=== PATIENT | female | born 1960 | race Caucasian/White ===

== ENCOUNTER 2018-04-08 18:01 | Emergency (ER) | payer OTHER ==
--- OUTSIDE RECORDS SUMMARY | 2018-04-08 18:03 | XMS REPORT ---
:1960 Author Organization [employer]Works Care Team Providers Name Role Phone Salomon, Na Provider Role Unavailable Allergies, Adverse Reactions, Alerts Substance Reaction Event Type Morphine Sulfate nausea Drug Allergy Problems Problem Type Condition Code Onset Dates Condition Status Problem Depression with anxiety F41.8 Active Problem Constipation K59.00 Active Problem Seizures R56.9 Active Problem Allergic rhinitis J30.9 Active Assessment Hyperlipidemia E78.5 Active Problem Hypothyroidism E03.9 Active Assessment Hypothyroidism E03.9 Active Assessment Vitamin D deficiency E55.9 Active Problem Hyperlipidemia E78.5 Active Problem Urinary frequency R35.0 Active Problem Hypotension I95.9 Active Problem Benign essential HTN I10 Active Problem Vitamin D deficiency E55.9 Active Problem Localized osteoporosis, unspecified M81.6 Active pathological fracture presence Assessment Benign essential HTN I10 Active Assessment Depression with anxiety F41.8 Active Problem Gastroesophageal reflux disease K21.9 Active without esophagitis Problem Nicotine dependence F17.200 Active Assessment Edema, unspecified type R60.9 Active Problem Vomiting without nausea, R11.11 Active intractability of vomiting not specified, unspecified vomiting type Problem Localized swelling, mass and lump, R22.1 Active neck Assessment Primary insomnia F51.01 Active Problem Mild obesity E66.9 Active Problem Primary insomnia F51.01 Active Medications Medication Code Code Instructions Start End Status Dosage System Date Date Metoprolol [facility] 51488563540 25 MG Orally Active 1 tablet Tartrate Twice a day with food Levothyroxine [facility] 02745417809 88 MCG Orally Active 1 tablet Sodium Once a day on an empty stomach in the morning Potassium NDC 0 Active not defined Furosemide ND 08424275660 40 MG Orally Active 1 tablet Once a day Ambien [facility] 81577443922 10 MG Orally Active 1 tablet Once a day at bedtime as needed Amlodipine [facility] 46203217598 10 MG Orally Active 1 tablet Besylate Once a day Pravastatin [facility] 35939756350 20 MG Orally Active 1 tablet Sodium Once a day Omeprazole [facility] 42724380571 40 MG Orally Active 1 capsule Once a day ProAir HFA [facility] 27150676710 108 (90 Base) Active 1 puff as MCG/ACT needed Inhalation every 6 hours Amitiza [facility] 53888202552 24 MCG Orally Active 1 capsule Twice a day with food Cymbalta [facility] 81676029509 60 MG Orally Active 1 capsule Once a day Furosemide [facility] 96983205698 80 MG Orally Active 1 tablet Once a day Cozaar [facility] 36819423431 100 MG Orally Active 1 tablet Once a day Trazodone HCl [facility] 13835160606 50 MG Orally November 21, Active 1 tablet Once a day 2018 at bedtime as needed Dilaudid [facility] 15821308933 4 MG Orally Active 1 tablet every 4 hrs as needed Advair Diskus [facility] 40680444916 250-50 MCG/DOSE Active 1 puff Inhalation Twice a day Dilantin [facility] 39116918396 100 MG Orally Active 5 capsule Results Name Result Date Reference Range Unit Abnormality Flag Lipid Profile ----HDL Cholesterol 72 97178267 40-60 mg/dL H ----LDL Cholesterol, 102 22312856 <130 Calculated ----Cholesterol/HDL Ratio 2.63 51432085 ----Cholesterol Level 189 71528840 <200 mg/dL ----Triglycerides Level 75 21504317 <150 mg/dL T4 Free ----T4 Free 0.91 09792496 0.76-1.46 CBC with Automated Diff ----Basophils % 0.8 78809674 0-1.3 % ----Eosinophils % 3.1 05652372 0-4.4 % ----Absolute Lymphocytes 1.5 15247196 0.7-4.9 (CBC) ----Absolute Neutrophil 3.2 24409695 1.8-8.0 ----Red Cell Distribution 13.7 71891143 12.1-15.2 % Width ----Absolute Eosinophils 0.2 25289404 0-0.5 ----Platelets 201 89711211 152-406 ----Absolute Monocytes 0.5 78540614 0.1-1.3 ----MCHC 34.3 00622914 32.0-36.0 g/dL ----MCH 31.2 08148867 27.0-35.0 pg ----MCV 90.9 59206789 80-100 fL ----Neutrophils % 59.0 88608922 41.7-73.7 % ----MPV 8.6 30325461 7.6-11.3 fL ----Monocytes % 9.3 60627860 3.3-12.3 % ----Lymphocytes % 27.8 68729222 15.3-44.8 % ----Absolute Basophils 0.0 55748736 0-0.5 ----White Blood Count 5.5 13782255 4.3-10.9 ----RBC Red Blood Cell Count 4.87 23106946 3.86-4.86 M/ul H ----Hemoglobin 15.2 51526931 12.0-15.0 g/dL H ----Hematocrit 44.3 20171122 36.0-45.0 % Comprehensive Metabolic Panel ----Creatinine 0.80 20171122 0.55-1.3 mg/dL ----BUN Blood Urea Nitrogen 18 20171122 7-18 mg/dL ----AST/SGOT 20 20171122 15-37 U/L ----Glomerular Filtration 74 20171122 =/>90 mL L Rate ----Alkaline Phosphatase 89 20171122 45-117 U/L ----Bilirubin Total 0.3 20171122 0.2-1.0 mg/dL ----ALT/SGPT 27 20171122 12-78 U/L ----Albumin 3.7 20171122 3.4-5.0 g/dL ----Bicarbonate 35 20171122 21-32 mmol/L H ----Globulin 3.8 97241826 2.3-3.5 g/dL H ----Glucose Level 71 50640436 74-106 mg/dL L ----Potassium 3.8 81150662 3.5-5.1 mmol/L ----Calcium Level 8.8 66350848 8.5-10.1 mg/dL ----Protein, Total 7.5 20171122 6.4-8.2 g/dL ----Chloride Level 101 20171122 98-107 mmol/L ----Sodium Level 136 20171122 136-145 mmol/L ----Albumin/Globulin Ratio 1.0 20171122 1.1-1.8 L TSH Thyroid Stimulating Hormone ----Thyroid Stimulating 3.56 20171122 0.36-3.74 [iU]/L Hormone Vitamin D, 25 (OH), TOTAL ----Vitamin D, 25 (OH), TOTAL 23.4 20171122 30-100 ng/mL L Summary Purpose eClinicalWorks Submission
--- OUTSIDE RECORDS SUMMARY | 2018-04-08 18:03 | XMS REPORT ---
:1960 Author Organization eClinicalWorks Care Team Providers Name Role Phone Salomon, Na Provider Role Unavailable Allergies No Known Allergies Problems Problem Type Condition Code Onset Dates Condition Status Problem Depression with anxiety F41.8 Active Problem Constipation K59.00 Active Problem Seizures R56.9 Active Problem Allergic rhinitis J30.9 Active Problem Hypothyroidism E03.9 Active Problem Hyperlipidemia E78.5 Active Problem Urinary frequency R35.0 Active Problem Hypotension I95.9 Active Problem Benign essential HTN I10 Active Problem Vitamin D deficiency E55.9 Active Problem Localized osteoporosis, unspecified M81.6 Active pathological fracture presence Problem Gastroesophageal reflux disease K21.9 Active without esophagitis Problem Nicotine dependence F17.200 Active Problem Vomiting without nausea, R11.11 Active intractability of vomiting not specified, unspecified vomiting type Problem Localized swelling, mass and lump, R22.1 Active neck Problem Mild obesity E66.9 Active Problem Primary insomnia F51.01 Active Medications Medication Code System Code Instructions Start End Date Status Dosage Date Amitiza [facility] 46010682786 24 MCG Orally Active 1 capsule Twice a day with food Results No Known Results Summary Purpose eClinicalWorks Submission
--- OUTSIDE RECORDS SUMMARY | 2018-04-08 18:03 | XMS REPORT | Clinical Summary ---
:1960 Author Organization [employer] [facility] Address [address] [place] [address] Care Team Providers Name Role Phone Bong Primary Care Provider Allergies No Known Allergies Medications Medication Sig Dispensed Refills Start Date End Date Status traZODone (DESYREL) Take 50 mg by 0 Active 50 MG tablet mouth nightly Does not know dose . cholecalciferol, Take 5,000 Units 0 Active vitamin D3, 5,000 by mouth once a unit Tab week. UNKNOWN Blood pressure 0 Active med does not know name nor dose . potassium chloride Take 1 tablet (10 10 tablet 0 08/28/2016 08/28/2017 (KLOR-CON) 10 MEQ CR mEq total) by tablet mouth 2 (two) times daily. Active Problems Problem Noted Date Suicidal ideation 08/29/2016 Alcohol intoxication 08/29/2016 Fall, initial encounter 08/29/2016 Social History Tobacco Use Types Packs/Day Years Used Date Current Every Day Smoker Alcohol Use Drinks/Week oz/Week Comments Yes 4 Glasses of wine 2.4 Sex Assigned at Date Recorded Not on file Job Start Date Occupation Industry Not on file Not on file Not on file Travel History Travel Start Travel End No recent travel history available. Last Filed Vital Signs Not on file Plan of Treatment Not on file Results Not on fileafter 04/07/2017 Advance Directives For more information, please contact:[facility] [employer] [place] [address] [address] [place], [place] [phone] Code Status Date Activated Date Inactivated Comments Full Code 08/29/2016 12:42 AM 08/29/2016 4:35 PM This code status was determined by: Patient
--- OUTSIDE RECORDS SUMMARY | 2018-04-08 18:03 | XMS REPORT ---
:1960 [facility] [place] [address] [place] [id number] Care Team Providers Name Role Phone CALLUM CERRATO Unavailable Unavailable Problems This patient has no known problems. Allergies, Adverse Reactions, Alerts This patient has no known allergies or adverse reactions. Medications This patient has no known medications. Results Test Description Test Time Test Comments Text Results Atomic Results Result Comments RAPID DRUG SCREEN, URINE 2016-08-29 06:02:00 Test Item Value Reference Range Comments BARBITURATE URINE (BEAKER) (test xlqu=804) Negative Negative BENZODIAZEPINE SCREEN URINE (BEAKER) (test icgb=781) Negative Negative COCAINE (METAB.) SCREEN (BEAKER) (test njun=0062) Negative Negative METHADONE SCREEN (BEAKER) (test zjxf=1224) Negative Negative OPIATE SCREEN URINE (BEAKER) (test wxic=459) Negative Negative CANNABINOID SCREEN URINE (BEAKER) (test nccm=386) Negative Negative AMPH/METHAMPH SCREEN (BEAKER) (test mude=7842) Negative Negative PHENCYCLIDINE SCREEN URINE (BEAKER) (test ronc=883) Negative Negative OXYCODONE SCREEN URINE (BEAKER) (test lwjv=5619) Negative Negative DRUG CUTOFF CONC.Cocaine 300 ng/mL Cannabinoid 50 ng/mL Benzodiazepine 200 ng/mLBarbiturate 200 ng/ mLPhencyclidine 25 ng/mLOpiate 300 ng/mLMethadone 300 ng/mLAmphetamine/ 1000 ng/mL MethamphetamineOxycodone 300 ng/mLURINALYSIS W/ [id number] 05:47:00 Test Item Value Reference Range Comments COLOR (BEAKER) (test mpzc=489) Light Yellow CLARITY (BEAKER) (test iwgo=825) Clear SPECIFIC GRAVITY UA (BEAKER) (test gykn=319) 1.001 1.001-1.035 PH UA (BEAKER) (test gczm=926) 7.0 5.0-8.0 PROTEIN UA (BEAKER) (test acit=854) Negative Negative GLUCOSE UA (BEAKER) (test mtpn=636) Negative Negative KETONES UA (BEAKER) (test jknj=930) Negative Negative BILIRUBIN UA (BEAKER) (test zlow=814) Negative Negative BLOOD UA (BEAKER) (test qunf=578) Negative Negative NITRITE UA (BEAKER) (test zhqf=115) Negative Negative LEUKOCYTE ESTERASE UA (BEAKER) (test lutr=855) Large Negative UROBILINOGEN UA (BEAKER) (test soma=995) 0.2 mg/dL 0.2-1.0 RBC UA (BEAKER) (test dcmm=048) 0 /HPF WBC UA (BEAKER) (test giqd=550) 28 /HPF BACTERIA (BEAKER) (test pchs=882) Rare SQUAMOUS EPITHELIAL (BEAKER) (test ewbn=740) < /HPF SOURCE(BEAKER) (test irkt=0873) Urine, Voided BASIC METABOLIC [id number] 02:25:00 Test Item Value Reference Range Comments SODIUM (BEAKER) (test 139 meq/L 136-145 vhzr=884) POTASSIUM (BEAKER) (test 3.9 meq/L 3.5-5.1 ehwr=034) CHLORIDE (BEAKER) (test 104 meq/L 98-107 vdmu=170) CO2 (BEAKER) (test 26 meq/L 22-29 xgtg=148) BLOOD UREA NITROGEN 11 mg/dL 7-21 (BEAKER) (test oigb=643) CREATININE (BEAKER) (test 0.78 mg/dL 0.57-1.25 qekh=326) GLUCOSE RANDOM (BEAKER) 82 mg/dL 70-105 (test docs=689) CALCIUM (BEAKER) (test 8.2 mg/dL 8.4-10.2 vpwh=628) EGFR (BEAKER) (test 76 mL/min/1.73 sq m ESTIMATED GFR IS NOT tqal=2810) ACCURATE CREATININE CLEARANCE IN PREDICTING GLOMERULAR FILTRATION RATE. ESTIMATED GFR IS NOT APPLICABLE FOR DIALYSIS PATIENTS. CBC W/PLT COUNT & AUTO [id number] 02:17:00 Test Item Value Reference Range Comments WHITE BLOOD CELL COUNT (BEAKER) (test fuxc=579) 4.9 K/ L 4.0-10.0 RED BLOOD CELL COUNT (BEAKER) (test ogby=620) 4.00 M/ L 4.00-5.00 HEMOGLOBIN (BEAKER) (test zzmz=761) 13.2 GM/DL 12.0-15.0 HEMATOCRIT (BEAKER) (test fnxm=617) 38.7 % 36.0-45.0 MEAN CORPUSCULAR VOLUME (BEAKER) (test myxm=152) 96.7 fL 82.0-99.0 MEAN CORPUSCULAR HEMOGLOBIN (BEAKER) (test 32.9 pg 27.0-33.0 ylax=773) MEAN CORPUSCULAR HEMOGLOBIN CONC (BEAKER) (test 34.0 GM/DL 32.0-36.0 tqtb=647) RED CELL DISTRIBUTION WIDTH (BEAKER) (test 13.3 % 10.3-14.2 rujg=100) PLATELET COUNT (BEAKER) (test wouq=281) 216 K/CU MM 150-430 MEAN PLATELET VOLUME (BEAKER) (test tpvm=103) 6.9 fL 6.5-10.5 NUCLEATED RED BLOOD CELLS (BEAKER) (test 0 /100 WBC 0-0 rbaz=291) NEUTROPHILS RELATIVE PERCENT (BEAKER) (test 50 % cpui=905) LYMPHOCYTES RELATIVE PERCENT (BEAKER) (test 38 % chzv=895) MONOCYTES RELATIVE PERCENT (BEAKER) (test 7 % yfnn=989) EOSINOPHILS RELATIVE PERCENT (BEAKER) (test 4 % toyx=796) BASOPHILS RELATIVE PERCENT (BEAKER) (test 1 % sths=729) NEUTROPHILS ABSOLUTE COUNT (BEAKER) (test 2.44 K/ L 1.80-8.00 ouyh=337) LYMPHOCYTES ABSOLUTE COUNT (BEAKER) (test 1.85 K/ L 1.48-4.50 chep=210) MONOCYTES ABSOLUTE COUNT (BEAKER) (test 0.37 K/ L 0.00-1.30 mxyb=633) EOSINOPHILS ABSOLUTE COUNT (BEAKER) (test 0.18 K/ L 0.00-0.50 ltlf=569) BASOPHILS ABSOLUTE COUNT (BEAKER) (test 0.04 K/ L 0.00-0.20 emjw=813) [id number] 20:56:00 Test Item Value Reference Range Comments ETHANOL (BEAKER) (test boit=820) 259 mg/dL <=10 BASIC METABOLIC [id number] 20:55:00 Test Item Value Reference Range Comments SODIUM (BEAKER) (test 136 meq/L 136-145 shut=774) POTASSIUM (BEAKER) (test 3.3 meq/L 3.5-5.1 rpxi=911) CHLORIDE (BEAKER) (test 100 meq/L 98-107 ddda=462) CO2 (BEAKER) (test 24 meq/L 22-29 mvmu=484) BLOOD UREA NITROGEN 10 mg/dL 7-21 (BEAKER) (test otxa=865) CREATININE (BEAKER) (test 0.74 mg/dL 0.57-1.25 airz=590) GLUCOSE RANDOM (BEAKER) 77 mg/dL 70-105 (test zsjz=252) CALCIUM (BEAKER) (test 8.3 mg/dL 8.4-10.2 kkoy=294) EGFR (BEAKER) (test mL/min/1.73 sq m INSUFFICIENT CLINICAL DATA bghl=3560) TO CALCULATE ESTIMATED GFR. HEPATIC FUNCTION [id number] 20:54:00 Test Item Value Reference Range Comments TOTAL PROTEIN (BEAKER) (test nlmy=500) 7.0 gm/dL 6.0-8.3 ALBUMIN (BEAKER) (test rvby=4510) 4.0 g/dL 3.5-5.0 BILIRUBIN TOTAL (BEAKER) (test ipes=742) 0.2 mg/dL 0.2-1.2 BILIRUBIN DIRECT (BEAKER) (test ruxd=209) 0.1 mg/dL 0.1-0.5 ALKALINE PHOSPHATASE (BEAKER) (test odby=344) 89 U/L 40-150 AST (SGOT) (BEAKER) (test wnjy=893) 22 U/L 5-34 ALT (SGPT) (BEAKER) (test pfmz=242) 22 U/L 6-55 CBC W/PLT COUNT & AUTO [id number] 20:36:00 Test Item Value Reference Range Comments WHITE BLOOD CELL COUNT (BEAKER) (test swih=122) 7.5 K/ L 4.0-10.0 RED BLOOD CELL COUNT (BEAKER) (test nugx=451) 3.99 M/ L 4.00-5.00 HEMOGLOBIN (BEAKER) (test tgfu=582) 13.8 GM/DL 12.0-15.0 HEMATOCRIT (BEAKER) (test whqb=020) 37.9 % 36.0-45.0 MEAN CORPUSCULAR VOLUME (BEAKER) (test mmfe=130) 94.9 fL 82.0-99.0 MEAN CORPUSCULAR HEMOGLOBIN (BEAKER) (test 34.7 pg 27.0-33.0 iqyq=094) MEAN CORPUSCULAR HEMOGLOBIN CONC (BEAKER) (test 36.5 GM/DL 32.0-36.0 uagr=619) RED CELL DISTRIBUTION WIDTH (BEAKER) (test 12.4 % 10.3-14.2 ceqs=855) PLATELET COUNT (BEAKER) (test cpyb=083) 218 K/CU MM 150-430 MEAN PLATELET VOLUME (BEAKER) (test mxlo=826) 6.5 fL 6.5-10.5 NUCLEATED RED BLOOD CELLS (BEAKER) (test 0 /100 WBC 0-0 qujz=914) NEUTROPHILS RELATIVE PERCENT (BEAKER) (test 50 % unzn=126) LYMPHOCYTES RELATIVE PERCENT (BEAKER) (test 39 % edqa=612) MONOCYTES RELATIVE PERCENT (BEAKER) (test 8 % ihvj=136) EOSINOPHILS RELATIVE PERCENT (BEAKER) (test 3 % lfas=693) BASOPHILS RELATIVE PERCENT (BEAKER) (test 1 % dlvd=668) NEUTROPHILS ABSOLUTE COUNT (BEAKER) (test 3.71 K/ L 1.80-8.00 bdwl=970) LYMPHOCYTES ABSOLUTE COUNT (BEAKER) (test 2.90 K/ L 1.48-4.50 zrgi=292) MONOCYTES ABSOLUTE COUNT (BEAKER) (test 0.63 K/ L 0.00-1.30 yddc=516) EOSINOPHILS ABSOLUTE COUNT (BEAKER) (test 0.20 K/ L 0.00-0.50 lfxe=980) BASOPHILS ABSOLUTE COUNT (BEAKER) (test 0.05 K/ L 0.00-0.20 wiiy=304) 0.00
--- OUTSIDE RECORDS SUMMARY | 2018-04-08 18:03 | XMS REPORT ---
:1960 Author Organization [employer]Works Care Team Providers Name Role Phone Aime, Bailey Provider Role Unavailable Allergies No Known Allergies Problems Problem Type Condition Code Onset Dates Condition Status Problem Depression with anxiety F41.8 Active Problem Constipation K59.00 Active Problem Seizures R56.9 Active Problem Allergic rhinitis J30.9 Active Assessment Hypothyroidism E03.9 Active Problem Hypothyroidism E03.9 Active Assessment Depression with anxiety F41.8 Active Problem Hyperlipidemia E78.5 Active Problem Urinary frequency R35.0 Active Problem Hypotension I95.9 Active Problem Benign essential HTN I10 Active Problem Vitamin D deficiency E55.9 Active Problem Localized osteoporosis, unspecified M81.6 Active pathological fracture presence Assessment Edema, unspecified type R60.9 Active Assessment Benign essential HTN I10 Active Problem Gastroesophageal reflux disease K21.9 Active without esophagitis Problem Nicotine dependence F17.200 Active Problem Vomiting without nausea, R11.11 Active intractability of vomiting not specified, unspecified vomiting type Problem Localized swelling, mass and lump, R22.1 Active neck Problem Mild obesity E66.9 Active Problem Primary insomnia F51.01 Active Medications Medication Code Code Instructions Start End Status Dosage System Date Date Furosemide [facility] 59083410125 40 MG Orally Active 1 tablet Once a day Levothyroxine [facility] 93891474173 88 MCG Orally Active 1 tablet Sodium Once a day on an empty stomach in the morning Cozaar [facility] 51291459626 100 MG Orally Active 1 tablet Once a day Cymbalta [facility] 43237709478 60 MG Orally Active 1 capsule Once a day Results No Known Results Summary Purpose eClinicalWorks Submission
--- OUTSIDE RECORDS SUMMARY | 2018-04-08 18:04 | XMS REPORT ---
:1960 Author Organization [employer]Works Care Team Providers Name Role Phone Salomon, Na Provider Role Unavailable Allergies, Adverse Reactions, Alerts Substance Reaction Event Type Morphine Sulfate nausea Drug Allergy Problems Problem Type Condition Code Onset Dates Condition Status Assessment BMI 24.0-24.9, adult Z68.24 Active Assessment Other constipation K59.09 Active Problem Localized swelling, mass and lump, R22.1 Active neck Assessment Edema, unspecified type R60.9 Active Problem Primary insomnia F51.01 Active Assessment Primary insomnia F51.01 Active Problem Depression with anxiety F41.8 Active Problem Constipation K59.00 Active Problem Seizures R56.9 Active Problem Allergic rhinitis J30.9 Active Problem Hypothyroidism E03.9 Active Assessment Hypothyroidism E03.9 Active Assessment Hyperlipidemia E78.5 Active Problem Hyperlipidemia E78.5 Active Assessment Vitamin D deficiency E55.9 Active Problem Urinary frequency R35.0 Active Problem Hypotension I95.9 Active Problem Benign essential HTN I10 Active Problem Vitamin D deficiency E55.9 Active Problem Localized osteoporosis, unspecified M81.6 Active pathological fracture presence Assessment Depression with anxiety F41.8 Active Assessment Benign essential HTN I10 Active Problem Gastroesophageal reflux disease K21.9 Active without esophagitis Problem Nicotine dependence F17.200 Active Problem Vomiting without nausea, R11.11 Active intractability of vomiting not specified, unspecified vomiting type Problem Mild obesity E66.9 Active Medications Medication Code Code Instructions Start End Status Dosage System Date Date Trazodone HCl [facility] 92473783533 50 MG Orally Active 1 tablet Once a day at bedtime as needed Amitiza [facility] 63432964776 24 MCG Orally Active 1 capsule Twice a day with food Metoprolol ND 75536549790 25 MG Orally Active 1 tablet Tartrate Twice a day with food Furosemide [facility] 27911883061 80 MG Orally Active 1 tablet Once a day Cymbalta [facility] 79560134843 60 MG Orally Active 1 capsule Once a day Furosemide ND 09885847282 40 MG Orally Active 1 tablet Once a day Dilantin [facility] 31886112466 100 MG Orally Active 5 capsule Advair Diskus [facility] 77006095310 250-50 MCG/DOSE Active 1 puff Inhalation Twice a day Amlodipine [facility] 54967461156 10 MG Orally Active 1 tablet Besylate Once a day Dilaudid [facility] 64052647333 4 MG Orally Active 1 tablet every 4 hrs as needed Levothyroxine [facility] 85289357050 88 MCG Orally Active 1 tablet Sodium Once a day on an empty stomach in the morning Phenytoin [facility] [address]-89 Active not defined ProAir HFA [facility] 97574168467 108 (90 Base) Active 1 puff as MCG/ACT needed Inhalation every 6 hours Omeprazole [facility] 60480795640 40 MG Orally Active 1 capsule Once a day Pravastatin [facility] 04811839592 20 MG Orally Active 1 tablet Sodium Once a day Ambien [facility] 72714943674 10 MG Orally Active 1 tablet Once a day at bedtime as needed Potassium NDC 0 Active not defined Cozaar [facility] 30514596956 100 MG Orally Active 1 tablet Once a day Results No Known Results Summary Purpose eClinicalWorks Submission
[2018-04-08 19:27] LABS: Hematocrit 40.9 % (36.0-45.0); MCH 31.7 pg (27.0-35.0); MCV 93.6 fL (80-100); MPV 8.3 fL (7.6-11.3); RBC Red Blood Cell Count 4.37 M/uL (3.86-4.86)
[2018-04-08 19:32] LABS: Protime INR 0.98
--- NOTE | 2018-04-08 19:59 | ER ---
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 Patient reports scratching her forearm. Also reports left calf pain and swelling that started today. Transition of care: patient was not received from another setting of care. Onset of symptoms was April 08, 2018. Risk Assessment: Do you want to hurt yourself or someone else? Patient reports no desire to harm self or others. Initial Sepsis Screen: Does the patient meet any 2 criteria? No. Patient's initial sepsis screen is negative. Does the patient have a suspected source of infection? No. Patient's initial sepsis screen is negative. Care prior to arrival: None. 18:05 Method Of Arrival: Ambulatory aj 18:05 Acuity: MARILYNN 3 aj Triage Assessment: 18:06 General: Appears in no apparent distress. comfortable, Behavior is calm, cooperative, aj appropriate for age. Pain: Complains of pain in left calf and medial aspect of left calf. Neuro: Level of Consciousness is awake, alert, obeys commands, Oriented to person, place, time, situation, Appropriate for age. Respiratory: Airway is patent Respiratory effort is even, unlabored, Respiratory pattern is regular, symmetrical. Derm: Skin is intact, is healthy with good turgor, Skin is pink, warm \T\ dry. normal, Bruising that is dark purple, on dorsal aspect of left forearm Reports itching. Historical: - Allergies: 18:06 No Known Allergies; aj - Home Meds: 18:06 blood pressure med [Active]; Multi Vitamin Oral [Active]; cholesterol med [Active]; aj oxycodone [Active]; seizure pill [Active]; vit d [Active]; - PMHx: 18:06 chronic back pain; Hyperlipidemia; Hypertension; Seizures; aj - PSHx: 18:06 Appendectomy; abdominal surgery; insertion of pain pump; Tonsillectomy; aj - Immunization history:: Adult Immunizations up to date. - Social history:: Smoking status: Patient uses tobacco products, smokes one pack cigarettes per day. - Ebola Screening: : Patient negative for fever greater than or equal to 101.5 degrees Fahrenheit, and additional compatible Ebola Virus Disease symptoms Patient denies exposure to infectious person Patient denies travel to an Ebola-affected area in the 21 days before illness onset No symptoms or risks identified at this time. Screenin:13 Abuse screen: Denies threats or abuse. Denies injuries from another. Nutritional mg2 screening: No deficits noted. Tuberculosis screening: No symptoms or risk factors identified. Fall Risk None identified. Assessment: 18:14 General: Appears in no apparent distress. comfortable, slender, well groomed, well tl3 developed, well nourished, Behavior is calm, cooperative, appropriate for age. Pain: Complains of pain in left arm and dorsal aspect of left forearm and medial aspect of left calf. Neuro: Level of Consciousness is awake, alert, obeys commands, Oriented to person, place, time, situation, Appropriate for age. Cardiovascular: Patient's skin is warm and dry. Respiratory: Airway is patent Respiratory effort is even, unlabored. GI: No signs and/or symptoms were reported involving the gastrointestinal system. : No signs and/or symptoms were reported regarding the genitourinary system. EENT: No signs and/or symptoms were reported regarding the EENT system. Derm: Reports itching, since today while sleeping, woke with left arm pain bruising noted where scratching occurred. Musculoskeletal: Reports pain in medial aspect of left calf and left calf. Vital Signs: 18:06 BP 132 / 82; Pulse 54; Resp 19; Temp 98.6; Pulse Ox 99% on R/A; Weight 58.06 kg; Height aj 5 ft. 2 in. (157.48 cm); 20:05 BP 128 / 82; Pulse 59; Resp 17; Pulse Ox 98% on R/A; Pain 0/10; mg2 18:06 Body Mass Index 23.41 (58.06 kg, 157.48 cm) ED Course: 18:02 Patient arrived in ED. mr 18:03 Bailey Salomon MD is Private Physician. mr 18:06 Triage completed. aj 18:06 Arm band placed on left wrist. Patient placed in an exam room. aj 18:11 Oh Aburto, ELIANE is Primary Nurse. mg2 18:13 No provider procedures requiring assistance completed. Patient did not have IV access mg2 during this emergency room visit. 18:14 Smith Abrams MD is Attending Physician. 18:14 Patient has correct armband on for positive identification. Bed in low position. Call tl3 light in reach. 19:06 Initial lab(s) drawn, by me, sent to lab. mg2 Administered Medications: No medications were administered Outcome: 19:58 Discharge ordered by . 20:05 Discharged to home ambulatory, with family. mg2 20:05 Condition: stable 20:05 Discharge instructions given to patient, family, Instructed on discharge instructions, follow up and referral plans. Demonstrated understanding of instructions, follow-up care. 20:06 Patient left the ED. mg2 Signatures: Rahel Peraza, RN RN Coreen Wade Smith Abrams MD MD Kirstie Barth RN RN tl3 Oh Aburto RN RN mg2
--- NOTE | 2018-04-08 19:59 | EDPHYS ---
Physician Documentation [facility] Name: Deann Bhatia Age: 57 yrs Sex: Female : 1960 Arrival Date: 04/08/2018 Time: 18:02 Bed 23 Private MD: Bailey Salomon ED Physician Ishmael Abramsory HPI: 04/08 19:55 This 57 yrs old Female presents to ER via Ambulatory with complaints of Skin gs Sore(s). 19:55 The patient's rash thought to be caused by scratching arms noticed bruising afterwards. gs The rash is located on the dorsal aspect of right forearm and dorsal aspect of left forearm. The rash can be described as flat. Onset: The symptoms/episode began/occurred just prior to arrival. Associated signs and symptoms: Pertinent negatives: difficulty breathing. Severity of symptoms: At their worst the symptoms were moderate in the emergency department the symptoms are unchanged. The patient has not experienced similar symptoms in the past. Historical: - Allergies: 18:06 No Known Allergies; aj - Home Meds: 18:06 blood pressure med [Active]; Multi Vitamin Oral [Active]; cholesterol med [Active]; aj oxycodone [Active]; seizure pill [Active]; vit d [Active]; - PMHx: 18:06 chronic back pain; Hyperlipidemia; Hypertension; Seizures; aj - PSHx: 18:06 Appendectomy; abdominal surgery; insertion of pain pump; Tonsillectomy; aj - Immunization history:: Adult Immunizations up to date. - Social history:: Smoking status: Patient uses tobacco products, smokes one pack cigarettes per day. - Ebola Screening: : Patient negative for fever greater than or equal to 101.5 degrees Fahrenheit, and additional compatible Ebola Virus Disease symptoms Patient denies exposure to infectious person Patient denies travel to an Ebola-affected area in the 21 days before illness onset No symptoms or risks identified at this time. ROS: 19:55 All other systems are negative. gs Exam: 19:55 Head/Face: Normocephalic, atraumatic. Eyes: Pupils equal round and reactive to light, gs extra-ocular motions intact. Lids and lashes normal. Conjunctiva and sclera are non-icteric and not injected. Cornea within normal limits. Periorbital areas with no swelling, redness, or edema. ENT: Nares patent. No nasal discharge, no septal abnormalities noted. Tympanic membranes are normal and external auditory canals are clear. Oropharynx with no redness, swelling, or masses, exudates, or evidence of obstruction, uvula midline. Mucous membranes moist. Neck: Trachea midline, no thyromegaly or masses palpated, and no cervical lymphadenopathy. Supple, full range of motion without nuchal rigidity, or vertebral point tenderness. No Meningismus. Chest/axilla: Normal chest wall appearance and motion. Nontender with no deformity. No lesions are appreciated. Cardiovascular: Regular rate and rhythm with a normal S1 and S2. No gallops, murmurs, or rubs. Normal PMI, no JVD. No pulse deficits. Respiratory: Lungs have equal breath sounds bilaterally, clear to auscultation and percussion. No rales, rhonchi or wheezes noted. No increased work of breathing, no retractions or nasal flaring. Abdomen/GI: Soft, non-tender, with normal bowel sounds. No distension or tympany. No guarding or rebound. No evidence of tenderness throughout. Back: No spinal tenderness. No costovertebral tenderness. Full range of motion. MS/ Extremity: Pulses equal, no cyanosis. Neurovascular intact. Full, normal range of motion. Neuro: Awake and alert, GCS 15, oriented to person, place, time, and situation. Cranial nerves II-XII grossly intact. Motor strength 5/5 in all extremities. Sensory grossly intact. Cerebellar exam normal. Normal gait. 19:55 Constitutional: The patient appears alert, awake. 19:55 Skin: Appearance: ecchymosis, noted on the, dorsal aspect of right forearm and dorsal aspect of left forearm, that are moderate. Vital Signs: 18:06 BP 132 / 82; Pulse 54; Resp 19; Temp 98.6; Pulse Ox 99% on R/A; Weight 58.06 kg; Height aj 5 ft. 2 in. (157.48 cm); 20:05 BP 128 / 82; Pulse 59; Resp 17; Pulse Ox 98% on R/A; Pain 0/10; mg2 18:06 Body Mass Index 23.41 (58.06 kg, 157.48 cm) aj MDM: 18:36 Patient medically screened. 19:55 Differential diagnosis: thrombocytopenia, ecchymosis second to trauma,itp. Data gs reviewed: vital signs, nurses notes. Counseling: I had a detailed discussion with the patient and/or guardian regarding: the historical points, exam findings, and any diagnostic results supporting the discharge/admit diagnosis, lab results. Response to treatment: There is no appreciated change of the patient's symptoms at this time, and as a result, I will discharge patient. 04/08 18:39 Order name: CBC w/o diff 04/08 18:39 Order name: PT-INR 04/08 18:40 Order name: CBC without Diff; Complete Time: 19:55 EDMS 04/08 18:40 Order name: Protime (+INR); Complete Time: 19:55 EDMS Administered Medications: No medications were administered Disposition: 04/08/18 19:58 Discharged to Home. Impression: Rash and other nonspecific skin eruption. - Condition is Stable. - Discharge Instructions: Rash, [id number]. - Medication Reconciliation Form, Thank You Letter, Antibiotic Education, Prescription Opioid Use form. - Follow up: Private Physician; When: 2 - 3 days; Reason: Re-evaluation by your physician. Signatures: Dispatcher [employer] Rahel Caruso RN RN Smith Coffman MD MD gs Gardose, Michele, RN RN mg2 Corrections: (The following items were deleted from the chart) 20:06 19:58 04/08/2018 19:58 Discharged to Home. Impression: Rash and other nonspecific skin mg2 eruption. Condition is Stable. Forms are Medication Reconciliation Form, Thank You Letter, Antibiotic Education, Prescription Opioid Use. Follow up: Private Physician; When: 2 - 3 days; Reason: Re-evaluation by your physician. gs
== END 2018-04-08 20:06 | disposition home or self-care (01) ==
LOC: ER 18:01
DX: R21 Rash and other nonspecific skin eruption (principal); E78.5 Hyperlipidemia, unspecified; I10 Essential (primary) hypertension; G40.909 Epilepsy, unspecified, not intractable, without status epilepticus; F17.210 Nicotine dependence, cigarettes, uncomplicated; Z79.899 Other long term (current) drug therapy
CPT/HCPCS: 36415; 85027; 85610; 99283

== ENCOUNTER 2019-08-03 06:47 | Emergency (ER) | payer OTHER ==
--- OUTSIDE RECORDS SUMMARY | 2019-08-03 06:51 | XMS REPORT ---
:1960 Author Organization e[employer] Care Team Providers Name Role Phone Salomon, Na Provider Role Unavailable Allergies, Adverse Reactions, Alerts Substance Reaction Event Type Morphine Sulfate nausea Drug Allergy Problems Problem Type Condition Code Onset Dates Condition Status Assessment Encounter for tobacco use cessation Z71.6 Active counseling Assessment Recurrent falls R29.6 Active Assessment Edema, unspecified type R60.9 Active Assessment Cigarette nicotine dependence F17.210 Active without complication Assessment Depression with anxiety F41.8 Active Assessment Change in stool caliber R19.5 Active Assessment Abnormal weight loss R63.4 Active Assessment Hyperlipidemia E78.5 Active Assessment Hypothyroidism E03.9 Active Problem Seizures R56.9 Active Assessment Benign essential HTN I10 Active Problem Mild obesity E66.9 Active Assessment Intractable vomiting with nausea, R11.2 Active unspecified vomiting type Problem Gastroesophageal reflux disease K21.9 Active without esophagitis Problem Localized swelling, mass and lump, R22.1 Active neck Problem Nicotine dependence F17.200 Active Problem Epigastric pain R10.13 Active Problem Hypotension 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 Active Problem Urinary frequency R35.0 Active Problem Abnormal weight loss R63.4 Active Assessment Epigastric pain R10.13 Active Problem Localized osteoporosis, unspecified M81.6 Active pathological fracture presence Problem Primary insomnia F51.01 Active Problem Cigarette nicotine dependence F17.210 Active without complication Problem Vomiting without nausea, R11.11 Active intractability of vomiting not specified, unspecified vomiting type Problem Hypothyroidism E03.9 Active Assessment Vitamin D deficiency E55.9 Active Problem Allergic rhinitis J30.9 Active Problem Vitamin D deficiency E55.9 Active Problem Benign essential HTN I10 Active Problem Hypotension I95.9 Active Problem Depression with anxiety F41.8 Active Problem Hyperlipidemia E78.5 Active Problem Constipation K59.00 Active Medications Medication Code Code Instructions Start End Status Dosage System Date Date Trazodone HCl ND 83666062171 50 MG Orally Active 1 tablet Once a day at bedtime as needed Furosemide ND 77935378224 80 MG Orally Active 1 tablet Once a day Potassium NDC 91725-59463 Active not defined Levothyroxine [facility] 69752562686 88 MCG Orally Active 1 tablet Sodium Once a day on an empty stomach in the morning Furosemide [facility] 14508619315 40 MG Orally Active 1 tablet Once a day Dilantin [facility] 99975831360 100 MG Orally Active 5 capsule Cymbalta [facility] 37284495327 60 MG Orally Active 1 capsule Once a day Ambien [facility] 68955410286 10 MG Orally Active 1 tablet Once a day at bedtime as needed Metoprolol [facility] 29344033766 25 MG Orally Jun 23, Active 1 tablet Succinate ER Once a day 2019 Metoprolol [facility] 55398425320 25 MG Orally Inactive 1 tablet Tartrate Twice a day with food Xanax [facility] 06436647039 0.5 MG Orally May 19, Active 1 tablet Twice a day 2018 Advair Diskus [facility] 75448972208 250-50 MCG/DOSE Active 1 puff Inhalation Twice a day ProAir HFA [facility] 33354859475 108 (90 Base) Active 1 puff as MCG/ACT needed Inhalation every 6 hours Phenytoin [facility] [address]-19 Active not defined Cozaar [facility] 95205792445 100 MG Orally Active 1 tablet Once a day Pravastatin [facility] 65103603907 20 MG Orally Active 1 tablet Sodium Once a day Omeprazole [facility] 50315217322 40 MG Orally Active 1 capsule Once a day Dilaudid [facility] 47284860984 4 MG Orally Active 1 tablet every 4 hrs as needed Amlodipine [facility] 55174414310 10 MG Orally Inactive 1 tablet Besylate Once a day Results No Known Results Summary Purpose eClinicalWorks Submission
--- OUTSIDE RECORDS SUMMARY | 2019-08-03 06:51 | XMS REPORT ---
:1960 Author [facility] Address [facility] [address] [place] [id number] Care Team Providers Name Role Phone CALLUM [...] Reference Range Comments BARBITURATE URINE (BEAKER) (test acgh=443) Negative Negative BENZODIAZEPINE SCREEN URINE (BEAKER) (test yhgc=308) Negative Negative COCAINE (METAB.) SCREEN (BEAKER) (test tjah=4683) Negative Negative METHADONE SCREEN (BEAKER) (test qxsn=2357) Negative Negative OPIATE SCREEN URINE (BEAKER) (test rxdv=376) Negative Negative CANNABINOID SCREEN URINE (BEAKER) (test ofxm=305) Negative Negative AMPH/METHAMPH SCREEN (BEAKER) (test moar=7947) Negative Negative PHENCYCLIDINE SCREEN URINE (BEAKER) (test pfjg=747) Negative Negative OXYCODONE SCREEN URINE (BEAKER) (test fhma=6804) Negative Negative DRUG CUTOFF CONC.Cocaine 300 ng/mL Cannabinoid 50 ng/mL Benzodiazepine 200 ng/mLBarbiturate 200 ng/ mLPhencyclidine 25 ng/mLOpiate 300 ng/mLMethadone 300 ng/mLAmphetamine/ 1000 ng/mL MethamphetamineOxycodone 300 ng/mLURINALYSIS W/ [id number] 05:47:00 Test Item Value Reference Range Comments COLOR (BEAKER) (test pbuc=795) Light Yellow CLARITY (BEAKER) (test ygmc=674) Clear SPECIFIC GRAVITY UA (BEAKER) (test mdul=780) 1.001 1.001-1.035 PH UA (BEAKER) (test trdh=777) 7.0 5.0-8.0 PROTEIN UA (BEAKER) (test sllu=664) Negative Negative GLUCOSE UA (BEAKER) (test dkzk=966) Negative Negative KETONES UA (BEAKER) (test gxwj=049) Negative Negative BILIRUBIN UA (BEAKER) (test pszu=255) Negative Negative BLOOD UA (BEAKER) (test kwnl=261) Negative Negative NITRITE UA (BEAKER) (test qtkl=151) Negative Negative LEUKOCYTE ESTERASE UA (BEAKER) (test ubxj=353) Large Negative UROBILINOGEN UA (BEAKER) (test mrld=549) 0.2 mg/dL 0.2-1.0 RBC UA (BEAKER) (test ffvk=267) 0 /HPF WBC UA (BEAKER) (test iuut=187) 28 /HPF BACTERIA (BEAKER) (test xtic=660) Rare SQUAMOUS EPITHELIAL (BEAKER) (test gyea=514) < /HPF SOURCE(BEAKER) (test kvep=4526) Urine, Voided BASIC METABOLIC [id number] 02:25:00 Test Item Value Reference Range Comments SODIUM (BEAKER) (test 139 meq/L 136-145 owav=423) POTASSIUM (BEAKER) (test 3.9 meq/L 3.5-5.1 nnck=645) CHLORIDE (BEAKER) (test 104 meq/L 98-107 lupn=371) CO2 (BEAKER) (test 26 meq/L 22-29 jcco=080) BLOOD UREA NITROGEN 11 mg/dL 7-21 (BEAKER) (test rvdj=752) CREATININE (BEAKER) (test 0.78 mg/dL 0.57-1.25 xdox=080) GLUCOSE RANDOM (BEAKER) 82 mg/dL 70-105 (test jsig=412) CALCIUM (BEAKER) (test 8.2 mg/dL 8.4-10.2 lsov=805) EGFR (BEAKER) (test 76 mL/min/1.73 sq m ESTIMATED GFR IS NOT koic=8543) ACCURATE CREATININE CLEARANCE IN PREDICTING GLOMERULAR FILTRATION RATE. ESTIMATED GFR IS NOT APPLICABLE FOR DIALYSIS PATIENTS. CBC W/PLT COUNT & AUTO [id number] 02:17:00 Test Item Value Reference Range Comments WHITE BLOOD CELL COUNT (BEAKER) (test zvgm=874) 4.9 K/ L 4.0-10.0 RED BLOOD CELL COUNT (BEAKER) (test wtkp=567) 4.00 M/ L 4.00-5.00 HEMOGLOBIN (BEAKER) (test ydpk=013) 13.2 GM/DL 12.0-15.0 HEMATOCRIT (BEAKER) (test mgui=386) 38.7 % 36.0-45.0 MEAN CORPUSCULAR VOLUME (BEAKER) (test llzu=622) 96.7 fL 82.0-99.0 MEAN CORPUSCULAR HEMOGLOBIN (BEAKER) (test 32.9 pg 27.0-33.0 faom=616) MEAN CORPUSCULAR HEMOGLOBIN CONC (BEAKER) (test 34.0 GM/DL 32.0-36.0 gdsh=062) RED CELL DISTRIBUTION WIDTH (BEAKER) (test 13.3 % 10.3-14.2 aopx=797) PLATELET COUNT (BEAKER) (test shjb=627) 216 K/CU MM 150-430 MEAN PLATELET VOLUME (BEAKER) (test vffl=852) 6.9 fL 6.5-10.5 NUCLEATED RED BLOOD CELLS (BEAKER) (test 0 /100 WBC 0-0 axne=683) NEUTROPHILS RELATIVE PERCENT (BEAKER) (test 50 % bgfh=995) LYMPHOCYTES RELATIVE PERCENT (BEAKER) (test 38 % owlg=177) MONOCYTES RELATIVE PERCENT (BEAKER) (test 7 % kyvz=687) EOSINOPHILS RELATIVE PERCENT (BEAKER) (test 4 % hlca=022) BASOPHILS RELATIVE PERCENT (BEAKER) (test 1 % gijr=242) NEUTROPHILS ABSOLUTE COUNT (BEAKER) (test 2.44 K/ L 1.80-8.00 dask=402) LYMPHOCYTES ABSOLUTE COUNT (BEAKER) (test 1.85 K/ L 1.48-4.50 oiyb=233) MONOCYTES ABSOLUTE COUNT (BEAKER) (test 0.37 K/ L 0.00-1.30 jnms=115) EOSINOPHILS ABSOLUTE COUNT (BEAKER) (test 0.18 K/ L 0.00-0.50 cehy=875) BASOPHILS ABSOLUTE COUNT (BEAKER) (test 0.04 K/ L 0.00-0.20 psls=273) [id number] 20:56:00 Test Item Value Reference Range Comments ETHANOL (BEAKER) (test rhoa=031) 259 mg/dL <=10 BASIC METABOLIC [id number] 20:55:00 Test Item Value Reference Range Comments SODIUM (BEAKER) (test 136 meq/L 136-145 ppui=927) POTASSIUM (BEAKER) (test 3.3 meq/L 3.5-5.1 aggj=177) CHLORIDE (BEAKER) (test 100 meq/L 98-107 jmyi=776) CO2 (BEAKER) (test 24 meq/L 22-29 izxf=041) BLOOD UREA NITROGEN 10 mg/dL 7-21 (BEAKER) (test ybud=020) CREATININE (BEAKER) (test 0.74 mg/dL 0.57-1.25 nfxb=215) GLUCOSE RANDOM (BEAKER) 77 mg/dL 70-105 (test wehi=028) CALCIUM (BEAKER) (test 8.3 mg/dL 8.4-10.2 nlfz=790) EGFR (BEAKER) (test mL/min/1.73 sq m INSUFFICIENT CLINICAL DATA rpch=6288) TO CALCULATE ESTIMATED GFR. HEPATIC FUNCTION [id number] 20:54:00 Test Item Value Reference Range Comments TOTAL PROTEIN (BEAKER) (test zdck=533) 7.0 gm/dL 6.0-8.3 ALBUMIN (BEAKER) (test lhqo=4230) 4.0 g/dL 3.5-5.0 BILIRUBIN TOTAL (BEAKER) (test lfps=711) 0.2 mg/dL 0.2-1.2 BILIRUBIN DIRECT (BEAKER) (test vaxd=110) 0.1 mg/dL 0.1-0.5 ALKALINE PHOSPHATASE (BEAKER) (test euii=741) 89 U/L 40-150 AST (SGOT) (BEAKER) (test uufa=693) 22 U/L 5-34 ALT (SGPT) (BEAKER) (test bpxj=581) 22 U/L 6-55 CBC W/PLT COUNT & AUTO [id number] 20:36:00 Test Item Value Reference Range Comments WHITE BLOOD CELL COUNT (BEAKER) (test qogi=798) 7.5 K/ L 4.0-10.0 RED BLOOD CELL COUNT (BEAKER) (test mgxm=561) 3.99 M/ L 4.00-5.00 HEMOGLOBIN (BEAKER) (test qggg=960) 13.8 GM/DL 12.0-15.0 HEMATOCRIT (BEAKER) (test dcpb=826) 37.9 % 36.0-45.0 MEAN CORPUSCULAR VOLUME (BEAKER) (test zfcz=796) 94.9 fL 82.0-99.0 MEAN CORPUSCULAR HEMOGLOBIN (BEAKER) (test 34.7 pg 27.0-33.0 sgvz=929) MEAN CORPUSCULAR HEMOGLOBIN CONC (BEAKER) (test 36.5 GM/DL 32.0-36.0 lymb=532) RED CELL DISTRIBUTION WIDTH (BEAKER) (test 12.4 % 10.3-14.2 bdzm=694) PLATELET COUNT (BEAKER) (test qjdw=256) 218 K/CU MM 150-430 MEAN PLATELET VOLUME (BEAKER) (test sgzw=310) 6.5 fL 6.5-10.5 NUCLEATED RED BLOOD CELLS (BEAKER) (test 0 /100 WBC 0-0 dcoa=719) NEUTROPHILS RELATIVE PERCENT (BEAKER) (test 50 % xgay=351) LYMPHOCYTES RELATIVE PERCENT (BEAKER) (test 39 % tfls=011) MONOCYTES RELATIVE PERCENT (BEAKER) (test 8 % vfjc=673) EOSINOPHILS RELATIVE PERCENT (BEAKER) (test 3 % soav=039) BASOPHILS RELATIVE PERCENT (BEAKER) (test 1 % sver=001) NEUTROPHILS ABSOLUTE COUNT (BEAKER) (test 3.71 K/ L 1.80-8.00 nbaz=811) LYMPHOCYTES ABSOLUTE COUNT (BEAKER) (test 2.90 K/ L 1.48-4.50 xdfl=947) MONOCYTES ABSOLUTE COUNT (BEAKER) (test 0.63 K/ L 0.00-1.30 kufh=105) EOSINOPHILS ABSOLUTE COUNT (BEAKER) (test 0.20 K/ L 0.00-0.50 jsmd=917) BASOPHILS ABSOLUTE COUNT (BEAKER) (test 0.05 K/ L 0.00-0.20 yshf=344) 0.00
--- OUTSIDE RECORDS SUMMARY | 2019-08-03 06:51 | XMS REPORT ---
:1960 Author Organization [employer] Care Team Providers Name Role Phone Salomon, Na Provider Role Unavailable Allergies No Known Allergies Problems Problem Type Condition Code Onset Dates Condition Status Problem Gastroesophageal reflux disease K21.9 Active without esophagitis Problem Localized swelling, mass and lump, R22.1 Active neck Problem Nicotine dependence F17.200 Active Problem Epigastric pain R10.13 Active Problem Urinary frequency R35.0 Active Problem Hypotension 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 Active Problem Abnormal weight loss R63.4 Active Problem Localized osteoporosis, unspecified M81.6 Active pathological fracture presence Problem Primary insomnia F51.01 Active Problem Cigarette nicotine dependence F17.210 Active without complication Problem Vomiting without nausea, R11.11 Active intractability of vomiting not specified, unspecified vomiting type Problem Hypothyroidism E03.9 Active Problem Allergic rhinitis J30.9 Active Problem Vitamin D deficiency E55.9 Active Problem Benign essential HTN I10 Active Problem Hypotension I95.9 Active Problem Depression with anxiety F41.8 Active Problem Hyperlipidemia E78.5 Active Problem Seizures R56.9 Active Problem Constipation K59.00 Active Problem Mild obesity E66.9 Active Medications Medication Code System Code Instructions Start Date End Date Status Dosage Xanax [facility] [id number] 0.5 MG Orally May 19, Active 1 tablet Twice a day 2018 Results No Known Results Summary Purpose eClinicalWorks Submission
--- OUTSIDE RECORDS SUMMARY | 2019-08-03 06:51 | XMS REPORT ---
:1960 Author Organization eClinicalWorks Care Team Providers Name Role Phone Salomon, Na Provider Role Unavailable Allergies No Known Allergies Problems Problem Type Condition Code Onset Dates Condition Status Assessment Hyperlipidemia E78.5 Active Assessment Hypothyroidism E03.9 Active Problem Seizures R56.9 Active Assessment Depression with anxiety F41.8 Active Problem Mild obesity E66.9 Active Assessment Edema, unspecified type R60.9 Active Problem Gastroesophageal reflux disease K21.9 Active without esophagitis Problem Localized swelling, mass and lump, R22.1 Active neck Problem Nicotine dependence F17.200 Active Problem Epigastric pain R10.13 Active Problem Hypotension 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 Active Problem Urinary frequency R35.0 Active Problem Abnormal weight loss R63.4 Active Assessment Benign essential HTN I10 Active Problem Localized osteoporosis, unspecified M81.6 Active [...] Medications Medication Code Code Instructions Start End Date Status Dosage System Date Furosemide ND 67567571820 40 MG Orally Active 1 tablet Once a day Metoprolol ND 09029628902 25 MG Orally Active 1 tablet Tartrate Twice a day with food Cymbalta ND 24796880405 60 MG Orally Active 1 capsule Once a day Pravastatin ND 78398080118 20 MG Orally Active 1 tablet Sodium Once a day Cozaar [facility] [place] 2[place] 39159509628 100 MG Orally Active 1 tablet Once a day Amlodipine [facility] [place]NOTE 2] 31982340539 10 MG Orally Active 1 tablet Besylate Once a day Amitiza [facility] [place] 2] 77565443676 24 MCG Orally Alina Active 1 capsule Twice a day 2019 with food and water Levothyroxine [facility] [place]NOTE 2] 08605246001 88 MCG Orally Active 1 tablet Sodium Once a day on an empty stomach in the morning Results No Known Results Summary Purpose eClinicalWorks Submission
[2019-08-03 07:28] LABS: Absolute Lymphocytes (CBC) 1.1 K/uL (0.7-4.9); Basophils % 0.8 % (0-1.3); Hematocrit 39.7 % (36.0-45.0); Lymphocytes % 22.7 % (15.3-44.8); MPV 7.9 fL (7.6-11.3); RBC Red Blood Cell Count 4.12 M/uL (3.86-4.86)
--- NOTE | 2019-08-03 07:35 | RAD REPORT ---
EXAM DESCRIPTION: CT - CTHCSPWOC - 08/03/2019 7:25 am CLINICAL HISTORY: Trauma, head and neck injury. intoxicated, fall COMPARISON: No comparisonsSOFT TISSUE NECK W CONTRAST dated 07/19/2007 TECHNIQUE: Axial 5 mm thick images of the head were obtained. Axial 2 mm thick images of the cervical spine were obtained with sagittal and coronal reconstruction images generated and reviewed. All CT scans are performed using dose optimization technique as appropriate and may include automated exposure control or mA/KV adjustment according to patient size. FINDINGS: CT HEAD WITHOUT CONTRAST: No acute hemorrhage, hydrocephalus or extra-axial collection is identified.Mild brain atrophyNo areas of brain edema or midline shift. The paranasal sinuses and mastoids are essentially clear.The calvarium is intact. CT CERVICAL SPINE WITHOUT CONTRAST: No fracture or subluxation.Mild lower cervical spondylosis.No prevertebral soft tissues swelling is i dentified. Mild carotid atherosclerosis. IMPRESSION: No acute intracranial or cervical spine findings.
[2019-08-03 07:38] LABS: Protime INR 0.89
[2019-08-03 08:43] LABS: Barbiturates NEGATIVE (NEGATIVE); Benzodiazepines NEGATIVE (NEGATIVE); Cocaine NEGATIVE (NEGATIVE); METHAMPHETAM NEGATIVE (NEGATIVE); Methadone NEGATIVE (NEGATIVE); Opiates NEGATIVE (NEGATIVE); Phencyclidine NEGATIVE (NEGATIVE); THC Cannibis NEGATIVE (NEGATIVE)
[2019-08-03 09:16] LABS: ALT/SGPT 37 U/L (12-78); AST/SGOT 32 U/L (15-37); BUN Blood Urea Nitrogen 17 mg/dL (7-18); Bicarbonate 29 mmol/L (21-32); Glucose Level 82 mg/dL (74-106); Potassium 3.5 mmol/L (3.5-5.1); Sodium Level 146 mmol/L (136-145)
[2019-08-03 09:17] LABS: Albumin 3.2 g/dL (3.4-5.0); Alkaline Phosphatase 76 U/L (45-117); Bilirubin Direct 0.1 mg/dL (0-0.2); Bilirubin Total 0.2 mg/dL (0.2-1.0); Protein, Total 6.8 g/dL (6.4-8.2)
[2019-08-03] MEDS ORDERED: NA CHLORIDE 0.9% 1,000 ML ONE (09:27)
[2019-08-03] MEDS ORDERED: FOLIC ACID 1 MG, MULTIVITAMINS INJ 10 ML, THIAMINE HCL 100 MG in NA CHLORIDE 0.9% 1,000 ML IV ONE (10:00)
--- NOTE | 2019-08-03 10:06 | RAD REPORT ---
EXAM DESCRIPTION: CT - Stone Protocol - 08/03/2019 9:58 am CLINICAL HISTORY: Flank pain. Acute renal failure COMPARISON: Abdomen Pelvis W Contrast dated 03/31/2017; Abdomen 1 View (KUB) dated 08/03/2019; Head C Spine Mpr Wo Con dated 08/03/2019 TECHNIQUE: Axial images were obtained without oral or IV contrast. Lack of contrast limits solid org an and vascular assessment. The [id number] spans the entirety of the system partially obscuring uppermost abdomen and lung bases. Coronal reformatted images were obtained and reviewed. All CT scans are performed using dose optimization technique as appropriate and may include automated exposure control or mA/KV adjustment according to patient size. FINDINGS: Linear subsegmental atelectasis is present in both lung bases. Imaged portions of the liver and spleen show no suspicious findings on non-contrast imaging. The panc reas and adrenal glands are normal. No pathologic lymphadenopathy in the abdomen or pelvis. No urinary tract stones or obstructive uropathy. No bowel obstruction, free air, free fluid or abscess. Appendectomy.Quite severe fecal retention in t he colon. Atherosclerosis present of the aorta and iliac vessels. Stimulator device is present posteriorly. Old compression deformity is suspected affecting L1. IMPRESSION: No urinary tract stones or obstructive uropathy. Severe fecal retention.
--- NOTE | 2019-08-03 10:36 | EDPHYS ---
Physician Documentation [facility] Name: Deann Age: 58 yrs Sex: Female : 1960 Arrival Date: 08/03/2019 Time: 06:50 Bed 3 Private MD: ED Physician Shakeel Barton HPI: 08/02 15:30 This 58 yrs old Female presents to ER via EMS with complaints of Falls. pm1 15:30 Details of fall: The patient fell from an upright position, while standing. Onset: The pm1 symptoms/episode began/occurred yesterday. Associated injuries: The patient sustained no obvious injury, Patient denies any injury from the fall. No headache, neck pain, LOC. Reports rectal pressure from constipation and the urge to defecate . The patient has experienced similar episodes in the past, reports that she typically experiences constipation until her pain medication run out and she is awaiting refills. EMS was called out for a lift assist. On arrival EMS reports that she was standing, drunk and unsteady on her feet. Her recently denied and she has been drinking since yesterday. They found two bottles of empty [place] harlan at the home. She is also complaining of constipation for the past 7 days. Takes oxycodone for chronic back pain. Historical: - Allergies: 07:11 No Known Allergies; mg2 - Home Meds: 07:11 blood pressure med [Active]; cholesterol med [Active]; Multi Vitamin Oral [Active]; mg2 seizure pill [Active]; vit d [Active]; - PMHx: 07:11 chronic back pain; Hyperlipidemia; Hypertension; Seizures; mg2 - PSHx: 07:11 Appendectomy; mg2 - Immunization history:: Flu vaccine status is unknown. - Social history:: Smoking status: unknown Patient uses alcohol, patient/guardian reports recent binge of alcohol consumption. ROS: 07:59 Constitutional: Negative for fever, chills, and weight loss, Neck: Negative for injury, pm1 pain, and swelling, Cardiovascular: Negative for chest pain, palpitations, and edema, Respiratory: Negative for shortness of breath, cough, wheezing, and pleuritic chest pain. 07:59 Back: Negative for injury and pain, MS/Extremity: Negative for injury and deformity, Skin: Negative for injury, rash, and discoloration, Neuro: Negative for headache, weakness, numbness, tingling, and seizure. 07:59 Abdomen/GI: Positive for constipation, rectal pain, trace about of blood with attempting to have a bowel movement the past week, Negative for abdominal pain, nausea, vomiting, diarrhea. 07:59 All other systems are negative. Exam: 07:59 Constitutional: This is a well developed, well nourished patient who is awake, alert, pm1 and in no acute distress. Head/Face: Normocephalic, atraumatic. Neck: Trachea midline, no thyromegaly or masses palpated, and no cervical lymphadenopathy. Supple, full range of motion without nuchal rigidity, or vertebral point tenderness. No Meningismus. Chest/axilla: Normal chest wall appearance and motion. Nontender with no deformity. No lesions are appreciated. Cardiovascular: Regular rate and rhythm with a normal S1 and S2. No gallops, murmurs, or rubs. No pulse deficits. Respiratory: Lungs have equal breath sounds bilaterally, clear to auscultation and percussion. No rales, rhonchi or wheezes noted. No increased work of breathing, no retractions or nasal flaring. Abdomen/GI: Soft, non-tender, with normal bowel sounds. No distension or tympany. No guarding or rebound. No evidence of tenderness throughout. Back: No spinal tenderness. No costovertebral tenderness. Full range of motion. Skin: Warm, dry with normal turgor. Normal color with no rashes, no lesions, and no evidence of cellulitis. MS/ Extremity: Pulses equal, no cyanosis. Neurovascular intact. Full, normal range of motion. 07:59 Neuro: Orientation: is normal, Mentation: is normal, Motor: moves all fours. Vital Signs: 06:58 BP 128 / 78; Pulse 66; Resp 18; Temp 98.1; Pulse Ox 95% on R/A; mg2 08:30 BP 123 / 79; Pulse 58; Resp 18 S; Pulse Ox 96% on R/A; aa5 09:00 BP 143 / 87; Pulse 57; Resp 18; Pulse Ox 99% on R/A; em MDM: 06:58 Patient medically screened. pm1 10:16 ED course: Informed the patient that there was a lab support tech reporting error of her pm1 BMP. Her labs showed acute renal failure with hyperglycemia. Due to her complaint of opioid induced constipation, I ordered additional labs and a CT to evaluate for metabolic acidosis and obstructive uropathy. I consulted with Dr. Rivers and reviewed the labs with him. We were planning for an ICU admission after his requested additional workup was completed. After I saw that the lab results were changed without informing the ER about the error, the patient already had the CT scan performed and additional labs resulted. We contacted the lab and found about the error. I was able to cancel the ABG. Explained the lab reporting mistake and the resulting tests that followed and informed her that those tests were not needed if the ER was informed about the mistake in a timely fashion. Patient was happy to hear that she was not in renal failure. 10:32 Data reviewed: vital signs. Data interpreted: Pulse oximetry: on room air is 96 %. pm1 Interpretation: normal. 10:33 Refusal of service: The patient/guardian displays adequate decision making capability pm1 and despite a detailed discussion of alternatives, benefits, risks, and consequences refuses: IV fluids and banana bag. Patient wants to go home now. 08/02 06:58 Order name: Acetaminophen; Complete Time: 09:40 pm1 08/02 06:58 Order name: Basic Metabolic Panel; Complete Time: 09:40 pm1 08/02 06:58 Order name: CBC with Diff; Complete Time: 07:36 pm1 08/02 06:58 Order name: ETOH Level; Complete Time: 07:54 pm1 08/02 06:58 Order name: Hepatic Function; Complete Time: 09:40 pm1 08/02 06:58 Order name: PT-INR; Complete Time: 07:41 pm1 08/02 06:58 Order name: Ptt, Activated; Complete Time: 07:41 pm1 08/02 06:58 Order name: Salicylate; Complete Time: 07:51 pm1 08/02 06:58 Order name: Urine Drug Screen; Complete Time: 08:55 pm1 08/02 08:29 Order name: Urine Dipstick--Ancillary (enter results) ms 08/02 08:58 Order name: CPK; Complete Time: 09:40 pm1 08/02 09:03 Order name: Lipase; Complete Time: 09:40 pm1 08/02 09:13 Order name: Acetone, Serum; Complete Time: 10:06 pm1 08/02 06:58 Order name: EKG; Complete Time: 06:59 pm1 08/02 06:58 Order name: EKG - Nurse/Tech; Complete Time: 07:43 pm1 08/02 06:58 Order name: IV Saline Lock; Complete Time: 07:40 pm1 08/02 06:58 Order name: Labs collected and sent; Complete Time: 07:40 pm1 08/02 06:58 Order name: Urine Dipstick-Ancillary (obtain specimen); Complete Time: 08:35 pm1 08/02 07:04 Order name: CT Head C Spine; Complete Time: 07:38 pm1 08/02 07:04 Order name: Abdomen 1 View (KUB) XRAY pm1 08/02 08:35 Order name: Straight Cath: VO received at 0810; Complete Time: 08:36 aa5 08/02 09:03 Order name: CT Stone Protocol; Complete Time: 10:11 pm1 08/02 09:03 Order name: Azul; Complete Time: 09:47 pm1 08/02 09:13 Order name: Lactate; Complete Time: 10:11 pm1 08/02 09:13 Order name: Procalcitonin pm1 Administered Medications: 09:16 Drug: NS 0.9% 1000 ml Route: IV; Rate: 1000 ml; Site: right antecubital; em 10:30 Follow up: IV Intake: 500ml ; Pt refused remaining fluids aa5 09:40 Drug: Banana Bag - (NS 0.9% 1000 ml, foLIC Acid 1 mg, Thiamine 100 mg, Multivitamin 1 aa5 amp) Route: IV; Rate: calculated rate; Site: right antecubital; 10:30 Follow up: Pt refused remaining fluids. aa5 Disposition: 08/03 07:59 Co-signature as Attending Physician, Shakeel Barton MD I agree with the assessment and tw4 plan of care. Disposition: 08/03/19 10:35 Discharged to Home. Impression: Alcohol abuse, Constipation, Fall on same level from slipping, tripping and stumbling. - Condition is Stable. - Discharge Instructions: Finding Treatment for Addiction, Constipation, Adult, Fall Prevention in the Home, Alcohol Abuse and Nutrition. - Prescriptions for Miralax 17 gram/dose Oral - take 1 packet by ORAL route once daily As needed dilute powder in 8 ounces of water or juice; 7 packet. Lactulose 10 gram/15 mL Oral Solution - take 30 milliliter by ORAL route once daily; 300 milliliter. - Medication Reconciliation Form, Thank You Letter, Antibiotic Education, Prescription Opioid Use form. - Follow up: Emergency Department; When: As needed; Reason: Worsening of condition. Follow up: Private Physician; When: 2 - 3 days; Reason: Recheck today's complaints, Continuance of care, Re-evaluation by your physician. - Problem is new. - Symptoms have improved. Signatures: Dispatcher [employer] [facility] Ayan Begum jb1 Mert Valderrama, RN RN em Yael Hankins RN RN aa5 Rangel Mack, PIG FARM MANAGER PIG FARM MANAGER pm1 Shakeel Barton MD MD tw4 Oh Aburto RN RN mg2 Corrections: (The following items were deleted from the chart) 08/02 10:10 09:03 Arterial Blood Gas+RC.LAB.BRZ ordered. [facility] 11:14 10:35 08/03/2019 10:35 Discharged to Home. Impression: Alcohol abuse; Constipation; eulogio1 Fall on same level from slipping, tripping and stumbling. Condition is Stable. Forms are Medication Reconciliation Form, Thank You Letter, Antibiotic Education, Prescription Opioid Use. Follow up: Emergency Department; When: As needed; Reason: Worsening of condition. Follow up: Private Physician; When: 2 - 3 days; Reason: Recheck today's complaints, Continuance of care, Re-evaluation by your physician. Problem is new. Symptoms have improved. pm1
--- NOTE | 2019-08-03 10:36 | ER ---
Nurse's Notes [facility] Name: Deann Bhatia Age: 58 yrs Sex: Female : 1960 Arrival Date: 08/03/2019 Time: 06:50 Bed 3 Private MD: Diagnosis: Alcohol abuse;Constipation;Fall on same level from slipping, tripping and stumbling Presentation: 08/02 06:58 Chief complaint: EMS states: patient has been drinking since 1 pm yesterday. she has mg2 been depressed because her just recently. she is complaining of rectal pain, constipation for 7 days, she gave herself 2 fleet enemas and she said she has rectal bleeding afterwards,. she also said she had multiple falls at home. Coronavirus screen: The patient has NOT traveled to [place] in the past 14 days. Proceed with normal triage procedures. Ebola Screen: No symptoms or risks identified at this time. Initial Sepsis Screen: Does the patient meet any 2 criteria? No. Patient's initial sepsis screen is negative. Does the patient have a suspected source of infection? No. Patient's initial sepsis screen is negative. Risk Assessment: Do you want to hurt yourself or someone else? Patient reports no desire to harm self or others. 06:58 Method Of Arrival: EMS: [facility] mg2 06:58 Acuity: MARILYNN 3 mg2 06:58 Care prior to arrival: IV initiated. 22 GA, antecubital area. mg2 Historical: - Allergies: 07:11 No Known Allergies; mg2 - Home Meds: 07:11 blood pressure med [Active]; cholesterol med [Active]; Multi Vitamin Oral [Active]; mg2 seizure pill [Active]; vit d [Active]; - PMHx: 07:11 chronic back pain; Hyperlipidemia; Hypertension; Seizures; mg2 - PSHx: 07:11 Appendectomy; mg2 - Immunization history:: Flu vaccine status is unknown. - Social history:: Smoking status: unknown Patient uses alcohol, patient/guardian reports recent binge of alcohol consumption. Screenin:13 Abuse screen: Denies threats or abuse. Denies injuries from another. Nutritional mg2 screening: No deficits noted. Tuberculosis screening: No symptoms or risk factors identified. Fall Risk Fall in past 12 months (25 points). IV access (20 points). Mental Status- Overestimates/Forgets Limitations (15 pts.). Assessment: 07:12 Pain: Complains of pain in rectal area. Neuro: Level of Consciousness is awake, alert, mg2 obeys commands, Oriented to person, place. Cardiovascular: Capillary refill < 3 seconds Patient's skin is warm and dry. Respiratory: Airway is patent Respiratory effort is even, unlabored, Respiratory pattern is regular, symmetrical. GI: Reports constipation, rectal bleeding. : No signs and/or symptoms were reported regarding the genitourinary system. EENT: No signs and/or symptoms were reported regarding the EENT system. Derm: Skin is intact, is healthy with good turgor, Skin is pink, warm \\T\\ dry. normal. Musculoskeletal: Circulation, motion, and sensation intact. Capillary refill < 3 seconds. 07:59 Reassessment: Pt back from radiology . aa5 08:00 General: Appears comfortable, Behavior is calm, cooperative, Pt states "I drank a aa5 little bit of alcohol last night because I've been depressed". Pt denies suicidal ideations. . Pain: Complains of pain in rectum and back Pain does not radiate. Pain currently is 5 out of 10 on a pain scale. Quality of pain is described as aching, sharp, Pain began 2-3 days ago. Is continuous. Neuro: Level of Consciousness is awake, alert, obeys commands, Oriented to person, place, time, situation, Candy Rolling Machine Operator are equal bilaterally Moves all extremities. Speech is normal, Facial symmetry appears normal, Pupils are PERRLA. Cardiovascular: Heart tones S1 S2 present Rhythm is regular. Respiratory: Airway is patent Respiratory effort is even, unlabored, Respiratory pattern is regular, symmetrical. GI: Abdomen is flat, non-distended, Last BM x 1 week ago Bowel sounds present X 4 quads. Abd is soft and non tender X 4 quads. Reports constipation, rectal bleeding post enema attempt at home Patient currently denies nausea, vomiting. : No signs and/or symptoms were reported regarding the genitourinary system. EENT: No signs and/or symptoms were reported regarding the EENT system. Derm: Skin is pink, warm \\T\\ dry. Musculoskeletal: Range of motion: intact in all extremities. 08:42 Reassessment: Pt resting in bed with eyes closed, respirations even and unlabored, skin aa5 is pink/warm/dry . 09:20 Reassessment: Pt got up out of bed and states she was going to go outside and smoke. Pt aa5 notified this is a smoke free campus and it is not recommended for her to smoke at this time, pt verbalized understanding and walked out of ER, pt stated she is coming back after she smokes a cigarette. . 09:38 Reassessment: Add-on labs drawn and sent to lab by communications engineering technician . aa5 09:38 Reassessment: Patient is alert, oriented x 3, equal unlabored respirations, skin aa5 warm/dry/pink. 10:10 Reassessment: BILLPOSTER speaking to patient about confusion with lab and wrong kidney function aa5 resulted earlier, BILLPOSTER explaining to pt that no need for admission is needed and about correct results. Pt verbalizes understanding and agrees with plan of care to d/c home. . 10:10 Reassessment: Patient is alert, oriented x 3, equal unlabored respirations, skin aa5 warm/dry/pink. 10:30 Reassessment: Patient appears in no apparent distress at this time. pt refuses fluids, em does not want to wait 2 hours, states, "want to go home now and will drink lots of water at home", provider notified. Vital Signs: 06:58 BP 128 / 78; Pulse 66; Resp 18; Temp 98.1; Pulse Ox 95% on R/A; mg2 08:30 BP 123 / 79; Pulse 58; Resp 18 S; Pulse Ox 96% on R/A; aa5 09:00 BP 143 / 87; Pulse 57; Resp 18; Pulse Ox 99% on R/A; em ED Course: 06:50 Patient arrived in ED. bb 06:54 Rangel Mack, JOHNSON is PHCP. pm1 06:54 Shakeel Barton MD is Attending Physician. pm1 06:58 Oh Aburto, ELIANE is Primary Nurse. mg2 07:10 Triage completed. mg2 07:11 Arm band placed on. mg2 07:14 Patient has correct armband on for positive identification. mg2 07:14 Served as a customer support agent during rectal exam. Maintain EMS IV. Dressing intact. Good blood mg2 return noted. Site clean \\T\\ dry. Gauge \\T\\ site: 22 \\T\\ RFA. 07:15 Report received from ELIANE Casiano. aa5 07:26 CT Head C Spine In Process Unspecified. EDMS 07:30 Abdomen 1 View (KUB) XRAY In Process Unspecified. EDMS 08:20 Straight cath inserted, using sterile technique, 16 Fr. Specimen obtained. Patient aa5 tolerated well. 09:41 Initial lab(s) drawn, by me, sent to lab. jb1 09:45 Azul cath inserted, using sterile technique, 16 Fr., by me, balloon inflated, to aa5 gravity drainage, Patient tolerated well. 09:58 CT Stone Protocol In Process Unspecified. EDMS 10:20 Azul cath removed intact, balloon deflated. jb1 11:00 IV discontinued, intact, bleeding controlled, No redness/swelling at site. Pressure aa5 dressing applied. Administered Medications: 09:16 Drug: NS 0.9% 1000 ml Route: IV; Rate: 1000 ml; Site: right antecubital; em 10:30 Follow up: IV Intake: 500ml ; Pt refused remaining fluids aa5 09:40 Drug: Banana Bag - (NS 0.9% 1000 ml, foLIC Acid 1 mg, Thiamine 100 mg, Multivitamin 1 aa5 amp) Route: IV; Rate: calculated rate; Site: right antecubital; 10:30 Follow up: Pt refused remaining fluids. aa5 Intake: 10:30 IV: 500ml; Total: 500ml. aa5 Outcome: 10:35 Discharge ordered by MD. pm1 11:00 Discharged to home ambulatory, with friend. em 11:00 Condition: stable 11:00 Discharge instructions given to patient, Instructed on discharge instructions, follow up and referral plans. medication usage, Demonstrated understanding of instructions, follow-up care, medications, Prescriptions given X 1. 11:14 Patient left the ED. jb1 Signatures: Dispatcher [employer] [facility] Ayan Begum jb1 Mert Valderrama RN RN em Georgia Britt RN RN bb Yael Hankins RN RN aa5 Rangel Mack, JOHNSON BILLPOSTER pm1 Oh Aburto RN RN mg2 Corrections: (The following items were deleted from the chart) 07:12 06:58 Care prior to arrival: IV initiated. 20 GA, antecubital area, mg2 mg2
[2019-08-03 11:27] VITALS: TEMP 98.1
[2019-08-03 11:30] VITALS: BP 143/87; O2SAT 99
--- NOTE | 2019-08-03 12:09 | RAD REPORT ---
EXAM DESCRIPTION: RAD - Abdomen 1 View (KUB) - 08/03/2019 7:32 am CLINICAL HISTORY: CONSTIPATION Pain COMPARISON: No comparisons FINDINGS: The bowel gas pattern is non-obstructive. No evidence of free air or pneumatosis. There is a quite large volume of stool in the colon. Mild degenerative dextroscoliosis of the lumbar spine. Stimulator wiring noted. No acute fracture seen. IMPRESSION: Significant fecal retention in the colon.
[2019-08-03 12:15] LABS: Urine Blood 1+ (NEG); Urine Glucose NEGATIVE (NEG); Urine Protein NEGATIVE (NEG); Urine pH 5.5 (5.0-7.0)
--- NOTE | 2019-08-04 15:36 | EKG ---
Test Date: 2019-08-03 Test Time: 07:44:59 Scallop Cutter Machine: ROBIN MEASUREMENT RESULTS: Intervals: Rate: 57 WI: 182 QRSD: 86 QT: 476 QTc: 463 [employer]: P: 72 WI: 182 QRS: 37 T: 19 INTERPRETIVE STATEMENTS: Sinus bradycardia Minimal voltage criteria for LVH, may be normal variant Borderline ECG Compared to ECG 03/30/2017 23:06:36 Left ventricular hypertrophy now present Sinus rhythm no longer present Myocardial infarct finding no longer present Electronically Signed On 08-04-19 15:35:44 OXYGEN SYSTEM TESTER by Duong Preston
== END 2019-08-03 11:14 | disposition home or self-care (01) ==
LOC: ER 06:47
DX: K59.00 Constipation, unspecified (principal); W01.0XXA Fall on same level from slipping, tripping and stumbling without subsequent striking against object, initial encounter; Y93.9 Activity, unspecified; Y92.9 Unspecified place or not applicable; I10 Essential (primary) hypertension; G40.909 Epilepsy, unspecified, not intractable, without status epilepticus; E78.5 Hyperlipidemia, unspecified
CPT/HCPCS: 93005; 85025; 80048; 36415; 80320; 82010; 82550; 80329 ×2; 85610; 80076; 80307 ×8; 83605; 85730; 81003; 83690; 84145; 70450; 72125; 76377; 74176; 74018; 51702 ×2; 96374; 99284; J3411; J7030 ×2

== ENCOUNTER 2019-11-18 21:06 | Emergency (ER) | payer OTHER ==
--- OUTSIDE RECORDS SUMMARY | 2019-11-18 21:08 | XMS REPORT | Clinical Summary ---
:1960 Author Organization [facility] Address [address] [place] [address] Care Team Providers Name Role Phone Bong Primary Care Provider Allergies No Known Allergies Medications Medication Sig Dispensed Refills Start Date End Date Status traZODone (DESYREL) Take 50 mg by mouth 0 Active 50 MG tablet nightly Does not know dose . cholecalciferol, Take 5,000 Units by 0 Active vitamin D3, 5,000 mouth once a week. unit Tab UNKNOWN Blood pressure med 0 A ctive does not know name nor dose . Active Problems Problem Noted Date Suicidal ideation [...] Not on file Results Not on fileafter 11/17/2018 Advance Directives For more information, please contact:[address] [phone] Code Status Date Activated Date Inactivated Comments Full Code 08/29/2016 12:42 AM 08/29/2016 4:35 PM This code status was determined by: Patient
--- OUTSIDE RECORDS SUMMARY | 2019-11-18 21:09 | XMS REPORT | Continuity of Care Document ---
:1960 Author Organization [facility] t Address [address] [place] [address] Care Team Providers Name Role Phone Sharpless Primary Care Physician MINI CERRATO Attending Clinician Unavailable MANUELA GARDNER Admitting Clinician Unavailable Problems Condition Condition Condition Status Onset Resolution Last Treating Co mments Source Name Details Category Date Date Treatment Clinician Date Suicidal Suicidal Disease [facility] [place] Alcohol Alcohol Disease Active [facility] intoxicati intoxicati 08-29 Randee kes - on on 00:00: Medical 00 [place] Fall, Fall, Disease Active [facility] initial initial 08-29 [facility] encounter encounter 00:[facility]: [address] Depression Depression Problem Active [facility] anxiety [facility] Constipati Constipati Problem Active [facility] Seizures [facility]izures Problem [facility] Allergic Allergic Problem [facility] Hyperlipid Hyperlipid Problem Active [facility] emia emia [facility] Hypothyroi Hypothyroi Problem Active [facility] dism dism [facility] Vitamin D Vitamin D Problem Active [facility] deficiency deficiency Randee kes - [facility] Urinary Urinary Problem Active [facility] frequency frequency [facility] Hypotensio Hypotensio Problem Active [facility] n [facility] Benign Benign Problem Active [facility] essential essential [facility] - HTN HTN [facility] Localized Localized Problem Active [facility] osteoporos osteoporos Randee kes - is, is, Memoria unspecifie unspecifie l d d Outpati pathologic pathologic en t al al Clinics fracture fracture presence presence Gastroesop Gastroesop Problem Active [facility] hageal hageal [facility] - reflux reflux [facility]oria disease disease l without without Outpati esophagiti esophagiti en t s s Clinics Nicotine Nicotine Problem Active [facility] dependence dependence Randee kes - [facility] Vomiting Vomiting Problem Active [facility] without without [facility] nausea, nausea, Memoria intractabi intractabi l lity of lity of Outpati vomiting vomiting ent not not Clinics specified, specified, unspecifie unspecifie d vomiting d vomiting type type Localized Localized Problem Active [facility] swelling, swelling, Luke s - mass and mass and Memori a lump, neck lump, neck l [facility] Primary Primary Problem Active [facility] insomnia insomnia [facility] Mild Mild Problem Active [facility] obesity obesity [facility] Cigarette Cigarette Problem Active [facility] nicotine nicotine [facility] - dependence dependence Me moria without without l complicati complicati Ou tpati on on ent Clinics Abnormal Abnormal Problem Active [facility] weight weight [facility] loss loss [facility] Hypotensio Hypotensio Problem Active [facility] n due to n due to [facility] drugs drugs [facility] Epigastric Epigastric Problem Active [facility] pain pain [facility] Allergies, Adverse Reactions, Alerts Allergy Allergy Status Severity Reaction(s) Onset Inactive Treating Comm ents Source Name Type Date Date Clinician Morphine Adverse Active nausea [facility] Sulfate Reaction [facility] Social History Social Habit Start Date Stop Date Quantity Comments Source Sex Assigned At [facility] Smoking Status Start Date Stop Date Source Current every day smoker 2016-08-28 00:00:00 [facility] Medications Ordered Filled Start Stop Current Ordering Indication Dosage Frequency Signature Comments Components Source Medication Medication Date Date Medication? Clinician (SIG) Name Name Triamtriston Triamcinvan 2019- Yes Na Salomon [address] [facility] [facility] ne ne 08 applicatio [facility] - Acetonide Acetonide 00:00: n to Mem oria 00 affected l area [facility] Metoprolol Metoprolol Yes Na Salomon [address] [facility] Succinate Succinate 1-20 [facility] - ER ER 00:00: [facility] Xanax Xanax 2018-06 Yes Na Salomon [address] [facility] 2-16 [facility] 00:[facility]: [facility] traZODone Yes 50mg QD Take [address] (DESYREL) 3-27 by mouth [facility] - 50 MG 19:12: nightly Medical tablet 23 Does not Center know dose . cholecalcif Yes 5000U Q7D Take 5,[address] michelle, 3-27 Units by [facility] - vitamin D3, 19:12: mouth once Medical 5,000 unit 23 a week. Center Tab UNKNOWN Yes Blood [facility] 3-27 pressure [facility] - 19:12: med does Medical 23 not know Center name nor dose . Trazodone Trazodone Yes Na Salomon [address] [facility] HCl HCl at bedtime [facility] - as needed [facility] Furosemide Furosemide Yes Na Salomon [address] Potassium Potassium Yes Na Salomon not [facility] defined [facility] Levothyroxi Levothyroxi Yes Na Salomon [address] [facility] ne Sodium ne Sodium on an Luke s - empty Memoria stomach in l the Outpati morning ent Clinics Furosemide Furosemide Yes Na Salomon [address] [facility] Dilantin Dilantin Yes Na Salomon [address] [facility] Na Salomon [address] [facility] Ambien Ambien Yes Na Salomon [address] [facility] at bedtime [facility] as needed [facility] Advair Advair Yes Na Salomon [address] [facility] Diskus Diskus [facility] ProAir HFA ProAir HFA Yes Na Salomon [address] [facility] needed [facility]ics Phenytoin Phenytoin Yes Na Salomon not [facility] defined [facility] Cobabakar Cozaar Yes Na Salomon [address] [facility] Pravastatin Pravastatin Yes Na Salomon [address] [facility] Sodium Sodium [facility] Omeprazole Omeprazole Yes Na Salomon [address] kes - [facility] Dilaudid Dilaudid Yes Na Salomon [address] [facility] as needed kes - [facility] Immunizations Ordered Filled Immunization Date Status Comments Sour e Immunization Name Name Janelle Luis 2019-02-[address] [facility] Procedures This patient has no known procedures. Encounters Start End Encounter Admission Attending Care Care Encounter Source Date/Time Date/Time Type Type Clinicians Facility Department ID 2019-10-10 2019-10-10 [place] [id number] [facility] 14:09:00 14:09:00 [facility] Medicine Outpati ent Clinics 2019-06-23 2019-06-23 Outpatient [place] [id number] [facility] 16:20:00 16:20:00 [facility] Medicine Outpati ent Clinics 2019-05-19 2019-05-19 [place] [id number] 10:55:00 10:55:00 [facility] Medicine Outpati ent Clinics 2019-04-01 2019-04-01 [place] [place] [id number] [address] 16:27:00 16:27:00 [facility] Medicine Outpati ent Clinics 2019-04-01 2019-04-01 [place] [place] [id number] 15:56:00 15:56:00 [facility] Medicine Outpati ent Clinics 2019-04-01 2019-04-01 [place] [id number] [address] 10:41:00 10:41:00 [facility] Medicine Outpati ent Clinics 2019-02-13 2019-02-13 [place] [place] [id number] [address] 10:20:00 10:20:00 t [place] - [facility] Medicine Outpati ent Clinics 2019-02-10 2019-02-10 [place] [place] [id number] 16:38:00 16:38:00 [place] [employer] [place] [facility] - [facility] Medicine Outpati ent Clinics 2018-05-23 2018-05-23 [place] [place] [id number] 09:00:00 09:00:00 [place] [employer] [facility] - Drive [facility] Medicine Outpati ent Clinics 2018-04-15 2018-04-15 [facility] [place] [id number] 11:00:00 11:00:00 t [place] [employer] [facility] s - Drive [facility] Medicine Outpati ent Clinics 2018-03-15 2018-03-15 [facility] [place] [id number] 11:19:00 11:19:00 [place] [employer] - Drive [facility] Medicine Outpati ent Clinics 2018-02-21 2018-02-21 [facility] [id number] 10:45:00 10:45:00 [place] [employer] - Drive [facility] Medicine Outpati ent Clinics 2017-12-04 2017-12-04 [facility] [place] [id number] 14:02:00 14:02:00 [place] [employer] - Drive [facility] Medicine Outpati ent Clinics 2017-11-21 2017-11-21 [facility] [place] [id number] 15:15:00 15:15:00 t [place] [employer] - Drive [facility] Medicine Outpati ent Clinics Results Test Description Test Time Test Comments Results Result Comments Source RAPID DRUG SCREEN, URINE 2016-08-29 06:02:00 Test Item Value Reference Range Interpretation Comme nts BARBITURATE URINE (BEAKER) (test code = 725) Negative Negative BENZODIAZEPINE SCREEN URINE (BEAKER) (test code = 726) Negative Negative COCAINE (METAB.) SCREEN (BEAKER) (test code = 1164) Negative Ne gative METHADONE SCREEN (BEAKER) (test code = 1436) Negative Negative OPIATE SCREEN URINE (BEAKER) (test code = 734) Negative Negativ e CANNABINOID SCREEN URINE (BEAKER) (test code = 727) Negative Ne gative AMPH/METHAMPH SCREEN (BEAKER) (test code = 1438) Negative Negat kennedy PHENCYCLIDINE SCREEN URINE (BEAKER) (test code = 608) Negative Negative OXYCODONE SCREEN URINE (BEAKER) (test code = 2761) Negative Neg ative DRUG CUTOFF CONC.Cocaine 300 ng/mL Cannabinoid 50 ng/mL Benzodiazepine 200 ng/mLBarbiturate 200 ng/mLPhencyclidine 25 ng/mLOpiate 300 ng/mLMethadone 300 ng/mLAmphetamine/ 1000 ng/mL MethamphetamineOxycodone 300 ng/mLURINALYSIS W/ [id number] 05:47:00 Test Item Value Reference Range Interpretation Comments COLOR (BEAKER) (test code = Light Yellow 470) CLARITY (BEAKER) (test code = Clear 469) SPECIFIC GRAVITY UA (BEAKER) 1.001 1.001-1.035 (test code = 468) PH UA (BEAKER) (test code = 7.0 5.0-8.0 467) PROTEIN UA (BEAKER) (test code Negative Negative = 464) GLUCOSE UA (BEAKER) (test code Negative Negative = 365) KETONES UA (BEAKER) (test code Negative Negative = 371) BILIRUBIN UA (BEAKER) (test Negative Negative code = 462) BLOOD UA (BEAKER) (test code = Negative Negative 461) NITRITE UA (BEAKER) (test code Negative Negative = 465) LEUKOCYTE ESTERASE UA (BEAKER) Large Negative A (test code = 466) UROBILINOGEN UA (BEAKER) (test 0.2 mg/dL 0.2-1.0 code = 463) RBC UA (BEAKER) (test code = 0 /HPF 519) WBC UA (BEAKER) (test code = 28 /HPF 520) BACTERIA (BEAKER) (test code = Rare 517) SQUAMOUS EPITHELIAL (BEAKER) < /HPF (test code = 516) SOURCE(BEAKER) (test code = Urine, Voided 9734) BASIC METABOLIC [id number] 02:25:00 Test Item Value Reference Range Interpretation Comments SODIUM (BEAKER) 139 meq/L 136-145 (test code = 381) POTASSIUM (BEAKER) 3.9 meq/L 3.5-5.1 (test code = 379) CHLORIDE (BEAKER) 104 meq/L 98-107 (test code = 382) CO2 (BEAKER) (test 26 meq/L 22-29 code = 355) BLOOD UREA NITROGEN 11 mg/dL 7-21 (BEAKER) (test code = 354) CREATININE (BEAKER) 0.78 mg/dL 0.57-1.25 (test code = 358) GLUCOSE RANDOM 82 mg/dL 70-105 (BEAKER) (test code = 652) CALCIUM (BEAKER) 8.2 mg/dL 8.4-10.2 L (test code = 697) EGFR (BEAKER) (test 76 mL/min/1.73 ESTIMA SAMMY GFR IS code = 1092) sq m NOT ACCURATE CREATININE CLEARANCE IN PREDICTING GLOMERULAR FILTRATION RATE . ESTIMATED GFR I S NOT APPLICABLE FOR DIALYSIS PATIEN TS. CBC W/PLT COUNT & AUTO [id number] 02:17:00 Test Item Value Reference Range Interpretation Comments WHITE BLOOD CELL COUNT (BEAKER) 4.9 K/ L 4.0-10.0 (test code = 775) RED BLOOD CELL COUNT (BEAKER) 4.00 M/ L 4.00-5.00 (test code = 761) HEMOGLOBIN (BEAKER) (test code = 13.2 GM/DL 12.0-15.0 410) HEMATOCRIT (BEAKER) (test code = 38.7 % 36.0-45.0 411) MEAN CORPUSCULAR VOLUME (BEAKER) 96.7 fL 82.0-99.0 (test code = 753) MEAN CORPUSCULAR HEMOGLOBIN 32.9 pg 27.0-33.0 (BEAKER) (test code = 751) MEAN CORPUSCULAR HEMOGLOBIN CONC 34.0 GM/DL 32.0-36.0 (BEAKER) (test code = 752) RED CELL DISTRIBUTION WIDTH 13.3 % 10.3-14.2 (BEAKER) (test code = 412) PLATELET COUNT (BEAKER) (test 216 K/CU MM 150-430 code = 756) MEAN PLATELET VOLUME (BEAKER) 6.9 fL 6.5-10.5 (test code = 754) NUCLEATED RED BLOOD CELLS 0 /100 WBC 0-0 (BEAKER) (test code = 413) NEUTROPHILS RELATIVE PERCENT 50 % (BEAKER) (test code = 429) LYMPHOCYTES RELATIVE PERCENT 38 % (BEAKER) (test code = 430) MONOCYTES RELATIVE PERCENT 7 % (BEAKER) (test code = 431) EOSINOPHILS RELATIVE PERCENT 4 % (BEAKER) (test code = 432) BASOPHILS RELATIVE PERCENT 1 % (BEAKER) (test code = 437) NEUTROPHILS ABSOLUTE COUNT 2.44 K/ L 1.80-8.00 (BEAKER) (test code = 670) LYMPHOCYTES ABSOLUTE COUNT 1.85 K/ L 1.48-4.50 (BEAKER) (test code = 414) MONOCYTES ABSOLUTE COUNT (BEAKER) 0.37 K/ L 0.00-1.30 (test code = 415) EOSINOPHILS ABSOLUTE COUNT 0.18 K/ L 0.00-0.50 (BEAKER) (test code = 416) BASOPHILS ABSOLUTE COUNT (BEAKER) 0.04 K/ L 0.00-0.20 (test code = 417) [id number] 20:56:00 Test Item Value Reference Range Interpretation Comments ETHANOL (BEAKER) (test code = 400) 259 mg/dL <=10 H BASIC METABOLIC [id number] 20:55:00 Test Item Value Reference Range Interpretation Comments SODIUM (BEAKER) 136 meq/L 136-145 (test code = 381) POTASSIUM (BEAKER) 3.3 meq/L 3.5-5.1 L (test code = 379) CHLORIDE (BEAKER) 100 meq/L 98-107 (test code = 382) CO2 (BEAKER) (test 24 meq/L 22-29 code = 355) BLOOD UREA NITROGEN 10 mg/dL 7-21 (BEAKER) (test code = 354) CREATININE (BEAKER) 0.74 mg/dL 0.57-1.25 (test code = 358) GLUCOSE RANDOM 77 mg/dL 70-105 (BEAKER) (test code = 652) CALCIUM (BEAKER) 8.3 mg/dL 8.4-10.2 L (test code = 697) EGFR (BEAKER) (test mL/min/1.73 INSUFFIC IENT CLINICAL code = 1092) sq m DATA TO CALCULA TE ESTIMATED GFR. HEPATIC FUNCTION [id number] 20:54:00 Test Item Value Reference Range Interpretation Comments TOTAL PROTEIN (BEAKER) (test code = 7.0 gm/dL 6.0-8.3 770) ALBUMIN (BEAKER) (test code = 1145) 4.0 g/dL 3.5-5.0 BILIRUBIN TOTAL (BEAKER) (test code 0.2 mg/dL 0.2-1.2 = 377) BILIRUBIN DIRECT (BEAKER) (test 0.1 mg/dL 0.1-0.5 code = 706) ALKALINE PHOSPHATASE (BEAKER) (test 89 U/L 40-150 code = 346) AST (SGOT) (BEAKER) (test code = 22 U/L 5-34 353) ALT (SGPT) (BEAKER) (test code = 22 U/L 6-55 347) CBC W/PLT COUNT & AUTO [id number] 20:36:00 Test Item Value Reference Range Interpretation Comments WHITE BLOOD CELL COUNT (BEAKER) 7.5 K/ L 4.0-10.0 (test code = 775) RED BLOOD CELL COUNT (BEAKER) 3.99 M/ L 4.00-5.00 L (test code = 761) HEMOGLOBIN (BEAKER) (test code = 13.8 GM/DL 12.0-15.0 410) HEMATOCRIT (BEAKER) (test code = 37.9 % 36.0-45.0 411) MEAN CORPUSCULAR VOLUME (BEAKER) 94.9 fL 82.0-99.0 (test code = 753) MEAN CORPUSCULAR HEMOGLOBIN 34.7 pg 27.0-33.0 H (BEAKER) (test code = 751) MEAN CORPUSCULAR HEMOGLOBIN CONC 36.5 GM/DL 32.0-36.0 H (BEAKER) (test code = 752) RED CELL DISTRIBUTION WIDTH 12.4 % 10.3-14.2 (BEAKER) (test code = 412) PLATELET COUNT (BEAKER) (test 218 K/CU MM 150-430 code = 756) MEAN PLATELET VOLUME (BEAKER) 6.5 fL 6.5-10.5 (test code = 754) NUCLEATED RED BLOOD CELLS 0 /100 WBC 0-0 (BEAKER) (test code = 413) NEUTROPHILS RELATIVE PERCENT 50 % (BEAKER) (test code = 429) LYMPHOCYTES RELATIVE PERCENT 39 % (BEAKER) (test code = 430) MONOCYTES RELATIVE PERCENT 8 % (BEAKER) (test code = 431) EOSINOPHILS RELATIVE PERCENT 3 % (BEAKER) (test code = 432) BASOPHILS RELATIVE PERCENT 1 % (BEAKER) (test code = 437) NEUTROPHILS ABSOLUTE COUNT 3.71 K/ L 1.80-8.00 (BEAKER) (test code = 670) LYMPHOCYTES ABSOLUTE COUNT 2.90 K/ L 1.48-4.50 (BEAKER) (test code = 414) MONOCYTES ABSOLUTE COUNT (BEAKER) 0.63 K/ L 0.00-1.30 (test code = 415) EOSINOPHILS ABSOLUTE COUNT 0.20 K/ L 0.00-0.50 (BEAKER) (test code = 416) BASOPHILS ABSOLUTE COUNT (BEAKER) 0.05 K/ L 0.00-0.20 (test code = 417) 0.00
--- OUTSIDE RECORDS SUMMARY | 2019-11-18 21:09 | XMS REPORT ---
:1960 Author Organization [employer] Care Team Providers Name Role Phone Salomon, Na Provider Role Unavailable Allergies No Known Allergies Problems Problem Type Condition Code Onset Dates Condition Statu s Problem Gastroesophageal reflux disease K21.9 Active without esophagitis Problem Localized swelling, mass and lump, R22.1 Active neck Problem Nicotine dependence F17.200 Active Problem Epigastric pain R10.13 Active Problem Urinary frequency R35.0 Active Problem Hypotension 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 Act kennedy Problem Abnormal weight loss R63.4 Active Problem Localized osteoporosis, unspecified M81.6 Active pathological fracture presence Problem Primary insomnia F51.01 Active Problem Cigarette nicotine dependence F17.210 Active without complication Problem Vomiting without nausea, R11.11 Act kennedy intractability of vomiting not specified, unspecified vomiting type Problem Hypothyroidism E03.9 Active Problem Allergic rhinitis J30.9 Active Problem Vitamin D deficiency E55.9 Active Problem Benign essential HTN I10 Active Problem Hypotension I95.9 Active Problem Depression with anxiety F41.8 Acti ve Problem Hyperlipidemia E78.5 Active Problem Seizures R56.9 Active Problem Constipation K59.00 Active Problem Mild obesity E66.9 Active Medications Medication Code Code Instructions Start End Status Dosage System Date Date Dilantin ND 75445741859 100 MG Orally Active 5 cap rodrigo Furosemide ND 62752135992 80 MG Orally Active 1 ta blet Once a day Cozaar ND 80412989944 100 MG Orally Active 1 tabl et Once a day Furosemide ND 52118974836 40 MG Orally Active 1 ta blet Once a day ProAir HFA [facility] 27054529974 108 (90 Base) Active 1 p uff as MCG/ACT needed Inhalation every 6 hours Triamcinolone ND 73009124667 0.1 % October 09, Active 1 appl ication Acetonide Externally 2020 to affected Twice a day area Omeprazole ND 38467972526 40 MG Orally Active 1 ca psule Once a day Cymbalta ND 42539009502 60 MG Orally Active 1 caps ule Once a day Metoprolol [facility] 44561894560 25 MG Orally Jun 23, Active 1 ta blet Succinate ER Once a day 2019 Dilaudid [facility] 35098673819 4 MG Orally Active 1 table t as every 4 hrs needed Advair Diskus [facility] 30749356129 250-50 Active 1 puff MCG/DOSE Inhalation Twice a day Trazodone HCl [facility] 74887225812 50 MG Orally Active 1 tablet at Once a day bedtime as needed Phenytoin [facility] [address]-78 Active not defi ericka Xanax [facility] 75225604983 0.5 MG Orally May 19, Active 1 tabl et Twice a day 2018 Pravastatin [facility] 22220485010 20 MG Orally Active 1 t ablet Sodium Once a day Ambien [facility] 54360850895 10 MG Orally Active 1 table t at Once a day bedtime as needed Potassium [facility] 87863-[address]15 Active not define d Levothyroxine [facility] 31710971830 88 MCG Orally Active 1 tablet on Sodium Once a day an empty stomach in the morning Results No Known Results Summary Purpose [employer] Submission
[2019-11-18 22:12] LABS: Basophils % 0.6 % (0-1.3); Hematocrit 43.7 % (36.0-45.0); Lymphocytes % 31.4 % (15.3-44.8); MPV 8.3 fL (7.6-11.3)
[2019-11-18 22:15] LABS: Protime INR 0.87
[2019-11-18] MEDS ORDERED: NA CHLORIDE 0.9% 1,000 ML ONE (22:27)
[2019-11-18 22:37] LABS: ALT/SGPT 62 U/L (12-78); AST/SGOT 35 U/L (15-37); Alkaline Phosphatase 93 U/L (45-117); BUN Blood Urea Nitrogen 22 mg/dL (7-18); Bicarbonate 31 mmol/L (21-32); Bilirubin Direct 0.1 mg/dL (0-0.2); Bilirubin Total 0.2 mg/dL (0.2-1.0); Glucose Level 82 mg/dL (74-106); Potassium 3.9 mmol/L (3.5-5.1); Protein, Total 8.2 g/dL (6.4-8.2); Sodium Level 141 mmol/L (136-145)
[2019-11-18 23:19] LABS: Barbiturates NEGATIVE (NEGATIVE); Benzodiazepines NEGATIVE (NEGATIVE); Cocaine NEGATIVE (NEGATIVE); METHAMPHETAM NEGATIVE (NEGATIVE); Methadone NEGATIVE (NEGATIVE); Opiates NEGATIVE (NEGATIVE); Phencyclidine NEGATIVE (NEGATIVE); THC Cannibis NEGATIVE (NEGATIVE)
[2019-11-18 23:59] LABS: Urine Blood NEGATIVE (NEG); Urine Glucose NEGATIVE (NEG); Urine Protein NEGATIVE (NEG)
--- NOTE | 2019-11-19 01:25 | EDPHYS ---
Physician Documentation [facility] Name: Deann Bhatia Age: 58 yrs Sex: Female : 1960 Arrival Date: 11/18/2019 Time: 21:08 Bed 16 Private MD: ED Physician Melchor Jj HPI: 11/17 21:25 This 58 yrs old Female presents to ER via EMS with complaints of Depression. pm1 21:25 The patient presents to the emergency department with depression. Onset: The pm1 symptoms/episode began/occurred today. Past psychiatric history: Prior diagnosis: no previous psychiatric diagnosis known, Psychiatric medications include: none. Associated signs and symptoms: Pertinent positives; depression, Pertinent negatives: abdominal pain, chest pain, fever, hallucinations, homicidal ideation, shortness of breath, suicide ideation. Patient with complaints of depression. Patient's 3 months ago and she was depressed thinking about him so she started drinking today. She told her neighbor that she wished that she was so that she would be with her in [facility] but does not want to kill or hurt herself or others. Historical: - Allergies: 21:12 No Known Allergies; sg - Home Meds: 21:12 blood pressure med [Active]; cholesterol med [Active]; Multi Vitamin Oral [Active]; sg oxycodone [Active]; seizure pill [Active]; vit d [Active]; - PMHx: 21:12 chronic back pain; Hyperlipidemia; Hypertension; Seizures; sg - PSHx: 21:12 Appendectomy; sg - Immunization history:: Adult Immunizations up to date. - Social history:: Smoking status: Patient denies any tobacco usage or history of. ROS: 21:25 Constitutional: Negative for fever, chills, and weight loss, Neck: Negative for injury, pm1 pain, and swelling, Cardiovascular: Negative for chest pain, palpitations, and edema, Respiratory: Negative for shortness of breath, cough, wheezing, and pleuritic chest pain, Abdomen/GI: Negative for abdominal pain, nausea, vomiting, diarrhea, and constipation, Back: Negative for injury and pain, MS/Extremity: Negative for injury and deformity, Skin: Negative for injury, rash, and discoloration, Neuro: Negative for headache, weakness, numbness, tingling, and seizure. 21:25 Psych: Positive for depression, Negative for drug dependence, alcohol dependence, auditory hallucinations, visual hallucinations, homicidal ideation, suicide gesture, suicidal ideation. Exam: 21:25 Constitutional: This is a well developed, well nourished patient who is awake, alert, pm1 and in no acute distress. Head/Face: Normocephalic, atraumatic. 21:25 Abdomen/GI: Soft, non-tender. No guarding or rebound. No evidence of tenderness throughout. Back: No spinal tenderness. No costovertebral tenderness. Full range of motion. Skin: Warm, dry with normal turgor. Normal color with no rashes, no lesions, and no evidence of cellulitis. MS/ Extremity: Pulses equal, no cyanosis. Neurovascular intact. Full, normal range of motion. 21:25 Cardiovascular: Exam negative for acute changes, Rate: normal, Rhythm: regular, Pulses: no pulse deficits are appreciated, Edema: is not appreciated. 21:25 Respiratory: Exam negative for acute changes, respiratory distress, shortness of breath. 21:25 Neuro: Exam negative for acute changes, Orientation: is normal, Motor: is normal, moves all fours, Sensation: is normal, no obvious gross deficits. Vital Signs: 21:35 BP 139 / 73; Pulse 65; Resp 16; Temp 98.1; Pulse Ox 94% on R/A; Weight 61.23 kg; Height ao 6 ft. 4 in. (193.04 cm); Pain 8/10; 11/18 02:02 BP 138 / 72; Pulse 65; Resp 16; Temp 98.3; Pulse Ox 98% on R/A; Pain 0/10; ao 11/17 21:35 Body Mass Index 16.43 (61.23 kg, 193.04 cm) ao MDM: 11/17 21:12 Patient medically screened. pm1 23:21 Data reviewed: vital signs. pm1 11/18 01:20 Counseling: I had a detailed discussion with the patient and/or guardian regarding: the pm1 historical points, exam findings, and any diagnostic results supporting the discharge/admit diagnosis, lab results, the need for outpatient follow up, a family practitioner, to return to the emergency department if symptoms worsen or persist or if there are any questions or concerns that arise at home. 01:20 ED course: Patient has been walking to restroom with steady gait. Patient denies any pm1 homicidal or suicidal ideation or plans. Therefore will discharge the patient to home. 01:57 ED course: Patient is sober and happily walking out of the ER without any difficulty. pm1 11/17 21:18 Order name: Acetaminophen; Complete Time: 22:44 pm1 11/17 21:18 Order name: Basic Metabolic Panel; Complete Time: 22:44 pm1 11/17 21:18 Order name: CBC with Diff; Complete Time: 22:44 pm1 11/17 21:18 Order name: ETOH Level; Complete Time: 22:44 pm1 11/17 21:18 Order name: Hepatic Function; Complete Time: 22:44 pm1 11/17 21:18 Order name: PT-INR; Complete Time: 22:44 pm1 11/17 21:18 Order name: Ptt, Activated; Complete Time: 22:44 pm1 11/17 21:18 Order name: Salicylate; Complete Time: 22:44 pm1 11/17 21:18 Order name: Urine Drug Screen; Complete Time: 23:21 pm1 11/17 21:18 Order name: EKG; Complete Time: 21:19 pm1 11/17 21:18 Order name: EKG - Nurse/Tech; Complete Time: 22:18 pm1 11/17 21:18 Order name: IV Saline Lock; Complete Time: 22:17 pm1 11/17 23:11 Order name: Urine Dipstick--Ancillary (enter results); Complete Time: 00:05 mw2 11/17 21:18 Order name: Labs collected and sent; Complete Time: 22:18 pm1 11/17 21:18 Order name: Urine Dipstick-Ancillary (obtain specimen); Complete Time: 23:11 pm1 Administered Medications: 11/17 22:23 Drug: NS 0.9% 1000 ml Route: IV; Rate: 1000 ml; Site: right antecubital; ao 11/18 00:00 Follow up: IV Status: Completed infusion; IV Intake: 1000ml ao Disposition: 02:13 Co-signature as Attending Physician, Melchor Jj MD. rn Disposition: 11/19/19 01:24 Discharged to Home. Impression: Disappearance and of family member - bereavement and depression, Alcohol abuse. - Condition is Stable. - Discharge Instructions: Finding Treatment for Addiction, Alcohol Abuse and Nutrition, Complicated Grieving. - Medication Reconciliation Form, Thank You Letter, Antibiotic Education, Prescription Opioid Use form. - Follow up: Emergency Department; When: As needed; Reason: Worsening of condition. Follow up: Private Physician; When: 2 - 3 days; Reason: Recheck today's complaints, Continuance of care, Re-evaluation by your physician. - Problem is new. - Symptoms have improved. Signatures: Dispatcher [employer] EDMS Juan Martinez RN RN sg Nieto, Roman, MD MD rn Ortiz, Alex, RN RN ao Marinas, Patrick, REPRODUCTION ARTIST REPRODUCTION ARTIST pm1 Corrections: (The following items were deleted from the chart) 01:57 01:20 ED course: Patient has walking to restroom with steady gait. Patient denies any pm1 homicidal or suicidal ideation or plans. Therefore will discharge the patient to home. pm1 02:00 01:24 11/19/2019 01:24 Discharged to Home. Impression: Disappearance and of sg family member - bereavement and depressionAlcohol abuse. Condition is Stable. Forms are Medication Reconciliation Form, Thank You Letter, Antibiotic Education, Prescription Opioid Use. Follow up: Emergency Department; When: As needed; Reason: Worsening of condition. Follow up: Private Physician; When: 2 - 3 days; Reason: Recheck today's complaints, Continuance of care, Re-evaluation by your physician. Problem is new. Symptoms have improved. pm1
--- NOTE | 2019-11-19 01:25 | ER ---
Nurse's Notes [facility] Name: Deann Bhatia Age: 58 yrs Sex: Female : 1960 Arrival Date: 11/18/2019 Time: 21:08 Bed 16 Private MD: Diagnosis: Alcohol abuse;Disappearance and of family member-bereavement and depression Presentation: 11/17 21:09 Chief complaint: EMS states: pt neighbor called for assistance due to the patient sg feeling depressed and stating she wanted to harm herself. it is believed that the patient has been drinking and may have taken oxycodones, no witnesses to either reports per EMS. pt denies SI at this time. Coronavirus screen: Proceed with normal triage. Ebola Screen: Patient negative for fever greater than or equal to 101.5 degrees Fahrenheit, and additional compatible Ebola Virus Disease symptoms Patient denies exposure to infectious person. Patient denies travel to an Ebola-affected area in the 21 days before illness onset. No symptoms or risks identified at this time. Initial Sepsis Screen: Does the patient meet any 2 criteria? Does the patient have a suspected source of infection? No. Patient's initial sepsis screen is negative. Risk Assessment: Do you want to hurt yourself or someone else? Patient reports no desire to harm self or others. Onset of symptoms was November 18, 2019. Care prior to arrival: None. Transition of care: patient was not received from another setting of care. 21:09 Acuity: MARILYNN 2 sg 21:09 Method Of Arrival: EMS: [facility] sg Historical: - Allergies: 21:12 No Known Allergies; sg - Home Meds: 21:12 blood pressure med [Active]; cholesterol med [Active]; Multi Vitamin Oral [Active]; sg oxycodone [Active]; seizure pill [Active]; vit d [Active]; - PMHx: 21:12 chronic back pain; Hyperlipidemia; Hypertension; Seizures; sg - PSHx: 21:12 Appendectomy; sg - Immunization history:: Adult Immunizations up to date. - Social history:: Smoking status: Patient denies any tobacco usage or history of. Screenin:34 Abuse screen: Denies threats or abuse. Denies injuries from another. Nutritional ao screening: No deficits noted. Tuberculosis screening: No symptoms or risk factors identified. Fall Risk None identified. Assessment: 21:25 General: Appears in no apparent distress. comfortable, Behavior is calm, cooperative, ao appropriate for age, Smells of alcohol. Pain: Complains of pain in back Pain currently is 8 out of 10 on a pain scale. Is. Neuro: Level of Consciousness is awake, alert, obeys commands, Oriented to person, place, time, situation, Appropriate for age Moves all extremities. Full function Speech is normal. Cardiovascular: Capillary refill < 3 seconds Patient's skin is warm and dry. Respiratory: Airway is patent Respiratory effort is even, unlabored, Respiratory pattern is regular, symmetrical. GI: Abdomen is flat, non-distended. : No signs and/or symptoms were reported regarding the genitourinary system. EENT: No signs and/or symptoms were reported regarding the EENT system. Derm: Skin is intact, Skin is pink, warm \T\ dry. normal, Skin temperature is warm. Musculoskeletal: Circulation, motion, and sensation intact. Range of motion: intact in all extremities. 21:27 General: Patient states that she feels depress and wants to but she would not be ao able to harm or kill her self. Pt states that her neighbor called EMS because she want to make the neighbor believe in [place]. Pt denies suicidal ideation at this time. 22:23 Reassessment: Patient in bed with no SS of distress. Patient resting at this time. ao Safety seater at bedside. 22:52 Reassessment: Patient appears in no apparent distress at this time. Patient and/or ao family updated on plan of care and expected duration. Pain level reassessed. Pt ambulated to the batroom. 11/18 02:01 Reassessment: Patient DC home. Patient agree with a no self harm agreement. ao Psych: 11/17 21:34 Subjective: Patient's mood is sad. Objective: Patient is cooperative. Interventions: ao Removed personal items and placed in bag. Patient placed in hospital gown. Searched person for dangerous items. Suicide Risk Assessment: Sad Person Scale: Sex of patient: Female: Score 0 points. Age of patient: Score 0 point if patient falls outside of specified age parameters. Depression: Score 1 point if signs of depression are present. Previous Attempt: Score 0 point if patient has not previously attempted suicide. Substance Abuse: Score 1 point if patient abuses alcohol or drugs. Rational Thinking: Score 0 point if patient has rational thinking. Social Support: Score 0 if social support is present/available. Organized Plan: Score 1 point if patient had a plan in place. Relationship: Score 1 point if patient is , , , or for a single male Chronic Sickness: Score 1 point if patient has illness, chronic, debilitating, or severe. Safety Checks: Personal items have been removed. Pt has been placed in a hallway bed/chair. Visitors are present. Pt denies substance abuse. 22:24 Commitment: Patient will be a voluntary commitment. ao Vital Signs: 21:35 BP 139 / 73; Pulse 65; Resp 16; Temp 98.1; Pulse Ox 94% on R/A; Weight 61.23 kg; Height ao 6 ft. 4 in. (193.04 cm); Pain 8/10; 11/18 02:02 BP 138 / 72; Pulse 65; Resp 16; Temp 98.3; Pulse Ox 98% on R/A; Pain 0/10; ao 11/17 21:35 Body Mass Index 16.43 (61.23 kg, 193.04 cm) ao ED Course: 11/17 21:08 Patient arrived in ED. sg 21:10 Rangel Mack, JOHSNON is PHCP. pm1 21:10 Melchor Jj MD is Attending Physician. pm1 21:11 Triage completed. sg 21:11 Arm band placed on. sg 21:26 Juan Murphy, RN is Primary Nurse. ao 21:34 No provider procedures requiring assistance completed. ao 21:37 Patient has correct armband on for positive identification. Fall risk band placed. ao Placed in gown. Pulse ox on. NIBP on. 21:50 Inserted saline lock: 20 gauge in left forearm, using aseptic technique. Blood jp3 collected. 21:50 Initial lab(s) drawn, by me, sent to lab. jp3 22:15 EKG done, by ED staff, reviewed by Rangel Mack NP. jp3 22:23 Safety checks: Items removed: yes. Door open/sign placed on door: yes. Family/friend jp3 present: no. Sitter present: Yes. Warm blanket given. Verbal reassurance given. 11/18 02:02 IV discontinued, intact, bleeding controlled, No redness/swelling at site. Pressure ao dressing applied. Administered Medications: 11/17 22:23 Drug: NS 0.9% 1000 ml Route: IV; Rate: 1000 ml; Site: right antecubital; ao 11/18 00:00 Follow up: IV Status: Completed infusion; IV Intake: 1000ml ao Intake: 00:00 IV: 1000ml; Total: 1000ml. ao Outcome: 01:24 Discharge ordered by MD. pm1 02:00 Patient left the ED. sg 02:00 Discharged to home via wheelchair, with significant other. ao 02:00 Condition: stable 02:00 Discharge instructions given to patient, Instructed on discharge instructions, follow up and referral plans. Demonstrated understanding of instructions, follow-up care, medications. Signatures: Juan Martinez RN RN sg Ortiz, Alex, RN RN ao Marinas, Patrick, NP DIRECTOR TECHNICAL pm1 Max Quintanilla jp3
[2019-11-19 02:08] VITALS: BP 139/73; TEMP 98.1; O2SAT 94
--- NOTE | 2019-11-19 06:25 | EKG ---
Test Date: 2019-11-18 Test Time: 22:16:34 Die Machine Operator: TONY MEASUREMENT RESULTS: Intervals: Rate: 63 TX: 190 QRSD: 90 QT: 458 QTc: 468 [place]: P: 87 [place]: 190 QRS: 84 T: 50 INTERPRETIVE STATEMENTS: Normal sinus rhythm Septal infarct, age undetermined Abnormal ECG Compared to ECG 08/03/2019 07:44:59 Myocardial infarct finding now present Sinus bradycardia no longer present Left ventricular hypertrophy no longer present Electronically Signed On 11-19-19 06:24:18 CDT by Wesly Duvall
== END 2019-11-19 02:00 | disposition home or self-care (01) ==
LOC: ER 21:06
DX: F32.9 Major depressive disorder, single episode, unspecified (principal); F10.10 Alcohol abuse, uncomplicated; I10 Essential (primary) hypertension; E78.5 Hyperlipidemia, unspecified; G40.909 Epilepsy, unspecified, not intractable, without status epilepticus
CPT/HCPCS: 96361; 93005; 85025; 80048; 36415; 80320; 80329 ×2; 85610; 80076; 80307 ×8; 85730; 81003; 96360; 99285; J7030

== ENCOUNTER 2021-09-11 15:02 | Observation (INO) | payer OTHER ==
--- OUTSIDE RECORDS SUMMARY | 2021-09-11 15:05 | XMS REPORT | Continuity of Care Document ---
:1960 Author Organization [facility] t Address [address] [place] [address] Care Team Providers Name Role Phone Carlos Salomon Attending Clinician Unavailable MINI CERRATO Attending Clinician Unavailable MANUELA GARDNER Admitting Clinician Unavailable Problems This patient has no known problems. Allergies, Adverse Reactions, Alerts Allergy Allergy Status Severity Reaction(s) Onset Inactive Treating Comm ents Source Name Type Date Date Clinician NO KNOWN Allergy Active [facility] Morphine Adverse Active nausea [facility] Medications Ordered Filled Start Stop Current Ordering Indication Dosage Frequency Signature Comments Components Source Medication Medication Date Date Medication? Clinician (SIG) Name Name Triamtriston Triamcinolo 2019-0 Yes Na Slaomon [address] [facility] ne ne 5-08 applicatio [facility] Acetonide Acetonide 00:00: n to [facility] 00 affected l area [facility] ent Clinics Metoprolol Metoprolol 2019-0 Yes Na Salomon [address] [facility] Succinate Succinate 1-20 [facility] Xanax Xanax 2018- Yes Na Salomon [address] [facility] 2-16 [facility] Levothyroxi Levothyroxi Yes Na Salomon [address] [facility] ne Sodium ne Sodium on an Luke s - empty Memoria stomach in l the Outpati morning ent Clinics Furosemide Furosemide Yes Na Salomon [address] [facility] Cymbalta Cymbalta Yes Na Salomon [address] [facility] Cozaar Cozaar Yes Na Salomon [address] [facility] Pravastatin Pravastatin Yes Na Salomon [address] [facility] Sodium Sodium [facility] Omeprazole Omeprazole Yes Na Salomon [address] [facility] ProAir HFA ProAir HFA Yes Na Salomon [address] [facility] needed [facility] Ambien Ambien Yes Na Salomon [address] [facility] at bedtime [facility] Phenytoin Phenytoin Yes Na Salomon not [facility] defined [facility] Furosemide Furosemide Yes Na Salomon [address] [facility] Advair Advair Yes Na Salomon [address] [facility] Diskus Diskus [facility] Dilaudid Dilaudid Yes Na Salomon [address] [facility] Trazodone Trazodone Yes Na Salomon [address] [facility] HCl HCl at bedtime [facility] Potassium Potassium Yes Na Salomno not [facility] Dilantin Dilantin Yes Na Salomon [address] [facility] Amitiza Amitiza Yes Na Salomon [address] with food [facility] water [facility] Immunizations Ordered Filled Immunization Date Status Comments [facility] e Immunization Name Name FluANNE FluAD 2019-02-[address] [facility]00 [facility] Procedures This patient has no known procedures. Encounters Start End Encounter Admission Attending Care Care Encounter Source Date/Time Date/Time Type Type Clinicians Facility Department ID 2021-06-[address] [facility] [id number] [facility] [address] 12:36:25 [id number] [facility] 2021-06-[address] [facility] [id number] [facility] [address] 12:35:33 [id number] [facility] 2021-06-29 Outpatient Salomon, Na STLMLC STLMLC [id number] [facility] 12:07:12 [id number] [facility] 2021-06-29 Outpatient Salomon, Na STLMLC STLMLC [id number] [facility] [address] 12:06:16 [id number] [facility] 2021-06-29 Outpatient Aime, Na STLMLC STLMLC [id number] [facility] [address] 11:38:53 [id number] [facility] 2021-06-29 Outpatient Aime, Na STLMLC STLMLC [id number] [facility] 11:36:25 [id number] [facility] 2021-06-29 Outpatient Aime, Na STLMLC STLMLC [id number] [facility] [address] 11:17:48 [id number] [facility] 2021-06-29 Outpatient Aime, Na STLMLC STLMLC [id number] [facility] 11:01:55 [id number] [facility] 2021-09-06 2021-09-06 ambulatory [facility] [id number] [facility] 2021-08-29 2021-08-29 ambulatory [facility] [id number] [facility] 2021-05-06 2021-05-06 ambulatory [facility] [id number] [facility] 2021-04-27 2021-04-27 ambulatory [facility] [id number] [facility] 2020-10-21 2020-10-21 Outpatient [facility]C [facility] [id number] [facility] 2020-10-20 2020-10-20 Outpatient [facility] [id number] [facility] 2020-08-06 2020-08-06 Outpatient [facility] [id number] [facility] 2020-07-22 2020-07-22 Outpatient [facility] [id number] [facility] 2020-03-24 2020-03-24 [facility] [id number] [facility] 2020-01-24 2020-01-24 [facility] [id number] [facility] 12[facility]20:00 12:20:00 [place] [employer] [facility] l Medicine Outpati ent Clinics 2020-01-23 2020-01-23 [facility] [id number] 14:00:00 14:00:00 [place] [employer] [facility] Medicine l Medicine Outpati ent Clinics 2020-01-23 2020-01-23 [facility] [id number] [address] 13[facility]00:00 13:00:00 [place] [employer] [facility] Medicine l Medicine Outpati ent Clinics 2020-01-02 2020-01-02 [facility] [id number] 15:48:00 15:48:00 [place] [employer] - Stage I Diagnostics [facility] Family [facility] l Medicine Outpati ent Clinics 2019-10-10 2019-10-10 [facility] [id number] [address] 14:09:00 14:09:00 [place] [employer] [facility] Medicine l Medicine Outpati ent Clinics 2019-06-23 2019-06-23 [facility] [id number] [address] 16:20:00 16:20:00 [place] [employer] [facility] Medicine l Medicine Outpati ent Clinics 2019-05-19 2019-05-19 [facility] [id number] [address] 10:55:00 10:55:00 [place] [employer] [facility] Medicine l Medicine Outpati ent Clinics 2019-04-01 2019-04-01 [facility] [id number] 16:27:00 16:27:[address] [place] [address] [place] [facility] Medicine l Medicine Outpati ent Clinics 2019-04-01 2019-04-01 [facility] [id number] 15:56:00 15:56:[address] [place] [facility] Drive [facility] Medicine l Medicine Outpati ent Clinics 2019-04-01 2019-04-01 [facility] [id number] 10:41:00 10:41:[address] [place] [address] [facility] Medicine l Medicine Outpati ent Clinics 2019-02-13 2019-02-13 [facility] [id number] [facility] 10:20:00 10:20:[address] [place] [address] [facility] Medicine l Medicine Outpati ent Clinics 2019-02-10 2019-02-10 [facility] [id number] [facility] 16:38:00 16:38:[address] [place] [facility] Medicine l Medicine Outpati ent Clinics 2018-05-23 2018-05-23 [facility] [id number] [facility] 09:00:00 09:00:[address] [place] [address] [place] [facility] Medicine l Medicine Outpati ent Clinics 2018-04-15 2018-04-15 [facility] [id number] [address] 11:00:00 11:00:[address] [place] [address] [place] [facility] Medicine l Medicine Outpati ent Clinics 2018-03-15 2018-03-15 [facility] [id number] [facility] 11:19:00 11:19:[address] [place] [facility] Medicine Medicine Outpati ent Clinics 2018-02-21 2018-02-21 [facility] [id number] 10:45:00 10:45:[address] [place] [place] [facility] Medicine Medicine Outpati ent Clinics 2017-12-04 2017-12-04 [facility] [id number] [facility] 14:02:00 14:02:00 [place] [facility] 2017-11-21 2017-11-21 [facility] [id number] [facility] 15:15:00 15:15:00 t [facility] Results Test Description Test Time Test Comments [...] ng/mLAmphetamine/ 1000 ng/mL MethamphetamineOxycodone 300 ng/mLURINALYSIS W/ [id number] 05:47:00 Test Item Value Reference Range Interpretation [...] 516) SOURCE(BEAKER) (test code = Urine, Voided 3466) BASIC METABOLIC [id number] 02:25:00 Test Item Value Reference Range Interpretation [...] PATIEN TS. CBC W/PLT COUNT & AUTO [id number] 02:17:00 Test Item Value Reference Range Interpretation [...] K/ L 0.00-0.20 (test code = 417) [id number] 20:56:00 Test Item Value Reference Range Interpretation Comments ETHANOL (BEAKER) (test code = 400) 259 mg/dL <=10 H BASIC METABOLIC [id number] 20:55:00 Test Item Value Reference Range Interpretation [...] TO CALCULA TE ESTIMATED GFR. HEPATIC FUNCTION [id number] 20:54:00 Test Item Value Reference Range Interpretation [...] 6-55 347) CBC W/PLT COUNT & AUTO [id number] 20:36:00 Test Item Value Reference Range Interpretation [...]
[2021-09-11] MEDS ORDERED: METHYLPREDNISOLONE 125 MG INJ ONE (16:52)
[2021-09-11] MEDS ORDERED: LEVALBUTEROL 1.25 MG/3 ML NEB ONE (16:52)
[2021-09-11 17:06] LABS: Absolute Lymphocytes (CBC) 1.9 K/uL (0.7-4.9); Hematocrit 40.6 % (36.0-45.0); Lymphocytes % 27.5 % (15.3-44.8); MPV 8.1 fL (7.6-11.3); RBC Red Blood Cell Count 4.53 M/uL (3.86-4.86)
[2021-09-11 17:11] LABS: Protime INR 0.97
[2021-09-11 17:25] LABS: Albumin 3.4 g/dL (3.4-5.0); Bilirubin Direct 0.2 mg/dL (0-0.2); Bilirubin Total 0.4 mg/dL (0.2-1.0); Potassium 3.6 mmol/L (3.5-5.1); Protein, Total 7.3 g/dL (6.4-8.2); Troponin High Sensitivity 35.9 pg/mL (<58.9)
[2021-09-11 17:26] LABS: Magnesium 2.3 mg/dL (1.8-2.4)
[2021-09-11] MEDS ORDERED: HYDROCODONE/APAP 10/325 TAB ONE (17:36)
[2021-09-11 17:43] LABS: SARS-COV-2 RT PCR NEGATIVE (NEGATIVE)
--- NOTE | 2021-09-11 17:58 | RAD REPORT ---
EXAM DESCRIPTION: RAD - Chest Single View - 09/11/2021 5:47 pm CLINICAL HISTORY: SOB COMPARISON: Abdomen 1 View (KUB) dated 08/03/2019; Chest Single View dated 03/30/2017; CHEST PA AND LA T 2 VIEW dated 09/07/2014; CHEST PA AND LAT 2 VIEW dated 08/01/2014bdomen 1 View (KUB) dated 08/03/2019; Chest Single View dated 03/30/2017; CHEST PA AND LAT 2 VIEW dated 09/07/2014; CHEST PA AND LAT 2 VIEW d ated 08/01/2014; Stone Protocol dated 08/03/2019 FINDINGS: Lines: None. Lungs: Basilar opacity in septal lines. Pleural: Small effusions bilaterally . Cardiac: Mild cardiomegaly . Bones: No acute fractures. Other: IMPRESSION: Mild interstitial and airspace disease predominantly basilar in orientation with small e ffusions. This may be secondary to interstitial edema. Pneumonia within the differential.
--- NOTE | 2021-09-11 18:26 | ER ---
Nurse's Notes [facility] Name: Deann Bhatia Age: 60 yrs Sex: Female : 1960 Arrival Date: 09/11/2021 Time: 15:05 Bed 8 Private MD: Diagnosis: Shortness of breath;Acute respiratory failure with hypoxia Presentation: 09/11 15:42 Chief complaint: Patient states: SOB and cough for 2-3 weeks, getting worse. SOB with ll1 exertion was worse today. No fever. Out of all meds for about 1 month. Coronavirus screen: Vaccine status: Patient reports being unvaccinated. Client denies travel out of the [place] in the last 14 days. cough unrelated to allergies, difficulty breathing, shortness of breath, Client presents with at least one sign or symptom that may indicate coronavirus-19. Standard/surgical mask placed on the client. Ebola Screen: Patient denies travel to an Ebola-affected area in the 21 days before illness onset. Initial Sepsis Screen: Does the patient meet any 2 criteria? HR > 90 bpm. No. Patient's initial sepsis screen is negative. Does the patient have a suspected source of infection? No. Patient's initial sepsis screen is negative. Risk Assessment: Do you want to hurt yourself or someone else? Patient reports no desire to harm self or others. Onset of symptoms was August 25, 2021. 15:42 Method Of Arrival: Ambulatory ll1 15:42 Acuity: MARILYNN 2 ll1 Triage Assessment: 15:51 General: Appears uncomfortable, ill, Behavior is cooperative, appropriate for age. ll1 Pain: Denies pain. Respiratory: Reports shortness of breath on exertion cough that is Onset: The symptoms/episode began/occurred 2-3 weeks, the patient has moderate shortness of breath. Historical: - Allergies: 15:15 No Known Drug Allergies; ll1 - PMHx: 15:15 chronic back pain; Hyperlipidemia; Hypertension; Seizures; ll1 - PSHx: 15:45 Appendectomy; ll1 - Immunization history:: Client reports having NOT received the Covid vaccine. Flu vaccine status is unknown. - Social history:: Smoking status: Patient reports the use of cigarette tobacco products, smokes one pack cigarettes per day. Screenin:22 Abuse screen: Denies threats or abuse. Denies injuries from another. Nutritional ph screening: No deficits noted. Tuberculosis screening: No symptoms or risk factors identified. Fall Risk None identified. Assessment: 17:00 General: Appears in no apparent distress. comfortable, well groomed, Behavior is calm, ph cooperative, appropriate for age, Denies fever. Pain: Complains of pain in back. Neuro: Level of Consciousness is awake, alert, obeys commands, Oriented to person, place, time, situation. Cardiovascular: Reports shortness of breath, Denies chest pain, Capillary refill < 3 seconds in bilateral fingers Patient's skin is warm and dry. Rhythm is regular. Respiratory: Reports shortness of breath on exertion cough that is productive, pain with cough Airway is patent Respiratory effort is even, unlabored, Respiratory pattern is regular. GI: No signs and/or symptoms were reported involving the gastrointestinal system. Derm: Skin is intact, Skin is pink, warm \T\ dry. Musculoskeletal: Circulation, motion, and sensation intact. Range of motion: intact in all extremities. Vital Signs: 15:42 BP 205 / 130; Pulse 106; Resp 20; Temp 97.7; Pulse Ox 85% ; Weight 56.7 kg; Height 5 ll1 ft. 2 in. (157.48 cm); Pain 0/10; 15:54 Pulse Ox 97% on 2 lpm NC; ll1 17:30 BP 185 / 96; Pulse 85; Resp 20; Pulse Ox 100% on Nebulizer Mask; ph 18:22 BP 185 / 96; Pulse 58; Resp 20; Pulse Ox 97% on 2 lpm NC; ph 21:07 BP 194 / 111; Pulse 95; Resp 18 S; Pulse Ox 99% on R/A; as6 15:42 Body Mass Index 22.86 (56.70 kg, 157.48 cm) ll1 ED Course: 15:05 Patient arrived in ED. rg4 15:15 Arm band placed on. ll1 15:45 Triage completed. ll1 15:48 aR Floyd PA is PHCP. [facility] 15:48 Zach Hernandez MD is Attending Physician. [facility] 16:04 Patient placed in an exam room, on a stretcher. ll1 16:45 Oliva Davis RN is Primary Nurse. ph 16:55 Initial lab(s) drawn, by ED staff, sent to lab. Inserted saline lock: 22 gauge in left ph antecubital area, using aseptic technique. Blood collected. 17:49 XRAY Chest (1 view) In Process Unspecified. EDMS 18:25 Milo Spicer is Hospitalizing Provider. [facility] 18:35 Patient has correct armband on for positive identification. Placed in gown. Bed in low ph position. Call light in reach. Side rails up X 1. electronic device monitor on. Pulse ox on. NIBP on. 20:11 Primary Nurse role handed off by Oliva Davis RN cs9 20:26 Steffi Olivia, RN is Primary Nurse. kd3 21:08 No provider procedures requiring assistance completed. Patient admitted, IV remains in as6 place. Administered Medications: 17:20 Drug: SOLU-Medrol (methylPrednisoLONE) 125 mg Route: IVP; Site: left antecubital; ph 19:20 Follow up: Response: No adverse reaction ph 17:20 Drug: Xopenex (levalbuterol) (3) 1.25 mg Route: Inhalation; ph 19:22 Follow up: Response: No adverse reaction ph 18:00 Drug: [place] (HYDROcodone-acetaminophen) 10 mg-325 mg 1 tabs Route: PO; ph 19:20 Follow up: Response: No adverse reaction ph 21:07 Drug: Rocephin (cefTRIAXone) 1 grams Route: IV; Rate: calculated rate; Site: right as6 antecubital; 21:09 Follow up: Response: No adverse reaction; IV Status: Completed infusion; IV Intake: [id number] Intake: 21:09 IV: 50ml; Total: 50ml. as6 Outcome: 18:26 Decision to Hospitalize by Provider. [facility] 21:08 Admitted to Med/surg accompanied by tech, via wheelchair, room 228, with chart. as6 21:08 Condition: stable 21:08 Instructed on the need for admit. 21:20 Patient left the ED. as6 Signatures: Dispatcher [employer] EDMS Ra Floyd PA PA Oliva Rincon, RN Mireya Humphreys ph rg4 Estuardo Figueroa RN RN michael1 Mary Beckford cs9 Aris Hoyos RN RN as6 Steffi Olivia, RN RN kd3 Corrections: (The following items were deleted from the chart) 15:46 15:42 Chief complaint: Patient states: SOB and cough for 2-3 weeks, getting worse. SOB ll1 with exertion was worse today. No fever. ll1
--- NOTE | 2021-09-11 18:27 | EDPHYS ---
Physician Documentation [facility] Name: Deann Bhatia Age: 60 yrs Sex: Female : 1960 Arrival Date: 09/11/2021 Time: 15:05 Bed 8 Private MD: SILVANA Physician Zach Hernandez HPI: 09/11 15:53 This 60 yrs old Female presents to ER via Ambulatory with complaints of Breathing jmm Difficulty. 15:53 The patient has shortness of breath at rest, with light activity. Onset: The jmm symptoms/episode began/occurred gradually, 3 week(s) ago. Duration: The symptoms are continuous, and are steadily getting worse. The patient's shortness of breath is aggravated by exertion, light activity. Associated signs and symptoms: Pertinent positives: non-productive cough, Pertinent negatives: chest pain. This is a 58-year-old female with history of chronic back pain, hyperlipidemia, hypertension, epilepsy the presents Emergency Department with complaints of progressively worsening shortness of breath over the past 2 to 3 weeks. Patient states she ran out of her medications about a month ago.. Historical: - Allergies: 15:15 No Known Drug Allergies; ll1 - PMHx: 15:15 chronic back pain; Hyperlipidemia; Hypertension; Seizures; ll1 - PSHx: 15:45 Appendectomy; ll1 - Immunization history:: Client reports having NOT received the Covid vaccine. Flu vaccine status is unknown. - Social history:: Smoking status: Patient reports the use of cigarette tobacco products, smokes one pack cigarettes per day. ROS: 15:53 Constitutional: Negative for fever, chills, and weight loss, Cardiovascular: Negative jmm for chest pain, palpitations, and edema. 15:53 Respiratory: Positive for shortness of breath. 15:53 All other systems are negative. Exam: 15:53 Constitutional: This is a well developed, well nourished patient who is awake, alert, jmm and in no acute distress. Head/Face: atraumatic. Eyes: EOMI, no conjunctival erythema appreciated ENT: Moist Mucus Membranes Neck: Trachea midline, Supple Chest/axilla: Normal chest wall appearance and motion. 15:53 Abdomen/GI: Non distended, soft Back: Normal ROM Skin: General appearance color normal MS/ Extremity: Moves all extremities, no obvious deformities appreciated, no edema noted to the lower extremities Neuro: Awake and alert Psych: Behavior is normal, Mood is normal, Patient is cooperative and pleasant 15:53 Cardiovascular: Rate: normal, Rhythm: regular, Pulses: no pulse deficits are appreciated. 15:53 Respiratory: mild respiratory distress is noted, Respirations: labored breathing, that is mild, Breath sounds: are clear throughout. Vital Signs: 15:42 BP 205 / 130; Pulse 106; Resp 20; Temp 97.7; Pulse Ox 85% ; Weight 56.7 kg; Height 5 ll1 ft. 2 in. (157.48 cm); Pain 0/10; 15:54 Pulse Ox 97% on 2 lpm NC; ll1 17:30 BP 185 / 96; Pulse 85; Resp 20; Pulse Ox 100% on Nebulizer Mask; ph 18:22 BP 185 / 96; Pulse 58; Resp 20; Pulse Ox 97% on 2 lpm NC; ph 21:07 BP 194 / 111; Pulse 95; Resp 18 S; Pulse Ox 99% on R/A; as6 15:42 Body Mass Index 22.86 (56.70 kg, 157.48 cm) ll1 MDM: 16:03 Patient medically screened. [facility] 18:25 Data reviewed: vital signs, nurses notes. Counseling: I had a detailed discussion with jose the patient and/or guardian regarding: the historical points, exam findings, and any diagnostic results supporting the discharge/admit diagnosis, lab results, radiology results, the need for further work-up and treatment in the hospital. ED course: I discussed the patient with Femi whom accepted the patient to Dr. Nation service.. 09/11 17:02 Order name: Basic Metabolic Panel; Complete Time: 17:29 EDMS 09/11 17:02 Order name: Liver (Hepatic) Function; Complete Time: 17:29 EDMS 09/11 17:02 Order name: Troponin High Sensitivity; Complete Time: 17:29 EDHI 09/11 17:02 Order name: NT PRO-BNP; Complete Time: 17:29 EDMS 09/11 17:02 Order name: Magnesium; Complete Time: 17:29 EDMS 09/11 17:04 Order name: CBC with Automated Diff; Complete Time: 17:11 EDHI 09/11 15:53 Order name: XRAY Chest (1 view); Complete Time: 18:04 [facility] 09/11 15:53 Order name: EKG; Complete Time: 17:35 [facility] 09/11 15:53 Order name: Cardiac monitoring; Complete Time: 16:36 [facility] 09/11 15:53 Order name: EKG - Nurse/Tech; Complete Time: 16:36 [facility] 09/11 15:53 Order name: IV Saline Lock; Complete Time: 16:36 [facility] 09/11 15:53 Order name: Labs collected and sent; Complete Time: 16:36 [facility] 09/11 15:53 Order name: O2 Per Protocol; Complete Time: 21:02 [facility] 09/11 15:53 Order name: O2 Sat Monitoring; Complete Time: 21:02 [facility] 09/11 17:04 Order name: Protime (+INR); Complete Time: 17:12 EDMS 09/11 17:04 Order name: COVID-19/FLU A+B; Complete Time: 17:43 EDMS Administered Medications: 17:20 Drug: SOLU-Medrol (methylPrednisoLONE) 125 mg Route: IVP; Site: left antecubital; ph 19:20 Follow up: Response: No adverse reaction ph 17:20 Drug: Xopenex (levalbuterol) (3) 1.25 mg Route: Inhalation; ph 19:22 Follow up: Response: No adverse reaction ph 18:00 Drug: [place] (HYDROcodone-acetaminophen) 10 mg-325 mg 1 tabs Route: PO; ph 19:20 Follow up: Response: No adverse reaction ph 21:07 Drug: Rocephin (cefTRIAXone) 1 grams Route: IV; Rate: calculated rate; Site: right as6 antecubital; 21:09 Follow up: Response: No adverse reaction; IV Status: Completed infusion; IV Intake: [id number] Disposition Summary: 09/11/21 18:26 Hospitalization Ordered Hospitalization Status: Inpatient Admission jm Provider: Milo Spicer Location: Telemetry/MedSurg (Inpatient) jmm Condition: Stable jmm Problem: new jmm Symptoms: have improved jmm Bed/Room Type: Standard [facility] Room Assignment: 228(09/11/21 19:52) dw Diagnosis - Shortness of breath jmm - Acute respiratory failure with hypoxia jmm Forms: - Medication Reconciliation Form jmm - SBAR form [facility] Addendum: 09/15/2021 18:37 Co-signature as Attending Physician, Zach Hernandez MD I agree with the assessment and c maguire plan of care. Signatures: Dispatcher [employer] EDMarcie Angeles, RN RN Zach Brannon MD MD cha Mickail, Joel, PA PA jmm Hall, Patricia, RN RN ph Henry, Estuardo, RN RN ll1 Aris Hoyos RN RN as6 Corrections: (The following items were deleted from the chart) 09/11 17:48 17:32 Chest Single View ordered. EDMS EDMS 18:08 17:35 BASIC METABOLIC PANEL+C.LAB.BRZ ordered. EDMS EDMS 18:08 17:35 HEPATIC FUNCTION+C.LAB.BRZ ordered. EDMS EDMS 18:08 17:35 MAGNESIUM+C.LAB.BRZ ordered. EDMS EDMS 18:08 17:35 PROBNP+C.LAB.BRZ ordered. EDMS EDMS 18:08 17:35 Troponin High Sensitivity+C.LAB.BRZ ordered. EDMS EDMS 18:09 17:35 CBC+H.LAB.BRZ ordered. EDMS EDMS 18:10 17:35 PROTIME (+INR)+COAG.LAB.BRZ ordered. EDMS EDMS 18:12 17:35 COVID-19/FLU A+B+MOL.LAB.BRZ ordered. EDMS EDMS 19:52 18:26 jose díaz
--- NOTE | 2021-09-11 19:33 | P.HP ---
Certification for Inpatient Patient admitted to: Observation With expected LOS: <2 Midnights Patient will require the following post-hospital care: None Practitioner: I am a practitioner with admitting privileges, knowledge of patient current condition, hospital course, and medical plan of care. Services: Services provided to patient in accordance with Admission requirements found in Title 42 Section 412.3 of the Code of Federal Regulations Patient History Date of Service: 09/12/21 Reason for admission: SHOB History of Present Illness: Patient is a 60-year-old female with past medical history of hypertension and chronic back pain who presented to the ED with 2 to 3 weeks of worsening shortness of breath. She states that she has not been able to refill her medications in 1 month due to her insurance. She reports that today the shortness of breath got so bad that she thought she was going to pass out. In the ED, labs within normal limits except for BNP of 3982. Chest x-ray showed Mild interstitial and airspace disease predominantly basilar in orientation with small effusions. This may be secondary to interstitial edema. Pneumonia within the differential. Patient was saturating 85 on room air upon presentation. She was put on 3 L nasal cannula, given a breathing treatment, Solu-Medrol, and Rocephin. Upon my assessment, patient states that she is breathing much better. Lungs clear to auscultation bilateral, no respiratory distress. ED provider wishes to admit patient for further observation. Allergies No Known Drug Allergies Allergy (Verified 03/31/17 04:08) Unknown Home medications list reviewed: Yes - Past Medical/Surgical History Diabetic: No -: Hypertension -: Dyslipidemia -: Seizure -: Chronic low back pain -: Appendectomy -: Tonsillectomy -: Abdominal surgery -: Morphine pump placement Psychosocial/ Personal History: Patient lives at home with family. - Family History Mother -: Diabetes Father -: Cancer - Social History Smoking Status: Current every day smoker Alcohol use: No CD- Drugs: No Caffeine use: Yes Place of Residence: Home Review of Systems Respiratory: Shortness of Breath Physical Examination - Physical Exam General: Alert, In no apparent distress, Oriented x3 HEENT: Atraumatic, PERRLA, Mucous membr. moist/pink, EOMI, Sclerae nonicteric Neck: Supple, 2+ carotid pulse no bruit, No LAD, Without JVD or thyroid abnormality Respiratory: Clear to auscultation bilaterally, Normal air movement Cardiovascular: Regular rate/rhythm, Normal S1 S2 Gastrointestinal: Normal bowel sounds, No tenderness Musculoskeletal: No tenderness Integumentary: No rashes Neurological: Normal speech, Normal strength at 5/5 x4 extr, Normal tone, Normal affect - Studies Laboratory Data (last 24 hrs) 09/11/21 16:53: PT 10.7, INR 0.97 09/11/21 16:53: WBC 6.8, Hgb 14.0, Hct 40.6, Plt Count 197 09/11/21 16:53: Sodium 141, Potassium 3.6, BUN 14, Creatinine 0.84, Glucose 85, Magnesium 2.3, Total Bilirubin 0.4, AST 26, ALT 30, Alkaline Phosphatase 83 09/11/21 15:53: PT Cancelled, INR Cancelled 09/11/21 15:53: WBC Cancelled, Hgb Cancelled, Hct Cancelled, Plt Count Cancelled 09/11/21 15:53: Sodium Cancelled, Potassium Cancelled, BUN Cancelled, Creatinine Cancelled, Glucose Cancelled, Magnesium Cancelled, Total Bilirubin Cancelled, AST Cancelled, ALT Cancelled, Alkaline Phosphatase Cancelled Assessment and Plan - Problems (Diagnosis) (1) Shortness of breath Current Visit: Yes Status: Acute (2) Acute respiratory failure Current Visit: Yes Status: Acute Qualifiers: Respiratory failure complication: hypoxia Qualified Code(s): J96.01 - Acute respiratory failure with hypoxia (3) HTN (hypertension) Current Visit: Yes Status: Chronic Qualifiers: Hypertension type: primary hypertension Qualified Code(s): I10 - Essential (primary) hypertension - Plan -Patient's shortness of breath likely due to medication noncompliance. Patient does see Dr. Banks outpatient. Will consult, appreciate recommendations. -continue breathing treatments as needed and Solu-Medrol. -Patient has been hypertensive in the 180s-200s systolic. She did not recall her medications nor could the nursing staff obtain them from pharmacy because it was after hours. Metoprolol and hydralazine in the meantime. -Patient reports she has chronic back pain. She is trying to get a medication regimen for her with her primary care. Pain medications ordered as needed. -Patient was requiring 3 L of oxygen nasal cannula upon presentation to the ED. May need home oxygen upon discharge. -Chest x-ray was indeterminate. Consider chest CT if symptoms do not improve. -Lovenox for DVT prophylaxis Discharge Plan: Home Plan to discharge in: 24 Hours - Advance Directives Does patient have a Living Will: Yes Does patient have a Durable POA for Healthcare: Yes - Code Status/Comfort Care Code Status Assessed: Yes (Full) Critical Care: No Time Spent Managing Pts Care (In Minutes): 70
[2021-09-11] MEDS ORDERED: CEFTRIAXONE 1000 MG/VIAL ONE (21:03)
[2021-09-11] MEDS ORDERED: NA CHLORIDE 0.9% 50 ML ONE (21:03)
[2021-09-11] MEDS ORDERED: ALBUTEROL 2.5 MG/3 ML NEB SOL NEB PRN (21:34)
[2021-09-11] MEDS ORDERED: IPRATROPIUM BROM 0.5MG/2.5ML NEB PRN (21:34)
[2021-09-11] MEDS ORDERED: ZOLPIDEM TARTRATE 5 MG TABLET PO PRN (21:34)
[2021-09-11] MEDS ORDERED: ONDANSETRON 4 MG/2 ML VIAL IV PRN (21:34)
[2021-09-11] MEDS: HYDRALAZINE HCL 20 MG/ML VIAL IV PRN (22:08)
[2021-09-11] MEDS: MORPHINE 2 MG/ML SYR IV PRN (22:09)
[2021-09-11] MEDS: METHYLPREDNISOLONE 125 MG INJ IV SCH (23:40)
[2021-09-12 00:01] VITALS: BMI 22.8
[2021-09-12] MEDS ORDERED: METOPROLOL TAR 25 MG TAB PO ONE (00:06)
[2021-09-12 01:02] LABS: Urine Appearance CLEAR (Clear); Urine Bilirubin NEGATIVE (Negative); Urine Blood NEGATIVE (Negative); Urine Color YELLOW (Yellow); Urine Glucose NEGATIVE (Negative); Urine Protein NEGATIVE (Negative); Urine Urobilinogen 0.2 mg/dL (0.2-1.0)
[2021-09-12 01:06] LABS: Urine Microscopic Reflex NO UMIC
[2021-09-12] MEDS: HYDROCODONE/APAP 10/325 TAB PO PRN ×2 (01:18→08:53)
[2021-09-12] MEDS: MORPHINE 2 MG/ML SYR IV PRN ×3 (02:20→12:18)
[2021-09-12 04:54] LABS: Thyroid Stimulating Hormone 0.301 uIU/mL (0.360-3.740)
[2021-09-12] MEDS: HYDRALAZINE HCL 20 MG/ML VIAL IV PRN (05:28)
[2021-09-12] MEDS: METHYLPREDNISOLONE 125 MG INJ IV SCH ×2 (05:28→12:18)
[2021-09-12 08:54] VITALS: O2SAT 98
[2021-09-12] MEDS ORDERED: ENOXAPARIN 40 MG/0.4 ML SQ SCH (09:00)
--- NOTE | 2021-09-12 09:37 | EKG ---
Test Date: 2021-09-11 Test Time: 16:44:47 Mold Design Engineer: GRIS MEASUREMENT RESULTS: Intervals: Rate: 91 MN: 170 QRSD: 132 QT: 422 QTc: 519 [place]: P: 75 MN: 170 QRS: 82 T: 71 INTERPRETIVE STATEMENTS: Normal sinus rhythm Left bundle branch block Abnormal ECG Compared to ECG 11/18/2019 22:16:34 Left bundle-branch block now present Myocardial infarct finding no longer present Electronically Signed On 09-12-21 09:35:35 CDT by Wesly Duvall
[2021-09-12] MEDS ORDERED: AMLODIPINE 10 MG TAB PO SCH (09:48)
--- NOTE | 2021-09-12 12:31 | P.CNS ---
Date of Consult: 09/12/21 Reason for Consult: COPD exacerbation Chief Complaint: Shortness of breath History of Present Illness: Patient is 60 years of age heavy smoker admitted with acute onset of worsening shortness of breath she also ran out of her Breztri inhaler also borrowed an inhaler from her friend doing much better since admission complaining of cough with white sputum Allergies No Known Drug Allergies Allergy (Verified 03/31/17 04:08) Unknown Home Medications: Budesonide/Glycopyr/Formoterol [Breztri Aerosphere Inhaler] 5.9 gm IH BID 30 Days #120 [email or web address] 09/12/21 Budesonide/Glycopyr/Formoterol [Breztri Aerosphere Inhaler] 10.7 gm IH BID 30 Days [email or web address] 09/12/21 predniSONE [Deltasone] 10 mg PO BID #20 tab 09/12/21 - Past Medical/Surgical History Diabetic: No -: Hypertension -: Dyslipidemia -: Seizure -: Chronic low back pain -: COPD -: Appendectomy -: Tonsillectomy -: Abdominal surgery -: Morphine pump placement Psychosocial/ Personal History: Patient lives at home with family. - Family History Mother Medical History: Diabetes Father Medical History: Cancer - Social History Smoking Status: Current every day smoker Alcohol use: No CD- Drugs: No Caffeine use: Yes Place of Residence: Home Review of Systems 10-point ROS is otherwise unremarkable General: Weakness Respiratory: Cough, Shortness of Breath Physical Examination Temp Pulse Resp BP Pulse Ox 97.2 F 88 24 H 172/108 H 98 09/12/21 08:00 09/12/21 10:40 09/12/21 12:18 09/12/21 10:40 09/12/21 12:18 General: Alert, In no apparent distress, Oriented x3 Respiratory: Clear to auscultation bilaterally, Normal air movement Cardiovascular: No edema, Normal pulses Gastrointestinal: Normal bowel sounds, Soft and benign Laboratory Data (last 24 hrs) 09/11/21 16:53: PT 10.7, INR 0.97 09/11/21 16:53: WBC 6.8, Hgb 14.0, Hct 40.6, Plt Count 197 09/11/21 16:53: Sodium 141, Potassium 3.6, BUN 14, Creatinine 0.84, Glucose 85, Magnesium 2.3, Total Bilirubin 0.4, AST 26, ALT 30, Alkaline Phosphatase 83 09/11/21 15:53: PT Cancelled, INR Cancelled 09/11/21 15:53: WBC Cancelled, Hgb Cancelled, Hct Cancelled, Plt Count Cancelled 09/11/21 15:53: Sodium Cancelled, Potassium Cancelled, BUN Cancelled, Creatinine Cancelled, Glucose Cancelled, Magnesium Cancelled, Total Bilirubin Cancelled, AST Cancelled, ALT Cancelled, Alkaline Phosphatase Cancelled - Problems (1) COPD exacerbation Current Visit: Yes Status: Acute Plan: Patient is 60 years of age admitted with COPD exacerbation heavy smoker refuses to quit discharge home on Breztri prednisone and a short acting beta agonist labs all reviewed and unremarkable bibasilar interstitial changes oxygenation satisfactory blood pressure still elevated no clinical evidence of sepsis follow-up with me in 2 weeks
[2021-09-12 12:40] VITALS: BP 145/87; TEMP 97.4
--- NOTE | 2021-09-12 13:01 | P.DS ---
Admission Date: 09/11/21 Discharge Date: 09/12/21 Disposition: ROUTINE DISCHARGE Discharge Condition: FAIR Reason for Admission: Shortness of breath - Problems (1) COPD exacerbation Current Visit: Yes Status: Acute (2) HTN (hypertension) Current Visit: Yes Status: Chronic Qualifiers: Hypertension type: primary hypertension Qualified Code(s): I10 - Essential (primary) hypertension (3) Acute respiratory failure with hypoxia Current Visit: Yes Status: Acute Brief History of Present Illness: Patient is a 60-year-old female with past medical history of hypertension and chronic back pain who presented to the ED with 2 to 3 weeks of worsening shortness of breath. She stated that she has not been able to refill her medications in 1 month due to her insurance. She reported shortness of breath got so bad that she thought she was going to pass out. In the ED, labs within normal limits except for BNP of 3982. Chest x-ray showed Mild interstitial and airspace disease predominantly basilar in orientation with small effusions. This may be secondary to interstitial edema. Pneumonia within the differential. Patient was saturating 85 on room air upon presentation. She was put on 3 L nasal cannula, given a breathing treatment, Solu-Medrol, and Rocephin. Her symptoms improved after the breathing treatment and IV steroid. Patient placed in observation for further management. Hospital Course: She was treated with IV Solu-Medrol, scheduled bronchodilators for COPD exacerbation. Her blood pressure was also elevated. Patient was started on amlodipine. BP spikes were treated with IV hydralazine. Patient respiratory symptoms improved and was weaned off oxygen. She is currently tolerating room air with 98% oxygen saturation. Her blood pressure has also improved. She could not remember her home antihypertensives. Patient seen in consultation by pulmonary-Dr. Banks who has prescribed inhalers and oral prednisone. At this point patient wishes to go home. She is discharged with amlodipine for blood pressure control and informed to follow-up with her PCP CANDICE. Vital Signs/Physical Exam: Temp Pulse Resp BP Pulse Ox 97.4 F 76 24 H 145/87 H 98 09/12/21 12:00 09/12/21 12:00 09/12/21 12:18 09/12/21 12:00 09/12/21 12:18 General: Alert, In no apparent distress, Oriented x3 HEENT: Mucous membr. moist/pink, Sclerae nonicteric Neck: JVD not distended Respiratory: Clear to auscultation bilaterally, Normal air movement Cardiovascular: No edema, Regular rate/rhythm, Normal S1 S2, No murmurs Gastrointestinal: Normal bowel sounds, Soft and benign, Non-distended, No tenderness Musculoskeletal: No swelling Integumentary: No rashes, No cyanosis Neurological: Normal speech, Normal strength at 5/5 x4 extr Laboratory Data at Discharge: WBC 6.8 K/uL (4.3-10.9) 09/11/21 16:53 Hgb 14.0 g/dL (12.0-15.0) 09/11/21 16:53 Hct 40.6 % (36.0-45.0) 09/11/21 16:53 Plt Count 197 K/uL (152-406) 09/11/21 16:53 PT 10.7 SECONDS (9.5-12.5) 09/11/21 16:53 INR 0.97 09/11/21 16:53 Sodium 141 mmol/L (136-145) 09/11/21 16:53 Potassium 3.6 mmol/L (3.5-5.1) 09/11/21 16:53 BUN 14 mg/dL (7-18) 09/11/21 16:53 Creatinine 0.84 mg/dL (0.55-1.3) 09/11/21 16:53 Glucose 85 mg/dL (74-106) 09/11/21 16:53 Magnesium 2.3 mg/dL (1.8-2.4) 09/11/21 16:53 Total Bilirubin 0.4 mg/dL (0.2-1.0) 09/11/21 16:53 AST 26 U/L (15-37) 09/11/21 16:53 ALT 30 U/L (12-78) 09/11/21 16:53 Alkaline Phosphatase 83 U/L (45-117) 09/11/21 16:53 Triglycerides 43 mg/dL (<150) 09/12/21 04:15 Cholesterol 195 mg/dL (<200) 09/12/21 04:15 HDL Cholesterol 106 mg/dL (40-60) H 09/12/21 04:15 Cholesterol/HDL Ratio 1.84 09/12/21 04:15 Home Medications: Albuterol Inhaler [Ventolin Inhaler] 2 puff IH Q6H PRN #240 [email or web address] 09/12/21 Amlodipine [Norvasc*] 10 mg PO DAILY #30 tab 09/12/21 Budesonide/Glycopyr/Formoterol [Breztri Aerosphere Inhaler] 5.9 gm IH BID 30 Days #120 [email or web address] 09/12/21 Budesonide/Glycopyr/Formoterol [Breztri Aerosphere Inhaler] 10.7 gm IH BID 30 Days [email or web address] 09/12/21 predniSONE [Deltasone] 10 mg PO BID #20 tab 09/12/21 New Medications: Budesonide/Glycopyr/Formoterol [Breztri Aerosphere Inhaler] 10.7 gm IH BID 30 Days [email or web address] Budesonide/Glycopyr/Formoterol [Breztri Aerosphere Inhaler] 5.9 gm IH BID 30 Days #120 [email or web address] Amlodipine [Norvasc*] 10 mg PO DAILY #30 tab predniSONE [Deltasone] 10 mg PO BID #20 tab Albuterol Inhaler [Ventolin Inhaler] 2 puff IH Q6H PRN #240 [email or web address] PRN Reason: Shortness Of Breath Diet: AHA Activity: Ad matthias Followup: Bailey Salomon DO [Primary Care Provider] - 1 Week
--- NOTE | 2021-09-13 07:09 | ECHO ---
HEIGHT: 5 ft 2 in WEIGHT: 125 lb 0 oz DATE OF STUDY: 09/12/[address]: pham bourne 2-DIMENSIONAL: YES M.MODE: YES DOPPLER: YES COLOR FLOW: YES TDS: NO PORTABLE: YES DEFINITY: NO BUBBLE STUDY: NO DIAGNOSIS: ELEVATED BLOOD PRESSURE, INTERSTITIAL FLUID CARDIAC HISTORY: CATHERIZATION: NO SURGERY: NO PROSTHETIC VALVE: NO PACEMAKER: NO MEASUREMENTS (cm) DIASTOLIC (NORMALS) SYSTOLIC (NORMALS) IVSd 1.1 (0.6-1.2) LA Diam 2.3 (1.9-4.0) LVEF 67% LVIDd 4.2 (3.5-5.7) LVIDs 2.6 (2.0-3.5) %FS 37% LVPWd 1.3 (0.6-1.2) Ao Diam 2.5 (2.0-3.7) 2 DIMENSIONAL ASSESSMENT: RIGHT ATRIUM: NORMAL LEFT ATRIUM: NORMAL RIGHT VENTRICLE: NORMAL LEFT VENTRICLE: NORMAL TRICUSPID VALVE: NORMAL MITRAL VALVE: MITRAL ANNULAR CALCIFICATION PULMONIC VALVE: NORMAL AORTIC VALVE: NORMAL PERICARDIAL EFFUSION: NONE AORTIC ROOT: NORMAL LEFT VENTRICULAR WALL MOTION: NORMAL. DOPPLER/COLOR FLOW: NORMAL. COMMENTS: TECHNICALLY DIFFICULT STUDY. MITRAL ANNULAR CALCIFICATION. NORMAL LEFT VENTRICULAR SIZE AND FUNCTION. NO EFFUSION. TECHNOLOGIST: BUDDY WOLFE
== END 2021-09-12 13:35 | disposition home or self-care (01) ==
LOC: ER 15:02 → ERHOLD 19:28 → 2ND 20:03
PROVIDERS: ADMIT Internal Medicine; ATTEND Internal Medicine
DX: J44.1 Chronic obstructive pulmonary disease with (acute) exacerbation (principal); J96.01 Acute respiratory failure with hypoxia; I10 Essential (primary) hypertension; M54.9 Dorsalgia, unspecified; G89.29 Other chronic pain; F17.210 Nicotine dependence, cigarettes, uncomplicated; Z91.14 Patient's other noncompliance with medication regimen; E78.5 Hyperlipidemia, unspecified; Z20.822 Contact with and (suspected) exposure to COVID-19; Z83.3 Family history of diabetes mellitus; Z80.9 Family history of malignant neoplasm, unspecified
CPT/HCPCS: 93005; 93306; 85025; 80048; 36415; 83735; 85610; 80061; 80076; 84443; 81003; 84484; 84439; 83880; 0240U; 71045; 94760 ×2; 99285; J0360 ×2; J1650; J2270 ×4; J2930 ×4; J2405; G0378 ×3

== ENCOUNTER 2022-05-27 08:31 | Emergency (ER) | payer OTHER ==
--- OUTSIDE RECORDS SUMMARY | 2022-05-27 08:36 | XMS REPORT | Continuity of Care Document ---
:1960 Author Organization [facility] t Address [address] [place] [address] Care Team Providers Name Role Phone Sharpless Primary Care Physician Bailey Salomon Attending Clinician Unavailable CALLUM CERRATO Attending Clinician Unavailable CHRISTELLE GARDNER Admitting Clinician Unavailable Payers Payer Name Policy Type Policy Number Effective Date Expiration Date S ource MEDICARE MB [id number] 2008 [facility] NOVITAS 00:00: [facility] C1 [id number] [facility] Problems Condition Condition Condition Status Onset Resolution Last Treating Co mments Source Name Details Category Date Date Treatment Clinician Date Suicidal Suicidal Disease [facility] Alcohol Alcohol Disease Active [facility] intoxic[facility] intoxicati 08-29 Randee kes on on 00:00: Medical 00 [place] Fall, Fall, Disease Active [facility] initial [facility] encounter encounter 00:00: Medi yoan 00 [place] Allergic Allergic Problem Commo n rhinitis rhinitis [facility] Hypothyroi Hypothyroi Problem C ommon dism dism [facility] Constipati Constipati Problem C ommon on on [facility] Hyperlipid Hyperlipid Problem C ommon emia emia [facility] [id number] Depression Problem Com mon with Spirit anxiety [facility] Hypotensio Hypotensio Problem C ommon n n Spirit [facility] Obesity Mild Problem Common obesity [facility] Seizure Seizures Problem Common [facility] Localized Localized Problem Com mon swelling, swelling, Spir it mass and mass and - CHI lump, neck lump, neck [facility] [id number] Primary Problem Common insomnia [facility] [id number] Localized Problem Comm on osteoporos Spirit is, - [facility] unspecifie 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 [facility] Nicotine Nicotine Problem Commo n dependence dependence Sp wanda [facility] Vitamin D Vitamin D Problem Com mon deficiency deficiency [facility] Nausea and Intractabl Problem C ommon vomiting e vomiting Sp[facility] it [facility] type [facility] [id number] Gastroesop Problem Co mmon hageal [facility] reflux - [facility] disease [facility] esophagiti Medica l s [place] [id number] Urinary Problem Commo n frequency [facility] Essential Benign Problem Common hypertensi essential Spi rit on HTN [facility] [id number] Vomiting Problem Com mon without Spirit nausea, - [facility] intractabi [facility] vomiting Medical not Center specified, unspecifie d vomiting type Tobacco Cigarette Problem Commo n user nicotine [facility] dependence - [facility] without complicati [facility] Epigastric Epigastric Problem C ommon pain pain [facility] Abnormal Abnormal Problem Commo n weight weight Spirit loss loss [facility] Allergies, Adverse Reactions, Alerts Allergy Allergy Status Severity Reaction(s) Onset Inactive Treating Comm ents Source Name Type Date Date Clinician NO KNOWN Allergy Active [facility] morphine morphine Active nausea Common [facility] Social History Social Habit Start Date Stop Date Quantity Comments Source History of Current Smoker [facility] - Tobacco Use [facility] Alcohol intake 2016-08-28 2016-08-28 Current drinker [facility] 00:00:00 00:00:00 of [facility] (finding) Sex Assigned At [birth year] [facility] 00:00:00 00:00:00 Medical Center Smoking Status Start Date Stop Date Source Current Smoker 2022-01-16 00:00:00 [facility] Medications Ordered Filled Start Stop Current Ordering Indication Dosage Frequency Signature Comments Components Source Medication Medication Date Date Medication? Clinician (SIG) Name Name Nystatin Nystatin 2020-06- No 1{appli BID Nystatin [id number] 2-04 02 cation_ [id number] UNIT/GM UNIT/GM 00:00: 00:00 to_affe UNIT/GM 00 :00 cted_ar ea} Triamcinolo Triamcinolo 2020-0 Yes Na Salomon 1 Common ne ne 5-08 applicatio Spirit Acetonide Acetonide 00:00: n to - C HI 00 affected [facility] Triamcinolo Triamcinolo 2020-0 No 1{appli BID Triamcinol ne ne 5-08 cation_ one Acetonide Acetonide 00:00: to_affe Acetonide 0.1 % 0.1 % 00 cted_ar 0.1 % ea} Triamcinolo Triamcinolo 2020-0 No 1{appli BID Triamcinol ne ne 5-08 cation_ one Acetonide Acetonide 00:00: to_affe Acetonide 0.1 % 0.1 % 00 cted_ar 0.1 % ea} Triamcinolo Triamcinolo 2020-0 No 1{appli BID Triamcinol ne ne 5-08 cation_ one Acetonide Acetonide 00:00: to_affe Acetonide 0.1 % 0.1 % 00 cted_ar 0.1 % ea} Triamcinolo Triamcinolo 2020-0 No 1{appli BID Triamcinol ne ne 5-08 cation_ one Acetonide Acetonide 00:00: to_affe Acetonide 0.1 % 0.1 % 00 cted_ar 0.1 % ea} Triamcinolo Triamcinolo 2020-0 No 1{appli BID Triamcinol ne ne 5-08 cation_ one Acetonide Acetonide 00:00: to_affe Acetonide 0.1 % 0.1 % 00 cted_ar 0.1 % ea} Triamcinolo Triamcinolo 2020-0 No 1{appli BID Triamcinol ne ne 5-08 cation_ one Acetonide Acetonide 00:00: to_affe Acetonide 0.1 % 0.1 % 00 cted_ar 0.1 % ea} Triamcinolo Triamcinolo 2020-0 No 1{appli BID Triamcinol ne ne 5-08 cation_ one Acetonide Acetonide 00:00: to_affe Acetonide 0.1 % 0.1 % 00 cted_ar 0.1 % ea} Triamcinolo Triamcinolo 2020-0 No 1{appli BID Triamcinol ne ne 5-08 cation_ one Acetonide Acetonide 00:00: to_affe Acetonide 0.1 % 0.1 % 00 cted_ar 0.1 % ea} Triamcinolo Triamcinolo 2020-0 No 1{appli BID Triamcinol ne ne 5-08 cation_ one Acetonide Acetonide 00:00: to_affe Acetonide 0.1 % 0.1 % 00 cted_ar 0.1 % ea} Metoprolol Metoprolol 2020-0 Yes Na Salomon 1 tablet Common Succinate Succinate 1-20 Spiri t ER ER 00:00: - [facility] 00 [facility] Metoprolol Metoprolol 2020-0 No 1{table QD Metoprolol Succinate Succinate 1-20 t} Succinate ER 25 MG ER 25 MG 00:00: ER 25 MG 00 Metoprolol Metoprolol 2020-0 No 1{table QD Metoprolol Succinate Succinate 1-20 t} Succinate ER 25 MG ER 25 MG 00:00: ER 25 MG 00 Metoprolol Metoprolol 2020-0 No 1{table QD Metoprolol Succinate Succinate 1-20 t} Succinate ER 25 MG ER 25 MG 00:00: ER 25 MG 00 Metoprolol Metoprolol 2020-0 No 1{table QD Metoprolol Succinate Succinate 1-20 t} Succinate ER 25 MG ER 25 MG 00:00: ER 25 MG 00 Metoprolol Metoprolol 2020-0 No 1{table QD Metoprolol Succinate Succinate 1-20 t} Succinate ER 25 MG ER 25 MG 00:00: ER 25 MG 00 Metoprolol Metoprolol 2020-0 No 1{table QD Metoprolol Succinate Succinate 1-20 t} Succinate ER 25 MG ER 25 MG 00:00: ER 25 MG 00 Xanax Xanax 2018-06 Yes Na Salomon 1 tablet Comm on 2-16 [facility] 00:00: - [facility] 00 [facility] Xanax 0.5 Xanax 0.5 2018-06 No 1{table BID Xanax 0.5 MG MG 2-16 t} MG 00:00: 00 Xanax 0.5 Xanax 0.5 2018-06 No 1{table BID Xanax 0.5 MG MG 2-16 t} MG 00:00: 00 Xanax 0.5 Xanax 0.5 2018-06 No 1{table BID Xanax 0.5 MG MG 2-16 t} MG 00:00: 00 Xanax 0.5 Xanax 0.5 2018-06 No 1{table BID Xanax 0.5 MG MG 2-16 t} MG 00:00: 00 Xanax 0.5 Xanax 0.5 2018-06 No 1{table BID Xanax 0.5 MG MG 2-16 t} MG 00:00: 00 Xanax 0.5 Xanax 0.5 2018-06 No 1{table BID Xanax 0.5 MG MG 2-16 t} MG 00:00: 00 Xanax 0.5 Xanax 0.5 2018-06 No 1{table BID Xanax 0.5 MG MG 2-16 t} MG 00:00: 00 Xanax 0.5 Xanax 0.5 2018-06 No 1{table BID Xanax 0.5 MG MG 2-16 t} MG 00:00: 00 Xanax 0.5 Xanax 0.5 2018-06 No 1{table BID Xanax 0.5 MG MG 2-16 t} MG 00:00: 00 cholecalcif Yes 5000U Q7D Take 5,[address] [facility]le, 3-28 Units by [facility] vitamin D3, 14:35: mouth once Medical 5,000 unit 17 a week. Center Tab UNKNOWN Yes Blood [facility] 3-28 pressure [facility] 14:35: med does Medical 17 not know Center name nor dose . traZODone 2017-0 Yes 50mg QD Take [address] [facility]DESY[facility] 3-28 [facility] MG 14:35: nightly Medical tablet 17 Does not Center know dose . Levothyroxi Levothyroxi Yes Na Salomon 1 tablet Common ne Sodium ne Sodium on an Spir it empty - [facility] stomach in [facility] Furosemide Furosemide Yes Na Salomon 1 tablet Common [facility] Cymbalta Cymbalta Yes Na Salomon 1 capsule Common [facility] Cozaar Cozaar Yes Na Salomon 1 tablet Comm on [facility] Pravastatin Pravastatin Yes Na Salomon 1 tablet Common Sodium Sodium [facility] Omeprazole Omeprazole Yes Na Salomon 1 capsule Common [facility] ProAir HFA ProAir HFA Yes Na Salomon 1 puff as Common needed [facility] Ambien Ambien Yes Na Salomon 1 tablet Comm on at bedtime Spirit as needed [facility] Phenytoin Phenytoin Yes Na Salomon not Co mmon defined [facility] Furosemide Furosemide Yes Na Salomon 1 tablet Common [facility] Advair Advair Yes Na Salomon 1 puff Common Diskus Diskus [facility] Dilaudid Dilaudid Yes Na Salomon 1 tablet Common as needed [facility] Trazodone Trazodone Yes Na Salomon 1 tablet Common HCl HCl at bedtime [facility] as needed [facility] Potassium Potassium Yes Na Salomon not Co mmon defined [facility] Dilantin Dilantin Yes Na Salomon 5 capsule Common [facility] Amitiza Amitiza Yes Na Salomon 1 capsule C ommon with food [facility] and water [facility] Phenytoin Phenytoin No Phenytoin Potassium Potassium No Potassium Dilantin Dilantin No 5{capsu Dilantin 100 MG 100 MG le} 100 MG Furosemide Furosemide No 1{table QD Furosemide 80 MG 80 MG t} 80 MG Dilaudid 4 Dilaudid 4 No 1{table 6xD Dilaudid 4 MG MG t_as_ne MG eded} Omeprazole Omeprazole No 1{capsu QD Omeprazole 40 MG 40 MG le} 40 MG Furosemide Furosemide No 1{table QD Furosemide 40 MG 40 MG t} 40 MG ProAir HFA ProAir HFA No 1{puff_ QID ProAir HFA 108 (90 108 (90 as_need 108 (90 Base) Base) ed} Base) MCG/ACT MCG/ACT MCG/ACT Ambien 10 Ambien 10 No 1{table QD Ambien 10 MG MG t_at_be MG dtime_a s_neede d} Levothyroxi Levothyroxi No QD Levothyrox ne Sodium ne Sodium ine Sodium 88 MCG 88 MCG 88 MCG traZODone traZODone No 1{table QD traZODone HCl 50 MG HCl 50 MG t_at_be HCl 50 MG dtime_a s_neede d} Cymbalta 60 Cymbalta 60 No 1{capsu QD Cymbalta MG MG le} 60 MG Pravastatin Pravastatin No 1{table QD Pravastati Sodium 20 Sodium 20 t} n Sodium MG MG 20 MG Cozaar 100 Cozaar 100 No 1{table QD Cozaar 100 MG MG t} MG Phenytoin Phenytoin No Phenytoin Potassium Potassium No Potassium Dilantin Dilantin No 5{capsu Dilantin 100 MG 100 MG le} 100 MG Advair Advair No 1{puff} BID Advair Diskus Diskus Diskus 250-50 250-50 250-50 MCG/DOSE MCG/DOSE MCG/DOSE Furosemide Furosemide No 1{table QD Furosemide 80 MG 80 MG t} 80 MG Dilaudid 4 Dilaudid 4 No 1{table 6xD Dilaudid 4 MG MG t_as_ne MG eded} Levothyroxi Levothyroxi No QD Levothyrox ne Sodium ne Sodium ine Sodium 88 MCG 88 MCG 88 MCG Furosemide Furosemide No 1{table QD Furosemide 40 MG 40 MG t} 40 MG Ambien 10 Ambien 10 No 1{table QD Ambien 10 MG MG t_at_be MG dtime_a s_neede d} Potassium Potassium No Potassium Cozaar 100 Cozaar 100 No 1{table QD Cozaar 100 MG MG t} MG traZODone traZODone No 1{table QD traZODone HCl 50 MG HCl 50 MG t_at_be HCl 50 MG dtime_a s_neede d} ProAir HFA ProAir HFA No 1{puff_ QID ProAir HFA 108 (90 108 (90 as_need 108 (90 Base) Base) ed} Base) MCG/ACT MCG/ACT MCG/ACT Pravastatin Pravastatin No 1{table QD Pravastati Sodium 20 Sodium 20 t} n Sodium MG MG 20 MG Omeprazole Omeprazole No 1{capsu QD Omeprazole 40 MG 40 MG le} 40 MG Phenytoin Phenytoin No Phenytoin Cymbalta 60 Cymbalta 60 No 1{capsu QD Cymbalta MG MG le} 60 MG Dilantin Dilantin No 5{capsu Dilantin 100 MG 100 MG le} 100 MG Advair Advair No 1{puff} BID Advair Diskus Diskus Diskus 250-50 250-50 250-50 MCG/DOSE MCG/DOSE MCG/DOSE Furosemide Furosemide No 1{table QD Furosemide 80 MG 80 MG t} 80 MG Dilaudid 4 Dilaudid 4 No 1{table 6xD Dilaudid 4 MG MG t_as_ne MG eded} Levothyroxi Levothyroxi No QD Levothyrox ne Sodium ne Sodium ine Sodium 88 MCG 88 MCG 88 MCG Furosemide Furosemide No 1{table QD Furosemide 40 MG 40 MG t} 40 MG Ambien 10 Ambien 10 No 1{table QD Ambien 10 MG MG t_at_be MG dtime_a s_neede d} Potassium Potassium No Potassium Cozaar 100 Cozaar 100 No 1{table QD Cozaar 100 MG MG t} MG traZODone traZODone No 1{table QD traZODone HCl 50 MG HCl 50 MG t_at_be HCl 50 MG dtime_a s_neede d} ProAir HFA ProAir HFA No 1{puff_ QID ProAir HFA 108 (90 108 (90 as_need 108 (90 Base) Base) ed} Base) MCG/ACT MCG/ACT MCG/ACT Pravastatin Pravastatin No 1{table QD Pravastati Sodium 20 Sodium 20 t} n Sodium MG MG 20 MG Omeprazole Omeprazole No 1{capsu QD Omeprazole 40 MG 40 MG le} 40 MG Phenytoin Phenytoin No Phenytoin Cymbalta 60 Cymbalta 60 No 1{capsu QD Cymbalta MG MG le} 60 MG Dilantin Dilantin No 5{capsu Dilantin 100 MG 100 MG le} 100 MG Advair Advair No 1{puff} BID Advair Diskus Diskus Diskus 250-50 250-50 250-50 MCG/DOSE MCG/DOSE MCG/DOSE Furosemide Furosemide No 1{table QD Furosemide 80 MG 80 MG t} 80 MG Dilaudid 4 Dilaudid 4 No 1{table 6xD Dilaudid 4 MG MG t_as_ne MG eded} Furosemide Furosemide No 1{table QD Furosemide 40 MG 40 MG t} 40 MG Cozaar 100 Cozaar 100 No 1{table QD Cozaar 100 MG MG t} MG ProAir HFA ProAir HFA No 1{puff_ QID ProAir HFA 108 (90 108 (90 as_need 108 (90 Base) Base) ed} Base) MCG/ACT MCG/ACT MCG/ACT Ambien 10 Ambien 10 No 1{table QD Ambien 10 MG MG t_at_be MG dtime_a s_neede d} Pravastatin Pravastatin No 1{table QD Pravastati Sodium 20 Sodium 20 t} n Sodium MG MG 20 MG Phenytoin Phenytoin No Phenytoin Dilantin Dilantin No 5{capsu Dilantin 100 MG 100 MG le} 100 MG Advair Advair No 1{puff} BID Advair Diskus Diskus Diskus 250-50 250-50 250-50 MCG/DOSE MCG/DOSE MCG/DOSE traZODone traZODone No 1{table QD traZODone HCl 50 MG HCl 50 MG t_at_be HCl 50 MG dtime_a s_neede d} Cymbalta 60 Cymbalta 60 No 1{capsu QD Cymbalta MG MG le} 60 MG Potassium Potassium No Potassium Omeprazole Omeprazole No 1{capsu QD Omeprazole 40 MG 40 MG le} 40 MG Levothyroxi Levothyroxi No QD Levothyrox ne Sodium ne Sodium ine Sodium 88 MCG 88 MCG 88 MCG Phenytoin Phenytoin No Phenytoin Ambien 10 Ambien 10 No 1{table QD Ambien 10 MG MG t_at_be MG dtime_a s_neede d} Omeprazole Omeprazole No 1{capsu QD Omeprazole 40 MG 40 MG le} 40 MG Advair Advair No 1{puff} BID Advair Diskus Diskus Diskus 250-50 250-50 250-50 MCG/DOSE MCG/DOSE MCG/DOSE Metoprolol Metoprolol No 1{table QD Metoprolol Succinate Succinate t} Succinate ER 25 MG ER 25 MG ER 25 MG ProAir HFA ProAir HFA No 1{puff_ QID ProAir HFA 108 (90 108 (90 as_need 108 (90 Base) Base) ed} Base) MCG/ACT MCG/ACT MCG/ACT Furosemide Furosemide No 1{table QD Furosemide 40 MG 40 MG t} 40 MG Cozaar 100 Cozaar 100 No 1{table QD Cozaar 100 MG MG t} MG Dilaudid 4 Dilaudid 4 No 1{table 6xD Dilaudid 4 MG MG t_as_ne MG eded} Furosemide Furosemide No 1{table QD Furosemide 80 MG 80 MG t} 80 MG Dilantin Dilantin No 5{capsu Dilantin 100 MG 100 MG le} 100 MG Potassium Potassium No Potassium traZODone traZODone No 1{table QD traZODone HCl 50 MG HCl 50 MG t_at_be HCl 50 MG dtime_a s_neede d} Pravastatin Pravastatin No 1{table QD Pravastati Sodium 20 Sodium 20 t} n Sodium MG MG 20 MG Levothyroxi Levothyroxi No QD Levothyrox ne Sodium ne Sodium ine Sodium 88 MCG 88 MCG 88 MCG Cymbalta 60 Cymbalta 60 No 1{capsu QD Cymbalta MG MG le} 60 MG Phenytoin Phenytoin No Phenytoin Ambien 10 Ambien 10 No 1{table QD Ambien 10 MG MG t_at_be MG dtime_a s_neede d} Omeprazole Omeprazole No 1{capsu QD Omeprazole 40 MG 40 MG le} 40 MG Advair Advair No 1{puff} BID Advair Diskus Diskus Diskus 250-50 250-50 250-50 MCG/DOSE MCG/DOSE MCG/DOSE Metoprolol Metoprolol No 1{table QD Metoprolol Succinate Succinate t} Succinate ER 25 MG ER 25 MG ER 25 MG ProAir HFA ProAir HFA No 1{puff_ QID ProAir HFA 108 (90 108 (90 as_need 108 (90 Base) Base) ed} Base) MCG/ACT MCG/ACT MCG/ACT Furosemide Furosemide No 1{table QD Furosemide 40 MG 40 MG t} 40 MG Cozaar 100 Cozaar 100 No 1{table QD Cozaar 100 MG MG t} MG Dilaudid 4 Dilaudid 4 No 1{table 6xD Dilaudid 4 MG MG t_as_ne MG eded} Furosemide Furosemide No 1{table QD Furosemide 80 MG 80 MG t} 80 MG Dilantin Dilantin No 5{capsu Dilantin 100 MG 100 MG le} 100 MG Potassium Potassium No Potassium traZODone traZODone No 1{table QD traZODone HCl 50 MG HCl 50 MG t_at_be HCl 50 MG dtime_a s_neede d} Pravastatin Pravastatin No 1{table QD Pravastati Sodium 20 Sodium 20 t} n Sodium MG MG 20 MG Levothyroxi Levothyroxi No QD Levothyrox ne Sodium ne Sodium ine Sodium 88 MCG 88 MCG 88 MCG Cymbalta 60 Cymbalta 60 No 1{capsu QD Cymbalta MG MG le} 60 MG Advair Advair No 1{puff} BID Advair Diskus Diskus Diskus 250-50 250-50 250-50 MCG/DOSE MCG/DOSE MCG/DOSE Potassium Potassium No Potassium Omeprazole Omeprazole No 1{capsu QD Omeprazole 40 MG 40 MG le} 40 MG Dilantin Dilantin No 5{capsu Dilantin 100 MG 100 MG le} 100 MG Metoprolol Metoprolol No 1{table QD Metoprolol Succinate Succinate t} Succinate ER 25 MG ER 25 MG ER 25 MG Ambien 10 Ambien 10 No 1{table QD Ambien 10 MG MG t_at_be MG dtime_a s_neede d} Cozaar 100 Cozaar 100 No 1{table QD Cozaar 100 MG MG t} MG Cymbalta 60 Cymbalta 60 No 1{capsu QD Cymbalta MG MG le} 60 MG Furosemide Furosemide No 1{table QD Furosemide 40 MG 40 MG t} 40 MG traZODone traZODone No 1{table QD traZODone HCl 50 MG HCl 50 MG t_at_be HCl 50 MG dtime_a s_neede d} Levothyroxi Levothyroxi No QD Levothyrox ne Sodium ne Sodium ine Sodium 88 MCG 88 MCG 88 MCG Furosemide Furosemide No 1{table QD Furosemide 80 MG 80 MG t} 80 MG Phenytoin Phenytoin No Phenytoin ProAir HFA ProAir HFA No 1{puff_ QID ProAir HFA 108 (90 108 (90 as_need 108 (90 Base) Base) ed} Base) MCG/ACT MCG/ACT MCG/ACT Pravastatin Pravastatin No 1{table QD Pravastati Sodium 20 Sodium 20 t} n Sodium MG MG 20 MG Dilaudid 4 Dilaudid 4 No 1{table 6xD Dilaudid 4 MG MG t_as_ne MG eded} Phenytoin Phenytoin No Phenytoin ProAir HFA ProAir HFA No 1{puff_ QID ProAir HFA 108 (90 108 (90 as_need 108 (90 Base) Base) ed} Base) MCG/ACT MCG/ACT MCG/ACT traZODone traZODone No 1{table QD traZODone HCl 50 MG HCl 50 MG t_at_be HCl 50 MG dtime_a s_neede d} Pravastatin Pravastatin No 1{table QD Pravastati Sodium 20 Sodium 20 t} n Sodium MG MG 20 MG Cymbalta 60 Cymbalta 60 No 1{capsu QD Cymbalta MG MG le} 60 MG Cozaar 100 Cozaar 100 No 1{table QD Cozaar 100 MG MG t} MG Levothyroxi Levothyroxi No QD Levothyrox ne Sodium ne Sodium ine Sodium 88 MCG 88 MCG 88 MCG Dilantin Dilantin No 5{capsu Dilantin 100 MG 100 MG le} 100 MG Furosemide Furosemide No 1{table QD Furosemide 40 MG 40 MG t} 40 MG Omeprazole Omeprazole No 1{capsu QD Omeprazole 40 MG 40 MG le} 40 MG Ambien 10 Ambien 10 No 1{table QD Ambien 10 MG MG t_at_be MG dtime_a s_neede d} Advair Advair No 1{puff} BID Advair Diskus Diskus Diskus 250-50 250-50 250-50 MCG/DOSE MCG/DOSE MCG/DOSE Potassium Potassium No Potassium Dilaudid 4 Dilaudid 4 No 1{table 6xD Dilaudid 4 MG MG t_as_ne MG eded} Furosemide Furosemide No 1{table QD Furosemide 80 MG 80 MG t} 80 MG Advair Advair No 1{puff} BID Advair Diskus Diskus Diskus 250-50 250-50 250-50 MCG/DOSE MCG/DOSE MCG/DOSE Furosemide Furosemide No 1{table QD Furosemide 40 MG 40 MG t} 40 MG Omeprazole Omeprazole No 1{capsu QD Omeprazole 40 MG 40 MG le} 40 MG Furosemide Furosemide No 1{table QD Furosemide 80 MG 80 MG t} 80 MG ProAir HFA ProAir HFA No 1{puff_ QID ProAir HFA 108 (90 108 (90 as_need 108 (90 Base) Base) ed} Base) MCG/ACT MCG/ACT MCG/ACT Dilaudid 4 Dilaudid 4 No 1{table 6xD Dilaudid 4 MG MG t_as_ne MG eded} Ambien 10 Ambien 10 No 1{table QD Ambien 10 MG MG t_at_be MG dtime_a s_neede d} Levothyroxi Levothyroxi No QD Levothyrox ne Sodium ne Sodium ine Sodium 88 MCG 88 MCG 88 MCG traZODone traZODone No 1{table QD traZODone HCl 50 MG HCl 50 MG t_at_be HCl 50 MG dtime_a s_neede d} Cymbalta 60 Cymbalta 60 No 1{capsu QD Cymbalta MG MG le} 60 MG Pravastatin Pravastatin No 1{table QD Pravastati Sodium 20 Sodium 20 t} n Sodium MG MG 20 MG Cozaar 100 Cozaar 100 No 1{table QD Cozaar 100 MG MG t} MG Immunizations Ordered Immunization Filled Immunization Date Status Commen ts Source Name Name FluAD FluAD 2019-02-13 [facility]pleted [facility] FluAD FluAD 2019-02-13 Completed [facility] 11:33:00 - [facility] FluAD FluAD 2019-02-13 Completed [facility] 11:33:00 - [facility] FluAD FluAD 2019-02-13 Completed [facility] 11:33:00 - [facility] FluAD FluAD 2019-02-13 Completed [facility] 11:33:00 - [facility] FluAD FluAD 2019-02-13 Completed [facility] 11:33:00 - [facility] FluAD FluAD 2019-02-13 Completed [facility] 11:33:00 - [facility] FluAD FluAD 2019-02-13 Completed [facility] 11:33:00 - [facility] FluAD FluAD 2019-02-13 Completed [facility] 11:33:00 - [facility] FluAD FluAD 2019-02-13 Completed [facility] 00:00:00 - [facility] Vital Signs Vital Name Observation Time Observation Value Comments Source height 2022-03-17 11:40:00 62.00 [in_i] [facility] enter weight 2022-03-17 11:40:00 127 [lb_av] [facility] enter bmi 2022-03-17 11:40:00 23.23 kg/m2 [facility] - [facility] C enter Procedures This patient has no known procedures. Encounters Start End Encounter Admission Attending Care Care Encounter Source Date/Time Date/Time Type Type Clinicians Facility Department ID 2022-01-13 Outpatient Salomon, Na STLMLC STLMLC [id number] 2 Common 10:39:00 [facility] 2021-10-17 Outpatient Salomon, Na STLMLC STLMLC [id number] 2 Common 15:22:39 [facility] 2021-06-29 Outpatient Salomon, Na STLMLC STLMLC [id number] 2 Common 12:36:25 [id number] [facility] 2021-06-29 Outpatient Salomon, Na STLMLC STLMLC [id number] 2 Common 12:35:33 [id number] [facility] 2021-06-29 Outpatient Salomon, Na STLMLC STLMLC [id number] 2 Common 12:07:12 [id number] [facility] 2021-06-29 Outpatient Salomon, Na STLMLC STLMLC [id number] 2 Common 12:06:16 [id number] [facility] 2021-06-29 Outpatient Salomon, Na STLMLC STLMLC [id number] 2 Common 11:38:53 [id number] [facility] 2021-06-29 Outpatient Salomon, Na STLMLC STLMLC [id number] 2 Common 11:36:25 [id number] [facility] 2021-06-29 Outpatient Salomon, Na STLMLC STLMLC [id number] 2 Common 11:17:48 [id number] [facility] 2021-06-29 Outpatient Salomon, Na STLMLC STLMLC [id number] 2 Common 11:01:55 [id number] [facility] 2022-03-17 2022-03-17 OFFICE STLMLC STLMLC [id number] [facility] 00:00:00 00:00:00 VISIT [facility] PT - [facility] 4 [facility] 2021-12-28 2021-12-28 (TEL) STLMLC STLMLC [id number] Co mmon 00:00:00 00:00:00 [facility] 2021-10-17 2021-10-17 OFFICE STLMLC STLMLC [id number] Co mmon 00:00:00 00:00:00 VISIT [facility] PT - [facility] 4 [facility] 2021-10-14 2021-10-14 (TEL) STLMLC STLMLC [id number] Co mmon 00:00:00 00:00:00 [facility] 2021-09-14 2021-09-14 (TEL) STLMLC STLMLC [id number] Co mmon 00:00:00 00:00:00 [facility] 2021-09-06 2021-09-06 (TEL) STLMLC STLMLC [id number] [facility] m[facility] 00:00:00 00:00:00 [facility] 2021-08-29 2021-08-29 (TEL) STLMLC STLMLC [id number] Co m[facility] 00:00:00 00:00:00 [facility] 2021-05-06 2021-05-06 (TEL) STLMLC STLMLC [id number] Co mmon 00:00:00 00:00:00 [facility] 2021-04-27 2021-04-27 (TEL) STLMLC STLMLC [id number] Co mmon 00:00:00 00:00:00 [facility] 2020-10-21 2020-10-21 Outpatient STLMLC STLMLC [id number] Common 00:00:00 00:00:00 [facility] 2020-10-20 2020-10-20 Outpatient STLMLC STLMLC [id number] Common 00:00:00 00:00:00 [facility] 2020-08-06 2020-08-06 Outpatient STLMLC STLMLC [id number] Common 00:00:00 00:00:00 [facility] 2020-07-22 2020-07-22 Outpatient STLMLC STLMLC [id number] Common 00:00:00 00:00:00 [facility] 2020-03-24 2020-03-24 Outpatient STLMLC STLMLC [id number] Common 00:00:00 00:00:00 [facility] 2020-01-24 2020-01-24 [facility] [id number] Common 12:20:00 12:20:[address] [facility] 2020-01-23 2020-01-23 [facility] [id number] Common 14:00:00 14:00:[address] [facility] 2020-01-23 2020-01-23 [facility] [id number] Common 13:00:00 13:00:[address] [facility] 2020-01-02 2020-01-02 [facility] [id number] Common 15:48:00 15:48:[address] [facility] 2019-10-10 2019-10-10 [facility] [id number] Common 14:09:00 14:09:[address] [facility] 2019-06-23 2019-06-23 [facility] [id number] Common 16:20:00 16:20:[address] [facility] 2019-05-19 2019-05-19 [facility] [id number] Common 10:55:00 10:55:[address] [facility] 2019-04-01 2019-04-01 [facility] [id number] Common 16:27:00 16:27:[address] [facility] 2019-04-01 2019-04-01 [facility] [id number] Common 15:56:00 15:56:[address] [facility] 2019-04-01 2019-04-01 [facility] [id number] Common 10:41:00 10:41:[address] [facility] 2019-02-13 2019-02-13 [facility] [id number] Common 10:20:00 10:20:[address] [facility] 2019-02-10 2019-02-10 [facility] [id number] Common 16:38:00 16:38:[address] [facility] 2018-05-23 2018-05-23 [facility] [id number] Common 09:00:00 09:00:[address] [facility] 2018-04-15 2018-04-15 [facility] [id number] Common 11:00:00 11:00:[address] [facility] 2018-03-15 2018-03-15 [facility] [id number] Common 11:19:00 11:19:[address] [facility] 2018-02-21 2018-02-21 [facility] [id number] Common 10:45:00 10:45:[address] [facility] 2017-12-04 2017-12-04 [facility] [id number] Common 14:02:00 14:02:[address] [facility] 2017-11-21 2017-11-21 Outpatient [facility] [id number] Common 15:15:00 15:15:[address] [facility] Results Test Description Test Time Test [...] ng/mLAmphetamine/ 1000 ng/mL MethamphetamineOxycodone 300 ng/mLURINALYSIS W/ [id number] 05:47:00 Test Item Value Reference Range Interpretation [...] 516) SOURCE(BEAKER) (test code = Urine, Voided 7256) BASIC METABOLIC [id number] 02:25:00 Test Item Value Reference Range Interpretation [...] PATIEN TS. CBC W/PLT COUNT & AUTO [id number] 02:17:00 Test Item Value Reference Range Interpretation [...] K/ L 0.00-0.20 (test code = 417) [id number] 20:56:00 Test Item Value Reference Range Interpretation Comments ETHANOL (BEAKER) (test code = 400) 259 mg/dL <=10 H BASIC METABOLIC [id number] 20:55:00 Test Item Value Reference Range Interpretation [...] TO CALCULA TE ESTIMATED GFR. HEPATIC FUNCTION [id number] 20:54:00 Test Item Value Reference Range Interpretation [...] 6-55 347) CBC W/PLT COUNT & AUTO [id number] 20:36:00 Test Item Value Reference Range Interpretation [...]
[2022-05-27] MEDS ORDERED: MORPHINE 4 MG/ML SYR ONE (08:58)
[2022-05-27] MEDS ORDERED: ONDANSETRON 4 MG/2 ML VIAL ONE (08:59)
[2022-05-27 09:19] LABS: Absolute Lymphocytes (CBC) 1.1 K/uL (0.7-4.9); Hematocrit 42.6 % (36.0-45.0); Lymphocytes % 10.2 % (15.3-44.8); MCV 92.7 fL (80-100); MPV 8.1 fL (7.6-11.3)
[2022-05-27 09:20] LABS: Protime INR 0.94
[2022-05-27] MEDS ORDERED: KETOROLAC 30 MG/ML INJ ONE (09:27)
[2022-05-27 09:35] LABS: Albumin 3.6 g/dL (3.4-5.0); Bilirubin Total 0.5 mg/dL (0.2-1.0); Potassium 3.5 mmol/L (3.5-5.1); Protein, Total 7.8 g/dL (6.4-8.2)
--- NOTE | 2022-05-27 10:21 | RAD REPORT ---
EXAM DESCRIPTION: CT - Chest Abdomen Pelvis W Cont - 05/27/2022 9:57 am CLINICAL HISTORY: Chest and abdomen pain. fall, chest pain, abdominal pain COMPARISON: Lumbar Spine Wo Con dated 05/19/2022; Lumbar Spine 3 Views dated 04/20/2020 TECHNIQUE: Approximately 100 mL nonionic IV contrast was administered to the patient. All CT scans are performed using dose optimization technique as appropriate and may include automated exposure control or mA/KV adjustment according to patient size. FINDINGS: The lungs are mildly emphysematous with linear atelectasis suspected in both bases.No pleu ral or pericardial effusion.No intrathoracic adenopathy. The liver, spleen, pancreas, adrenal glands and kidneys are within normal limits. No bowel obstruction, free air, free fluid or abscess. Normal appendix. No pathologic lymphadenopath y in the abdomen or pelvis. Moderate thoracolumbar degenerative changes with scoliosis present. IMPRESSION: No acute abnormality is detected.
--- NOTE | 2022-05-27 11:14 | EDPHYS ---
Physician Documentation [facility] Name: Heaven Bhatia Age: 61 yrs Sex: Female : 1960 Arrival Date: 05/27/2022 Time: 08:33 Bed 18 Private MD: ED Physician Annika Gross HPI: 05/27 08:40 This 61 yrs old Female presents to ER via Ambulatory with complaints of Fall Injury, jmm Abdominal Pain. 08:40 Details of fall: The patient fell from an upright position. Onset: The symptoms/episode jmm began/occurred acutely, 3 day(s) ago. Associated injuries: The patient sustained injury to the chest, injury to the abdomen. This is a 61 year old female with a history of htn, hlp, epilepsy that presents to the ED with complaints of right sided abdominal pain after a fall which occurred approx 3 days ago. Patient denies hitting her head. Patient denies vomiting, diarrhea. . Historical: - Allergies: 09:38 No Known Allergies; ko1 - Immunization history: Last tetanus immunization: unknown. - Social history:: Smoking status: Patient reports the use of cigarette tobacco products, smokes one pack cigarettes per day. ROS: 08:40 Constitutional: Negative for fever, chills, and weight loss. jmm 08:40 Cardiovascular: Positive for chest pain, with movement. 08:40 Abdomen/GI: Positive for abdominal pain. 08:40 All other systems are negative. Exam: 08:40 Constitutional: This is a well developed, well nourished patient who is awake, alert, jmm and in no acute distress. Head/Face: atraumatic. Eyes: EOMI, no conjunctival erythema appreciated ENT: Moist Mucus Membranes Neck: Trachea midline, Supple 08:40 Back: Normal ROM Skin: General appearance color normal MS/ Extremity: Moves all extremities, no obvious deformities appreciated, no edema noted to the lower extremities Neuro: Awake and alert Psych: Behavior is normal, Mood is normal, Patient is cooperative and pleasant 08:40 Chest/axilla: Inspection: Palpation: tenderness, that is moderate, of the right lateral anterior chest. 08:40 Abdomen/GI: Inspection: abdomen appears normal, Bowel sounds: normal, Palpation: soft, mild abdominal tenderness, in the right upper quadrant. Vital Signs: 08:40 BP 147 / 78; Pulse 79; Resp 18; Temp 97(O); Pulse Ox 94% on R/A; Weight 57.15 kg; ko1 Height 5 ft. 2 in. (157.48 cm); Pain 1010; 09:00 Pulse Ox 92% on R/A; ko1 09:10 Pulse Ox 95% on 2 lpm NC; ko1 09:34 BP 144 / 73; Pulse 62; Pulse Ox 93% on 2 lpm NC; ko1 11:30 BP 138 / 76; Pulse 66; Pulse Ox 95% on R/A; ko1 08:40 Body Mass Index 23.04 (57.15 kg, 157.48 cm) ko1 Lanie Coma Score: 08:40 Eye Response: spontaneous(4). Verbal Response: oriented(5). Motor Response: obeys ko1 commands(6). Total: 15. Trauma Score (Adult): 08:40 Eye Response: spontaneous(1); Verbal Response: oriented(1); Motor Response: obeys ko1 commands(2); Systolic BP: > 89 mm Hg(4); Respiratory Rate: 10 to 29 per min(4); [place] Score: 15; Trauma Score: 12 MDM: 08:40 [facility] medically screened. [facility] 11:12 Data reviewed: vital signs, nurses notes. Counseling: I had a detailed discussion with [facility] the patient and/or guardian regarding: the historical points, exam findings, and any diagnostic results supporting the discharge/admit diagnosis, radiology results, the need for outpatient follow up, to return to the emergency department if symptoms worsen or persist or if there are any questions or concerns that arise at home. 05/27 08:50 Order name: CBC with Diff; Complete Time: 09:26 [facility] 05/27 08:50 Order name: CMP; Complete Time: 09:35 [facility] 05/27 08:50 Order name: PT-INR; Complete Time: 09:21 [facility] 05/27 08:50 Order name: CT Chest, Abdomen, Pelvis - W/Contrast [facility] 05/27 08:54 Order name: Chest Abdomen Pelvis W Cont; Complete Time: 10:27 [facility] 05/27 08:50 Order name: Saline Lock; Complete Time: 09:11 [facility] Administered Medications: 09:10 Drug: Zofran (Ondansetron) 4 mg Route: IVP; Site: left antecubital; ko1 09:21 Follow up: Response: No adverse reaction ko1 09:11 Drug: morphine 4 mg Route: IVP; Infused Over: 4 mins; Site: left antecubital; ko1 09:21 Follow up: Response: No adverse reaction; No change in condition; Pain is unchanged, ko1 physician notified 09:32 Drug: Ketorolac 30 mg Route: IVP; Site: left antecubital; ko1 09:44 Follow up: Response: No adverse reaction; Pain is decreased ko1 Disposition: 19:01 STAFF ATTESTATION STATEMENT: I was immediately available onsite in the emergency sd2 department for consultation in the care of this patient. I did not see or examine this patient. Annika Gross MD. Disposition Summary: 05/27/22 11:13 Discharge Ordered Location: Home [facility] Condition: Stable [facility] Diagnosis - Rib Contusion [facility] Followup: [facility] - With: Private Physician - When: 2 - 3 days - Reason: Recheck today's complaints, Continuance of care, Re-evaluation by your physician Discharge Instructions: - Discharge Summary Sheet [facility] - Rib Contusion [facility] Forms: - Medication Reconciliation Form [facility] - Thank You Letter [facility] - Antibiotic Education [facility] - Prescription Opioid Use [facility] Prescriptions: - Pepcid 20 mg Oral Tablet - take 1 tablet by ORAL route every 12 hours for 10 days; 20 tablet; Refills: 0, [facility] Product Selection Permitted - Diclofenac Sodium 75 mg Oral Tablet Sustained Release - take 1 tablet by ORAL route 2 times per day; 30 tablet; Refills: 0, Product [facility] Selection Permitted - orphenadrine citrate 100 mg Oral Tablet Sustained Release - take 1 tablet by ORAL route 2 times per day As needed; 20 tablet; Refills: 0, [facility] Product Selection Permitted Signatures: Dispatcher [employer] EDMS Ra Floyd PA PA jmm Dunlop, Stephanie, MD MD [facility] Consuelo Giron RN RN ko1 Corrections: (The following items were deleted from the chart) 38 09:38 PMHx: Hypertension; ko1 ko1 09:38 PMHx: Hyperlipidemia; ko1 ko1 09:38 PMHx: Seizures; ko1 ko1 09:38 PMHx: chronic back pain; ko1 ko1 09:38 09:38 PSHx: Appendectomy; ko1 ko1
--- NOTE | 2022-05-27 11:14 | ER ---
Nurse's Notes [facility] Name: Heaven Bhatia Age: 61 yrs Sex: Female : 1960 Arrival Date: 05/27/2022 Time: 08:33 Bed 18 Private MD: Diagnosis: Rib Contusion Presentation: 05/27 08:40 Chief complaint: Patient states: I fell a couple of days ago against the tub, the pain ko1 is getting worse, hurts to breath or talk. Care prior to arrival: None. Mechanism of Injury: Fall from standing position. Trauma event details: [facility] occurred in [facility], Injury occurred: at home. 08:40 Acuity: MARILYNN 3 ko1 08:40 Method Of Arrival: Ambulatory ko1 09:41 Coronavirus screen: Vaccine status: Patient reports being unvaccinated. At this time, ko1 the client does not indicate any symptoms associated with coronavirus-19. Ebola Screen: No symptoms or risks identified at this time. Initial Sepsis Screen: Does the patient meet any 2 criteria? No. Patient's initial sepsis screen is negative. Does the patient have a suspected source of infection? No. Patient's initial sepsis screen is negative. Risk Assessment: Do you want to hurt yourself or someone else?. Onset of symptoms was May 22, 2022. Trauma Activation: Not Applicable Physician: ED Physician; Name: ; Notified At: ; Arrived At: Physician: General Surgeon; Name: ; Notified At: ; Arrived At: Physician: Radiology; Name: ; Notified At: ; Arrived At: Physician: Respiratory; Name: ; Notified At: ; Arrived At: Physician: Lab; Name: ; Notified At: ; Arrived At: Historical: - Allergies: 09:38 No Known Allergies; ko1 - Immunization history: Last tetanus immunization: unknown. - Social history:: Smoking status: Patient reports the use of cigarette tobacco products, smokes one pack cigarettes per day. Screenin:40 Abuse screen: Denies threats or abuse. Denies injuries from another. Tuberculosis ko1 screening: No symptoms or risk factors identified. 09:38 [facility] ED Fall Risk Assessment (Adult) History of falling in the last 3 months, ko1 including since admission Yes- single mechanical fall (1 pt) Confusion or Disorientation No (0 pts) Intoxicated or Sedated No (0 pts) Impaired Gait No (0 pts) Mobility Assist Device Used No (0 pt) Altered Elimination No (0 pt) Score/Fall Risk Level 0 - 2 = Low Risk Oriented to surroundings, Maintained a safe environment, Educated pt \T\ family on fall prevention, incl call for assistance when getting out of bed, Assessed \T\ reinforced patient's understanding of fall precautions, Provided non-skid footwear, Hourly rounding (assess needs \T\ fall precautionary measures) done. Nutritional screening: No deficits noted. Primary Survey: 08:40 NO uncontrolled hemorrhage observed. A: The client is awake and alert. The airway is ko1 patent. The client is alert. Breathing/Chest: Spontaneous respiratory effort, equal unlabored respirations, breath sounds clear bilaterally, regular pattern, symmetrical chest rise and fall. Circulation: No external hemorrhage present. Regular and strong central pulse, skin warm/dry/normal color. Disability Pupils are equal, round, reactive to light and accommodation. Client is alert. Exposure/Environment: All clothing and personal items were removed. Forensic evidence collection is not deemed to be indicated at this time. Items placed in patient belonging bag. There is no evidence of uncontrolled external bleeding. Obvious injury(ies) are noted at this time: pain to left ribs/left upper quadrant of abdomen A warming method has been applied: A warm blanket has been provided to the patient. 09:39 Reassessment Breathing: Respiratory effort Spontaneous Shallow Breath sounds Diminished ko1 Respiratory pattern Regular Chest inspection Symmetrical. Secondary Survey: 09:50 HEENT: No deficits noted. Gastrointestinal: No deficits noted. : No deficits noted. ko1 Musculoskeletal: No deficits noted. Assessment: 08:40 General: Appears in no apparent distress. uncomfortable, Behavior is cooperative, ko1 appropriate for age. Pain: Complains of pain in right rib/abdomen Pain currently is 10 out of 10 on a pain scale. at worst was 10 out of 10 on a pain scale. 08:40 Neuro: No deficits noted. Cardiovascular: No deficits noted. Respiratory: Reports pain ko1 with cough pain with movement pain with respiration Airway is patent Trachea midline Respiratory effort is even, unlabored, shallow, Respiratory pattern is regular, Breath sounds are diminished in right posterior middle lobe and right posterior lower lobe GI: No deficits noted. : No deficits noted. EENT: No deficits noted. Derm: No deficits noted. Musculoskeletal: Reports pain in right upper quadrant and right lateral anterior chest. 09:10 Reassessment: Patients O2 sats consistently 89-92 with good waveform on monitor, placed ko1 on NC 2lpm. Vital Signs: 08:40 BP 147 / 78; Pulse 79; Resp 18; Temp 97(O); Pulse Ox 94% on R/A; Weight 57.15 kg; ko1 Height 5 ft. 2 in. (157.48 cm); Pain 10/10; 09:00 Pulse Ox 92% on R/A; ko1 09:10 Pulse Ox 95% on 2 lpm NC; ko1 09:34 BP 144 / 73; Pulse 62; Pulse Ox 93% on 2 lpm NC; ko1 11:30 BP 138 / 76; Pulse 66; Pulse Ox 95% on R/A; ko1 08:40 Body Mass Index 23.04 (57.15 kg, 157.48 cm) ko1 Lanie Coma Score: 08:40 Eye Response: spontaneous(4). Verbal Response: oriented(5). Motor Response: obeys ko1 commands(6). Total: 15. Trauma Score (Adult): 08:40 Eye Response: spontaneous(1); Verbal Response: oriented(1); Motor Response: obeys ko1 commands(2); Systolic BP: > 89 mm Hg(4); Respiratory Rate: 10 to 29 per min(4); Lanie Score: 15; Trauma Score: 12 ED Course: 08:33 Patient arrived in ED. as 08:37 Consuelo Giron RN is Primary Nurse. ko1 08:39 Ra Floyd PA is PHCP. [facility] 08:39 Annika Gross MD is Attending Physician. jmm 08:40 Patient has correct armband on for positive identification. Placed in gown. Bed in low ko1 position. Call light in reach. Side rails up X2. 08:40 Arm band placed on right wrist. ko1 08:40 Patient maintains SpO2 saturation greater than 95% on room air. ko1 08:40 Thermoregulation: warm blanket given to patient. ko1 08:42 Triage completed. ko1 09:00 PT-INR Sent. ko1 09:00 CMP Sent. ko1 09:00 CBC with Diff Sent. ko1 09:11 Inserted saline lock: 20 gauge in left antecubital area, using aseptic technique. Blood ko1 collected. 09:38 Pulse ox on. NIBP on. ko1 09:[address] via wheelchair. ko1 09:58 Chest Abdomen Pelvis W Cont In Process Unspecified. EDMS 11:30 No provider procedures requiring assistance completed. IV discontinued, intact, ko1 bleeding controlled, No redness/swelling at site. Pressure dressing applied. Administered Medications: 09:10 Drug: Zofran (Ondansetron) 4 mg Route: IVP; Site: left antecubital; ko1 09:21 Follow up: Response: No adverse reaction ko1 09:11 Drug: morphine 4 mg Route: IVP; Infused Over: 4 mins; Site: left antecubital; ko1 09:21 Follow up: Response: No adverse reaction; No change in condition; Pain is unchanged, ko1 physician notified 09:32 Drug: Ketorolac 30 mg Route: IVP; Site: left antecubital; ko1 09:44 Follow up: Response: No adverse reaction; Pain is decreased ko1 Medication: 11:30 VIS not applicable for this client. ko1 Intake: 12:06 PO: 240ml (Water); Total: 240ml. ko1 Output: 12:06 Urine: 600ml (Voided); Total: 600ml. ko1 Outcome: 11:13 Discharge ordered by . jose 11:30 Discharged to home ambulatory, with friend. ko1 11:30 Condition: stable 11:30 Discharge instructions given to patient, Instructed on discharge instructions, follow up and referral plans. medication usage, Demonstrated understanding of instructions, follow-up care, medications, Prescriptions given X 3. 11:46 Patient left the ED. mm9 12:06 Patient's length of stay was not longer than 2 hours. ko1 Signatures: Dispatcher [employer] EDMS Ra Floyd PA PA jmm Martinez, Amelia as Oliver, Kathy, RN RN ko1 Christen Jacinto mm9 Corrections: (The following items were deleted from the chart) 09:18 08:40 BP 147 / 78; Pulse 79bpm; Resp 18bpm; Pulse Ox 97% RA; Temp 97F Oral; 57.15 kg; ko1 Height 5 ft. 2 in.; BMI: 23.0; Pain 10/10; ko1 09:20 09:00 Reassessment: Patients O2 sats consistently 89-92 with good waveform on monitor, ko1 placed on NC 2lpm ko1 09:00 Pulse Ox 95% 3 lpm Nasal Cannula; ko1 09:38 PMHx: Hypertension; ko1 09:38 PMHx: Hyperlipidemia; ko1 09:38 PMHx: Seizures; ko1 09:38 PMHx: chronic back pain; ko1 09:38 PSHx: Appendectomy; ko1 08:40 Respiratory: Reports pain with cough pain with movement pain with respiration ko1 Airway is patent Trachea midline Respiratory effort is even, unlabored, shallow, Respiratory pattern is regular, Breath sounds are diminished in right posterior middle lobe and right posterior lower lobe ko1
[2022-05-27 11:59] VITALS: TEMP 97
[2022-05-27 12:09] VITALS: BP 144/73; O2SAT 93
== END 2022-05-27 11:46 | disposition home or self-care (01) ==
LOC: ER 08:31
DX: S20.219A Contusion of unspecified front wall of thorax, initial encounter (principal); F17.210 Nicotine dependence, cigarettes, uncomplicated
CPT/HCPCS: 85025; 36415; 85610; 80053; 71260; 74177; 96375; 96374; 99285; Q9967; J2405

== ENCOUNTER 2022-05-29 05:32 | Observation (INO) | payer OTHER ==
--- OUTSIDE RECORDS SUMMARY | 2022-05-29 05:37 | XMS REPORT | Continuity of Care Document ---
:1960 Author Organization [facility] t Address [address] [place] [address] Care Team Providers Name Role Phone Sharpless Primary Care Physician Bailey Salomon Attending Clinician Unavailable CALLUM CERRATO Attending Clinician Unavailable CHRISTELLE GARDNER Admitting Clinician Unavailable Payers Payer Name Policy Type Policy Number Effective Date Expiration Date S ource MEDICARE MB [id number] 2008 [facility] NOVITAS 00:00: [facility] [id number] [facility] Problems Condition Condition Condition Status Onset Resolution Last Treating Co mments Source Name Details Category Date Date Treatment Clinician Date Suicidal Suicidal Disease Active [facility] 00 [place] Alcohol Alcohol Disease Active [facility] intoxicati intoxicati 08-29 Randee kes on on 00:00: Medical 00 [place] Fall, Fall, Disease Active [facility] initial initial 08-[facility] encounter encounter 00:00: Medi yoan 00 [place] Allergic Allergic Problem Commo n rhinitis rhinitis [facility] Hypothyroi Hypothyroi Problem C ommon dism dism [facility] Constipati Constipati Problem C ommon on on [facility] Hyperlipid Hyperlipid Problem C ommon emia emia [facility] [id number] Depression Problem Com mon with Spirit anxiety [facility] Hypotensio Hypotensio Problem C ommon n n Spirit [facility] Obesity Mild Problem Common obesity [facility] Seizure Seizures Problem Common [facility] Localized Localized Problem Com mon swelling, swelling, Spir it mass and mass and - CHI lump, neck lump, neck [facility] [id number] Primary Problem Common insomnia [facility] [id number] Localized Problem Comm on osteoporos Spirit is, - CHI unspecifie 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 [facility] Nicotine Nicotine Problem Commo n dependence dependence Sp wanda [facility] Vitamin D Vitamin D Problem Com [facility] Nausea and Intractabl Problem C ommon vomiting e vomiting Spir it with [facility] [id number] Gastroesop Problem Co mmon hageal Spirit reflux - CHI disease [facility] esophagiti Medica l s [place] [id number] Urinary Problem Commo n frequency [facility] Essential Benign Problem Common hypertensi essential Spi rit on HTN [facility] [id number] Vomiting Problem Com mon without Spirit nausea, - CHI intractabi [facility] vomiting Medical not Center specified, unspecifie d vomiting type Tobacco Cigarette Problem Commo n user nicotine Spirit dependence - [facility] without complicati [facility] Epigastric Epigastric Problem C ommon pain pain [facility] Abnormal Abnormal Problem Commo n weight weight Spirit loss loss [facility] Allergies, Adverse Reactions, Alerts Allergy Allergy Status Severity Reaction(s) Onset Inactive Treating Comm ents Source Name Type Date Date Clinician NO KNOWN Allergy Active [facility] morphine morphine Active nausea Common [facility] Social History Social Habit Start Date Stop Date Quantity Comments Source History of Current Smoker [facility] - Tobacco Use [facility] Alcohol intake 2016-08-28 2016-08-28 Current drinker [facility] S [facility] 00:00:00 00:00:00 of [facility] (finding) Sex Ass[birth year] At [birth year] [facility] 00:00:00 00:00:00 Medical Center Smoking Status Start Date Stop Date Source Current Smoker 2022-01-16 00:00:00 [facility] Medications Ordered Filled Start Stop Current Ordering Indication Dosage Frequency Signature Comments Components Source Medication Medication Date Date Medication? Clinician (SIG) Name Name Nystatin Nystatin 2020-06- No 1{appli BID Nystatin [id number] 2- 02 cation_ [id number] UNIT/GM UNIT/GM 00:00: 00:00 to_affe UNIT/GM 00 :00 cted_ar ea} Triamcinolo Triamcinolo 2020-0 Yes Na Salomon 1 Common ne ne 5-08 applicatio Spirit Acetonide Acetonide 00:00: n to - C HI 00 affected [facility] Triamcinolo Triamcinolo 2020-0 No 1{appli [...] t ER ER 00:00: - CHI 00 [facility] Metoprolol Metoprolol 2020-0 No 1{table [...] on 2-16 Spirit 00:00: - CHI 00 [facility] Xanax 0.5 Xanax 0.5 2018-06 [...] MG MG 2-16 t} MG 00:00: 00 UNKNOWN 2016- Yes Blood [facility]28 [facility] 14:35: med does Medical 17 not know Center name nor dose . traZODone Yes 50mg QD Take [address] (DESYREL) 3-28 by mouth [facility] 50 MG 14:35: nightly Medical tablet 17 Does not Center know dose . cholecalcif Yes 5000U Q7D Take 5,[address] michelle, 3-28 Units by TRIRIGA vitamin D3, 14:35: mouth once Medical 5,000 unit 17 a week. Center Tab cholecalcif Yes 5000U Q7D Take 5,[address] michelle, 3-28 Units by TRIRIGA vitamin D3, 14:35: mouth once Medical 5,000 unit 17 a week. Center Tab UNKNOWN Yes Blood [facility] 3-28 pressure kes 14:35: med does Medical 17 not know Center name nor dose . traZODone Yes 50mg QD Take [address] (DESYREL) 3-28 by mouth [facility] 50 MG 14:35: nightly Medical tablet 17 Does not Center know dose . Levothyroxi Levothyroxi Yes Na Salomon 1 tablet Common ne Sodium ne Sodium on an Spir it empty - CHI stomach in [facility] Furosemide Furosemide Yes Na Salomon 1 tablet Common [facility] Cymbalta [facility] Yes Na Salomon 1 capsule Common [facility] Cozaar Cozaar Yes Na Salomon 1 tablet Comm on [facility] Pravastatin Pravastatin Yes Na Salomon 1 tablet Common Sodium Sodium [facility] Omeprazole Omeprazole Yes Na Salomon 1 capsule Common [facility] ProAir HFA ProAir HFA Yes Na Salomon 1 puff as Common needed [facility] Ambien Ambien Yes Na Salomon 1 tablet Comm on at bedtime [facility] as needed [facility] Phenytoin Phenytoin Yes Na Salomon not Co mmon defined [facility] Furosemide Furosemide Yes Na Salomon 1 tablet Common [facility] Advair Advair Yes Na Salomon 1 puff Common Diskus Diskus [facility] Dilaudid Dilaudid Yes Na Salomon 1 tablet Common as needed [facility] Trazodone Trazodone Yes Na Salomon 1 tablet Common HCl HCl at bedtime [facility] as needed [facility] Potassium Potassium Yes Na Salomon not Co mmon defined [facility] Dilantin Dilantin Yes Na Salomon 5 capsule [facility] - [facility] Amitiza Amitiza Yes Na Salomon 1 capsule C ommon with food Spirit and water - CHI [facility] Phenytoin Phenytoin No Phenytoin Potassium [...] Date Status Commen ts Source Name Name Janelle Lusi 2019-02-13 Completed [facility] 11:33:00 - [facility] FluAD FluAD 2019-02-13 Completed [facility] 11:33:00 - [facility] FluAD FluAD 2019-02-13 Completed [facility] 11:33:00 - [facility] FluAD FluAD 2019-02-13 Completed [facility] 11:33:00 - [facility] FluAD FluAD 2019-02-13 Completed [facility] 11:33:00 - [facility] FluAD FluAD 2019-02-13 Completed [facility] 11:33:00 - [facility] FluAD FluAD 2019-02-13 Completed [facility] 11:33:00 - [facility] FluAD FluAD 2019-02-13 Completed [facility] 11:33:00 - [facility] FluAD FluAD 2019-02-13 Completed [facility] 11:33:00 - [facility] FluAD FluAD 2019-02-13 Completed [facility] 00:00:00 - [facility] Vital Signs Vital Name Observation Time Observation Value Comments Source height 2022-03-17 11:40:00 62.00 [in_i] [facility] enter weight 2022-03-17 11:40:00 127 [lb_av] [facility] enter bmi 2022-03-17 11:40:00 23.23 kg/m2 [facility] C enter Procedures This patient has no known procedures. Encounters Start End Encounter Admission Attending Care Care Encounter Source Date/Time Date/Time Type Type Clinicians Facility Department ID 2022-01-13 [facility] [id number] 2 Common 10:39:00 [facility] 2021-10-17 [facility] [id number] Common 15:22:39 [facility] 2021-06-29 [facility] [id number] 2 Common 12:36:25 [id number] [facility] 2021-06-29 [facility] [id number] 2 Common 12:35:33 [id number] [facility] 2021-06-29 Outpatient Salomon, Na [facility] [id number] Common 12:07:12 [id number] [facility] 2021-06-29 Outpatient Salomon, Na STLMLC ST[facility] [id number] Common 12:06:16 [id number] [facility] 2021-06-29 Outpatient Salomon, Na STLML[facility] [id number] 2 Common 11:38:53 [id number] [facility] 2021-06-29 Outpatient Salomon, Na STLML[facility] ST[facility] [id number] 2 Common 11:36:25 [id number] [facility] 2021-06-29 Outpatient Salomon, Na STLML[facility] ST[facility] [id number] Common 11:17:48 [id number] [facility] 2021-06-29 Outpatient Salomon, Na STLMLC ST[facility] [id number] 2 Common 11:01:55 [id number] [facility] 2022-03-17 2022-03-17 OFFICE STLMLC ST[facility] [id number] Co mmon 00:00:00 00:00:00 VISIT [facility] PT - CHI LEVEL [address] [place] [address] 2021-12-28 2021-12-28 (TEL) STLMLC STLMLC [id number] Co mmon 00:00:00 00:00:00 [facility] 2021-10-17 2021-10-17 OFFICE STLMLC STLMLC [id number] Co mmon 00:00:00 00:00:00 VISIT [facility] PT - CHI LEVEL [address] [place] [address] 2021-10-14 2021-10-14 (TEL) STLMLC STLMLC [id number] Co mmon 00:00:00 00:00:00 [facility] 2021-09-14 2021-09-14 (TEL) STLMLC STLMLC [id number] Co mmon 00:00:00 00:00:00 [facility] 2021-09-06 2021-09-06 (TEL) STLMLC STLMLC [id number] Co mmon 00:00:00 00:00:00 [facility] 2021-08-29 2021-08-29 (TEL) STLMLC STLMLC [id number] Co mmon 00:00:00 00:00:00 [facility] 2021-05-06 2021-05-06 (TEL) STLMLC STLMLC [id number] Co mmon 00:00:00 00:00:00 [facility] 2021-04-27 2021-04-27 (TEL) STLMLC STLMLC [id number] Co mmon 00:00:00 00:00:00 [facility] 2020-10-21 2020-10-21 Outpatient [facility]MLC ST[facility] [id number] Common 00:00:00 00:00:00 [facility] 2020-10-20 2020-10-20 Outpatient STLMLC ST[facility] [id number] Common 00:00:00 00:00:00 [facility] 2020-08-06 2020-08-06 Outpatient STLMLC ST[facility] [id number] Common 00:00:00 00:00:00 [facility] 2020-07-22 2020-07-22 Outpatient STLMLC ST[facility] [id number] Common 00:00:00 00:00:00 [facility] 2020-03-24 2020-03-24 Outpatient STLMLC ST[facility] [id number] Common 00:00:00 00:00:00 [facility] 2020-01-24 2020-01-24 [facility] [id number] Common 12:20:00 12:20:[address] [facility] 2020-01-23 2020-01-23 [facility] [id number] Common 14:00:00 14:00:[address] [place] [facility] 2020-01-23 2020-01-23 [facility] [id number] Common 13:00:00 13:00:[address] [facility] 2020-01-02 2020-01-02 [facility] [id number] Common 15:48:00 15:48:[address] [facility] 2019-10-10 2019-10-10 [facility] [id number] Common 14:09:00 14:09:[address] [facility] 2019-06-23 2019-06-23 [facility] [id number] Common 16:20:00 16:20:[address] [facility] 2019-05-19 2019-05-19 [facility] [id number] Common 10:55:00 10:55:[address] [facility] 2019-04-01 2019-04-01 [facility] [id number] Common 16:27:00 16:27:[address] [facility] 2019-04-01 2019-04-01 [facility] [id number] Common 15:56:00 15:56:[address] [facility] 2019-04-01 2019-04-01 [facility] [id number] Common 10:41:00 10:41:[address] [place] [facility] 2019-02-13 2019-02-13 [facility] [id number] Common 10:20:00 10:20:[address] [facility] 2019-02-10 2019-02-10 [facility] [id number] Common 16:38:00 16:38:[address] [facility] 2018-05-23 2018-05-23 [facility] [id number] Common 09:00:00 09:00:[address] [facility] 2018-04-15 2018-04-15 [facility] [id number] Common 11:00:00 11:00:[address] [facility] 2018-03-15 2018-03-15 [facility] [id number] Common 11:19:00 11:19:[address] [facility] 2018-02-21 2018-02-21 [facility] [id number] Common 10:45:00 10:45:[address] [facility] 2017-12-04 2017-12-04 [facility] [id number] Common 14:02:00 14:02:[address] [facility] 2017-11-21 2017-11-21 [facility] [id number] Common 15:15:00 15:15:[address] [place] [facility] Results Test Description Test Time Test Comments [...] ng/mLAmphetamine/ 1000 ng/mL MethamphetamineOxycodone 300 ng/mLURINALYSIS W/ [id number] 05:47:00 Test Item Value Reference Range Interpretation [...] 516) SOURCE(BEAKER) (test code = Urine, Voided 2455) BASIC METABOLIC [id number] 02:25:00 Test Item Value Reference Range Interpretation [...] PATIEN TS. CBC W/PLT COUNT & AUTO [id number] 02:17:00 Test Item Value Reference Range Interpretation [...] K/ L 0.00-0.20 (test code = 417) [id number] 20:56:00 Test Item Value Reference Range Interpretation Comments ETHANOL (BEAKER) (test code = 400) 259 mg/dL <=10 H BASIC METABOLIC [id number] 20:55:00 Test Item Value Reference Range Interpretation [...] TO CALCULA TE ESTIMATED GFR. HEPATIC FUNCTION [id number] 20:54:00 Test Item Value Reference Range Interpretation [...] 6-55 347) CBC W/PLT COUNT & AUTO [id number] 20:36:00 Test Item Value Reference Range Interpretation [...]
[2022-05-29] MEDS ORDERED: MORPHINE 4 MG/ML SYR ONE (06:08)
[2022-05-29] MEDS ORDERED: GABAPENTIN 300 MG CAP ONE (06:08)
[2022-05-29] MEDS ORDERED: CYCLOBENZAPRINE 10 MG TAB ONE (06:08)
[2022-05-29] MEDS ORDERED: KETOROLAC 30 MG/ML INJ ONE (06:09)
[2022-05-29] MEDS ORDERED: ONDANSETRON 4 MG/2 ML VIAL ONE (06:09)
[2022-05-29] MEDS ORDERED: LIDOCAINE 4% PATCH ONE (06:09)
[2022-05-29 06:47] LABS: Absolute Lymphocytes (CBC) 2.4 K/uL (0.7-4.9); Hematocrit 38.9 % (36.0-45.0); Lymphocytes % 24.4 % (15.3-44.8); MCV 92.9 fL (80-100); MPV 7.6 fL (7.6-11.3); RBC Red Blood Cell Count 4.18 M/uL (3.86-4.86)
[2022-05-29 07:16] LABS: Albumin 3.1 g/dL (3.4-5.0); Bilirubin Total 0.4 mg/dL (0.2-1.0); Potassium 3.6 mmol/L (3.5-5.1); Protein, Total 6.8 g/dL (6.4-8.2); Troponin High Sensitivity 11.3 pg/mL (<58.9)
--- NOTE | 2022-05-29 08:15 | EDPHYS ---
Physician Documentation [facility] Name: Heaven Bhatia Age: 61 yrs Sex: Female : 1960 Arrival Date: 05/29/2022 Time: 05:32 Bed 15 Private MD: ED Physician Zach Hernandez HPI: 05/29 07:08 This 61 yrs old Female presents to ER via Wheelchair with complaints of Breathing rt Difficulty. 07:08 Onset: The symptoms/episode began/occurred 2 day(s) ago. Presents to the ED following a rt rib contusion about 2 days ago, she was seen here in the ED, had a negative CT scan, was started on pain medications. Patient states that she had worsening pain, pain worse with deep inspiration on her right lower rib margin. Denies other acute complaints at this time other than swelling of the legs bilaterally which is new for her. Symptoms are moderate severity, aching nature, nonradiating, no other aggravating alleviating factors.. Historical: - Allergies: 05:53 No Known Allergies; vc1 - PMHx: 06:02 Chronic back pain; vc1 06:03 Hyperlipidemia; Hypertensive disorder; Seizure; vc1 - PSHx: 06:03 Appendectomy; vc1 - Immunization history:: Client reports having NOT received the Covid vaccine. - Social history:: Smoking status: Patient reports the use of cigarette tobacco products, smokes one pack cigarettes per day. - Family history:: not pertinent. ROS: 07:08 Constitutional: Negative for fever, chills, and weight loss, Eyes: Negative for injury, rt pain, redness, and discharge, ENT: Negative for injury, pain, and discharge, Neck: Negative for injury, pain, and swelling, Respiratory: Negative for shortness of breath, cough, wheezing, and pleuritic chest pain, Abdomen/GI: Negative for abdominal pain, nausea, vomiting, diarrhea, and constipation, Back: Negative for injury and pain, MS/Extremity: Negative for injury and deformity, Skin: Negative for injury, rash, and discoloration, Neuro: Negative for headache, weakness, numbness, tingling, and seizure, Psych: Negative for depression, anxiety, suicide ideation, homicidal ideation, and hallucinations. 07:08 Cardiovascular: Positive for chest pain, edema. Exam: 07:08 Constitutional: This is a well developed, well nourished patient who is awake, alert, rt and in no acute distress. Head/Face: Normocephalic, atraumatic. Eyes: Pupils equal round and reactive to light, extra-ocular motions intact. Lids and lashes normal. Conjunctiva and sclera are non-icteric and not injected. Cornea within normal limits. Periorbital areas with no swelling, redness, or edema. ENT: Nares patent. No nasal discharge, no septal abnormalities noted. Tympanic membranes are normal and external auditory canals are clear. Oropharynx with no redness, swelling, or masses, exudates, or evidence of obstruction, uvula midline. Mucous membranes moist. Neck: Trachea midline, no thyromegaly or masses palpated, and no cervical lymphadenopathy. Supple, full range of motion without nuchal rigidity, or vertebral point tenderness. No Meningismus. Cardiovascular: Regular rate and rhythm with a normal S1 and S2. No gallops, murmurs, or rubs. Normal PMI, no JVD. No pulse deficits. Respiratory: Lungs have equal breath sounds bilaterally, clear to auscultation and percussion. No rales, rhonchi or wheezes noted. No increased work of breathing, no retractions or nasal flaring. Abdomen/GI: Soft, non-tender, with normal bowel sounds. No distension or tympany. No guarding or rebound. No evidence of tenderness throughout. Back: No spinal tenderness. No costovertebral tenderness. Full range of motion. Female : Normal external genitalia. Skin: Warm, dry with normal turgor. Normal color with no rashes, no lesions, and no evidence of cellulitis. MS/ Extremity: 2+ bilateral lower extremity edema, no deformities Neuro: Awake and alert, GCS 15, oriented to person, place, time, and situation. Cranial nerves II-XII grossly intact. Motor strength 5/5 in all extremities. Sensory grossly intact. Cerebellar exam normal. Normal gait. Psych: Awake, alert, with orientation to person, place and time. Behavior, mood, and affect are within normal limits. 07:08 Chest/axilla: Rest of the right lower rib margin,no deformities noted. 07:08 ECG was reviewed by the Attending Physician. Vital Signs: 05:51 BP 191 / 103; Pulse 95; Pulse Ox 99% on R/A; Weight 56.7 kg; Height 5 ft. 2 in. (157.48 vc1 cm); Pain 10/10; 06:45 BP 121 / 74; Pulse 56; Resp 18; Pulse Ox 90% on R/A; jb4 07:45 BP 111 / 69; Pulse 52; Resp 22; Pulse Ox 95% 2 lpm ; kr3 08:45 BP 96 / 59; Pulse 53; Resp 20; Pulse Ox 100% on 2 lpm NC; kr3 09:45 BP 106 / 59; Pulse 67; Resp 20; Temp 98.2(O); Pulse Ox 98% on 2 lpm NC; kr3 11:03 BP 107 / 62; Pulse 60; Resp 18; Pulse Ox 93% on 2 lpm NC; kr3 05:51 Body Mass Index 22.86 (56.70 kg, 157.48 cm) vc1 05:51 unable to count respirtations; pt unable to sit still, holding breath. vc1 MDM: 05:41 Patient medically screened. rt 08:15 Differential diagnosis: asthma, Bronchitis pneumonia, pulmonary edema, reactive airway enrike disease, Unstable Angina. Antibiotic administration: The patient is discharged and will get outpatient antibiotics, Zithromax. The patient's Wells Deep Vein Thrombosis Score was calculated as follows: Total Score: 0-2 Pts- Low Risk. The patient's pulmonary embolism risk score was calculated as follows: Total Score: 0-2 points. This patient was found to be at low risk for a pulmonary embolism by using the Well's assessment criteria. Immunization status: Influenza vaccine: Data reviewed: vital signs, nurses notes, lab test result(s), EKG, radiologic studies, plain films. Data interpreted: monitor technician: rate is 56 beats/min, rhythm is regular. Test interpretation: by ED physician or midlevel provider: ECG, plain radiologic studies. Counseling: I had a detailed discussion with the patient and/or guardian regarding: the historical points, exam findings, and any diagnostic results supporting the discharge/admit diagnosis, lab results, radiology results, the need for outpatient follow up. 05/29 06:23 Order name: CBC with Diff; Complete Time: 07:13 rt 05/29 06:23 Order name: CMP; Complete Time: 07:35 rt 05/29 06:23 Order name: Troponin High Sensitivity; Complete Time: 07:35 rt 05/29 06:23 Order name: BNP; Complete Time: 07:35 rt 05/29 11:09 Order name: ABG enrike 05/29 12:45 Order name: SARS RAPID jl7 05/29 13:46 Order name: CBC with Automated Diff EDMS 05/29 13:46 Order name: CBC with Automated Diff EDMS 05/29 13:46 Order name: Comprehensive Metabolic Panel EDMS 05/29 13:46 Order name: Comprehensive Metabolic Panel EDMS 05/29 13:46 Order name: Lactate w/ 2H reflex if indic. EDMS 05/29 13:46 Order name: Lactate w/ 2H reflex if indic. EDMS 05/29 13:46 Order name: Lipid Profile EDMS 05/29 13:46 Order name: Lipid Profile EDMS 05/29 05:50 Order name: Ribs Right XRAY rt 05/29 05:50 Order name: Chest Single View XRAY rt 05/29 07:13 Order name: US Extremity Venous W Compression Brian enrike 05/29 08:17 Order name: INCENTIVE SPIROMETRY [facility] 05/29 11:38 Order name: BIPAP [facility] 05/29 13:46 Order name: Magnesium EDKS 05/29 13:46 Order name: Magnesium EDKS 05/29 13:46 Order name: NT PRO-BNP EDKS 05/29 13:46 Order name: NT PRO-BNP EDKS 05/29 13:46 Order name: Phosphorus EDKS 05/29 13:46 Order name: Phosphorus EDKS 05/29 13:46 Order name: Procalcitonin EDKS 05/29 13:46 Order name: Procalcitonin EDKS 05/30 05:54 Order name: Manual Differential EDKS 05/29 06:23 Order name: EKG; Complete Time: 06:23 rt 05/29 06:23 Order name: EKG - Nurse/Tech; Complete Time: 07:06 rt 05/29 06:34 Order name: IV; Complete Time: 06:35 jb4 05/29 13:46 Order name: Heart Healthy EDMS EC:08 Rate is 57 beats/min. Rhythm is regular, Sinus bradycardia with No ectopy. QRS [place] is rt Normal. ME interval is normal. QRS interval is normal. QT interval is normal. No Q waves. T waves are Normal. No ST changes noted. Administered Medications: 06:33 Drug: morphine 4 mg Route: IVP; Infused Over: 4 mins; Site: right antecubital; jb4 06:33 Drug: Zofran (Ondansetron) 4 mg Route: IVP; Site: right antecubital; jb4 06:33 Drug: Ketorolac 30 mg Route: IVP; Site: right antecubital; jb4 06:33 Drug: Lidoderm Patch 5 % (700 mg/patch) 1 patches Route: Topical; Site: affected area; jb4 06:33 Drug: Flexeril (cyclobenzaprine) 10 mg Route: PO; jb4 06:33 Drug: Gabapentin 300 mg Route: PO; jb4 08:41 Drug: SOLU-Medrol (methylPrednisoLONE) 125 mg Route: IVP; Site: right antecubital; kr3 08:41 Drug: predniSONE 40 mg Route: PO; kr3 08:41 Drug: Xopenex (levalbuterol) 2.5 mg Route: Inhalation; kr3 08:41 Drug: AtroVENT (ipratropium) Aerosol 0.5 mg Route: Inhalation; kr3 11:13 Drug: Xopenex (levalbuterol) 2.5 mg Route: Inhalation; kr3 Disposition Summary: 05/29/22 11:40 Hospitalization Ordered Hospitalization Status: Inpatient Admission enrike Condition: Fair(05/29/22 11:40) enrike Problem: new(05/29/22 11:40) enrike Symptoms: have improved(05/29/22 11:40) enrike Bed/Room Type: Standard enrike Provider: Coby Scott(05/29/22 11:45) enrike Location: [facility] ER HOLD(05/29/22 15:11) jl7 Room Assignment: ERHOLD-(05/29/22 15:11) jl7 Diagnosis - COPD/ Chronic obstructive pulmonary disease with (acute) exacerbation(05/29/22 enrike 11:40) - Hypoxemia(05/29/22 11:40) enrike - Acute and chronic respiratory failure with hypoxia enrike - Fall on same level, unspecified(05/29/22 11:40) enrike - Sprain of ribs(05/29/22 11:40) enrike Forms: - Medication Reconciliation Form enrike - SBAR form enrike Signatures: Dispatcher [employer] EDZach Rojas MD MD cha Bryson, James, RN RN jb4 Rajeev Claire RN RN jl7 Milla Khan RN RN vc1 Eduarda Lord RN RN kr3 Jesus Hernández MD MD rt Corrections: (The following items were deleted from the chart) 06:02 05:53 Social history: Smoking status: Patient reports the use of cigarette tobacco vc1 products, unknown amount vc1 : 08:15 Home enrike [facility] 08:15 new formerly [facility] 08:15 have improved enrike [facility] 08:15 Stable enrike enrike 08:15 Tobacco abuse counseling enrike enrike 08:15 Tobacco use enrike enrike 08:15 Dyspnea enrike enrike 08:15 Fall on same level, unspecified enrike enrike 08:15 Sprain of ribs enrike enrike 08:15 COPD/ Chronic obstructive pulmonary disease with (acute) exacerbation enrike enrike 08:15 Edema, unspecified enrike enrike 39 11:25 Hypoxemia enrike enrike 11:41 11:40 Coby Scott enrike [facility] 11:45 11:41 Maicol Banks [facility] 15:11 11:40 Telemetry/MedSurg (Inpatient) enrike jl7 15:11 11:40 enrike jl7
--- NOTE | 2022-05-29 08:15 | ER ---
Nurse's Notes [facility] Name: Heaven Bhatia Age: 61 yrs Sex: Female : 1960 Arrival Date: 05/29/2022 Time: 05:32 Bed 15 Private MD: Diagnosis: COPD/ Chronic obstructive pulmonary disease with (acute) exacerbation;Hypoxemia;Acute and chronic respiratory failure with hypoxia;Fall on same level, unspecified;Sprain of ribs Presentation: 05/29 05:51 Chief complaint: Patient states: "I broke my rib a week ago and it hurts so bad to vc1 breath. I can't breath.". Coronavirus screen: Vaccine status: Patient reports being unvaccinated. At this time, the client does not indicate any symptoms associated with coronavirus-19. Ebola Screen: No symptoms or risks identified at this time. Initial Sepsis Screen: Does the patient meet any 2 criteria? No. Patient's initial sepsis screen is negative. Does the patient have a suspected source of infection? No. Patient's initial sepsis screen is negative. Risk Assessment: Do you want to hurt yourself or someone else? Patient reports no desire to harm self or others. Onset of symptoms was May 28, 2022. 05:51 Method Of Arrival: Wheelchair vc1 05:51 Acuity: MARILYNN 3 vc1 Triage Assessment: 05:56 General: Appears uncomfortable, Behavior is anxious, fussy, restless. Pain: Complains vc1 of pain in right chest wall Pain does not radiate. Pain currently is 10 out of 10 on a pain scale. Quality of pain is described as stabbing, Pain began gradually, Is continuous, Alleviated by medications, Aggravated by increased activity, repositioning, coughing. EENT: No deficits noted. No signs and/or symptoms were reported regarding the EENT system. Neuro: Level of Consciousness is awake, alert, obeys commands, Oriented to person, place, time, situation, Appropriate for age. Cardiovascular: Patient's skin is warm and dry. Respiratory: Reports shortness of breath at rest labored breathing pain with cough pain with movement pain with respiration Onset: The symptoms/episode began/occurred gradually, the patient has mild shortness of breath. GI: No deficits noted. No signs and/or symptoms were reported involving the gastrointestinal system. : No deficits noted. No signs and/or symptoms were reported regarding the genitourinary system. Derm: No deficits noted. No signs and/or symptoms reported regarding the dermatologic system. Musculoskeletal: No deficits noted. No signs and/or symptoms reported regarding the musculoskeletal system. Historical: - Allergies: 05:53 No Known Allergies; vc1 - PMHx: 06:02 Chronic back pain; vc1 06:03 Hyperlipidemia; Hypertensive disorder; Seizure; vc1 - PSHx: 06:03 Appendectomy; vc1 - Immunization history:: Client reports having NOT received the Covid vaccine. - Social history:: Smoking status: Patient reports the use of cigarette tobacco products, smokes one pack cigarettes per day. - Family history:: not pertinent. Screenin:54 [facility] ED Fall Risk Assessment (Adult) History of falling in the last 3 months, vc1 including since admission Yes- physiologic fall (2 pts) Confusion or Disorientation No (0 pts) Intoxicated or Sedated No (0 pts) Impaired Gait Yes (1 pt) Mobility Assist Device Used No (0 pt) Altered Elimination No (0 pt) Score/Fall Risk Level 3 or more points = High Risk Oriented to surroundings, Maintained a safe environment, Educated pt \\T\\ family on fall prevention, incl call for assistance when getting out of bed. Abuse screen: Denies threats or abuse. Nutritional screening: No deficits noted. Tuberculosis screening: No symptoms or risk factors identified. Assessment: 05:54 Pain: Complains of pain in Left ribs. Neuro: Level of Consciousness is awake, alert, vc1 obeys commands, Oriented to person, place, time, situation, Appropriate for age. Respiratory: Airway is patent Respiratory effort is even, weak, GI: No deficits noted. No signs and/or symptoms were reported involving the gastrointestinal system. : No deficits noted. No signs and/or symptoms were reported regarding the genitourinary system. 07:08 Reassessment: Patient appears in no apparent distress at this time. Patient and/or jb4 family updated on plan of care and expected duration. Pain level reassessed. Patient is alert, oriented x 3, equal unlabored respirations, skin warm/dry/pink. Pt desat to 85% on RA, placed on 2L NC, provider notified. receiving nurse notified. 08:15 Reassessment: No changes from previously documented assessment. Patient and/or family kr3 updated on plan of care and expected duration. Pain level reassessed. 09:05 Reassessment: No changes from previously documented assessment. Patient and/or family kr3 updated on plan of care and expected duration. Pain level reassessed. patient slumped over in bed, c/o not being able to breathe well when laid back, agreed it was safer for her to lay back just a little to keep from falling forward. patient is extremely tired. 10:12 Reassessment: No changes from previously documented assessment. Patient and/or family kr3 updated on plan of care and expected duration. Pain level reassessed. Respiratory: wet secretions audible when breathing. 11:17 Reassessment: patient saturation at 92-94 on 2 LPM NC, took patient off oxygen to kr3 discharge and saturation dropped to high 80's. Dr. Hernandez notified. Patient currently on breathing TX, will reevaluate the situation once TX completed.. 19:48 Cardiovascular: Rhythm is. aa9 Vital Signs: 05:51 BP 191 / 103; Pulse 95; Pulse Ox 99% on R/A; Weight 56.7 kg; Height 5 ft. 2 in. (157.48 vc1 cm); Pain 10/10; 06:45 BP 121 / 74; Pulse 56; Resp 18; Pulse Ox 90% on R/A; jb4 07:45 BP 111 / 69; Pulse 52; Resp 22; Pulse Ox 95% 2 lpm ; kr3 08:45 BP 96 / 59; Pulse 53; Resp 20; Pulse Ox 100% on 2 lpm NC; kr3 09:45 BP 106 / 59; Pulse 67; Resp 20; Temp 98.2(O); Pulse Ox 98% on 2 lpm NC; kr3 11:03 BP 107 / 62; Pulse 60; Resp 18; Pulse Ox 93% on 2 lpm NC; kr3 05:51 Body Mass Index 22.86 (56.70 kg, 157.48 cm) vc1 05:51 unable to count respirtations; pt unable to sit still, holding breath. vc1 ED Course: 05:32 Patient arrived in ED. ja2 05:35 Jesus Hernández MD is Attending Physician. rt 05:53 Triage completed. vc1 05:55 Arm band placed on right wrist. vc1 05:57 Eugene Vieira, RN is Primary Nurse. jb4 05:58 Patient has correct armband on for positive identification. Placed in gown. Bed in low vc1 position. Call light in reach. Pulse ox on. NIBP on. 06:21 Ribs Right XRAY In Process Unspecified. EDMS 06:21 Chest Single View XRAY In Process Unspecified. EDMS 06:30 Inserted saline lock: 18 gauge in right antecubital area, using aseptic technique. jb4 07:12 Attending Physician role handed off by Jesus Hernández MD enrike 07:12 Zach Hernandez MD is Attending Physician. enrike 08:12 Maicol Banks MD is Referral Physician. enrike 09:34 INCENTIVE SPIROMETRY Sent. kr3 11:14 US Extremity Venous W Compression Brian In Process Unspecified. EDMS 11:39 Coby Scott MD is Hospitalizing Provider. enrike 11:41 Maicol Banks MD is Hospitalizing Provider. enrike 11:45 Coby Scott MD is Hospitalizing Provider. enrike 19:08 IV discontinued, intact, bleeding controlled, No redness/swelling at site. Pressure kr3 dressing applied. 19:08 Inserted saline lock: 20 gauge in left antecubital area, using aseptic technique. kr3 19:48 No provider procedures requiring assistance completed. aa9 Administered Medications: 06:33 Drug: morphine 4 mg Route: IVP; Infused Over: 4 mins; Site: right antecubital; jb4 06:33 Drug: Zofran (Ondansetron) 4 mg Route: IVP; Site: right antecubital; jb4 06:33 Drug: Ketorolac 30 mg Route: IVP; Site: right antecubital; jb4 06:33 Drug: Lidoderm Patch 5 % (700 mg/patch) 1 patches Route: Topical; Site: affected area; jb4 06:33 Drug: Flexeril (cyclobenzaprine) 10 mg Route: PO; jb4 06:33 Drug: Gabapentin 300 mg Route: PO; jb4 08:41 Drug: SOLU-Medrol (methylPrednisoLONE) 125 mg Route: IVP; Site: right antecubital; kr3 08:41 Drug: predniSONE 40 mg Route: PO; kr3 08:41 Drug: Xopenex (levalbuterol) 2.5 mg Route: Inhalation; kr3 08:41 Drug: AtroVENT (ipratropium) Aerosol 0.5 mg Route: Inhalation; kr3 11:13 Drug: Xopenex (levalbuterol) 2.5 mg Route: Inhalation; kr3 Medication: 05:56 VIS not applicable for this client. vc1 Outcome: 08:15 Discharge ordered by . enrike 11:40 Decision to Hospitalize by Provider. enrike 19:48 Admitted to ER Hold. Please see [facility] for further documentation. aa9 19:48 Condition: stable 19:48 Instructed on the need for admit. 05/30 10:22 Patient left the ED. ss Signatures: Dispatcher [employer] EDMS Zahc Hernandez MD MD cha Smirch, Shelby, RN RN ss Eugene Vieira RN RN jb4 Alexander, Jessica ja2 Calcote, Vanessa, RN RN vc1 Nasima Hannah RN RN aa9 Reid, Kelley, RN RN kr3 Jesus Hernández MD MD rt Corrections: (The following items were deleted from the chart) 05/29 06:02 05:53 Social history: Smoking status: Patient reports the use of cigarette tobacco vc1 products, unknown amount vc1 10:18 09:05 Reassessment: No changes from previously documented assessment. Patient and/or kr3 family updated on plan of care and expected duration. Pain level reassessed. kr3 10:48 08:45 BP 89 / 59; Pulse 53bpm; Resp 20bpm; Pulse Ox 100% 2 lpm Nasal Cannula; kr3 kr3 10:48 09:45 BP 89 / 56; Pulse 67bpm; Resp 20bpm; Pulse Ox 98% 2 lpm Nasal Cannula; kr3 kr3 11:01 09:45 BP 106 / 59; Pulse 67bpm; Resp 20bpm; Pulse Ox 98% 2 lpm Nasal Cannula; kr3 kr3
[2022-05-29] MEDS ORDERED: METHYLPREDNISOLONE 125 MG INJ ONE (08:29)
[2022-05-29] MEDS ORDERED: LEVALBUTEROL 1.25 MG/3 ML NEB ONE ×2 (08:29→11:13)
[2022-05-29] MEDS ORDERED: IPRATROPIUM BROM 0.5MG/2.5ML ONE ×2 (08:29→19:47)
[2022-05-29] MEDS ORDERED: predniSONE 20 MG TAB ONE (08:31)
--- NOTE | 2022-05-29 11:17 | RAD REPORT ---
EXAM DESCRIPTION: US - Extrem Venous W Compress Brian - 05/29/2022 11:12 am CLINICAL HISTORY: PAIN Bilateral leg edema and swelling. COMPARISON: <Comparisons> TECHNIQUE: Real-time sonographic interrogation of the left and right lower extremity deep venous sys tems was performed. FINDINGS: Normal compressibility, flow augmentation, phasic flow and spontaneous flow is identified in both the left and right lower extremity deep venous systems. IMPRESSION: No sonographic evidence of left or right lower extremity deep venous thrombosis.
[2022-05-29 11:34] LABS: Arterial Blood Carboxyhemoglob 4.3 % (0-1.5); Blood O2 Saturation 87.7 % (92-98.5)
[2022-05-29] MEDS ORDERED: ACETAMINOPHEN 500 MG TAB PO PRN (13:39)
[2022-05-29] MEDS ORDERED: ONDANSETRON 4 MG/2 ML VIAL IV PRN (13:39)
[2022-05-29] MEDS: IPRATROPIUM BROM 0.5MG/2.5ML NEB SCH ×2 (14:00→19:45)
[2022-05-29] MEDS: ALBUTEROL 2.5 MG/3 ML NEB SOL NEB SCH ×2 (14:00→19:45)
--- NOTE | 2022-05-29 15:43 | RAD REPORT ---
EXAM DESCRIPTION: X-ray Ribs unilateral right RIBS CLINICAL HISTORY: 61 years Female BLUNT CHEST TRAUMA TECHNIQUE: 2 x-ray views of the right ribs were performed on 05/29/2022 at 6:10 AM. COMPARISON: CT lumbar spine performed on 10/27/2021 and chest x-ray performed on 06/13/2017 FINDINGS: There is no evidence of fracture or other acute osseous injury. No focal lytic or scleroti c bone lesions are seen. The visualized portions of the adjacent hemithorax are normal.There is no ev idence of a pneumothorax. There may be a small hiatal hernia. There is stable trace blunting of the l ateral costophrenic sulci. IMPRESSION: No evidence of acute osseous injury involving the right ribs. There may be a small hiata l hernia. Electronically signed by: Afshan Peters DO 05/29/2022 6:38 AM INTERNAL AUDITOR Due to temporary technical issues with the PACS/Fluency reporting system, reports are being signed by the in house radiologists without review as a courtesy to insure prompt reporting. The interpreting radiologist is fully responsible for the content of the report.
--- NOTE | 2022-05-29 15:45 | RAD REPORT ---
EXAM DESCRIPTION: X-ray single view chest. CLINICAL HISTORY: 61 years Female, BLUNT CHEST TRAUMA COMPARISON: Chest x-ray performed on 06/13/2017 TECHNIQUE: Single portable x-ray view of the chest performed on 05/29/2022 at 6:08 AM FINDINGS: Lungs are well-expanded and are grossly clear. There is chronic blunting of the lateral co stophrenic sulci with scarring and/or atelectasis suspected in the lung bases. There is no evidence o f a pneumothorax. The cardiac silhouette is normal in size and configuration. The mediastinal contours are normal. No acute osseous abnormality is identified. No acute soft tissue abnormalities are seen. Lines and tubes: None. Free air: None IMPRESSION: No evidence of acute intrathoracic disease. There is scarring and/or atelectasis suspect ed in the lung bases. Electronically signed by: Afshan Peters DO 05/29/2022 6:40 AM SUPERVISOR CLEANING AND ANNEALING Due to temporary technical issues with the PACS/Fluency reporting system, reports are being signed by the in house radiologists without review as a courtesy to insure prompt reporting. The interpreting radiologist is fully responsible for the content of the report.
[2022-05-29] MEDS: METHYLPREDNISOLONE 40 MG INJ IV SCH (17:00)
[2022-05-29] MEDS ORDERED: AMPICILLIN/SULBACT 3 GM in NA CHLORIDE 0.9% 100 ML IVPB SCH (18:00)
[2022-05-29] MEDS ORDERED: AMPICILLIN/SULBACTAM 3GM/VIAL ONE (18:15)
[2022-05-29] MEDS ORDERED: METHYLPREDNISOLONE 40 MG INJ ONE (18:15)
[2022-05-29] MEDS ORDERED: NA CHLORIDE 0.9% 100 ML IV ONE (18:15)
[2022-05-29] MEDS ORDERED: ALBUTEROL 2.5 MG/3 ML NEB SOL ONE (19:46)
[2022-05-29 21:07] VITALS: BMI 22.8
--- NOTE | 2022-05-29 21:10 | P.HP ---
Certification for Inpatient Patient admitted to: Observation With expected LOS: <2 Midnights Patient will require the following post-hospital care: None Practitioner: I am a practitioner with admitting privileges, knowledge of patient current condition, hospital course, and medical plan of care. Services: Services provided to patient in accordance with Admission requirements found in Title 42 Section 412.3 of the Code of Federal Regulations Patient History Date of Service: 05/29/22 Reason for admission: Acute shortness of breath History of Present Illness: Patient is a 61-year-old female with history of COPD-emphysema. She comes into the hospital after developing shortness of breath. Patient has been having a hard time breathing and she fell a week ago. He hit the right side of her ribs on an appliance in her kitchen. She stated that she was told she had a rib fracture. All the imaging studies she has had done in the last week did not i ndicate a rib fracture. She does have some bruising there and she hurts whenever she takes a deep inspiration. She was placed on high-flow oxygen when she arrived. Currently she is on room air and satting 96%. She will be admitted to the hospital for observation. She normally follows up with a local field merchandiser and will consult Pulmonary for further recommendations. Anticipate discharge over the next 24 hours. Allergies No Known Drug Allergies Allergy (Verified 03/31/17 04:08) Unknown Home Medications: Albuterol Inhaler [Ventolin Inhaler] 2 puff IH Q6H PRN #240 hfa.aer.ad 09/12/21 Amlodipine [Norvasc*] 10 mg PO DAILY #30 tab 09/12/21 Budesonide/Glycopyr/Formoterol [Breztri Aerosphere Inhaler] 5.9 gm IH BID 30 Days #120 hfa.aer.ad 09/12/21 Budesonide/Glycopyr/Formoterol [Breztri Aerosphere Inhaler] 10.7 gm IH BID 30 Days hfa.aer.ad 09/12/21 predniSONE [Deltasone] 10 mg PO BID #20 tab 09/12/21 Oxycodone HCl [Oxycontin] 1 tab PO BID 05/29/22 - Past Medical/Surgical History Diabetic: No -: Hypertension -: Dyslipidemia -: Seizure -: Chronic low back pain -: COPD -: Appendectomy -: Tonsillectomy -: Abdominal surgery -: Morphine pump placement Psychosocial/ Personal History: Patient lives at home with family. - Family History Mother Medical History: Diabetes Father Medical History: Cancer - Social History Smoking Status: Former smoker Alcohol use: No CD- Drugs: No Caffeine use: Yes Review of Systems 10-point ROS is otherwise unremarkable Physical Examination - Vital Signs Temperature: 98 F Blood Pressure: 140/80 Pulse: 88 Respirations: 22 Pulse Ox (%): 95 - Physical Exam General: Alert, In no apparent distress, Oriented x3 HEENT: Atraumatic, PERRLA, Mucous membr. moist/pink, EOMI, Sclerae nonicteric Neck: Supple, 2+ carotid pulse no bruit, No LAD, Without JVD or thyroid abnormality Respiratory: Diminished, Expiratory wheezes Cardiovascular: Regular rate/rhythm, Normal S1 S2, No murmurs Gastrointestinal: Normal bowel sounds, Soft and benign, Non-distended, No tenderness Musculoskeletal: No clubbing, No swelling, Tenderness (right ribcage) Integumentary: No rashes Neurological: Normal gait, Normal speech, Normal strength at 5/5 x4 extr, Normal tone, Sensation intact, Normal affect Lymphatics: No axilla or inguinal lymphadenopathy - Studies Laboratory Data (last 24 hrs) 05/29/22 06:41: Sodium 138, Potassium 3.6, BUN 19 H, Creatinine 0.83, Glucose 94, Total Bilirubin 0.4, AST 15, ALT 24, Alkaline Phosphatase 50 05/29/22 06:41: WBC 9.70, Hgb 13.3, Hct 38.9, Plt Count 265 Assessment & Plan - Problems (Diagnosis) (1) COPD with acute exacerbation Current Visit: Yes Status: Acute (2) Status post fall Current Visit: Yes Status: Acute (3) Pleuritic chest pain Current Visit: Yes Status: Acute (4) Seizure Current Visit: Yes Status: Acute - Plan -nebs, steroids, and antibiotics -O2 per protocol. -strict BP & BS control -outpatient pulmonary function testing -repeat chest x-ray -pulmonary consultation -anti-epileptics Discharge Plan: Home Plan to discharge in: 24 Hours - Advance Directives Does patient have a Living Will: Yes Does patient have a Durable POA for Healthcare: Yes - Code Status/Comfort Care Code Status Assessed: Yes Code Status: Full Code Critical Care: No Time Spent Managing PTS Care (In Minutes): 45
[2022-05-29 21:24] VITALS: O2SAT 93
[2022-05-29] MEDS ORDERED: HYDROCODONE/APAP 10/325 TAB PO PRN (21:24)
[2022-05-29] MEDS: OXYCODONE *CR* 10 MG TAB PO SCH (21:34)
[2022-05-29] MEDS ORDERED: OXYCODONE *CR* 10 MG TAB PO ONE (21:38)
[2022-05-29 21:49] LABS: SARS-CoV-2 Antigen Rapid Res Negative (Negative)
[2022-05-29] MEDS ORDERED: Levofloxacin500mg IV 500 MG/100 ML BAG IV SCH (22:00)
[2022-05-29] MEDS ORDERED: Levofloxacin500mg IV 500 MG/100 ML BAG IV ONE (23:23)
[2022-05-30] MEDS: METHYLPREDNISOLONE 40 MG INJ IV SCH ×2 (01:00→09:00)
[2022-05-30] MEDS ORDERED: METHYLPREDNISOLONE 40 MG INJ ONE ×2 (01:27→08:51)
[2022-05-30] MEDS ORDERED: IPRATROPIUM BROM 0.5MG/2.5ML ONE ×2 (01:39→09:16)
[2022-05-30] MEDS ORDERED: ALBUTEROL 2.5 MG/3 ML NEB SOL ONE ×2 (01:39→09:16)
[2022-05-30] MEDS: ALBUTEROL 2.5 MG/3 ML NEB SOL NEB SCH (02:15)
[2022-05-30] MEDS: IPRATROPIUM BROM 0.5MG/2.5ML NEB SCH (02:15)
[2022-05-30 05:16] LABS: Absolute Lymphocytes (CBC) 0.3 K/uL (0.7-4.9); Hematocrit 38.2 % (36.0-45.0); MCV 93.8 fL (80-100); MPV 8.1 fL (7.6-11.3); RBC Red Blood Cell Count 4.08 M/uL (3.86-4.86)
[2022-05-30 05:35] LABS: Albumin 3.1 g/dL (3.4-5.0); Bilirubin Total 0.3 mg/dL (0.2-1.0); Magnesium 2.5 mg/dL (1.6-2.4); Phosphorus 2.9 mg/dL (2.5-4.9); Potassium 3.8 mmol/L (3.5-5.1)
[2022-05-30 05:54] LABS: Blood Morphology Comment NOT SEEN (NOT SEEN); Platelet Estimate ADEQ
[2022-05-30] MEDS ORDERED: ALPRAZOLAM 0.5 MG TABLET PO ONE (08:14)
[2022-05-30 08:36] VITALS: BP 164/75; TEMP 98.7
[2022-05-30] MEDS ORDERED: OXYCODONE *CR* 10 MG TAB PO ONE (08:50)
[2022-05-30] MEDS ORDERED: AMLODIPINE 10 MG TAB ONE (08:51)
[2022-05-30] MEDS ORDERED: LIDOCAINE 4% PATCH ONE (08:51)
[2022-05-30] MEDS ORDERED: ENOXAPARIN 40 MG/0.4 ML SQ ONE (08:51)
[2022-05-30] MEDS ORDERED: ENOXAPARIN 40 MG/0.4 ML SQ SCH (09:00)
[2022-05-30] MEDS ORDERED: AMLODIPINE 10 MG TAB PO SCH (09:00)
[2022-05-30] MEDS ORDERED: LIDOCAINE 5% OINT 30 GM TUBE TOP SCH (09:00)
[2022-05-30] MEDS ORDERED: LIDOCAINE 5% 30 GM TUBE (for wound healing center only) TOP SCH (09:00)
[2022-05-30] MEDS: OXYCODONE *CR* 10 MG TAB PO SCH (09:00)
--- NOTE | 2022-05-30 13:42 | EKG ---
Test Date: 2022-05-29 Test Time: 07:01:18 Sock Liner: JULIA MEASUREMENT RESULTS: Intervals: Rate: 57 HI: 164 QRSD: 82 QT: 442 QTc: 430 Davis: P: 67 HI: 164 QRS: 20 T: 61 INTERPRETIVE STATEMENTS: Sinus bradycardia T wave abnormality, consider anterior ischemia Abnormal ECG Compared to ECG 09/11/2021 16:44:47 T-wave abnormality now present Possible ischemia now present Sinus rhythm no longer present Left bundle-branch block no longer present Electronically Signed On 05-30-22 13:39:07 HOME AGENT by Toby Castanon
== END 2022-05-30 10:20 | disposition home or self-care (01) ==
LOC: ER 05:32 → ERHOLD 14:49
PROVIDERS: ADMIT Hospitalist; ATTEND Hospitalist
PROC: 5A09357 Assistance with Respiratory Ventilation, Less than 24 Consecutive Hours, Continuous Positive Airway Pressure (ICD-10-PCS; principal; 2022-05-29)
DX: J44.1 Chronic obstructive pulmonary disease with (acute) exacerbation (principal); J96.21 Acute and chronic respiratory failure with hypoxia; R07.81 Pleurodynia; R56.9 Unspecified convulsions; S23.41XA Sprain of ribs, initial encounter; W19.XXXA Unspecified fall, initial encounter; I10 Essential (primary) hypertension; E78.5 Hyperlipidemia, unspecified; G89.29 Other chronic pain; Z20.822 Contact with and (suspected) exposure to COVID-19
CPT/HCPCS: 93005; 85025 ×2; 36415; 83735; 84100; 80061; 83605; 84484; 80053 ×2; 84145; 83880 ×2; 71045; 71100; 93970; 94002; 82805; 94760 ×2; 96375; 96374; 99285; 87811; 94660; J7614 ×2; J7512; J7613 ×3; J7644 ×4; J1650; J2001 ×2; J2930; J0295; J2405; J2920 ×3; G0378 ×3

== ENCOUNTER 2022-11-04 13:29 | Emergency (ER) | payer OTHER ==
--- OUTSIDE RECORDS SUMMARY | 2022-11-04 13:41 | XMS REPORT | Continuity of Care Document ---
:1960 Author Organization [facility] t Address [address] [place] [address] Care Team Providers Name Role Phone Sharpless Primary Care Physician Hero Tamez Attending Clinician Unavailable Loern Lynn Attending Clinician Unavailable Bailey Salomon Attending Clinician Unavailable CALLUM CERRATO Attending Clinician Unavailable CHRISTELLE GARDNER Admitting Clinician Unavailable Payers Payer Name Policy Type Policy Number Effective Date Expiration Date S ource MEDICARE MB [id number] 2008 [facility] NOVITAS 00:00: [facility] C1 [id number] [facility] Problems Condition Condition Condition Status Onset Resolution Last Treating Co mments Source Name Details Category Date Date Treatment Clinician Date Alcohol Alcohol Disease Recurre [facility] intox[facility] intoxicati nce 08-29 Randee kes on on 00:00: Medical 00 [place] Suicidal Suicidal Disease Active [facility] 00 [place] Fall, Fall, Disease Active [facility] initial initial 08-29 [facility] encounter encounter 00:00: Medi yoan 00 [place] Allergic Allergic Problem Commo n rhinitis rhinitis [facility] Hypothyroi Hypothyroi Problem C ommon dism dism [facility] Constipati Constipati Problem C ommon on on [facility] Hyperlipid Hyperlipid Problem C ommon emia emia [facility] [id number] Depression Problem Com mon with Spirit anxiety [facility] Hypotensio Hypotensio Problem C ommon n n [facility] Obesity Mild Problem Common obesity [facility] Seizure Seizures Problem Common [facility] Localized Localized Problem Com mon swelling, swelling, Spir it mass and mass and - CHI lump, neck lump, neck [facility] [id number] Primary Problem Common insomnia [facility] [id number] Localized Problem Comm on osteoporos Spirit is, - CHI unspecifie [facility] pathologic Medica l al [place] fracture presence [id number] 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 [facility] Nicotine Nicotine Problem Commo n dependence dependence Sp wanda [facility] Vitamin D Vitamin D Problem Com mon deficiency deficiency [facility] Nausea and Intractabl Problem C ommon vomiting e vomiting Spir it [facility] [id number] Gastroesop Problem Co mmon hageal Spirit reflux - [facility] disease [facility] esophagiti Medica l s Center [id number] Urinary Problem Commo n frequency [facility] Essential Benign Problem Common hypertensi essential Spi rit on HTN [facility] [id number] [place]iting [place] [id number] without Spirit nausea, - [facility]I intractabi [facility] vomiting Medical not Center specified, unspecifie d vomiting type Tobacco Cigarette Problem Commo n user nicotine Spirit dependence - [facility] without complicati [facility] Epigastric Epigastric Problem C ommon pain pain [facility] Abnormal Abnormal Problem Commo n weight weight Spirit loss loss [facility] Allergies, Adverse Reactions, Alerts Allergy Allergy Status Severity Reaction(s) Onset Inactive Treating Comm ents Source Name Type Date Date Clinician NO KNOWN Allergy Active [facility] morphine morphine Active nausea Common [facility] Social History Social Habit Start Date Stop Date Quantity Comments Source History of Current Smoker [facility] - Tobacco Use [facility] Alcohol intake 2016-08-28 2016-08-28 Current drinker [facility] Farida Nathan 00:00:00 00:00:00 of [facility] (finding) Sex Ass[birth year] At [birth year] LIZBETH Martinez 00:00:00 00:00:00 [facility] Center Smoking Status Start Date Stop Date Source Current Smoker 2022-01-16 00:00:00 [facility] Medications Ordered Filled Start Stop Current Ordering Indication Dosage Frequency Signature Comments Components Source Medication Medication Date Date Medication? Clinician (SIG) Name Name Nystatin Nystatin 2020-06- No 1{appli BID Nystatin [id number] 2-04 07-06 cation_ 149841 UNIT/GM UNIT/GM 00:00: 00:00 to_affe UNIT/GM 00 :00 cted_ar ea} Triamcinolo Triamcinolo 2020-0 Yes Na Salomon 1 Common ne ne 5-08 applicatio Spirit Acetonide Acetonide 00:00: n to - C HI 00 affected [facility] Triamcinolo Triamcinolo 2020-0 No 1{appli BID Triamcinol [...] t ER ER 00:00: - [facility] Metoprolol Metoprolol 2020-0 No 1{table [...] 00:00: ER 25 MG 00 Xanax Xanax 2018- Yes Na Salomon 1 tablet Comm on -16 Spirit 00:00: - [facility] 00 [facility] Xanax 0.5 Xanax 0.5 2018- No 1{table BID Xanax 0.5 MG MG 2-16 t} MG 00:00: 00 Xanax 0.5 Xanax 0.5 2018-1 No 1{table BID Xanax 0.5 MG MG 2-16 t} MG 00:00: 00 Xanax 0.5 Xanax 0.5 2019-1 No 1{table BID Xanax 0.5 MG MG 2-16 t} MG 00:00: 00 Xanax 0.5 Xanax 0.5 2019-1 No 1{table BID Xanax 0.5 MG MG 2-16 t} MG 00:00: 00 Xanax 0.5 Xanax 0.5 2018-1 No 1{table BID Xanax 0.5 MG MG 2-16 t} MG 00:00: 00 Xanax 0.5 Xanax 0.5 2018- No 1{table BID Xanax 0.5 MG MG [...] MG 2-16 t} MG 00:00: 00 UNKNOWN Yes Blood [facility] 14[facility]35: med does Medical 17 not know Center name nor dose . traZODone Yes 50mg QD Take [address] (DESY[facility]) 3-28 by mouth [facility] 50 MG 14:35: nightly Medical tablet 17 Does not Center know dose . cholecalcif Yes 5000U Q7D Take 5,[address] michelle, 3-28 Units by [facility] vitamin D3, 14:35: mouth once Medical 5,000 unit 17 a week. Center Tab UNKNOWN Yes Blood [facility] 3[facility] 14:35: med does Medical 17 not know Center name nor dose . traZODone Yes 50mg QD Take [address] (DESYREL) 3-28 by mouth [facility] 50 MG 14:35: nightly Medical tablet 17 Does not Center know dose . cholecalcif Yes 5000U Q7D Take 5,[address] [facility]le, 3-28 Units by [facility] vitamin D3, 14:35: mouth once Medical 5,000 unit 17 a week. Center Tab UNKNOWN Yes Blood [facility] 3[facility] 14:35: med does Medical 17 not know Center name nor dose . traZODone Yes 50mg QD Take [address] ([facility]YREL) 3-28 by mouth [facility] 50 MG 14:35: nightly Medical tablet 17 Does not Center know dose . cholecalcif Yes 5000U Q7D Take 5,[address] [facility]le, 3-28 Units by [facility] vitamin D3, 14:35: mouth once Medical 5,000 unit 17 a week. Center Tab UNKNOWN Yes Blood [facility] 3[facility] 14:35: med does Medical 17 not know Center name nor dose . traZODone Yes 50mg QD Take [address] (DESYREL) 3-28 by mouth [facility] 50 MG 14:35: nightly Medical tablet 17 Does not Center know dose . cholecalcif Yes 5000U Q7D Take 5,[address] [facility]le, 3-28 Units by [facility] vitamin D3, 14:35: mouth once Medical 5,000 unit 17 a week. Center Tab UNKNOWN Yes Blood [facility] 3[facility] 14:35: med does Medical 17 not know Center name nor dose . traZODone Yes 50mg QD Take [address] (DESYREL) 3-28 by mouth [facility] 50 MG 14:35: nightly Medical tablet 17 Does not Center know dose . cholecalcif Yes 5000U Q7D Take 5,[address] michelle, 3-28 Units by [facility] vitamin D3, 14:35: mouth once Medical 5,000 unit 17 a week. Center Tab traZODone Yes 50mg QD Take [address] (DESYREL) 3-28 by mouth [facility] 50 MG 14:35: nightly Medical tablet 17 Does not Center know dose . cholecalcif Yes 5000U Q7D Take 5,[address] michelle, 3-28 Units by [facility] vitamin D3, 14:35: mouth once Medical 5,000 unit 17 a week. Center Tab UNKNOWN Yes Blood [facility] 3[facility] 14:35: med does Medical 17 not know Center name nor dose . Levothyroxi Levothyroxi Yes Na Salomon 1 tablet Common ne Sodium ne Sodium on an Spir it empty - CHI stomach in [facility] Furosemide Furosemide Yes Na Salomon 1 tablet Common [facility] Cymbalta Cymbalta Yes Na Salomon 1 capsule Common [facility] Cozaar Cozaar Yes Na Salomon 1 tablet Comm on [facility] Pravastatin Pravastatin Yes Na Salomon 1 tablet Common Sodium Sodium [facility] Omeprazole Omeprazole Yes Na Salomon 1 capsule Common [facility] ProAir HFA ProAir HFA Yes Na Salomon 1 puff as Common needed [facility] Ambien Ambien Yes Na Salomon 1 tablet Comm on at bedtime Spirit as needed [facility] Phenytoin Phenytoin Yes Na Salomon not Co mmon defined [facility] Furosemide Furosemide Yes Na Salomon 1 tablet Common [facility] Advair Advair Yes Na Salomon 1 puff Common Diskus Diskus [facility] Dilaudid Dilaudid Yes Na Salomon 1 tablet Common as needed [facility] Trazodone Trazodone Yes Na Salomon 1 tablet Common HCl HCl at bedtime Spirit as needed [facility] Potassium Potassium Yes Na Salomon not Co mmon defined [facility] Dilantin Dilantin Yes Na Salomon 5 capsule Common [facility] Amitiza Amitiza Yes Na Salomon 1 capsule C ommon with food [facility] and water [facility] Phenytoin Phenytoin No Phenytoin Potassium Potassium No [...] Dilaudid 4 MG MG t_as_ne MG eded} Advair Advair No 1{puff} BID Advair Diskus [...] Dilaudid 4 MG MG t_as_ne MG eded} Advair Advair No 1{puff} BID Advair Diskus [...] Dilaudid 4 MG MG t_as_ne MG eded} Advair Advair No 1{puff} BID Advair Diskus Diskus Diskus 250-50 250-50 250-50 MCG/DOSE MCG/DOSE MCG/DOSE Potassium Potassium No Potassium Omeprazole Omeprazole No 1{capsu QD Omeprazole 40 MG 40 MG le} 40 MG Dilantin Dilantin No 5{capsu Dilantin 100 MG 100 MG le} 100 MG Cozaar 100 Cozaar 100 No 1{table QD Cozaar 100 MG MG t} MG Ambien 10 Ambien 10 No 1{table QD Ambien 10 MG MG t_at_be MG dtime_a s_neede d} Metoprolol Metoprolol No 1{table QD Metoprolol Succinate Succinate t} Succinate ER 25 MG ER 25 MG ER 25 MG Cymbalta 60 Cymbalta 60 No 1{capsu [...] Status Commen ts Source Name Name Janelle Luis 2019-02-13 Completed [facility] 11:33:00 - [facility] FluAD FluAD 2019-02-13 Completed [facility] 11:33:00 - [facility] FluAD FluAD 2019-02-13 Completed [facility] 11:33:00 - [facility] FluAD FluAD 2019-02-13 Completed [facility] 11:33:00 - [facility] FluAD FluAD 2019-02-13 Completed [facility] 11:33:00 - [facility] FluAD FluAD 2019-02-13 Completed [facility] 11:33:00 - [facility] FluAD FluAD 2019-02-13 Completed [facility] 11:33:00 - [facility] FluAD FluAD 2019-02-13 Completed [facility] 11:33:00 - [facility] FluAD FluAD 2019-02-13 Completed [facility] 11:33:00 - [facility] FluAD FluAD 2019-02-13 Completed [facility] 11:33:00 - [facility] FluAD FluAD 2019-02-13 Completed [facility] 11:33:00 - [facility] FluAD FluAD 2019-02-13 Completed [facility] 11:33:00 - [facility] FluAD FluAD 2019-02-13 Completed [facility] 00:00:00 - [facility] Vital Signs Vital Name Observation Time Observation Value Comments Source height 2022-03-17 11:40:00 62.00 [in_i] Common S [facility] Medical C enter weight 2022-03-17 11:40:00 127 [lb_av] [facility] bmi 2022-03-17 11:40:00 23.23 kg/m2 [facility] Medical C enter Procedures This patient has no known procedures. Encounters Start End Encounter Admission Attending Care Care Encounter Source Date/Time Date/Time Type Type Clinicians Facility Department ID 2022-10-18 Outpatient TamezFRANCHESKA [facility] [id number] Common 09:32:00 [facility] [id number] [facility] 2022-08-09 Outpatient FRANCHESKA Lynn [facility] [id number] Common 09:29:01 Loren [address] [facility] 2022-01-13 Outpatient Salomon, Na STLMLC STLMLC [id number] Common 10:39:00 [id number] [facility] 2021-10-17 Outpatient Salomon, Na STLMLC STLMLC [id number] Common 15:22:39 [facility] 2021-06-29 Outpatient Salomon, Na STLMLC STLMLC [id number] Common 12:36:25 [id number] [facility] 2021-06-29 Outpatient Salomon, Na STLMLC STLMLC [id number] Common 12:35:33 [id number] [facility] 2021-06-29 Outpatient Salomon, Na STLMLC STLMLC [id number] Common 12:07:12 [id number] [facility] 2021-06-29 Outpatient Salomon, Na STLMLC STLMLC [id number] Common 12:06:16 [id number] [facility] 2021-06-29 Outpatient Salomon, Na STLMLC STLMLC [id number] Common 11:38:53 [id number] [facility] 2021-06-29 Outpatient Salomon, Na STLMLC STLMLC [id number] Common 11:36:25 [id number] [facility] 2021-06-29 Outpatient Salomon, Na STLMLC STLMLC [id number] Common 11:17:48 [id number] [facility] 2021-06-29 Outpatient Salomon, Na STLMLC STLMLC [id number] Common 11:01:55 [id number] [facility] 2022-07-04 2022-07-04 (TEL) STLMLC STLMLC [id number] Co mmon 00:00:00 00:00:00 [facility] 2022-06-12 2022-06-12 (TEL) STLMLC STLMLC [id number] Co mmon 00:00:00 00:00:00 [facility] 2022-03-17 2022-03-17 OFFICE STLMLC STLMLC [id number] Co mmon 00:00:00 00:00:00 [facility] - [facility] LEVEL 4 [facility] 2021-12-28 2021-12-28 (TEL) STLMLC STLMLC [id number] Co mmon 00:00:00 00:00:00 [facility] 2021-10-17 2021-10-17 OFFICE STLMLC STLMLC [id number] Co mmon 00:00:00 00:00:00 [facility] PT - CHI LEVEL 4 [facility] 2021-10-14 2021-10-14 (TEL) STLMLC STLMLC [id number] Co mmon 00:00:00 00:00:00 [facility] 2021-10-04 2021-10-04 (TEL) STLMLC STLMLC [id number] Co mmon 00:00:00 00:00:00 [facility] 2021-09-14 2021-09-14 (TEL) STLMLC STLMLC [id number] Co mmon 00:00:00 00:00:00 [facility] 2021-09-06 2021-09-06 (TEL) STLMLC STLMLC [id number] Co mmon 00:00:00 00:00:00 [facility] 2021-08-29 2021-08-29 (TEL) STLMLC STLMLC [id number] Co mmon 00:00:00 00:00:00 [facility] 2021-05-06 2021-05-06 (TEL) STLMLC STLMLC [id number] Co mmon 00:00:00 00:00:00 [facility] 2021-04-27 2021-04-27 (TEL) STLMLC STLMLC [id number] Co mmon 00:00:00 00:00:00 [facility] 2020-10-21 2020-10-21 Outpatient STLMLC STLMLC [id number] Common 00:00:00 00:00:00 [facility] 2020-10-20 2020-10-20 Outpatient STLMLC STLMLC [id number] Common 00:00:00 00:00:00 [facility] 2020-08-06 2020-08-06 Outpatient STLMLC STLMLC [id number] Common 00:00:00 00:00:00 [facility] 2020-07-22 2020-07-22 Outpatient STLMLC STLMLC [id number] Common 00:00:00 00:00:00 [facility] 2020-03-24 2020-03-24 Outpatient STLMLC STLMLC [id number] Common 00:00:00 00:00:00 [facility] 2020-01-24 2020-01-24 [facility] [id number] Common 12:20:00 12:20:[address] [facility] 2020-01-23 2020-01-23 [facility] [id number] Common 14:00:00 14:00:[address] [facility] 2020-01-23 2020-01-23 [facility] [id number] Common 13:00:00 13:00:[address] [facility] 2020-01-02 2020-01-02 [facility] [id number] Common 15:48:00 15:48:[address] [facility] 2019-10-10 2019-10-10 [facility] [id number] Common 14:09:00 14:09:[address] [facility] 2019-06-23 2019-06-23 [facility] [id number] Common 16:20:00 16:20:[address] [facility] 2019-05-19 2019-05-19 [facility] [id number] Common 10:55:00 10:55:[address] [facility] 2019-04-01 2019-04-01 [facility] [id number] Common 16:27:00 16:27:[address] [facility] 2019-04-01 2019-04-01 [facility] [id number] Common 15:56:00 15:56:[address] [facility] 2019-04-01 2019-04-01 [facility] [id number] Common 10:41:00 10:41:[address] [facility] 2019-02-13 2019-02-13 [facility] [id number] Common 10:20:00 10:20:[address] [facility] 2019-02-10 2019-02-10 [facility] [id number] Common 16:38:00 16:38:[address] [facility] 2018-05-23 2018-05-23 [facility] [id number] Common 09:00:00 09:00:[address] [facility] 2018-04-15 2018-04-15 [facility] [id number] Common 11:00:00 11:00:[address] [facility] 2018-03-15 2018-03-15 [facility] [id number] Common 11:19:00 11:19:[address] [facility] 2018-02-21 2018-02-21 [facility] [id number] Common 10:45:00 10:45:[address] [facility] 2017-12-04 2017-12-04 [facility] [id number] Common 14:02:00 14:02:[address] [facility] 2017-11-21 2017-11-21 [facility] [id number] Common 15:15:00 15:15:[address] [employer] [address] [facility] Results Test Description Test Time Test Comments [...] ng/mLAmphetamine/ 1000 ng/mL MethamphetamineOxycodone 300 ng/mLURINALYSIS W/ [id number] 05:47:00 Test Item Value Reference Range Interpretation [...] 516) SOURCE(BEAKER) (test code = Urine, Voided 7705) BASIC METABOLIC [id number] 02:25:00 Test Item Value Reference Range Interpretation [...] PATIEN TS. CBC W/PLT COUNT & AUTO [id number] 02:17:00 Test Item Value Reference Range Interpretation [...] K/ L 0.00-0.20 (test code = 417) [id number] 20:56:00 Test Item Value Reference Range Interpretation Comments ETHANOL (BEAKER) (test code = 400) 259 mg/dL <=10 H BASIC METABOLIC [id number] 20:55:00 Test Item Value Reference Range Interpretation [...] TO CALCULA TE ESTIMATED GFR. HEPATIC FUNCTION [id number] 20:54:00 Test Item Value Reference Range Interpretation [...] 6-55 347) CBC W/PLT COUNT & AUTO [id number] 20:36:00 Test Item Value Reference Range Interpretation [...]
[2022-11-04] MEDS ORDERED: THIAMINE 200 MG/2 ML INJ ONE (14:08)
[2022-11-04] MEDS ORDERED: NA CHLORIDE 0.9% 100 ML ONE (14:09)
[2022-11-04] MEDS ORDERED: LORazepam 2 MG/ML VIAL ONE (14:09)
[2022-11-04 14:55] LABS: Absolute Lymphocytes (CBC) 1.4 K/uL (0.7-4.9); Hematocrit 34.4 % (36.0-45.0); Lymphocytes % 23.9 % (15.3-44.8); MCV 99.2 fL (80-100); MPV 6.8 fL (7.6-11.3); RBC Red Blood Cell Count 3.47 M/uL (3.86-4.86)
[2022-11-04 15:01] LABS: ALT/SGPT 39 U/L (13-56); AST/SGOT 37 U/L (15-37); Albumin 3.3 g/dL (3.4-5.0); Alkaline Phosphatase 81 U/L (45-117); BUN Blood Urea Nitrogen 18 mg/dL (7-18); Bicarbonate 28 mEq/L (21-32); Bilirubin Direct 0.2 mg/dL (0-0.2); Bilirubin Indirect, Calculated 0.2 mg/dL (0.2-0.8); Bilirubin Total 0.4 mg/dL (0.2-1.0); Glomerular Filtration Rate 101 ml/min (=/>90); Glucose Level 80 mg/dL (74-106); Protein, Total 6.4 g/dL (6.4-8.2); Sodium Level 141 mEq/L (136-145)
--- NOTE | 2022-11-04 15:52 | RAD REPORT ---
EXAM DESCRIPTION: CT - Head Brain Wo Cont - 11/04/2022 3:37 pm CLINICAL HISTORY: CONFUSED COMPARISON: SINUS W O CONTRAST dated 03/16/2014; HEAD BRAIN W O CONTRAST dated 06/12/2011 TECHNIQUE: All CT scans are performed using dose optimization technique as appropriate and may inclu de automated exposure control or mA/KV adjustment according to patient size. FINDINGS: No intracranial hemorrhage, hydrocephalus or extra-axial fluid collection.No areas of brai n edema or evidence of midline shift. The paranasal sinuses and mastoids are clear. The calvarium is intact. IMPRESSION: No acute intracranial abnormality.
[2022-11-04 16:20] LABS: Barbiturates NEGATIVE (NEGATIVE); Benzodiazepines NEGATIVE (NEGATIVE); Cocaine NEGATIVE (NEGATIVE); METHAMPHETAM NEGATIVE (NEGATIVE); Methadone NEGATIVE (NEGATIVE); Opiates NEGATIVE (NEGATIVE); Phencyclidine NEGATIVE (NEGATIVE); THC Cannibis NEGATIVE (NEGATIVE)
[2022-11-04] MEDS ORDERED: ONDANSETRON 4 MG/2 ML VIAL ONE (18:19)
--- NOTE | 2022-11-04 18:19 | ER ---
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 A\\T\\O x 2. Pt keeps saying she wants to and go meet Carlo. Coronavirus screen: At this time, the client does not indicate any symptoms associated with coronavirus-19. Ebola Screen: No symptoms or risks identified at this time. Onset of symptoms is unknown. Care prior to arrival: Medication(s) given: Normal saline infusion, 1000 mL, IV initiated. 20 GA, in the right antecubital area. 13:39 Method Of Arrival: EMS: [place] [address] 13:39 Acuity: MARILYNN 2 jl7 18:47 Initial Sepsis Screen: Does the patient meet any 2 criteria? No. Patient's initial kr3 sepsis screen is negative. Does the patient have a suspected source of infection? No. Patient's initial sepsis screen is negative. Risk Assessment: Do you want to hurt yourself or someone else? Patient reports no desire to harm self or others. Historical: - Allergies: 13:41 Unable to obtain; jl7 - Home Meds: 13:42 Unable to obtain [Active]; jl7 - PMHx: 13:41 Seizure; Hypertensive disorder; Hyperlipidemia; chronic back pain; ETOH abuse; jl7 - PSHx: 13:41 Appendectomy; jl7 - Immunization history:: Adult Immunizations unknown. - Social history:: Smoking status: unknown. Screenin:47 [facility] ED Fall Risk Assessment (Adult) History of falling in the last 3 months, kr3 including since admission No falls in past 3 months (0 pts). Abuse screen: Denies threats or abuse. Nutritional screening: No deficits noted. Tuberculosis screening: No symptoms or risk factors identified. Assessment: 14:35 Reassessment: o2 88 consistently applied 02 . kr3 16:50 Reassessment: patient demanding to go home, wants to see doctor now. . kr3 16:50 General: Appears in no apparent distress. unkempt, Behavior is agitated, Smells of kr3 alcohol. Pain:. Neuro: Level of Consciousness is awake, alert, Oriented to person, place, time, situation. Cardiovascular: No deficits noted. Respiratory: No deficits noted. GI: No deficits noted. : No deficits noted. EENT: No deficits noted. Derm: No deficits noted. 17:15 Reassessment: removed O2, patient saturation staying at 100% on 2 LPM. kr3 18:16 Reassessment: doctor at bedside speaking with patient. Patient denied and SI or HI. kr3 patient stated "I would never hurt anyone or myself. I love people".. 18:35 Reassessment: patient called friend to come and pick her up. kr3 Vital Signs: 15:00 BP 141 / 82; Pulse 74; Resp 18; Pulse Ox 100% on 2 lpm NC; kr3 16:00 BP 150 / 89; Pulse 67; Resp 18; Pulse Ox 100% on 2 lpm NC; kr3 16:52 BP 168 / 88; Pulse 68; Resp 18; Pulse Ox 100% on 2 lpm NC; kr3 18:44 BP 161 / 85; Pulse 97; Resp 18; Pulse Ox 100% on R/A; kr3 ED Course: 13:35 Maintain EMS IV. Dressing intact. Good blood return noted. Site clean \\T\\ dry. Gauge \\T\\ kr 3 site: 20 RAC. 13:38 Patient arrived in ED. kr3 13:40 Shelton Persaud MD is Attending Physician. bs3 13:41 Triage completed. jl7 13:42 Arm band placed on right wrist. jl7 13:45 Call light in reach. Side rails up X 1. kr3 13:55 Eduarda Lord RN is Primary Nurse. kr3 15:39 CT Head Brain wo Cont In Process Unspecified. EDMS 18:47 No provider procedures requiring assistance completed. IV discontinued. kr3 Administered Medications: 14:18 Drug: Thiamine IV 100 mg Route: IV; Rate: 1 bolus; Site: right antecubital; kr3 18:50 Follow up: Response: No adverse reaction; IV Intake: 100ml kr3 14:19 Drug: Ativan IVP 2 mg Route: IVP; Site: right antecubital; kr3 18:51 Follow up: Response: No adverse reaction; RASS: Drowsy (-1) kr3 18:15 Drug: Ondansetron IVP 4 mg Route: IVP; Site: right antecubital; kr3 18:36 Drug: Librium - chlordiazePOXIDE PO 50 mg Route: PO; kr3 18:50 Follow up: Response: No adverse reaction kr3 18:50 Follow up: Response: No adverse reaction kr3 Medication: 19:01 VIS not applicable for this client. kr3 Intake: 18:50 IV: 100ml; Total: 100ml. kr3 Outcome: 18:17 Discharge ordered by . bs3 18:50 Patient left the ED. kr3 19:01 Discharged to home ambulatory. kr3 19:01 Condition: stable 19:01 Discharge instructions given to patient, Instructed on discharge instructions, follow up and referral plans. Signatures: Dispatcher [employer] Rajeev Ruiz RN RN jl7 Eduarda Lord RN RN kr3 Shelton Persaud MD MD bs3 Corrections: (The following items were deleted from the chart) 18:48 11:30 Maintain EMS IV. Dressing intact. Good blood return noted. Site clean \\T\\ dry. kr3 Gauge \\T\\ site: 20 RAC. kr3
--- NOTE | 2022-11-04 18:19 | EDPHYS ---
Physician Documentation [facility] Name: Heaven Bhatia Age: 61 yrs Sex: Female : 1960 Arrival Date: 11/04/2022 Time: 13:29 Bed 16 Private MD: ED Physician Shelton Persaud HPI: 11/04 15:02 This 61 yrs old Female presents to ER via EMS with complaints of Altered bs3 Mental Status. 15:02 Patient has a history of seizure disorder hypertension hyperlipidemia chronic alcohol bs3 abuse brought in by EMS for altered mental status reportedly the superior at her apartment building went to check on her and she was acting altered she reports drinking vodka on glass today history is limited as she is agitated and requesting to calm down. Historical: - Allergies: 13:41 Unable to obtain; jl7 - Home Meds: 13:42 Unable to obtain [Active]; jl7 - PMHx: 13:41 Seizure; Hypertensive disorder; Hyperlipidemia; chronic back pain; ETOH abuse; jl7 - PSHx: 13:41 Appendectomy; jl7 - Immunization history:: Adult Immunizations unknown. - Social history:: Smoking status: unknown. ROS: 16:45 Constitutional: Negative for fever, chills bs3 16:45 All other systems are negative. Exam: 16:45 Constitutional: This is a well developed, appears disheveled Head/Face: bs3 Normocephalic, atraumatic. Eyes: Pupils equal round and reactive to light, extra-ocular motions intact. Lids and lashes normal. ENT: mmm, no posterior phyarngeal erythema Neck: Trachea midline, no thyromegaly, no neck stiffness Chest/axilla: Normal chest wall appearance and motion. Nontender with no deformity. No lesions are appreciated. Cardiovascular: Regular rate and rhythm with a normal S1 and S2. symmetric pulses in upper extremities Respiratory: Lungs have equal breath sounds bilaterally, clear to auscultation, no respiratory distress Abdomen/GI: Soft, non-tender, no rebound or guarding Skin: Warm, dry with normal turgor. Normal color with no rashes, no lesions, and no evidence of cellulitis. MS/ Extremity: Pulses equal, no cyanosis. Neurovascular intact. Full, normal range of motion. Neuro: Patient with slurred speech she does not know where she is she has no focal deficits Psych: Awake, alert, with orientation to person, she has slurred speech and is talking nonsensically Vital Signs: 15:00 BP 141 / 82; Pulse 74; Resp 18; Pulse Ox 100% on 2 lpm NC; kr3 16:00 BP 150 / 89; Pulse 67; Resp 18; Pulse Ox 100% on 2 lpm NC; kr3 16:52 BP 168 / 88; Pulse 68; Resp 18; Pulse Ox 100% on 2 lpm NC; kr3 18:44 BP 161 / 85; Pulse 97; Resp 18; Pulse Ox 100% on R/A; kr3 MDM: 13:40 Patient medically screened. bs3 16:45 Data reviewed: vital signs, nurses notes. ED course: Patient with likely intoxication bs3 she was talking about wanting to be with Carlo however she is likely acutely intoxicated will do serial exams check labs and reassess Her EtOH level was significantly elevated will observe and reassess and have a discussion with her after sobriety. 18:15 ED course: Patient reassessed she is alert and oriented x3 her gait is significantly bs3 improved she is requesting to go home she adamantly denies wanting to hurt herself or anyone else she has no current suicidal or homicidal ideation she is clinically sober will give Librium to prevent withdrawal will discharge home. 18:17 ED course: Patient ambulated 200 feet without any unsteadiness. 3 11/04 13:42 Order name: Acetaminophen; Complete Time: 16:23 [email or web address] 11/04 13:42 Order name: Basic Metabolic Panel; Complete Time: 16:23 [email or web address] 11/04 13:42 Order name: CBC with Diff; Complete Time: 16:23 [email or web address] 11/04 13:42 Order name: ETOH Level; Complete Time: 16:23 [email or web address] 11/04 13:42 Order name: Hepatic Function; Complete Time: 16:23 3 11/04 13:42 Order name: PT-INR; Complete Time: 16:23 [email or web address] 11/04 13:42 Order name: Ptt, Activated; Complete Time: 16:23 3 11/04 13:42 Order name: Salicylate; Complete Time: 16:23 3 11/04 13:42 Order name: Urine Drug Screen; Complete Time: 16:23 [email or web address]] 11/04 14:35 Order name: CT Head Brain wo Cont; Complete Time: 16:23 bs3 11/04 13:42 Order name: EKG; Complete Time: 13:43 bs3 11/04 16:45 Order name: Diet Finger Food; Complete Time: 16:45 kr3 11/04 13:42 Order name: EKG - Nurse/Tech; Complete Time: 17:01 bs3 11/04 13:42 Order name: IV Saline Lock; Complete Time: 15:31 bs3 11/04 13:42 Order name: Labs collected and sent; Complete Time: 15:31 bs3 Administered Medications: 14:18 Drug: Thiamine IV 100 mg Route: IV; Rate: 1 bolus; Site: right antecubital; kr3 18:50 Follow up: Response: No adverse reaction; IV Intake: 100ml kr3 14:19 Drug: Ativan IVP 2 mg Route: IVP; Site: right antecubital; kr3 18:51 Follow up: Response: No adverse reaction; RASS: Drowsy (-1) kr3 18:15 Drug: Ondansetron IVP 4 mg Route: IVP; Site: right antecubital; kr3 18:36 Drug: Librium - chlordiazePOXIDE PO 50 mg Route: PO; kr3 18:50 Follow up: Response: No adverse reaction kr3 18:50 Follow up: Response: No adverse reaction kr3 Disposition Summary: 11/04/22 18:17 Discharge Ordered Location: Home bs3 Problem: new bs3 Symptoms: have improved bs3 Condition: Stable bs3 Diagnosis - Alcohol abuse with intoxication bs3 Followup: bs3 - With: Private Physician - When: 5 - 6 days - Reason: Re-evaluation by your physician Discharge Instructions: - Discharge Summary Sheet bs3 - Alcohol Intoxication, Jnel-si-Fums bs3 Forms: - Medication Reconciliation Form bs3 - Thank You Letter bs3 - Antibiotic Education bs3 - Prescription Opioid Use bs3 Signatures: Dispatcher [employer] Rajeev Ruiz RN RN [id number] Eduarda Lord RN RN kr3 Shelton Persaud MD MD bs3
[2022-11-04] MEDS ORDERED: chlordiazePOXIDE HCl 25 MG CAP ONE (18:41)
[2022-11-04 18:57] VITALS: O2SAT 100
[2022-11-04 19:01] VITALS: BP 161/85
== END 2022-11-04 18:50 | disposition home or self-care (01) ==
LOC: ER 13:29
DX: F10.129 Alcohol abuse with intoxication, unspecified (principal); I10 Essential (primary) hypertension
CPT/HCPCS: 85025; 80048; 36415; 85610; 80076; 85730; 80307; 70450; 96375; 96374; 99284; 80143; 80179; 82077; J3411; J2405

== ENCOUNTER 2022-11-06 09:24 | Emergency (ER) | payer OTHER ==
--- OUTSIDE RECORDS SUMMARY | 2022-11-06 09:29 | XMS REPORT | Continuity of Care Document ---
:1960 Author Organization [facility] t Address [address] [facility] [address] [place] [address] Care Team Providers Name Role Phone Sharpless Primary Care Physician Hero Tamez Attending Clinician Unavailable Loren Lynn Attending Clinician Unavailable Bailey Salomon Attending Clinician Unavailable CALLUM CERRATO Attending Clinician Unavailable CHRISTELLE GARDNER Admitting Clinician Unavailable Payers Payer Name Policy Type Policy Number Effective Date Expiration Date S ource MEDICARE MB [id number] 2008 [facility] NOVITAS 00:00: [facility] C1 [id number] [facility] Problems Condition Condition Condition Status Onset Resolution Last Treating Co mments Source Name Details Category Date Date Treatment Clinician Date Alcohol Alcohol Disease Recurre [facility] intox[facility] intoxicati nce 08-29 Randee kes on on 00:00: Medical 00 [place] Suicidal Suicidal Disease Active [facility] ide[facility] ideation [facility] [facility] [facility] 00:00: Medical 00 [place] Fall, Fall, Disease Active [facility] initial initial 08-29 [facility] encounter encounter 00:00: Medi yoan 00 [place] Allergic Allergic Problem Commo n rhinitis rhinitis [facility] Hypothyroi Hypothyroi Problem C ommon dism dism [facility] Constipati Constipati Problem C ommon on on [facility] Hyperlipid Hyperlipid Problem C ommon emia emia [facility] [id number] Depression Problem Com mon with Spirit anxiety [facility] Hypotensio Hypotensio Problem C ommon n n Spirit [facility] Obesity Mild Problem Common obesity [facility] Seizure Seizures Problem Common [facility] Localized Localized Problem Com mon swelling, swelling, Spir it mass and mass and - CHI lump, neck lump, neck [facility] [id number] Primary Problem Common insomnia [facility] [id number] Localized Problem Comm on osteoporos Spirit is, - [facility] unspecifie 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 [facility] Nicotine Nicotine Problem Commo n dependence dependence Sp wanda [facility] Vitamin D Vitamin D Problem Com mon deficiency deficiency [facility] Nausea and Intractabl Problem C ommon vomiting e vomiting Spir it with - [facility] [id number] Gastroesop Problem Co mmon hageal Spirit reflux - [facility] disease [facility] esophagiti Medica l s Center [id number] Urinary Problem Commo n frequency [facility] Essential Benign Problem Common hypertensi essential Spi rit on HTN [facility] [id number] Vomiting Problem Com mon [id number] without Spirit nausea, - CHI intractabi [facility] vomiting Medical not Center specified, unspecifie d vomiting type Tobacco Cigarette Problem Commo n user nicotine Spirit dependence - [facility] without complicati [facility] Epigastric Epigastric Problem C ommon pain pain [facility] Abnormal Abnormal Problem Commo n weight weight Spirit loss loss [facility] Allergies, Adverse Reactions, Alerts Allergy Allergy Status Severity Reaction(s) Onset Inactive Treating Comm ents Source Name Type Date Date Clinician NO KNOWN Allergy Active [facility] morphine morphine Active nausea Common [facility] Social History Social Habit Start Date Stop Date Quantity Comments Source History of Current Smoker Common Spi rit - Tobacco Use [facility] Alcohol intake 2016-08-28 2016-08-28 Current drinker [facility] Farida Nathan 00:00:00 00:00:00 of [facility] (finding) Sex Assigned At [birth year] LIZBETH Martinez 00:00:00 00:00:00 [facility] Center Smoking Status Start Date Stop Date Source Current Smoker 2022-01-16 00:00:00 [facility] - [facility] Medications Ordered Filled Start Stop Current Ordering Indication Dosage Frequency Signature Comments Components Source Medication Medication Date Date Medication? Clinician (SIG) Name Name Nystatin Nystatin 2020-06- No 1{appli BID Nystatin [id number] 653203 2-04 07-06 cation_ 112858 UNIT/GM UNIT/GM 00:00: 00:00 to_affe UNIT/GM 00 :00 cted_ar ea} Triamcinolo Triamcinolo 2020-0 Yes Na Salomon 1 Common ne ne 5-08 applicatio Spirit Acetonide Acetonide 00:00: n to - C HI 00 affected [facility] Triamcinolo Triamcinolo 2020-0 No 1{appli [...] on -16 Spirit 00:00: - [facility] 00 [facility] Xanax 0.5 Xanax 0.5 2018- No 1{table [...] Center Tab UNKNOWN Yes Blood [facility] med does Medical 17 not know Center name nor dose . Levothyroxi Levothyroxi Yes Na Salomon 1 tablet Common ne Sodium ne Sodium on an Spir it empty - CHI stomach in [facility] Furosemide Furosemide Yes Na Salomon 1 tablet Common [facility] Cymbalta Cymbalta Yes Na Salomon 1 capsule Common [facility] Cozaar Cozaar Yes Na Salomon 1 tablet Comm on [facility] Pravastatin Pravastatin Yes Na Salomon 1 tablet Common Sodium Sodium [facility] Omeprazole Omeprazole Yes Na Salomon 1 capsule Common [facility] ProAir HFA ProAir HFA Yes Na Salomon 1 puff as Common needed [facility] Ambien Ambien Yes Na Salomon 1 tablet Comm on at bedtime [facility] as needed [facility] Phenytoin Phenytoin Yes Na Salomon not Co mmon defined [facility] Furosemide Furosemide Yes Na Salomon 1 tablet Common [facility] Advair Advair Yes Na Salomon 1 puff Common Diskus Diskus [facility] Dilaudid Dilaudid Yes Na Salomon 1 tablet Common as needed [facility] Trazodone Trazodone Yes Na Salomon 1 tablet Common HCl HCl at bedtime [facility] as needed [facility] Potassium Potassium Yes Na Salomon not Co mmon defined [facility] Dilantin Dilantin Yes Na Salomon 5 capsule [facility] Amitiza Amitiza Yes Na Salomon 1 capsule C ommon with food Spirit and water [facility] Phenytoin Phenytoin No Phenytoin Potassium Potassium [...] FluAD 2019-02-13 Completed [facility] 11:33:00 - [facility] FluAD FluAD 2019-02-13 Completed [facility] 11:33:00 - [facility] FluAD FluAD 2019-02-13 Completed [facility] 11:33:00 - [facility] FluAD FluAD 2019-02-13 Completed [facility] 11:33:00 - [facility] FluAD FluAD 2019-02-13 Completed [facility] 11:33:00 - [facility] FluAD FluAD 2019-02-13 Completed [facility] 11:33:00 - [facility] FluAD FluAD 2019-02-13 Completed [facility] 11:33:00 - [facility] FluAD FluAD 2019-02-13 Completed [facility] 11:33:00 - [facility] FluAD FluAD 2019-02-13 Completed [facility] 11:33:00 - [facility] FluAD FluAD 2019-02-13 Completed [facility] 11:33:00 - [facility] FluAD FluAD 2019-02-13 Completed [facility] 11:33:00 - [facility] FluAD FluAD 2019-02-13 Completed [facility] 11:33:00 - [facility] FluAD FluAD 2019-02-13 Completed [facility] 00:00:00 - [facility] Vital Signs Vital Name Observation Time Observation Value Comments Source height 2022-03-17 11:40:00 62.00 [in_i] [facility] C enter weight 2022-03-17 11:40:00 127 [lb_av] [facility] C enter bmi 2022-03-17 11:40:00 23.23 kg/m2 Common S pirit - [facility] C enter Procedures This patient has no known procedures. Encounters Start End Encounter Admission Attending Care Care Encounter Source Date/Time Date/Time Type Type Clinicians Facility Department ID 2022-10-18 Outpatient Dashawn, STLMLC STLMLC [id number] Common 09:32:00 [facility] [id number] [facility] 2022-08-09 Outpatient Leah, STLMLC STLMLC [id number] Common 09:29:01 Loren [id number] [facility] 2022-01-13 Outpatient Salomon, Na STLMLC STLMLC [id number] Common 10:39:00 [id number] [facility] 2021-10-17 Outpatient Salomon, Na STLMLC STLMLC [id number] Common 15:22:39 [facility] 2021-06-29 Outpatient Salomon, Na STLMLC STLMLC [id number] Common 12:36:25 [id number] [facility] 2021-06-29 Outpatient Salomon, Na STLMLC STLMLC [id number] Common 12:35:33 [id number] [facility] 2021-06-29 Outpatient Salomon, Na STLMLC STLMLC [id number] Common 12:07:12 [id number] [facility] 2021-06-29 Outpatient Salomon, Na STLMLC STLMLC [id number] Common 12:06:16 [id number] [facility] 2021-06-29 Outpatient Salomon, Na STLMLC STLMLC [id number] Common 11:38:53 [id number] [facility] 2021-06-29 Outpatient Salomon, Na STLMLC STLMLC [id number] Common 11:36:25 [id number] [facility] 2021-06-29 Outpatient Salomon, Na STLMLC STLMLC [id number] 2 Common 11:17:48 [id number] [facility] 2021-06-29 Outpatient Salomon, Na STLMLC STLMLC [id number] 2 Common 11:01:55 [id number] [facility] 2022-07-04 2022-07-04 (TEL) STLMLC STLMLC [id number] Co mmon 00:00:00 00:00:00 [facility] 2022-06-12 2022-06-12 (TEL) STLMLC STLMLC [id number] Co mmon 00:00:00 00:00:00 [facility] 2022-03-17 2022-03-17 OFFICE STLMLC STLMLC [id number] Co mmon 00:00:00 00:00:00 VISIT [facility] PT - CHI LEVEL 4 [facility] 2021-12-28 2021-12-28 (TEL) STLMLC STLMLC [id number] Co mmon 00:00:00 00:00:00 [facility] 2021-10-17 2021-10-17 OFFICE STLMLC STLMLC [id number] Co mmon 00:00:00 00:00:00 VISIT [facility] PT - CHI LEVEL 4 [facility] 2021-10-14 2021-10-14 (TEL) STLMLC STLMLC [id number] Co mmon 00:00:00 00:00:00 [facility] 2021-10-04 2021-10-04 (TEL) STLMLC STLMLC [id number] Co mmon 00:00:00 00:00:00 [facility] 2021-09-14 2021-09-14 (TEL) STLMLC STLMLC [id number] Co mmon 00:00:00 00:00:00 [facility] 2021-09-06 2021-09-06 (TEL) STLMLC STLMLC [id number] Co mmon 00:00:00 00:00:00 [facility] 2021-08-29 2021-08-29 (TEL) STLMLC STLMLC [id number] Co mmon 00:00:00 00:00:00 [facility] 2021-05-06 2021-05-06 (TEL) STLMLC STLMLC [id number] Co mmon 00:00:00 00:00:00 [facility] 2021-04-27 2021-04-27 (TEL) STLMLC STLMLC [id number] Co mmon 00:00:00 00:00:00 [facility] 2020-10-21 2020-10-21 Outpatient STLMLC STLMLC [id number] Common 00:00:00 00:00:00 [facility] 2020-10-20 2020-10-20 Outpatient STLMLC STLMLC [id number] Common 00:00:00 00:00:00 [facility] 2020-08-06 2020-08-06 Outpatient STLMLC STLMLC [id number] Common 00:00:00 00:00:00 [facility] 2020-07-22 2020-07-22 Outpatient STLMLC STLMLC [id number] Common 00:00:00 00:00:00 [facility] 2020-03-24 2020-03-24 Outpatient STLMLC STLMLC [id number] Common 00:00:00 00:00:00 [facility] 2020-01-24 2020-01-24 [id number] Common 12:20:00 12:20:[address] [facility] 2020-01-23 2020-01-23 [facility] [id number] Common 14:00:00 14:00:[address] [facility] 2020-01-23 2020-01-23 [facility] [id number] Common 13:00:00 13:00:[address] [facility] 2020-01-02 2020-01-02 [facility] [id number] Common 15:48:00 15:48:[address] [facility] 2019-10-10 2019-10-10 [facility] [id number] Common 14:09:00 14:09:[address] [facility] 2019-06-23 2019-06-23 [facility] [id number] Common 16:20:00 16:20:[address] [facility] 2019-05-19 2019-05-19 [facility] [id number] Common 10:55:00 10:55:[address] [facility] 2019-04-01 2019-04-01 [facility] [id number] Common 16:27:00 16:27:[address] [facility] 2019-04-01 2019-04-01 [facility] [id number] Common 15:56:00 15:56:[address] [facility] 2019-04-01 2019-04-01 [facility] [id number] Common 10:41:00 10:41:[address] [facility] 2019-02-13 2019-02-13 [facility] [id number] Common 10:20:00 10:20:[address] [facility] 2019-02-10 2019-02-10 [facility] [id number] Common 16:38:00 16:38:[address] [facility] 2018-05-23 2018-05-23 [facility] [id number] Common 09:00:00 09:00:[address] [facility] 2018-04-15 2018-04-15 [facility] [id number] Common 11:00:00 11:00:[address] [facility] 2018-03-15 2018-03-15 [facility] [id number] Common 11:19:00 11:19:[address] [facility] 2018-02-21 2018-02-21 Outpatient [facility] [id number] Common 10:45:00 10:45:[address] [facility] 2017-12-04 2017-12-04 Outpatient Rachel [facility] [id number] Common 14:02:00 14:02:[address] [facility] 2017-11-21 2017-11-21 Outpatient Rachel [facility] [id number] Common 15:15:00 15:15:[address] [facility] Results Test Description Test Time Test [...] ng/mLAmphetamine/ 1000 ng/mL MethamphetamineOxycodone 300 ng/mLURINALYSIS W/ [id number] 05:47:00 Test Item Value Reference Range Interpretation [...] 516) SOURCE(BEAKER) (test code = Urine, Voided 1606) BASIC METABOLIC [id number] 02:25:00 Test Item Value Reference Range Interpretation [...] PATIEN TS. CBC W/PLT COUNT & AUTO [id number] 02:17:00 Test Item Value Reference Range Interpretation [...] K/ L 0.00-0.20 (test code = 417) [id number] 20:56:00 Test Item Value Reference Range Interpretation Comments ETHANOL (BEAKER) (test code = 400) 259 mg/dL <=10 H BASIC METABOLIC [id number] 20:55:00 Test Item Value Reference Range Interpretation [...] TO CALCULA TE ESTIMATED GFR. HEPATIC FUNCTION [id number] 20:54:00 Test Item Value Reference Range Interpretation [...] 6-55 347) CBC W/PLT COUNT & AUTO [id number] 20:36:00 Test Item Value Reference Range Interpretation [...]
[2022-11-06] MEDS ORDERED: ACETAMINOPHEN 500 MG TAB ONE (09:52)
[2022-11-06] MEDS ORDERED: THIAMINE 200 MG/2 ML INJ ONE (09:52)
[2022-11-06] MEDS ORDERED: MULTIVITAMINS 10 ML VIAL (INJ) IV ONE ×2 (09:53→10:01)
[2022-11-06] MEDS ORDERED: NA CHLORIDE 0.9% 1,000 ML ONE (09:55)
[2022-11-06] MEDS ORDERED: FOLIC ACID 5 MG/ML VIAL ONE (09:55)
[2022-11-06 09:57] LABS: Absolute Lymphocytes (CBC) 0.7 K/uL (0.7-4.9); Hematocrit 39.6 % (36.0-45.0); Lymphocytes % 12.1 % (15.3-44.8); MCV 99.2 fL (80-100); RBC Red Blood Cell Count 3.99 M/uL (3.86-4.86)
[2022-11-06 10:01] LABS: Protime INR 0.93
--- NOTE | 2022-11-06 10:08 | RAD REPORT ---
EXAM DESCRIPTION: CT - Head C Spine Mpr Wo Con - 11/06/2022 9:50 am CLINICAL HISTORY: Head and neck injury status post fall. Head and neck pain COMPARISON: June 2022 TECHNIQUE: Computed axial tomography of the head and cervical spine was obtained. Sagittal and coronal reconstruction was performed. All CT scans are performed using dose optimization technique as appropriate and may include automated exposure control or mA/KV adjustment according to patient size. FINDINGS: An intracranial bleed is not seen. The ventricles are normal in caliber. Mild to moderate low-density periventricular, deep and subcortical white matter probably ischemic enrike nges secondary to small vessel disease. An extra-axial fluid collection is not noted. Fluid within the visualized sinuses and mastoids is not seen A cervical fracture is not visualized. No dislocation is noted. IMPRESSION: No acute intracranial abnormality is seen. A cervical fracture is not visualized. If the patient continues to have symptoms to suggest intracranial /spinal cord pathology then MRI wou ld be recommended
[2022-11-06 10:16] LABS: ALT/SGPT 48 U/L (13-56); AST/SGOT 53 U/L (15-37); Albumin 3.6 g/dL (3.4-5.0); Alkaline Phosphatase 111 U/L (45-117); BUN Blood Urea Nitrogen 12 mg/dL (7-18); Bicarbonate 27 mEq/L (21-32); Bilirubin Direct 0.2 mg/dL (0-0.2); Bilirubin Indirect, Calculated 0.3 mg/dL (0.2-0.8); Bilirubin Total 0.5 mg/dL (0.2-1.0); Creatine Phosphokinase 109 U/L (26-192); Glomerular Filtration Rate 107 ml/min (=/>90); Glucose Level 75 mg/dL (74-106); Magnesium 1.8 mg/dL (1.6-2.4); Potassium 3.6 mEq/L (3.5-5.1); Sodium Level 139 mEq/L (136-145); Troponin High Sensitivity 25.4 pg/mL (<58.9)
[2022-11-06] MEDS ORDERED: KETOROLAC 30 MG/ML INJ ONE (12:04)
[2022-11-06 12:32] LABS: Specific Gravity 1.016 (1.005-1.030); Urine Bacteria None Seen /HPF (<20); Urine Bilirubin NEGATIVE (Negative); Urine Blood Negative (Negative); Urine Clarity Clear (Clear); Urine Color Light-Yellow (Yellow); Urine Glucose NEGATIVE (Negative); Urine Mucus Slight /HPF (None Seen); Urine Protein TRACE (Negative); Urine RBC <5 /HPF (None Seen); Urine Urobilinogen Normal (Normal); Urine pH 5.5 (5.0-7.0)
--- NOTE | 2022-11-06 12:57 | ER ---
Nurse's Notes [facility] Name: Heaven Bhatia Age: 61 yrs Sex: Female : 1960 Arrival Date: 11/06/2022 Time: 09:24 Bed 19 Private MD: Diagnosis: Weakness;Chemical burn of eye Presentation: 11/06 10:07 Chief complaint: Patient states: Patient complains of head and eye pain after getting sg5 bleach in eyes and then falling hitting head during fall. Neighbor was able to assist patient up and called EMS. Coronavirus screen: At this time, unable to obtain information related to travel outside the [place] Ebola Screen: No symptoms or risks identified at this time. Initial Sepsis Screen: Does the patient meet any 2 criteria? No. Patient's initial sepsis screen is negative. Does the patient have a suspected source of infection? No. Patient's initial sepsis screen is negative. Risk Assessment: Do you want to hurt yourself or someone else? Patient reports no desire to harm self or others. Onset of symptoms was November 06, 2022. 10:07 Method Of Arrival: EMS: [facility] sg5 10:07 Acuity: MARILYNN 3 sg5 Triage Assessment: 10:14 General: Appears distressed, uncomfortable, Behavior is cooperative, appropriate for sg5 age, agitated. Pain: Complains of pain in head, face, eyes. EENT: Eyes swollen, red. Reports blurred vision in iris of right eye and iris of left eye pain in face. Neuro: Level of Consciousness is awake, alert, obeys commands, Oriented to person, place, time, situation, Appropriate for age. Cardiovascular: Capillary refill < 3 seconds Patient's skin is warm and dry. Respiratory: Airway is patent Trachea midline. GI: Abdomen is round non-distended. Derm: Skin is bruising to bilateral eyes and on bilateral arms. Historical: - Allergies: 13:28 Unable to obtain; sg5 - PMHx: 10:14 chronic back pain; etoh abuse; Hyperlipidemia; Hypertensive disorder; Seizure; sg5 - PSHx: 10:14 Appendectomy; sg5 - Immunization history:: Adult Immunizations up to date. - Social history:: Smoking status: Patient reports the use of cigarette tobacco products, smokes one-half pack cigarettes per day, Patient uses alcohol, on a daily basis. Screenin:27 [facility] ED Fall Risk Assessment (Adult) History of falling in the last 3 months, sg5 including since admission Yes- single mechanical fall (1 pt). Abuse screen: Denies threats or abuse. Nutritional screening: No deficits noted. Tuberculosis screening: No symptoms or risk factors identified. Assessment: 11:30 General: Appears uncomfortable. Pain: Complains of pain in iris of left eye and iris of sg5 right eye face. Neuro: Level of Consciousness is awake, alert, obeys commands, Oriented to person, place, time, situation, Appropriate for age. Cardiovascular: Capillary refill < 3 seconds Patient's skin is warm and dry. Respiratory: Airway is patent Trachea midline Respiratory effort is even, unlabored, Respiratory pattern is regular, symmetrical. GI: Abdomen is round non-distended. Derm: generalized brusing bilateral arms and anterior face. 13:25 Reassessment: bilateral eyes flushed. sg5 Vital Signs: 10:07 BP 180 / 106; Pulse 86; Resp 18; Temp 97.9; Pulse Ox 100% on R/A; Weight 67.59 kg; sg5 Height 5 ft. 2 in. ; Pain 10/10; 10:30 BP 186 / 92; Pulse 83; Resp 16; Pulse Ox 96% on R/A; Pain 7/10; sg5 11:00 BP 194 / 107; Pulse 85; Resp 16; Pulse Ox 100% on R/A; Pain 8/10; sg5 11:30 BP 203 / 109; Pulse 81; Resp 16; Pulse Ox 96% on R/A; Pain 7/10; sg5 12:00 BP 165 / 72; Pulse 85; Resp 16; Pulse Ox 96% on R/A; Pain 4/10; sg5 13:00 BP 168 / 98; Pulse 80; Resp 16; Pulse Ox 96% on R/A; Pain 3/10; sg5 10:07 Body Mass Index 27.25 (67.59 kg, 157.48 cm) sg5 10:07 Pain Scale: Adult sg5 10:30 Pain Scale: Adult sg5 11:00 Pain Scale: Adult sg5 11:30 Pain Scale: Adult sg5 12:00 Pain Scale: Adult sg5 13:00 Pain Scale: Adult sg5 ED Course: :28 Patient arrived in ED. em1 09:28 Jesus Hernández MD is Attending Physician. rt 09:39 Annika Phillip, RN is Primary Nurse. sg5 09:43 Initial lab(s) drawn, by me, sent to lab. Inserted saline lock: 20 gauge in right em1 antecubital area, using aseptic technique. Blood collected. 09:51 CT Head C Spine In Process Unspecified. EDMS 10:14 Triage completed. sg5 10:14 EKG done, by ED staff, reviewed by Jesus Hernández MD. em1 10:14 Arm band placed on right wrist. sg5 13:25 No provider procedures requiring assistance completed. IV discontinued. sg5 13:27 Patient has correct armband on for positive identification. Placed in gown. Bed in low sg5 position. Call light in reach. Side rails up X2. Adult w/ patient. Valuables Left with patient. Administered Medications: 09:50 Drug: Acetaminophen PO 1000 mg Route: PO; sg5 09:50 Drug: Banana Bag - (NS 0.9% IV 1000 ml, foLIC Acid IVPB 1 mg, Thiamine IV 100 mg, sg5 Multivitamin IV 1 amp) Route: IV; Rate: calculated rate; Site: right antecubital; 11:55 Drug: Ketorolac IVP 30 mg Route: IVP; Site: right antecubital; sg5 13:24 Drug: amLODIPine PO 10 mg Route: PO; sg5 Medication: 13:28 VIS not applicable for this client. sg5 Outcome: 12:56 Discharge ordered by . rt 13:27 Discharged to home ambulatory, with friend. sg5 13:27 Condition: stable 13:27 Discharge instructions given to patient, Instructed on discharge instructions, follow up and referral plans. 13:28 Patient left the ED. sg5 Signatures: Dispatcher [employer] Mj Hernandez em1 Jesus Hernández MD MD rt Annika Phillip, RN RN sg5
--- NOTE | 2022-11-06 12:57 | EDPHYS ---
Physician Documentation [facility] Name: Heaven Bhatia Age: 61 yrs Sex: Female : 1960 Arrival Date: 11/06/2022 Time: 09:24 Bed 19 Private MD: ED Physician Jesus Hernández HPI: 11/06 09:46 This 61 yrs old Female presents to ER via Unassigned with complaints of Altered mental rt status. 09:46 Patient presents to the ED with an altered mental status. Patient was seen in the ED rt for alcohol abuse 2 days ago. Patient states that she has been on the floor in her apartment for several days. She states that she has pain all over every part of her body. The patient was reportedly found by a friend, EMS was called. No further history could be obtained, history limited due to altered mental status.. Historical: - Allergies: 13:28 Unable to obtain; sg5 - PMHx: 10:14 chronic back pain; etoh abuse; Hyperlipidemia; Hypertensive disorder; Seizure; sg5 - PSHx: 10:14 Appendectomy; sg5 - Immunization history:: Adult Immunizations up to date. - Social history:: Smoking status: Patient reports the use of cigarette tobacco products, smokes one-half pack cigarettes per day, Patient uses alcohol, on a daily basis. ROS: 09:46 Unable to obtain ROS due to altered mental status. rt Exam: 09:46 Head/Face: Normocephalic, atraumatic. Chest/axilla: Normal chest wall appearance and rt motion. Nontender with no deformity. No lesions are appreciated. Cardiovascular: Regular rate and rhythm with a normal S1 and S2. No gallops, murmurs, or rubs. Normal PMI, no JVD. No pulse deficits. Respiratory: Lungs have equal breath sounds bilaterally, clear to auscultation and percussion. No rales, rhonchi or wheezes noted. No increased work of breathing, no retractions or nasal flaring. Abdomen/GI: Soft, non-tender, with normal bowel sounds. No distension or tympany. No guarding or rebound. No evidence of tenderness throughout. MS/ Extremity: Pulses equal, no cyanosis. Neurovascular intact. Full, normal range of motion. 09:46 Constitutional: The patient appears Confused, slight agitation 09:46 Skin: Bruising noted diffusely on skin. 09:46 Neuro: Slurring of the speech, moves all 4 extremities equally. 10:59 ECG was reviewed by the Attending Physician. rt Vital Signs: 10:07 BP 180 / 106; Pulse 86; Resp 18; Temp 97.9; Pulse Ox 100% on R/A; Weight 67.59 kg; sg5 Height 5 ft. 2 in. ; Pain 10/10; 10:30 BP 186 / 92; Pulse 83; Resp 16; Pulse Ox 96% on R/A; Pain 7/10; sg5 11:00 BP 194 / 107; Pulse 85; Resp 16; Pulse Ox 100% on R/A; Pain 8/10; sg5 11:30 BP 203 / 109; Pulse 81; Resp 16; Pulse Ox 96% on R/A; Pain 7/10; sg5 12:00 BP 165 / 72; Pulse 85; Resp 16; Pulse Ox 96% on R/A; Pain 4/10; sg5 13:00 BP 168 / 98; Pulse 80; Resp 16; Pulse Ox 96% on R/A; Pain 3/10; sg5 10:07 Body Mass Index 27.25 (67.59 kg, 157.48 cm) sg5 10:07 Pain Scale: Adult sg5 10:30 Pain Scale: Adult sg5 11:00 Pain Scale: Adult sg5 11:30 Pain Scale: Adult sg5 12:00 Pain Scale: Adult sg5 13:00 Pain Scale: Adult sg5 MDM: 09:28 Patient medically screened. rt 13:00 Differential Diagnosis Alcohol intoxication, sepsis, electrolyte disturbance. Data rt reviewed: vital signs, nurses notes, lab test result(s), EKG, radiologic studies. Consideration of Admission/Observation Escalation of care including admission/observation considered. Patient's mentation significantly improved. Patient states that she is strongly desirous of discharge. Patient is ambulatory in the ED. Of note, patient states that she splashed a small amount of bleach into her eye, it was flushed copiously by RN. There is mild conjunctival injection. We will prescribe erythromycin ointment. Patient was instructed to follow-up with ophthalmology. This exposure happened hours ago, no immediate indications further intervention other than irrigation at this time.. I considered the following discharge prescriptions or medication management in the emergency department Medications were administered in the Emergency Department. See MAR. Independent interpretation of the following test(s) in the Emergency Department CT Scan: My interpretation is No hemorrhage seen on my interpretation of the CT scan images. Counseling: I had a detailed discussion with the patient and/or guardian regarding: the historical points, exam findings, and any diagnostic results supporting the discharge/admit diagnosis, the presence of at least one elevated blood pressure reading (>120/80) during this emergency department visit, lab results, radiology results, the need for outpatient follow up, to return to the emergency department if symptoms worsen or persist or if there are any questions or concerns that arise at home. 11/06 09:30 Order name: Acetaminophen; Complete Time: 10:23 rt 11/06 09:30 Order name: Basic Metabolic Panel; Complete Time: 10:23 rt 11/06 09:30 Order name: CBC with Diff; Complete Time: 10: rt 11/06 09:30 Order name: ETOH Level; Complete Time: 10:23 rt 11/06 09:30 Order name: Hepatic Function; Complete Time: 10:23 rt 11/06 09:30 Order name: PT-INR; Complete Time: 10: rt 11/06 09:30 Order name: Ptt, Activated; Complete Time: 10:09 rt 11/06 09:30 Order name: Salicylate; Complete Time: 10:48 rt 11/06 09:30 Order name: Urinalysis w/ reflexes; Complete Time: 12:45 rt 11/06 09:30 Order name: Urine Drug Screen rt 11/06 09:30 Order name: Troponin High Sensitivity; Complete Time: 10:23 rt 11/06 09:30 Order name: CPK; Complete Time: 10:23 rt 11/06 09:30 Order name: Magnesium; Complete Time: 10:23 rt 11/06 09:30 Order name: CT Head C Spine; Complete Time: 10:09 rt 11/06 09:30 Order name: EKG; Complete Time: 09:31 rt 11/06 09:30 Order name: EKG - Nurse/Tech; Complete Time: 10:14 rt 11/06 09:30 Order name: IV Saline Lock; Complete Time: 09:43 rt 11/06 09:30 Order name: Labs collected and sent; Complete Time: 09:43 rt 11/06 09:30 Order name: Suicide Screening (Jessamine) rt EC:59 Rate is 79 beats/min. Rhythm is regular, Normal Sinus Rhythm with No ectopy. QRS Bradford rt is Normal. WV interval is normal. QRS interval is normal. QT interval is normal. No Q waves. Clinical impression: NSR w/ Non-specific ST/T Changes. Administered Medications: 09:50 Drug: Acetaminophen PO 1000 mg Route: PO; sg5 09:50 Drug: Banana Bag - (NS 0.9% IV 1000 ml, foLIC Acid IVPB 1 mg, Thiamine IV 100 mg, sg5 Multivitamin IV 1 amp) Route: IV; Rate: calculated rate; Site: right antecubital; 11:55 Drug: Ketorolac IVP 30 mg Route: IVP; Site: right antecubital; sg5 13:24 Drug: amLODIPine PO 10 mg Route: PO; sg5 Disposition Summary: 11/06/22 12:56 Discharge Ordered Location: Home rt Problem: an ongoing problem rt Symptoms: have improved rt Condition: Stable rt Diagnosis - Weakness rt - Chemical burn of eye rt Followup: rt - With: Private Physician - When: 2 - 3 days - Reason: Discharge Instructions: - Discharge Summary Sheet rt - Weakness rt - Chemical Burn of the Eyes, Adult rt Forms: - Medication Reconciliation Form rt - Thank You Letter rt - Antibiotic Education rt - Prescription Opioid Use rt Prescriptions: - Erythromycin 5 mg/gram (0.5 %) Ophthalmic Ointment - apply 1 centimeter by OPHTHALMIC route 2-3 times daily for 7 days; 1 rt application; Refills: 0, Product Selection Permitted Signatures: Dispatcher [employer] Jesus Sims MD MD rt Annika Phillip, RN RN sg5
[2022-11-06 13:26] LABS: Barbiturates NEGATIVE (NEGATIVE); Benzodiazepines POSITIVE (NEGATIVE); Cocaine NEGATIVE (NEGATIVE); METHAMPHETAM NEGATIVE (NEGATIVE); Methadone NEGATIVE (NEGATIVE); Opiates NEGATIVE (NEGATIVE); Phencyclidine NEGATIVE (NEGATIVE); THC Cannibis NEGATIVE (NEGATIVE)
[2022-11-06] MEDS ORDERED: AMLODIPINE 10 MG TAB ONE (13:26)
[2022-11-06 14:09] VITALS: TEMP 97.9
[2022-11-06 14:13] VITALS: O2SAT 96
[2022-11-06 14:15] VITALS: BP 168/98
--- NOTE | 2022-11-08 07:23 | EKG ---
Test Date: 2022-11-06 Test Time: 10:12:08 Creative Writing English Professor: REGAN MEASUREMENT RESULTS: Intervals: Rate: 79 SD: 156 QRSD: 82 QT: 394 QTc: 451 [place]: P: 86 SD: 156 QRS: 59 T: 80 INTERPRETIVE STATEMENTS: Normal sinus rhythm Septal infarct, age undetermined Abnormal ECG Compared to ECG 10/07/2022 11:21:03 Myocardial infarct finding now present Sinus tachycardia no longer present Left-axis deviation no longer present Left bundle-branch block no longer present Electronically Signed On 11-08-22 07:15:24 CDT by Wesly Duvall
== END 2022-11-06 13:28 | disposition home or self-care (01) ==
LOC: ER 09:24
DX: R53.1 Weakness (principal); T26.92XA Corrosion of left eye and adnexa, part unspecified, initial encounter; T26.91XA Corrosion of right eye and adnexa, part unspecified, initial encounter; I10 Essential (primary) hypertension; F17.210 Nicotine dependence, cigarettes, uncomplicated
CPT/HCPCS: 93005; 85025; 81001; 80048; 36415; 83735; 82550; 85610; 80076; 85730; 84484; 80307; 70450; 72125; 96375; 96374; 99285; 80143; 80179; 82077; J3411; J7030

== ENCOUNTER 2022-11-08 16:02 | Emergency (ER) | payer OTHER ==
--- OUTSIDE RECORDS SUMMARY | 2022-11-08 16:09 | XMS REPORT | Continuity of Care Document ---
:1960 Author Organization [facility] t Address [address] [place] [address] Care Team Providers Name Role Phone Sharpless Primary Care Physician Hero Tamez Attending Clinician Unavailable Loren Lynn Attending Clinician Unavailable Bailey Salomon Attending Clinician Unavailable CALLUM CERRATO Attending Clinician Unavailable CHRISTELLE GARDNER Admitting Clinician Unavailable Payers Payer Name Policy Type Policy Number Effective Date Expiration Date S ource MEDICARE MB [id number] 2008 [facility] NOVITAS 00:00: [facility] C1 [id number] [facility] Problems Condition Condition Condition Status Onset Resolution Last Treating Co mments Source Name Details Category Date Date Treatment Clinician Date Alcohol Alcohol Disease Recurre [facility] intox[facility] intoxicati nce 08-29 Randee kes on on 00:00: Medical 00 [place] Suicidal Suicidal Disease Active [facility] 00[facility]: [facility] 00 [place] Fall, Fall, Disease Active [facility] initial initial 08-29 [facility] encounter encounter 00:00: Medi yoan 00 [place] Allergic Allergic Problem Commo n rhinitis rhinitis [facility] Hypothyroi Hypothyroi Problem C ommon dism dism [facility] Constipati Constipati Problem C ommon on on [facility] Hyperlipid Hyperlipid Problem C ommon emia emia [facility] [id number] Depression Problem Com mon with Spirit anxiety [facility] Hypotensio Hypotensio Problem C ommon n n Spirit [facility] Obesity Mild Problem Common obesity [facility] Seizure Seizures Problem Common [facility] Localized Localized Problem Com mon swelling, swelling, Spir it mass and mass and - CHI lump, neck lump, neck [facility] [id number] Primary Problem Common insomnia [facility] [id number] Localized Problem Comm on osteoporos Spirit is, - CHI unspecifie 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 [facility] Nicotine Nicotine Problem Commo n dependence dependence Sp wanda [facility] Vitamin D Vitamin D Problem Com [facility] deficiency [facility] Nausea and Intractabl Problem C ommon vomiting e vomiting Spir it with - [facility] type [facility] [id number] Gastroesop Problem Co mmon hageal Spirit reflux - [facility] disease [facility] esophagiti Medica l s Center [id number] Urinary Problem Commo n frequency [facility] Essential Benign Problem Common hypertensi essential Spi rit on HTN [facility] [id number] Vomiting Problem [place] [address] without Spirit nausea, - CHI intractabi [facility] vomiting Medical not Center specified, unspecifie d vomiting type Tobacco Cigarette Problem Commo n user nicotine Spirit dependence - [facility] without complicati [facility] Epigastric Epigastric Problem C ommon pain pain [facility] Abnormal Abnormal Problem Commo n weight weight Spirit loss loss [facility] Allergies, Adverse Reactions, Alerts Allergy Allergy Status Severity Reaction(s) Onset Inactive Treating Comm ents Source Name Type Date Date Clinician NO KNOWN Allergy Active [facility] morphine morphine Active nausea Common [facility] Social History Social Habit Start Date Stop Date Quantity Comments Source History of Current Smoker [facility]pi rit - Tobacco Use [facility] Alcohol intake 2016-08-28 2016-08-28 Current drinker [facility] Farida Nathan 00:00:00 00:00:00 of [facility] (finding) Sex Assigned At [birth year] LIZBETH Martinez 00:00:00 00:00:00 [facility] Smoking Status Start Date Stop Date Source Current Smoker 2022-01-16 00:00:00 [facility] Medications Ordered Filled Start Stop Current Ordering Indication Dosage Frequency Signature Comments Components Source Medication Medication Date Date Medication? Clinician (SIG) Name Name Nystatin Nystatin 2020-06- No 1{appli BID Nystatin 106363 166348 2-04 07-06 cation_ 130268 UNIT/GM UNIT/GM 00:00: 00:00 to_affe UNIT/GM 00 :00 cted_ar ea} Triamcinolo Triamcinolo 2020-0 Yes Na Salomon 1 Common ne ne 5-08 applicatio Spirit Acetonide Acetonide 00:00: n to - C HI 00 affected [facility] Triamcinolo Triamcinolo 2020-0 No 1{appli BID [...] on -16 Spirit 00:00: - [facility] 00 [facility] Xanax 0.5 Xanax 0.5 2018- No [...] know Center name nor dose . traZODone 2017 Yes 50mg QD Take [address] (DESYREL) 3-28 by mouth [facility] 50 MG 14:35: nightly Medical tablet 17 Does not Center know dose . cholecalcif 2017 Yes 5000U Q7D Take 5,[address] [...] 5,[address] michelle, 3-28 Units by [facility] vitamin D3, 14:35: mouth once Medical 5,000 unit 17 a week. Center Tab UNKNOWN Yes Blood [facility] 3- [facility] 14:35: med does Medical 17 not know Center name nor dose . Levothyroxi Levothyroxi Yes Na Salomon 1 tablet Common ne Sodium ne Sodium on an Spir it empty - CHI stomach in [facility] Furosemide Furosemide Yes Na Salomon 1 tablet Common [facility] Cymbalta [facility]omon 1 capsule Common [facility] Cozaar Cozaar Yes Na Salomon 1 tablet Comm on [facility] Pravastatin Pravastatin Yes Na Salomon 1 tablet Common Sodium Sodium [facility] Omeprazole Omeprazole Yes Na Salomon 1 capsule Common [facility] ProAir HFA ProAir HFA Yes Na Salomon 1 puff as Common needed [facility] Ambien Ambien Yes Na Salomon 1 tablet Comm on at bedtime [facility] as needed [facility] Phenytoin Phenytoin Yes Na Salomon not Co mmon defined [facility] Furosemide Furosemide Yes Na Salomon 1 tablet Common [facility] Advair Advair Yes Na Salomon 1 puff Common Diskus Diskus [facility] Dilaudid Dilaudid Yes Na Salomon 1 tablet Common as needed [facility] Trazodone Trazodone Yes Na Salomon 1 tablet Common HCl HCl at bedtime Spirit as needed - [facility] Potassium Potassium Yes Na Salomon not Co mmon defined Spirit CHI [facility] Dilantin Dilantin Yes Na Salomon 5 capsule [facility] Amitiza Amitiza Yes Na Salomon 1 capsule C ommon with food Spirit and water - CHI [facility] Phenytoin Phenytoin No Phenytoin Potassium Potassium [...] FluAD 2019-02-13 Completed [facility] 11:33:00 - [facility] FluAD FluAD 2019-02-13 Completed [facility] 11:33:00 - [facility] FluAD FluAD 2019-02-13 Completed [facility] 11:33:00 - [facility] FluAD FluAD 2019-02-13 Completed [facility] 11:33:00 - [facility] FluAD FluAD 2019-02-13 Completed [facility] 11:33:00 - [facility] FluAD FluAD 2019-02-13 Completed [facility] 11:33:00 - [facility] FluAD FluAD 2019-02-13 Completed [facility] 11:33:00 - [facility] FluAD FluAD 2019-02-13 Completed [facility] 11:33:00 - [facility] FluAD FluAD 2019-02-13 Completed [facility] 11:33:00 - [facility] FluAD FluAD 2019-02-13 Completed [facility] 11:33:00 - [facility] FluAD FluAD 2019-02-13 Completed [facility] 11:33:00 - [facility] FluAD FluAD 2019-02-13 Completed [facility] 11:33:00 - [facility] FluAD FluAD 2019-02-13 Completed [facility] 00:00:00 - [facility] Vital Signs Vital Name Observation Time Observation Value Comments Source height 2022-03-17 11:40:00 62.00 [in_i] Common S [facility] enter weight 2022-03-17 11:40:00 127 [lb_av] [facility] 2022-03-17 11:40:00 23.23 kg/m2 [facility] enter Procedures This patient has no known procedures. Encounters Start End Encounter Admission Attending Care Care Encounter Source Date/Time Date/Time Type Type Clinicians Facility Department ID 2022-10-18 Outpatient Tamez, STLMLC STLMLC [id number] Common 09:32:00 [facility] [address] [facility] 2022-08-09 Outpatient Leah, STLMLC STLMLC [id number] Common 09:29:01 Loren [id number] [facility] 2022-01-13 Outpatient Salomon, Na STLMLC STLMLC [id number] Common 10:39:00 [facility] 2021-10-17 Outpatient Salomon, Na STLMLC STLMLC [id number] 2 Common 15:22:39 [id number] [facility] 2021-06-29 Outpatient Salomon, Na STLMLC STLMLC [id number] Common 12:36:25 [id number] [facility] 2021-06-29 Outpatient Salomon, Na STLMLC STLMLC [id number] 2 Common 12:35:33 [id number] [facility] 2021-06-29 Outpatient Salomon, Na STLMLC STLMLC [id number] Common 12:07:12 [id number] [facility] 2021-06-29 Outpatient Salomon, Na STLMLC STLMLC [id number] 2 Common 12:06:16 [id number] [facility] 2021-06-29 Outpatient Salomon, Na STLMLC STLMLC [id number] 2 Common 11:38:53 [id number] [facility] 2021-06-29 Outpatient Salomon, Na STLMLC STLMLC [id number] 2 Common 11:36:25 [id number] [facility] 2021-06-29 Outpatient Salomon, Na STLMLC STLMLC [id number] 2 Common 11:17:48 [id number] [facility] 2021-06-29 Outpatient Salomon, Na STLMLC STLMLC [id number] 2 Common 11:01:55 [id number] [facility] 2022-07-04 2022-07-04 (TEL) STLMLC STLMLC [id number] Co mmon 00:00:00 00:00:00 [facility] 2022-06-12 2022-06-12 (TEL) STLMLC STLMLC [id number] Co mmon 00:00:00 00:00:00 [facility] 2022-03-17 2022-03-17 OFFICE STLMLC STLMLC [id number] Co mmon 00:00:00 00:00:00 [facility] PT - CHI LEVEL 4 [facility] 2021-12-28 2021-12-28 (TEL) STLMLC STLMLC [id number] Co mmon 00:00:00 00:00:00 [facility] 2021-10-17 2021-10-17 OFFICE STLMLC STLMLC [id number] Co mmon 00:00:00 00:00:00 [facility] PT - CHI LEVEL 4 [facility] 2021-10-14 2021-10-14 (TEL) STLMLC STLMLC [id number] Co mmon 00:00:00 00:00:00 [facility] 2021-10-04 2021-10-04 (TEL) STLMLC STLMLC [id number] Co mmon 00:00:00 00:00:00 [facility] 2021-09-14 2021-09-14 (TEL) STLMLC STLMLC [id number] Co mmon 00:00:00 00:00:00 [facility] 2021-09-06 2021-09-06 (TEL) STLMLC STLMLC [id number] Co mmon 00:00:00 00:00:00 [facility] 2021-08-29 2021-08-29 (TEL) STLMLC STLMLC [id number] Co mmon 00:00:00 00:00:00 [facility] 2021-05-06 2021-05-06 (TEL) STLMLC STLMLC [id number] Co mmon 00:00:00 00:00:00 [facility] 2021-04-27 2021-04-27 (TEL) STLMLC STLMLC [id number] Co mmon 00:00:00 00:00:00 [facility] 2020-10-21 2020-10-21 Outpatient STLMLC STLMLC [id number] Common 00:00:00 00:00:00 [facility] 2020-10-20 2020-10-20 Outpatient STLMLC STLMLC [id number] Common 00:00:00 00:00:00 [facility] 2020-08-06 2020-08-06 Outpatient STLMLC STLMLC [id number] Common 00:00:00 00:00:00 [facility] 2020-07-22 2020-07-22 Outpatient STLMLC STLMLC [id number] Common 00:00:00 00:00:00 [facility] 2020-03-24 2020-03-24 Outpatient STLMLC STLMLC [id number] Common 00:00:00 00:00:00 [facility] 2020-01-24 2020-01-24 [id number] Common 12:20:00 12:20:[address] [facility] 2020-01-23 2020-01-23 [id number] Common 14:00:00 14:00:00 t Gift [address] [facility] 2020-01-23 2020-01-23 [facility] [id number] Common 13:00:00 13:00:[address] [facility] 2020-01-02 2020-01-02 [facility] [id number] Common 15:48:00 15:48:[address] [facility] 2019-10-10 2019-10-10 [facility] [id number] Common 14:09:00 14:09:[address] [facility] 2019-06-23 2019-06-23 [facility] [id number] Common 16:20:00 16:20:[address] [facility] 2019-05-19 2019-05-19 [facility] [id number] Common 10:55:00 10:55:[address] [facility] 2019-04-01 2019-04-01 [facility] [id number] Common 16:27:00 16:27:[address] [facility] 2019-04-01 2019-04-01 [facility] [id number] Common 15:56:00 15:56:[address] [facility] 2019-04-01 2019-04-01 [facility] [id number] Common 10:41:00 10:41:[address] [facility] 2019-02-13 2019-02-13 [facility] [id number] Common 10:20:00 10:20:[address] [facility] 2019-02-10 2019-02-10 [facility] [id number] Common 16:38:00 16:38:[address] [facility] 2018-05-23 2018-05-23 [facility] [id number] Common 09:00:00 09:00:[address] [facility] 2018-04-15 2018-04-15 [facility] [id number] Common 11:00:00 11:00:[address] [facility] 2018-03-15 2018-03-15 [facility] [id number] Common 11:19:00 11:19:[address] [facility] 2018-02-21 2018-02-21 [facility] [id number] Common 10:45:00 10:45:[address] [facility] 2017-12-04 2017-12-04 [facility] [id number] Common 14:02:00 14:02:[address] [facility] 2017-11-21 2017-11-21 [facility] [id number] Common 15:15:00 15:15:[address] [facility] Results Test Description Test Time Test [...] ng/mLAmphetamine/ 1000 ng/mL MethamphetamineOxycodone 300 ng/mLURINALYSIS W/ [id number] 05:47:00 Test Item Value Reference Range Interpretation [...] 516) SOURCE(BEAKER) (test code = Urine, Voided 6332) BASIC METABOLIC [id number] 02:25:00 Test Item Value Reference Range Interpretation [...] PATIEN TS. CBC W/PLT COUNT & AUTO [id number] 02:17:00 Test Item Value Reference Range Interpretation [...] K/ L 0.00-0.20 (test code = 417) [id number] 20:56:00 Test Item Value Reference Range Interpretation Comments ETHANOL (BEAKER) (test code = 400) 259 mg/dL <=10 H BASIC METABOLIC [id number] 20:55:00 Test Item Value Reference Range Interpretation [...] TO CALCULA TE ESTIMATED GFR. HEPATIC FUNCTION [id number] 20:54:00 Test Item Value Reference Range Interpretation [...] 6-55 347) CBC W/PLT COUNT & AUTO [id number] 20:36:00 Test Item Value Reference Range Interpretation [...]
[2022-11-08 16:40] LABS: Hematocrit 32.9 % (36.0-45.0); Lymphocytes % 15.9 % (15.3-44.8); MCV 99.6 fL (80-100); MPV 6.9 fL (7.6-11.3)
[2022-11-08 16:41] LABS: Protime INR 1.1
[2022-11-08] MEDS ORDERED: KETOROLAC 30 MG/ML INJ ONE (16:48)
--- NOTE | 2022-11-08 17:03 | RAD REPORT ---
EXAM DESCRIPTION: [facility] Single View11/08/2022 4:44 pm CLINICAL HISTORY: fall COMPARISON: Chest Single View dated 10/07/2022; Chest Single View dated 05/29/2022; Chest Single View dated 09/11/2021; Abdomen 1 View (KUB) dated 08/03/2019 TECHNIQUE: Portable AP view of the chest. FINDINGS: Mildly progressive patchy bibasilar airspace opacities. Probable trace effusions. No pneu mothorax. The cardiomediastinal contours are unremarkable. IMPRESSION: Progressive patchy bibasilar airspace opacities and probable trace effusions. Findings m ay relate to atelectasis, pneumonia, or early edema.
[2022-11-08 17:13] LABS: ALT/SGPT 50 U/L (13-56); AST/SGOT 51 U/L (15-37); Alkaline Phosphatase 92 U/L (45-117); BUN Blood Urea Nitrogen 9 mg/dL (7-18); Bicarbonate 27 mEq/L (21-32); Bilirubin Direct 0.2 mg/dL (0-0.2); Bilirubin Indirect, Calculated 0.2 mg/dL (0.2-0.8); Bilirubin Total 0.4 mg/dL (0.2-1.0); Creatine Phosphokinase 67 U/L (26-192); Glomerular Filtration Rate 106 ml/min (=/>90); Glucose Level 72 mg/dL (74-106); Magnesium 1.9 mg/dL (1.6-2.4); NT PRO-BNP 449 pg/mL (<125); Potassium 3.2 mEq/L (3.5-5.1); Protein, Total 6.4 g/dL (6.4-8.2); Sodium Level 138 mEq/L (136-145); Troponin High Sensitivity 31.4 pg/mL (<58.9)
[2022-11-08 17:17] LABS: Barbiturates NEGATIVE (NEGATIVE); Benzodiazepines POSITIVE (NEGATIVE); Cocaine NEGATIVE (NEGATIVE); METHAMPHETAM NEGATIVE (NEGATIVE); Methadone NEGATIVE (NEGATIVE); Opiates NEGATIVE (NEGATIVE); Phencyclidine NEGATIVE (NEGATIVE); THC Cannibis NEGATIVE (NEGATIVE)
--- NOTE | 2022-11-08 18:17 | RAD REPORT ---
EXAM DESCRIPTION: CT - Head C Spine Efra Silver - 11/08/2022 5:43 pm CLINICAL HISTORY: fall COMPARISON: No comparisons TECHNIQUE: Head and cervical spine CT images were obtained without IV contrast. Chest, abdomen, and pelvis CT images were obtained following intravenous administration of 100mL Isovue-300. Multiplanar reformats were generated and reviewed. All CT scans are performed using dose optimization technique as appropriate and may include automated exposure control or mA/KV adjustment according to patient size. FINDINGS: CT HEAD: No intracranial hemorrhage, mass effect, or edema. No evidence of acute territorial infarct. No midli ne shift or abnormal fluid collection. The ventricles are normal in caliber and configuration for age . Basal cisterns are patent. Mastoid aircells and paranasal sinuses are clear. No acute skull fractur e. CT CERVICAL SPINE: Mild motion artifact limits evaluation. Straightening of normal cervical lordosis which could be posi tional or secondary to muscle spasm. No evidence of acute fracture or subluxation. Vertebral body hei ghts are well maintained. Facet joints are normal in alignment. No hyperattenuating canal hematoma. P revertebral and paraspinous soft tissues are unremarkable. CT CHEST: No pneumothorax, pulmonary contusion or pleural fluid collection. Bibasilar atelectatic changes are p resent. No mediastinal hematoma and the aorta and pulmonary arteries are unremarkable. No chest will mass or abnormal axillary finding. No displaced rib fracture or other significant bony finding. CT ABDOMEN/ PELVIS: No evidence of traumatic injury to solid abdominal viscera. Gallbladder and biliary tree are unremark able. No bowel injury, however there is long segment apparent wall thickening of the ascending and pr oximal transverse colon, which could be related to nondistention of the bowel. Mild burden of colonic diverticulosis. No free air, free fluid or abnormal fat stranding. No urinary bladder abnormality. I ncidentally noted small cortical left renal cysts. Abandoned pain pump catheter is noted, its proxima l aspect present along the right flank. Healing bilateral fifth and left fourth rib fractures. Subtle compression deformities along L1 super ior endplate and T10 inferior endplate, likely chronic. IMPRESSION: Healing bilateral fifth and left fourth rib fractures. No other acute traumatic findings. Other incidental findings as above, including apparent wall thickening along the ascending and proxim al transverse colon, which could relate to nondistention or mild nonspecific colitis.
[2022-11-08] MEDS ORDERED: POTASSIUM 25 MEQ EFFERV TAB ONE (18:41)
--- NOTE | 2022-11-08 18:48 | EDPHYS ---
Physician Documentation [facility] Name: Heaven Bhatia Age: 61 yrs Sex: Female : 1960 Arrival Date: 11/08/2022 Time: 16:02 Bed 11 Private MD: ED Physician Alhaji Mays HPI: 11/08 16:20 This 61 yrs old Female presents to ER via EMS with complaints of Fall Injury, Suicidal cp Ideation. 16:20 generalized pain and pain all over. cp 16:20 Onset: The symptoms/episode began/occurred chronic. Severity of symptoms: in the emergency department the symptoms are unchanged despite EMS interventions. Patient presents to ED by EMS after reportedly being found on ground after reported fall. Patient admits to consuming alcohol today. Historical: - Allergies: 16:09 No Known Allergies; kc6 - PMHx: 16:09 chronic back pain; etoh abuse; Hyperlipidemia; Hypertensive disorder; Seizure; kc6 - PSHx: 16:09 Appendectomy; kc6 - Immunization history:: Client reports having NOT received the Covid vaccine. Flu vaccine is not up to date. - Social history:: Smoking status: Patient reports the use of cigarette tobacco products, smokes one pack cigarettes per day. ROS: 16:25 Constitutional: Positive for pain all over, Negative for chills, fever, poor PO intake. cp 16:25 Respiratory: Negative for cough, shortness of breath, wheezing. cp 16:25 Back: Positive for pain at rest. Exam: 16:30 Constitutional: The patient appears in no acute distress, alert, awake, cp non-diaphoretic, non-toxic, well developed, well nourished. 16:30 Head/Face: Normocephalic, atraumatic. cp 16:30 Eyes: Periorbital structures: appear normal, Pupils: equal, round, and reactive to cp light and accomodation, Extraocular movements: intact throughout, Conjunctiva: normal, no exudate, no injection, Sclera: no appreciated abnormality, Lids and lashes: appear normal, bilaterally. 16:30 ENT: External ear(s): are unremarkable, Ear canal(s): are normal, TM's: dullness, cp bilaterally, Nose: is normal, Mouth: Lips: moist, Oral mucosa: pink and intact, moist, Posterior pharynx: is normal, airway is patent, no erythema, no exudate. 16:30 Neck: C-spine: vertebral tenderness, is not appreciated, crepitus, is not appreciated, ROM/movement: limited range of motion, is not appreciated, nuchal rigidity, is not appreciated. 16:30 Chest/axilla: Inspection: normal, Palpation: is normal, no crepitus, no tenderness. 16:30 Cardiovascular: Rate: normal, Rhythm: regular. 16:30 Respiratory: the patient does not display signs of respiratory distress, Respirations: normal, no use of accessory muscles, no retractions, labored breathing, is not present, Breath sounds: are clear throughout, no decreased breath sounds, no stridor, no wheezing. 16:30 Abdomen/GI: Inspection: abdomen appears normal, Bowel sounds: active, all quadrants, Palpation: abdomen is soft and non-tender, in all quadrants. 16:30 Back: pain, that is moderate, diffuse, ROM is painful, with all movement, vertebral tenderness, is not appreciated. 16:30 Musculoskeletal/extremity: Exam is negative for decreased range of motion, deformity. 16:30 Neuro: Orientation: to person, place, situation, Mentation: able to follow commands, slow to respond, Motor: moves all fours, strength is normal, Sensation: no obvious gross deficits. 16:33 ECG was reviewed by the Attending Physician. Vital Signs: 16:07 BP 125 / 70; Pulse 72; Resp 24; Pulse Ox 95% on 2 lpm NC; Weight 67.59 kg (R); Height 5 kc6 ft. 2 in. (R); 17:23 BP 132 / 76; Pulse 74; Resp 15 S; Pulse Ox 98% on 2 lpm NC; kc6 16:07 Body Mass Index 27.25 (67.59 kg, 157.48 cm) kc6 MDM: 17:00 Differential Diagnosis sepsis, flu, multiple trauma. cp 18:33 Data reviewed: vital signs, nurses notes, lab test result(s), EKG, radiologic studies, cp CT scan, plain films. Consideration of Admission/Observation Escalation of care including admission/observation considered. ED course: Reviewed results of today's labs and radiology studies. Significant other at bedside. Patient denies any suicidal and/or homicidal ideations at this time. Patient requesting discharge to home with significant other. 18:47 Patient medically screened. cp 11/08 16:15 Order name: Basic Metabolic Panel; Complete Time: 17:31 cp 06/ 17:31 Interpretation: Normal except: K 3.2; GLUC 72; CRE 0.48; CA 8.2. cp 06/ 16:15 Order name: CBC with Diff; Complete Time: 17:06 cp 11/08 17:06 Interpretation: Normal except: RBC 3.30; HGB 11.3; HCT 32.9; RDW 16.0; MPV 6.9; MN% cp 13.8. 06/ 16:15 Order name: LFT's; Complete Time: 17:31 cp 06 17:31 Interpretation: Normal except: AST 51; ALB 3.0; A/G 0.9. cp / 16:15 Order name: Magnesium; Complete Time: 17:31 cp 11/08 16:15 Order name: NT PRO-BNP; Complete Time: 17:31 cp 11/08 17:33 Interpretation: NT PRO-BNP 449; Reviewed. cp 11/08 16:15 Order name: PT-INR; Complete Time: 17:06 cp 11/08 16:15 Order name: Troponin HS; Complete Time: 17:31 cp 11/08 16:15 Order name: CK; Complete Time: 17:31 cp 11/08 16:15 Order name: Acetaminophen; Complete Time: 17:31 cp 11/08 16:15 Order name: ETOH Level; Complete Time: 17:31 cp 11/08 17:32 Interpretation: Abnormal: ETOH 322. cp 11/08 16:15 Order name: Ptt, Activated; Complete Time: 17:06 cp 11/08 16:15 Order name: Salicylate; Complete Time: 17:31 cp 11/08 16:15 Order name: Urine Drug Screen; Complete Time: 17:31 cp 11/08 17:33 Interpretation: Normal except: BZO POSITIVE. cp 11/08 16:15 Order name: XRAY Chest (1 view); Complete Time: 17:06 cp 06/07 17:06 Interpretation: Report review. cp 11/08 16:15 Order name: CT Traumagram (Head C Spine CAP W Con); Complete Time: 18:22 cp 11/08 16:15 Order name: EKG; Complete Time: 16:16 cp 11/08 17:01 Order name: Diet Finger Food; Complete Time: 17:01 6 11/08 16:15 Order name: Cardiac monitoring; Complete Time: 16:15 11/08 16:15 Order name: EKG - Nurse/Tech; Complete Time: 16:26 11/08 16:15 Order name: IV Saline Lock; Complete Time: 16:26 11/08 16:15 Order name: Labs collected and sent; Complete Time: 16:26 11/08 16:15 Order name: O2 Per Protocol; Complete Time: 16:15 11/08 16:15 Order name: O2 Sat Monitoring; Complete Time: 16:15 11/08 16:15 Order name: Suicide Screening ([place]); Complete Time: 16:26 EC:33 Rate is 72 beats/min. Rhythm is regular. NM interval is normal. QRS interval is normal. cp QT interval is normal. Interpreted by me. Reviewed by me. Administered Medications: 16:55 Drug: Ketorolac IVP 15 mg Route: IVP; Site: right antecubital; kc6 18:32 Follow up: Response: No adverse reaction; Pain is unchanged, physician notified; RASS: kc6 Alert and Calm (0) 18:38 Drug: Potassium PO Effervescent Tablet 50 mEq Route: PO; kc6 18:49 Follow up: Response: No adverse reaction kc6 Disposition: 20:06 Co-signature as Attending Physician, Alhaji CESPEDES was immediately available on-site ms3 in the Emergency Department for consultation in the care of the patient. Disposition Summary: 11/08/22 18:47 Discharge Ordered Location: Home cp Problem: new cp Symptoms: have improved cp Condition: Stable cp Diagnosis - Alcohol abuse with intoxication cp - Fall on same level, unspecified cp - Chronic pain, not elsewhere classified cp Followup: cp - With: Private Physician - When: 1 - 2 days - Reason: Recheck today's complaints Discharge Instructions: - Discharge Summary Sheet cp - Alcohol Intoxication cp - Chronic Pain, Adult cp - Fall Prevention in the Home, Adult cp - Alcohol Abuse and Nutrition cp - Alcohol Abuse and Dependence Information, Adult cp Forms: - Medication Reconciliation Form cp - Thank You Letter cp - Antibiotic Education cp - Prescription Opioid Use cp Signatures: Dispatcher [employer] EDKY Zach Salazar PA PA cp Sims, Marcus, DO DO ms3 Opal Nava, RN RN kc6 Corrections: (The following items were deleted from the chart) 16:10 16:09 Allergies: Unable to obtain; kc6 kc6
--- NOTE | 2022-11-08 18:48 | ER ---
Nurse's Notes [facility] Name: Heaven Bhatia Age: 61 yrs Sex: Female : 1960 Arrival Date: 11/08/2022 Time: 16:02 Bed 11 Private MD: Diagnosis: Alcohol abuse with intoxication;Fall on same level, unspecified;Chronic pain, not elsewhere classified Presentation: 11/08 16:07 Chief complaint: EMS states: pt had a fall while at home with her , no LOC was kc6 on the ground for about 30min. reports pt has had approximately 4 alcoholic drinks today. pt in hallway on EMS stretcher stating "kill me, let me go. Iwant to meet Carlo." EMS reports pt was here last week for SI. Coronavirus screen: At this time, the client does not indicate any symptoms associated with coronavirus-19. Ebola Screen: No symptoms or risks identified at this time. Initial Sepsis Screen: Does the patient meet any 2 criteria? No. Patient's initial sepsis screen is negative. Does the patient have a suspected source of infection? No. Patient's initial sepsis screen is negative. Risk Assessment: Do you want to hurt yourself or someone else? Patient reports desire/thoughts of hurting themselves or someone else. Provider notified. Onset of symptoms was November 08, 2022. 16:07 Method Of Arrival: EMS: [facility] kc6 16:07 Acuity: MARILYNN 2 kc6 Triage Assessment: 16:09 General: Appears in no apparent distress. comfortable, Behavior is cooperative, kc6 appropriate for age. Pain: Complains of pain in left arm. EENT: No signs and/or symptoms were reported regarding the EENT system. Neuro: Matos Agitation-Sedation Scale (RASS): -1 Drowsy Level of Consciousness is awake, alert, obeys commands, Oriented to person, place, time, situation, Appropriate for age. Cardiovascular: Capillary refill < 3 seconds. Respiratory: Airway is patent Trachea midline Respiratory effort is even, unlabored, Respiratory pattern is regular, symmetrical. GI: No signs and/or symptoms were reported involving the gastrointestinal system. : No signs and/or symptoms were reported regarding the genitourinary system. Derm: Skin has skin tears on left forearm Skin is pink, warm \\T\\ dry. Musculoskeletal: No signs and/or symptoms reported regarding the musculoskeletal system. Circulation, motion, and sensation intact. Capillary refill < 3 seconds, Range of motion: intact in all extremities. Historical: - Allergies: 16:09 No Known Allergies; kc6 - PMHx: 16:09 chronic back pain; etoh abuse; Hyperlipidemia; Hypertensive disorder; Seizure; kc6 - PSHx: 16:09 Appendectomy; kc6 - Immunization history:: Client reports having NOT received the Covid vaccine. Flu vaccine is not up to date. - Social history:: Smoking status: Patient reports the use of cigarette tobacco products, smokes one pack cigarettes per day. Screenin:11 [facility] ED Fall Risk Assessment (Adult) History of falling in the last 3 months, kc6 including since admission Yes- single mechanical fall (1 pt) Confusion or Disorientation Yes (5 pts) Intoxicated or Sedated Yes (3 pts) Impaired Gait No (0 pts) Mobility Assist Device Used No (0 pt) Altered Elimination No (0 pt) Score/Fall Risk Level 3 or more points = High Risk Oriented to surroundings, Maintained a safe environment, Educated pt \\T\\ family on fall prevention, incl call for assistance when getting out of bed, Assessed \\T\\ reinforced patient's understanding of fall precautions, Hourly rounding (assess needs \\T\\ fall precautionary measures) done. Abuse screen: Denies threats or abuse. Denies injuries from another. Nutritional screening: No deficits noted. Tuberculosis screening: No symptoms or risk factors identified. Assessment: 16:11 Reassessment: please see triage assessment. [facility] 17:10 Reassessment: Patient appears in no apparent distress at this time. No changes from [facility] previously documented assessment. Patient and/or family updated on plan of care and expected duration. Pain level reassessed. Patient is alert, oriented x 3, equal unlabored respirations, skin warm/dry/pink. 18:02 Reassessment: Patient appears in no apparent distress at this time. No changes from [facility] previously documented assessment. Patient and/or family updated on plan of care and expected duration. Pain level reassessed. Patient is alert, oriented x 3, equal unlabored respirations, skin warm/dry/pink. Vital Signs: 16:07 BP 125 / 70; Pulse 72; Resp 24; Pulse Ox 95% on 2 lpm NC; Weight 67.59 kg (R); Height 5 kc6 ft. 2 in. (R); 17:23 BP 132 / 76; Pulse 74; Resp 15 S; Pulse Ox 98% on 2 lpm NC; kc6 16:07 Body Mass Index 27.25 (67.59 kg, 157.48 cm) kc6 ED Course: 16:04 Patient arrived in ED. bd 16:07 Opal Nava, ELIANE is Primary Nurse. kc6 16:08 Zach Salazar PA is PHCP. cp 16:08 Melchor Jj MD is Attending Physician. cp 16:09 Triage completed. kc6 16:09 Arm band placed on. kc6 16:12 Patient has correct armband on for positive identification. Bed in low position. Call kc6 light in reach. Side rails up X2. 16:26 Radiology exam delayed due to lab results not completed at this time. (BUN/Creatinine) [id number] IV insertion attempt and/or patient not having appropriate IV at this time. 16:27 Inserted saline lock: 20 gauge in right antecubital area, using aseptic technique. kc6 Blood collected. 16:39 Alhaji Mays DO is Attending Physician. cp 16:46 XRAY Chest (1 view) In Process Unspecified. EDMS 16:55 Urine Drug Screen Sent. kc6 17:44 CT Traumagram (Head C Spine CAP W Con) In Process Unspecified. EDMS 18:49 No provider procedures requiring assistance completed. IV discontinued, intact, kc6 bleeding controlled, No redness/swelling at site. Pressure dressing applied. Administered Medications: 16:55 Drug: Ketorolac IVP 15 mg Route: IVP; Site: right antecubital; kc6 18:32 Follow up: Response: No adverse reaction; Pain is unchanged, physician notified; RASS: kc6 Alert and Calm (0) 18:38 Drug: Potassium PO Effervescent Tablet 50 mEq Route: PO; kc6 18:49 Follow up: Response: No adverse reaction kc6 Medication: 18:49 VIS not applicable for this client. kc6 Outcome: 18:47 Discharge ordered by . cp 18:49 Discharged to home via wheelchair, with friend. kc6 18:49 Condition: improved 18:49 Discharge instructions given to patient, Instructed on discharge instructions, follow up and referral plans. Demonstrated understanding of instructions, follow-up care. 18:58 Patient left the ED. kc6 Signatures: Dispatcher [employer] EDMS Shameka Willson Zach Xiao PA PA cp Campbell, Kaitlyn, RN RN kc6 Lizett Phillip [id number] Corrections: (The following items were deleted from the chart) 16:10 16:09 Allergies: Unable to obtain; kc6 kc6 16:13 16:07 Chief complaint: EMS states: pt had a fall while at home with her , no kc6 LOC. reports pt has had approximately 4 alcoholic drinks today. pt in hallways stating "kill me, let me go. i want to meet carlo." kc6 16:15 16:07 Chief complaint: EMS states: pt had a fall while at home with her , no kc6 LOC. reports pt has had approximately 4 alcoholic drinks today. pt in hallway on EMS stretcher stating "kill me, let me go. Iwant to meet Carlo." EMS reports pt was here last week for SI kc6
--- NOTE | 2022-11-10 14:52 | EKG ---
Test Date: 2022-11-08 Test Time: 16:25:13 Sales Ledger Clerk: REGAN MEASUREMENT RESULTS: Intervals: Rate: 72 DC: 168 QRSD: 92 QT: 402 QTc: 440 [place]: P: 75 DC: 168 QRS: 2 T: 66 INTERPRETIVE STATEMENTS: Normal sinus rhythm Septal infarct, age undetermined Abnormal ECG Compared to ECG 11/06/2022 10:12:08 No significant changes Electronically Signed On 11-10-22 14:45:07 CDT by Wesly Duvall
== END 2022-11-08 18:58 | disposition home or self-care (01) ==
LOC: ER 16:02
DX: F10.129 Alcohol abuse with intoxication, unspecified (principal); G89.29 Other chronic pain; W18.30XA Fall on same level, unspecified, initial encounter; Z72.0 Tobacco use
CPT/HCPCS: 93005; 85025; 80048; 36415; 83735; 82550; 85610; 80076; 85730; 84484; 83880; 80307; 70450; 72125; 71260; 74177; 71045; 96374; 99284; 80143; 80179; 82077; Q9967

== ENCOUNTER 2022-12-04 00:40 | Inpatient (IN) | payer OTHER ==
--- OUTSIDE RECORDS SUMMARY | 2022-12-04 00:48 | XMS REPORT | Continuity of Care Document ---
:1960 Author Organization [facility] t Address [address] [place] [address] Care Team Providers Name Role Phone Sharpless Primary Care Physician Hero Tamez Attending Clinician Unavailable Loren Lynn Attending Clinician Unavailable Bailey Salomon Attending Clinician Unavailable CALLUM CERRATO Attending Clinician Unavailable CHRISTELLE GARDNER Admitting Clinician Unavailable Payers Payer Name Policy Type Policy Number Effective Date Expiration Date S ource MEDICARE MB [id number] 2008 [facility] NOVITAS 00:00: [facility] C1 [id number] [facility] Problems Condition Condition Condition Status Onset Resolution Last Treating Co mments Source Name Details Category Date Date Treatment Clinician Date Alcohol Alcohol Disease Recurre [facility] intox[facility] intoxic[facility] nce 08-29 Randee kes on on 00:00: Medical 00 [place] Suicidal Suicidal Disease Active [facility]29 [facility] 00:00: Medical 00 [place] Fall, Fall, Disease Active [facility] initial initial 08-29 [facility] encounter encounter 00:00: Medi yoan 00 [place] Allergic Allergic Problem Commo n rhinitis rhinitis [facility] Hypothyroi Hypothyroi Problem C ommon dism dism [facility] Constipati Constipati Problem C ommon on on [facility] Hyperlipid Hyperlipid Problem C ommon emia emia [facility] [id number] Depression Problem Com mon with Spirit anxiety [facility] Hypotensio Hypotensio Problem C ommon n n Spirit [facility] Obesity Mild Problem Common obesity [facility] Seizure Seizures Problem Common [facility] Localized Localized Problem Com mon swelling, swelling, Spir it mass and mass and - CHI lump, neck lump, neck [facility] [id number] Primary Problem Common insomnia [facility] [id number] Localized Problem Comm on osteoporos Spirit is, - [facility] unspecifie [facility] pathologic Medica l al [place] fracture presence [id number] 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 [facility] Nicotine Nicotine Problem Commo n dependence dependence Sp wanda [facility] Vitamin D Vitamin D Problem Com mon deficiency deficiency [facility] Nausea and Intractabl Problem C ommon vomiting e vomiting Sp[facility] [id number] Gastroesop Problem Co mmon hageal Spirit reflux - [facility] disease [facility] esophagiti Medica l s Center [id number] Urinary Problem Commo n frequency [facility] Essential Benign Problem Common hypertensi essential Spi rit on HTN [facility] [id number] Vomiting Problem [place] [id number] without Spirit nausea, - [facility]I intractabi [facility] vomiting Medical not Center specified, unspecifie d vomiting type Tobacco Cigarette Problem Commo n user nicotine Spirit dependence - [facility] without complicati [facility] Epigastric Epigastric Problem C ommon pain pain [facility] Abnormal Abnormal Problem Commo n weight weight Spirit loss loss [facility] Allergies, Adverse Reactions, Alerts Allergy Allergy Status Severity Reaction(s) Onset Inactive Treating Comm ents Source Name Type Date Date Clinician NO KNOWN Allergy Active [facility] morphine morphine Active nausea Common [facility] Social History Social Habit Start Date Stop Date Quantity Comments Source History of Current Smoker [facility] Spi rit - Tobacco Use [facility] Alcohol intake 2016-08-28 2016-08-28 Current drinker [facility] Farida Nathan 00:00:00 00:00:00 of [facility] (finding) Sex Assigned At [birth year] LIZBETH Martinez 00:00:00 00:00:00 [facility] Smoking Status Start Date Stop Date Source Current Smoker 2022-01-16 00:00:00 [facility] Medications Ordered Filled Start Stop Current Ordering Indication Dosage Frequency Signature Comments Components Source Medication Medication Date Date Medication? Clinician (SIG) Name Name Nystatin Nystatin 2020-06- No 1{appli BID Nystatin [id number] 2-04 07-06 cation_ [id number] UNIT/GM UNIT/GM 00:00: 00:00 to_affe UNIT/GM 00 :00 cted_ar ea} Triamcinolo Triamcinolo 2020-0 Yes Na Salomon 1 Common ne ne 5-08 applicatio Spirit Acetonide Acetonide 00:00: n to - C HI 00 affected [facility] Triamcinolo Triamcinolo 2020-0 No 1{appli BID [...] on -16 Spirit 00:00: - [facility] 00 [facility] Xanax 0.5 Xanax 0.5 2018- No [...] Yes 5000U Q7D Take 5,[address] michelel, 3-28 Units by [facility] vitamin D3, 14:35: [...] Spir it empty - [facility]I stomach in [facility] Furosemide Furosemide Yes Na Salomon 1 tablet Common [facility] Cymbalta Cymbalta Yes Na Salomon 1 capsule Common [facility] Cozaar Cozaar Yes Na Salomon 1 tablet Comm on [facility] Pravastatin Pravastatin Yes Na Salomon 1 tablet Common Sodium Sodium [facility] Omeprazole Omeprazole Yes Na Salomon 1 capsule Common [facility] ProAir HFA ProAir HFA Yes Na Salomon 1 puff as Common needed [facility] Ambien Ambien Yes Na Salomon 1 tablet Comm on at bedtime Spirit as needed [facility] Phenytoin Phenytoin Yes Na Salomon not Co mmon defined [facility] Furosemide Furosemide Yes Na Salomon 1 tablet Common [facility] Advair Advair Yes Na Salomon 1 puff Common Diskus Diskus [facility] Dilaudid Dilaudid Yes Na Salomon 1 tablet Common as needed [facility] Trazodone Trazodone Yes Na Salomon 1 tablet Common HCl HCl at bedtime Spirit as needed [facility] Potassium Potassium Yes Na Salomon not Co mmon defined [facility] Dilantin Dilantin Yes Na Salomon 5 capsule Common [facility] Amitiza Amitiza Yes Na Salomon 1 capsule C ommon with food [facility] and water [facility] Phenytoin Phenytoin No Phenytoin Potassium Potassium [...] Date Status Commen ts Source Name Name FluApplication Security FluAD 2019-02-13 Completed [facility] 11:33:00 - [facility] FluAD FluAD 2019-02-13 Completed [facility] 11:33:00 - [facility] FluAD FluAD 2019-02-13 Completed [facility] 11:33:00 - [facility] FluAD FluAD 2019-02-13 Completed [facility] 11:33:00 - [facility] FluAD FluAD 2019-02-13 Completed [facility] 11:33:00 - [facility] FluAD FluAD 2019-02-13 Completed [facility] 11:33:00 - [facility] FluAD FluAD 2019-02-13 Completed [facility] 11:33:00 - [facility] FluAD FluAD 2019-02-13 Completed [facility] 11:33:00 - [facility] FluAD FluAD 2019-02-13 Completed [facility] 11:33:00 - [facility] FluAD FluAD 2019-02-13 Completed [facility] 11:33:00 - [facility] FluAD FluAD 2019-02-13 Completed [facility] 11:33:00 - [facility] FluAD FluAD 2019-02-13 Completed [facility] 11:33:00 - [facility] FluAD FluAD 2019-02-13 Completed [facility] 00:00:00 - [facility] Vital Signs Vital Name Observation Time Observation Value Comments Source height 2022-03-17 11:40:00 62.00 [in_i] [facility] C enter weight 2022-03-17 11:40:00 127 [lb_av] [facility] enter bmi 2022-03-17 11:40:00 23.23 kg/m2 [facility] enter Procedures This patient has no known procedures. Encounters Start End Encounter Admission Attending Care Care Encounter Source Date/Time Date/Time Type Type Clinicians Facility Department ID 2022-11-22 Outpatient Tamez, STLMLC STLC [id number] Common 10:46:00 Hero [id number] [facility] 2022-10-18 Outpatient Tamez, STLMLC STLMLC [id number] Common 09:32:00 Hero [id number] [facility] 2022-08-09 Outpatient Leah, STLMLC STLMLC [id number] Common 09:29:01 Loren [id number] [facility] 2022-01-13 Outpatient Bailey Salomon ST[facility]ONI[facility] STLC [id number] 2 Common 10:39:00 [id number] [facility] 2021-10-17 Outpatient Bailey Salomon [facility] ST[facility] [id number] Common 15:22:39 [facility] 2021-06-29 Outpatient Salomon, Na STLMLC STLMLC [id number] Common 12:36:25 [id number] [facility] 2021-06-29 Outpatient Salomon, Na STLMLC STLMLC [id number] Common 12:35:33 [id number] [facility] 2021-06-29 Outpatient Salomon, Na STLMLC STLMLC [id number] Common 12:07:12 [id number] [facility] 2021-06-29 Outpatient Salomon, Na STLMLC STLMLC [id number] Common 12:06:16 [id number] [facility] 2021-06-29 Outpatient Salomon, Na STLMLC STLMLC [id number] 2 Common 11:38:53 [id number] [facility] 2021-06-29 Outpatient Salomon, Na STLMLC STLMLC [id number] Common 11:36:25 [id number] [facility] 2021-06-29 Outpatient Salomon, Na STLMLC STLMLC [id number] 2 Common 11:17:48 [id number] [facility] 2021-06-29 Outpatient Salomon, Na STLMLC STLMLC [id number] Common 11:01:55 [id number] [facility] 2022-07-04 2022-07-04 (TEL) STLMLC STLMLC [id number] Co mmon 00:00:00 00:00:00 [facility] 2022-06-12 2022-06-12 (TEL) STLMLC STLMLC [id number] Co mmon 00:00:00 00:00:00 [facility] 2022-03-17 2022-03-17 OFFICE STLMLC STLMLC [id number] Co mmon 00:00:00 00:00:00 VISIT [facility] 4 [facility] 2021-12-28 2021-12-28 (TEL) STLMLC STLMLC [id number] Co mmon 00:00:00 00:00:00 [facility] 2021-10-17 2021-10-17 OFFICE STLMLC STLMLC [id number] Co mmon 00:00:00 00:00:00 VISIT [facility] 4 [facility] 2021-10-14 2021-10-14 (TEL) STLMLC STLMLC [id number] Co mmon 00:00:00 00:00:00 [facility] 2021-10-04 2021-10-04 (TEL) STLMLC STLMLC [id number] Co mmon 00:00:00 00:00:00 [facility] 2021-09-14 2021-09-14 (TEL) STLMLC STLMLC [id number] Co mmon 00:00:00 00:00:00 [facility] 2021-09-06 2021-09-06 (TEL) STLMLC STLMLC [id number] Co mmon 00:00:00 00:00:00 [facility] 2021-08-29 2021-08-29 (TEL) STLMLC STLMLC [id number] Co mmon 00:00:00 00:00:00 [facility] 2021-05-06 2021-05-06 (TEL) STLMLC STLMLC [id number] Co mmon 00:00:00 00:00:00 [facility] 2021-04-27 2021-04-27 (TEL) STLMLC STLMLC [id number] Co mmon 00:00:00 00:00:00 [facility] 2020-10-21 2020-10-21 Outpatient STLMLC STLMLC [id number] Common 00:00:00 00:00:00 [facility] 2020-10-20 2020-10-20 Outpatient STLMLC STLMLC [id number] Common 00:00:00 00:00:00 [facility] 2020-08-06 2020-08-06 Outpatient STLMLC STLMLC [id number] Common 00:00:00 00:00:00 [facility] 2020-07-22 2020-07-22 Outpatient STLMLC STLMLC [id number] Common 00:00:00 00:00:00 [facility] 2020-03-24 2020-03-24 Outpatient STLMLC STLMLC [id number] Common 00:00:00 00:00:00 [facility] 2020-01-24 2020-01-24 [id number] Common 12:20:00 12:20:[address] [facility] 2020-01-23 2020-01-23 [facility] [id number] Common 14:00:00 14:00:[address] [facility] 2020-01-23 2020-01-23 [facility] [id number] Common 13:00:00 13:00:[address] [facility] 2020-01-02 2020-01-02 [facility] [id number] Common 15:48:00 15:48:[address] [facility] 2019-10-10 2019-10-10 [facility] [id number] Common 14:09:00 14:09:[address] [facility] 2019-06-23 2019-06-23 [facility] [id number] Common 16:20:00 16:20:[address] [facility] 2019-05-19 2019-05-19 [facility] [id number] Common 10:55:00 10:55:[address] [facility] 2019-04-01 2019-04-01 [facility] [id number] Common 16:27:00 16:27:[address] [facility] 2019-04-01 2019-04-01 [facility] [id number] Common 15:56:00 15:56:[address] [facility] 2019-04-01 2019-04-01 [facility] [id number] Common 10:41:00 10:41:[address] [facility] 2019-02-13 2019-02-13 [facility] [id number] Common 10:20:00 10:20:[address] [facility] 2019-02-10 2019-02-10 [facility] [id number] Common 16:38:00 16:38:[address] [facility] 2018-05-23 2018-05-23 [facility] [id number] Common 09:00:00 09:00:[address] [facility] 2018-04-15 2018-04-15 [facility] [id number] Common 11:00:00 11:00:[address] [facility] 2018-03-15 2018-03-15 [facility] [id number] Common 11:19:00 11:19:[address] [facility] 2018-02-21 2018-02-21 [facility] [id number] Common 10:45:00 10:45:[address] [facility] 2017-12-04 2017-12-04 [facility] [id number] Common 14:02:00 14:02:[address] [facility] 2017-11-21 2017-11-21 [facility] [id number] Common 15:15:00 15:15:[address] [facility] Results Test Description Test Time Test Comments [...] ng/mLAmphetamine/ 1000 ng/mL MethamphetamineOxycodone 300 ng/mLURINALYSIS W/ [id number] 05:47:00 Test Item Value Reference Range Interpretation [...] 516) SOURCE(BEAKER) (test code = Urine, Voided 7519) BASIC METABOLIC [id number] 02:25:00 Test Item Value Reference Range Interpretation [...] PATIEN TS. CBC W/PLT COUNT & AUTO [id number] 02:17:00 Test Item Value Reference Range Interpretation [...] K/ L 0.00-0.20 (test code = 417) [id number] 20:56:00 Test Item Value Reference Range Interpretation Comments ETHANOL (BEAKER) (test code = 400) 259 mg/dL <=10 H BASIC METABOLIC [id number] 20:55:00 Test Item Value Reference Range Interpretation [...] TO CALCULA TE ESTIMATED GFR. HEPATIC FUNCTION [id number] 20:54:00 Test Item Value Reference Range Interpretation [...] 6-55 347) CBC W/PLT COUNT & AUTO [id number] 20:36:00 Test Item Value Reference Range Interpretation [...]
[2022-12-04] MEDS ORDERED: NA CHLORIDE 0.9% 1,000 ML ONE ×2 (01:19→03:03)
[2022-12-04] MEDS ORDERED: ONDANSETRON 4 MG/2 ML VIAL ONE (01:19)
[2022-12-04] MEDS ORDERED: METHYLPREDNISOLONE 125 MG INJ ONE (01:19)
[2022-12-04] MEDS ORDERED: MORPHINE 2 MG/ML SYR ONE ×2 (01:19→01:42)
[2022-12-04 01:33] LABS: Protime INR 0.86
[2022-12-04 01:37] LABS: Absolute Lymphocytes (CBC) 1.4 K/uL (0.7-4.9); Hematocrit 41.4 % (36.0-45.0); Lymphocytes % 27.8 % (15.3-44.8); MCV 102.4 fL (80-100); MPV 7.4 fL (7.6-11.3); RBC Red Blood Cell Count 4.05 M/uL (3.86-4.86)
[2022-12-04] MEDS ORDERED: LORazepam 2 MG/ML VIAL ONE (01:49)
[2022-12-04 01:51] LABS: Albumin 3.7 g/dL (3.4-5.0); Bilirubin Direct 0.4 mg/dL (0-0.2); Bilirubin Indirect, Calculated 0.6 mg/dL (0.2-0.8); Magnesium 1.5 mg/dL (1.6-2.4); Potassium 3.9 mEq/L (3.5-5.1); Protein, Total 7.7 g/dL (6.4-8.2)
[2022-12-04 01:56] LABS: SARS-CoV-2 Antigen Rapid Res Negative (Negative)
[2022-12-04 02:08] LABS: Blood Morphology Comment NOT SEEN (NOT SEEN); Platelet Estimate ADEQ
[2022-12-04 02:17] LABS: Troponin High Sensitivity 75.5 pg/mL (<58.9)
[2022-12-04 02:34] LABS: Specific Gravity 1.023 (1.005-1.030); Urine Bacteria <20 /HPF (<20); Urine Bilirubin 1+ (Negative); Urine Blood Negative (Negative); Urine Clarity Turbid (Clear); Urine Color Yellow (Yellow); Urine Glucose NEGATIVE (Negative); Urine Mucus Slight /HPF (None Seen); Urine Protein 1+ (Negative); Urine RBC <5 /HPF (None Seen); Urine Urobilinogen 1+ (Normal); Urine pH 5.5 (5.0-7.0)
[2022-12-04] MEDS ORDERED: ASPIRIN 81 MG CHEWABLE TABLET ONE (02:42)
[2022-12-04] MEDS ORDERED: THIAMINE 200 MG/2 ML INJ ONE (02:42)
--- NOTE | 2022-12-04 02:42 | ER ---
Nurse's Notes [facility] Name: Heaven Age: 61 yrs Sex: Female : 1960 Arrival Date: 12/04/2022 Time: 00:40 Bed 20 Private MD: Diagnosis: COPD/ Chronic obstructive pulmonary disease with (acute) exacerbation;Abnormal levels of other serum enzymes-elevated troponin;Hypomagnesemia;Weakness;Alcohol abuse Presentation: 12/04 00:49 Chief complaint: EMS states: NAUSEA AND VOMITING, GENERALIZED PAIN SINCE 10PM TODAY. rv LAST ALCOHOL INTAKE WAS SUNDAY. Coronavirus screen: Vaccine status:. Ebola Screen: Patient negative for fever greater than or equal to 101.5 degrees Fahrenheit, and additional compatible Ebola Virus Disease symptoms Patient denies exposure to infectious person. Patient denies travel to an Ebola-affected area in the 21 days before illness onset. Initial Sepsis Screen: Does the patient meet any 2 criteria? No. Patient's initial sepsis screen is negative. Does the patient have a suspected source of infection? No. Patient's initial sepsis screen is negative. Risk Assessment: Do you want to hurt yourself or someone else? Patient reports no desire to harm self or others. Onset of symptoms was December 03, 2022 at 22:00. 00:49 Method Of Arrival: EMS: [facility] rv 00:49 Acuity: MARILYNN 3 rv Triage Assessment: 00:50 General: Appears uncomfortable, ill, Behavior is agitated. Pain: Complains of pain in rv GENERALIZED. Neuro: Level of Consciousness is awake, alert, obeys commands, Oriented to person, place, time, situation. Cardiovascular: Capillary refill < 3 seconds. Respiratory: Airway is patent Respiratory effort is even, unlabored. GI: Pt is actively vomiting undigested food. Musculoskeletal:. Historical: - PMHx: 00:50 chronic back pain; etoh abuse; Hyperlipidemia; Hypertensive disorder; Seizure; rv - PSHx: 00:50 Appendectomy; rv - Immunization history:: Adult Immunizations up to date. - Social history:: Smoking status: unknown. Screenin:52 Clinical Agness Withdrawal Assessment for Alcohol, revised (CIWA-Ar): rv Nausea/Vomitin - Constant nausea, frequent dry heaves and vomiting. Headache: 2 - Mild Paroxysmal Sweats: 0 - No sweats visible Anxiety: 4 - Moderately anxious, guarded Agitation: 4 - Moderately fidgety and restless Tremor: 4 - Moderate when client's hands extended Auditory Disturbances: 0 - Not present Visual Disturbances: 0 - Not present Tactile Disturbances: 0 - None Orientation and Clouding of Sensorium: 0 - Oriented and can do serial additions Total Score: > 20: Severe Withdrawal. [facility] ED Fall Risk Assessment (Adult) History of falling in the last 3 months, including since admission No falls in past 3 months (0 pts) Confusion or Disorientation No (0 pts) Intoxicated or Sedated No (0 pts) Impaired Gait No (0 pts) Mobility Assist Device Used No (0 pt) Altered Elimination No (0 pt) Score/Fall Risk Level 0 - 2 = Low Risk Oriented to surroundings, Maintained a safe environment, Educated pt \T\ family on fall prevention, incl call for assistance when getting out of bed, Assessed \T\ reinforced patient's understanding of fall precautions, Provided non-skid footwear, Hourly rounding (assess needs \T\ fall precautionary measures) done, Used ambulatory aids as needed (educated on \T\ assisted with), Used gait belt as appropriate. Abuse screen: Denies threats or abuse. Denies injuries from another. Nutritional screening: No deficits noted. Tuberculosis screening: No symptoms or risk factors identified. Assessment: 03:32 General: Appears comfortable, Behavior is calm, cooperative. Neuro: Level of rv Consciousness is awake, alert, obeys commands, Oriented to person, place, time, situation. Cardiovascular: Capillary refill < 3 seconds Rhythm is sinus tachycardia. Respiratory: Airway is patent Respiratory effort is even, unlabored. Vital Signs: 00:49 BP 172 / 112; Pulse 124; Resp 24; Temp 99.1; Pulse Ox 100% ; rv 01:45 BP 171 / 98; Pulse 107; Resp 18; Pulse Ox 96% on R/A; rv 03:00 BP 171 / 98; Pulse 105; Resp 20; Pulse Ox 97% on R/A; rv 03:32 BP 161 / 87; Pulse 104; Resp 20; Pulse Ox 96% on 2 lpm NC; rv 03:47 Weight 75.3 kg (M); rv 04:32 BP 153 / 80; Pulse 100; Resp 16; Pulse Ox 96% on 2 lpm NC; rv 07:11 BP 143 / 81; Pulse 72; Resp 14; Pulse Ox 100% on NC; os ED Course: 00:43 Patient arrived in ED. ll3 00:48 Curtis Echeverria, ELIANE is Primary Nurse. rv 00:50 Triage completed. rv 00:52 Arm band placed on right wrist. rv 00:53 No provider procedures requiring assistance completed. Inserted saline lock: 20 gauge rv in right antecubital area, using aseptic technique. Blood collected. 00:54 Patient has correct armband on for positive identification. Bed in low position. Call rv light in reach. Side rails up X2. Client placed on continuous cardiac and pulse oximetry monitoring. NIBP monitoring applied. ekg monitor tech on. 00:56 Zach Hernandez MD is Attending Physician. enrike 01:45 XRAY Chest (1 view) In Process Unspecified. EDMS 02:40 Coby Scott MD is Hospitalizing Provider. enrike 04:32 Patient admitted, IV remains in place. rv Administered Medications: 01:09 Drug: NS 0.9% IV 1000 ml Route: IV; Rate: 1 bolus; Site: right antecubital; rv 02:30 Follow up: Response: No adverse reaction; IV Status: Completed infusion; IV Intake: rv 1000ml 01:10 Drug: morphine IVP or IV 2 mg Route: IVP; Infused Over: 4 mins; Site: right antecubital;rv 02:30 Follow up: Response: No adverse reaction; Pain is decreased rv 01:10 Drug: Ondansetron IVP 4 mg Route: IVP; Site: right antecubital; rv 02:30 Follow up: Response: No adverse reaction; Nausea is decreased rv 01:12 Drug: MethylPrednisoLONE IVP 125 mg Route: IVP; Site: right antecubital; rv 02:30 Follow up: Response: No adverse reaction rv 01:35 Drug: morphine IVP or IV 2 mg Route: IVP; Infused Over: 4 mins; Site: right antecubital;rv 02:30 Follow up: Response: No adverse reaction; Pain is decreased rv 01:45 Drug: Ativan IVP 1 mg Route: IVP; Site: right antecubital; rv 02:30 Follow up: Response: No adverse reaction rv 02:36 Drug: Aspirin PO Chewable Tablet 162 mg Route: PO; rv 03:34 Follow up: Response: No adverse reaction rv 02:36 Drug: Thiamine IV 100 mg Route: IV; Rate: per protocol; Site: right antecubital; rv 03:33 Follow up: IV Status: Completed infusion rv 02:36 Drug: Ativan IVP 1 mg Route: IVP; Site: right antecubital; rv 03:33 Follow up: Response: No adverse reaction; Marked relief of symptoms rv 03:02 Drug: Magnesium Sulfate IVPB 2 grams Route: IVPB; Infused Over: 2 hrs; Site: left rv antecubital; 04:02 Follow up: Response: No adverse reaction; IV Status: Completed infusion; IV Intake: 50mlrv 03:02 Drug: Banana Bag - (NS 0.9% IV 1000 ml, foLIC Acid IVPB 1 mg, Thiamine IV 100 mg, rv Multivitamin IV 1 amp) Route: IV; Rate: 125 ml/hr; Site: right antecubital; 03:33 Follow up: IV Status: Infusion continued upon admission rv 03:15 Drug: Rocephin IV 1 grams Route: IV; Rate: per protocol; Site: right antecubital; rv 03:34 Follow up: Response: No adverse reaction; IV Status: Completed infusion rv Medication: 00:54 VIS not applicable for this client. rv Intake: 02:30 IV: 1000ml; Total: 1000ml. rv 04:02 IV: 50ml; Total: 1050ml. rv Outcome: 02:41 Decision to Hospitalize by Provider. enrike 04:32 Admitted to ER Hold. Please see [facility] for further documentation. rv 04:32 Condition: good 04:32 Instructed on the need for admit. 07:38 Patient left the ED. os Signatures: Dispatcher [employer] Zach Koo MD MD cha Vicente, Ronaldo RN RN rv Sebastien Ugarte RN RN 3 Tarun Singh RN RN os
--- NOTE | 2022-12-04 02:42 | EDPHYS ---
Physician Documentation [facility] Name: Heaven Bhatia Age: 61 yrs Sex: Female : 1960 Arrival Date: 12/04/2022 Time: 00:40 Bed 20 Private MD: SILVANA Physician Zach Hernandez HPI: 12/04 02:32 This 61 yrs old Female presents to ER via EMS with complaints of pain all enrike over, cough. 02:32 The patient has shortness of breath at rest, with light activity. Onset: The enrike symptoms/episode began/occurred 1 day(s) ago. Duration: The symptoms are continuous, and are steadily getting worse. The patient's shortness of breath is aggravated by coughing, walking. The patient or guardian reports cough, that is intermittent, difficulty breathing, flu symptoms, arthralgias, low-grade fever, myalgias. Modifying factors: The symptoms are alleviated by nothing. the symptoms are aggravated by activity, lying flat. cough, fever. Associated signs and symptoms: Pertinent positives: non-productive cough. Severity of symptoms: At their worst the symptoms were mild moderate in the emergency department the symptoms are unchanged. The patient has experienced similar episodes in the past, several times. Historical: - PMHx: 00:50 chronic back pain; etoh abuse; Hyperlipidemia; Hypertensive disorder; Seizure; rv - PSHx: 00:50 Appendectomy; rv - Immunization history:: Adult Immunizations up to date. - Social history:: Smoking status: unknown. ROS: 02:35 Constitutional: Negative for fever, chills, and weight loss, Eyes: Negative for injury, enrike pain, redness, and discharge, ENT: Negative for injury, pain, and discharge, Neck: Negative for injury, pain, and swelling, Cardiovascular: Negative for chest pain, palpitations, and edema, Abdomen/GI: Negative for abdominal pain, nausea, vomiting, diarrhea, and constipation, Back: Negative for injury and pain, : Negative for injury, bleeding, discharge, and swelling, MS/Extremity: Negative for injury and deformity, Skin: Negative for injury, rash, and discoloration, Neuro: Negative for headache, weakness, numbness, tingling, and seizure, Psych: Negative for depression, anxiety, suicide ideation, homicidal ideation, and hallucinations, Allergy/Immunology: Negative for hives, rash, and allergies, Endocrine: Negative for neck swelling, polydipsia, polyuria, polyphagia, and marked weight changes, Hematologic/Lymphatic: Negative for swollen nodes, abnormal bleeding, and unusual bruising. 02:35 Respiratory: Positive for cough, "sounds productive", shortness of breath, at rest. wheezing, expiratory. Exam: 02:35 Constitutional: This is a well developed, well nourished patient who is awake, alert, enrike and in no acute distress. Head/Face: Normocephalic, atraumatic. Eyes: Pupils equal round and reactive to light, extra-ocular motions intact. Lids and lashes normal. Conjunctiva and sclera are non-icteric and not injected. Cornea within normal limits. Periorbital areas with no swelling, redness, or edema. ENT: Nares patent. No nasal discharge, no septal abnormalities noted. Tympanic membranes are normal and external auditory canals are clear. Oropharynx with no redness, swelling, or masses, exudates, or evidence of obstruction, uvula midline. Mucous membranes moist. Neck: Trachea midline, no thyromegaly or masses palpated, and no cervical lymphadenopathy. Supple, full range of motion without nuchal rigidity, or vertebral point tenderness. No Meningismus. Chest/axilla: Normal chest wall appearance and motion. Nontender with no deformity. No lesions are appreciated. Abdomen/GI: Soft, non-tender, with normal bowel sounds. No distension or tympany. No guarding or rebound. No evidence of tenderness throughout. Back: No spinal tenderness. No costovertebral tenderness. Full range of motion. Female : Normal external genitalia. Skin: Warm, dry with normal turgor. Normal color with no rashes, no lesions, and no evidence of cellulitis. MS/ Extremity: Pulses equal, no cyanosis. Neurovascular intact. Full, normal range of motion. Neuro: Awake and alert, GCS 15, oriented to person, place, time, and situation. Cranial nerves II-XII grossly intact. Motor strength 5/5 in all extremities. Sensory grossly intact. Cerebellar exam normal. Normal gait. Psych: Awake, alert, with orientation to person, place and time. Behavior, mood, and affect are within normal limits. 02:35 Cardiovascular: Rate: tachycardic, actual rate is 107 bpm, Rhythm: regular, Pulses: Pulses are 4+ in bilateral radial, brachial, femoral, popliteal, posterior tibial and and dorsalis pedis arteries.. Heart sounds: normal, Edema: is not appreciated, JVD: is not appreciated. 02:35 ECG was reviewed by the Attending Physician. 02:35 Musculoskeletal/extremity: DVT Exam: No signs of deep vein thrombosis. no pain, no swelling, no tenderness, negative Homans' sign noted on exam, no appreciated bluish discoloration, no erythema, no increased warmth. Vital Signs: 00:49 BP 172 / 112; Pulse 124; Resp 24; Temp 99.1; Pulse Ox 100% ; rv 01:45 BP 171 / 98; Pulse 107; Resp 18; Pulse Ox 96% on R/A; rv 03:00 BP 171 / 98; Pulse 105; Resp 20; Pulse Ox 97% on R/A; rv 03:32 BP 161 / 87; Pulse 104; Resp 20; Pulse Ox 96% on 2 lpm NC; rv 03:47 Weight 75.3 kg (M); rv 04:32 BP 153 / 80; Pulse 100; Resp 16; Pulse Ox 96% on 2 lpm NC; rv 07:11 BP 143 / 81; Pulse 72; Resp 14; Pulse Ox 100% on NC; os MDM: 00:56 Patient medically screened. enrike 02:37 Differential diagnosis: Anemia asthma, Bronchitis CHF exacerbation, Chronic Obstructive enrike Pulmonary Disease obstructed airway, bronchitis, flu, URI. Antibiotic administration: Rocephin and Zithromax given. Differential Diagnosis altered mental status, sepsis, flu. Immunization status: Influenza vaccine: within last 5 years. Data reviewed: vital signs, nurses notes, EMS record, lab test result(s), EKG, radiologic studies, plain films. Consideration of Admission/Observation Escalation of care including admission/observation considered. I considered the following discharge prescriptions or medication management in the emergency department Medications were administered in the Emergency Department. See MAR. Independent interpretation of the following test(s) in the Emergency Department EKG: See my EKG interpretation above. Test considered but Not performed: Ultrasound no bilateral venous doppler. 12/04 01:06 Order name: Basic Metabolic Panel; Complete Time: 02:23 enrike 12/04 01:06 Order name: CBC with Diff; Complete Time: 02:23 enrike 12/04 01:06 Order name: LFT's; Complete Time: 02:23 enrike 12/04 01:06 Order name: Magnesium; Complete Time: 02:23 enrike 12/04 01:06 Order name: NT PRO-BNP; Complete Time: 02:23 enrike 12/04 01:06 Order name: PT-INR; Complete Time: 02:23 enrike 12/04 01:06 Order name: Troponin HS; Complete Time: 02:23 enrike 12/04 01:06 Order name: Blood Culture Adult (2) [facility] 12/04 01:06 Order name: Lactate w/ 2H reflex if indic.; Complete Time: 02:38 enrike 12/04 01:06 Order name: Urinalysis w/ reflexes; Complete Time: 02:38 enrike 12/04 01:06 Order name: SARS RAPID; Complete Time: 02:23 enrike 12/04 01:06 Order name: Flu enrike 12/04 01:47 Order name: Manual Differential; Complete Time: 02:23 EDMS 12/04 02:28 Order name: Alcohol Level; Complete Time: 04:07 enrike 12/04 03:15 Order name: Basic Metabolic Panel EDMS 12/04 03:15 Order name: Basic Metabolic Panel EDMS 12/04 03:15 Order name: Basic Metabolic Panel EDMS 12/04 03:15 Order name: Urinalysis w/ reflexes EDMS 12/04 03:16 Order name: Basic Metabolic Panel EDMS 12/04 03:16 Order name: CBC with Automated Diff EDMS / 03:16 Order name: CBC with Automated Diff EDMS 12/04 03:16 Order name: CBC with Automated Diff EDMS / 03:16 Order name: CBC with Automated Diff EDMS 07/ 03:16 Order name: Magnesium EDMS 07 03:16 Order name: Magnesium EDMS 07 03:16 Order name: Magnesium EDMS 07/ 03:16 Order name: Magnesium EDMS 07/ 03:16 Order name: Troponin High Sensitivity EDMS 07/ 03:16 Order name: Troponin High Sensitivity EDMS 07/ 03:16 Order name: Troponin High Sensitivity EDMS 07 03:16 Order name: Troponin High Sensitivity EDMS 07 03:22 Order name: NT PRO-BNP EDMS 07/ 01:06 Order name: XRAY Chest (1 view) [facility] 12/04 01:06 Order name: EKG; Complete Time: 01:07 enrike 12/04 03:15 Order name: Heart Healthy EDMS 12/04 01:06 Order name: Cardiac monitoring; Complete Time: 01: [facility] 12/04 01:06 Order name: EKG - Nurse/Tech; Complete Time: 01: [facility] 12/04 01:06 Order name: IV Saline Lock; Complete Time: 01: [facility] 12/04 01:06 Order name: Labs collected and sent; Complete Time: : [facility] 12/04 01:06 Order name: O2 Per Protocol; Complete Time: : [facility] 12/04 01:06 Order name: O2 Sat Monitoring; Complete Time: 01:20 [facility] EC:35 Rate is 107 beats/min. Rhythm is regular. QRS [place] is Normal. [place] interval is normal. [facility] QRS interval is normal. QT interval is normal. No Q waves. T waves are Normal. No ST changes noted. Clinical impression: Sinus tachycardia and No evidence of ischemia. Interpreted by me. Reviewed by me. Administered Medications: 01:09 Drug: NS 0.9% IV 1000 ml Route: IV; Rate: 1 bolus; Site: right antecubital; rv 02:30 Follow up: Response: No adverse reaction; IV Status: Completed infusion; IV Intake: rv 1000ml 01:10 Drug: morphine IVP or IV 2 mg Route: IVP; Infused Over: 4 mins; Site: right antecubital;rv 02:30 Follow up: Response: No adverse reaction; Pain is decreased rv 01:10 Drug: Ondansetron IVP 4 mg Route: IVP; Site: right antecubital; rv 02:30 Follow up: Response: No adverse reaction; Nausea is decreased rv 01:12 Drug: MethylPrednisoLONE IVP 125 mg Route: IVP; Site: right antecubital; rv 02:30 Follow up: Response: No adverse reaction rv 01:35 Drug: morphine IVP or IV 2 mg Route: IVP; Infused Over: 4 mins; Site: right antecubital;rv 02:30 Follow up: Response: No adverse reaction; Pain is decreased rv 01:45 Drug: Ativan IVP 1 mg Route: IVP; Site: right antecubital; rv 02:30 Follow up: Response: No adverse reaction rv 02:36 Drug: Aspirin PO Chewable Tablet 162 mg Route: PO; rv 03:34 Follow up: Response: No adverse reaction rv 02:36 Drug: Thiamine IV 100 mg Route: IV; Rate: per protocol; Site: right antecubital; rv 03:33 Follow up: IV Status: Completed infusion rv 02:36 Drug: Ativan IVP 1 mg Route: IVP; Site: right antecubital; rv 03:33 Follow up: Response: No adverse reaction; Marked relief of symptoms rv 03:02 Drug: Magnesium Sulfate IVPB 2 grams Route: IVPB; Infused Over: 2 hrs; Site: left rv antecubital; 04:02 Follow up: Response: No adverse reaction; IV Status: Completed infusion; IV Intake: 50mlrv 03:02 Drug: Banana Bag - (NS 0.9% IV 1000 ml, foLIC Acid IVPB 1 mg, Thiamine IV 100 mg, rv Multivitamin IV 1 amp) Route: IV; Rate: 125 ml/hr; Site: right antecubital; 03:33 Follow up: IV Status: Infusion continued upon admission rv 03:15 Drug: Rocephin IV 1 grams Route: IV; Rate: per protocol; Site: right antecubital; rv 03:34 Follow up: Response: No adverse reaction; IV Status: Completed infusion rv Disposition Summary: 12/04/22 02:41 Hospitalization Ordered Hospitalization Status: Inpatient Admission enrike Provider: Coby cSott cha [facility] enrike Condition: Fair enrike Problem: new enrike Symptoms: have improved enrike Bed/Room Type: Standard enrike Room Assignment: 224(12/04/22 05:46) mw Diagnosis - COPD/ Chronic obstructive pulmonary disease with (acute) exacerbation enrike - Abnormal levels of other serum enzymes - elevated troponin enrike - Hypomagnesemia enrike - Weakness enrike - Alcohol abuse enrike Forms: - Medication Reconciliation Form enrike - SBAR form enrike Signatures: Dispatcher [employer] EDMS Diamond Encarnacion RN RN mw Anderson, Corey, MD MD cha Vicente, Ronaldo, RN RN rv Corrections: (The following items were deleted from the chart) 03:21 03:15 NT PRO-BNP ordered. EDRI EDMS 05:46 02:41 enrike mw
[2022-12-04] MEDS ORDERED: FOLIC ACID 5 MG/ML VIAL ONE (03:04)
[2022-12-04] MEDS ORDERED: Magnesium Sulfate 2gm IVPB 2 G/50 ML BAG IV ONE (03:04)
[2022-12-04] MEDS ORDERED: MULTIVITAMINS 10 ML VIAL (INJ) IV ONE (03:04)
--- NOTE | 2022-12-04 03:06 | P.HP ---
Certification for Inpatient Patient admitted to: Inpatient With expected LOS: <2 Midnights Patient will require the following post-hospital care: None Practitioner: I am a practitioner with admitting privileges, knowledge of patient current condition, hospital course, and medical plan of care. Services: Services provided to patient in accordance with Admission requirements found in Title 42 Section 412.3 of the Code of Federal Regulations <Aissatou Garcias - Last Filed: 12/04/22 04:37> Patient History Date of Service: 12/04/22 Reason for admission: shortness of breath History of Present Illness: 61 yrs old Female with past medical history of COPD on home 02, HTN, HLD, Seizure disorder, alcohol use presents to emergency room with shortness of breath, She reports shortness of breath has been worse over the last 2 days, is worse laying flat, worse with exertion. She reports chronic cough, low grade fever, body aches for the last few days. She reports alcohol use 2 drinks twice daily 3-4 x per week. She denies alcohol use today. She reports chronic pain, she take oxycodone 5 mg po as needed for pain given by her pain management Dr. She denies chest pain, denies history of heart attack or cva. 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 She denies recent cardiac work up. Zaira use of anticoagulation. no reported edema. - Past Medical/Surgical History Diabetic: No -: Hypertension -: Dyslipidemia -: Seizure -: Chronic low back pain -: COPD -: Appendectomy -: Tonsillectomy -: Abdominal surgery -: Morphine pump placement Psychosocial/ Personal History: Patient lives at home with family. - Family History Mother -: Diabetes Father -: Cancer - Social History Alcohol use: No CD- Drugs: No Caffeine use: Yes <Aissatou Garcias - Last Filed: 12/04/22 04:37> Date of Service: 12/04/22 <Elfego Means - Last Filed: 12/04/22 12:25> Allergies No Known Drug Allergies Allergy (Verified 03/31/17 04:08) Unknown Home Medications: Albuterol Inhaler [Ventolin Inhaler*] 2 puff IH Q6H PRN #240 hfa.[email or web address] 09/12/21 Amlodipine [Norvasc*] 10 mg PO DAILY #30 tab 09/12/21 Budesonide/Glycopyr/Formoterol [Breztri Aerosphere Inhaler] 5.9 gm IH BID 30 Days #120 [email or web address] 09/12/21 Budesonide/Glycopyr/Formoterol [Breztri Aerosphere Inhaler] 10.7 gm IH BID 30 Days [email or web address] 09/12/21 predniSONE [Deltasone] 10 mg PO BID #20 tab 09/12/21 ALPRAZolam [Xanax] 0.5 mg PO DAILY PRN #20 tab 05/30/22 Albuterol Neb [Proventil 0.083% Neb Soln] 2.5 mg NEB [id number] #60 amp 05/30/22 Furosemide [Lasix] 20 mg PO DAILY #30 tab 05/30/22 Hydrocodone 10/APAP 325 [[place] [address]] 1 tab PO Q6H PRN #40 tab 05/30/22 Ipratropium Neb [Atrovent*] 0.5 mg NEB [id number] #60 amp 05/30/22 Lidocaine 4% Patch [Lidoderm 5% Patch*] 1 patch TD DAILY #30 patch 05/30/22 Losartan Potassium [Cozaar*] 50 mg PO BID #60 tablet 05/30/22 Potassium Chloride [K-Dur] 10 meq PO DAILY #30 tab 05/30/22 predniSONE [Deltasone] 20 mg PO BID #20 tab 05/30/22 Review of Systems General: As per HPI <Aissatou Garcias - Last Filed: 12/04/22 04:37> Physical Examination - Physical Exam General: Alert, In no apparent distress, Oriented x3 HEENT: Atraumatic, Normocephalic Neck: Supple, 2+ carotid pulse no bruit Respiratory: Expiratory wheezes, Inspiratory wheezes Cardiovascular: No edema, Normal S1 S2 Capillary refill: <2 Seconds Gastrointestinal: Normal bowel sounds Musculoskeletal: No clubbing, No swelling Integumentary: No rashes, No breakdown Neurological: Normal gait, Normal speech - Studies Laboratory Data (last 24 hrs) 12/04/22 01:00: PT 9.5, INR 0.86 12/04/22 01:00: WBC 5.20, Hgb 13.6, Hct 41.4, Plt Count 311 12/04/22 01:00: Sodium 139, Potassium 3.9, BUN 15, Creatinine 0.82, Glucose 90, Magnesium 1.5 L, Total Bilirubin 1.0, AST 98 H, ALT 63 H, Alkaline Phosphatase 75 <Aissatou Garcias - Last Filed: 12/04/22 04:37> - Studies Laboratory Data (last 24 hrs) 12/04/22 01:00: PT 9.5, INR 0.86 12/04/22 01:00: WBC 5.20, Hgb 13.6, Hct 41.4, Plt Count 311 12/04/22 01:00: Sodium 139, Potassium 3.9, BUN 15, Creatinine 0.82, Glucose 90, Magnesium 1.5 L, Total Bilirubin 1.0, AST 98 H, ALT 63 H, Alkaline Phosphatase 75 Microbiology Data (last 24 hrs): 12/04/22 01:15 Nasopharnyx Influenza Type A Antigen Screen - Final 12/04/22 01:15 Nasopharnyx Influenza Type B Antigen Screen - Final <Elfego Means - Last Filed: 12/04/22 12:25> Assessment and Plan - Plan Assessment/plan acute hypoxic respiratory failure secondary copd exac vs acute heart failure COPD Exacerbation Elevated BNP elevated troponin Chronic pain Alcohol use HTN unkn control HLD Seizure disorder DVT proplx Assessment/plan admit to med surg, tele acute hypoxic respiratory failure secondary copd exac vs acute heart failure -02 2L keep sats >92% COPD Exacerbation annamaria nebs, solumedrol, budesonide elevated tropon-trend trop, card consult, Lovenox 1mg/kg Elevated BNP -Lasix BID, daily wts, IO Chronic pain -resume home medications Alcohol use-prn ativan HTN unkn control -resume home meds HLD Seizure disorder Diet card Code DNR DVT Lovenox 1mg/kg Discharge Plan: Home Plan to discharge in: 48 Hours - Advance Directives Does patient have a Living Will: No Does patient have a Durable POA for Healthcare: No - Code Status/Comfort Care Code Status: Do Not Attempt Resuscitat Physician Review: Patient Assessed, Agree with Above Assessment and Plan Critical Care: Yes Time Spent Managing Pts Care (In Minutes): 55 <Aissatou Garcias - Last Filed: 12/04/22 04:37> Physician Review: Patient Assessed, Agree with Above Assessment and Plan <Elfego Means - Last Filed: 12/04/22 12:25>
[2022-12-04] MEDS ORDERED: ALBUTEROL 2.5 MG/3 ML NEB SOL NEB PRN (03:09)
[2022-12-04] MEDS ORDERED: ACETAMINOPHEN 500 MG TAB PO PRN (03:09)
[2022-12-04] MEDS ORDERED: FUROSEMIDE 40 MG/4 ML VIAL IV SCH (03:17)
[2022-12-04] MEDS ORDERED: NA CHLORIDE 0.9% 100 ML ONE (03:20)
[2022-12-04] MEDS ORDERED: CEFTRIAXONE 1000 MG/VIAL ONE (03:20)
[2022-12-04] MEDS ORDERED: LORazepam 2 MG/ML VIAL IV PRN (03:40)
[2022-12-04] MEDS ORDERED: OXYCODONE HCL 5 MG TAB PO PRN (03:41)
[2022-12-04] MEDS ORDERED: ENOXAPARIN 100 MG/ML SYR SQ SCH (04:50)
[2022-12-04] MEDS ORDERED: ENOXAPARIN 80 MG/0.8 ML SQ ONE (05:01)
[2022-12-04] MEDS ORDERED: POTASSIUM 25 MEQ EFFERV TAB PO ONE (08:00)
[2022-12-04] MEDS ORDERED: BUDESONIDE 0.5 MG/2 ML NEB NEB SCH ×2 (08:00)
[2022-12-04] MEDS: IPRATROPIUM BROM 0.5MG/2.5ML NEB SCH ×3 (08:00→20:05)
[2022-12-04] MEDS ORDERED: ENOXAPARIN 40 MG/0.4 ML SQ SCH (09:00)
[2022-12-04] MEDS ORDERED: METHYLPREDNISOLONE 125 MG INJ IV SCH (09:00)
[2022-12-04] MEDS: predniSONE 20 MG TAB PO SCH ×2 (09:11→22:52)
[2022-12-04] MEDS: SPIRONOLACTONE 25 MG TABLET PO SCH ×2 (09:12→22:51)
[2022-12-04] MEDS: DULERA 200/5 (MOMETASONE/FORMOTEROL) INHALER IH SCH ×2 (10:02→21:00)
--- NOTE | 2022-12-04 12:08 | P.CNS ---
Date of Consult: 12/04/22 Reason for Consult: Chronic pain COPD Chief Complaint: shortness of breath History of Present Illness: Patient is 61 years of age with a history of COPD active smoker has chronic back pain seeing a pain doctor she has been complaining of worsening pain for quite some time has COPD compliant with her therapy denies any fever chills cough or phlegm is unable to walk to my office twice requesting for appointment more pain medication Allergies No Known Drug Allergies Allergy (Verified 03/31/17 04:08) Unknown Home Medications: Albuterol Inhaler [Ventolin Inhaler*] 2 puff IH Q6H PRN #240 hfa.[email or web address] 09/12/21 Amlodipine [Norvasc*] 10 mg PO DAILY #30 tab 09/12/21 Budesonide/Glycopyr/Formoterol [Breztri Aerosphere Inhaler] 5.9 gm IH BID 30 Days #120 [email or web address] 09/12/21 Budesonide/Glycopyr/Formoterol [Breztri Aerosphere Inhaler] 10.7 gm IH BID 30 Days [email or web address] 09/12/21 predniSONE [Deltasone] 10 mg PO BID #20 tab 09/12/21 ALPRAZolam [Xanax] 0.5 mg PO DAILY PRN #20 tab 05/30/22 Albuterol Neb [Proventil 0.083% Neb Soln] 2.5 mg NEB [id number] #60 amp 05/30/22 Furosemide [Lasix] 20 mg PO DAILY #30 tab 05/30/22 Hydrocodone 10/APAP 325 [[place] 10/325] 1 tab PO Q6H PRN #40 tab 05/30/22 Ipratropium Neb [Atrovent*] 0.5 mg NEB [id number] #60 amp 05/30/22 Lidocaine 4% Patch [Lidoderm 5% Patch*] 1 patch TD DAILY #30 patch 05/30/22 Losartan Potassium [Cozaar*] 50 mg PO BID #60 tablet 05/30/22 Potassium Chloride [K-Dur] 10 meq PO DAILY #30 tab 05/30/22 predniSONE [Deltasone] 20 mg PO BID #20 tab 05/30/22 - Past Medical/Surgical History Diabetic: No -: Hypertension -: Dyslipidemia -: Seizure -: Chronic low back pain -: COPD -: Appendectomy -: Tonsillectomy -: Abdominal surgery -: Morphine pump placement Psychosocial/ Personal History: Patient lives at home with family. - Family History Mother Medical History: Diabetes Father Medical History: Cancer - Social History Smoking Status: Unknown if ever smoked Alcohol use: No CD- Drugs: No Caffeine use: Yes Place of Residence: Home Review of Systems General: Weakness Respiratory: Shortness of Breath Musculoskeletal: Back Pain Physical Examination Temp Pulse Resp BP Pulse Ox 96.8 F 74 18 183/92 H 93 12/04/22 08:00 12/04/22 09:12 12/04/22 10:11 12/04/22 09:12 12/04/22 10:11 General: Alert, In no apparent distress, Oriented x3 Neck: Supple Respiratory: Clear to auscultation bilaterally, Diminished, Friction rub Cardiovascular: Regular rate/rhythm, Normal S1 S2 Gastrointestinal: Normal bowel sounds, Soft and benign, Non-distended Laboratory Data (last 24 hrs) 12/04/22 01:00: PT 9.5, INR 0.86 12/04/22 01:00: WBC 5.20, Hgb 13.6, Hct 41.4, Plt Count 311 12/04/22 01:00: Sodium 139, Potassium 3.9, BUN 15, Creatinine 0.82, Glucose 90, Magnesium 1.5 L, Total Bilirubin 1.0, AST 98 H, ALT 63 H, Alkaline Phosphatase 75 - Problems (1) COPD (chronic obstructive pulmonary disease) Current Visit: Yes Status: Acute Plan: Patient is 61 years of age well-known to me has a history of COPD used to smoke and drink complaining of back pain the pain doctor has been prescribed narcotics into my office twice complaining of pain seeing more pain medications compliant with her breast tree inhaler at home patient's troponin is borderline elevated most likely from demand ischemia her smoking patient denies any chest pain EKG report from emergency room physician Rate is 107 beats/min. Rhythm is regular. QRS [place] is Normal. [place] interval is normal. enrike QRS interval is normal. QT interval is normal. No Q waves. T waves are Normal. No ST changes noted. Clinical impression: Sinus tachycardia and No evidence of ischemia. Qualifiers: COPD type: unspecified COPD Qualified Code(s): J44.9 - Chronic obstructive pulmonary disease, unspecified
[2022-12-04] MEDS ORDERED: LOSARTAN POTASSIUM 50 MG TABLET PO SCH (12:30)
[2022-12-04] MEDS: AMLODIPINE 10 MG TAB PO SCH (12:49)
[2022-12-04] MEDS: HYDROCODONE/APAP 10/325 TAB PO PRN ×2 (12:50→18:28)
[2022-12-04] MEDS: ONDANSETRON 4 MG/2 ML VIAL IV PRN (12:53)
--- NOTE | 2022-12-04 14:25 | RAD REPORT ---
EXAM DESCRIPTION: RAD - Chest Single View - 12/04/2022 1:43 am CLINICAL HISTORY: 61 years Female, COPD;Congestion;Cough COMPARISON: Reports from prior chest x-rays, most recently dated 11/08/2022. Images were not available at time of dictation for direct comparison. Most recent image available for comparison is from 05/29 FINDINGS: Single portable AP upright view of the chest. Trachea is midline. Normal size of the cardi ac silhouette. There are some hazy opacities bilaterally. Small pleural effusions. No pneumothorax. N o acute osseous abnormality. IMPRESSION: Bibasilar hazy opacities which could be due to infection or atelectasis. Small pleural e ffusions. Electronically signed by: Loni Thomas MD 12/04/2022 1:59 AM CDT Due to temporary technical issues with the PACS/Fluency reporting system, reports are being signed by the in house radiologist without review as a courtesy to ensure prompt reporting. The interpreting r adiologist is fully responsible for the content of the report.
[2022-12-04] MEDS: LOSARTAN POTASSIUM 50 MG TABLET PO SCH (18:28)
--- NOTE | 2022-12-04 19:29 | EKG ---
Test Date: 2022-12-04 Test Time: 00:58:47 Technical Writing Lead/Mgr: RV MEASUREMENT RESULTS: Intervals: Rate: 107 MA: 170 QRSD: 126 QT: 372 QTc: 496 [place]: P: 32 MA: 170 QRS: 65 T: 255 INTERPRETIVE STATEMENTS: Sinus tachycardia Left bundle branch block Abnormal ECG Compared to ECG 11/08/2022 16:25:13 Left bundle-branch block now present Sinus rhythm no longer present Myocardial infarct finding no longer present Electronically Signed On 12-04-22 19:28:26 CDT by Wesly Duvall
[2022-12-04] MEDS ORDERED: BUDESONIDE 0.5 MG/2 ML NEB ONE (19:52)
[2022-12-04] MEDS ORDERED: ENOXAPARIN 80 MG/0.8 ML SQ SCH (21:00)
[2022-12-04] MEDS: ZOLPIDEM TARTRATE 5 MG TABLET PO PRN (22:52)
[2022-12-05] MEDS: IPRATROPIUM BROM 0.5MG/2.5ML NEB SCH ×5 (01:15→19:35)
[2022-12-05] MEDS: HYDROCODONE/APAP 10/325 TAB PO PRN ×5 (01:18→23:25)
[2022-12-05 03:43] LABS: Absolute Lymphocytes (CBC) 0.5 K/uL (0.7-4.9); Hematocrit 37.9 % (36.0-45.0); Lymphocytes % 10.7 % (15.3-44.8); MCV 101.6 fL (80-100); MPV 7.5 fL (7.6-11.3); RBC Red Blood Cell Count 3.73 M/uL (3.86-4.86)
[2022-12-05 04:16] LABS: Magnesium 1.8 mg/dL (1.6-2.4); Potassium 4.6 mEq/L (3.5-5.1); Troponin High Sensitivity 25.3 pg/mL (<58.9)
[2022-12-05 07:45] LABS: Albumin 3.4 g/dL (3.4-5.0); Bilirubin Total 0.6 mg/dL (0.2-1.0); Potassium 4.7 mEq/L (3.5-5.1)
[2022-12-05] MEDS: ONDANSETRON 4 MG/2 ML VIAL IV PRN ×3 (08:28→22:30)
[2022-12-05] MEDS ORDERED: MAGNESIUM SULFATE 1 gm IVPB 1 GM/100 ML BAG IV ONE (09:00)
[2022-12-05] MEDS: LOSARTAN POTASSIUM 50 MG TABLET PO SCH (09:15)
[2022-12-05] MEDS: METOPROLOL XL 25 MG TAB PO SCH (09:15)
[2022-12-05] MEDS: AMLODIPINE 10 MG TAB PO SCH (09:15)
[2022-12-05] MEDS: SPIRONOLACTONE 25 MG TABLET PO SCH ×2 (09:15→20:12)
[2022-12-05] MEDS: DULERA 200/5 (MOMETASONE/FORMOTEROL) INHALER IH SCH ×2 (09:15→20:13)
[2022-12-05] MEDS: predniSONE 20 MG TAB PO SCH ×2 (09:15→20:12)
[2022-12-05] MEDS: ENOXAPARIN 40 MG/0.4 ML SQ SCH (09:16)
--- NOTE | 2022-12-05 12:47 | RAD REPORT ---
EXAM DESCRIPTION: RAD - Abdomen 1 View (KUB) - 12/05/2022 12:35 pm CLINICAL HISTORY: vomiting COMPARISON: Abdomen 1 View (KUB) dated 08/03/2019 TECHNIQUE: Single AP view of the abdomen. FINDINGS: Nonobstructive bowel gas pattern. No air-fluid levels, free air, or pneumatosis. No suspic ious calcifications. No significant bony abnormality. IMPRESSION: Negative two view abdomen examination.
--- NOTE | 2022-12-05 14:28 | P.PN ---
Subjective Date of Service: 12/05/22 Chief Complaint: shortness of breath This morning on rounds, she reported significant nausea/vomiting. She states that her breathing and cough have improved. She denies any chest pain or palpitations. Review of Systems 10-point ROS is otherwise unremarkable Gastrointestinal: Nausea, Vomiting Physical Examination - Vital Signs Temperature: 97.8 F Blood Pressure: 178/87 Pulse: 94 Respirations: 20 Pulse Ox (%): 94 - Physical Exam General: Alert, In no apparent distress, Oriented x3 HEENT: Atraumatic, Mucous membr. moist/pink, Sclerae nonicteric Neck: JVD not distended Respiratory: Clear to auscultation bilaterally, Normal air movement Cardiovascular: No edema, Regular rate/rhythm, Normal S1 S2, No gallops, No rubs, No murmurs Gastrointestinal: Normal bowel sounds, Soft and benign, Non-distended, No tenderness, No rebound, No guarding Musculoskeletal: No clubbing Integumentary: No rashes Neurological: Normal speech, Normal affect Assessment And Plan - Plan # Sepsis suspect secondary to Community-Acquired Pneumonia - POA She met SIRS criteria based on HR > 90 bpm and RR > 20 breaths/min, and the suspected source is pulmonary. - Chest x-ray = "bibasilar hazy opacities which could be due to infection or atelectasis. Small pleural effusions." - Sepsis order set was initiated - Initial Lactate was 1.9 - Blood cultures drawn - Broad spectrum antibiotics started: Ceftriaxone + Doxycycline - In regards to fluids: - 30 mL/kg of IV fluids was not administered given SBP > 90, MAP > 65, lactic acid < 4 # Acute Chronic Obstructive Pulmonary Disease Exacerbation No obvious trigger at this time. No evidence of infection. - Evaluation thus far: - Chest x-ray = "bibasilar hazy opacities which could be due to infection or atelectasis. Small pleural effusions." - Plan: - Pulmonology consulted - recommendations appreciated - Bronchodilators and steroids per Pulm - Consulted Respiratory Therapy - Supplemental oxygen to maintain SpO2 > 92% - Assess inhaler technique one improved from COPD exacerbation # Hypertensive Urgency suspect due to Opioid Withdrawal Syndrome # Chronic Pain Syndrome - Continue amlodipine + PRN anti-hypertensives - Spoke with house principal, who will contact pharmacy to look for a Clinical Opiate Withdrawal Scale Protocol (COWS) # Type II Non-ST Segment Elevation Myocardial Infarction (Demand Ischemia) due to above - Evaluation thus far: - EKG: without STEMI criteria, trend - Serial troponin: 75.5 -> 78.2 -> 39.5 -> 25.3 - Management plan: - Consult Cardiology and spoke with Dr. Castanon - recommendations appreciated - Recommended outpatient evaluation - Continue losartan, metoprolol - Start daily baby aspirin # Alcohol Use Disorder - No evidence of alcohol withdrawal syndrome at this time - Continue thiamine, folic acid - Started chlordiazepoxide Elfego Means M.D.
[2022-12-05] MEDS: chlordiazePOXIDE HCl 25 MG CAP PO SCH ×3 (15:39→23:25)
[2022-12-05] MEDS: ASPIRIN 81 MG CHEWABLE TABLET PO SCH (15:39)
[2022-12-05] MEDS: FOLIC ACID 1 MG TABLET PO SCH (15:40)
[2022-12-05] MEDS: DOXYCYCLINE 100 MG in NA CHLORIDE 0.9% 100 ML IVPB SCH ×2 (15:40→20:12)
[2022-12-05] MEDS: THIAMINE 200 MG/2 ML INJ IVP SCH (15:40)
[2022-12-05] MEDS: CEFTRIAXONE 1,000 MG in NA CHLORIDE 0.9% 50 ML IVPB SCH (15:40)
--- NOTE | 2022-12-05 16:01 | CON ---
Date of Consultation: 12/05/2022 Reason For Consultation: Mildly elevated troponin. History Of Present Illness: This is a 61-year-old female, who has significant COPD, active smoker, o n home O2. Has hypertension, dyslipidemia, seizure disorder, alcohol dependence and opioid dependenc e, presented to the emergency room with shortness of breath with her main problem is generalized chloe re body aches, nausea and vomiting that is nonstop. She was taken large doses of oxycodone and she w as cut down on it recently and the symptoms started. Past Medical History: As outlined above in the HPI. Medications: Refer to reconciliation sheet for detailed list. Allergies: NO KNOWN DRUG ALLERGIES. Family History: No premature coronary artery disease or cancer. Social History: She is an active smoker and she drinks alcohol on a regular basis, heavy, and she is on pain management for chronic pain. Review of Systems: All systems reviewed and they were negative except what mentioned in HPI. Physical Examination: Vital Signs: Reviewed. Head and Neck: Pupils are equal, reactive to light. Intact eye movements. No cervical lymphadenopa thy. Neck is supple. Thyroid is not enlarged. Lungs: Decreased breathing sounds with scattered wheezing and slight increased inspiratory efforts. Heart: Irregular. No extra sounds. Abdomen: Soft. Bowel sounds positive. No rigidity or rebound. Extremities: No clubbing or cyanosis. Intact pulses. Skin: No rash. Neurologic: Alert, awake. No acute focal deficits appreciated. Investigations: Troponin was 78 and then went down to 25. Assessment And Recommendations: 1.Elevated troponin. This is due to demand ischemia. I believe the patient is having active withdr awals, opiates withdrawal and alcohol withdrawal, which needs a close attention and monitoring. Sinc e the troponin is trended negative, I would recommend no further cardiac workup on her as an inpatien t. She definitely needs her heart evaluated; however, the active issue at the moment is the withdraw al, opiates withdrawal, and alcohol withdrawal that needs to be addressed and once the patient is sta ble, then we will plan for doing a stress test, which can be done as an outpatient. 2.Hypertension. Blood pressure is elevated and in part, I think it is due to the withdrawal symptom s. I discussed the case with the primary hospitalist and I will monitor the patient. /REBECCA Voice ID: [id number] Report ID: [id number]
[2022-12-06] MEDS: IPRATROPIUM BROM 0.5MG/2.5ML NEB SCH ×4 (01:30→19:30)
[2022-12-06 03:31] VITALS: BMI 25.9
[2022-12-06] MEDS: HYDROCODONE/APAP 10/325 TAB PO PRN ×4 (05:29→23:59)
[2022-12-06] MEDS: chlordiazePOXIDE HCl 25 MG CAP PO SCH ×3 (05:30→17:58)
[2022-12-06 06:06] LABS: Magnesium 1.9 mg/dL (1.6-2.4); Potassium 4.2 mEq/L (3.5-5.1)
[2022-12-06 07:23] LABS: Phosphorus 1.7 mg/dL (2.5-4.9)
[2022-12-06] MEDS ORDERED: NA CHLORIDE 0.9% 1,000 ML IV SCH (08:00)
[2022-12-06] MEDS ORDERED: DOXYCYCLINE HYCLATE 100MG INJ ONE (09:42)
[2022-12-06] MEDS: ASPIRIN 81 MG CHEWABLE TABLET PO SCH (09:46)
[2022-12-06] MEDS: CEFTRIAXONE 1,000 MG in NA CHLORIDE 0.9% 50 ML IVPB SCH (09:46)
[2022-12-06] MEDS: DOXYCYCLINE 100 MG in NA CHLORIDE 0.9% 100 ML IVPB SCH ×2 (09:46→20:27)
[2022-12-06] MEDS: FOLIC ACID 1 MG TABLET PO SCH (09:46)
[2022-12-06] MEDS: predniSONE 20 MG TAB PO SCH ×2 (09:47→20:29)
[2022-12-06] MEDS: METOPROLOL XL 25 MG TAB PO SCH (09:47)
[2022-12-06] MEDS: SPIRONOLACTONE 25 MG TABLET PO SCH (09:47)
[2022-12-06] MEDS: LOSARTAN POTASSIUM 50 MG TABLET PO SCH (09:47)
[2022-12-06] MEDS: AMLODIPINE 10 MG TAB PO SCH (09:47)
[2022-12-06] MEDS: POTASS/SODIUM PHOSPHATE 1 PKT POWD.PACK PO SCH ×2 (09:47→11:49)
[2022-12-06] MEDS: ENOXAPARIN 40 MG/0.4 ML SQ SCH (09:47)
[2022-12-06] MEDS: THIAMINE 200 MG/2 ML INJ IVP SCH (09:47)
[2022-12-06] MEDS: DULERA 200/5 (MOMETASONE/FORMOTEROL) INHALER IH SCH ×2 (09:48→20:28)
[2022-12-06] MEDS: ONDANSETRON 4 MG/2 ML VIAL IV PRN (09:48)
[2022-12-06] MEDS ORDERED: NA CHLORIDE 0.9% 100 ML ONE (09:48)
[2022-12-06] MEDS ORDERED: ALBUTEROL 2.5 MG/3 ML NEB SOL NEB PRN (11:00)
[2022-12-06 14:31] LABS: Phosphorus 1.8 mg/dL (2.5-4.9); Potassium 4.8 mEq/L (3.5-5.1)
--- NOTE | 2022-12-06 15:32 | P.PN ---
Subjective Date of Service: 12/06/22 Chief Complaint: shortness of breath No acute events overnight. She reports that her breathing is improved, but she continues to have nausea. Her creatinine level is increased this morning. Discontinued spironolactone as this is a new medication. She denies any chest pain or palpitations. Review of Systems 10-point ROS is otherwise unremarkable Gastrointestinal: Nausea Physical Examination - Vital Signs Temperature: 97.5 F Blood Pressure: 175/82 Pulse: 75 Respirations: 20 Pulse Ox (%): 99 Assessment And Plan - Plan - Physical Exam General: Alert, In no apparent distress, Oriented x3 HEENT: Atraumatic, Mucous membr. moist/pink, Sclerae nonicteric Respiratory: Faint, scattered rhonchi Cardiovascular: No edema, Regular rate/rhythm, No murmurs Gastrointestinal: Normal bowel sounds, Soft, Non-distended, No tenderness Musculoskeletal: No clubbing Integumentary: No rashes Neurological: Normal speech, Normal affect # Sepsis suspect secondary to Community-Acquired Pneumonia - POA She met SIRS criteria based on HR > 90 bpm and RR > 20 breaths/min, and the suspected source is pulmonary. - Chest x-ray = "bibasilar hazy opacities which could be due to infection or a telectasis. Small pleural effusions." - Sepsis order set was initiated - Initial Lactate was 1.9 - Blood cultures drawn - Broad spectrum antibiotics started: Ceftriaxone + Doxycycline - In regards to fluids: - 30 mL/kg of IV fluids was not administered given SBP > 90, MAP > 65, lactic acid < 4 # Acute Chronic Obstructive Pulmonary Disease Exacerbation No obvious trigger at this time. - Evaluation thus far: - Chest x-ray = "bibasilar hazy opacities which could be due to infection or atelectasis. Small pleural effusions." - Plan: - Pulmonology consulted - recommendations appreciated - Bronchodilators and steroids per Pulm - Consulted Respiratory Therapy - Supplemental oxygen to maintain SpO2 > 92% - Assess inhaler technique one improved from COPD exacerbation # Hypertensive Urgency suspect due to Opioid Withdrawal Syndrome # Chronic Pain Syndrome - Continue amlodipine + PRN anti-hypertensives - Can utilize PRN clonidine for opioid withdrawal if blood pressure allows # Type II Non-ST Segment Elevation Myocardial Infarction (Demand Ischemia) due to above - Evaluation thus far: - EKG: without STEMI criteria, trend - Serial troponin: 75.5 -> 78.2 -> 39.5 -> 25.3 - Management plan: - Consult Cardiology and spoke with Dr. Castanon - recommendations appreciated - Recommended outpatient evaluation - Continue losartan, metoprolol - Start daily baby aspirin # Alcohol Use Disorder - No evidence of alcohol withdrawal syndrome at this time - Continue thiamine, folic acid - Started chlordiazepoxide Elfego Means M.D.
[2022-12-06 23:37] VITALS: O2SAT 93
[2022-12-07] MEDS: chlordiazePOXIDE HCl 25 MG CAP PO SCH (00:17)
[2022-12-07] MEDS: ZOLPIDEM TARTRATE 5 MG TABLET PO PRN (00:36)
[2022-12-07] MEDS: IPRATROPIUM BROM 0.5MG/2.5ML NEB SCH (02:00)
[2022-12-07 03:22] LABS: Magnesium 1.9 mg/dL (1.6-2.4); Potassium 4.1 mEq/L (3.5-5.1)
[2022-12-07] MEDS: HYDROCODONE/APAP 10/325 TAB PO PRN (05:57)
[2022-12-07 06:23] LABS: Phosphorus 1.9 mg/dL (2.5-4.9)
[2022-12-07 06:37] VITALS: BP 137/94; TEMP 97.6
--- NOTE | 2022-12-07 07:06 | P.DS ---
Admission Date: 12/04/22 Discharge Date: 12/07/22 Disposition: ROUTINE DISCHARGE Reason for Admission: shortness of breath Consultations: 1. Pulmonology Hospital Course: DIAGNOSES: # Sepsis suspect secondary to Community-Acquired Pneumonia - POA - improved # Acute Chronic Obstructive Pulmonary Disease Exacerbation - improved # Hypertensive Urgency suspect due to Opioid Withdrawal Syndrome - improved # KDIGO Stage I Acute Kidney Injury - improved # Chronic Pain Syndrome # Type II Non-ST Segment Elevation Myocardial Infarction (Demand Ischemia) due to above # Alcohol Use Disorder HOSPITAL COURSE: Ms. Heaven Bhatia is a 61 year old female with a past medical history significant for chronic obstructive pulmonary disease, hypertension, chronic pain syndrome, and alcohol use disorder who was admitted to the [facility] on 12/04/2022 for shortness of breath. She was admitted to the Medicine service. Upon further evaluation, her chest x- ray revealed, "bibasilar hazy opacities which could be due to infection or atelectasis. Small pleural effusions." She was treated with bronchodilators, steroids, and antibiotics. Over the course of her hospitalization, her symptoms improved significantly. Pulmonology was consulted and she was evaluated by Dr. Banks. He has cleared her for discharge with prednisone and antibiotics. Incidentally, during her evaluation, she was found to have a mildly elevated troponin level. Cardiology was consulted and she was evaluated by Dr. Castanon. It was felt that her troponin leak was secondary to demand ischemia due to her COPD exacerbation and hypertensive urgency. He has cleared her for discharge with outpatient follow-up from a cardiac standpoint. This morning, she stated that she felt very well and would like to be discharged home On 12/07/2022, she was seen on morning rounds and deemed medically stable for discharge. She was discharged with instructions to schedule follow-up appointments with her PCP, with Cardiology (Dr. Castanon), with Pulmonology (Dr. Banks), and with Pain Medicine (Dr. Higgins). She was provided prescriptions for cefdinir, doxycycline, and prednisone. She was given the opportunity to ask questions and reported no further questions. Furthermore, all questions were answered to the best of my ability. A copy of this discharge summary will be sent to the above providers to f acilitate continuity of care. Today, I personally spent 25 minutes on her case, of which greater than 50% of the time was spent in patient education, counseling, and coordination of care as described above. - Physical Exam General: Alert, In no apparent distress, Oriented x3 HEENT: Atraumatic, Mucous membr. moist/pink, Sclerae nonicteric Respiratory: Clear to ausculation bilaterally Cardiovascular: No edema, Regular rate/rhythm, No murmurs Gastrointestinal: Soft, Non-distended, No tenderness Musculoskeletal: No clubbing Integumentary: No rashes Neurological: Normal speech, Normal affect Vital Signs/Physical Exam: Temp Pulse Resp BP Pulse Ox 97.6 F 90 16 137/94 H 96 12/07/22 04:00 12/07/22 04:00 12/07/22 05:57 12/07/22 04:00 12/07/22 05:57 Laboratory Data at Discharge: WBC 4.30 thou/uL (4.3-10.9) 12/05/22 02:29 Hgb 12.8 g/dL (12.0-15.0) 12/05/22 02:29 Hct 37.9 % (36.0-45.0) 12/05/22 02:29 Plt Count 278 thou/uL (152-406) 12/05/22 02:29 PT 9.5 SECONDS (9.5-12.5) 12/04/22 01:00 INR 0.86 12/04/22 01:00 Sodium 132 mEq/L (136-145) L 12/07/22 02:26 Potassium 4.1 mEq/L (3.5-5.1) D 12/07/22 02:26 BUN 24 mg/dL (7-18) H 12/07/22 02:26 Creatinine 1.17 mg/dL (0.55-1.02) H 12/07/22 02:26 Glucose 155 mg/dL (74-106) H 12/07/22 02:26 Phosphorus 1.9 mg/dL (2.5-4.9) L 12/07/22 02:26 Magnesium 1.9 mg/dL (1.6-2.4) 12/07/22 02:26 Total Bilirubin 0.6 mg/dL (0.2-1.0) 12/05/22 07:21 AST 37 U/L (15-37) 12/05/22 07:21 ALT 45 U/L (13-56) 12/05/22 07:21 Alkaline Phosphatase 65 U/L (45-117) 12/05/22 07:21 Home Medications: Albuterol Inhaler [Ventolin Inhaler*] 2 puff IH Q6H PRN 12/04/22 Duloxetine HCl [Cymbalta] 60 mg PO DAILY 12/04/22 Levothyroxine [Synthroid*] 88 mcg PO DAILY 12/04/22 Losartan Potassium 100 mg PO DAILY 12/04/22 Metoprolol Succinate 25 mg PO DAILY 12/04/22 Oxycodone HCl 5 mg PO BID 12/04/22 Pantoprazole [Protonix Tab*] 40 mg PO DAILY 12/04/22 Pravastatin Sodium 20 mg PO DAILY 12/04/22 Trazodone HCl 100 mg PO BEDTIME 12/04/22 Amlodipine [Norvasc*] 10 mg PO DAILY tab 12/07/22 Aspirin Chewable [Aspirin Chewable*] 81 mg PO DAILY tab.chew 12/07/22 Cefdinir [Cefdinir*] 300 mg PO BID 7 Days #14 cap 12/07/22 Doxycycline Hyclate 100 mg PO BID 7 Days #14 tab 12/07/22 predniSONE [Prednisone*] 20 mg PO BID 5 Days #10 tab 12/07/22 New Medications: Cefdinir [Cefdinir*] 300 mg PO BID 7 Days #14 cap Doxycycline Hyclate 100 mg PO BID 7 Days #14 tab predniSONE [Prednisone*] 20 mg PO BID 5 Days #10 tab Physician Discharge Instructions: 1. Please call and schedule a follow-up appointment with your PCP in 3-5 days 2. Please call and schedule a follow-up appointment with Pulmonology (Dr. Banks) in 3-5 days - Please have him repeat your chest x-ray in 3-4 weeks to make sure your pneumonia has fully healed 3. Please call and schedule a follow-up appointment with Nephrology (Dr. Lucero) in 5-7 days - You had a mild abnormality in your kidney function, which has improved compared to yesterday. Please have him re-evaluate your kidney function. 4. Please attend your follow-up appointment with Pain Medicine (Dr. Higgins) today Diet: AHA Activity: Ad matthias Followup: Maicol Banks MD [ACTIVE - CAN ADMIT] - Mendoza Lucero DO [ACTIVE - CAN ADMIT] - Jose A Higgins DO [ACTIVE - CAN ADMIT] - Time spent managing pt's care (in minutes): 25
[2022-12-07] MEDS ORDERED: POTASS/SODIUM PHOSPHATE 1 PKT POWD.PACK PO ONE (07:30)
== END 2022-12-07 08:20 | disposition home or self-care (01) | DRG 871 ==
LOC: ER 00:40 → ERHOLD 03:09 → 2ND 05:48
PROVIDERS: ADMIT Hospitalist; ATTEND Internal Medicine
DX: A41.9 Sepsis, unspecified organism (principal); I21.A1 Myocardial infarction type 2; J18.9 Pneumonia, unspecified organism; J96.01 Acute respiratory failure with hypoxia; J44.1 Chronic obstructive pulmonary disease with (acute) exacerbation; J44.0 Chronic obstructive pulmonary disease with (acute) lower respiratory infection; F11.23 Opioid dependence with withdrawal; N17.9 Acute kidney failure, unspecified; F10.20 Alcohol dependence, uncomplicated; E78.5 Hyperlipidemia, unspecified; I16.0 Hypertensive urgency; M54.50 Low back pain, unspecified; G89.4 Chronic pain syndrome; E83.42 Hypomagnesemia; I10 Essential (primary) hypertension; G40.909 Epilepsy, unspecified, not intractable, without status epilepticus; F17.200 Nicotine dependence, unspecified, uncomplicated; R77.8 Other specified abnormalities of plasma proteins; Z66 Do not resuscitate; Z90.49 Acquired absence of other specified parts of digestive tract; Z99.81 Dependence on supplemental oxygen; Z79.82 Long term (current) use of aspirin; Z79.52 Long term (current) use of systemic steroids; Z79.899 Other long term (current) drug therapy; Z20.822 Contact with and (suspected) exposure to COVID-19
CPT/HCPCS: 36415; 71045; 74018; 80048; 80053; 80076; 81001; 82077; 83605; 83735; 83880; 84100; 84484; 85025; 85610; 87040; 87804; 87811; 93005; 94640; 94760; 97110; 97116; 97162; 97530; 99285; J0696; J1650; J2270; J2405; J2930; J3411; J3475; J3535; J7030; J7512; J7613; J7626; J7644

== ENCOUNTER 2023-01-06 14:25 | Emergency (ER) | payer OTHER ==
--- OUTSIDE RECORDS SUMMARY | 2023-01-06 14:30 | XMS REPORT | Continuity of Care Document ---
:1960 Author Organization [facility] t Address [address] [place] [address] [address] [place] [address] Care Team Providers Name Role Phone Sharpless Primary Care Physician Hero Tamez Attending Clinician Unavailable Loren Lynn Attending Clinician Unavailable Bailey Salomon Attending Clinician Unavailable CALLUM CERRATO Attending Clinician Unavailable CHRISTELLE GARDNER Admitting Clinician Unavailable Payers Payer Name Policy Type Policy Number Effective Date Expiration Date S ource MEDICARE MB [id number] 2008 [facility] NOVITAS 00:00:00 [facility] C1 [id number] [facility] Problems Condition Condition Condition Status Onset Resolution Last Treating Co mments Source Name Details Category Date Date Treatment Clinician Date Alcohol Alcohol Disease Recurre [facility] intox[facility] intoxicati [facility]ce 08-29 Randee kes on on 00:00: Medical 00 [place] Suicidal Suicidal Disease Active [facility] 00 [place] Fall, Fall, Disease Active [facility] initial initial 08-29 [facility] encounter encounter 00:00: Medi yoan 00 Center Allergic Allergic Problem Commo n rhinitis rhinitis [facility] Hypothyroi Hypothyroi Problem C ommon dism dism [facility] Constipati Constipati Problem C ommon on on [facility] Hyperlipid Hyperlipid Problem C ommon emia emia [facility] [id number] Depression Problem Com mon with Spirit anxiety [facility] Hypotensio Hypotensio Problem C ommon n n Spirit [facility] Obesity Mild Problem Common obesity [facility] Seizure Seizures Problem Common [facility] Localized Localized Problem Com mon swelling, swelling, Spir it mass and mass and - CHI lump, neck lump, neck [facility] [id number] Primary Problem Common insomnia [facility] [id number] Localized Problem Comm on osteoporos Spirit is, - [facility]I unspecifie [facility] pathologic Medica l al Center fracture presence [id number] 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 [facility] Nicotine Nicotine Problem Commo n dependence dependence Sp [facility] Vitamin D Vitamin D Problem Com mon deficiency deficiency [facility] Nausea and Intractabl Problem C ommon vomiting e vomiting Sp[facility] it with [facility] type Center [id number] Gastroesop Problem Co mmon hageal Spirit reflux - [facility] disease [facility] esophagiti Medica l s Center [id number] Urinary Problem Commo n frequency [facility] Essential Benign Problem Common hypertensi essential Spi rit on HTN [facility] [id number] Vomiting Problem [place] [id number] without Spirit nausea, - CHI intractabi [facility] vomiting Medical not Center specified, unspecifie d vomiting type Tobacco Cigarette Problem Commo n user nicotine Spirit dependence - [facility] without complicati [facility] Epigastric Epigastric Problem C ommon pain pain [facility] Abnormal Abnormal Problem Commo n weight weight Spirit loss loss [facility] Allergies, Adverse Reactions, Alerts Allergy Allergy Status Severity Reaction(s) Onset Inactive Treating Comm ents Source Name Type Date Date Clinician NO KNOWN Allergy Active [facility] morphine morphine Active nausea Common [facility] Social History Social Habit Start Date Stop Date Quantity Comments Source History of Current Smoker [facility] - Tobacco Use [facility] Alcohol intake 2016-08-28 2016-08-28 Current drinker [facility] Farida Nathan 00:00:00 00:00:00 of [facility] (finding) Sex Ass[birth year] At [birth year] LIZBETH Martinez 00:00:00 00:00:00 [facility] Center Smoking Status Start Date Stop Date Source Current Smoker 2022-01-16 00:00:00 [facility] Medications Ordered Filled Start Stop Current Ordering Indication Dosage Frequency Signature Comments Components Source Medication Medication Date Date Medication? Clinician (SIG) Name Name Nystatin Nystatin 2020-06- No 1{appli BID Nystatin [id number] 204 02 cation_ 090958 UNIT/GM UNIT/GM 00:00: 00:00 to_affe UNIT/GM 00 :00 cted_ar ea} Triamcinolo Triamcinolo 2020-0 Yes Na Salomon 1 Common ne ne 5-08 applicatio Spirit Acetonide Acetonide 00:00: n to - C HI 00 affected [facility] Triamcinolo Triamcinolo 2020-0 No 1{appli [...] t ER ER 00:00: - CHI 00 [facility] Metoprolol Metoprolol 2020-0 No 1{table [...] on -16 [facility] 00:00: - [facility] 00 [facility] Xanax 0.5 Xanax 0.5 2019-1 No 1{table [...] 5,[address] michelle, 3-28 Units by [facility] vitamin D3, 14:35: mouth once Medical 5,000 unit 17 a week. Center Tab UNKNOWN Yes Blood [facility] 3- pressure [facility] 14:35: med does Medical 17 not know Center name nor dose . Levothyroxi Levothyroxi Yes Na Salomon 1 tablet Common ne Sodium ne Sodium on an Spir it empty - CHI stomach in [facility] Furosemide Furosemide Yes Na Salomno 1 tablet Common [facility] Cymbalta Cymbalta Yes Na Salomon 1 capsule Common [facility] Cozaar Cozaar Yes Na Salomon 1 tablet Comm on [facility] Pravastatin Pravastatin Yes Na Salomon 1 tablet Common Sodium Sodium [facility] Omeprazole Omeprazole Yes Na Salomon 1 capsule [facility] ProAir HFA ProAir HFA Yes Na Salomon 1 puff as Common needed [facility] Ambien Ambien Yes Na Salomon 1 tablet Comm on at bedtime [facility] as needed [facility] Phenytoin Phenytoin Yes Na Salomon not Co [...] 1 tablet Common HCl HCl at bedtime [facility] as needed [facility] Potassium Potassium Yes Na Salomon not Co mmon defined [facility] Dilantin Dilantin Yes Na Salomon 5 capsule Common [facility] Amitiza Amitiza Yes Na Salomon 1 capsule C ommon with food Spirit and water [facility] Phenytoin Phenytoin No Phenytoin Potassium Potassium No [...] FluAD 2019-02-13 Completed [facility] 11:33:00 - [facility] FluAD FluAD 2019-02-13 Completed [facility] 11:33:00 - [facility] FluAD FluAD 2019-02-13 Completed [facility] 11:33:00 - [facility] FluAD FluAD 2019-02-13 Completed [facility] 11:33:00 - [facility] FluAD FluAD 2019-02-13 Completed [facility] 11:33:00 - [facility] FluAD FluAD 2019-02-13 Completed [facility] 11:33:00 - [facility] FluAD FluAD 2019-02-13 Completed [facility] 11:33:00 - [facility] FluAD FluAD 2019-02-13 Completed [facility] 11:33:00 - [facility] FluAD FluAD 2019-02-13 Completed [facility] 11:33:00 - [facility] FluAD FluAD 2019-02-13 Completed [facility] 11:33:00 - [facility] FluAD FluAD 2019-02-13 Completed [facility] 11:33:00 - [facility] FluAD FluAD 2019-02-13 Completed [facility] 11:33:00 - [facility] FluAD FluAD 2019-02-13 Completed [facility] 00:00:00 - [facility] Vital Signs Vital Name Observation Time Observation Value Comments Source height 2022-03-17 11:40:00 62.00 [in_i] [facility] C enter weight 2022-03-17 11:40:00 127 [lb_av] [facility] - [facility] C enter bmi 2022-03-17 11:40:00 23.23 kg/m2 [facility] C enter Procedures This patient has no known procedures. Encounters Start End Encounter Admission Attending Care Care Encounter Source Date/Time Date/Time Type Type Clinicians Facility Department ID 2022-11-22 Outpatient Tamez, STLMLC STLMLC [id number] Common 10:46:00 [facility] [id number] [facility] 2022-10-18 Outpatient Tamez, STLMLC STLMLC [id number] Common 09:32:00 [facility] [id number] [facility] 2022-08-09 Outpatient Leah, STLMLC STLMLC [id number] Common 09:29:01 Loren 99301 [facility] 2022-01-13 Outpatient Salomon, Na STLMLC STLMLC [id number] Common 10:39:00 [facility] 2021-10-17 Outpatient Salomon, Na STLMLC STLMLC [id number] Common 15:22:39 [facility] 2021-06-29 Outpatient Salomon, Na STLMLC STLMLC [id number] Common 12:36:25 [id number] [facility] 2021-06-29 Outpatient Salomon, Na STLMLC STLMLC [id number] Common 12:35:33 [id number] [facility] 2021-06-29 Outpatient Salomon, Na STLMLC STLMLC [id number] Common 12:07:12 [id number] [facility] 2021-06-29 Outpatient Salomon, Na STLMLC STLMLC [id number] Common 12:06:16 [id number] [facility] 2021-06-29 Outpatient Salomon, Na STLMLC STLMLC [id number] Common 11:38:53 [id number] [facility] 2021-06-29 Outpatient Salomon, Na STLMLC STLMLC [id number] Common 11:36:25 [id number] [facility] 2021-06-29 Outpatient Salomon, Na STLMLC STLMLC [id number] 2 Common 11:17:48 [id number] [facility] 2021-06-29 Outpatient Bailey Salomon STLMLC STLMLC [id number] Common 11:01:55 [id number] [facility] 2022-07-04 2022-07-04 (TEL) STLMLC STLMLC [id number] Co mmon 00:00:00 00:00:00 [facility] 2022-06-12 2022-06-12 (TEL) STLMLC STLMLC [id number] Co mmon 00:00:00 00:00:00 [facility] 2022-03-17 2022-03-17 OFFICE STLMLC STLMLC [id number] Co mmon 00:00:00 00:00:00 VISIT [facility] [address] 2021-12-28 2021-12-28 (TEL) STLMLC STLMLC [id number] Co mmon 00:00:00 00:00:00 [facility] 2021-10-17 2021-10-17 OFFICE STLMLC STLMLC [id number] Co mmon 00:00:00 00:00:00 VISIT [facility] [address] 2021-10-14 2021-10-14 (TEL) STLMLC STLMLC [id number] Co mmon 00:00:00 00:00:00 [facility] 2021-10-04 2021-10-04 (TEL) STLMLC STLMLC [id number] Co mmon 00:00:00 00:00:00 [facility] 2021-09-14 2021-09-14 (TEL) STLMLC STLMLC [id number] Co mmon 00:00:00 00:00:00 [facility] 2021-09-06 2021-09-06 (TEL) STLMLC STLMLC [id number] Co mmon 00:00:00 00:00:00 [facility] 2021-08-29 2021-08-29 (TEL) STLMLC STLMLC [id number] Co mmon 00:00:00 00:00:00 [facility] 2021-05-06 2021-05-06 (TEL) STLMLC STLMLC [id number] Co mmon 00:00:00 00:00:00 [facility] 2021-04-27 2021-04-27 (TEL) STLMLC STLMLC [id number] Co mmon 00:00:00 00:00:00 [facility] 2020-10-21 2020-10-21 Outpatient STLMLC STLMLC [id number] Common 00:00:00 00:00:00 [facility] 2020-10-20 2020-10-20 Outpatient STLMLC STLMLC [id number] Common 00:00:00 00:00:00 [facility] 2020-08-06 2020-08-06 Outpatient STLMLC STLMLC [id number] Common 00:00:00 00:00:00 [facility] 2020-07-22 2020-07-22 Outpatient STLMLC STLMLC [id number] Common 00:00:00 00:00:00 [facility] 2020-03-24 2020-03-24 Outpatient STLMLC STLMLC [id number] Common 00:00:00 00:00:00 [facility] 2020-01-24 2020-01-24 [id number] Common 12:20:00 12:20:[address] [facility] 2020-01-23 2020-01-23 [facility] [id number] Common 14:00:00 14:00:[address] [facility] 2020-01-23 2020-01-23 [facility] [id number] Common 13:00:00 13:00:[address] [facility] 2020-01-02 2020-01-02 [facility] [id number] Common 15:48:00 15:48:[address] [facility] 2019-10-10 2019-10-10 [facility] [id number] Common 14:09:00 14:09:[address] [facility] 2019-06-23 2019-06-23 [facility] [id number] Common 16:20:00 16:20:[address] [facility] 2019-05-19 2019-05-19 [facility] [id number] Common 10:55:00 10:55:[address] [facility] 2019-04-01 2019-04-01 [facility] [id number] Common 16:27:00 16:27:[address] [facility] 2019-04-01 2019-04-01 [facility] [id number] Common 15:56:00 15:56:[address] [facility] 2019-04-01 2019-04-01 [facility] [id number] Common 10:41:00 10:41:[address] [facility] 2019-02-13 2019-02-13 [facility] [id number] Common 10:20:00 10:20:[address] [facility] 2019-02-10 2019-02-10 [facility] [id number] Common 16:38:00 16:38:[address] [facility] 2018-05-23 2018-05-23 [facility] [id number] Common 09:00:00 09:00:[address] [facility] 2018-04-15 2018-04-15 [facility] [id number] Common 11:00:00 11:00:[address] [facility] 2018-03-15 2018-03-15 [facility] [id number] Common 11:19:00 11:19:[address] [facility] 2018-02-21 2018-02-21 [facility] [id number] Common 10:45:00 10:45:[address] [facility] 2017-12-04 2017-12-04 [facility] [id number] Common 14:02:00 14:02:[address] [facility] 2017-11-21 2017-11-21 [facility] [id number] Common 15:15:00 15:15:[address] [facility] Results Test Description Test Time Test [...] ng/mLAmphetamine/ 1000 ng/mL MethamphetamineOxycodone 300 ng/mLURINALYSIS W/ [id number] 05:47:00 Test Item Value Reference Range Interpretation [...] 516) SOURCE(BEAKER) (test code = Urine, Voided 6178) BASIC METABOLIC [id number] 02:25:00 Test Item Value Reference Range Interpretation [...] PATIEN TS. CBC W/PLT COUNT & AUTO [id number] 02:17:00 Test Item Value Reference Range Interpretation [...] K/ L 0.00-0.20 (test code = 417) [id number] 20:56:00 Test Item Value Reference Range Interpretation Comments ETHANOL (BEAKER) (test code = 400) 259 mg/dL <=10 H BASIC METABOLIC [id number] 20:55:00 Test Item Value Reference Range Interpretation [...] TO CALCULA TE ESTIMATED GFR. HEPATIC FUNCTION [id number] 20:54:00 Test Item Value Reference Range Interpretation [...] 6-55 347) CBC W/PLT COUNT & AUTO [id number] 20:36:00 Test Item Value Reference Range Interpretation [...]
[2023-01-06] MEDS ORDERED: NA CHLORIDE 0.9% 1,000 ML ONE (15:23)
[2023-01-06] MEDS ORDERED: SUCRALFATE 1 GM TABLET ONE (15:23)
[2023-01-06] MEDS ORDERED: MAGNES/ALUMIN/SIMET 30ML UCUP ONE (15:24)
[2023-01-06 15:44] LABS: Absolute Lymphocytes (CBC) 1.3 K/uL (0.7-4.9); Hematocrit 42.5 % (36.0-45.0); Lymphocytes % 21.2 % (15.3-44.8); MCV 100.3 fL (80-100); MPV 7.5 fL (7.6-11.3); RBC Red Blood Cell Count 4.23 M/uL (3.86-4.86)
[2023-01-06 15:47] LABS: Protime INR 0.92
--- NOTE | 2023-01-06 15:49 | RAD REPORT ---
EXAM DESCRIPTION: CT - Head Brain Wo Cont - 01/06/2023 3:31 pm CLINICAL HISTORY: fall Headache, drowsiness COMPARISON: Head Brain Wo Cont dated 11/04/2022; SINUS W O CONTRAST dated 03/16/2014; Head C Spine Ca p W Con dated 11/08/2022 TECHNIQUE: All CT scans are performed using dose optimization technique as appropriate and may inclu de automated exposure control or mA/KV adjustment according to patient size. FINDINGS: No intracranial hemorrhage, hydrocephalus or extra-axial fluid collection.Moderate general ized brain atrophy is present with moderate periventricular and deep white matter chronic microvascul ar ischemic changes.No areas of brain edema or evidence of midline shift. The paranasal sinuses and mastoids are clear. The calvarium is intact. IMPRESSION: No acute intracranial abnormality.
--- NOTE | 2023-01-06 15:53 | RAD REPORT ---
EXAM DESCRIPTION: CT - Spine Lumbar Wo Con - 01/06/2023 3:37 pm CLINICAL HISTORY: Radiculopathy. fall COMPARISON: LUMBAR SPINE W O CONTRAST dated 01/10/2015; Lumbar Spine 3 Views dated 09/06/2022 TECHNIQUE: Axial noncontrast CT imaging of the lumbar spine was performed with coronal and sagittal re-formatted images. All CT scans are performed using dose optimization technique as appropriate and may include automated exposure control or mA/KV adjustment according to patient size. FINDINGS: Mild anterior wedge compression fracture affects the L1 vertebral body, likely chronic. It was present on the September 24 plain radiograph. Mild lumbar vacuum disc degeneration. Mild bilateral l ower lumbar facet hypertrophy. Paraspinal tissues are normal in thickness. No paraspinal abscess or hematoma seen. Mild dextroscoliosis of the lumbar spine. Significant aortoiliac atherosclerosis. IMPRESSION: Mild anterior wedge compression fracture L1 vertebral body, likely chronic. No acute finding suspected.
[2023-01-06 15:59] LABS: Albumin 3.7 g/dL (3.4-5.0); Bilirubin Direct 0.5 mg/dL (0-0.2); Bilirubin Indirect, Calculated 0.9 mg/dL (0.2-0.8); Bilirubin Total 1.4 mg/dL (0.2-1.0); Potassium 3.7 mEq/L (3.5-5.1); Protein, Total 7.4 g/dL (6.4-8.2)
--- NOTE | 2023-01-06 16:21 | RAD REPORT ---
EXAM DESCRIPTION: RAD - Chest Single View - 01/06/2023 4:12 pm CLINICAL HISTORY: fall Chest pain. COMPARISON: <Comparisons> FINDINGS: Portable technique limits examination quality. The lungs are emphysematous but grossly clear. The heart is mildly prominent in size. No displaced fr actures. IMPRESSION: No acute intrathoracic process suspected.
--- NOTE | 2023-01-06 17:20 | EDPHYS ---
Physician Documentation [facility] Name: Heaven Bhatia Age: 62 yrs Sex: Female : 1960 Arrival Date: 01/06/2023 Time: 14:25 Bed 2 Private MD: ED Physician Talon Ayala HPI: 01/06 17:30 This 62 yrs old Female presents to ER via EMS with complaints of pain after fall. cp3 15:59 Patient is a 62-year-old female with a history of chronic back pain, alcohol abuse, cp3 hyperlipidemia, hypertension who endorses that she was drinking last night and slipped and fell. Patient endorses exacerbation of her chronic back pain and mid abdominal pain. Patient also feels like she is dehydrated. Patient ambulates with a walker. Patient endorses when her friends came by to check on her and advised that she come to the emergency room for evaluation.. Historical: - Allergies: 14:33 No Known Allergies; mb9 - PMHx: 14:33 chronic back pain; etoh abuse; Hyperlipidemia; Hypertensive disorder; Seizure; COPD; mb9 - PSHx: 14:33 Appendectomy; mb9 - Immunization history:: Adult Immunizations up to date. - Social history:: Smoking status: Patient reports the use of cigarette tobacco products, smokes one pack cigarettes per day. - Family history:: not pertinent. ROS: 16:00 Eyes: Negative for injury, pain, redness, and discharge, ENT: Negative for injury, cp3 pain, and discharge, Respiratory: Negative for shortness of breath, cough, wheezing, and pleuritic chest pain, Skin: Negative for injury, rash, and discoloration, Neuro: Negative for headache, weakness, numbness, tingling, and seizure, Psych: Negative for depression, anxiety, suicide ideation, homicidal ideation, and hallucinations, Allergy/Immunology: Negative for hives, rash, and allergies, Endocrine: Negative for neck swelling, polydipsia, polyuria, polyphagia, and marked weight changes, Hematologic/Lymphatic: Negative for swollen nodes, abnormal bleeding, and unusual bruising. 16:00 Abdomen/GI: Positive for abdominal pain, nausea and vomiting. 16:00 Back: Positive for pain at rest, pain with movement. 16:00 : Positive for urinary symptoms, foul smelling urine. 16:00 MS/extremity: Positive for pain, Back pain. Exam: 16:01 Eyes: Pupils equal round and reactive to light, extra-ocular motions intact. Lids and cp3 lashes normal. Conjunctiva and sclera are non-icteric and not injected. Cornea within normal limits. Periorbital areas with no swelling, redness, or edema. ENT: Nares patent. No nasal discharge, no septal abnormalities noted. Tympanic membranes are normal and external auditory canals are clear. Oropharynx with no redness, swelling, or masses, exudates, or evidence of obstruction, uvula midline. Mucous membranes moist. Neck: Trachea midline, no thyromegaly or masses palpated, and no cervical lymphadenopathy. Supple, full range of motion without nuchal rigidity, or vertebral point tenderness. No Meningismus. Chest/axilla: Normal chest wall appearance and motion. Nontender with no deformity. No lesions are appreciated. Cardiovascular: Regular rate and rhythm with a normal S1 and S2. No gallops, murmurs, or rubs. Normal PMI, no JVD. No pulse deficits. Respiratory: Lungs have equal breath sounds bilaterally, clear to auscultation and percussion. No rales, rhonchi or wheezes noted. No increased work of breathing, no retractions or nasal flaring. 16:01 Neuro: Awake and alert, GCS 15, oriented to person, place, time, and situation. Cranial nerves II-XII grossly intact. Motor strength 5/5 in all extremities. Sensory grossly intact. Cerebellar exam normal. Normal gait. Psych: Awake, alert, with orientation to person, place and time. Behavior, mood, and affect are within normal limits. 16:01 Constitutional: The patient appears alert, awake, smells of alcohol, unkempt. 16:01 Abdomen/GI: Palpation: mild abdominal tenderness, in the epigastric area and umbilical area. 16:01 Back: pain, that is mild, of the lumbar area. 16:01 : CVA tenderness, is absent. Vital Signs: 14:31 BP 133 / 69; Pulse 95; Resp 22; Temp 98.8(O); Pulse Ox 94% on R/A; Weight 61.23 kg; mb9 Height 5 ft. 5 in. ; Pain 10/10; 15:08 BP 142 / 78; Pulse 93; Resp 24; Pulse Ox 96% on 2 lpm NC; mb9 16:35 BP 132 / 74; Pulse 74; Resp 18; Pulse Ox 100% ; mb9 17:31 BP 135 / 81; Pulse 78; Resp 16; Pulse Ox 100% on R/A; mb9 14:31 Body Mass Index 22.46 (61.23 kg, 165.1 cm) mb9 14:31 Pain Scale: Adult mb9 Surrency Coma Score: 17:30 Eye Response: spontaneous(4). Motor Response: obeys commands(6). Verbal Response: cp3 oriented(5). Total: 15. MDM: 14:33 Patient medically screened. cp3 16:03 Differential diagnosis: The differential diagnosis includes: Acute fall, chronic cp3 alcoholism, failure to thrive, acute on chronic back pain, syncope, electrolyte abnormality, dehydration. Data reviewed: vital signs, nurses notes, EMS record, lab test result(s), EKG, radiologic studies. Consideration of Admission/Observation Escalation of care including admission/observation considered. Patient declines admission at this time. 17:30 Response to treatment: the patient's symptoms have markedly improved after treatment. cp3 ED course: rocephin and morphine provided for uti and pain. 17:30 Counseling: I had a detailed discussion with the patient and/or guardian regarding: cp3 alcohol cessation. ED course: ekg interpreted 1448: sinus rhythm, no evidence of acute mi, qt 380. ED course: desk monitor interpreted - rate 78, sinus rhythm . 01/06 15:10 Order name: Basic Metabolic Panel; Complete Time: 16:31 cp3 01/06 15:10 Order name: CBC with Diff; Complete Time: 16:31 cp3 01/06 15:10 Order name: Type And Screen; Complete Time: 16:31 cp3 01/06 15:10 Order name: Urinalysis w/ reflexes; Complete Time: 19:18 cp3 01/06 15:10 Order name: Ethanol; Complete Time: 16:31 cp3 01/06 15:10 Order name: Rapid Strep cp3 01/06 15:10 Order name: Hepatic Function; Complete Time: 16:31 cp3 01/06 15:10 Order name: PT-INR; Complete Time: 16:31 cp3 01/06 15:10 Order name: Ptt, Activated; Complete Time: 16:31 cp3 01/06 15:10 Order name: Salicylate; Complete Time: 16:31 cp3 01/06 15:10 Order name: Urine Drug Screen; Complete Time: 19:18 cp3 01/06 15:10 Order name: Lipase; Complete Time: 16:31 cp3 01/06 16:12 Order name: Throat Culture EDMS 01/06 16:19 Order name: ABO/RH no charge; Complete Time: 16:31 EDMS 01/06 15:10 Order name: XRAY Chest (1 view); Complete Time: 16:31 cp3 01/06 15:10 Order name: CT Head Brain wo Cont; Complete Time: 16:31 cp3 01/06 15:10 Order name: CT Lumbar Spine Wo Con; Complete Time: 16:31 cp3 01/06 15:10 Order name: Labs collected and sent; Complete Time: 15:10 cp3 Administered Medications: 15:24 Drug: Alum-Mag Hydroxide-Simeth PO Suspension (200 mg-200 mg-20 mg/5 mL) 30 ml Route: mb9 PO; 15:46 Follow up: Response: No adverse reaction mb9 15:24 Drug: Sucralfate PO 1 grams Route: PO; mb9 15:45 Follow up: Response: No adverse reaction mb9 15:25 Drug: NS 0.9% IV 1000 ml Route: IV; Rate: 1 bolus; Site: right antecubital; mb9 17:29 Follow up: Response: No adverse reaction; IV Status: Completed infusion mb9 17:25 Drug: morphine IVP or IV 4 mg Route: IVP; Infused Over: 4 mins; Site: right antecubital;mb9 17:29 Follow up: Response: No adverse reaction mb9 17:26 Drug: Rocephin IV 1 grams Route: IV; Rate: calculated rate; Site: right antecubital; mb9 17:29 Follow up: Response: No adverse reaction; IV Status: Completed infusion mb9 Disposition Summary: 01/06/23 17:20 Discharge Ordered Location: Home cp3 Condition: Stable cp3 Problem: an acute exacerbation cp3 Symptoms: have improved cp3 Diagnosis - Repeated falls cp3 - Alcohol abuse cp3 - Low back pain cp3 - Unspecified injury of head, initial encounter - closed head injury sp fall cp3 - UTI/ Urinary tract infection, site not specified cp3 - Dehydration cp3 Followup: cp3 - With: [place], Juan, MD - When: As needed - Reason: Discharge Instructions: - Discharge Summary Sheet cp3 - Chronic Back Pain cp3 - Fall Prevention in the Home, Adult cp3 - Urinary Tract Infection, Adult cp3 Forms: - Medication Reconciliation Form cp3 - Thank You Letter cp3 - Antibiotic Education cp3 - Prescription Opioid Use cp3 - Patient Portal Instructions cp3 Prescriptions: - ketorolac 10 mg Oral tablet - take 1 tablet by ORAL route every 8 hours for 5 days as needed for pain; 15 cp3 tablet; Refills: 0, Product Selection Permitted - Macrobid 100 mg Oral Capsule - take 1 capsule by ORAL route every 12 hours for 10 days; 20 capsule; Refills: cp3 0, Product Selection Permitted Signatures: Dispatcher [employer] Talon King MD MD cp3 Coreen Mcginnis RN RN mb9
--- NOTE | 2023-01-06 17:20 | ER ---
Nurse's Notes [facility] Name: Heaven Age: 62 yrs Sex: Female : 1960 Arrival Date: 01/06/2023 Time: 14:25 Bed 2 Private MD: Diagnosis: Repeated falls;Alcohol abuse;Low back pain;Unspecified injury of head, initial encounter-closed head injury sp fall;UTI/ Urinary tract infection, site not specified;Dehydration Presentation: 01/06 14:31 Chief complaint: EMS states: "Toned out for SOB and lower abdominal pain that started mb9 yesterday. Pt states feels nauseous and has been coughing up mucous. Gave 15 mg of Tordal, 2 mg of Solu-Medrol, AA treatment, and 4 mg of Zofran via 20 g to right AC". Coronavirus screen: Vaccine status: Patient reports being unvaccinated. Ebola Screen: No symptoms or risks identified at this time. Initial Sepsis Screen: Does the patient meet any 2 criteria? RR > 20 per min. HR > 90 bpm. Does the patient have a suspected source of infection? No. Patient's initial sepsis screen is negative. Risk Assessment: Do you want to hurt yourself or someone else? Patient reports no desire to harm self or others. Onset of symptoms was 2022. 14:31 Method Of Arrival: EMS: [facility] mb9 14:31 Acuity: MARILYNN 3 mb9 14:34 Care prior to arrival: IV initiated. 20 GA, in the right antecubital area. mb9 Triage Assessment: 14:33 General: Appears uncomfortable, Behavior is cooperative, anxious. Pain: Complains of mb9 pain in abdomen Pain currently is 10 out of 10 on a pain scale. Quality of pain is described as throbbing, Pain began suddenly, Is continuous. Neuro: Matos Agitation-Sedation Scale (RASS): 0 - Alert and Calm Level of Consciousness is awake, alert, obeys commands, Oriented to person, place, time, situation, Appropriate for age. Cardiovascular: Heart tones S1 S2 present Rhythm is regular. Respiratory: Reports shortness of breath at rest on exertion cough that is productive, Airway is patent Respiratory effort is even, unlabored, Respiratory pattern is tachypnea Breath sounds with wheezes bilaterally. GI: Abdomen is flat, non-distended, Bowel sounds present X 4 quads. Abd is soft Abdomen is tender to palpation X 4 quads. Reports nausea, vomiting. : No signs and/or symptoms were reported regarding the genitourinary system. Derm: Skin is pink, warm \\T\\ dry. Musculoskeletal: Range of motion: intact in all extremities. Historical: - Allergies: 14:33 No Known Allergies; mb9 - PMHx: 14:33 chronic back pain; etoh abuse; Hyperlipidemia; Hypertensive disorder; Seizure; COPD; mb9 - PSHx: 14:33 Appendectomy; mb9 - Immunization history:: Adult Immunizations up to date. - Social history:: Smoking status: Patient reports the use of cigarette tobacco products, smokes one pack cigarettes per day. - Family history:: not pertinent. Screenin:35 [facility] ED Fall Risk Assessment (Adult) History of falling in the last 3 months, mb9 including since admission No falls in past 3 months (0 pts) Confusion or Disorientation No (0 pts) Intoxicated or Sedated No (0 pts) Impaired Gait No (0 pts) Mobility Assist Device Used No (0 pt) Altered Elimination No (0 pt) Score/Fall Risk Level 0 - 2 = Low Risk Oriented to surroundings, Maintained a safe environment, Educated pt \\T\\ family on fall prevention, incl call for assistance when getting out of bed. Abuse screen: Denies threats or abuse. Nutritional screening: No deficits noted. Tuberculosis screening: No symptoms or risk factors identified. Assessment: 14:39 Reassessment: see triage assessment. mb9 15:25 Reassessment: pt taken to CT via stretcher. mb9 15:40 Reassessment: No changes from previously documented assessment. Patient and/or family mb9 updated on plan of care and expected duration. Pain level reassessed. Patient is alert, oriented x 3, equal unlabored respirations, skin warm/dry/pink. 16:40 Reassessment: No changes from previously documented assessment. Patient and/or family mb9 updated on plan of care and expected duration. Pain level reassessed. Patient is alert, oriented x 3, equal unlabored respirations, skin warm/dry/pink. 17:55 Reassessment: Patient and/or family updated on plan of care and expected duration. Pain mb9 level reassessed. Patient is alert, oriented x 3, equal unlabored respirations, skin warm/dry/pink. Patient states feeling better. Patient states symptoms have improved. Vital Signs: 14:31 BP 133 / 69; Pulse 95; Resp 22; Temp 98.8(O); Pulse Ox 94% on R/A; Weight 61.23 kg; mb9 Height 5 ft. 5 in. ; Pain 10/10; 15:08 BP 142 / 78; Pulse 93; Resp 24; Pulse Ox 96% on 2 lpm NC; mb9 16:35 BP 132 / 74; Pulse 74; Resp 18; Pulse Ox 100% ; mb9 17:31 BP 135 / 81; Pulse 78; Resp 16; Pulse Ox 100% on R/A; mb9 14:31 Body Mass Index 22.46 (61.23 kg, 165.1 cm) mb9 14:31 Pain Scale: Adult mb9 Lanie Coma Score: 17:30 Eye Response: spontaneous(4). Motor Response: obeys commands(6). Verbal Response: cp3 oriented(5). Total: 15. ED Course: 14:28 Patient arrived in ED. eb 14:31 Coreen Mcginnis, RN is Primary Nurse. mb9 14:31 Arm band placed on. mb9 14:33 Triage completed. mb9 14:33 Talon Ayala MD is Attending Physician. cp3 14:35 Placed in gown. Bed in low position. Call light in reach. Side rails up X 1. Client mb9 placed on continuous cardiac and pulse oximetry monitoring. NIBP monitoring applied. monitoring analyst on. 14:35 No provider procedures requiring assistance completed. mb9 15:24 Lipase Sent. mb9 15:24 Hepatic Function Sent. mb9 15:24 PT-INR Sent. mb9 15:24 Ptt, Activated Sent. mb9 15:24 Salicylate Sent. mb9 15:25 Ethanol Sent. mb9 15:25 Basic Metabolic Panel Sent. mb9 15:25 CBC with Diff Sent. mb9 15:25 Type And Screen Sent. mb9 15:31 CT Head Brain wo Cont In Process Unspecified. EDMS 15:40 CT Lumbar Spine Wo Con In Process Unspecified. EDMS 15:45 Rapid Strep Sent. mb9 16:14 XRAY Chest (1 view) In Process Unspecified. EDMS 17:18 Juan Valdivia MD is Referral Physician. cp3 17:56 IV discontinued, intact, bleeding controlled, No redness/swelling at site. Pressure mb9 dressing applied. Administered Medications: 15:24 Drug: Alum-Mag Hydroxide-Simeth PO Suspension (200 mg-200 mg-20 mg/5 mL) 30 ml Route: mb9 PO; 15:46 Follow up: Response: No adverse reaction mb9 15:24 Drug: Sucralfate PO 1 grams Route: PO; mb9 15:45 Follow up: Response: No adverse reaction mb9 15:25 Drug: NS 0.9% IV 1000 ml Route: IV; Rate: 1 bolus; Site: right antecubital; mb9 17:29 Follow up: Response: No adverse reaction; IV Status: Completed infusion mb9 17:25 Drug: morphine IVP or IV 4 mg Route: IVP; Infused Over: 4 mins; Site: right antecubital;mb9 17:29 Follow up: Response: No adverse reaction mb9 17:26 Drug: Rocephin IV 1 grams Route: IV; Rate: calculated rate; Site: right antecubital; mb9 17:29 Follow up: Response: No adverse reaction; IV Status: Completed infusion mb9 Medication: 14:40 VIS not applicable for this client. mb9 Outcome: 17:20 Discharge ordered by . cp3 17:56 Discharged to home via wheelchair, with family. mb9 17:56 Condition: stable 17:56 Discharge instructions given to patient, Instructed on discharge instructions, follow up and referral plans. Demonstrated understanding of instructions, follow-up care, medications, Prescriptions given X 2. 17:56 Patient left the ED. mb9 Signatures: Dispatcher [employer] Talon King MD MD 3 Mya Robledo Mary Beth, RN RN mb9
[2023-01-06 17:35] LABS: Specific Gravity 1.021 (1.005-1.030); Urine Bacteria <20 /HPF (<20); Urine Bilirubin 2+ (Negative); Urine Blood Negative (Negative); Urine Clarity Extremely Turbid (Clear); Urine Color Yellow (Yellow); Urine Glucose NEGATIVE (Negative); Urine Mucus Slight /HPF (None Seen); Urine Protein TRACE (Negative); Urine Urobilinogen 2+ (Normal); Urine pH 5.5 (5.0-7.0)
[2023-01-06] MEDS ORDERED: MORPHINE 4 MG/ML SYR ONE (17:35)
[2023-01-06] MEDS ORDERED: CEFTRIAXONE 1000 MG/VIAL ONE (17:35)
[2023-01-06 17:36] LABS: Barbiturates NEGATIVE (NEGATIVE); Benzodiazepines POSITIVE (NEGATIVE); Cocaine NEGATIVE (NEGATIVE); METHAMPHETAM NEGATIVE (NEGATIVE); Methadone NEGATIVE (NEGATIVE); Opiates NEGATIVE (NEGATIVE); Phencyclidine NEGATIVE (NEGATIVE); THC Cannibis NEGATIVE (NEGATIVE)
[2023-01-06 18:31] VITALS: TEMP 98.8
[2023-01-06 18:34] VITALS: O2SAT 100
[2023-01-06 18:36] VITALS: BP 135/81
--- NOTE | 2023-01-08 13:05 | EKG ---
Test Date: 2023-01-06 Test Time: 14:48:34 Customer Care Team Coach: MB MEASUREMENT RESULTS: Intervals: Rate: 97 MA: 140 QRSD: 88 QT: 380 QTc: 482 [place]: P: 64 MA: 140 QRS: -20 T: 153 INTERPRETIVE STATEMENTS: Normal sinus rhythm Anteroseptal infarct, age undetermined ST & T wave abnormality, consider inferolateral ischemia Abnormal ECG Compared to ECG 12/04/2022 00:58:47 Myocardial infarct finding now present ST (T wave) deviation now present Possible ischemia now present Sinus tachycardia no longer present Left bundle-branch block no longer present Electronically Signed On 01-08-23 13:03:46 CDT by Toby Castanon
== END 2023-01-06 17:56 | disposition home or self-care (01) ==
LOC: ER 14:25
DX: F10.10 Alcohol abuse, uncomplicated (principal); M54.50 Low back pain, unspecified; S09.90XA Unspecified injury of head, initial encounter; N39.0 Urinary tract infection, site not specified; E86.0 Dehydration; R29.6 Repeated falls; I10 Essential (primary) hypertension; J44.9 Chronic obstructive pulmonary disease, unspecified; F17.210 Nicotine dependence, cigarettes, uncomplicated
CPT/HCPCS: 96361; 93005; 87070; 85025; 81001; 80048; 36415; 86900; 86850; 85610; 86901; 80076; 87081; 85730; 83690; 80307; 72131; 70450; 71045; 96375; 96374; 99285; 80179; 82077; J7030; J0696

== ENCOUNTER 2023-01-26 08:41 | Emergency (ER) | payer OTHER ==
--- OUTSIDE RECORDS SUMMARY | 2023-01-26 08:46 | XMS REPORT | Continuity of Care Document ---
:1960 Author Organization Formerly [facility] t Address [address] [address] [place] [address] Care Team Providers Name Role Phone Sharpless Primary Care Physician Hero Tamez Attending Clinician Unavailable Loren Lynn Attending Clinician Unavailable Bailey Salomon Attending Clinician Unavailable CALLUM CERRATO Attending Clinician Unavailable CHRISTELLE GARDNER Admitting Clinician Unavailable Payers Payer Name Policy Type Policy Number Effective Date Expiration Date S ource MEDICARE MB [id number] 2008 [facility] NOVITAS 00:00: [facility] C1 [id number] [facility] Problems Condition Condition Condition Status Onset Resolution Last Treating Co mments Source Name Details Category Date Date Treatment Clinician Date Alcohol Alcohol Disease Recurre [facility] intoxic[facility] intoxicati nce 08-29 Randee kes on on 00:00: Medical 00 [place] Suicidal Suicidal Disease Active [facility] 00:[facility]: Medical [place] Fall, Fall, Disease Active [facility] initial initial 08-29 [facility] encounter encounter 00:00: Medi yoan 00 [place] Allergic Allergic Problem Commo n rhinitis rhinitis [facility] Hypothyroi Hypothyroi Problem C ommon dism dism [facility] Constipati Constipati Problem C ommon on on [facility] Hyperlipid Hyperlipid Problem C ommon emia emia [facility] [id number] Depression Problem Com mon with Spirit anxiety [facility] Hypotensio Hypotensio Problem C ommon n n [facility] Obesity Mild Problem Common obesity [facility] Seizure Seizures Problem Common [facility] Localized Localized Problem Com mon swelling, swelling, Spir it mass and mass and - CHI lump, neck lump, neck [facility] [id number] Primary Problem Common insomnia [facility] [id number] Localized Problem Comm on osteoporos Spirit is, - CHI unspecifie [facility] pathologic Medica l al [place] fracture presence [id number] 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 Nicotine Nicotine Problem Commo n dependence dependence Sp [facility] Vitamin D Vitamin D Problem Com [facility] deficiency [facility] Nausea and Intractabl Problem C ommon vomiting e vomiting Spir it with - [facility] Medica l type Center [id number] Gastroesop Problem Co mmon hageal Spirit reflux - [facility] disease [facility] esophagiti Medica l s Center [id number] Urinary Problem Commo n frequency [facility] Essential Benign Problem Common hypertensi essential Spi rit on HTN [facility] [id number] Vomiting Problem Com mon 11427 without Spirit nausea, - CHI intractabi [facility] vomiting Medical not Center specified, unspecifie d vomiting type Tobacco Cigarette Problem Commo n user nicotine Spirit dependence - [facility] without St complicati [facility] Epigastric Epigastric Problem C ommon pain pain [facility] Abnormal Abnormal Problem Commo n weight weight Spirit loss loss [facility] Allergies, Adverse Reactions, Alerts Allergy Allergy Status Severity Reaction(s) Onset Inactive Treating Comm ents Source Name Type Date Date Clinician morphine morphine Active nausea [facility] NO KNOWN Allergy Active [facility] Social History Social Habit Start Date Stop Date Quantity Comments Source History of Current Smoker Common Spi rit - Tobacco Use [facility] Alcohol intake 2016-08-28 2016-08-28 Current drinker LIZBETH Nathan 00:00:00 00:00:00 of [facility] (finding) Sex Assigned At [birth year] LIZBETH Martinez 00:00:00 00:00:00 [facility] Smoking Status Start Date Stop Date Source Current Smoker 2022-01-16 00:00:00 [facility] - [facility] Medications Ordered Filled Start Stop Current Ordering Indication Dosage Frequency Signature Comments Components Source Medication Medication Date Date Medication? Clinician (SIG) Name Name Nystatin Nystatin 2020-06- No 1{appli BID Nystatin [id number] 2-04 07-06 cation_ [id number] UNIT/GM UNIT/GM 00:00: 00:00 to_affe UNIT/GM 00 :00 cted_ar ea} Triamcinolo Triamcinolo 2020-0 Yes Na Salomon 1 Common ne ne 5-08 applicatio Spirit Acetonide Acetonide 00:00: n to - C HI [address] [facility] Triamcinolo Triamcinolo 2020-0 No 1{appli BID [...] 00 cted_ar 0.1 % ea} Metoprolol Metoprolol 2019-0 Yes Na Salomon 1 tablet Common Succinate [...] on 2-16 Spirit 00:00: - CHI 00 [facility] Xanax 0.5 Xanax 0.5 2018-06 No 1{table [...] 5,[address] michelle, 3-28 Units by LuTerranova vitamin D3, 14:35: mouth once Medical 5,000 unit 17 a week. Center Tab UNKNOWN Yes Blood [facility] 3- [facility] 14:35: med does Medical 17 not know Center name nor dose . Levothyroxi Levothyroxi Yes Na Salomon 1 tablet Common ne Sodium ne Sodium on an Spir it empty - CHI stomach in [facility] Furosemide Furosemide Yes Na Salomon 1 tablet Common [facility] Cymbalta Cymbalta Yes Na Salomon 1 capsule Common [facility] Cozaar Cozaar Yes Na Salomon 1 tablet Comm on [facility] Pravastatin Pravastatin Yes Na Salomon 1 tablet Common Sodium Sodium [facility] Omeprazole Omeprazole Yes Na Salomon 1 capsule Common [facility] ProAir HFA ProAir HFA Yes Na Salomon 1 puff as Common needed [facility] Ambien Ambien Yes Na Salomon 1 tablet Comm on at bedtime Spirit as needed [facility] Phenytoin Phenytoin Yes Na Salomon not Co mmon defined [facility] Furosemide Furosemide Yes Na Salomon 1 tablet Common [facility] Advair Advair Yes Na Salomon 1 puff Common Diskus Diskus [facility] Dilaudid Dilaudid Yes Na Salomon 1 tablet Common as needed [facility] Trazodone Trazodone Yes Na Salomon 1 tablet Common HCl HCl at bedtime Spirit as needed - [facility] Potassium Potassium Yes Na Salomon not Co mmon defined Spirit [facility] Dilantin Dilantin Yes Na Salomon 5 capsule Common [facility] Amitiza Amitiza Yes Na Salomon 1 capsule C ommon with food Spirit and water - [facility] Phenytoin Phenytoin No Phenytoin Potassium [...] FluAD 2019-02-13 Completed [facility] 11:33:00 - [facility] FluAD FluAD 2019-02-13 Completed [facility] 11:33:00 - [facility] FluAD FluAD 2019-02-13 Completed [facility] 11:33:00 - [facility] FluAD FluAD 2019-02-13 Completed [facility] 11:33:00 - [facility] FluAD FluAD 2019-02-13 Completed [facility] 11:33:00 - [facility] FluAD FluAD 2019-02-13 Completed [facility] 11:33:00 - [facility] FluAD FluAD 2019-02-13 Completed [facility] 11:33:00 - [facility] FluAD FluAD 2019-02-13 Completed [facility] 11:33:00 - [facility] FluAD FluAD 2019-02-13 Completed [facility] 11:33:00 - [facility] FluAD FluAD 2019-02-13 Completed [facility] 11:33:00 - [facility] FluAD FluAD 2019-02-13 Completed [facility] 11:33:00 - [facility] FluAD FluAD 2019-02-13 Completed [facility] 11:33:00 - [facility] FluAD FluAD 2019-02-13 Completed [facility] 00:00:00 - [facility] Vital Signs Vital Name Observation Time Observation Value Comments Source height 2022-03-17 11:40:00 62.00 [in_i] Common Farida [facility] C enter weight 2022-03-17 11:40:00 127 [facility]lb_av] [facility] 2022-03-17 11:40:00 23.23 kg/m2 Common S [facility] enter Procedures This patient has no known procedures. Encounters Start End Encounter Admission Attending Care Care Encounter Source Date/Time Date/Time Type Type Clinicians Facility Department ID 2023-01-11 Outpatient Tamez, STLMLC STLMLC [id number] Common 12:56:00 Hero [id number] [facility] 2022-11-22 Outpatient Tamez, STLMLC STLMLC [id number] Common 10:46:00 Hero [id number] [facility] 2022-10-18 Outpatient Tamez, STLMLC STLMLC [id number] Common 09:32:00 Hero [id number] [facility] 2022-08-09 Outpatient Leah, STLMLC STLMLC [id number] Common 09:29:01 Loren [id number] [facility] 2022-01-13 Outpatient Salomon, Na STLMLC STLMLC [id number] Common 10:39:00 [facility] 2021-10-17 Outpatient Salomon, Na STLMLC STLMLC [id number] Common 15:22:39 [facility] 2021-06-29 Outpatient Salomon, Na STLMLC STLMLC [id number] Common 12:36:25 [facility] 2021-06-29 Outpatient Salomon, Na STLMLC STLMLC [id number] Common 12:35:33 [id number] [facility] 2021-06-29 Outpatient Salomon, Na STLMLC STLMLC [id number] Common 12:07:12 [id number] [facility] 2021-06-29 Outpatient Salomon, Na STLMLC STLMLC [id number] Common 12:06:16 [id number] [facility] 2021-06-29 Outpatient Salomon, Na STLMLC STLMLC [id number] Common 11:38:53 [id number] [facility] 2021-06-29 Outpatient Salomon, Na STLMLC STLMLC [id number] Common 11:36:25 [id number] [facility] 2021-06-29 Outpatient Salomon, Na STLMLC STLMLC [id number] Common 11:17:48 [id number] [facility] 2021-06-29 Outpatient Salomon, Na STLMLC STLMLC [id number] Common 11:01:55 [id number] [facility] 2022-07-04 2022-07-04 (TEL) STLMLC STLMLC [id number] Co mmon 00:00:00 00:00:00 [facility] 2022-06-12 2022-06-12 (TEL) STLMLC STLMLC [id number] Co mmon 00:00:00 00:00:00 [facility] 2022-03-17 2022-03-17 OFFICE STLMLC STLMLC [id number] Co mmon 00:00:00 00:00:00 VISIT [facility] PT - CHI LEVEL 4 [facility] 2021-12-28 2021-12-28 (TEL) STLMLC STLMLC [id number] Co mmon 00:00:00 00:00:00 [facility] 2021-10-17 2021-10-17 OFFICE STLMLC STLMLC [id number] Co mmon 00:00:00 00:00:00 VISIT [facility] PT - CHI LEVEL 4 [facility] 2021-10-14 2021-10-14 (TEL) STLMLC STLMLC [id number] Co mmon 00:00:00 00:00:00 [facility] 2021-10-04 2021-10-04 (TEL) STLMLC STLMLC [id number] Co mmon 00:00:00 00:00:00 [facility] 2021-09-14 2021-09-14 (TEL) STLMLC STLMLC [id number] Co mmon 00:00:00 00:00:00 [facility] 2021-09-06 2021-09-06 (TEL) STLMLC STLMLC [id number] Co mmon 00:00:00 00:00:00 [facility] 2021-08-29 2021-08-29 (TEL) STLMLC STLMLC [id number] Co mmon 00:00:00 00:00:00 [facility] 2021-05-06 2021-05-06 (TEL) STLMLC STLMLC [id number] Co mmon 00:00:00 00:00:00 [facility] 2021-04-27 2021-04-27 (TEL) STLMLC STLMLC [id number] Co mmon 00:00:00 00:00:00 [facility] 2020-10-21 2020-10-21 Outpatient STLMLC STLMLC [id number] Common 00:00:00 00:00:00 [facility] 2020-10-20 2020-10-20 Outpatient STLMLC STLMLC [id number] Common 00:00:00 00:00:00 [facility] 2020-08-06 2020-08-06 Outpatient STLMLC STLMLC [id number] Common 00:00:00 00:00:00 [facility] 2020-07-22 2020-07-22 Outpatient STLMLC STLMLC [id number] Common 00:00:00 00:00:00 [facility] 2020-03-24 2020-03-24 Outpatient STLMLC STLMLC [id number] Common 00:00:00 00:00:00 [facility] 2020-01-24 2020-01-24 [id number] Common 12:20:00 12:20:[address] [facility] 2020-01-23 2020-01-23 [facility] [id number] Common 14:00:00 14:00:[address] [facility] 2020-01-23 2020-01-23 [facility] [id number] Common 13:00:00 13:00:[address] [facility] 2020-01-02 2020-01-02 [facility] [id number] Common 15:48:00 15:48:[address] [facility] 2019-10-10 2019-10-10 [facility] [id number] Common 14:09:00 14:09:[address] [facility] 2019-06-23 2019-06-23 [facility] [id number] Common 16:20:00 16:20:[address] [facility] 2019-05-19 2019-05-19 [facility] [id number] Common 10:55:00 10:55:[address] [facility] 2019-04-01 2019-04-01 [facility] [id number] Common 16:27:00 16:27:[address] [facility] 2019-04-01 2019-04-01 [facility] [id number] Common 15:56:00 15:56:[address] [facility] 2019-04-01 2019-04-01 [facility] [id number] Common 10:41:00 10:41:[address] [facility] 2019-02-13 2019-02-13 [facility] [id number] Common 10:20:00 10:20:[address] [facility] 2019-02-10 2019-02-10 [facility] [id number] Common 16:38:00 16:38:[address] [facility] 2018-05-23 2018-05-23 [facility] [id number] Common 09:00:00 09:00:[address] [facility] 2018-04-15 2018-04-15 [facility] [id number] Common 11:00:00 11:00:[address] [facility] 2018-03-15 2018-03-15 [facility] [id number] Common 11:19:00 11:19:[address] [facility] 2018-02-21 2018-02-21 [facility] [id number] Common 10:45:00 10:45:[address] [facility] 2017-12-04 2017-12-04 [facility] [id number] Common 14:02:00 14:02:[address] [facility] 2017-11-21 2017-11-21 [facility] [id number] Common 15:15:00 15:15:[address] [facility] [facility] Results Test Description Test Time [...] ng/mLAmphetamine/ 1000 ng/mL MethamphetamineOxycodone 300 ng/mLURINALYSIS W/ [id number] 05:47:00 Test Item Value Reference Range Interpretation [...] 516) SOURCE(BEAKER) (test code = Urine, Voided 5266) BASIC METABOLIC [id number] 02:25:00 Test Item Value Reference Range Interpretation [...] PATIEN TS. CBC W/PLT COUNT & AUTO [id number] 02:17:00 Test Item Value Reference Range Interpretation [...] K/ L 0.00-0.20 (test code = 417) [id number] 20:56:00 Test Item Value Reference Range Interpretation Comments ETHANOL (BEAKER) (test code = 400) 259 mg/dL <=10 H BASIC METABOLIC [id number] 20:55:00 Test Item Value Reference Range Interpretation [...] TO CALCULA TE ESTIMATED GFR. HEPATIC FUNCTION [id number] 20:54:00 Test Item Value Reference Range Interpretation [...] 6-55 347) CBC W/PLT COUNT & AUTO [id number] 20:36:00 Test Item Value Reference Range Interpretation [...]
[2023-01-26] MEDS ORDERED: ONDANSETRON 4 MG/2 ML VIAL ONE (09:18)
[2023-01-26] MEDS ORDERED: FAMOTIDINE 20 MG/2 ML VIAL IV ONE (09:18)
[2023-01-26] MEDS ORDERED: NA CHLORIDE 0.9% 1,000 ML ONE (09:18)
[2023-01-26 09:27] LABS: Absolute Lymphocytes (CBC) 1.4 K/uL (0.7-4.9); Hematocrit 46.3 % (36.0-45.0); Lymphocytes % 14.6 % (15.3-44.8); MCV 97.8 fL (80-100); MPV 7.7 fL (7.6-11.3); Platelets 333 thou/uL (152-406); RBC Red Blood Cell Count 4.73 M/uL (3.86-4.86)
[2023-01-26 09:54] LABS: Albumin 3.8 g/dL (3.4-5.0); Bilirubin Total 0.7 mg/dL (0.2-1.0); Protein, Total 7.8 g/dL (6.4-8.2)
[2023-01-26] MEDS ORDERED: CYCLOBENZAPRINE 10 MG TAB ONE (09:57)
--- NOTE | 2023-01-26 10:05 | RAD REPORT ---
EXAM DESCRIPTION: CTAbdomen Pelvis W Contrast - 01/26/2023 9:29 am CLINICAL HISTORY: Abdominal pain. rlq tenderness COMPARISON: Abdomen Pelvis W Contrast dated 03/31/2017; CT ABD PELVIS W CONTRAST dated 11/06/2014 TECHNIQUE: Biphasic CT imaging of the abdomen and pelvis was performed with 100 ml non-ionic IV cont rast. All CT scans are performed using dose optimization technique as appropriate and may include automated exposure control or mA/KV adjustment according to patient size. FINDINGS: Mild linear atelectasis is present in both lung bases.Small hiatal hernia. The liver, spleen, pancreas, adrenal glands and kidneys are within normal limits. There is a benign l eft renal cyst. No bowel obstruction, free air, free fluid or abscess. Prominent sigmoid diverticulosis coli without diverticulitis. Appendectomy. Significant stool is present throughout the colon. No evidence of signi ficant lymphadenopathy. 5.3 cm circumscribed fluid density collection is seen lateral to the left hip in the subcutaneous soft tissues. This may represent liquified hematoma prior trauma. Moderate lumbar degenerative changes. Mild anterior wedge compression deformity affects the L1 verteb ral body. IMPRESSION: Prominent sigmoid diverticulosis coli is seen with mild wall thickening. Early diverticu litis is a possibility. 5.3 cm circumscribed collection in the subcutaneous soft tissues adjacent to the left hip may be rela pao to liquified hematoma, although findings are nonspecific. Follow-up sonography in 3-6 months woul d be recommended.
--- NOTE | 2023-01-26 10:42 | EDPHYS ---
Physician Documentation [facility] Name: Heaven Bhatia Age: 62 yrs Sex: Female : 1960 Arrival Date: 01/26/2023 Time: 08:41 Bed 8 Private MD: ED Physician Jesus Hernández HPI: 01/26 09:25 This 62 yrs old Female presents to ER via EMS with complaints of Nausea/Vomiting. rt 09:25 Patient presents to the ED with abdominal pain, nausea, vomiting. This started about 4 rt AM. Patient states that she ran out of pain medications, has been drinking large amounts of vodka for the past several days to ease her back pain that is chronic. The patient denies hematemesis, hematochezia. Denies other acute complaints at this time. Symptoms are moderate severity, no other aggravating or alleviating factors.. Historical: - Allergies: 08:45 No Known Allergies; aa5 - PMHx: 08:45 chronic back pain; COPD; Hyperlipidemia; Hypertensive disorder; Seizure; ETOH Abuse; aa5 - PSHx: 08:45 Appendectomy; aa5 - Immunization history:: Adult Immunizations up to date. - Social history:: Smoking status: Patient denies any tobacco usage or history of. ROS: 09:25 Constitutional: Negative for fever, chills, and weight loss, Cardiovascular: Negative rt for chest pain, palpitations, and edema, Respiratory: Negative for shortness of breath, cough, wheezing, and pleuritic chest pain, MS/Extremity: Negative for injury and deformity, Skin: Negative for injury, rash, and discoloration, Neuro: Negative for headache, weakness, numbness, tingling, and seizure, Psych: Negative for depression, anxiety, suicide ideation, homicidal ideation, and hallucinations. 09:25 Abdomen/GI: Positive for abdominal pain, nausea and vomiting. Exam: 09:25 Constitutional: This is a well developed, well nourished patient who is awake, alert, rt and in no acute distress. Head/Face: Normocephalic, atraumatic. Chest/axilla: Normal chest wall appearance and motion. Nontender with no deformity. No lesions are appreciated. Cardiovascular: Regular rate and rhythm with a normal S1 and S2. No gallops, murmurs, or rubs. Normal PMI, no JVD. No pulse deficits. Respiratory: Lungs have equal breath sounds bilaterally, clear to auscultation and percussion. No rales, rhonchi or wheezes noted. No increased work of breathing, no retractions or nasal flaring. Skin: Warm, dry with normal turgor. Normal color with no rashes, no lesions, and no evidence of cellulitis. MS/ Extremity: Pulses equal, no cyanosis. Neurovascular intact. Full, normal range of motion. Neuro: Awake and alert, GCS 15, oriented to person, place, time, and situation. Cranial nerves II-XII grossly intact. Motor strength 5/5 in all extremities. Sensory grossly intact. Cerebellar exam normal. Normal gait. Psych: Awake, alert, with orientation to person, place and time. Behavior, mood, and affect are within normal limits. 09:25 Abdomen/GI: Tenderness diffusely, worse in the right lower quadrant with mild guarding, no rebound, distention. Vital Signs: 08:42 BP 114 / 87; Pulse 99; Resp 18 S; Temp 98.7(O); Pulse Ox 97% on R/A; aa5 08:46 BP 114 / 87; Pulse 101; Resp 17; Temp 97.8(O); Pulse Ox 95% on R/A; rs5 09:30 BP 130 / 103; Pulse 90; Resp 17; Pulse Ox 94% on R/A; rs5 10:32 BP 145 / 69; Pulse 90; Resp 18; Pulse Ox 95% on R/A; rs5 11:32 BP 161 / 104; Pulse 87; Resp 17; Pulse Ox 93% on R/A; rs5 MDM: 08:47 Patient medically screened. rt 10:42 Differential diagnosis: gastritis, pancreatitis, appendicitis. Data reviewed: vital rt signs, nurses notes, lab test result(s), radiologic studies. Consideration of Admission/Observation Escalation of care including admission/observation considered. Mild TINA noted, patient received a liter of fluids by EMS, will give second liter. Believe that this will be sufficient to treat the TINA. She does not require admission for this.. I considered the following discharge prescriptions or medication management in the emergency department Medications were administered in the Emergency Department. See MAR. Independent interpretation of the following test(s) in the Emergency Department CT Scan: My interpretation is Diverticulosis seen on interpretation of the CT scan images. Counseling: I had a detailed discussion with the patient and/or guardian regarding the historical points, exam findings, and any diagnostic results supporting the discharge/admit diagnosis, lab results, radiology results, Patient informed of diverticulosis. I do not suspect diverticulitis clinically given the labs, physical exam. Patient was also informed of findings of fluid collection about the left hip and instructed to follow-up in 3 to 6 months to have a sonogram performed.. Response to treatment: the patient's symptoms have markedly improved after treatment. 01/26 08:55 Order name: CBC with Diff; Complete Time: 09:44 rt 01/26 08:55 Order name: CMP; Complete Time: 10:10 rt 01/26 08:55 Order name: Lipase; Complete Time: 10:10 rt 01/26 08:55 Order name: CT Abd/Pelvis - IV Contrast Only; Complete Time: 10:10 rt 01/26 08:55 Order name: IV Saline Lock; Complete Time: 09:11 rt 01/26 08:55 Order name: Labs collected and sent; Complete Time: 09:11 rt Administered Medications: 09:16 Drug: NS 0.9% IV 1000 ml Route: IV; Rate: 1 bolus; Site: right antecubital; rs5 09:30 Follow up: No adverse reaction noted rs5 09:16 Drug: Famotidine IVP 20 mg Route: IVP; Site: right antecubital; rs5 09:30 Follow up: No adverse reaction noted rs5 09:16 Drug: Ondansetron IVP 4 mg Route: IVP; Site: right antecubital; rs5 09:30 Follow up: No adverse reaction noted rs5 09:49 Drug: Cyclobenzaprine PO 10 mg Route: PO; rs5 10:30 Follow up: No adverse reaction noted rs5 10:52 Drug: metoCLOPramide IVP 10 mg Route: IVP; Site: right antecubital; rs5 11:10 Follow up: No advere reaction noted rs5 10:52 Drug: diphenhydrAMINE IVP 25 mg Route: IVP; Site: right antecubital; rs5 11:10 Follow up: No adverse reaction noted rs5 11:18 Drug: NS 0.9% IV 1000 ml Route: IV; Rate: 1000 ml; Site: right antecubital; aa5 11:35 Follow up: No adverse reaction noted rs5 Disposition Summary: 01/26/23 10:41 Discharge Ordered Location: Home rt Problem: new rt Symptoms: have improved rt Condition: Stable rt Diagnosis - Nausea and vomiting rt - Alcohol abuse rt Followup: rt - With: Private Physician - When: 2 - 3 days - Reason: Discharge Instructions: - Discharge Summary Sheet rt - Nausea and Vomiting, Adult rt - Alcohol Abuse and Dependence Information, Adult rt Forms: - Medication Reconciliation Form rt - Thank You Letter rt - Antibiotic Education rt - Prescription Opioid Use rt - Patient Portal Instructions rt - Leadership Thank You Letter rt Prescriptions: - ondansetron 4 mg Oral Tablet,disintegrating - take 1 tablet by ORAL route every 6 hours; 15 tablet; Refills: 0, Product rt Selection Permitted - Cyclobenzaprine 10 mg Oral Tablet - take 1 tablet by ORAL route every 8 hours As needed; 15 tablet; Refills: 0, rt Product Selection Permitted Signatures: Dispatcher [employer] Yael Cruz RN RN aa5 Jesus Hernández MD MD rt Emanuel Gomez RN RN rs5 Corrections: (The following items were deleted from the chart) 08:46 08:45 PMHx: etoh abuse; aa5 aa5
--- NOTE | 2023-01-26 10:42 | ER ---
Nurse's Notes [facility] Name: Heaven Bhatia Age: 62 yrs Sex: Female : 1960 Arrival Date: 01/26/2023 Time: 08:41 Bed 8 Private MD: Diagnosis: Nausea and vomiting;Alcohol abuse Presentation: 01/26 08:42 Chief complaint: EMS states: Pt's friend called 911 after finding pt awake but not aa5 responding, upon arrival pt was awake and speaking c/o nausea and weakness. Pt states "I've been drinking vodka every day for the past 6 days because of my back pain". Pt reports nausea and vomiting today. 08:42 Coronavirus screen: vomiting. Ebola Screen: Patient denies travel to an Ebola-affected [facility] area in the 21 days before illness onset. Initial Sepsis Screen: Does the patient meet any 2 criteria? HR > 90 bpm. Does the patient have a suspected source of infection? No. Patient's initial sepsis screen is negative. Risk Assessment: Do you want to hurt yourself or someone else? Patient reports no desire to harm self or others. Onset of symptoms was January 26, 2023. 08:42 Acuity: MARILYNN 3 aa5 08:42 Method Of Arrival: EMS: [facility] aa 08:42 Care prior to arrival: Medication(s) given: zofran 4 mg, IV initiated. 18 GA, in the aa5 right antecubital area. Historical: - Allergies: 08:45 No Known Allergies; aa5 - PMHx: 08:45 chronic back pain; COPD; Hyperlipidemia; Hypertensive disorder; Seizure; ETOH Abuse; aa5 - PSHx: 08:45 Appendectomy; aa5 - Immunization history:: Adult Immunizations up to date. - Social history:: Smoking status: Patient denies any tobacco usage or history of. Screenin:46 [facility] ED Fall Risk Assessment (Adult) History of falling in the last 3 months, rs5 including since admission No falls in past 3 months (0 pts) Confusion or Disorientation No (0 pts) Intoxicated or Sedated Yes (3 pts) Impaired Gait No (0 pts) Mobility Assist Device Used Yes (1 pt) Altered Elimination No (0 pt) Score/Fall Risk Level 3 or more points = High Risk Oriented to surroundings, Maintained a safe environment, Educated pt \\T\\ family on fall prevention, incl call for assistance when getting out of bed, Assessed \\T\\ reinforced patient's understanding of fall precautions. 08:46 Abuse screen: Denies threats or abuse. Nutritional screening: No deficits noted. rs5 Tuberculosis screening: No symptoms or risk factors identified. Assessment: 08:46 General: Appears in no apparent distress. uncomfortable, Behavior is calm, cooperative, rs5 appropriate for age. 08:46 Pain: Complains of pain in lower back pain Pain radiates to tailbone Pain currently is rs5 9 out of 10 on a pain scale. Quality of pain is described as aching, sharp, Pain began pt states "I don't remember, this is a chronic problem that's been going on for a long time" Is continuous, Aggravated by repositioning. Pain: Complains of pain in epigastric area Pain currently is 4 out of 10 on a pain scale. Quality of pain is described as burning, aching, tender, Pain began 2-3 days ago. Is intermittent, Aggravated by vomiting. Neuro: Level of Consciousness is awake, alert, obeys commands, Oriented to person, place, time, situation. Cardiovascular: Heart tones S1 S2 present Rhythm is regular. Respiratory: Airway is patent Respiratory effort is even, unlabored, Respiratory pattern is regular, symmetrical, Breath sounds are diminished bilaterally. GI: Abdomen is round non-distended, Bowel sounds present X 4 quads. Abd is soft Abdomen is tender to palpation in mid-epigastric area Reports upper abdominal pain, nausea, vomiting, Patient currently denies diarrhea. : No signs and/or symptoms were reported regarding the genitourinary system. EENT: No signs and/or symptoms were reported regarding the EENT system. Derm: Skin is pink, warm \\T\\ dry. Musculoskeletal: Range of motion: intact in all extremities. 09:30 Reassessment: Patient and/or family updated on plan of care and expected duration. Pain rs5 level reassessed. Patient is alert, oriented x 3, equal unlabored respirations, skin warm/dry/pink. Pt denies N/V. 09:30 General:. Pain: Complains of pain in lower back Pain radiates to radiates to tailbone rs5 Pain currently is 8 out of 10 on a pain scale. Quality of pain is described as aching, sharp, Pain began years ago. Provider notified. GI: Reports upper abdominal pain, 4/10 mid epigastric pain. Pt reports "I think it's because I've been throwing up a lot these past few days.". 10:30 Reassessment: Patient and/or family updated on plan of care and expected duration. Pain rs5 level reassessed. 11:27 Reassessment: Patient and/or family updated on plan of care and expected duration. Pain rs5 level reassessed. Awaiting fluids to be finished before patient can be discharged per MD orders. 12:05 Reassessment: Patient and/or family updated on plan of care and expected duration. Pain rs5 level reassessed. Patient is alert, oriented x 3, equal unlabored respirations, skin warm/dry/pink. Pt tore out her IV. States "I want to go home, I'm cold here." Pressure dressing applied, bleeding controlled. Pt up for discharge, provider notified. Vital Signs: 08:42 BP 114 / 87; Pulse 99; Resp 18 S; Temp 98.7(O); Pulse Ox 97% on R/A; aa5 08:46 BP 114 / 87; Pulse 101; Resp 17; Temp 97.8(O); Pulse Ox 95% on R/A; rs5 09:30 BP 130 / 103; Pulse 90; Resp 17; Pulse Ox 94% on R/A; rs5 10:32 BP 145 / 69; Pulse 90; Resp 18; Pulse Ox 95% on R/A; rs5 11:32 BP 161 / 104; Pulse 87; Resp 17; Pulse Ox 93% on R/A; rs5 ED Course: 08:42 Patient arrived in ED. iw 08:42 Arm band placed on. aa5 08:45 Jesus Hernández MD is Attending Physician. rt 08:46 Patient has correct armband on for positive identification. Bed in low position. Call rs5 light in reach. Side rails up X2. 08:46 Maintain EMS IV. Dressing intact. Good blood return noted. Site clean \\T\\ dry. Gauge \\T\\ rs 5 site: 18 gauge right AC. 08:50 Triage completed. aa5 09:31 CT Abd/Pelvis - IV Contrast Only In Process Unspecified. EDMS 09:44 Emanuel Gomez, RN is Primary Nurse. rs5 12:07 No provider procedures requiring assistance completed. IV discontinued, intact, rs5 bleeding controlled, No redness/swelling at site. Pressure dressing applied, pt tore out her IV. Administered Medications: 09:16 Drug: NS 0.9% IV 1000 ml Route: IV; Rate: 1 bolus; Site: right antecubital; rs5 09:30 Follow up: No adverse reaction noted rs5 09:16 Drug: Famotidine IVP 20 mg Route: IVP; Site: right antecubital; rs5 09:30 Follow up: No adverse reaction noted rs5 09:16 Drug: Ondansetron IVP 4 mg Route: IVP; Site: right antecubital; rs5 09:30 Follow up: No adverse reaction noted rs5 09:49 Drug: Cyclobenzaprine PO 10 mg Route: PO; rs5 10:30 Follow up: No adverse reaction noted rs5 10:52 Drug: metoCLOPramide IVP 10 mg Route: IVP; Site: right antecubital; rs5 11:10 Follow up: No advere reaction noted rs5 10:52 Drug: diphenhydrAMINE IVP 25 mg Route: IVP; Site: right antecubital; rs5 11:10 Follow up: No adverse reaction noted rs5 11:18 Drug: NS 0.9% IV 1000 ml Route: IV; Rate: 1000 ml; Site: right antecubital; aa5 11:35 Follow up: No adverse reaction noted rs5 Medication: 12:07 VIS not applicable for this client. rs5 Intake: Outcome: 10:41 Discharge ordered by MD. rt 12:07 Discharged to home via wheelchair. rs5 12:07 Condition: stable 12:07 Discharge instructions given to patient, Instructed on discharge instructions, follow up and referral plans. medication usage, Demonstrated understanding of instructions, follow-up care, medications, Prescriptions given X 2. 12:23 Patient left the ED. rs5 Signatures: Dispatcher [employer] EDMS Kristin Dixon RN RN iw Yael Hankins RN RN aa5 Jesus Hernández MD MD rt Emanuel Gomez RN RN rs5 Corrections: (The following items were deleted from the chart) 08:46 08:45 PMHx: etoh abuse; aa5 aa5 09:17 09:16 Famotidine IVP 20 mg IVP in left antecubital rs5 rs5 09:17 09:16 NS 0.9% IV 1000 ml IV at 1 bolus in left antecubital rs5 rs5 11:35 08:46 BP 114 / 87; Pulse 101bpm; Resp 17bpm; Pulse Ox 99% RA; Temp 97.8F Oral; rs5 rs5 11:35 09:30 BP 130 / 103; Pulse 90bpm; Resp 17bpm; Pulse Ox 99% RA; rs5 rs5 11:35 10:32 BP 145 / 69; Pulse 90bpm; Resp 18bpm; Pulse Ox 99% RA; rs5 rs5 11:35 11:32 BP 161 / 104; Pulse 87bpm; Resp 17bpm; Pulse Ox 99% RA; rs5 rs5 12:07 12:05 Reassessment: Patient and/or family updated on plan of care and expected rs5 duration. Pain level reassessed. Patient is alert, oriented x 3, equal unlabored respirations, skin warm/dry/pink. Pt tore out her IV. States "I want to go home, I'm cold here." Pressure dressing applied, bleeding controlled. rs5 12: 12:20 Discharged to home via wheelchair, rs5 rs5 12: 12:20 Condition: stable rs5 rs5 12: 12:20 Discharge instructions given to patient, Instructed on discharge instructions, rs5 follow up and referral plans. medication usage, Demonstrated understanding of instructions, follow-up care, medications, Prescriptions given X 2, rs5
[2023-01-26] MEDS ORDERED: METOCLOPRAMIDE 10 MG/2mL INJ ONE (10:54)
[2023-01-26] MEDS ORDERED: DIPHENHYDRAMINE 50 MG/ML VIAL ONE (10:54)
[2023-01-26 12:30] VITALS: TEMP 97.8
[2023-01-26 12:34] VITALS: BP 161/104; O2SAT 93
== END 2023-01-26 12:23 | disposition home or self-care (01) ==
LOC: ER 08:41
DX: F10.10 Alcohol abuse, uncomplicated (principal); M54.50 Low back pain, unspecified; R53.1 Weakness; R10.9 Unspecified abdominal pain; I10 Essential (primary) hypertension
CPT/HCPCS: 85025; 36415; 83690; 80053; 74177; 96375; 96374; 99284; Q9967; J2765; J1200; J2405; J7030

== ENCOUNTER → 2023-08-13 | Emergency (ER) | payer OTHER ==
[~2023-08-13] MED LIST: FOLIC ACID 5 MG/ML VIAL ONE; LORAZEPAM 1 MG TABLET ONE; MULTIVITAMINS 10 ML VIAL (INJ) IV ONE; NA CHLORIDE 0.9% 1,000 ML ONE; POTASSIUM 25 MEQ EFFERV TAB ONE; THIAMINE 200 MG/2 ML INJ ONE
[2023-08-13 23:44] LABS: Protime INR 0.88
[2023-08-13 23:45] LABS: Absolute Eosinophils 0.1 K/uL (0-0.5); Absolute Lymphocytes (CBC) 1.7 K/uL (0.7-4.9); Basophils % 0.7 % (0-1.3); Eosinophils % 1.5 % (0-4.4); Hematocrit 41.3 % (36.0-45.0); Hemoglobin 14.2 g/dL (12.0-15.0); Lymphocytes % 27.6 % (15.3-44.8); MCV 98.4 fL (80-100); MPV 7.5 fL (7.6-11.3); Platelets 212 thou/uL (152-406); RBC Red Blood Cell Count 4.19 M/uL (3.86-4.86)
[2023-08-14 00:01] LABS: ALT/SGPT 32 U/L (13-56); AST/SGOT 33 U/L (15-37); Albumin 3.4 g/dL (3.4-5.0); Albumin/Globulin Ratio 0.9 (1.1-1.8); Alkaline Phosphatase 57 U/L (45-117); Anion Gap 13.3 mEq/L (5.0-15.0); BUN Blood Urea Nitrogen 27 mg/dL (7-18); Bicarbonate 25 mEq/L (21-32); Bilirubin Direct 0.2 mg/dL (0-0.2); Bilirubin Indirect, Calculated 0.2 mg/dL (0.2-0.8); Bilirubin Total 0.4 mg/dL (0.2-1.0); Globulin 3.9 g/dL (2.3-3.5); Glomerular Filtration Rate 41 ml/min (=/>90); Glucose Level 87 mg/dL (74-106); Potassium 3.3 mEq/L (3.5-5.1); Protein, Total 7.3 g/dL (6.4-8.2); Sodium Level 131 mEq/L (136-145)
[2023-08-14 04:28] LABS: Thyroid Stimulating Hormone 0.731 uIU/mL (0.358-3.740)
--- NOTE | 2023-08-14 05:09 | EDPHYS ---
Physician Documentation [facility] Name: Heaven Bhatia Age: 62 yrs Sex: Female : 1960 Arrival Date: 08/13/2023 Time: 21:41 Bed 17 Private MD: ED Physician Hussain Orosco HPI: 08/12 21:50 This 62 yrs old Female presents to ER via Unassigned with complaints of sp4 Suicidal Ideation. 08/13 05:02 62-year-old female presents with acute alcohol intoxication and the police escort. . sp4 05:03 Patient has ordered food from [employer] and she has reported to the sp4 information delivery analyst that she wanted to . production officer was dispatched to collect the patient and he has brought her here for evaluation. . Historical: - PMHx: 08/12 21:51 chronic back pain; etoh abuse; etoh abuse; Hyperlipidemia; Hyperlipidemia; Hypertensive kd3 disorder; Hypertensive disorder; Seizure; COPD; - PSHx: 21:51 Appendectomy; kd3 - Immunization history:: Adult Immunizations up to date. - Social history:: Smoking status: Patient reports the use of cigarette tobacco products, smokes one pack cigarettes per day. - Family history:: not pertinent. ROS: 08/13 05:03 Constitutional: Negative for fever, chills, and weight loss, Psych: Positive for sp4 moderate alcohol intoxication All other systems are negative, Exam: 04:56 ECG was reviewed by the Attending Physician. EKG at 2246, normal sinus rhythm with sp4 left bundle branch block at the rate of 75. Otherwise normal. Negative [place] based on the [place] criteria 05:03 Constitutional: This is a well developed, well nourished patient who is awake, alert, sp4 intoxicated appearing and disheveled Head/Face: Normocephalic, atraumatic. Eyes: Pupils equal round and reactive to light, extra-ocular motions intact. Lids and lashes normal. Conjunctiva and sclera are not injected. Cornea within normal limits. Periorbital areas with no swelling, redness, or edema. ENT: Nares patent. No nasal discharge, no septal abnormalities noted. Tympanic membranes are normal and external auditory canals are clear. Oropharynx with no redness, swelling, or masses, exudates, or evidence of obstruction, uvula midline. Mucous membranes moist. Neck: Trachea midline, no thyromegaly or masses palpated, and no cervical lymphadenopathy. Supple, full range of motion without nuchal rigidity, or vertebral point tenderness. Chest/axilla: Normal chest wall appearance and motion. Nontender with no deformity. No lesions are appreciated. Cardiovascular: Regular rate and rhythm with a normal S1 and S2. No gallops, murmurs, or rubs. Normal PMI, no JVD. No pulse deficits. Respiratory: Lungs have equal breath sounds bilaterally, clear to auscultation and percussion. No rales, rhonchi or wheezes noted. No increased work of breathing, no retractions or nasal flaring. Abdomen/GI: Soft, with normal bowel sounds. No distension or tympany. No guarding or rebound. No evidence of tenderness throughout. Back: No spinal tenderness. No costovertebral tenderness. Skin: Warm, dry with normal turgor. Normal color with no rashes, no lesions, and no evidence of cellulitis. MS/ Extremity: Pulses equal, no cyanosis. Neurovascular intact. Full, normal range of motion. Neuro: Awake and alert, GCS 14, moderate to heavy alcohol intoxication exam is limited, moves all extremities, able to ambulate unassisted. Psych: Awake, alert, with orientation to person, patient is intoxicated heavily and this limits examination. Vital Signs: 08/12 21:46 BP 102 / 63; Pulse 81; Resp 16; Temp 98.2(O); Pulse Ox 98% on R/A; Weight 55.34 kg; kd3 Height 5 ft. 2 in. ; 08/13 05:48 BP 126 / 87; Pulse 83; Resp 16; Temp 98.6(TE); Pulse Ox 98% on R/A; Pain 4/10; km8 08/12 21:46 Body Mass Index 22.31 (55.34 kg, 157.48 cm) kd3 08/13 05:48 Pain Scale: Adult km8 Lanie Coma Score: 08/12 22:23 Eye Response: spontaneous(4). Motor Response: obeys commands(6). Verbal Response: km8 oriented(5). Total: 15. MDM: 21:55 Patient medically screened. sp4 08/13 05:03 Differential diagnosis: drug withdrawal. acute psychotic break, depression, psychosis sp4 secondary to non-compliance, Alcohol abuse with Intoxication. Data reviewed: vital signs, nurses notes, old medical records, lab test result(s), EKG. Consideration of Admission/Observation Escalation of care including admission/observation considered. ED course: Patient managed to get some sleep in the emergency room after p.o. Ativan. Patient was given IV banana bag. Patient has mild hypokalemia she was given p.o. potassium. After patient slept and her alcohol level decreased she reports that she is not suicidal and she does not want to cause self-harm. Patient denied homicidal or suicidal ideation. She reports that she would like to be discharged home. At this time we have no grounds to commit patient against her will.. 08/12 21:55 Order name: Acetaminophen [facility] 08/12 21:55 Order name: Basic Metabolic Panel [facility] 08/12 21:55 Order name: CBC with Diff [facility] 08/12 21:55 Order name: ETOH Level [facility] 08/12 21:55 Order name: Hepatic Function [facility] 08/12 21:55 Order name: PT-INR [facility] 08/12 21:55 Order name: Ptt, Activated [facility] 08/12 21:55 Order name: Salicylate [facility] 08/12 23:44 Order name: Protime (+INR); Complete Time: 00:35 EDMS 08/12 23:44 Order name: PTT, Activated Partial Thromb; Complete Time: 00:35 EDHI 08/12 23:46 Order name: CBC with Automated Diff; Complete Time: 00:35 EDHI 08/12 23:55 Order name: Salicylates Level; Complete Time: 00:35 EDHI 08/13 00:01 Order name: Alcohol Serum/Plasma; Complete Time: 00:35 EDMS 08/13 00:02 Order name: Basic Metabolic Panel; Complete Time: 00:35 EDMS 08/13 00:02 Order name: Liver (Hepatic) Function; Complete Time: 00:35 EDMS 08/13 00:02 Order name: Acetaminophen Level; Complete Time: 00:35 EDHI 08/13 00:36 Order name: TSH 4 08/13 00:36 Order name: T4 Free 4 08/13 00:49 Order name: Alcohol Level [facility] 08/13 04:21 Order name: Alcohol Serum/Plasma; Complete Time: 04:55 EDMS 08/13 04:28 Order name: T4 Free; Complete Time: 04:55 EDMS 08/13 04:28 Order name: Thyroid Stimulating Hormone; Complete Time: 04:55 EDMS 08/12 21:55 Order name: EKG; Complete Time: 17:12 sp4 08/12 21:55 Order name: EKG - Nurse/Tech; Complete Time: 23:59 sp4 08/12 21:55 Order name: IV Saline Lock; Complete Time: 23:59 sp4 08/12 21:55 Order name: Labs collected and sent; Complete Time: 23:59 sp4 08/12 21:55 Order name: Suicide Precautions; Complete Time: 22:01 sp4 08/12 21:55 Order name: Suicide Screening ([place]); Complete Time: 22:01 sp4 EC:56 Rate is 75 beats/min. Rhythm is regular, Normal Sinus Rhythm. QRS [place] is Normal. [place] sp4 interval is normal. QRS interval is prolonged. No ST changes noted. Clinical impression: No evidence of ischemia. Interpreted by me. Reviewed by me. Administered Medications: 08/12 22:40 Drug: LORazepam PO 2 mg PO once Route: PO; [facility] 23:45 Follow up: Response: No adverse reaction; Anxiety decreased [facility] 08/13 00:20 Drug: Banana Bag - (Multivitamin IV 1 amp, NS 0.9% IV 1000 ml, Thiamine IV 100 mg, kd4 foLIC Acid IVPB 1 mg) IV at calculated rate once Route: IV; Rate: calculated rate; Site: right antecubital; 05:26 Follow up: Response: No adverse reaction; IV Status: Completed infusion; IV Intake: km8 1000ml 05:25 Drug: Potassium Chloride PO 40 mEq PO once Route: PO; km 05:38 Follow up: Response: Medication administered at discharge. km8 Disposition Summary: 08/14/23 05:08 Discharge Ordered Notes: Location: Home sp4 Problem: new sp4 Symptoms: have improved sp4 Condition: Stable sp4 Diagnosis - Alcohol dependence with intoxication sp4 - Acute hypokalemia, sp4 Followup: sp4 - With: Nathanael Walsh MD - When: 7 - 10 days - Reason: Recheck today's complaints Discharge Instructions: - Discharge Summary Sheet sp4 - Alcohol Abuse and Dependence Information, Adult sp4 Forms: - Patient Portal Instructions sp4 Signatures: Dispatcher [employer] Steffi Jauregui, RN RN kd3 Hussain Orosco MD MD sp4 Radha Christopher RN RN km8 Rex Ellis RN RN kd4
--- NOTE | 2023-08-14 05:09 | ER ---
Nurse's Notes 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 Jose Antonio ESTES arrived on the scene and pt appeared to be intoxicated Pt is independently ambulatory and states that she "just wants to ". Jose Antonio ESTES remains with the patient until the patient can be placed in a room. Pt placed in chairs within view of the nurses station due to ED saturation. Coronavirus screen: Vaccine status: unknown. Ebola Screen: No symptoms or risks identified at this time. Initial Sepsis Screen: Does the patient meet any 2 criteria? No. Patient's initial sepsis screen is negative. Does the patient have a suspected source of infection? No. Patient's initial sepsis screen is negative. Risk Assessment: Do you want to hurt yourself or someone else? Patient reports desire/thoughts of hurting themselves or someone else. Provider notified. Onset of symptoms was August 13, 2023. 21:46 Method Of Arrival: Law Enforcement: Jose Antonio ESTES kd3 21:46 Acuity: MARILYNN 2 kd3 Triage Assessment: 21:51 General: Appears in no apparent distress. Behavior is calm, cooperative, Smells of kd3 alcohol. Pain: Denies pain. Historical: - PMHx: 21:51 chronic back pain; etoh abuse; etoh abuse; Hyperlipidemia; Hyperlipidemia; Hypertensive kd3 disorder; Hypertensive disorder; Seizure; COPD; - PSHx: 21:51 Appendectomy; kd3 - Immunization history:: Adult Immunizations up to date. - Social history:: Smoking status: Patient reports the use of cigarette tobacco products, smokes one pack cigarettes per day. - Family history:: not pertinent. Screenin:52 [facility] ED Fall Risk Assessment (Adult) History of falling in the last 3 months, kd3 including since admission No falls in past 3 months (0 pts) Confusion or Disorientation No (0 pts) Intoxicated or Sedated Yes (3 pts) Impaired Gait No (0 pts) Mobility Assist Device Used No (0 pt) Altered Elimination No (0 pt) Score/Fall Risk Level 3 or more points = High Risk Maintained a safe environment, Educated pt \\T\\ family on fall prevention, incl call for assistance when getting out of bed, Assessed \\T\\ reinforced patient's understanding of fall precautions, Provided non-skid footwear, Hourly rounding (assess needs \\T\\ fall precautionary measures) done, Used gait belt as appropriate Implemented a Fall Risk Plan of Care. Abuse screen: Denies threats or abuse. Denies injuries from another. Nutritional screening: No deficits noted. Tuberculosis screening: No symptoms or risk factors identified. Assessment: 22:00 General: see triage assessment . kd3 22:23 General: Appears in no apparent distress. comfortable, Behavior is calm, cooperative, km8 appropriate for age. Pain: Denies pain. Neuro: Level of Consciousness is awake, alert, obeys commands, Oriented to person, place, time, situation. Cardiovascular: Denies chest pain, shortness of breath, Patient's skin is warm and dry. Respiratory: Airway is patent Respiratory effort is even, unlabored, Respiratory pattern is regular, symmetrical. GI: No signs and/or symptoms were reported involving the gastrointestinal system. : No signs and/or symptoms were reported regarding the genitourinary system. EENT: No signs and/or symptoms were reported regarding the EENT system. Derm: No signs and/or symptoms reported regarding the dermatologic system. Skin is intact, Skin is dry, Skin is pink, warm \\T\\ dry. normal, Skin temperature is warm. Musculoskeletal: No signs and/or symptoms reported regarding the musculoskeletal system. Range of motion: intact in all extremities. 23:00 Reassessment: Patient appears in no apparent distress at this time. No changes from km8 previously documented assessment. Patient and/or family updated on plan of care and expected duration. Pain level reassessed. Patient is alert, oriented x 3, equal unlabored respirations, skin warm/dry/pink. 08/13 00:00 Reassessment: Patient appears in no apparent distress at this time. No changes from km8 previously documented assessment. Patient and/or family updated on plan of care and expected duration. Pain level reassessed. Patient is alert, oriented x 3, equal unlabored respirations, skin warm/dry/pink. 01:00 Reassessment: Patient appears in no apparent distress at this time. No changes from km8 previously documented assessment. Patient and/or family updated on plan of care and expected duration. Pain level reassessed. Patient is alert, oriented x 3, equal unlabored respirations, skin warm/dry/pink. 02:00 Reassessment: Patient appears in no apparent distress at this time. pt sleeping at this km8 time. 02:47 Reassessment: Patient and/or family updated on plan of care and expected duration. Pain kd4 level reassessed. Reassessment: PATIENT IN BED SLEEPING, NAD NOTED. General: Appears comfortable. 03:26 Reassessment: Patient appears in no apparent distress at this time. No changes from km8 previously documented assessment. 04:00 Reassessment: Patient appears in no apparent distress at this time. No changes from km8 previously documented assessment. 05:00 Reassessment: Patient appears in no apparent distress at this time. No changes from km8 previously documented assessment. Patient and/or family updated on plan of care and expected duration. Pain level reassessed. Patient is alert, oriented x 3, equal unlabored respirations, skin warm/dry/pink. Psych: 08/12 21:57 Wallace Suicide Severity Screening: In the past month, have you wished you were kd3 or wished you could go to sleep and not wake up? Patient responds "yes." "In the past month, have you actually had any thoughts of killing yourself?" Patient responds "yes." "In your lifetime, have you ever done anything, started to do anything, or prepared to do anything to end your life?" Patient responds "yes.". Subjective: Patient's mood is elevated, Having thoughts of suicide. Denies suicidal plan. Objective: Patient is cooperative, restless, ETOH Speech is loud, rambling, Affect is appropriate. Safety Checks: Pt has been placed in a hallway bed/chair. No visitors are present at this time. [facility] remains with the patient. Patient uses of liquor, daily. Last use was 1 hours ago. Patient does not have a history of DTs. Commitment: Patient will be an involuntary commitment. 22:23 Interventions: Removed personal items and placed in bag. Searched person for dangerous km8 items. Belonging list filled out. placed in paper scrubs. 22:23 Safety Checks: Personal items have been removed. Door is open. PD present. km8 Vital Signs: 21:46 BP 102 / 63; Pulse 81; Resp 16; Temp 98.2(O); Pulse Ox 98% on R/A; Weight 55.34 kg; kd3 Height 5 ft. 2 in. ; 08/13 05:48 BP 126 / 87; Pulse 83; Resp 16; Temp 98.6(TE); Pulse Ox 98% on R/A; Pain 4/10; km8 08/12 21:46 Body Mass Index 22.31 (55.34 kg, 157.48 cm) kd3 08/13 05:48 Pain Scale: Adult km8 Coker Coma Score: 08/12 22:23 Eye Response: spontaneous(4). Motor Response: obeys commands(6). Verbal Response: km8 oriented(5). Total: 15. ED Course: 21:46 Patient arrived in ED. lg3 21:50 Hussain Orosco MD is Attending Physician. sp4 21:51 Triage completed. kd3 21:52 Arm band placed on right wrist. kd3 21:52 Patient has correct armband on for positive identification. suicide precautions. kd3 Provided Education on: Suicide precautions, ED SI policy and procedures, BEATRIZ. 21:52 No provider procedures requiring assistance completed. kd3 21:54 Safety Checks: Personal items have been removed. The door is open or patient has been kd3 placed in a hallway bed/chair. A family member and/or friend is present and encouraged to stay. Sitter present at this time. 21:54 Patient is placed in psych hold. kd3 22:01 Demi Murphy, RN is Primary Nurse. lg3 22:23 Safety Checks: Personal items have been removed. The door is open or patient has been km8 placed in a hallway bed/chair. A family member and/or friend is present and encouraged to stay. PD at bedside Sitter present at this time. 23:00 Safety Checks: Personal items have been removed. The door is open or patient has been km8 placed in a hallway bed/chair. A family member and/or friend is present and encouraged to stay. PD at bedside Sitter present at this time. 08/13 00:00 Safety Checks: Personal items have been removed. The door is open or patient has been km8 placed in a hallway bed/chair. There are no family/friend visitors at this time Sitter present at this time. 01:00 Safety Checks: Personal items have been removed. The door is open or patient has been km8 placed in a hallway bed/chair. There are no family/friend visitors at this time Sitter present at this time. 02:00 Safety Checks: Personal items have been removed. The door is open or patient has been km8 placed in a hallway bed/chair. There are no family/friend visitors at this time Sitter present at this time. 03:00 Safety Checks: Personal items have been removed. The door is open or patient has been km8 placed in a hallway bed/chair. There are no family/friend visitors at this time Sitter present at this time. 04:00 Safety Checks: Personal items have been removed. The door is open or patient has been km8 placed in a hallway bed/chair. There are no family/friend visitors at this time Sitter present at this time. 05:00 Safety Checks: Personal items have been removed. The door is open or patient has been km8 placed in a hallway bed/chair. There are no family/friend visitors at this time Sitter present at this time. 05:08 Nathanael Walsh MD is Referral Physician. sp4 05:30 IV discontinued, intact, bleeding controlled, No redness/swelling at site. Pressure km8 dressing applied. Administered Medications: 08/12 22:40 Drug: LORazepam PO 2 mg PO once Route: PO; km8 23:45 Follow up: Response: No adverse reaction; Anxiety decreased [facility] 08/13 00:20 Drug: Banana Bag - (Multivitamin IV 1 amp, NS 0.9% IV 1000 ml, Thiamine IV 100 mg, kd4 foLIC Acid IVPB 1 mg) IV at calculated rate once Route: IV; Rate: calculated rate; Site: right antecubital; 05:26 Follow up: Response: No adverse reaction; IV Status: Completed infusion; IV Intake: km8 1000ml 05:25 Drug: Potassium Chloride PO 40 mEq PO once Route: PO; km8 05:38 Follow up: Response: Medication administered at discharge. [facility] Medication: 02:09 VIS not applicable for this client. km8 Intake: 05:26 IV: 1000ml; Total: 1000ml. km8 Outcome: 05:08 Discharge ordered by MD. flower 05:50 Discharged to home [facility] km8 05:50 Condition: good 05:50 Discharge instructions given to patient, Instructed on discharge instructions, follow up and referral plans. crisis intervention teaching Demonstrated understanding of instructions, follow-up care, crisis intervention teaching 05:57 Patient left the ED. km8 Signatures: Demi Murphy, RN RN lg3 Steffi Olivia, RN RN kd3 Hussain Orosco MD MD sp4 Radha Christopher RN RN km8 Rex Ellis RN RN kd4 Corrections: (The following items were deleted from the chart) 08/12 21:52 21:46 BP 102 / 63; Pulse 122bpm; Resp 16bpm; Pulse Ox 98% RA; Temp 98.2F Oral; 55.34 kd3 kg; Height 5 ft. 2 in.; BMI: 22.3; kd3
[2023-08-14 06:05] VITALS: BP 102/63; TEMP 98.2; O2SAT 98
== END ==
LOC: ER 21:41
DX: F10.229 Alcohol dependence with intoxication, unspecified (principal); E87.6 Hypokalemia; I10 Essential (primary) hypertension; F17.210 Nicotine dependence, cigarettes, uncomplicated
CPT/HCPCS: 36415; 80048; 80076; 80143; 80179; 82077; 85025; 85610; 85730; 93005

== ENCOUNTER 2023-11-25 06:47 | Emergency (ER) | payer OTHER ==
[2023-11-25 07:48] LABS: Absolute Lymphocytes (CBC) 0.6 K/uL (0.7-4.9); Absolute Monocytes 0.7 K/uL (0.1-1.3); Absolute Neutrophil 5.9 K/uL (1.8-8.0); Basophils % 0.4 % (0-1.3); Eosinophils % 0.4 % (0-4.4); Hematocrit 42.7 % (36.0-45.0); Hemoglobin 14.7 g/dL (12.0-15.0); Lymphocytes % 8.3 % (15.3-44.8); MCH 34.7 pg (27.0-35.0); MCHC 34.4 g/dL (32.0-36.0); MCV 100.7 fL (80-100); MPV 7.6 fL (7.6-11.3); Monocytes % 10.1 % (3.3-12.3); Neutrophils % 80.8 % (41.7-73.7); Platelets 227 thou/uL (152-406); RBC Red Blood Cell Count 4.24 M/uL (3.86-4.86); Red Cell Distribution Width 17.7 % (12.1-15.2)
[2023-11-25] MEDS ORDERED: HYDROCODONE/APAP 7.5/325 MG TAB ONE (07:52)
[2023-11-25 08:15] LABS: Albumin 3.9 g/dL (3.4-5.0); Albumin/Globulin Ratio 0.9 (1.1-1.8); Anion Gap 8.3 mEq/L (5.0-15.0); Bilirubin Direct 0.3 mg/dL (0-0.2); Bilirubin Indirect, Calculated 0.4 mg/dL (0.2-0.8); Bilirubin Total 0.7 mg/dL (0.2-1.0); Globulin 4.3 g/dL (2.3-3.5); Magnesium 1.9 mg/dL (1.6-2.4); Potassium 4.3 mEq/L (3.5-5.1); Protein, Total 8.2 g/dL (6.4-8.2); Troponin High Sensitivity 9.5 pg/mL (<58.9)
--- NOTE | 2023-11-25 09:08 | EDPHYS ---
Physician Documentation [facility] Name: Heaven Bhatia Age: 62 yrs Sex: Female : 1960 Arrival Date: 11/25/2023 Time: 06:47 Bed 20 Private MD: ED Physician Jesus Hernández HPI: 11/24 07:27 This 62 yrs old Female presents to ER via EMS with complaints of leg pain. rt 07:27 Patient presents to the ED with bilateral leg pain for the past 3 days. Patient states rt that she is not able to walk due to the. Denies fall, trauma. Denies other acute complaints at this time, symptoms are moderate in severity, no other aggravating or alleviating factors.. Historical: - PMHx: :57 chronic back pain; COPD; etoh abuse; Hyperlipidemia; Hypertensive disorder; Seizure; jw7 - PSHx: 06:59 Appendectomy; jw7 - Immunization history:: Adult Immunizations unknown. - Infectious Disease History:: Denies. - Social history:: Smoking status: Patient reports the use of cigarette tobacco products, Patient uses alcohol. - Family history:: not pertinent. ROS: 07:27 Constitutional: Negative for fever, chills, and weight loss, Cardiovascular: Negative rt for chest pain, palpitations, and edema, Respiratory: Negative for shortness of breath, cough, wheezing, and pleuritic chest pain, Abdomen/GI: Negative for abdominal pain, nausea, vomiting, diarrhea, and constipation, Skin: Negative for injury, rash, and discoloration, Neuro: Negative for headache, weakness, numbness, tingling, and seizure, 07:27 MS/extremity: Positive for pain, Negative for injury or acute deformity, Exam: 07:27 Constitutional: This is a well developed, well nourished patient who is awake, alert, rt and in no acute distress. Head/Face: Normocephalic, atraumatic. Chest/axilla: Normal chest wall appearance and motion. Nontender with no deformity. No lesions are appreciated. Cardiovascular: Regular rate and rhythm with a normal S1 and S2. No gallops, murmurs, or rubs. Normal PMI, no JVD. No pulse deficits. Respiratory: Lungs have equal breath sounds bilaterally, clear to auscultation and percussion. No rales, rhonchi or wheezes noted. No increased work of breathing, no retractions or nasal flaring. Abdomen/GI: Soft, non-tender, with normal bowel sounds. No distension or tympany. No guarding or rebound. No evidence of tenderness throughout. Neuro: Awake and alert, GCS 15, oriented to person, place, time, and situation. Cranial nerves II-XII grossly intact. Motor strength 5/5 in all extremities. Sensory grossly intact. Cerebellar exam normal. Normal gait. 07:27 Musculoskeletal/extremity: Muscular tenderness to the thighs bilaterally, no focal bony tenderness, no deformities, no swelling. Pulses, motor, sensation intact. 07:34 ECG was reviewed by the Attending Physician. rt Vital Signs: 06:56 BP 161 / 77; Pulse 106; Resp 21 S; Temp 97.8(TE); Pulse Ox 97% on R/A; Weight 64.86 kg; jw7 Pain 0/10; 07:19 BP 159 / 97; Pulse 97; Resp 20; ll1 08:52 BP 162 / 81; Pulse 88; Resp 18; Pulse Ox 96% on R/A; ll1 08:55 Temp 97.2(TE); em1 06:56 Pain Scale: Adult jw7 MDM: 07:14 Patient medically screened. rt 09:08 Differential Diagnosis Musculoskeletal pain, rhabdo, electrolyte disturbance. Data rt reviewed: vital signs, nurses notes, lab test result(s). Consideration of Admission/Observation Escalation of care including admission/observation considered. Patient able to ambulate without difficulty in the ER, labs are benign, no indications for admission at this time. I considered the following discharge prescriptions or medication management in the emergency department Medications were administered in the Emergency Department. See MAR. Test considered but Not performed: X-ray: No trauma, deformity, bruising, x-rays not indicated. Counseling: I had a detailed discussion with the patient and/or guardian regarding the historical points, exam findings, and any diagnostic results supporting the discharge/admit diagnosis, lab results, the need for outpatient follow up, to return to the emergency department if symptoms worsen or persist or if there are any questions or concerns that arise at home. Response to treatment: the patient's symptoms have markedly improved after treatment. 11/24 07:19 Order name: Basic Metabolic Panel; Complete Time: 08:22 rt 06/23 07:19 Order name: CBC with Diff; Complete Time: 07:51 rt 11/24 07:19 Order name: LFT's; Complete Time: 08:22 rt 11/24 07:19 Order name: Magnesium; Complete Time: 08:22 rt 11/24 07:19 Order name: Troponin HS; Complete Time: 08:22 rt 11/24 07:19 Order name: CPK; Complete Time: 08:22 rt 11/24 07:21 Order name: ETOH Level; Complete Time: 08:22 rt 11/24 07:19 Order name: EKG; Complete Time: 07:20 rt 11/24 07:19 Order name: Cardiac monitoring; Complete Time: 07:42 rt 11/24 07:19 Order name: EKG - Nurse/Tech; Complete Time: 07:41 rt 11/24 07:19 Order name: IV Saline Lock; Complete Time: 07:42 rt 11/24 07:19 Order name: Labs collected and sent; Complete Time: 07:42 rt 11/24 07:19 Order name: O2 Per Protocol; Complete Time: 07:20 rt 11/24 07:19 Order name: O2 Sat Monitoring; Complete Time: 07:20 rt EC:34 Rate is 87 beats/min. Rhythm is regular, Likely normal sinus rhythm, artifact limits rt interpretation of rhythm with No ectopy. QRS [place] is Normal. QRS interval is normal. QT interval is normal. No Q waves. No ST changes noted. Administered Medications: 07:56 Drug: Hydrocodone-Acetaminophen PO (7.5 mg-325 mg) 1 tabs PO once {Note: RASS 0. pain ll1 9/10 with leg movement only.} Route: PO; 09:22 Follow up: Response: No adverse reaction; Pain is decreased; RASS: Alert and Calm (0) ll1 Disposition Summary: 11/25/23 09:08 Discharge Ordered Notes: Location: Home rt Problem: new rt Symptoms: have improved rt Condition: Stable rt Diagnosis - Pain in leg, unspecified rt Followup: rt - With: Private Physician - When: 2 - 3 days - Reason: Discharge Instructions: - Discharge Summary Sheet rt - Musculoskeletal Pain rt Forms: - Medication Reconciliation Form rt - Antibiotic Education rt - Prescription Opioid Use rt - Patient Portal Instructions rt - Leadership Thank You Letter rt Signatures: Dispatcher [employer] Estuardo Ramirez RN RN ll1 Waits, Debbie, RN RN jw7 Jesus Hernández MD MD rt
--- NOTE | 2023-11-25 09:08 | ER ---
Nurse's Notes [facility] Name: Heaven Bhatia Age: 62 yrs Sex: Female : 1960 Arrival Date: 11/25/2023 Time: 06:47 Bed 20 Private MD: Diagnosis: Pain in leg, unspecified Presentation: 11/24 06:56 Chief complaint: Patient states: "I don't remember why I'm here and I'm not having any jw7 pain at this time" EMS states: We were called out for bilateral leg pain. Coronavirus screen: At this time, the client does not indicate any symptoms associated with coronavirus-19. Ebola Screen: No symptoms or risks identified at this time. Initial Sepsis Screen: Does the patient meet any 2 criteria? No. Patient's initial sepsis screen is negative. Does the patient have a suspected source of infection? No. Patient's initial sepsis screen is negative. Risk Assessment: Do you want to hurt yourself or someone else? Patient reports no desire to harm self or others. Onset of symptoms was November 25, 2023. 06:56 Method Of Arrival: EMS: [facility] 7 06:56 Acuity: MARILYNN 3 jw7 Triage Assessment: 06:59 General: Appears in no apparent distress. uncomfortable, Behavior is calm, cooperative, jw7 quiet. Pain: Denies pain. EENT: No deficits noted. No signs and/or symptoms were reported regarding the EENT system. Neuro: Level of Consciousness is awake, alert, obeys commands, Oriented to pt refused to answer questions. Cardiovascular: Heart tones S1 S2 present Capillary refill < 3 seconds Clubbing of nail beds is absent JVD is absent Patient's skin is warm and dry. Respiratory: Airway is patent Trachea midline Respiratory effort is even, unlabored, Respiratory pattern is regular, symmetrical. GI: Abdomen is round non-distended, obese, Bowel sounds present X 4 quads. Abd is soft and non tender X 4 quads. : No deficits noted. No signs and/or symptoms were reported regarding the genitourinary system. Derm: Skin is fragile, Skin is dry, Skin is normal, Skin temperature is warm. Musculoskeletal: Circulation, motion, and sensation intact. Range of motion: intact in all extremities. Historical: - PMHx: 06:59 chronic back pain; COPD; etoh abuse; Hyperlipidemia; Hypertensive disorder; Seizure; jw7 - PSHx: 06:59 Appendectomy; jw7 - Immunization history:: Adult Immunizations unknown. - Infectious Disease History:: Denies. - Social history:: Smoking status: Patient reports the use of cigarette tobacco products, Patient uses alcohol. - Family history:: not pertinent. Screenin:36 [facility] ED Fall Risk Assessment (Adult) History of falling in the last 3 months, ll1 including since admission Yes- single mechanical fall (1 pt) Confusion or Disorientation No (0 pts) Intoxicated or Sedated Yes (3 pts) Impaired Gait Yes (1 pt) Mobility Assist Device Used Yes (1 pt) Altered Elimination No (0 pt) Score/Fall Risk Level 3 or more points = High Risk Oriented to surroundings, Maintained a safe environment, Hourly rounding (assess needs \\T\\ fall precautionary measures) done, Used ambulatory aids as needed (educated on \\T\\ assisted with). Abuse screen: Denies threats or abuse. Nutritional screening: No deficits noted. Tuberculosis screening: No symptoms or risk factors identified. Assessment: 07:16 Reassessment: Dr. Hernández at . ll1 07:35 General: Appears distressed, uncomfortable, Behavior is cooperative, appropriate for ll1 age, shaky. Pain: Complains of pain in right leg and left leg Pain currently is 0 out of 10 on a pain scale. at worst was 10 out of 10 on a pain scale. Quality of pain is described as aching, crampy, sharp, Pain began 2-3 days ago. Is episodic, Aggravated by exercise, increased activity, weight bearing. Musculoskeletal: pain with walking/moving Reports pain in right leg and left leg. 07:57 Reassessment: No changes from previously documented assessment. Patient and/or family ll1 updated on plan of care and expected duration. Pain level reassessed. Patient is alert, oriented x 3, equal unlabored respirations, skin warm/dry/pink. 08:50 Reassessment: No changes from previously documented assessment. Patient and/or family ll1 updated on plan of care and expected duration. Pain level reassessed. Patient is alert, oriented x 3, equal unlabored respirations, skin warm/dry/pink. 09:21 Reassessment: No changes from previously documented assessment. Patient and/or family ll1 updated on plan of care and expected duration. Pain level reassessed. Patient is alert, oriented x 3, equal unlabored respirations, skin warm/dry/pink. Vital Signs: 06:56 BP 161 / 77; Pulse 106; Resp 21 S; Temp 97.8(TE); Pulse Ox 97% on R/A; Weight 64.86 kg; jw7 Pain 0/10; 07:19 BP 159 / 97; Pulse 97; Resp 20; ll1 08:52 BP 162 / 81; Pulse 88; Resp 18; Pulse Ox 96% on R/A; ll1 08:55 Temp 97.2(TE); em1 06:56 Pain Scale: Adult jw7 ED Course: 06:55 Patient arrived in ED. jw7 06:56 Jesus Hernández MD is Attending Physician. rt 06:59 Triage completed. jw7 06:59 Arm band placed on. jw7 07:19 Estuardo Figueroa, RN is Primary Nurse. ll1 07:27 No provider procedures requiring assistance completed. Inserted saline lock: 22 gauge ll1 in right antecubital area, using aseptic technique. Blood collected. 07:30 Provided Education on: ER procedures and process. ll1 07:30 Initial lab(s) drawn, by me, sent to lab. EKG done. ll1 07:40 Patient has correct armband on for positive identification. Bed in low position. Call ll1 light in reach. Side rails up X2. Client placed on continuous cardiac and pulse oximetry monitoring. NIBP monitoring applied. 09:21 IV discontinued, intact, bleeding controlled, No redness/swelling at site. Pressure ll1 dressing applied. Administered Medications: 07:56 Drug: Hydrocodone-Acetaminophen PO (7.5 mg-325 mg) 1 tabs PO once {Note: RASS 0. pain ll1 9/10 with leg movement only.} Route: PO; 09:22 Follow up: Response: No adverse reaction; Pain is decreased; RASS: Alert and Calm (0) ll1 Medication: 07:41 VIS not applicable for this client. ll1 Outcome: 09:08 Discharge ordered by . rt 09:21 Discharged to home ambulatory, ll1 09:21 Condition: stable 09:21 Discharge instructions given to patient, Instructed on discharge instructions, follow up and referral plans. Demonstrated understanding of instructions, follow-up care, 09:22 Patient left the ED. ll1 Signatures: Mj Jacinto em1 Estuardo Figueroa RN RN ll1 Debbie Hardy RN RN jw7 Jesus Hernández MD MD rt Corrections: (The following items were deleted from the chart) 07:20 07:19 BP 159 / 97; Pulse 97bpm; ll1 ll1
[2023-11-25 10:00] VITALS: BP 162/81; TEMP 97.2; O2SAT 96
--- NOTE | 2023-11-26 13:06 | EKG ---
Test Date: 2023-11-25 Test Time: 07:29:12 Rv Detailer: ALLISON MEASUREMENT RESULTS: Intervals: Rate: 87 DE: QRSD: 120 QT: 408 QTc: 490 [place]: P: DE: QRS: 134 T: 42 INTERPRETIVE STATEMENTS: Atrial fibrillation Anteroseptal infarct, age undetermined Abnormal ECG Compared to ECG 08/13/2023 22:46:13 Myocardial infarct finding now present Sinus rhythm no longer present Left bundle-branch block no longer present Electronically Signed On 11-26-23 13:03:29 CDT by Toby Castanon
== END 2023-11-25 09:22 | disposition home or self-care (01) ==
LOC: ER 06:47
DX: M79.605 Pain in left leg (principal); M79.604 Pain in right leg
CPT/HCPCS: 36415; 80048; 80076; 82077; 82550; 83735; 84484; 85025; 93005; 99284

== ENCOUNTER 2023-12-04 22:45 | Emergency (ER) | payer OTHER ==
[2023-12-04] MEDS ORDERED: WATER FOR INJ,STERILE 10 ML ONE (23:00)
[2023-12-04] MEDS ORDERED: ZIPRASIDONE MESYLA 20 MG/VIAL IM ONE (23:00)
[2023-12-04 23:33] LABS: Absolute Basophils 0.1 K/uL (0-0.5); Absolute Eosinophils 0.1 K/uL (0-0.5); Absolute Lymphocytes (CBC) 1.9 K/uL (0.7-4.9); Absolute Monocytes 0.7 K/uL (0.1-1.3); Absolute Neutrophil 3.1 K/uL (1.8-8.0); Basophils % 0.9 % (0-1.3); Eosinophils % 2.5 % (0-4.4); Hematocrit 34.6 % (36.0-45.0); Hemoglobin 11.8 g/dL (12.0-15.0); Lymphocytes % 32.7 % (15.3-44.8); MCH 34.7 pg (27.0-35.0); MCHC 34.1 g/dL (32.0-36.0); MCV 101.7 fL (80-100); MPV 6.7 fL (7.6-11.3); Monocytes % 11.5 % (3.3-12.3); Neutrophils % 52.4 % (41.7-73.7); Nucleated Red Blood Cells % 0.1 % (0-0); Platelets 413 thou/uL (152-406); RBC Red Blood Cell Count 3.41 M/uL (3.86-4.86)
[2023-12-04 23:39] LABS: Anion Gap 9.9 mEq/L (5.0-15.0); Potassium 3.9 mEq/L (3.5-5.1)
[2023-12-05] MEDS ORDERED: LIDOCAINE 1% 20 ML MDV ONE (00:40)
[2023-12-05] MEDS ORDERED: THIAMINE 200 MG/2 ML INJ ONE (01:41)
[2023-12-05] MEDS ORDERED: MULTIVITAMINS 10 ML VIAL (INJ) IV ONE (01:41)
[2023-12-05] MEDS ORDERED: TDAP (DIPHTH,PERTUSS(ACELL),TET VAC) 0.5 ML VIAL IMVAC ONE (01:42)
[2023-12-05] MEDS ORDERED: FOLIC ACID 5 MG/ML VIAL ONE (01:42)
[2023-12-05] MEDS ORDERED: NA CHLORIDE 0.9% 1,000 ML ONE (01:42)
--- NOTE | 2023-12-05 04:52 | ER ---
Nurse's Notes [facility] Name: Heaven Bhatia Age: 62 yrs Sex: Female : 1960 Arrival Date: 12/04/2023 Time: 22:45 Bed 8 Private MD: Diagnosis: Laceration without foreign body of scalp;Alcohol abuse;Left lateral laceration, acute head injury, acute scalp laceration, poor hygiene, Presentation: 12/03 22:53 Chief complaint: EMS states: found pt in bathroom drinking and smoking with head to bm8 left side of head. Have been unable to locate exactly where it was due to clotting. 22:54 Coronavirus screen: At this time, the client does not indicate any symptoms associated bm8 with coronavirus-19. Ebola Screen: Patient negative for fever greater than or equal to 101.5 degrees Fahrenheit, and additional compatible Ebola Virus Disease symptoms Patient denies exposure to infectious person. Patient denies travel to an Ebola-affected area in the 21 days before illness onset. No symptoms or risks identified at this time. Initial Sepsis Screen: Does the patient meet any 2 criteria? No. Patient's initial sepsis screen is negative. Does the patient have a suspected source of infection? No. Patient's initial sepsis screen is negative. Risk Assessment: Do you want to hurt yourself or someone else? Patient reports no desire to harm self or others. Onset of symptoms is unknown. 22:54 Method Of Arrival: EMS: [facility] bm8 22:54 Acuity: MARILYNN 3 bm8 Triage Assessment: 22:55 General: Appears in no apparent distress. uncomfortable, Behavior is calm, cooperative, bm8 appropriate for age. Pain: Complains of pain in left frontal area and left temporal area. EENT: No deficits noted. No signs and/or symptoms were reported regarding the EENT system. Neuro: Level of Consciousness is awake, alert, confused, Oriented to person, place. Cardiovascular: Capillary refill < 3 seconds Patient's skin is warm and dry. Respiratory: Airway is patent Respiratory effort is even, unlabored, Respiratory pattern is regular, symmetrical. Injury Description: Laceration sustained to left frontal area, left side of forehead and left temporal area is at this time unable due to dried blood. Historical: - Allergies: :55 No Known Allergies; bm8 - Home Meds: 22:55 Unable to obtain [Active]; bm8 - PMHx: 22:55 chronic back pain; etoh abuse; COPD; Hyperlipidemia; Seizure; Hypertensive disorder; bm8 - PSHx: 22:55 Appendectomy; bm8 - Immunization history:: Adult Immunizations unknown. - Infectious Disease History:: Denies. - Social history:: Smoking status: Patient reports the use of cigarette tobacco products. Screenin:46 [facility] ED Fall Risk Assessment (Adult) History of falling in the last 3 months, bm8 including since admission Yes- single mechanical fall (1 pt) Confusion or Disorientation Yes (5 pts) Intoxicated or Sedated Yes (3 pts) Impaired Gait Yes (1 pt) Mobility Assist Device Used No (0 pt) Altered Elimination No (0 pt) Score/Fall Risk Level 3 or more points = High Risk Oriented to surroundings, Maintained a safe environment, Educated pt \T\ family on fall prevention, incl call for assistance when getting out of bed, Assessed \T\ reinforced patient's understanding of fall precautions, Provided non-skid footwear, Hourly rounding (assess needs \T\ fall precautionary measures) done, Used ambulatory aids as needed (educated on \T\ assisted with), Used gait belt as appropriate Implemented a Fall Risk Plan of Care, Apply high fall risk patient identification: yellow non skid footwear/ fall signage. Abuse screen: Denies threats or abuse. Nutritional screening: No deficits noted. Tuberculosis screening: No symptoms or risk factors identified. Assessment: 23:46 Reassessment: attmepted to [place] dried blood from PT's hair but was able. Used bm8 trimmers to remove the area that had all the dried blood and located small lac on forehead. Pt also has Lac to left eyebrow approx 2 inches long. large hematoma on right hip. made aware. General: Appears in no apparent distress. comfortable, unkempt, Behavior is cooperative, appropriate for age, Smells of urine and etoh.. Pain: Denies pain. Neuro: No deficits noted. Level of Consciousness is awake, alert, obeys commands, Oriented to person, place, Bailiff are equal bilaterally Moves all extremities. Full function Speech is normal. Cardiovascular: Denies chest pain, Capillary refill < 3 seconds Patient's skin is warm and dry. Respiratory: Airway is patent Respiratory effort is even, unlabored, Respiratory pattern is regular, symmetrical. Derm: Wound noted top of head and left eye. Musculoskeletal: Swelling present in right hip. 12/04 01:49 Reassessment: Patient appears in no apparent distress at this time. Patient and/or bm8 family updated on plan of care and expected duration. Pain level reassessed. Patient is alert, oriented x 3, equal unlabored respirations, skin warm/dry/pink. pt is resting with eyes closed breathing is even unlabored at this time. Awaiting stitches from Provider. 04:01 Reassessment: Patient appears in no apparent distress at this time. No changes from 8 previously documented assessment. Patient and/or family updated on plan of care and expected duration. Pain level reassessed. Patient is alert, oriented x 3, equal unlabored respirations, skin warm/dry/pink. Patient states symptoms have improved. 05:09 Reassessment: attempted to call [facility] and person to notify unsuccessfully. Decision made bm8 to leave pt had ride home. 06:30 Reassessment: Patient appears in no apparent distress at this time. Patient and/or jw7 family updated on plan of care and expected duration. Pain level reassessed. Patient is alert, oriented x 3, equal unlabored respirations, skin warm/dry/pink. Vital Signs: 12/03 22:54 BP 172 / 102; Pulse 108; Resp 20; Temp 98.1; Pulse Ox 95% on R/A; Pain 5/10; bm8 23:46 BP 154 / 92; Pulse 91; Resp 17; Temp 98.1; Pulse Ox 100% on 2 lpm NC; Pain 0/10; bm8 12/04 01:49 BP 139 / 83; Pulse 91; Resp 17; Temp 98.1; Pulse Ox 95% on 2 lpm NC; Pain 0/10; bm8 04:01 BP 153 / 87; Pulse 91; Resp 17; Temp 98.1; Pulse Ox 100% on 2 lpm NC; Pain 0/10; bm8 05:08 BP 145 / 67; Pulse 92; Resp 19; Temp 98.2; Pulse Ox 95% on R/A; Pain 0/10; bm8 06:30 BP 135 / 84; Pulse 90; Resp 18 S; Temp 98.3(O); Pulse Ox 97% on R/A; jw7 12/03 22:54 Pain Scale: Adult bm8 23:46 Pain Scale: Adult bm8 12/04 01:49 Pain Scale: Adult bm8 04:01 Pain Scale: Adult bm8 05:08 Pain Scale: Adult bm8 [place] Coma Score: 12/03 23:46 Eye Response: spontaneous(4). Motor Response: obeys commands(6). Verbal Response: bm8 oriented(5). Total: 15. 12/04 01:49 Eye Response: spontaneous(4). Motor Response: obeys commands(6). Verbal Response: bm8 oriented(5). Total: 15. 04:01 Eye Response: spontaneous(4). Motor Response: obeys commands(6). Verbal Response: bm8 oriented(5). Total: 15. 05:08 Eye Response: spontaneous(4). Motor Response: obeys commands(6). Verbal Response: bm8 oriented(5). Total: 15. ED Course: 12/03 22:52 Patient arrived in ED. bm8 22:54 Lupillo Mcdaniel, RN is Primary Nurse. bm8 22:55 Hussain Orosco MD is Attending Physician. sp4 22:55 Triage completed. bm8 22:55 Arm band placed on right wrist. bm8 23:18 Basic Metabolic Panel Sent. vk 23:19 CBC with Diff Sent. vk 23:19 Type And Screen Sent. vk 23:19 Alcohol Level Sent. vk 23:46 Patient has correct armband on for positive identification. Fall risk band placed. bm8 Placed in gown. Call light in reach. Side rails up X2. Client placed on continuous cardiac and pulse oximetry monitoring. NIBP monitoring applied. Pulse ox on. NIBP on. Door closed. Noise minimized. Lights dimmed. Warm blanket given. Verbal reassurance given. changed clothing. Cleaned of incontinence. Linen changed. fresh diaper applied to pt. One-on-one care X 45 minutes. 23:46 Initial lab(s) drawn, by ED staff, sent to lab. Maintain EMS IV. Dressing intact. Good bm8 blood return noted. Site clean \T\ dry. Gauge \T\ site: 18 rac. IV was discontinued by the patient. is intact, with fluids infusing freely, with good blood return, Flushed right antecubital with 5 ml normal saline. Oxygen administration via nasal cannula \T\ 2L/min Response to oxygen therapy: symptoms improved. 12/04 00:07 CT Head C Spine In Process Unspecified. EDMS 04:52 Assist provider with laceration repair on head and top of head and left side of bm8 forehead that was 2.5 cm. or less using sutures. Set up tray. Performed by Hussain Orosco MD Dressed with 4X4s, Kerlix, Patient tolerated well. IV discontinued, intact, bleeding controlled, No redness/swelling at site. Pressure dressing applied. 05:09 Provided Education on: post er care.. bm8 Administered Medications: 12/03 23:15 Drug: Geodon IM 20 mg IM once Route: IM; Site: left deltoid; jw7 12/04 01:49 Follow up: Response: No adverse reaction bm8 01:48 Drug: Banana Bag - (Multivitamin IV 1 amp, NS 0.9% IV 1000 ml, Thiamine IV 100 mg, bm8 foLIC Acid IVPB 1 mg) IV at calculated rate once Route: IV; Rate: calculated rate; Site: right antecubital; 04:56 Follow up: Response: No adverse reaction; IV Status: Completed infusion; IV Intake: bm8 1000ml 01:49 Drug: Boostrix Tdap IM 0.5 ml IM once; as a single dose Route: IM; Site: right vastus bm8 lateralis; 04:57 Follow up: Response: No adverse reaction bm8 04:52 Drug: Lidocaine Infiltration (1 %) 20 ml 20 ml Infiltration once; to bedside Volume: 20 jw7 ml; Route: Infiltration; 04:57 Follow up: Response: No adverse reaction bm8 Medication: 01:49 Vaccine Information Statement (VIS) provided today. Questions and/or concerns bm8 addressed. VIS edition date: January 07, 2021. Intake: 04:56 IV: 1000ml; Total: 1000ml. bm8 Outcome: 04:51 Discharge ordered by . sp4 05:07 Discharged to home via wheelchair, bm8 05:07 Condition: stable 05:07 Discharge instructions given to patient, Instructed on discharge instructions, follow up and referral plans. safety practices, Demonstrated understanding of instructions, follow-up care, medications, 06:31 Patient left the ED. jw7 Signatures: Dispatcher [employer] EDMS Waits, Debbie, RN RN jw7 Hussain Orosco MD MD sp4 Sofiya Weber Brad RN RN bm8
--- NOTE | 2023-12-05 04:52 | EDPHYS ---
Physician Documentation [facility] Name: Heaven Bhatia Age: 62 yrs Sex: Female : 1960 Arrival Date: 12/04/2023 Time: 22:45 Bed 8 Private MD: ED Physician Hussain Orosco HPI: 12/03 22:55 This 62 yrs old Female presents to ER via Unassigned with complaints of Head sp4 Injury Without LOC-Adult. Historical: - Allergies: 22:55 No Known Allergies; bm8 - Home Meds: 22:55 Unable to obtain [Active]; bm8 - PMHx: 22:55 chronic back pain; etoh abuse; COPD; Hyperlipidemia; Seizure; Hypertensive disorder; bm8 - PSHx: 22:55 Appendectomy; bm8 - Immunization history:: Adult Immunizations unknown. - Infectious Disease History:: Denies. - Social history:: Smoking status: Patient reports the use of cigarette tobacco products. Vital Signs: 22:54 BP 172 / 102; Pulse 108; Resp 20; Temp 98.1; Pulse Ox 95% on R/A; Pain 5/10; bm8 23:46 BP 154 / 92; Pulse 91; Resp 17; Temp 98.1; Pulse Ox 100% on 2 lpm NC; Pain 0/10; bm8 12/04 01:49 BP 139 / 83; Pulse 91; Resp 17; Temp 98.1; Pulse Ox 95% on 2 lpm NC; Pain 0/10; bm8 04:01 BP 153 / 87; Pulse 91; Resp 17; Temp 98.1; Pulse Ox 100% on 2 lpm NC; Pain 0/10; bm8 05:08 BP 145 / 67; Pulse 92; Resp 19; Temp 98.2; Pulse Ox 95% on R/A; Pain 0/10; bm8 06:30 BP 135 / 84; Pulse 90; Resp 18 S; Temp 98.3(O); Pulse Ox 97% on R/A; jw7 12/03 22:54 Pain Scale: Adult bm8 23:46 Pain Scale: Adult bm8 12/04 01:49 Pain Scale: Adult bm8 04:01 Pain Scale: Adult bm8 05:08 Pain Scale: Adult bm8 [place] Coma Score: 12/03 23:46 Eye Response: spontaneous(4). Motor Response: obeys commands(6). Verbal Response: bm8 oriented(5). Total: 15. 12/04 01:49 Eye Response: spontaneous(4). Motor Response: obeys commands(6). Verbal Response: bm8 oriented(5). Total: 15. 04:01 Eye Response: spontaneous(4). Motor Response: obeys commands(6). Verbal Response: bm8 oriented(5). Total: 15. 05:08 Eye Response: spontaneous(4). Motor Response: obeys commands(6). Verbal Response: bm8 oriented(5). Total: 15. MDM: 12/03 22:56 Patient medically screened. sp4 12/04 04:20 ED course: CLINICAL HISTORY: fall head injury COMPARISON: 01/06/2023. TECHNIQUE: CT HEAD sp4 AND CERVICAL SPINE WITHOUT CONTRAST on 12/04/2023 10:55 PM CDT This exam was performed according to our departmental dose-optimization program, which includes automated exposure control, adjustment of the mA and/or kV according to patient size and/or use of iterative reconstruction technique. FINDINGS: Brain: There is no acute hemorrhage, mass effect or midline shift. Paz-white differentiation is preserved. There is no hydrocephalus. There is no significant volume loss for age. The calvarium is intact. Orbits and globes are unremarkable. The paranasal sinuses are clear. Mastoid air cells are clear. Cervical Spine: There is no acute fracture. Alignment is anatomic. There is mild narrowing of essentially all of the cervical discs with sparing of C2-3. Vertebral body heights are preserved. Soft tissues are unremarkable. IMPRESSION: No acute postraumatic findings. . 12/03 22:55 Order name: Basic Metabolic Panel; Complete Time: 01:24 sp4 12/03 22:55 Order name: CBC with Diff; Complete Time: 01:24 sp4 12/03 22:55 Order name: Type And Screen; Complete Time: 01:24 sp4 12/03 22:56 Order name: Alcohol Level; Complete Time: 01:24 sp4 12/03 22:55 Order name: CT Head C Spine sp4 12/03 22:55 Order name: Labs collected and sent; Complete Time: 23:15 sp4 12/03 22:56 Order name: Dressing - Wound; Complete Time: 04:57 sp4 12/03 22:56 Order name: Gloves, Sterile; Complete Time: 04:52 sp4 12/03 22:56 Order name: Setup Suture Tray; Complete Time: 04:52 sp4 Administered Medications: 12/03 23:15 Drug: Geodon IM 20 mg IM once Route: IM; Site: left deltoid; jw7 12/04 01:49 Follow up: Response: No adverse reaction bm8 01:48 Drug: Banana Bag - (Multivitamin IV 1 amp, NS 0.9% IV 1000 ml, Thiamine IV 100 mg, bm8 foLIC Acid IVPB 1 mg) IV at calculated rate once Route: IV; Rate: calculated rate; Site: right antecubital; 04:56 Follow up: Response: No adverse reaction; IV Status: Completed infusion; IV Intake: bm8 1000ml 01:49 Drug: Boostrix Tdap IM 0.5 ml IM once; as a single dose Route: IM; Site: right vastus bm8 lateralis; 04:57 Follow up: Response: No adverse reaction bm8 04:52 Drug: Lidocaine Infiltration (1 %) 20 ml 20 ml Infiltration once; to bedside Volume: 20 jw7 ml; Route: Infiltration; 04:57 Follow up: Response: No adverse reaction bm8 Disposition Summary: 12/05/23 04:51 Discharge Ordered Notes: Location: Home sp4 Problem: new sp4 Symptoms: have improved sp4 Condition: Stable sp4 Diagnosis - Laceration without foreign body of scalp sp4 - Alcohol abuse sp4 - Left lateral laceration, acute head injury, acute scalp laceration, poor hygiene, sp4 Followup: sp4 - With: Private Physician - When: 10 - 14 days - Reason: Recheck today's complaints Discharge Instructions: - Discharge Summary Sheet sp4 - Laceration Care, Adult, Aych-ce-[id number] sp4 Forms: - Patient Portal Instructions sp4 Signatures: Dispatcher [employer] Debbie Blair RN RN jw7 Hussain Orosco MD MD sp4 Lupillo Mcdaniel RN RN bm8 Corrections: (The following items were deleted from the chart) 12/03 22:56 22:56 Head C Spine MPR Wo Con+CT.RAD.BRZ ordered. EDMS EDMS 22:56 22:56 ETHANOL+C.LAB.BRZ ordered. EDMS EDMS
[2023-12-05 06:44] VITALS: BP 135/84; TEMP 98.3; O2SAT 97
--- NOTE | 2023-12-05 13:21 | RAD REPORT ---
EXAM DESCRIPTION: CT - Head C Spine Mpr Wo Con - 12/05/2023 6:47 am CLINICAL HISTORY: Fall head injury COMPARISON: 01/06/2023. TECHNIQUE: CT HEAD AND CERVICAL SPINE WITHOUT CONTRAST on 12/04/2023 10:55 PM CDT This exam was performed according to our departmental dose-optimization program, which includes autom ated exposure control, adjustment of the mA and/or kV according to patient size and/or use of iterati ve reconstruction technique. FINDINGS: Brain: There is no acute hemorrhage, mass effect or midline shift. Paz-white differentiat ion is preserved. There is no hydrocephalus. There is no significant volume loss for age. The calvarium is intact. Orbits and globes are unremarkable. The paranasal sinuses are clear. Mastoid air cells are clear. Cervical Spine: There is no acute fracture. Alignment is anatomic. There is mild narrowing of essentially all of the cervical discs with sparing of C2-3. Vertebral body heights are preserved. Soft tissues are unremarkable. IMPRESSION: No acute postraumatic findings. Electronically signed by: Ernesto Valero MD 12/05/2023 12:43 AM CDT RP Due to temporary technical issues with the PACS/Fluency reporting system, reports are being signed by the in house radiologist without review as a courtesy to ensure prompt reporting. The interpreting r adiologist is fully responsible for the content of the report.
== END 2023-12-05 06:31 | disposition home or self-care (01) ==
LOC: ER 22:45
PROC: 0HQ1XZZ Repair Face Skin, External Approach (ICD-10-PCS; principal; 2023-12-04)
DX: S01.01XA Laceration without foreign body of scalp, initial encounter (principal); F10.10 Alcohol abuse, uncomplicated; R46.0 Very low level of personal hygiene; Z72.0 Tobacco use
CPT/HCPCS: 85025; 80048; 36415; 86900; 86850; 86901; 82077; 12011; J3486; 70450; 72125; J2001; J3411; J7030

== ENCOUNTER 2024-01-09 10:33 | Emergency (ER) | payer OTHER ==
[2024-01-09] MEDS ORDERED: NA CHLORIDE 0.9% 1,000 ML ONE (11:19)
[2024-01-09] MEDS ORDERED: ALBUTEROL 2.5 MG/3 ML NEB SOL ONE (11:19)
[2024-01-09] MEDS ORDERED: IPRATROPIUM BROM 0.5MG/2.5ML ONE (11:19)
--- NOTE | 2024-01-09 11:21 | RAD REPORT ---
EXAM DESCRIPTION: RAD - Hip Right 2 View - 01/09/2024 11:10 am CLINICAL HISTORY: Pain;Swelling COMPARISON: No comparisons FINDINGS: Severe osteoarthritis of the right hip is present. No fracture or dislocation seen.
--- NOTE | 2024-01-09 12:28 | RAD REPORT ---
EXAM DESCRIPTION: RAD - Chest Single View - 01/09/2024 12:18 pm CLINICAL HISTORY: Cough;Dyspnea Chest pain. COMPARISON: Chest Single View dated 01/06/2023; Abdomen 1 View (KUB) dated 12/05/2022; Chest Single View dated 12/04/2022; Chest Single View dated 11/08/2022 FINDINGS: Portable technique limits examination quality. Small bilateral pleural effusions are present. Vague opacity is seen in the right lung base which cou ld be an early infiltrate. The heart is mildly prominent size with a tortuous atherosclerotic aorta. No displaced fractures.
[2024-01-09 13:27] LABS: Absolute Basophils 0.1 K/uL (0-0.5); Absolute Eosinophils 0.1 K/uL (0-0.5); Absolute Lymphocytes (CBC) 1.4 K/uL (0.7-4.9); Absolute Monocytes 0.4 K/uL (0.1-1.3); Absolute Neutrophil 5.6 K/uL (1.8-8.0); Basophils % 0.7 % (0-1.3); Eosinophils % 0.8 % (0-4.4); Hematocrit 45.4 % (36.0-45.0); Hemoglobin 14.7 g/dL (12.0-15.0); MCH 33.9 pg (27.0-35.0); MCHC 32.4 g/dL (32.0-36.0); MCV 104.4 fL (80-100); MPV 7.7 fL (7.6-11.3); Monocytes % 5.5 % (3.3-12.3); Nucleated Red Blood Cells % 0.1 % (0-0); Platelets 327 thou/uL (152-406); RBC Red Blood Cell Count 4.35 M/uL (3.86-4.86); Red Cell Distribution Width 14.6 % (12.1-15.2)
[2024-01-09 13:50] LABS: PT Prothrombin Time 10.5 SECONDS (9.4-12.5); Protime INR 0.94
[2024-01-09 14:22] LABS: SARS-CoV-2 Antigen CONTROL BLUE LINE VIS/BG OK; SARS-CoV-2 Antigen Rapid Res Negative (Negative)
[2024-01-09 15:00] LABS: Anion Gap 21.3 mEq/L (5.0-15.0); BUN Blood Urea Nitrogen 9 mg/dL (7-18); Bicarbonate 19 mEq/L (21-32); Glomerular Filtration Rate 99 ml/min (=/>90); Glucose Level 61 mg/dL (74-106); Potassium 3.3 mEq/L (3.5-5.1); Sodium Level 139 mEq/L (136-145)
[2024-01-09] MEDS ORDERED: AZITHROMYCIN 250 MG TAB ONE (17:12)
--- NOTE | 2024-01-09 17:33 | ER ---
Nurse's Notes [facility] Name: Heaven Bhatia Age: 63 yrs Sex: Female : 1960 Arrival Date: 01/09/2024 Time: 10:33 Bed 18 Private MD: Diagnosis: Alcohol dependence with intoxication, unspecified;COPD/ Chronic obstructive pulmonary disease, unspecified Presentation: 01/08 10:40 Chief complaint: EMS states: called for lift assistance but the patient forgot she kj2 called when they got there. She told them she was ready to go see Carlo. Had no plans to harm herself. Coronavirus screen: At this time, the client does not indicate any symptoms associated with coronavirus-19. Ebola Screen: No symptoms or risks identified at this time. Initial Sepsis Screen: Does the patient meet any 2 criteria? No. Patient's initial sepsis screen is negative. Does the patient have a suspected source of infection? No. Patient's initial sepsis screen is negative. Risk Assessment: Do you want to hurt yourself or someone else? Patient reports no desire to harm self or others. Onset of symptoms was January 09, 2024 at 10:00. 10:40 Method Of Arrival: EMS: [facility] kj2 10:40 Acuity: MARILYNN 3 kj2 Triage Assessment: 10:44 General: Appears unkempt, Behavior is cooperative. Pain: Complains of pain in headache kj2 Pain currently is 5 out of 10 on a pain scale. Neuro: Level of Consciousness is awake, alert, obeys commands, Oriented to person, place, time, situation. Cardiovascular: Patient's skin is warm and dry. Respiratory: Airway is patent Respiratory effort is unlabored. GI: Abdomen is. : No deficits noted. Historical: - PMHx: 10:46 chronic back pain; COPD; etoh abuse; Hyperlipidemia; Hypertensive disorder; Seizure; kj2 - PSHx: 10:46 Appendectomy; kj2 - Immunization history:: Adult Immunizations unknown. - Infectious Disease History:: Denies. - Social history:: Smoking status: unknown. - Family history:: not pertinent. - Hospitalizations: : No recent hospitalization is reported. Screenin:48 [facility] ED Fall Risk Assessment (Adult) History of falling in the last 3 months, kj2 including since admission No falls in past 3 months (0 pts) Confusion or Disorientation No (0 pts) Intoxicated or Sedated No (0 pts) Impaired Gait No (0 pts) Mobility Assist Device Used No (0 pt) Altered Elimination No (0 pt) Score/Fall Risk Level 0 - 2 = Low Risk. Abuse screen: Denies threats or abuse. Denies injuries from another. Nutritional screening: No deficits noted. Tuberculosis screening: No symptoms or risk factors identified. Assessment: 10:47 General: see triage. kj2 11:52 Reassessment: Patient appears in no apparent distress at this time. Patient and/or kj2 family updated on plan of care and expected duration. Pain level reassessed. Patient is alert, oriented x 3, equal unlabored respirations, skin warm/dry/pink. 12:20 Reassessment: Patient appears in no apparent distress at this time. Patient and/or kj2 family updated on plan of care and expected duration. Pain level reassessed. Patient is alert, oriented x 3, equal unlabored respirations, skin warm/dry/pink. 13:48 Reassessment:. kj2 14:26 Reassessment: patient verbalized wanting to leave to go to a friends home. RN explained kj2 her alcohol lab level is elevated and suggested she stay to follow physician orders. RN notified Dr Jj. 16:58 Reassessment: patient did not want vitals taken at this time. kj2 17:18 Reassessment: RN gave patient a sandwich, chips, fruit and drink. kj2 17:54 Reassessment: Patient appears in no apparent distress at this time. Patient is alert, kj2 oriented x 3, equal unlabored respirations, skin warm/dry/pink. Pt out of the room, walking towards exit. This RN intercepts patient on hallway POD 2 by room 20. Discharge instructions given to patient at this time, pt voices understanding. Signs paperwork. Pt refuses discharge vital sings. "Im ready to go". Vital Signs: 10:40 BP 153 / 94; Pulse 84; Resp 20; Temp 99.1; Pulse Ox 96% on R/A; kj2 10:47 BP 153 / 94; Pulse 84; Resp 20; Temp 99.1; Pulse Ox 96% on R/A; kj2 11:54 BP 150 / 82; Pulse 80; Resp 20; Pulse Ox 98% on R/A; kj2 14:14 BP 124 / 89; Pulse 88; Resp 18; kj2 ED Course: 10:34 Patient arrived in ED. rn 10:34 Melchor Jj MD is Attending Physician. rn 10:39 Michelle Alcaraz, ELIANE is Primary Nurse. kj2 10:44 Triage completed. kj2 10:49 Patient has correct armband on for positive identification. Bed in low position. Call kj2 light in reach. Provided Education on: call light, fall precautions. 11:11 XRAY Hip RIGHT 2 view In Process Unspecified. EDMS 11:30 Missed attempt(s): 20 gauge in right antecubital area. kj2 11:51 No provider procedures requiring assistance completed. Inserted saline lock: 24 gauge kj2 in right antecubital area, using aseptic technique. 12:19 XRAY Chest (1 view) In Process Unspecified. EDMS 13:05 Inserted saline lock: 20 gauge in left antecubital area, using aseptic technique. Blood nj1 collected. Flushed with 10 mL NS Ultrasound guided. Catheter tip well visualized within vasculature during placement. 13:49 IV was discontinued by the patient. kj2 14:39 IV discontinued, intact, bleeding controlled, No redness/swelling at site. Pressure kj2 dressing applied, per patient request. Administered Medications: 11:49 Drug: NS 0.9% IV 1000 ml IV at 1000 ml once Route: IV; Rate: 1000 ml; Site: left kj2 antecubital; 13:59 Follow up: IV Status: Completed infusion kj2 14:00 Follow up: Response: No adverse reaction kj2 11:49 Drug: Levalbuterol Inhalation 1.25 mg Inhalation once Route: Inhalation; kj2 13:58 Follow up: Response: No adverse reaction; Wheezing diminished kj2 17:14 Drug: AZITHromycin PO 500 mg PO once Route: PO; kj2 17:56 Follow up: Response: No adverse reaction kj2 Medication: 10:49 VIS not applicable for this client. kj2 Outcome: 17:32 Discharge ordered by . rn 17:55 Discharged to home ambulatory, kj2 17:55 Condition: stable 17:55 Discharge instructions given to patient, Instructed on discharge instructions, follow up and referral plans. medication usage, Demonstrated understanding of instructions, follow-up care, medications, Prescriptions given X 1, 17:56 Patient left the ED. kj2 Signatures: Dispatcher [employer] Melchor Lombardo MD MD rn Adelia Griffith RN RN nj1 Michelle Alcaraz RN RN kj2
--- NOTE | 2024-01-09 17:33 | EDPHYS ---
Physician Documentation [facility] Name: Heaven Bhatia Age: 63 yrs Sex: Female : 1960 Arrival Date: 01/09/2024 Time: 10:33 Bed 18 Private MD: ED Physician Melchor Jj HPI: 01/08 11:17 This 63 yrs old Female presents to ER via EMS with complaints of ams. rn 11:17 The patient presents with agitation. Onset: The symptoms/episode began/occurred at an rn unknown time. Current symptoms: In the emergency department the patient's symptoms are unchanged from the initial presentation. The patient has experienced similar episodes in the past. Patient brought in by EMS after she felt like she was dying and called 911. Patient here often for this with alcohol intoxication and reports that she is dying, when robin up does better and is able to go home. Patient denies any suicidal ideations at this time or intent or plan. Patient reports has COPD and has mild shortness of breath. No new fall or head injury. Patient reports mild swelling to the right hip.. Historical: - PMHx: 10:46 chronic back pain; COPD; etoh abuse; Hyperlipidemia; Hypertensive disorder; Seizure; kj2 - PSHx: 10:46 Appendectomy; kj2 - Immunization history:: Adult Immunizations unknown. - Infectious Disease History:: Denies. - Social history:: Smoking status: unknown. - Family history:: not pertinent. - Hospitalizations: : No recent hospitalization is reported. ROS: 11:19 Constitutional: Negative for fever, chills, and weight loss, Neck: Negative for injury, rn pain, and swelling, Cardiovascular: Negative for chest pain, palpitations, and edema, Respiratory: Positive for cough and shortness of breath Abdomen/GI: Negative for abdominal pain, nausea, vomiting, diarrhea, and constipation, MS/Extremity: Negative for injury and deformity, Skin: Negative for injury, rash, and discoloration, Neuro: Negative for headache, weakness, numbness, tingling, and seizure, Exam: 11:19 Constitutional: This is a well developed, well nourished patient who is awake, alert, rn and in no acute distress. Appears intoxicated Head/Face: Normocephalic, atraumatic. ENT: Dry mucous membranes Cardiovascular: Regular rate and rhythm. No pulse deficits. Respiratory: Mild tachypnea, speaking full sentences unlabored. Abdomen/GI: Soft, non-tender MS/ Extremity: Pulses equal, no cyanosis. Neuro: Awake and alert, GCS 15 Vital Signs: 10:40 BP 153 / 94; Pulse 84; Resp 20; Temp 99.1; Pulse Ox 96% on R/A; kj2 10:47 BP 153 / 94; Pulse 84; Resp 20; Temp 99.1; Pulse Ox 96% on R/A; kj2 11:54 BP 150 / 82; Pulse 80; Resp 20; Pulse Ox 98% on R/A; kj2 14:14 BP 124 / 89; Pulse 88; Resp 18; kj2 MDM: 10:34 Patient medically screened. rn 14:18 Differential Diagnosis: volume depletion, COVID, pneumonia, COPD, ETOH intoxication. rn Data reviewed: vital signs, nurses notes, lab test result(s), radiologic studies, and as a result, I will discharge patient. Counseling: I had a detailed discussion with the patient and/or guardian regarding the historical points, exam findings, and any diagnostic results supporting the discharge/admit diagnosis. 17:31 ED course: Patient feels better, much more sober, is calling for a ride. Denies any rn suicidal ideations or intent to harm herself now that she is sober. Patient presented with low-grade fever and chest x-ray shows possible early infiltrate, given has COPD will discharge home with antibiotics.. 01/08 10:37 Order name: Acetaminophen; Complete Time: 17:01 rn 01/08 10:37 Order name: Basic Metabolic Panel; Complete Time: 17:01 rn 01/08 10:37 Order name: CBC with Diff; Complete Time: 13:50 rn 01/08 10:37 Order name: ETOH Level; Complete Time: 13:50 rn 01/08 10:37 Order name: PT-INR; Complete Time: 14:18 rn 01/08 11:19 Order name: SARS RAPID; Complete Time: 14:32 rn 01/08 10:49 Order name: XRAY Hip RIGHT 2 view; Complete Time: 12:29 rn 01/08 11:18 Order name: XRAY Chest (1 view); Complete Time: 12:29 rn 01/08 10:37 Order name: IV Saline Lock; Complete Time: 11:50 rn 01/08 10:37 Order name: Labs collected and sent; Complete Time: 11:50 rn 01/08 11:44 Order name: Labs - recollect needed: recollect all tubes; Complete Time: 13:26 bd 01/08 13:51 Order name: Labs - recollect needed: recollect green top; Complete Time: 14:50 bd Administered Medications: 11:49 Drug: NS 0.9% IV 1000 ml IV at 1000 ml once Route: IV; Rate: 1000 ml; Site: left kj2 antecubital; 13:59 Follow up: IV Status: Completed infusion kj2 14:00 Follow up: Response: No adverse reaction kj2 11:49 Drug: Levalbuterol Inhalation 1.25 mg Inhalation once Route: Inhalation; kj2 13:58 Follow up: Response: No adverse reaction; Wheezing diminished kj2 17:14 Drug: AZITHromycin PO 500 mg PO once Route: PO; kj2 17:56 Follow up: Response: No adverse reaction kj2 Disposition Summary: 01/09/24 17:32 Discharge Ordered Notes: Location: Home rn Problem: an ongoing problem rn Symptoms: have improved rn Condition: Stable rn Diagnosis - Alcohol dependence with intoxication, unspecified rn - COPD/ Chronic obstructive pulmonary disease, unspecified rn Followup: rn - With: Private Physician - When: As needed - Reason: Recheck today's complaints, Re-evaluation by your physician Discharge Instructions: - Discharge Summary Sheet rn - Alcohol Intoxication rn - Chronic Obstructive Pulmonary Disease rn Forms: - Medication Reconciliation Form rn - Antibiotic internet sales director - Prescription Opioid Use rn - Patient Portal Instructions rn - Leadership Thank You Letter rn Prescriptions: - Zithromax Z-Brandon 250 mg Oral Tablet - take 1 tablet ORAL route as directed for 5 days Day 1 - take two (2) tablets rn one time. Day 2, 3, 4 , 5 take one (1) tablet once daily.; 6 tablet; Refills: 0, Product Selection Permitted Signatures: Dispatcher [employer] EDMS Shameka Willson Roman, MD MD rn Jordan, Krystal, RN RN kj2 Corrections: (The following items were deleted from the chart) 10:37 10:37 ACETAMINOPHEN+C.LAB.BRZ ordered. EDMS EDMS 10:37 10:37 BASIC METABOLIC PANEL+C.LAB.BRZ ordered. EDMS EDMS 10:37 10:37 CBC+H.LAB.BRZ ordered. EDMS EDMS 10:37 10:37 ETHANOL+C.LAB.BRZ ordered. EDMS EDMS 10:37 10:37 PROTIME (+INR)+COAG.LAB.BRZ ordered. EDMS EDMS 10:37 10:37 URINE DRUG SCREEN+UC.LAB.BRZ ordered. EDMS EDMS 11:19 11:19 SARS-COV-2 Antigen Rapid+I.LAB.BRZ ordered. EDMS EDMS
[2024-01-09 18:20] VITALS: TEMP 99.1
[2024-01-09 18:22] VITALS: O2SAT 98
[2024-01-09 18:23] VITALS: BP 124/89
== END 2024-01-09 17:56 | disposition home or self-care (01) ==
LOC: ER 10:33
DX: F10.229 Alcohol dependence with intoxication, unspecified (principal); J44.9 Chronic obstructive pulmonary disease, unspecified; M25.551 Pain in right hip; Z11.52 Encounter for screening for COVID-19
CPT/HCPCS: 85025; 80048; 36415; 85610; 71045; 73502; 80143; 82077; 87811; J7613; J7644; J7030

== ENCOUNTER 2024-02-01 17:10 | Emergency (ER) | payer OTHER ==
[2024-02-01 17:42] LABS: Absolute Basophils 0.1 K/uL (0-0.5); Absolute Eosinophils 0.3 K/uL (0-0.5); Absolute Lymphocytes (CBC) 1.8 K/uL (0.7-4.9); Absolute Monocytes 0.8 K/uL (0.1-1.3); Absolute Neutrophil 5.5 K/uL (1.8-8.0); Basophils % 1.3 % (0-1.3); Hematocrit 38.8 % (36.0-45.0); Hemoglobin 13.2 g/dL (12.0-15.0); Lymphocytes % 21.6 % (15.3-44.8); MCH 34.6 pg (27.0-35.0); MCHC 34.1 g/dL (32.0-36.0); MCV 101.7 fL (80-100); MPV 7.8 fL (7.6-11.3); Monocytes % 9.4 % (3.3-12.3); Neutrophils % 64.7 % (41.7-73.7); Platelets 182 thou/uL (152-406); RBC Red Blood Cell Count 3.82 M/uL (3.86-4.86); Red Cell Distribution Width 14.8 % (12.1-15.2)
[2024-02-01 17:52] LABS: PT Prothrombin Time 10.5 SECONDS (9.4-12.5); PTT, Activated Partial Thromb 30.3 SECONDS (24.3-36.9); Protime INR 0.94
[2024-02-01 18:10] LABS: ALT/SGPT 91 U/L (13-56); AST/SGOT 181 U/L (15-37); Albumin 3.2 g/dL (3.4-5.0); Albumin/Globulin Ratio 0.9 (1.1-1.8); Alkaline Phosphatase 79 U/L (45-117); Anion Gap 16.2 mEq/L (5.0-15.0); BUN Blood Urea Nitrogen 13 mg/dL (7-18); Bicarbonate 21 mEq/L (21-32); Bilirubin Direct 0.4 mg/dL (0-0.2); Bilirubin Indirect, Calculated 0.3 mg/dL (0.2-0.8); Bilirubin Total 0.7 mg/dL (0.2-1.0); Globulin 3.7 g/dL (2.3-3.5); Glomerular Filtration Rate 91 ml/min (=/>90); Glucose Level 95 mg/dL (74-106); Potassium 3.2 mEq/L (3.5-5.1); Protein, Total 6.9 g/dL (6.4-8.2); Sodium Level 140 mEq/L (136-145)
--- NOTE | 2024-02-01 19:08 | RAD REPORT ---
EXAM DESCRIPTION: CT - CTHCSPWOC - 02/01/2024 6:57 pm CLINICAL HISTORY: Trauma, head and neck injury. fall COMPARISON: <Comparisons> TECHNIQUE: Axial 5 mm thick images of the head were obtained. Axial 2 mm thick images of the cervical spine were obtained with sagittal and coronal reconstruction images generated and reviewed. All CT scans are performed using dose optimization technique as appropriate and may include automated exposure control or mA/KV adjustment according to patient size. FINDINGS: CT HEAD WITHOUT CONTRAST: No acute hemorrhage, hydrocephalus or extra-axial collection is identified.Mild generalized brain atr ophy is present with moderate periventricular and deep white matter chronic microvascular ischemic ch anges.No areas of brain edema or midline shift. The paranasal sinuses and mastoids are clear.The calvarium is intact. CT CERVICAL SPINE WITHOUT CONTRAST: No fracture or subluxation.Mild lower cervical degenerative changes.No prevertebral soft tissues swel ling is identified. Bilateral carotid atherosclerosis. IMPRESSION: No acute intracranial or cervical spine findings.
[2024-02-01] MEDS ORDERED: NA CHLORIDE 0.9% 1,000 ML ONE (21:47)
--- NOTE | 2024-02-01 23:51 | ER ---
Nurse's Notes [facility] Name: Heaven Bhatia Age: 63 yrs Sex: Female : 1960 Arrival Date: 02/01/2024 Time: 17:10 Bed 8 Private MD: Diagnosis: Alcohol abuse with intoxication;Acute emotional upset Presentation: 01/31 17:21 Chief complaint: EMS states: APS was at house for follow up visit and was concerned she hb was uncooperative, confused, surrounded by empty vodka bottles and appeared intoxicated. Coronavirus screen: At this time, the client does not indicate any symptoms associated with coronavirus-19. Ebola Screen: No symptoms or risks identified at this time. Initial Sepsis Screen: Does the patient meet any 2 criteria? No. Patient's initial sepsis screen is negative. Does the patient have a suspected source of infection? No. Patient's initial sepsis screen is negative. Risk Assessment: Do you want to hurt yourself or someone else? Patient reports no desire to harm self or others. Onset of symptoms was February 01, 2024. 17:21 Method Of Arrival: EMS: [facility] hb 17:21 Acuity: MARILYNN 2 hb Historical: - Allergies: 17:25 No Known Drug Allergies; hb - PMHx: 17:25 chronic back pain; COPD; etoh abuse; Hyperlipidemia; Hypertensive disorder; Seizure; hb - PSHx: 17:25 Appendectomy; hb - Immunization history:: Adult Immunizations up to date. - Infectious Disease History:: Denies. - Social history:: Smoking status: unknown. Screenin:37 [facility] ED Fall Risk Assessment (Adult) History of falling in the last 3 months, mb9 including since admission No falls in past 3 months (0 pts) Confusion or Disorientation Yes (5 pts) Intoxicated or Sedated Yes (3 pts) Impaired Gait Yes (1 pt) Mobility Assist Device Used No (0 pt) Altered Elimination No (0 pt) Score/Fall Risk Level 3 or more points = High Risk Oriented to surroundings, Maintained a safe environment, Educated pt \T\ family on fall prevention, incl call for assistance when getting out of bed, Assessed \T\ reinforced patient's understanding of fall precautions. Abuse screen: Denies threats or abuse. Nutritional screening: No deficits noted. Tuberculosis screening: No symptoms or risk factors identified. Assessment: 17:36 General: Appears in no apparent distress. Behavior is calm, cooperative. Pain: Denies mb9 pain. Neuro: Level of Consciousness is awake, obeys commands, confused, Oriented to person. Cardiovascular: Patient's skin is warm and dry. Respiratory: Airway is patent Respiratory effort is even, unlabored, Respiratory pattern is regular, symmetrical. GI: No signs and/or symptoms were reported involving the gastrointestinal system. : No signs and/or symptoms were reported regarding the genitourinary system. EENT: No signs and/or symptoms were reported regarding the EENT system. Derm: Bruising that is bright red, on face, right arm and left arm. Musculoskeletal: Range of motion: intact in all extremities. 19:06 Reassessment: No changes from previously documented assessment. Patient and/or family mb9 updated on plan of care and expected duration. Pain level reassessed. Patient is alert, oriented x 3, equal unlabored respirations, skin warm/dry/pink. Vital Signs: 17:21 BP 114 / 75; Pulse 88; Resp 16; Temp 97.1; Pulse Ox 92% on R/A; hb 18:43 BP 131 / 75; Pulse 87; Resp 16; Pulse Ox 98% on R/A; mb9 21:40 BP 142 / 85; Pulse 83; Resp 19; Pulse Ox 94% on R/A; kd3 02/01 00:06 BP 155 / 90; Pulse 84; Resp 19; Pulse Ox 98% on R/A; kd3 Lanie Coma Score: 01/31 23:47 Eye Response: spontaneous(4). Motor Response: obeys commands(6). Verbal Response: sp4 oriented(5). Total: 15. ED Course: 17:14 Patient arrived in ED. ec2 17:15 Alhaji Mays DO is Attending Physician. ms3 17:19 Arm band placed on. mb9 17:19 Adult Protective Services APS insurance service representative Beatrice Youssef called to request em1 notification of discharge, transfer, or admission. She can be reached at [phone]. 17:22 Coreen Youssef, RN is Primary Nurse. vicente 17:25 Triage completed. hb 17:36 Initial lab(s) drawn, by me, sent to lab. EKG done, by ED staff, reviewed by Alhaji Mays DO. Inserted saline lock: 22 gauge in right forearm, using aseptic technique. Blood collected. Flushed with 10 mL NS. 17:37 Placed in gown. Bed in low position. Call light in reach. Side rails up X 1. Provided mb9 Education on: press call light if needing anything. Client placed on continuous cardiac and pulse oximetry monitoring. NIBP monitoring applied. color television console monitor on. 17:37 No provider procedures requiring assistance completed. mb9 18:59 CT Head C Spine In Process Unspecified. EDMS 19:06 Report given to Tereza RN. mb9 20:04 Attending Physician role handed off by Alhaji Mays DO sp4 20:04 Hussain Orosco MD is Attending Physician. sp4 02/01 00:05 IV discontinued, intact, bleeding controlled, No redness/swelling at site. Pressure kd3 dressing applied. Administered Medications: 01/31 23:43 Not Given (Patient Refused): Banana Bag - (ns 0.9% 1000 ml, folic acid ivpb 1 mg, kd3 [id number] mg, multivitamin1 amp) IV at calculated rate once Medication: 17:37 VIS not applicable for this client. mb9 Outcome: 23:51 Discharge ordered by . sp4 02/01 00:05 Discharged to home via wheelchair, kd3 Condition: stable Discharge instructions given to patient, Instructed on discharge instructions, Demonstrated understanding of instructions, follow-up care, 00:06 Patient left the ED. kd3 Signatures: Dispatcher [employer] EDAK Mj Jacinto em1 Madeleine Calvo RN RN Alhaji Mays DO DO ms3 Steffi Olivia RN RN kd3 Coreen Youssef RN RN mb9 Hussain Orosco MD MD sp4 Keyshawn Kendall MD MD ec2
--- NOTE | 2024-02-01 23:51 | EDPHYS ---
Physician Documentation [facility] Name: Heaven Bhatia Age: 63 yrs Sex: Female : 1960 Arrival Date: 02/01/2024 Time: 17:10 Bed 8 Private MD: ED Physician Hussain Orosco HPI: 01/31 17:17 This 63 yrs old Female presents to ER via Unassigned with complaints of suicidal ms3 ideation. 17:17 63-year-old female presents to the emergency department via [facility] after ms3 being called by her apartment complex. EMS notes APS is involved in patient's case and patient is stating she does not want to live. On exam patient states she does not want to live. Patient does not have a plan for suicide. Patient denies homicidal ideation, or hallucinations.. Historical: - Allergies: 17:25 No Known Drug Allergies; hb - PMHx: 17:25 chronic back pain; COPD; etoh abuse; Hyperlipidemia; Hypertensive disorder; Seizure; hb - PSHx: 17:25 Appendectomy; hb - Immunization history:: Adult Immunizations up to date. - Infectious Disease History:: Denies. - Social history:: Smoking status: unknown. ROS: 17:17 Constitutional: Negative for fever, and chills. Cardiovascular: Negative for chest ms3 pain, and palpitations. Respiratory: Negative for shortness of breath, cough, wheezing, and pleuritic chest pain, Abdomen/GI: Negative for abdominal pain, nausea, vomiting, diarrhea, and constipation, MS/Extremity: Negative for injury and deformity, 17:17 Psych: Positive for suicidal ideation, Exam: 17:17 Constitutional: This is a well developed, well nourished patient who is awake, alert, ms3 and in no acute distress. Head/Face: Normocephalic, atraumatic. Chest/axilla: Normal chest wall appearance and motion. Nontender with no deformity. Cardiovascular: Regular rate and rhythm with a normal S1 and S2. No gallops, murmurs, or rubs. Normal PMI, no JVD. No pulse deficits. Respiratory: Lungs have equal breath sounds bilaterally, clear to auscultation and percussion. No rales, rhonchi or wheezes noted. No increased work of breathing, no retractions or nasal flaring. Abdomen/GI: Soft, non-tender, with normal bowel sounds. No distension or tympany. No guarding or rebound. No evidence of tenderness throughout. Skin: Warm, dry with normal turgor. Normal color with no rashes, no lesions, and no evidence of cellulitis. MS/ Extremity: Pulses equal, no cyanosis. Neurovascular intact. Full, normal range of motion. 17:17 Psych: Behavior/mood is pleasant, Affect is calm, Patient states she does not want to live, 18:02 ECG was reviewed by the Attending Physician. ms3 Vital Signs: 17:21 BP 114 / 75; Pulse 88; Resp 16; Temp 97.1; Pulse Ox 92% on R/A; hb 18:43 BP 131 / 75; Pulse 87; Resp 16; Pulse Ox 98% on R/A; mb9 21:40 BP 142 / 85; Pulse 83; Resp 19; Pulse Ox 94% on R/A; kd3 02/01 00:06 BP 155 / 90; Pulse 84; Resp 19; Pulse Ox 98% on R/A; kd3 [place] Coma Score: 01/31 23:47 Eye Response: spontaneous(4). Motor Response: obeys commands(6). Verbal Response: sp4 oriented(5). Total: 15. MDM: 17:16 Patient medically screened. ms3 17:17 Differential diagnosis: acute psychotic break, depression, psychosis secondary to ms3 non-compliance, Alcohol intoxication. 23:47 Data reviewed: vital signs, nurses notes, EMS record, lab test result(s), EKG, sp4 radiologic studies. 23:48 ED course: EXAM DESCRIPTION: CT - CTHCSPWOC - 02/01/2024 6:57 pm CLINICAL HISTORY: sp4 Trauma, head and neck injury. fall COMPARISON: TECHNIQUE: Axial 5 mm thick images of the head were obtained. Axial 2 mm thick images of the cervical spine were obtained with sagittal and coronal reconstruction images generated and reviewed. All CT scans are performed using dose optimization technique as appropriate and may include automated exposure control or mA/KV adjustment according to patient size. FINDINGS: CT HEAD WITHOUT CONTRAST: No acute hemorrhage, hydrocephalus or extra-axial collection is identified.Mild generalized brain atrophy is present with moderate periventricular and deep white matter chronic microvascular ischemic changes.No areas of brain edema or midline shift. The paranasal sinuses and mastoids are clear.The calvarium is intact. CT CERVICAL SPINE WITHOUT CONTRAST: No fracture or subluxation.Mild lower cervical degenerative changes.No prevertebral soft tissues swelling is identified. Bilateral carotid atherosclerosis. IMPRESSION: No acute intracranial or cervical spine findings. . 23:49 Consideration of Admission/Observation Escalation of care including sp4 admission/observation considered. ED course: Patient was kept in the emergency room and she has sobered up.. 23:50 ED course: After 6-1/2 hours in the emergency room patient is clinically sober feels sp4 better and reports she is not suicidal. She states she would like to be discharged home to feed her dogs . Patient repetitively denies suicidal ideation or plan. Stable for discharge home at this time. Patient strongly advised to discontinue alcohol abuse. . 01/31 17:16 Order name: Acetaminophen; Complete Time: 18:15 ms3 01/31 17:16 Order name: BMP; Complete Time: 18:15 ms3 01/31 17:16 Order name: CBC with Diff; Complete Time: 18:15 ms3 01/31 17:16 Order name: Ethanol; Complete Time: 18:15 ms3 01/31 17:16 Order name: Hepatic Function; Complete Time: 18:15 ms3 01/31 17:16 Order name: Protime (+inr); Complete Time: 18:15 ms3 01/31 17:16 Order name: Ptt, Activated; Complete Time: 18:15 ms3 01/31 17:16 Order name: Salicylate; Complete Time: 19:28 ms3 01/31 17:19 Order name: CT Head C Spine; Complete Time: 19:28 ms3 01/31 17:16 Order name: EKG; Complete Time: 17:17 ms3 01/31 17:16 Order name: EKG - Nurse/Tech; Complete Time: 17:48 ms3 01/31 17:16 Order name: IV Saline Lock; Complete Time: 17:48 ms3 01/31 17:16 Order name: Labs collected and sent; Complete Time: 17:48 ms3 01/31 17:16 Order name: O2 Per Protocol; Complete Time: 17:17 ms3 01/31 17:16 Order name: O2 Sat Monitoring; Complete Time: 17:17 ms3 01/31 17:16 Order name: Suicide Screening ([place]); Complete Time: 23:43 ms3 EC:02 Rate is 90 beats/min. Rhythm is regular. Left axis deviation noted. [place] interval is ms3 normal. Clinical impression: NSR w/ Non-specific ST/T Changes and LBBB. Interpreted by me. Reviewed by me. Administered Medications: 23:43 Not Given (Patient Refused): Banana Bag - (ns 0.9% 1000 ml, folic acid ivpb 1 mg, kd3 [id number] mg, multivitamin1 amp) IV at calculated rate once Disposition Summary: 02/01/24 23:51 Discharge Ordered Notes: Location: Home sp4 Problem: new sp4 Symptoms: have improved sp4 Condition: Stable sp4 Diagnosis - Alcohol abuse with intoxication sp4 - Acute emotional upset sp4 Followup: sp4 - With: Private Physician - When: 7 - 10 days - Reason: Recheck today's complaints Discharge Instructions: - Discharge Summary Sheet sp4 - Alcohol Intoxication sp4 Forms: - Patient Portal Instructions sp4 Signatures: Dispatcher [employer] EDMS Madeleine Calvo RN RN Alhaji Mays DO DO ms3 Hussain Orosco MD MD sp4 Steffi Olivia RN kd3 Corrections: (The following items were deleted from the chart) 17:17 17:17 ACETAMINOPHEN+C.LAB.BRZ ordered. EDMS EDMS 17:17 17:17 BASIC METABOLIC PANEL+C.LAB.BRZ ordered. EDMS EDMS 17:17 17:17 CBC+H.LAB.BRZ ordered. EDMS EDMS 17:17 17:17 ETHANOL+C.LAB.BRZ ordered. EDMS EDMS 17:17 17:17 HEPATIC FUNCTION+C.LAB.BRZ ordered. EDMS EDMS 17:17 17:17 PROTIME (+INR)+COAG.LAB.BRZ ordered. EDMS EDMS 17:17 17:17 PTT, ACTIVATED+COAG.LAB.BRZ ordered. EDMS EDMS 17:17 17:17 SALICYLATE+C.LAB.BRZ ordered. EDMS EDMS 17:17 17:17 URINE DRUG SCREEN+UC.LAB.BRZ ordered. EDMS EDMS
[2024-02-02 00:24] VITALS: TEMP 97.1
[2024-02-02 00:29] VITALS: BP 155/90; O2SAT 98
--- NOTE | 2024-02-05 12:49 | EKG ---
Test Date: 2024-02-01 Test Time: 17:33:36 [facility] Director: MB MEASUREMENT RESULTS: Intervals: Rate: 90 MS: 174 QRSD: 142 QT: 410 QTc: 501 [place]: P: 76 MS: 174 QRS: -75 T: 96 INTERPRETIVE STATEMENTS: Normal sinus rhythm Left axis deviation Left bundle branch block Abnormal ECG Compared to ECG 12/26/2023 17:56:35 Fusion complex(es) no longer present Electronically Signed On 02-05-24 12:42:37 CDT by Nicolás Carter
== END 2024-02-02 00:06 | disposition home or self-care (01) ==
LOC: ER 17:10
DX: R45.7 State of emotional shock and stress, unspecified (principal); F10.129 Alcohol abuse with intoxication, unspecified; I10 Essential (primary) hypertension; J44.9 Chronic obstructive pulmonary disease, unspecified
CPT/HCPCS: 93005; 85025; 80048; 36415; 85610; 80076; 85730; 70450; 72125; 99284; 80143; 80179; 82077; J7030

== ENCOUNTER 2024-02-02 15:25 | Emergency (ER) | payer OTHER ==
[2024-02-02 16:46] LABS: Absolute Basophils 0.1 K/uL (0-0.5); Absolute Eosinophils 0.4 K/uL (0-0.5); Absolute Lymphocytes (CBC) 1.3 K/uL (0.7-4.9); Absolute Monocytes 0.8 K/uL (0.1-1.3); Absolute Neutrophil 3.7 K/uL (1.8-8.0); Basophils % 1.1 % (0-1.3); Eosinophils % 5.8 % (0-4.4); Hematocrit 38.9 % (36.0-45.0); Hemoglobin 13.1 g/dL (12.0-15.0); Lymphocytes % 21.3 % (15.3-44.8); MCH 34.1 pg (27.0-35.0); MCHC 33.7 g/dL (32.0-36.0); MCV 101.3 fL (80-100); MPV 7.9 fL (7.6-11.3); Monocytes % 12.6 % (3.3-12.3); Neutrophils % 59.2 % (41.7-73.7); Platelets 190 thou/uL (152-406); RBC Red Blood Cell Count 3.84 M/uL (3.86-4.86); Red Cell Distribution Width 14.6 % (12.1-15.2)
[2024-02-02 16:50] LABS: PT Prothrombin Time 10.6 SECONDS (9.4-12.5); PTT, Activated Partial Thromb 29.9 SECONDS (24.3-36.9); Protime INR 0.94
[2024-02-02 17:05] LABS: ALT/SGPT 81 U/L (13-56); AST/SGOT 145 U/L (15-37); Albumin 3.1 g/dL (3.4-5.0); Albumin/Globulin Ratio 0.8 (1.1-1.8); Alkaline Phosphatase 77 U/L (45-117); Anion Gap 12.2 mEq/L (5.0-15.0); BUN Blood Urea Nitrogen 13 mg/dL (7-18); Bicarbonate 26 mEq/L (21-32); Bilirubin Direct 0.4 mg/dL (0-0.2); Bilirubin Indirect, Calculated 0.2 mg/dL (0.2-0.8); Bilirubin Total 0.6 mg/dL (0.2-1.0); Globulin 3.7 g/dL (2.3-3.5); Glomerular Filtration Rate 97 ml/min (=/>90); Glucose Level 77 mg/dL (74-106); Potassium 3.2 mEq/L (3.5-5.1); Protein, Total 6.8 g/dL (6.4-8.2); Sodium Level 143 mEq/L (136-145)
--- NOTE | 2024-02-02 17:16 | EDPHYS ---
Physician Documentation [facility] Name: Heaven Bhatia Age: 63 yrs Sex: Female : 1960 Arrival Date: 02/02/2024 Time: 15:25 Bed 6 Private MD: ED Physician Jesus Hernández HPI: 02/01 19:12 This 63 yrs old Female presents to ER via EMS with complaints of Suicidal Ideation. rt 19:12 Patient presents to the ED with suicidal ideations. Patient denies specific plan, rt denies physical symptoms at this time, symptoms are moderate in severity, no other aggravating or alleviating factors.. Historical: - Allergies: 15:56 No Known Allergies; tl4 - PMHx: 15:56 chronic back pain; COPD; etoh abuse; Hyperlipidemia; Hypertensive disorder; Seizure; tl4 - PSHx: 15:56 Appendectomy; tl4 - Immunization history:: Adult Immunizations unknown. - Infectious Disease History:: Denies. - Social history:: Smoking status: Patient reports the use of cigarette tobacco products, smokes one-half pack cigarettes per day, Patient uses alcohol, on a daily basis. - Family history:: not pertinent. ROS: 19:30 Constitutional: Negative for fever, chills, and weight loss, Cardiovascular: Negative rt for chest pain, palpitations, and edema, Respiratory: Negative for shortness of breath, cough, wheezing, and pleuritic chest pain, Abdomen/GI: Negative for abdominal pain, nausea, vomiting, diarrhea, and constipation, Skin: Negative for injury, rash, and discoloration, Neuro: Negative for headache, weakness, numbness, tingling, and seizure, 19:30 Psych: Positive for alcohol dependence, suicidal ideation, Negative for Exam: 19:30 Constitutional: This is a well developed, well nourished patient who is awake, alert, rt and in no acute distress. Head/Face: Normocephalic, atraumatic. Chest/axilla: Normal chest wall appearance and motion. Nontender with no deformity. No lesions are appreciated. Cardiovascular: Regular rate and rhythm with a normal S1 and S2. No gallops, murmurs, or rubs. Normal PMI, no JVD. No pulse deficits. Respiratory: Lungs have equal breath sounds bilaterally, clear to auscultation and percussion. No rales, rhonchi or wheezes noted. No increased work of breathing, no retractions or nasal flaring. Abdomen/GI: Soft, non-tender, with normal bowel sounds. No distension or tympany. No guarding or rebound. No evidence of tenderness throughout. Skin: Warm, dry with normal turgor. Normal color with no rashes, no lesions, and no evidence of cellulitis. MS/ Extremity: Pulses equal, no cyanosis. Neurovascular intact. Full, normal range of motion. Vital Signs: 15:30 BP 122 / 86; Pulse 74; Resp 16; Temp 98.7; Pulse Ox 88% on R/A; Weight 67.13 kg (M); tl4 Height 5 ft. 2 in. ; Pain 0/10; 17:00 BP 132 / 84; Pulse 82; Resp 16; Pulse Ox 98% on R/A; ko1 17:25 BP 135 / 80; Pulse 77; Resp 17; Pulse Ox 99% on R/A; ld1 15:30 Body Mass Index 27.07 (67.13 kg, 157.48 cm) tl4 15:30 Pain Scale: Adult tl4 MDM: 15:54 Patient medically screened. rt 19:30 Differential diagnosis: Suicidal ideation, alcohol dependence. Data reviewed: vital rt signs, nurses notes, lab test result(s). Consideration of Admission/Observation Escalation of care including admission/observation considered. Will transfer for psychiatric care. Test considered but Not performed: CT: No signs of head trauma, CT scan indicated. Counseling: I had a detailed discussion with the patient and/or guardian regarding the historical points, exam findings, and any diagnostic results supporting the discharge/admit diagnosis, lab results, the need to transfer to another facility. 19:31 Care significantly affected by the following Social Determinants of Health: Misuse of rt alcohol and/or drugs. 02/01 15:58 Order name: Acetaminophen; Complete Time: 17:13 rt 02/01 15:58 Order name: Basic Metabolic Panel; Complete Time: 17:13 rt 02/01 15:58 Order name: CBC with Diff; Complete Time: 16:59 rt 02/01 15:58 Order name: ETOH Level; Complete Time: 19:32 rt 02/01 15:58 Order name: Hepatic Function; Complete Time: 17:13 rt 02/01 15:58 Order name: PT-INR; Complete Time: 16:59 rt 02/01 15:58 Order name: Ptt, Activated; Complete Time: 16:59 rt 02/01 15:58 Order name: Salicylate; Complete Time: 19:32 rt 02/01 15:58 Order name: IV Saline Lock; Complete Time: 16:50 rt 02/01 15:58 Order name: Labs collected and sent; Complete Time: 16:50 rt 02/01 15:58 Order name: Suicide Screening ([place]); Complete Time: 16:50 rt Administered Medications: No medications were administered Disposition Summary: 02/02/24 17:15 Transfer Ordered Notes: Transfer Location: Psych Facility rt Reason: Higher level of care rt Condition: Fair rt Problem: new rt Symptoms: are unchanged rt Accepting Physician: (02/02/24 17:41) ko1 Diagnosis - Suicidal ideations rt - Alcohol abuse rt Forms: - Medication Reconciliation Form rt - SBAR form rt Signatures: Dispatcher [employer] EDConsuelo Torrez RN RN ko1 Jesus Hernández MD MD rt Alireza Paulino RN RN tl4 Corrections: (The following items were deleted from the chart) 17:41 17:15 rt ko1 19:30 19:12 Patient presents to the ED with suicidal ideations.. rt rt
--- NOTE | 2024-02-02 17:16 | ER ---
Nurse's Notes [facility] Name: Heaven Bhatia Age: 63 yrs Sex: Female : 1960 Arrival Date: 02/02/2024 Time: 15:25 Bed 6 Private MD: Diagnosis: Suicidal ideations;Alcohol abuse Presentation: 02/01 15:30 Chief complaint: Patient states: Pt states "Just let me ", "I want to go home to [address]", "I have no reason to live but I have to feed my dogs", "I am dying". Pt states she has not had any electric, food for herself or her dogs in over a week. EMS reports pt apt is uninhabitable and dogs are defecating and urinating in the apt. Pt states she can not use the toilet in her apt so she is urinating and defecating in her pants. Coronavirus screen: At this time, the client does not indicate any symptoms associated with coronavirus-19. Ebola Screen: No symptoms or risks identified at this time. Initial Sepsis Screen: Does the patient meet any 2 criteria? No. Patient's initial sepsis screen is negative. Does the patient have a suspected source of infection? No. Patient's initial sepsis screen is negative. Risk Assessment: Do you want to hurt yourself or someone else? Patient reports desire/thoughts of hurting themselves or someone else. Provider notified. Onset of symptoms is unknown. 15:30 Method Of Arrival: EMS: [facility] tl4 15:30 Acuity: MARILYNN 2 tl4 Triage Assessment: 15:33 General: Appears unkempt, Behavior is cooperative, Smells of body odor. Pain: Complains tl4 of pain in "everywhere". EENT: No signs and/or symptoms were reported regarding the EENT system. Neuro: Level of Consciousness is awake, alert, obeys commands, Oriented to person, place, time, situation, Moves all extremities. Full function Gait is steady, Speech is normal, Facial symmetry appears normal. Cardiovascular: Capillary refill < 3 seconds Patient's skin is warm and dry. Respiratory: Airway is patent Respiratory effort is even, unlabored, Respiratory pattern is regular, symmetrical. GI: No signs and/or symptoms were reported involving the gastrointestinal system. : No signs and/or symptoms were reported regarding the genitourinary system. Derm: No signs and/or symptoms reported regarding the dermatologic system. Musculoskeletal: No signs and/or symptoms reported regarding the musculoskeletal system. Historical: - Allergies: 15:56 No Known Allergies; tl4 - PMHx: 15:56 chronic back pain; COPD; etoh abuse; Hyperlipidemia; Hypertensive disorder; Seizure; tl4 - PSHx: 15:56 Appendectomy; tl4 - Immunization history:: Adult Immunizations unknown. - Infectious Disease History:: Denies. - Social history:: Smoking status: Patient reports the use of cigarette tobacco products, smokes one-half pack cigarettes per day, Patient uses alcohol, on a daily basis. - Family history:: not pertinent. Screenin:05 [facility] ED Fall Risk Assessment (Adult) History of falling in the last 3 months, tl4 including since admission Yes- fall prone (multiple falls) (3 pts) Confusion or Disorientation No (0 pts) Intoxicated or Sedated Yes (3 pts) Impaired Gait No (0 pts) Mobility Assist Device Used No (0 pt) Altered Elimination No (0 pt) Score/Fall Risk Level 3 or more points = High Risk Oriented to surroundings, Maintained a safe environment, Educated pt \\T\\ family on fall prevention, incl call for assistance when getting out of bed, Assessed \\T\\ reinforced patient's understanding of fall precautions, Provided non-skid footwear, Hourly rounding (assess needs \\T\\ fall precautionary measures) done, Used ambulatory aids as needed (educated on \\T\\ assisted with). Abuse screen: Denies threats or abuse. Denies injuries from another. Nutritional screening: pt states she is unable to afford food and has not eaten in a week except for food provided to her by the ED. Tuberculosis screening: No symptoms or risk factors identified. Assessment: 15:25 Reassessment: to bedside for suicide screening, pt states "I am just so tired of living rs5 and I want to ", pt has no plan but wishes to , denies HI, provider notified and sitter at bedside. 15:30 General: Appears in no apparent distress. uncomfortable, Behavior is cooperative, rs5 agitated, anxious. Pain: Denies pain. Neuro: Level of Consciousness is awake, alert, obeys commands, Oriented to person, place, time, situation. Cardiovascular: Patient's skin is warm and dry. Respiratory: Airway is patent Respiratory effort is even, unlabored, Respiratory pattern is regular, symmetrical. GI: Abdomen is round non-distended, Abd is soft and non tender X 4 quads. : No signs and/or symptoms were reported regarding the genitourinary system. EENT: No signs and/or symptoms were reported regarding the EENT system. Derm: Skin is intact, Skin is pink, warm \\T\\ dry. Musculoskeletal: Range of motion: intact in all extremities. 16:45 Reassessment: Patient and/or family updated on plan of care and expected duration. Pain rs5 level reassessed. Patient is alert, oriented x 3, equal unlabored respirations, skin warm/dry/pink. 16:55 Reassessment: report given EMS at bedside. rs5 17:30 Reassessment: Patient and/or family updated on plan of care and expected duration. Pain ld1 level reassessed. Patient is alert, oriented x 3, equal unlabored respirations, skin warm/dry/pink. Psych: 15:30 [place] Suicide Severity Screening: In the past month, have you wished you were ko1 or wished you could go to sleep and not wake up? Patient responds "yes." Based off the client's responses additional C-SSRS screening is required. "In the past month, have you actually had any thoughts of killing yourself?" Patient responds "yes." Based off the client's response additional [place] suicide severity screening questions to be further documented on paper forms. "In your lifetime, have you ever done anything, started to do anything, or prepared to do anything to end your life?" Patient responds "yes." Patient reports suicidal intent within 3 past months. Subjective: Patient's mood is hopeless, Delusions are denied, Hallucinations are denied Having thoughts of suicide. Denies suicidal plan. Objective: Patient is restless, Speech is normal, loud, Affect is inappropriate. Interventions: Removed personal items and placed in bag. Patient placed in hospital gown. Searched person for dangerous items. Belonging list filled out. Safety Checks: Personal items have been removed. Pt has been placed in a hallway bed/chair. Door is open. No visitors are present at this time. Patient uses one pint of liquor, daily. Last use was 2 hours ago. Patient uses tobacco less than a 1/2 a pack Frequency daily, Last use was 4 hours ago. Commitment: Patient will be a voluntary commitment. Vital Signs: 15:30 BP 122 / 86; Pulse 74; Resp 16; Temp 98.7; Pulse Ox 88% on R/A; Weight 67.13 kg (M); tl4 Height 5 ft. 2 in. ; Pain 0/10; 17:00 BP 132 / 84; Pulse 82; Resp 16; Pulse Ox 98% on R/A; ko1 17:25 BP 135 / 80; Pulse 77; Resp 17; Pulse Ox 99% on R/A; ld1 15:30 Body Mass Index 27.07 (67.13 kg, 157.48 cm) tl4 15:30 Pain Scale: Adult tl4 ED Course: 15:26 Patient arrived in ED. hb 15:27 Jesus Hernández MD is Attending Physician. rt 15:30 Arm band placed on. tl4 15:30 Patient has correct armband on for positive identification. Bed in low position. Side tl4 rails up X2. 1:1 observation initiated, pt in psych attire. Provided Education on: ed process, call [facility]. Client placed on continuous cardiac and pulse oximetry monitoring. NIBP monitoring applied. Noise minimized. Lights dimmed. Moved to private room. Warm blanket given. 15:56 Triage completed. tl4 16:06 faxed patient clinical info to the following facilities/ [facility], [facility], and [facility]. 16:15 connected the nurse office receptionist for [facility] with Emanuel Steele for nurse to nurse report. eb 16:23 connected Annie Steele from [facility] with Consuelo Steele for patient transfer consultation. eb 16:27 administrative approval given to Alireza Steele by Annie Mackenzie, patient has been accepted to [facility]/ Dr. Jaswant Valadez has accepted the patient in transfer without conference with Dr. Hernández. 17:00 Diet tray given. PO fluids given. Verbal reassurance given. Cleaned of incontinence. ko1 17:00 No provider procedures requiring assistance completed. IV discontinued, intact, ko1 bleeding controlled, No redness/swelling at site. Pressure dressing applied. 17:41 Emanuel Gomez, RN is Primary Nurse. rs5 Administered Medications: No medications were administered Medication: 16:11 VIS not applicable for this client. tl4 Outcome: 17:00 Transferred by ground EMS [facility]. to other acute care facility: Em[facility]. ko1 Transfer form completed. 17:00 Condition: stable 17:00 Discharge instructions given to patient, EMS, Instructed on the need for transfer, Demonstrated understanding of instructions, 17:15 ER care complete, transfer ordered by MD. rt 17:41 Patient left the ED. ko1 Signatures: Madeleine Calvo, RN Mya Clayton Lauren, RN RN ld1 Consuelo Giron RN RN ko1 Jesus Hernández MD MD rt Emanuel Gomez RN RN rs5 Alireza Paulino RN RN tl4 Corrections: (The following items were deleted from the chart) 16:09 16:02 Arm band placed on tl4 tl4 19:05 19:04 Reassessment: report given EMS at bedside. rs5 rs5
[2024-02-02 18:22] VITALS: TEMP 98.7
[2024-02-02 18:24] VITALS: BP 132/84; O2SAT 98
== END 2024-02-02 17:41 ==
LOC: ER 15:25
DX: R45.851 Suicidal ideations (principal); F10.20 Alcohol dependence, uncomplicated; I10 Essential (primary) hypertension; J44.9 Chronic obstructive pulmonary disease, unspecified; F17.210 Nicotine dependence, cigarettes, uncomplicated
CPT/HCPCS: 36415; 80048; 80076; 80143; 80179; 82077; 85025; 85610; 85730; 99285

== ENCOUNTER 2024-02-09 18:39 | Emergency (ER) | payer OTHER ==
[2024-02-09 19:51] LABS: Absolute Eosinophils 0.3 K/uL (0-0.5); Absolute Monocytes 0.8 K/uL (0.1-1.3); Basophils % 0.7 % (0-1.3); Eosinophils % 4.2 % (0-4.4); Hematocrit 34.5 % (36.0-45.0); Hemoglobin 11.4 g/dL (12.0-15.0); Lymphocytes % 16.8 % (15.3-44.8); MCHC 32.9 g/dL (32.0-36.0); MCV 103.4 fL (80-100); MPV 7.9 fL (7.6-11.3); Monocytes % 12.6 % (3.3-12.3); Neutrophils % 65.7 % (41.7-73.7); Platelets 228 thou/uL (152-406); RBC Red Blood Cell Count 3.34 M/uL (3.86-4.86); Red Cell Distribution Width 15.2 % (12.1-15.2)
[2024-02-09] MEDS ORDERED: THIAMINE 200 MG/2 ML INJ ONE (19:53)
[2024-02-09] MEDS ORDERED: NA CHLORIDE 0.9% 1,000 ML ONE (19:53)
[2024-02-09 19:56] LABS: PT Prothrombin Time 10.3 SECONDS (9.4-12.5); PTT, Activated Partial Thromb 28.8 SECONDS (24.3-36.9); Protime INR 0.92
[2024-02-09 20:12] LABS: Specific Gravity 1.007 (1.005-1.030); Sqamous Epithelial None Seen /HPF (None Seen); Urine Bacteria None Seen /HPF (<20); Urine Bilirubin NEGATIVE (Negative); Urine Blood Negative (Negative); Urine Clarity Clear (Clear); Urine Color Light-Yellow (Yellow); Urine Crystals Unidentified Few /HPF (None Seen); Urine Culture Reflex Order NOT NEEDED; Urine Glucose NEGATIVE (Negative); Urine Ketones NEGATIVE (Negative); Urine Microscopic Reflex YN ORDER UMIC; Urine Nitrite NEGATIVE (Negative); Urine Protein NEGATIVE (Negative); Urine RBC <5 /HPF (None Seen); Urine Urobilinogen Normal (Normal); Urine WBC <5 /HPF (<5); Urine pH 6.5 (5.0-7.0)
[2024-02-09 20:13] LABS: ALT/SGPT 51 U/L (13-56); AST/SGOT 56 U/L (15-37); Albumin 3.1 g/dL (3.4-5.0); Albumin/Globulin Ratio 0.9 (1.1-1.8); Alkaline Phosphatase 71 U/L (45-117); Anion Gap 13.6 mEq/L (5.0-15.0); BUN Blood Urea Nitrogen 19 mg/dL (7-18); Bicarbonate 24 mEq/L (21-32); Bilirubin Direct 0.2 mg/dL (0-0.2); Bilirubin Indirect, Calculated 0.1 mg/dL (0.2-0.8); Bilirubin Total 0.3 mg/dL (0.2-1.0); Globulin 3.6 g/dL (2.3-3.5); Glomerular Filtration Rate 100 ml/min (=/>90); Glucose Level 77 mg/dL (74-106); Potassium 3.6 mEq/L (3.5-5.1); Protein, Total 6.7 g/dL (6.4-8.2); Sodium Level 139 mEq/L (136-145)
[2024-02-09 20:16] LABS: Barbiturates NEGATIVE (NEGATIVE); Benzodiazepines POSITIVE (NEGATIVE); Cocaine NEGATIVE (NEGATIVE); METHAMPHETAM NEGATIVE (NEGATIVE); Methadone NEGATIVE (NEGATIVE); Opiates NEGATIVE (NEGATIVE); Phencyclidine NEGATIVE (NEGATIVE); THC Cannibis NEGATIVE (NEGATIVE)
--- NOTE | 2024-02-09 20:47 | RAD REPORT ---
EXAM DESCRIPTION: CT - CTHCSPWOC - 02/09/2024 8:17 pm CLINICAL HISTORY: fall COMPARISON: Head C Spine Mpr Wo Con dated 02/01/2024; Head C Spine Mpr Wo Con dated 12/12/2023; Head C Spine Mpr Wo Con dated 12/05/2023; Head C Spine Mpr Wo Con dated 11/06/2022 TECHNIQUE: Axial thin cut noncontrast CT images of the head were obtained. Axial thin cut noncontrast CT images of the cervical spine were obtained. Multiplanar reformatted images were generated and reviewed. All CT scans are performed using dose optimization technique as appropriate and may include automated exposure control or mA/KV adjustment according to patient size. FINDINGS: CT HEAD WITHOUT CONTRAST: No acute hemorrhage, hydrocephalus or extra-axial collection is identified. Stable ventricular calibe r and stable patchy subcortical and deep white matter hypodensities, nonspecific, but suggestive of c hronic small vessel ischemic changes. No areas of brain edema or midline shift. The paranasal sinuses and mastoids are clear.The calvarium is intact. CT CERVICAL SPINE WITHOUT CONTRAST: No fracture or subluxation.No prevertebral soft tissues swelling is identified. IMPRESSION: No acute traumatic intracranial or cervical spine findings.
--- NOTE | 2024-02-09 20:54 | RAD REPORT ---
EXAM DESCRIPTION: CT - Chest Abd Pelvis Wo Con - 02/09/2024 8:18 pm CLINICAL HISTORY: TRAUMA COMPARISON: Thorax Wo Con dated 12/28/2016; THORAX WO CONTRAST dated 07/15/2015; CT-LOW DOSE CT CHEST SCREENING dated 01/20/2015; THORAX W CONTRAST dated 11/13/2007; Abdomen Pelvis W Contrast dated 2022 TECHNIQUE: Thin axial CT images of the chest, abdomen, and pelvis, performed without IV contrast. Mu ltiplanar reformats were generated and reviewed. All CT scans are performed using dose optimization technique as appropriate and may include automated exposure control or mA/KV adjustment according to patient size. FINDINGS: The lungs are clear apart from dependent bilateral atelectatic changes.No pleural or peric ardial effusion.No intrathoracic adenopathy. The liver, spleen, pancreas, adrenal glands and kidneys are within normal limits. No bowel obstruction, free air, free fluid or abscess. Small paraesophageal hernia. Mild colonic div erticulosis. No pathologic lymphadenopathy in the abdomen or pelvis. No worrisome osseous finding. Moderate degenerative changes throughout the thoracolumbar spine. Aband oned pain pump catheter along the right flank and within the spinal canal. IMPRESSION: No acute traumatic findings. Incidental findings as above, including a small paraesophageal hernia and mild colonic diverticulosis .
--- NOTE | 2024-02-09 22:03 | ER ---
Nurse's Notes [facility] Name: Heaven Bhatia Age: 63 yrs Sex: Female : 1960 Arrival Date: 02/09/2024 Time: 18:39 Bed 13 Private MD: Diagnosis: Alcohol abuse with intoxication, unspecified;Fall on same level, unspecified Presentation: 02/08 19:12 Chief complaint: EMS states: toned out multiple times for falls today. Patient states me1 she has been drinking today, smells of ETOH. 20g LFA with NS infusing and was given zofran 4 mg IV. Denies pain. Coronavirus screen: Vaccine status: Patient reports being unvaccinated. Ebola Screen: No symptoms or risks identified at this time. Initial Sepsis Screen: Does the patient meet any 2 criteria? No. Patient's initial sepsis screen is negative. Does the patient have a suspected source of infection? No. Patient's initial sepsis screen is negative. Risk Assessment: Do you want to hurt yourself or someone else? Patient reports no desire to harm self or others. Onset of symptoms was February 09, 2024. 19:12 Method Of Arrival: EMS: [facility] 19:12 Acuity: [id number] 3 me1 Triage Assessment: 19:18 General: Appears comfortable, unkempt, well developed, well nourished, Behavior is me1 calm, cooperative, appropriate for age, Smells of alcohol, urine. Pain: Denies pain. EENT: No signs and/or symptoms were reported regarding the EENT system. Neuro: Level of Consciousness is awake, alert, obeys commands, Oriented to person, place, time, situation, Appropriate for age. Cardiovascular: Patient's skin is warm and dry. Respiratory: Airway is patent Respiratory effort is even, unlabored, Respiratory pattern is regular, symmetrical. GI: No signs and/or symptoms were reported involving the gastrointestinal system. : No signs and/or symptoms were reported regarding the genitourinary system. Derm: Skin is intact, is healthy with good turgor, Skin is pink, warm \\T\\ dry. Musculoskeletal: No signs and/or symptoms reported regarding the musculoskeletal system. Historical: - Allergies: 19:18 No Known Drug Allergies; me1 - PMHx: 19:18 chronic back pain; COPD; etoh abuse; Hyperlipidemia; Hypertensive disorder; Seizure; me1 - PSHx: 19:18 Appendectomy; me1 - Immunization history:: Adult Immunizations up to date. - Infectious Disease History:: Denies. - Social history:: Smoking status: Patient reports the use of cigarette tobacco products, smokes one pack cigarettes per day. Screenin:20 [facility] ED Fall Risk Assessment (Adult) History of falling in the last 3 months, sd1 including since admission Yes- fall prone (multiple falls) (3 pts) Confusion or Disorientation No (0 pts) Intoxicated or Sedated Yes (3 pts) Impaired Gait Yes (1 pt) Mobility Assist Device Used Yes (1 pt) Altered Elimination Yes (1 pt) Score/Fall Risk Level 3 or more points = High Risk Maintained a safe environment, Hourly rounding (assess needs \\T\\ fall precautionary measures) done, Used ambulatory aids as needed (educated on \\T\\ assisted with). Abuse screen: Denies threats or abuse. Nutritional screening: No deficits noted. Tuberculosis screening: No symptoms or risk factors identified. Assessment: 19:20 General: see triage assessment. . me1 Psych: 19:57 [place] Suicide Severity Screening: In the past month, have you wished you were me1 or wished you could go to sleep and not wake up? Patient responds "No." "In the past month, have you actually had any thoughts of killing yourself?" Patient responds "no." "In your lifetime, have you ever done anything, started to do anything, or prepared to do anything to end your life?" Patient responds "no.". Subjective: Patient's mood is sad, Delusions are denied, Hallucinations are denied Having thoughts of Denies SI and HI. Objective: Patient is cooperative, Speech is normal, Affect is appropriate. Patient uses one fifth of liquor, daily. Last use was 2 hours ago. Patient does not have a history of DTs. Vital Signs: 19:00 BP 111 / 73; Pulse 85; Resp 17; Temp 98.4; Pulse Ox 96% ; me1 20:30 BP 127 / 70; Pulse 87; Resp 16; Pulse Ox 97% ; me1 22:15 BP 122 / 67; Pulse 82; Resp 16; Pulse Ox 94% on R/A; me1 ED Course: 18:47 Patient arrived in ED. ll1 18:48 Ioana Kahn PA-C is PHCP. sb4 18:48 Zach Hernandez MD is Attending Physician. sb4 19:12 Vida Cat, RN is Primary Nurse. me1 19:18 Triage completed. me1 19:18 Arm band placed on Patient placed in an exam room. me1 19:20 Patient has correct armband on for positive identification. Bed in low position. Call me1 light in reach. Side rails up X2. Provided Education on: POC. Verbalized understanding. . Client placed on continuous cardiac and pulse oximetry monitoring. NIBP monitoring applied. Pulse ox on. NIBP on. 19:20 No provider procedures requiring assistance completed. me1 19:32 Initial lab(s) drawn, by me, sent to lab. ty 19:32 Maintain EMS IV. Dressing intact. Good blood return noted. Site clean \\T\\ dry. Gauge \\T\\ ty site: 20G in Left Forearm. Flushed with 10 mL NS. 19:33 Acetaminophen Sent. ty 19:33 Basic Metabolic Panel Sent. ty 19:33 CBC with Diff Sent. ty 19:33 ETOH Level Sent. ty 19:34 Hepatic Function Sent. ty 19:34 PT-INR Sent. ty 19:34 Ptt, Activated Sent. ty 19:34 Salicylate Sent. ty 19:52 Urinalysis w/ reflexes Sent. me1 19:52 Urine Drug Screen Sent. me1 19:52 Urine collected: clean catch specimen, cloudy. me1 20:19 CT Head C Spine In Process Unspecified. EDMS 20:20 CT Chest Abdomen Pelvis W/O Contrast In Process Unspecified. EDMS 22:16 IV discontinued, intact, bleeding controlled, No redness/swelling at site. Pressure me1 dressing applied. Administered Medications: 19:56 Drug: NS 0.9% IV 1000 ml IV at 1 bolus Per protocol; 1000 mL bolus Route: IV; Rate: 1 me1 bolus; Site: left forearm; 22:16 Follow up: Response: No adverse reaction; IV Status: Completed infusion; IV Intake: me1 1000ml 19:56 Drug: Thiamine IV 100 mg IV at calculated rate once Route: IV; Rate: calculated rate; me1 Site: left forearm; 22:17 Follow up: IV Status: Completed infusion me1 22:17 Follow up: Response: No adverse reaction me1 Medication: 19:20 VIS not applicable for this client. me1 Intake: 22:16 IV: 1000ml; Total: 1000ml. me1 Outcome: 22:03 Discharge ordered by . nolvia 22:41 Discharged to home via wheelchair, with friend, me1 22:41 Condition: stable 22:41 Discharge instructions given to patient, friend, Instructed on discharge instructions, follow up and referral plans. Demonstrated understanding of instructions, follow-up care, 22:42 Patient left the ED. me1 Signatures: Dispatcher [employer] Estuardo Ramirez, RN RN ll1 Ioana Kahn, PA-C PA-C Vida Ledezma RN RN me1 Abdoulaye Harper Corrections: (The following items were deleted from the chart) 19:21 19:20 General: Appears me1 me1 22:41 22:15 BP 122 / 67; Pulse 82bpm; Resp 16bpm; Pulse Ox 98%; me1 me1
--- NOTE | 2024-02-09 22:03 | EDPHYS ---
Physician Documentation [facility] Name: Heaven Bhatia Age: 63 yrs Sex: Female : 1960 Arrival Date: 02/09/2024 Time: 18:39 Bed 13 Private MD: ED Physician Zach Hernandez HPI: 02/08 18:50 This 63 yrs old Female presents to ER via Unassigned with complaints of ETOH Abuse, sb4 Fall Injury. 18:54 patient presents with complaints of a fall. she has called EMS 3 times today for falls. sb4 she has been drinking alcohol all day. Historical: - Allergies: 19:18 No Known Drug Allergies; me1 - PMHx: 19:18 chronic back pain; COPD; etoh abuse; Hyperlipidemia; Hypertensive disorder; Seizure; me1 - PSHx: 19:18 Appendectomy; me1 - Immunization history:: Adult Immunizations up to date. - Infectious Disease History:: Denies. - Social history:: Smoking status: Patient reports the use of cigarette tobacco products, smokes one pack cigarettes per day. ROS: 18:55 Constitutional: Negative for fever, chills, and weight loss, sb4 Exam: 18:55 Head/Face: Normocephalic, atraumatic. Eyes: Extra-ocular motions intact. Periorbital sb4 areas with no swelling, redness, or edema. 18:55 Constitutional: The patient appears smells of urine, unkempt, Vital Signs: 19:00 BP 111 / 73; Pulse 85; Resp 17; Temp 98.4; Pulse Ox 96% ; me1 20:30 BP 127 / 70; Pulse 87; Resp 16; Pulse Ox 97% ; me1 22:15 BP 122 / 67; Pulse 82; Resp 16; Pulse Ox 94% on R/A; me1 MDM: 18:48 Patient medically screened. sb4 19:03 Care significantly affected by the following Social Determinants of Health: Inadequate sb4 housing, Misuse of alcohol and/or drugs. 22:02 Data reviewed: vital signs, nurses notes, EMS record, lab test result(s), radiologic sb4 studies, and as a result, I will discharge patient. Counseling: I had a detailed discussion with the patient and/or guardian regarding the historical points, exam findings, and any diagnostic results supporting the discharge/admit diagnosis, lab results, radiology results, to return to the emergency department if symptoms worsen or persist or if there are any questions or concerns that arise at home. 02/08 18:50 Order name: Acetaminophen; Complete Time: 20:16 4 02/08 18:50 Order name: Basic Metabolic Panel; Complete Time: 20:16 sb4 02/08 18:50 Order name: CBC with Diff; Complete Time: 20:01 4 02/08 18:50 Order name: ETOH Level; Complete Time: 20:16 sb4 02/08 18:50 Order name: Hepatic Function; Complete Time: 20:16 sb4 02/08 18:50 Order name: PT-INR; Complete Time: 20:01 sb4 02/08 18:50 Order name: Test, Urine; Complete Time: 20:16 sb4 02/08 18:50 Order name: Ptt, Activated; Complete Time: 20:01 4 02/08 18:50 Order name: Salicylate; Complete Time: 20:16 4 02/08 18:50 Order name: Urinalysis w/ reflexes; Complete Time: 20:16 sb4 02/08 18:50 Order name: Urine Drug Screen; Complete Time: 20:19 sb4 02/08 18:50 Order name: CT Head C Spine; Complete Time: 20:55 sb4 02/08 18:50 Order name: CT Chest Abdomen Pelvis W/O Contrast; Complete Time: 20:55 sb4 02/08 18:50 Order name: IV Saline Lock; Complete Time: 19:22 sb4 02/08 18:50 Order name: Labs collected and sent; Complete Time: 19:22 [facility] 02/08 18:50 Order name: Suicide Precautions; Complete Time: 19:57 sb4 Administered Medications: 19:56 Drug: NS 0.9% IV 1000 ml IV at 1 bolus Per protocol; 1000 mL bolus Route: IV; Rate: 1 me1 bolus; Site: left forearm; 22:16 Follow up: Response: No adverse reaction; IV Status: Completed infusion; IV Intake: me1 1000ml 19:56 Drug: Thiamine IV 100 mg IV at calculated rate once Route: IV; Rate: calculated rate; me1 Site: left forearm; 22:17 Follow up: IV Status: Completed infusion me1 22:17 Follow up: Response: No adverse reaction me1 Disposition Summary: 02/09/24 22:03 Discharge Ordered Notes: Location: Home sb4 Problem: new sb4 Symptoms: have improved sb4 Condition: Stable sb4 Diagnosis - Alcohol abuse with intoxication, unspecified sb4 - Fall on same level, unspecified sb4 Followup: sb4 - With: Private Physician - When: As needed - Reason: Recheck today's complaints, Re-evaluation by your physician Discharge Instructions: - Discharge Summary Sheet sb4 Forms: - Patient Portal Instructions sb4 - Leadership Thank You Letter sb4 Addendum: 02/16/2024 15:42 Co-signature as Attending Physician, Zach Hernandez MD I agree with the assessment and c maguire plan of care. Signatures: Dispatcher [employer] EDMS Zach Hernandez MD MD cha Brown, Sophia, PAMeganC PAMeganC sb4 Vida Cat RN RN me1 Corrections: (The following items were deleted from the chart) 02/08 18:51 18:51 ACETAMINOPHEN+C.LAB.BRZ ordered. EDMS EDMS 18:51 18:51 BASIC METABOLIC PANEL+C.LAB.BRZ ordered. EDMS EDMS 18:51 18:51 CBC+H.LAB.BRZ ordered. EDMS EDMS 18:51 18:51 ETHANOL+C.LAB.BRZ ordered. EDMS EDMS 18:51 18:51 HEPATIC FUNCTION+C.LAB.BRZ ordered. EDMS EDMS 18:51 18:51 PROTIME (+INR)+COAG.LAB.BRZ ordered. EDMS EDMS 18:51 18:51 Test, Urine+UC.LAB.BRZ ordered. EDMS EDMS 18:51 18:51 PTT, ACTIVATED+COAG.LAB.BRZ ordered. EDMS EDMS 18:51 18:51 SALICYLATE+C.LAB.BRZ ordered. EDMS EDMS 18:51 18:51 Urinalysis+U.LAB.BRZ ordered. EDMS EDMS 18:51 18:51 URINE DRUG SCREEN+UC.LAB.BRZ ordered. EDMS EDMS
[2024-02-09 22:46] VITALS: TEMP 98.4
[2024-02-09 22:49] VITALS: BP 122/67; O2SAT 94
== END 2024-02-09 22:42 | disposition home or self-care (01) ==
LOC: ER 18:39
DX: F10.129 Alcohol abuse with intoxication, unspecified (principal); W18.30XA Fall on same level, unspecified, initial encounter; I10 Essential (primary) hypertension; J44.9 Chronic obstructive pulmonary disease, unspecified; E78.5 Hyperlipidemia, unspecified; F17.210 Nicotine dependence, cigarettes, uncomplicated
CPT/HCPCS: 96365; 85025; 81001; 80048; 36415; 81025; 85610; 80076; 85730; 80307; 70450; 71250; 72125; 74176; 99284; 96366; 80143; 80179; 82077; J3411; J7030

== ENCOUNTER 2024-03-04 01:10 | Emergency (ER) | payer OTHER ==
[2024-03-04 02:04] LABS: Absolute Eosinophils 0.7 K/uL (0-0.5); Absolute Lymphocytes (CBC) 2.4 K/uL (0.7-4.9); Absolute Neutrophil 6.2 K/uL (1.8-8.0); Basophils % 0.4 % (0-1.3); Eosinophils % 6.8 % (0-4.4); Hematocrit 34.2 % (36.0-45.0); Hemoglobin 11.8 g/dL (12.0-15.0); Lymphocytes % 23.7 % (15.3-44.8); MCH 33.5 pg (27.0-35.0); MCHC 34.4 g/dL (32.0-36.0); MCV 97.4 fL (80-100); MPV 7.2 fL (7.6-11.3); Monocytes % 9.4 % (3.3-12.3); Neutrophils % 59.7 % (41.7-73.7); Nucleated Red Blood Cells % 0.1 % (0-0); Platelets 286 thou/uL (152-406); RBC Red Blood Cell Count 3.51 M/uL (3.86-4.86); Red Cell Distribution Width 14.4 % (12.1-15.2)
[2024-03-04 02:08] LABS: PT Prothrombin Time 10.9 SECONDS (9.4-12.5); PTT, Activated Partial Thromb 29.9 SECONDS (24.3-36.9); Protime INR 0.97
[2024-03-04 02:22] LABS: ALT/SGPT 21 U/L (13-56); AST/SGOT 19 U/L (15-37); Albumin 3.1 g/dL (3.4-5.0); Albumin/Globulin Ratio 0.8 (1.1-1.8); Alkaline Phosphatase 65 U/L (45-117); BUN Blood Urea Nitrogen 9 mg/dL (7-18); Bicarbonate 24 mEq/L (21-32); Bilirubin Total 0.2 mg/dL (0.2-1.0); Globulin 3.8 g/dL (2.3-3.5); Glomerular Filtration Rate 103 ml/min (=/>90); Glucose Level 97 mg/dL (74-106); Protein, Total 6.9 g/dL (6.4-8.2); Sodium Level 136 mEq/L (136-145)
[2024-03-04 02:24] LABS: Bilirubin Direct < 0.2 mg/dL (0-0.2)
[2024-03-04 03:09] LABS: Barbiturates NEGATIVE (NEGATIVE); Benzodiazepines NEGATIVE (NEGATIVE); Cocaine NEGATIVE (NEGATIVE); METHAMPHETAM NEGATIVE (NEGATIVE); Methadone NEGATIVE (NEGATIVE); Opiates NEGATIVE (NEGATIVE); Phencyclidine NEGATIVE (NEGATIVE); THC Cannibis NEGATIVE (NEGATIVE)
[2024-03-04 03:31] LABS: Specific Gravity 1.007 (1.005-1.030); Urine Bilirubin NEGATIVE (Negative); Urine Blood Negative (Negative); Urine Clarity Clear (Clear); Urine Color Light-Yellow (Yellow); Urine Glucose NEGATIVE (Negative); Urine Ketones NEGATIVE (Negative); Urine Microscopic Reflex YN NO UMIC; Urine Nitrite NEGATIVE (Negative); Urine Protein NEGATIVE (Negative); Urine Urobilinogen Normal (Normal)
[2024-03-04] MEDS ORDERED: THIAMINE 200 MG/2 ML INJ ONE (08:01)
[2024-03-04] MEDS ORDERED: MULTIVITAMINS 10 ML VIAL (INJ) IV ONE (08:01)
[2024-03-04] MEDS ORDERED: NA CHLORIDE 0.9% 1,000 ML ONE (08:02)
[2024-03-04] MEDS ORDERED: FOLIC ACID 5 MG/ML VIAL ONE (08:02)
[2024-03-04] MEDS ORDERED: NICOTINE 21 MG/PAT TD ONE (09:35)
[2024-03-04] MEDS ORDERED: LORazepam 2 MG/ML VIAL ONE (09:35)
--- NOTE | 2024-03-04 09:37 | ER ---
Nurse's Notes [facility] Name: Heaven Bhatia Age: 63 yrs Sex: Female : 1960 Arrival Date: 03/04/2024 Time: 01:10 Bed 18 Private MD: Diagnosis: Major depressive disorder, recurrent, moderate;Alcohol abuse with intoxication;Suicidal ideations Presentation: 03/04 01:17 Chief complaint: EMS states: PT called 911 that she has a knife on her throat, express rg5 suicidal ideation. She was brought to ED with BEATRIZ. 01:17 Coronavirus screen: Client denies travel out of the [place] in the last 14 days. Ebola rg5 Screen: Patient negative for fever greater than or equal to 101.5 degrees Fahrenheit, and additional compatible Ebola Virus Disease symptoms. Initial Sepsis Screen: Does the patient meet any 2 criteria? No. Patient's initial sepsis screen is negative. Does the patient have a suspected source of infection? No. Patient's initial sepsis screen is negative. Risk Assessment: Do you want to hurt yourself or someone else? Other: has suicidal ideation. Onset of symptoms was March 04, 2024. 01:17 Method Of Arrival: EMS: [facility] rg5 01:17 Acuity: MARILYNN 3 rg5 Triage Assessment: 01:17 General: Appears in no apparent distress. Behavior is calm, quiet. Pain: Denies pain. rg5 EENT: No deficits noted. Neuro: Level of Consciousness is awake, alert, obeys commands, Oriented to person, place, time. Cardiovascular: Capillary refill < 3 seconds Patient's skin is warm and dry. Respiratory: Airway is patent Trachea midline Respiratory effort is even, unlabored, Respiratory pattern is regular, symmetrical. GI: Abdomen is round non-distended, Abd is soft and non tender. : No signs and/or symptoms were reported regarding the genitourinary system. Derm: Skin is intact, Skin is dry, Skin is normal, Skin temperature is warm. Musculoskeletal: Circulation, motion, and sensation intact. Range of motion: intact in all extremities. Historical: - Allergies: 01:17 No Known Allergies; rg5 - PMHx: 01:17 chronic back pain; COPD; etoh abuse; Hyperlipidemia; Hypertensive disorder; rg5 - PSHx: 01:17 Appendectomy; rg5 - Immunization history:: Adult Immunizations up to date, Client reports receiving the 1st dose of the Covid vaccine. - Infectious Disease History:: Denies. - Social history:: Smoking status: Patient uses alcohol. - Family history:: not pertinent. Screenin:17 [facility] ED Fall Risk Assessment (Adult) History of falling in the last 3 months, rg5 including since admission Yes- single mechanical fall (1 pt) Confusion or Disorientation No (0 pts) Intoxicated or Sedated Yes (3 pts) Impaired Gait Yes (1 pt) Mobility Assist Device Used No (0 pt) Altered Elimination No (0 pt) Score/Fall Risk Level 3 or more points = High Risk Oriented to surroundings, Maintained a safe environment, Hourly rounding (assess needs \\T\\ fall precautionary measures) done. Abuse screen: Denies threats or abuse. Nutritional screening: No deficits noted. Tuberculosis screening: No symptoms or risk factors identified. Assessment: 01:17 Reassessment: see triage assessment. rg5 02:00 General: Appears comfortable, Behavior is calm, cooperative, Smells of alcohol. rg5 02:00 Neuro: Oriented to person, place, time. Respiratory: Airway is patent Trachea midline rg5 Respiratory effort is even, unlabored, Respiratory pattern is regular, symmetrical. 02:00 Neuro: Reports suicidal ideation. rg5 03:31 Reassessment: No changes from previously documented assessment. Patient and/or family rg5 updated on plan of care and expected duration. Pain level reassessed. Patient is alert, oriented x 3, equal unlabored respirations, skin warm/dry/pink. 04:33 Reassessment: Patient and/or family updated on plan of care and expected duration. Pain rg5 level reassessed. Patient is alert, oriented x 3, equal unlabored respirations, skin warm/dry/pink. General: Appears comfortable, Behavior is calm, cooperative. Respiratory: Airway is patent Trachea midline Respiratory effort is even, unlabored, Respiratory pattern is regular, symmetrical. 05:00 Reassessment: No changes from previously documented assessment. Patient and/or family rg5 updated on plan of care and expected duration. Pain level reassessed. Respiratory: Airway is patent Respiratory effort is even, unlabored. 06:15 Reassessment: No changes from previously documented assessment. Patient and/or family rg5 updated on plan of care and expected duration. Pain level reassessed. Respiratory: Airway is patent Respiratory effort is even, unlabored, Respiratory pattern is regular, symmetrical. 07:00 Reassessment: Patient appears in no apparent distress at this time. Patient and/or mb9 family updated on plan of care and expected duration. Pain level reassessed. Patient is alert, oriented x 3, equal unlabored respirations, skin warm/dry/pink. SI precautions in place. 08:00 Reassessment: No changes from previously documented assessment. Patient and/or family mb9 updated on plan of care and expected duration. Pain level reassessed. Si precautions in place. Sitter at bedside. 08:46 Reassessment: Pt soiled herself. Pt refused to be changed. mb9 09:00 Reassessment: Patient is alert, oriented x 3, equal unlabored respirations, skin mb9 warm/dry/pink. Si precautions in place. Sitter at bedside. 10:00 Reassessment: Patient is alert, oriented x 3, equal unlabored respirations, skin mb9 warm/dry/pink. SI precautions in place. Sitter at bedside. 11:00 Reassessment: nurse to nurse with Sharif from [facility]. mb9 11:00 Reassessment: Patient and/or family updated on plan of care and expected duration. Pain mb9 level reassessed. Patient is alert, oriented x 3, equal unlabored respirations, skin warm/dry/pink. SI precautions in place. Sitter at bedside. 12:00 Reassessment: Patient is alert, oriented x 3, equal unlabored respirations, skin mb9 warm/dry/pink. SI precautions in place. Sitter at bedside. 13:00 Reassessment: Patient is alert, oriented x 3, equal unlabored respirations, skin mb9 warm/dry/pink. SI precautions in place. Sitter at bedside. 13:51 Reassessment: Report given to [facility]. mb9 Psych: 01:17 [place] Suicide Severity Screening: In the past month, have you wished you were rg5 or wished you could go to sleep and not wake up? Patient responds "yes." "In the past month, have you actually had any thoughts of killing yourself?" Patient responds "yes." "In your lifetime, have you ever done anything, started to do anything, or prepared to do anything to end your life?" Patient responds "no.". 01:17 Subjective: Having thoughts of suicide. Plan for suicide is with a knife. Objective: rg5 Patient is cooperative, irritable, using poor eye contact. Interventions: Removed personal items and placed in bag. Patient placed in hospital gown. Searched person for dangerous items. Urine collected and sent for urine drug test. Belonging list filled out. Safety Checks: Personal items have been removed. Door is open. No visitors are present at this time. Patient uses Last use was 1 hours ago. Commitment: Patient will be an involuntary commitment. Vital Signs: 01:38 BP 99 / 67 LA Sitting (auto/reg); Pulse 80 LA; Resp 14 S; Temp 97.8(TE); Pulse Ox 84% ; ty Weight 67.4 kg; Height 5 ft. 2 in. ; Pain 10/10; 01:40 Pulse Ox 95% on 3 lpm NC; ty 02:25 BP 118 / 75; Pulse 84; Resp 17; Pulse Ox 99% on R/A; Pain 0/10; rg5 03:22 BP 129 / 88; Pulse 77; Resp 18; Pulse Ox 100% on R/A; Pain 0/10; rg5 04:30 BP 98 / 78; Pulse 73; Resp 16; Pulse Ox 99% on 2 lpm NC; Pain 0/10; rg5 05:00 BP 149 / 87; Pulse 81; Resp 16; Temp 98; Pain 0/10; rg5 13:52 BP 142 / 84; Pulse 80; Resp 16; Pulse Ox 98% on R/A; mb9 01:38 Body Mass Index 27.18 (67.40 kg, 157.48 cm) ty 01:38 Pain Scale: Adult ty 02:25 Pain Scale: Adult rg5 03:22 Pain Scale: Adult rg5 04:30 Pain Scale: Adult rg5 05:00 Pain Scale: Adult rg5 ED Course: 00:17 Safety Checks: Personal items have been removed. The door is open or patient has been rg5 placed in a hallway bed/chair. Sitter present at this time. 00:17 monitor car operator on. Pulse ox on. Sitter at bedside. Verbal reassurance given. Head of rg5 bed elevated. 01:17 Patient arrived in ED. rv1 01:17 No provider procedures requiring assistance completed. rg5 01:17 Arm band placed on left wrist. rg5 01:17 Patient has correct armband on for positive identification. Call light in reach. Side rg5 rails up X 1. 01:18 Jesus Hernández MD is Attending Physician. rt 01:18 Hrebie Frank, ELIANE is Primary Nurse. rg5 01:42 Inserted saline lock: 22 gauge in right forearm, using aseptic technique. Blood ty collected. Flushed with 10 mL NS. 01:44 Initial lab(s) drawn, by me, sent to lab. ty 01:45 Triage completed. rg5 01:49 Acetaminophen Sent. ty 01:49 Basic Metabolic Panel Sent. ty 01:49 CBC with Diff Sent. ty 01:49 ETOH Level Sent. ty 01:49 Hepatic Function Sent. ty 01:49 PT-INR Sent. ty 01:49 Ptt, Activated Sent. ty 01:49 Salicylate Sent. ty 02:00 Repositioned patient. Cleaned of incontinence. Linen changed. rg5 04:33 No apparent distress. Resting quietly. Appears to be sleeping. rg5 06:16 Resting quietly. Appears to be sleeping. rg5 07:47 Attending Physician role handed off by Jesus Hernández MD the [facility] 07:47 Zach Hernandez MD is Attending Physician. enrike 10:39 faxed chart to [facility]. bd 11:48 IV discontinued, intact, bleeding controlled, No redness/swelling at site. Pressure mb9 dressing applied. 12:31 pt accepted in transfer to [facility] by dr Cohen admin approval given by Severiano Kaiser Administered Medications: 08:34 Drug: Banana Bag - (Multivitamin IV 1 amp, NS 0.9% IV 1000 ml, Thiamine IV 100 mg, mb9 foLIC Acid IVPB 1 mg) IV at 500 ml/hr once Route: IV; Rate: 500 ml/hr; Site: right forearm; 09:50 Follow up: Response: No adverse reaction; IV Status: Completed infusion mb9 08:34 Drug: Thiamine IV 100 mg IV at bolus once Route: IV; Rate: bolus; Site: right forearm; mb9 13:25 Follow up: Response: No adverse reaction; IV Status: Completed infusion mb9 09:42 Drug: Nicoderm CQ Transdermal Patch 21 mg/24 hr 21 mg Transdermal once Route: mb9 Transdermal; Site: affected area; 13:25 Follow up: Response: No adverse reaction mb9 09:50 Drug: Ativan IVP 1 mg IVP once Route: IVP; Site: right forearm; mb9 10:58 Follow up: Response: No adverse reaction mb9 09:50 Drug: Ativan IVP 1 mg IVP once Route: IVP; Site: right forearm; mb9 10:58 Follow up: Response: No adverse reaction mb9 Medication: 01:17 VIS not applicable for this client. rg5 Outcome: 09:37 ER care complete, transfer ordered by MD. calvert 11:48 Transferred by ground EMS Transfer form completed. X-rays sent w/ patient. Note: Sun mb9 [facility] 11:48 Condition: stable 11:48 Instructed on the need for transfer, 13:53 Patient left the ED. mb9 Signatures: Shameka Willson Corey, MD MD cha Wilkerson, Coreen Sheth, RN RN mb9 Jesus Hernández MD MD rt Villegas, Rebecca rv1 Abdoulaye Harper Rommel, ELIANE RN rg5 Corrections: (The following items were deleted from the chart) 01:53 01:38 BP 99 / 67 Sitting Auto L Arm Regular; Pulse 80bpm Left Arm; Resp 14bpm; ty Spontaneous; Pulse Ox 84%; Temp 97.8F Temporal; Pain 10/10, Adult; ty
--- NOTE | 2024-03-04 09:37 | EDPHYS ---
Physician Documentation [facility] Name: Heaven Bhatia Age: 63 yrs Sex: Female : 1960 Arrival Date: 03/04/2024 Time: 01:10 Bed 18 Private MD: ED Physician Zach Hernandez HPI: 03/04 02:29 This 63 yrs old Female presents to ER via EMS with complaints of suicidal ideation. rt 02:29 Patient presents to the ED with suicidal ideation. Patient reportedly had a knife to rt her throat. States that she is always suicidal. Denies other acute complaints, symptoms are moderate in severity, no other aggravating or elevating factors.. Historical: - Allergies: 01:17 No Known Allergies; rg5 - PMHx: :17 chronic back pain; COPD; etoh abuse; Hyperlipidemia; Hypertensive disorder; rg5 - PSHx: 01:17 Appendectomy; rg5 - Immunization history:: Adult Immunizations up to date, Client reports receiving the 1st dose of the Covid vaccine. - Infectious Disease History:: Denies. - Social history:: Smoking status: Patient uses alcohol. - Family history:: not pertinent. ROS: 02:29 Psych: Positive for suicide gesture, suicidal ideation, rt 02:29 Unable to obtain ROS due to patient being uncooperative, Exam: 02:29 Constitutional: This is a well developed, well nourished patient who is awake, alert, rt and in no acute distress. Head/Face: Normocephalic, atraumatic. Chest/axilla: Normal chest wall appearance and motion. Nontender with no deformity. No lesions are appreciated. Cardiovascular: Regular rate and rhythm with a normal S1 and S2. No gallops, murmurs, or rubs. Normal PMI, no JVD. No pulse deficits. Respiratory: Lungs have equal breath sounds bilaterally, clear to auscultation and percussion. No rales, rhonchi or wheezes noted. No increased work of breathing, no retractions or nasal flaring. Abdomen/GI: Soft, non-tender, with normal bowel sounds. No distension or tympany. No guarding or rebound. No evidence of tenderness throughout. Skin: Warm, dry with normal turgor. Normal color with no rashes, no lesions, and no evidence of cellulitis. 02:29 Psych: Cooperative, reports SI. 02:45 ECG was reviewed by the Attending Physician. rt Vital Signs: 01:38 BP 99 / 67 LA Sitting (auto/reg); Pulse 80 LA; Resp 14 S; Temp 97.8(TE); Pulse Ox 84% ; ty Weight 67.4 kg; Height 5 ft. 2 in. ; Pain 10/10; 01:40 Pulse Ox 95% on 3 lpm NC; ty 02:25 BP 118 / 75; Pulse 84; Resp 17; Pulse Ox 99% on R/A; Pain 0/10; rg5 03:22 BP 129 / 88; Pulse 77; Resp 18; Pulse Ox 100% on R/A; Pain 0/10; rg5 04:30 BP 98 / 78; Pulse 73; Resp 16; Pulse Ox 99% on 2 lpm NC; Pain 0/10; rg5 05:00 BP 149 / 87; Pulse 81; Resp 16; Temp 98; Pain 0/10; rg5 13:52 BP 142 / 84; Pulse 80; Resp 16; Pulse Ox 98% on R/A; mb9 01:38 Body Mass Index 27.18 (67.40 kg, 157.48 cm) ty 01:38 Pain Scale: Adult ty 02:25 Pain Scale: Adult rg5 03:22 Pain Scale: Adult rg5 04:30 Pain Scale: Adult rg5 05:00 Pain Scale: Adult rg5 MDM: 01:18 Patient medically screened. rt 07:48 Differential Diagnosis altered mental status, sepsis, flu. Data reviewed: vital signs, peoples hospital nurses notes, lab test result(s), EKG. Consideration of Admission/Observation Escalation of care including admission/observation considered. I considered the following discharge prescriptions or medication management in the emergency department Medications were administered in the Emergency Department. See MAR. Independent interpretation of the following test(s) in the Emergency Department EKG: See my EKG interpretation above. Test considered but Not performed: CT: no ct brain. Historians other than the Patient: EMS: ems well informed. Care significantly affected by the following chronic conditions: Hypertension, Chronic Obstructive Pulmonary Disease, Obesity, cbp, etoh abuse. Counseling: I had a detailed discussion with the patient and/or guardian regarding the historical points, exam findings, and any diagnostic results supporting the discharge/admit diagnosis, lab results, the need for outpatient follow up, for definitive care, a family practitioner, a psychiatrist. 03/04 01:18 Order name: Acetaminophen; Complete Time: 02:25 rt 03/04 01:18 Order name: Basic Metabolic Panel; Complete Time: 02:25 rt 03/04 01:18 Order name: CBC with Diff; Complete Time: 02:25 rt 03/04 01:18 Order name: ETOH Level; Complete Time: 02:25 rt 03/04 01:18 Order name: Hepatic Function; Complete Time: 02:25 rt 03/04 01:18 Order name: PT-INR; Complete Time: 02:25 rt 03/04 01:18 Order name: Ptt, Activated; Complete Time: 02:25 rt 03/04 01:18 Order name: Salicylate; Complete Time: 02:52 rt 03/04 01:18 Order name: Urinalysis w/ reflexes; Complete Time: 03:35 rt 03/04 01:18 Order name: Urine Drug Screen; Complete Time: 03:35 rt 03/04 05:11 Order name: ETOH Level; Complete Time: 05:49 rt 03/04 01:18 Order name: EKG - Nurse/Tech; Complete Time: 02:44 rt 03/04 01:18 Order name: IV Saline Lock; Complete Time: 01:49 rt 03/04 01:18 Order name: Labs collected and sent; Complete Time: 01:49 rt 03/04 01:18 Order name: Suicide Precautions; Complete Time: 02:44 rt 03/04 01:18 Order name: Suicide Screening (Joanna); Complete Time: 02:44 rt EC:45 Rate is 83 beats/min. Rhythm is regular, Normal Sinus Rhythm with No ectopy, Left rt bundle branch block. QRS [place] is Normal. NV interval is normal. QRS interval is normal. QT interval is normal. No Q waves. T waves are Normal. No ST changes noted. Interpreted by me. Administered Medications: 08:34 Drug: Banana Bag - (Multivitamin IV 1 amp, NS 0.9% IV 1000 ml, Thiamine IV 100 mg, mb9 foLIC Acid IVPB 1 mg) IV at 500 ml/hr once Route: IV; Rate: 500 ml/hr; Site: right forearm; 09:50 Follow up: Response: No adverse reaction; IV Status: Completed infusion mb9 08:34 Drug: Thiamine IV 100 mg IV at bolus once Route: IV; Rate: bolus; Site: right forearm; mb9 13:25 Follow up: Response: No adverse reaction; IV Status: Completed infusion mb9 09:42 Drug: Nicoderm CQ Transdermal Patch 21 mg/24 hr 21 mg Transdermal once Route: mb9 Transdermal; Site: affected area; 13:25 Follow up: Response: No adverse reaction mb9 09:50 Drug: Ativan IVP 1 mg IVP once Route: IVP; Site: right forearm; mb9 10:58 Follow up: Response: No adverse reaction mb9 09:50 Drug: Ativan IVP 1 mg IVP once Route: IVP; Site: right forearm; mb9 10:58 Follow up: Response: No adverse reaction mb9 Disposition Summary: 03/04/24 09:37 Transfer Ordered Notes: Transfer Location: Psych Facility enrike Reason: Higher level of care enrike Condition: Stable enrike Problem: new enrike Symptoms: have improved enrike Accepting Physician: to psych(03/04/24 13:53) mb9 Diagnosis - Major depressive disorder, recurrent, moderate enrike - Alcohol abuse with intoxication enrike - Suicidal ideations enrike Forms: - Medication Reconciliation Form enrike - SBAR form enrike Signatures: Dispatcher [employer] EDMS Zach Hernandez MD MD cha Brown, Sophia, PA-C PA-C sb4 Coreen Youssef RN RN mb9 Jesus Hernández MD MD rt Gallardo, Rommel, RN RN rg5 Corrections: (The following items were deleted from the chart) 01:19 01:19 ACETAMINOPHEN+C.LAB.BRZ ordered. EDMS EDMS 01:19 01:19 BASIC METABOLIC PANEL+C.LAB.BRZ ordered. EDMS EDMS 01:19 01:19 CBC+H.LAB.BRZ ordered. EDMS EDMS 01:19 01:19 ETHANOL+C.LAB.BRZ ordered. EDMS EDMS 01:19 01:19 HEPATIC FUNCTION+C.LAB.BRZ ordered. EDMS EDMS 01:19 01:19 PROTIME (+INR)+COAG.LAB.BRZ ordered. EDMS EDMS 01:19 01:19 PTT, ACTIVATED+COAG.LAB.BRZ ordered. EDMS EDMS 01:19 01:19 SALICYLATE+C.LAB.BRZ ordered. EDMS EDMS 01:19 01:19 Urinalysis+U.LAB.BRZ ordered. EDMS EDMS 01:19 01:19 URINE DRUG SCREEN+UC.LAB.BRZ ordered. EDMS EDMS 13:53 09:37 to [place] [id number]
[2024-03-04 14:03] VITALS: TEMP 98
[2024-03-04 14:04] VITALS: BP 142/84; O2SAT 98
--- NOTE | 2024-03-05 13:00 | EKG ---
Test Date: 2024-03-04 Test Time: 02:38:41 Truck And Transport Mechanic: MADHURI MEASUREMENT RESULTS: Intervals: Rate: 83 [place]: 196 QRSD: 144 QT: 422 QTc: 495 [place]: P: 89 [place]: 196 QRS: 4 T: 84 INTERPRETIVE STATEMENTS: Normal sinus rhythm Left bundle branch block Abnormal ECG Compared to ECG 02/13/2024 20:43:05 Sinus tachycardia no longer present Electronically Signed On 03-05-24 12:55:32 CDT by Nicolás Carter
== END 2024-03-04 13:53 ==
LOC: ER 01:10
DX: F33.1 Major depressive disorder, recurrent, moderate (principal); F10.129 Alcohol abuse with intoxication, unspecified; I10 Essential (primary) hypertension; J44.9 Chronic obstructive pulmonary disease, unspecified
CPT/HCPCS: 96365; 96368; 93005; 85025; 80048; 36415; 85610; 80076; 85730; 81003; 80307; 96375; 99285; 96366; 80143; 80179; 82077 ×2; J3411; J7030

== ENCOUNTER 2024-04-29 16:39 | Emergency (ER) | payer OTHER ==
--- NOTE | 2024-04-29 17:44 | ER ---
Nurse's Notes [facility] Name: Heaven Bhatia Age: 63 yrs Sex: Female : 1960 Arrival Date: 04/29/2024 Time: 16:39 Bed 13 Private MD: Diagnosis: Alcohol abuse;Chronic pain, not elsewhere classified Presentation: 04/29 17:05 Chief complaint: EMS states: EMS called because pt was lying in her yard yelling, has ph hx of ETOH abuse, admits to drinking 1 pint of vodka today, c/o pain all over. Coronavirus screen: Vaccine status: Patient reports being unvaccinated. Ebola Screen: No symptoms or risks identified at this time. Initial Sepsis Screen: Does the patient meet any 2 criteria? No. Patient's initial sepsis screen is negative. Does the patient have a suspected source of infection? No. Patient's initial sepsis screen is negative. Risk Assessment: Do you want to hurt yourself or someone else? Patient reports no desire to harm self or others. Onset of symptoms was April 29, 2024. 17:05 Method Of Arrival: EMS: [facility] 17:05 Acuity: MARILYNN 3 ph Triage Assessment: 17:08 General: Appears in no apparent distress. Behavior is cooperative. Pain: Complains of ph pain in "all over". Neuro: Level of Consciousness is awake, alert, obeys commands, Oriented to person, place, situation. Cardiovascular: Capillary refill < 3 seconds in bilateral fingers Patient's skin is warm and dry. Respiratory: Airway is patent Respiratory effort is even, unlabored, Respiratory pattern is regular, symmetrical. Derm: Skin is pink, warm \\T\\ dry. Musculoskeletal: Circulation, motion, and sensation intact. Range of motion: intact in all extremities. Historical: - Allergies: 17:07 No Known Drug Allergies; ph - PMHx: 17:07 chronic back pain; COPD; etoh abuse; Hyperlipidemia; Hypertensive disorder; Seizure; ph - PSHx: 17:07 Appendectomy; ph - Immunization history:: Adult Immunizations unknown. - Infectious Disease History:: Denies. - Social history:: Smoking status: unknown Patient uses alcohol. - Family history:: not pertinent. - Hospitalizations: : No recent hospitalization is reported. Screenin:09 [facility] ED Fall Risk Assessment (Adult) History of falling in the last 3 months, ph including since admission Yes- fall prone (multiple falls) (3 pts) Confusion or Disorientation Yes (5 pts) Intoxicated or Sedated Yes (3 pts) Impaired Gait No (0 pts) Mobility Assist Device Used No (0 pt) Altered Elimination Yes (1 pt) Score/Fall Risk Level 3 or more points = High Risk Oriented to surroundings, Maintained a safe environment, Hourly rounding (assess needs \\T\\ fall precautionary measures) done, Used ambulatory aids as needed (educated on \\T\\ assisted with). Abuse screen: Denies threats or abuse. Denies injuries from another. Nutritional screening: No deficits noted. Tuberculosis screening: No symptoms or risk factors identified. Assessment: 17:35 Reassessment: pt's friend Consuelo called for update, left phone number [phone]. iw 18:30 Reassessment: Pt found standing at the end of the ER stretcher attempting to put on ph pants, IV d/c by pt, site noted to be bleeding, pressure dressing applied and assisted pt in putting on pants,pt ambulated to nurse's station to call friend. 18:39 Reassessment: arranged for uber ride to [address] [place] [address] per patient request. iw Vital Signs: 17:05 BP 110 / 70; Pulse 78; Resp 18; Temp 98.4(O); Pulse Ox 96% on R/A; ph 18:00 BP 118 / 72; Pulse 76; Resp 18; Temp 97.9; Pulse Ox 98% on R/A; ph ED Course: 16:51 Patient arrived in ED. ph 16:54 Melchor Jj MD is Attending Physician. rn 17:02 Oliva Davis RN is Primary Nurse. ph 17:07 Triage completed. ph 17:08 Arm band placed on Patient placed in an exam room, on a stretcher, on pulse oximetry. ph 17:09 Patient has correct armband on for positive identification. Bed in low position. Call ph light in reach. Side rails up X 1. Pulse ox on. NIBP on. Door closed. Noise minimized. Warm blanket given. 17:10 Maintain EMS IV. Dressing intact. Good blood return noted. Site clean \\T\\ dry. Gauge \\T\\ ph site: 18 LAC. Flushed with 10 mL NS. 17:43 Yo Banks MD is Referral Physician. rn 18:35 IV was discontinued by the patient. is intact, bleeding controlled, No redness/swelling ph at site. Pressure dressing applied. 18:46 No provider procedures requiring assistance completed. ph Administered Medications: No medications were administered Medication: 17:09 VIS not applicable for this client. ph Outcome: 17:44 Discharge ordered by MD. rn 18:47 Discharged to home via wheelchair, ph 18:47 Condition: stable 18:47 Discharge instructions given to patient, Instructed on discharge instructions, follow up and referral plans. 18:48 Patient left the ED. ph Signatures: Kristin Dixon, Melchor Garcia RN, MD MD rn Hall, Patricia, RN RN ph
--- NOTE | 2024-04-29 17:45 | EDPHYS ---
Physician Documentation [facility] Name: Heaven Bhatia Age: 63 yrs Sex: Female : 1960 Arrival Date: 04/29/2024 Time: 16:39 Bed 13 Private MD: ED Physician Melchor Jj HPI: 04/29 17:14 This 63 yrs old Female presents to ER via EMS with complaints of chronic pain. rn 17:14 Patient reports has chronic pain, hurts all over, her pain management doctor when out rn of business so cannot get her oxycodone. Patient presents asking for oxycodone. Was drinking today as she normally does. Denies suicidal ideation.. Onset: The symptoms/episode began/occurred at an unknown time. Severity of symptoms: At their worst the symptoms were moderate in the emergency department the symptoms are unchanged. The patient has experienced similar episodes in the past, chronically. Historical: - Allergies: 17:07 No Known Drug Allergies; ph - PMHx: 17:07 chronic back pain; COPD; etoh abuse; Hyperlipidemia; Hypertensive disorder; Seizure; ph - PSHx: 17:07 Appendectomy; ph - Immunization history:: Adult Immunizations unknown. - Infectious Disease History:: Denies. - Social history:: Smoking status: unknown Patient uses alcohol. - Family history:: not pertinent. - Hospitalizations: : No recent hospitalization is reported. ROS: 17:14 Constitutional: Negative for fever, chills, and weight loss, Cardiovascular: Negative rn for chest pain, palpitations, and edema, Respiratory: Negative for shortness of breath, cough, wheezing, and pleuritic chest pain, Abdomen/GI: Negative for abdominal pain, nausea, vomiting, diarrhea, and constipation, Back: Negative for injury and pain, MS/Extremity: Negative for injury and deformity, Skin: Negative for injury, rash, and discoloration, Neuro: Negative for headache, weakness, numbness, tingling, and seizure, Exam: 17:14 Constitutional: This is a well developed, well nourished patient who is awake, alert, rn and in no acute distress. Smells of alcohol, disheveled. Head/Face: Normocephalic, atraumatic. Cardiovascular: Regular rate and rhythm. No pulse deficits. Neuro: Awake and alert, GCS 15 Vital Signs: 17:05 BP 110 / 70; Pulse 78; Resp 18; Temp 98.4(O); Pulse Ox 96% on R/A; ph 18:00 BP 118 / 72; Pulse 76; Resp 18; Temp 97.9; Pulse Ox 98% on R/A; ph MDM: 16:54 Medical Screening Exam initiated rn 17:42 Differential Diagnosis Alcohol abuse, chronic pain. Data reviewed: vital signs, nurses rn notes, and as a result, I will discharge patient. Counseling: I had a detailed discussion with the patient and/or guardian regarding the historical points, exam findings, and any diagnostic results supporting the discharge/admit diagnosis, the need for outpatient follow up, to return to the emergency department if symptoms worsen or persist or if there are any questions or concerns that arise at home. Special discussion: I discussed with the patient/guardian in detail that at this point there is no indication for admission to the hospital. It is understood, however, that if the symptoms persist or worsen the patient needs to return immediately for re-evaluation. Based on the history and exam findings, there is no indication for further emergent testing or inpatient evaluation. I discussed with the patient/guardian the need to see the painting instructor for further evaluation of the symptoms. Administered Medications: No medications were administered Disposition Summary: 04/29/24 17:44 Discharge Ordered Notes: Location: Home rn Problem: chronic rn Symptoms: have improved rn Condition: Stable rn Diagnosis - Alcohol abuse rn - Chronic pain, not elsewhere classified rn Followup: rn - With: Yo Banks MD - When: As needed - Reason: Recheck today's complaints, Re-evaluation by your physician Discharge Instructions: - Discharge Summary Sheet rn - Chronic Pain, Adult rn - Alcohol Abuse and Nutrition rn Forms: - Medication Reconciliation Form rn - Antibiotic fabric pattern grader - Prescription Opioid Use rn - Patient Portal Instructions rn - Leadership Thank You Letter rn Signatures: Melchor Jj MD MD rn Hall, Patricia, RN RN ph
[2024-04-30 00:59] VITALS: BP 118/72; TEMP 97.9; O2SAT 98
== END 2024-04-29 18:48 | disposition home or self-care (01) ==
LOC: ER 16:39
DX: G89.29 Other chronic pain (principal); F10.10 Alcohol abuse, uncomplicated; J44.9 Chronic obstructive pulmonary disease, unspecified; I10 Essential (primary) hypertension
CPT/HCPCS: 99284

== ENCOUNTER 2024-04-30 17:38 | Emergency (ER) | payer OTHER ==
[2024-04-30] MEDS ORDERED: NA CHLORIDE 0.9% 1,000 ML ONE (18:11)
[2024-04-30 18:19] LABS: Absolute Basophils 0.1 K/uL (0-0.5); Absolute Eosinophils 0.1 K/uL (0-0.5); Absolute Lymphocytes (CBC) 2.2 K/uL (0.7-4.9); Absolute Monocytes 0.5 K/uL (0.1-1.3); Absolute Neutrophil 4.6 K/uL (1.8-8.0); Basophils % 1.3 % (0-1.3); Eosinophils % 1.9 % (0-4.4); Hemoglobin 12.2 g/dL (12.0-15.0); Lymphocytes % 29.1 % (15.3-44.8); MCH 32.3 pg (27.0-35.0); MCV 94.9 fL (80-100); MPV 7.1 fL (7.6-11.3); Monocytes % 6.9 % (3.3-12.3); Neutrophils % 60.8 % (41.7-73.7); Nucleated Red Blood Cells % 0.1 % (0-0); Platelets 247 thou/uL (152-406); RBC Red Blood Cell Count 3.79 M/uL (3.86-4.86); Red Cell Distribution Width 13.5 % (12.1-15.2)
[2024-04-30 18:25] LABS: PT Prothrombin Time 11.3 SECONDS (9.4-12.5); PTT, Activated Partial Thromb 30.1 SECONDS (24.3-36.9); Protime INR 1.01
--- NOTE | 2024-04-30 18:26 | EDPHYS ---
Physician Documentation [facility] Name: Heaven Bhatia Age: 63 yrs Sex: Female : 1960 Arrival Date: 04/30/2024 Time: 17:38 Bed 15 Private MD: ED Physician Hussain Orosco HPI: 04/30 18:18 This 63 yrs old Female presents to ER via EMS with complaints of ETOH Abuse. enrike 18:18 The patient presents to the emergency department after a known overdose, that was enrike intentional. Context: Method: the patient has a confirmed or suspected ingestion, of alcohol. Associated signs and symptoms: Pertinent positives: dizziness. Past psychiatric history: Prior diagnosis: addiction history, alcohol, bipolar disorder, depression. ETOH INTOX. Associated signs and symptoms: Pertinent positives; substance abuse, suicide ideation. Severity of symptoms: At their worst the symptoms were moderate in the emergency department the symptoms are unchanged. The patient has experienced similar episodes in the past, multiple times. Historical: - PMHx: 17:54 chronic back pain; COPD; etoh abuse; Hyperlipidemia; Hypertensive disorder; Seizure; rs5 - PSHx: 17:54 Appendectomy; backsurgery (Appendectomy); rs5 - Immunization history:: Adult Immunizations unknown. - Infectious Disease History:: Denies. - Social history:: Smoking status: Patient reports the use of cigarette tobacco products, smokes one-half pack cigarettes per day. - Family history:: not pertinent. ROS: 18:18 Constitutional: Negative for fever, chills, and weight loss, Eyes: Negative for injury, enrike pain, redness, and discharge, ENT: Negative for injury, pain, and discharge, Neck: Negative for injury, pain, and swelling, Cardiovascular: Negative for chest pain, palpitations, and edema, Respiratory: Negative for shortness of breath, cough, wheezing, and pleuritic chest pain, Abdomen/GI: Negative for abdominal pain, nausea, vomiting, diarrhea, and constipation, Back: Negative for injury and pain, : Negative for injury, bleeding, discharge, and swelling, MS/Extremity: Negative for injury and deformity, Skin: Negative for injury, rash, and discoloration, Allergy/Immunology: Negative for hives, rash, and allergies, Endocrine: Negative for neck swelling, polydipsia, polyuria, polyphagia, and marked weight changes, Hematologic/Lymphatic: Negative for swollen nodes, abnormal bleeding, and unusual bruising, 18:18 Neuro: Positive for dizziness, weakness, 18:18 Psych: Positive for anxiety, depression, suicidal ideation, Exam: 18:18 Constitutional: This is a well developed, well nourished patient who is awake, alert, enrike and in no acute distress. Head/Face: Normocephalic, atraumatic. Eyes: Pupils equal round and reactive to light, extra-ocular motions intact. Lids and lashes normal. Conjunctiva and sclera are non-icteric and not injected. Cornea within normal limits. Periorbital areas with no swelling, redness, or edema. ENT: Nares patent. No nasal discharge, no septal abnormalities noted. Tympanic membranes are normal and external auditory canals are clear. Oropharynx with no redness, swelling, or masses, exudates, or evidence of obstruction, uvula midline. Mucous membranes moist. Neck: Trachea midline, no thyromegaly or masses palpated, and no cervical lymphadenopathy. Supple, full range of motion without nuchal rigidity, or vertebral point tenderness. No Meningismus. Chest/axilla: Normal chest wall appearance and motion. Nontender with no deformity. No lesions are appreciated. Cardiovascular: Regular rate and rhythm with a normal S1 and S2. No gallops, murmurs, or rubs. Normal PMI, no JVD. No pulse deficits. Respiratory: Lungs have equal breath sounds bilaterally, clear to auscultation and percussion. No rales, rhonchi or wheezes noted. No increased work of breathing, no retractions or nasal flaring. Abdomen/GI: Soft, non-tender, with normal bowel sounds. No distension or tympany. No guarding or rebound. No evidence of tenderness throughout. Back: No spinal tenderness. No costovertebral tenderness. Full range of motion. Female : Normal external genitalia. Skin: Warm, dry with normal turgor. Normal color with no rashes, no lesions, and no evidence of cellulitis. MS/ Extremity: Pulses equal, no cyanosis. Neurovascular intact. Full, normal range of motion. Neuro: Awake and alert, GCS 15, oriented to person, place, time, and situation. Cranial nerves II-XII grossly intact. Motor strength 5/5 in all extremities. Sensory grossly intact. Cerebellar exam normal. Normal gait. 18:18 Psych: Behavior/mood is pleasant, Affect is animated, Oriented to person, place, Not oriented to time, Patient has no thoughts/intents to harm self or others. Judgement / Insight is normal. Memory is normal. 18:51 ECG was reviewed by the Attending Physician. [facility] Vital Signs: 17:51 BP 157 / 64; Pulse 84; Resp 17; Temp 98(O); Pulse Ox 91% on R/A; rs5 19:38 BP 156 / 83; Pulse 78; Resp 20; Temp 98.2; Pulse Ox 100% on 2 lpm NC; Pain 0/10; bm8 20:35 BP 184 / 100; Pulse 83; Resp 17; Temp 98.2; Pulse Ox 100% on 2 lpm NC; Pain 0/10; bm8 21:54 BP 112 / 77; Pulse 84; Resp 14; Temp 98.2; Pulse Ox 100% on 2 lpm NC; Pain 0/10; ay 23:00 BP 104 / 66; Pulse 94; Resp 18; Temp 98.2; Pulse Ox 98% on 2 lpm NC; Pain 0/10; bm8 05/01 00:00 BP 123 / 81; Pulse 80; Resp 18; Temp 98.2; Pulse Ox 100% on 2 lpm NC; Pain 0/10; bm8 01:00 BP 130 / 84; Pulse 77; Resp 15; Temp 98.2; Pulse Ox 100% on 2 lpm NC; Pain 0/10; bm8 02:00 BP 138 / 87; Pulse 80; Resp 18; Temp 98.2; Pulse Ox 100% on 2 lpm NC; Pain 0/10; bm8 02:15 BP 157 / 85; Pulse 89; Resp 17; Temp 98.2; Pulse Ox 94% on R/A; Pain 0/10; bm8 19:38 Pain Scale: Adult bm8 20:35 Pain Scale: Adult bm8 21:54 Pain Scale: Adult ay 23:00 Pain Scale: Adult bm8 05/01 00:00 Pain Scale: Adult bm8 01:00 Pain Scale: Adult bm8 02:00 Pain Scale: Adult bm8 02:15 Pain Scale: Adult bm8 NIH Stroke Scale Scores: 04/30 18:51 NIHSS Score: 0 enrike Lanie Coma Score: 18:18 Eye Response: spontaneous(4). Motor Response: obeys commands(6). Verbal Response: enrike oriented(5). Total: 15. 20:35 Eye Response: spontaneous(4). Motor Response: obeys commands(6). Verbal Response: bm8 oriented(5). Total: 15. 21:54 Eye Response: spontaneous(4). Motor Response: obeys commands(6). Verbal Response: ay oriented(5). Total: 15. 05/01 00:00 Eye Response: spontaneous(4). Motor Response: obeys commands(6). Verbal Response: bm8 oriented(5). Total: 15. 01:00 Eye Response: spontaneous(4). Motor Response: obeys commands(6). Verbal Response: bm8 oriented(5). Total: 15. 02:00 Eye Response: spontaneous(4). Motor Response: obeys commands(6). Verbal Response: bm8 oriented(5). Total: 15. 02:15 Eye Response: spontaneous(4). Motor Response: obeys commands(6). Verbal Response: bm8 oriented(5). Total: 15. MDM: 04/30 17:41 Medical Screening Exam initiated enrike 18:22 Differential diagnosis: polypharmacy, over medication, hypoglycemia, drug withdrawal. [facility] acute psychotic break, depression, psychosis secondary to non-compliance. Data reviewed: vital signs, nurses notes, lab test result(s), EKG, radiologic studies, plain films. Consideration of Admission/Observation Escalation of care including admission/observation considered. I considered the following discharge prescriptions or medication management in the emergency department Medications were administered in the Emergency Department. See MAR. Independent interpretation of the following test(s) in the Emergency Department EKG: See my EKG interpretation above. Test considered but Not performed: X-ray: NO CXR. Care significantly affected by the following chronic conditions: Hypertension, Obesity, ETOH ABUSE,COPD, CBP, SEIZURE. 05/01 02:23 ED course: Patient's reports to me that she is no longer suicidal. She is requesting to sp4 be sent home. We concur that patient is stable for discharge home. 04/30 17:42 Order name: Acetaminophen; Complete Time: 20:07 [facility] 04/30 17:42 Order name: Basic Metabolic Panel; Complete Time: 20: [facility] 04/30 17:42 Order name: CBC with Diff; Complete Time: 20: [facility] 04/30 17:42 Order name: ETOH Level; Complete Time: 20: [facility] 04/30 17:42 Order name: Hepatic Function; Complete Time: 20: [facility] 04/30 17:42 Order name: PT-INR; Complete Time: 20: [facility] 04/30 17:42 Order name: Ptt, Activated; Complete Time: 20: [facility] 04/30 17:42 Order name: Salicylate; Complete Time: 20: [facility] 04/30 17:42 Order name: Urinalysis w/ reflexes; Complete Time: 02: [facility] 04/30 17:42 Order name: Urine Drug Screen; Complete Time: 02: [facility] 04/30 17:42 Order name: EKG; Complete Time: 17:43 [facility] 04/30 17:42 Order name: EKG - Nurse/Tech; Complete Time: 19:42 [facility] 04/30 17:42 Order name: IV Saline Lock; Complete Time: 18:13 [facility] 04/30 17:42 Order name: Labs collected and sent; Complete Time: 18:13 [facility] 04/30 17:42 Order name: Suicide Precautions; Complete Time: 18:13 [facility] 04/30 17:42 Order name: Suicide Screening ([place]); Complete Time: 18:13 [facility] EC/27 18:51 Rate is 81 beats/min. Rhythm is regular. QRS [place] is Normal. [place] interval is normal. QRS enrike interval is normal. QT interval is normal. No Q waves. T waves are Normal. No ST changes noted. Clinical impression: Abnormal EKG without significant change and No evidence of ischemia. Interpreted by me. Reviewed by me. Administered Medications: 18:12 Drug: NS 0.9% IV 1000 ml IV at 1000 ml once; to be given as a bolus over 60 minutes rs5 Route: IV; Rate: 1000 ml; Site: right antecubital; 20:28 Follow up: Response: No adverse reaction; IV Status: Completed infusion; IV Intake: bm8 1000ml 18:40 Drug: Thiamine IV 100 mg IV at bolus once Route: IV; Rate: bolus; Site: right rs5 antecubital; 20:28 Follow up: Response: No adverse reaction; IV Status: Completed infusion; IV Intake: [id number] 18:40 Drug: foLIC Acid IVPB 1 mg IVPB once Route: IVPB; Site: right antecubital; rs5 20:27 Follow up: Response: No adverse reaction; IV Status: Completed infusion; IV Intake: bm8 0.01ml 18:40 Drug: Magnesium Sulfate IVPB 2 grams IVPB once over 2 hrs Route: IVPB; Infused Over: 2 rs5 hrs; Site: right antecubital; 20:27 Follow up: Response: No adverse reaction; IV Status: Completed infusion; IV Intake: bm8 100ml 20:09 CANCELLED (Duplicate Order): [id number] mg PO once enrike 20:25 Drug: HydrALAZINE PO 25 mg PO once Route: PO; bm8 22:01 Follow up: Response: No adverse reaction ay 20:25 Drug: Norvasc PO 5 mg PO once Route: PO; bm8 22:01 Follow up: Response: No adverse reaction ay 20:28 Drug: Potassium PO Effervescent Tablet 25 mEq PO once; dissolve in 4 ounces of water or bm8 juice Route: PO; 22:01 Follow up: Response: No adverse reaction ay 20:29 Drug: hydrALAZINE IVP 10 mg IVP once Route: IVP; Site: right antecubital; bm8 22:01 Follow up: Response: No adverse reaction ay Disposition Summary: 05/01/24 02:22 Discharge Ordered Notes: Location: Home sp4 Problem: new(05/01/24 02:22) sp4 Symptoms: have improved(05/01/24 02:22) sp4 Condition: Stable(05/01/24 02:22) sp4 Diagnosis - Alcohol abuse with intoxication(05/01/24 02:22) sp4 Followup: sp4 - With: Private Physician - When: 7 - 10 days - Reason: Recheck today's complaints Discharge Instructions: - Discharge Summary Sheet sp4 - Alcohol Intoxication sp4 Forms: - Patient Portal Instructions sp4 NIH Stroke Scale - NIH Stroke Score Date: 04/30/2024 Time: 18:51 Total Score = 0 10. Dysarthria (speech clarity - read or repeat words) - 0(Normal) 11. Extinction and Inattention (visual/tactile/auditory/spatial/personal) - 0(No abnormality) 1a. Level of Consciousness (LOC) - 0(Alert) 1b. Level of Consciousness (LOC) (Month \T\ Age) - 0(Both) 1c. LOC Commands (Open \T\ Closes Eyes/Nuclear Equipment Test Engineer) - 0(Both) 2. Best Gaze (Lateral Gaze Paresis) - 0(Normal) 3. Visual Field Loss - 0(No visual loss) 4. Facial Palsy - 0(Normal) 5a. Left Arm: Motor (10-second hold) - 0(No drift) 5b. Right Arm: Motor (10-second hold) - 0(No drift) 6a. Left Leg: Motor (5-second hold - always test supine) - 0(No drift) 6b. Right Leg: Motor (5-second hold - always test supine) - 0(No drift) 7. Limb Ataxia (finger/nose \T\ heel/wheeler - test with eyes open) - 0(Absent) 8. Sensory Loss (pinprick arms/legs/face) - 0(Normal) 9. Best Language: Aphasia (description/naming/reading) - 0(No aphasia) Initials: enrike Signatures: Dispatcher [employer] EDMS Zach Hernandez MD MD cha Sotelo, Ricky, RN RN rs5 Hussain Oorsco MD MD sp4 Lupillo Mcdaniel, RN RN bm8 Teressa Mondragon RN ay Corrections: (The following items were deleted from the chart) 17:43 17:43 ACETAMINOPHEN+C.LAB.BRZ ordered. EDMS EDMS 17:43 17:43 BASIC METABOLIC PANEL+C.LAB.BRZ ordered. EDMS EDMS 17:43 17:43 CBC+H.LAB.BRZ ordered. EDMS EDMS 17:43 17:43 ETHANOL+C.LAB.BRZ ordered. EDMS EDMS 17:43 17:43 HEPATIC FUNCTION+C.LAB.BRZ ordered. EDMS EDMS 17:43 17:43 PROTIME (+INR)+COAG.LAB.BRZ ordered. EDMS EDMS 17:43 17:43 PTT, ACTIVATED+COAG.LAB.BRZ ordered. EDMS EDMS 17:43 17:43 SALICYLATE+C.LAB.BRZ ordered. EDMS EDMS 17:43 17:43 Urinalysis+U.LAB.BRZ ordered. EDMS EDMS 17:43 17:43 URINE DRUG SCREEN+UC.LAB.BRZ ordered. EDMS EDMS 20:09 20:09 Norvasc PO 10 mg PO once ordered. enrike enrike 05/01 02:04/30 18:25 TO PSYCH enrike sp4 05/01 02:04/30 18:25 Psych Facility enrike sp4 05/01 02:04/30 18:25 Higher level of care enrike sp4 05/01 02:04/30 18:25 Stable enrike sp4 05/01 02:04/30 18:25 new enrike sp4 05/01 02:04/30 18:25 have improved enrike sp4 05/01 02:04/30 18:25 Alcohol abuse enrike sp4 05/01 02:04/30 18:25 Alcohol abuse with intoxication enrike sp4 05/01 02:04/30 18:25 Major depressive disorder, recurrent, moderate enrike sp4 05/01 02:04/30 18:25 Suicidal ideations enrike sp4
--- NOTE | 2024-04-30 18:26 | ER ---
Nurse's Notes [facility] Name: Heaven Bhatia Age: 63 yrs Sex: Female : 1960 Arrival Date: 04/30/2024 Time: 17:38 Bed 15 Private MD: Diagnosis: Alcohol abuse with intoxication Presentation: 04/30 17:51 Chief complaint: EMS states: Found slumped over steering wheel in a parked car by [employer]. rs5 Pt reports having had several drinks and having taken pain medication. Coronavirus screen: At this time, the client does not indicate any symptoms associated with coronavirus-19. Ebola Screen: No symptoms or risks identified at this time. Initial Sepsis Screen: Does the patient meet any 2 criteria? No. Patient's initial sepsis screen is negative. Does the patient have a suspected source of infection? No. Patient's initial sepsis screen is negative. Risk Assessment:. Onset of symptoms was April 30, 2024. Care prior to arrival: Medication(s) given: zofran 4 mg, IV initiated. 20 GA, in the right antecubital area. 17:51 Method Of Arrival: EMS: [facility] rs5 17:51 Acuity: MARILYNN 3 rs5 19:00 Risk Assessment: Do you want to hurt yourself or someone else? Patient reports bm8 desire/thoughts of hurting themselves or someone else. Provider notified. Historical: - PMHx: 17:54 chronic back pain; COPD; etoh abuse; Hyperlipidemia; Hypertensive disorder; Seizure; rs5 - PSHx: 17:54 Appendectomy; backsurgery (Appendectomy); rs5 - Immunization history:: Adult Immunizations unknown. - Infectious Disease History:: Denies. - Social history:: Smoking status: Patient reports the use of cigarette tobacco products, smokes one-half pack cigarettes per day. - Family history:: not pertinent. Screenin:40 [facility] ED Fall Risk Assessment (Adult) History of falling in the last 3 months, rs5 including since admission No falls in past 3 months (0 pts) Confusion or Disorientation No (0 pts) Intoxicated or Sedated Yes (3 pts) Impaired Gait Yes (1 pt) Mobility Assist Device Used No (0 pt) Altered Elimination No (0 pt) Score/Fall Risk Level 3 or more points = High Risk Oriented to surroundings, Maintained a safe environment, Provided non-skid footwear, Hourly rounding (assess needs \\T\\ fall precautionary measures) done. Abuse screen: Denies threats or abuse. Nutritional screening: No deficits noted. Tuberculosis screening: No symptoms or risk factors identified. Assessment: 17:39 Reassessment: CRISTINA at bedside, pt states "I want to kill myself" provider notified, pt rs5 placed on BEATRZI by [employer], provider aware. to bedside for C-SRSS screening, see paper charting for more information, sitter at bedside. 17:40 General: Appears unkempt, Behavior is cooperative. Pain: Denies pain. Neuro: Level of rs5 Consciousness is awake, alert, obeys commands, Oriented to person, place, time, situation. Cardiovascular: Patient's skin is warm and dry. Respiratory: Airway is patent Respiratory effort is even, unlabored, Respiratory pattern is regular, symmetrical. GI: Abdomen is round non-distended, Abd is soft and non tender X 4 quads. 17:40 : No signs and/or symptoms were reported regarding the genitourinary system. EENT: No rs5 signs and/or symptoms were reported regarding the EENT system. Derm: Skin is intact, Skin is pink, warm \\T\\ dry. Musculoskeletal: Range of motion: intact in all extremities. 18:49 Reassessment: Patient and/or family updated on plan of care and expected duration. Pain rs5 level reassessed. Patient is alert, oriented x 3, equal unlabored respirations, skin warm/dry/pink. 19:00 Reassessment: Assuming care of pt from ELIANE Castellanos at this time. Pt is resting in bed bm8 with eyes closed breathing is even unlabored with symmetrical rise and fall of chest. Fluids on pump almost complete. pt denies pain. States that she always wants to so that she can go home to [facility]. She prays to go home daily. Due to PT's current condition room is not broken down for vital sign monitoring . Patient denies pain at this time. General: Appears in no apparent distress. comfortable, Behavior is calm, cooperative. General: Smells of alcohol. Pain: Denies pain. Neuro: Cardiovascular: No deficits noted. Capillary refill < 3 seconds in bilateral fingers Patient's skin is warm and dry. Rhythm is sinus rhythm. Respiratory: Airway is patent Respiratory effort is even, unlabored, Respiratory pattern is regular, symmetrical, Breath sounds are clear bilaterally. GI: No deficits noted. No signs and/or symptoms were reported involving the gastrointestinal system. : No deficits noted. No signs and/or symptoms were reported regarding the genitourinary system. EENT: No deficits noted. No signs and/or symptoms were reported regarding the EENT system. 19:00 Derm: No deficits noted. No signs and/or symptoms reported regarding the dermatologic bm8 system. Musculoskeletal: No deficits noted. No signs and/or symptoms reported regarding the musculoskeletal system. 20:34 Reassessment: Patient appears in no apparent distress at this time. No changes from bm8 previously documented assessment. Patient and/or family updated on plan of care and expected duration. Pain level reassessed. Patient is alert, oriented x 3, equal unlabored respirations, skin warm/dry/pink. Patient denies pain at this time. 22:00 Reassessment: Patient appears in no apparent distress at this time. No changes from ay previously documented assessment. Patient and/or family updated on plan of care and expected duration. Pain level reassessed. Patient is alert, oriented x 3, equal unlabored respirations, skin warm/dry/pink. gave report to ELIANE Pyle at [facility] and was declined due to pt being on 02 and hx of incontience Patient denies pain at this time. 23:41 Reassessment: Patient appears in no apparent distress at this time. No changes from bm8 previously documented assessment. Patient and/or family updated on plan of care and expected duration. Pain level reassessed. Patient denies pain at this time. 05/01 00:00 Reassessment: Patient appears in no apparent distress at this time. No changes from bm8 previously documented assessment. Patient denies pain at this time. 00:27 Reassessment: attempted to give report for [facility], they have bm8 declined due to need for continuous O2. 01:00 Reassessment: Patient appears in no apparent distress at this time. Patient and/or bm8 family updated on plan of care and expected duration. Pain level reassessed. pt is resting with eyes closed breathing is even unlabored with symmetrical rise and fall of chest. Patient denies pain at this time. 02:00 Reassessment: Patient appears in no apparent distress at this time. No changes from bm8 previously documented assessment. Patient and/or family updated on plan of care and expected duration. Pain level reassessed. Patient denies pain at this time. 02:15 Reassessment: pt is fully awake and asking to be discharged, states "I would never do bm8 anything to hurt myself. I need to get back and check on my dogs. Can I go?" Provider informed of pt's statements. Discharge safety plan made for and and with pt. Patient denies pain at this time. Vital Signs: 04/30 17:51 BP 157 / 64; Pulse 84; Resp 17; Temp 98(O); Pulse Ox 91% on R/A; rs5 19:38 BP 156 / 83; Pulse 78; Resp 20; Temp 98.2; Pulse Ox 100% on 2 lpm NC; Pain 0/10; bm8 20:35 BP 184 / 100; Pulse 83; Resp 17; Temp 98.2; Pulse Ox 100% on 2 lpm NC; Pain 0/10; bm8 21:54 BP 112 / 77; Pulse 84; Resp 14; Temp 98.2; Pulse Ox 100% on 2 lpm NC; Pain 0/10; ay 23:00 BP 104 / 66; Pulse 94; Resp 18; Temp 98.2; Pulse Ox 98% on 2 lpm NC; Pain 0/10; bm8 05/01 00:00 BP 123 / 81; Pulse 80; Resp 18; Temp 98.2; Pulse Ox 100% on 2 lpm NC; Pain 0/10; bm8 01:00 BP 130 / 84; Pulse 77; Resp 15; Temp 98.2; Pulse Ox 100% on 2 lpm NC; Pain 0/10; bm8 02:00 BP 138 / 87; Pulse 80; Resp 18; Temp 98.2; Pulse Ox 100% on 2 lpm NC; Pain 0/10; bm8 02:15 BP 157 / 85; Pulse 89; Resp 17; Temp 98.2; Pulse Ox 94% on R/A; Pain 0/10; bm8 19:38 Pain Scale: Adult bm8 20:35 Pain Scale: Adult bm8 21:54 Pain Scale: Adult ay 23:00 Pain Scale: Adult bm8 05/01 00:00 Pain Scale: Adult bm8 01:00 Pain Scale: Adult bm8 02:00 Pain Scale: Adult bm8 02:15 Pain Scale: Adult bm8 Harbert Coma Score: 04/30 18:18 Eye Response: spontaneous(4). Motor Response: obeys commands(6). Verbal Response: enrike oriented(5). Total: 15. 20:35 Eye Response: spontaneous(4). Motor Response: obeys commands(6). Verbal Response: bm8 oriented(5). Total: 15. 21:54 Eye Response: spontaneous(4). Motor Response: obeys commands(6). Verbal Response: ay oriented(5). Total: 15. 05/01 00:00 Eye Response: spontaneous(4). Motor Response: obeys commands(6). Verbal Response: bm8 oriented(5). Total: 15. 01:00 Eye Response: spontaneous(4). Motor Response: obeys commands(6). Verbal Response: bm8 oriented(5). Total: 15. 02:00 Eye Response: spontaneous(4). Motor Response: obeys commands(6). Verbal Response: bm8 oriented(5). Total: 15. 02:15 Eye Response: spontaneous(4). Motor Response: obeys commands(6). Verbal Response: bm8 oriented(5). Total: 15. NIH Stroke Scale Scores: 04/30 18:51 NIHSS Score: 0 [facility] ED Course: 17:39 Patient arrived in ED. ss 17:40 Patient has correct armband on for positive identification. Bed in low position. Call rs5 light in reach. Side rails up X2. 17:40 No provider procedures requiring assistance completed. rs5 17:41 Zach Hernandez MD is Attending Physician. [facility] 17:51 Emanuel Gomez RN is Primary Nurse. rs5 17:54 Triage completed. rs5 19:00 Safety Checks: The door is open or patient has been placed in a hallway bed/chair. ay Items have not been removed There are no family/friend visitors at this time Sitter present at this time. due to pt's condition items left in room for monitoring. 19:00 Client placed on continuous cardiac and pulse oximetry monitoring. NIBP monitoring bm8 applied. traffic monitor specialist on. Pulse ox on. NIBP on. Door closed. Noise minimized. Warm blanket given. Pillow given. Verbal reassurance given. Head of bed lowered. 19:00 Arm band placed on right wrist. bm8 20:00 Safety Checks: The door is open or patient has been placed in a hallway bed/chair. ay Items have not been removed There are no family/friend visitors at this time Sitter present at this time. due to pt's condition items left in room for monitoring. 20:02 Straight cath inserted, using sterile technique, 14 Fr. Specimen obtained. Returned bm8 clear yellow urine. Patient tolerated well. cleaned and changed diaper of pt, provided new warm blanket. 20:33 Urine collected: straight cath specimen, clear, Amount Returned: 300mL. PT placed on bm8 Pur WIC, continuous suction to wall. Maintain EMS IV. Dressing intact. Good blood return noted. Site clean \\T\\ dry. Gauge \\T\\ site: 20g RAC. Flushed with 10 mL NS. Oxygen administration via nasal cannula \\T\\ 2L/min Response to oxygen therapy: symptoms improved. 21:00 Safety Checks: The door is open or patient has been placed in a hallway bed/chair. ay Items have not been removed There are no family/friend visitors at this time Sitter present at this time. due to pt's condition items left in room for monitoring. 21:35 Faxed pt clinicals to the following facilities for placement; [facility]. 21:59 [facility] declined. rv1 22:00 Safety Checks: The door is open or patient has been placed in a hallway bed/chair. ay Items have not been removed There are no family/friend visitors at this time Sitter present at this time. due to pt's condition items left in room for monitoring. 23:00 Safety Checks: The door is open or patient has been placed in a hallway bed/chair. bm8 Items have not been removed There are no family/friend visitors at this time Sitter present at this time. due to pt's condition items left in room for monitoring. 05/01 00:00 Safety Checks: The door is open or patient has been placed in a hallway bed/chair. bm8 Items have not been removed There are no family/friend visitors at this time Sitter present at this time. due to pt's condition items left in room for monitoring. 01:00 Safety Checks: The door is open or patient has been placed in a hallway bed/chair. bm8 Items have not been removed There are no family/friend visitors at this time Sitter present at this time. due to pt's condition items left in room for monitoring. 02:00 Safety Checks: The door is open or patient has been placed in a hallway bed/chair. bm8 Items have not been removed There are no family/friend visitors at this time Sitter present at this time. due to pt's condition items left in room for monitoring. 02:21 Attending Physician role handed off by Zach Hernandez MD sp4 02:21 Hussain Orosco MD is Attending Physician. sp4 02:30 Provided Education on: post er care, Discharge safety plan made. bm8 02:30 IV discontinued, intact, bleeding controlled, No redness/swelling at site. Pressure bm8 dressing applied. Administered Medications: 04/30 18:12 Drug: NS 0.9% IV 1000 ml IV at 1000 ml once; to be given as a bolus over 60 minutes rs5 Route: IV; Rate: 1000 ml; Site: right antecubital; 20:28 Follow up: Response: No adverse reaction; IV Status: Completed infusion; IV Intake: bm8 1000ml 18:40 Drug: Thiamine IV 100 mg IV at bolus once Route: IV; Rate: bolus; Site: right rs5 antecubital; 20:28 Follow up: Response: No adverse reaction; IV Status: Completed infusion; IV Intake: [id number] 18:40 Drug: foLIC Acid IVPB 1 mg IVPB once Route: IVPB; Site: right antecubital; rs5 20:27 Follow up: Response: No adverse reaction; IV Status: Completed infusion; IV Intake: bm8 0.01ml 18:40 Drug: Magnesium Sulfate IVPB 2 grams IVPB once over 2 hrs Route: IVPB; Infused Over: 2 rs5 hrs; Site: right antecubital; 20:27 Follow up: Response: No adverse reaction; IV Status: Completed infusion; IV Intake: bm8 100ml 20:09 CANCELLED (Duplicate Order): [id number] mg PO once enrike 20:25 Drug: HydrALAZINE PO 25 mg PO once Route: PO; bm8 22:01 Follow up: Response: No adverse reaction ay 20:25 Drug: Norvasc PO 5 mg PO once Route: PO; bm8 22:01 Follow up: Response: No adverse reaction ay 20:28 Drug: Potassium PO Effervescent Tablet 25 mEq PO once; dissolve in 4 ounces of water or bm8 juice Route: PO; 22:01 Follow up: Response: No adverse reaction ay 20:29 Drug: hydrALAZINE IVP 10 mg IVP once Route: IVP; Site: right antecubital; bm8 22:01 Follow up: Response: No adverse reaction ay Medication: 19:22 VIS not applicable for this client. rs5 Intake: 20:27 IV: 100ml; Total: 100ml. bm8 20:27 IV: 0ml; Total: 100ml. bm8 20:28 IV: 10ml; Total: 110ml. bm8 20:28 IV: 1000ml; Total: 1110ml. bm8 Outcome: 18:25 ER care complete, transfer ordered by . enrike 05/01 02:22 Discharge ordered by sp4 02:30 Discharged to home ambulatory, bm8 02:30 Condition: stable 02:30 Discharge instructions given to patient, Instructed on discharge instructions, follow up and referral plans. safety practices, Demonstrated understanding of instructions, follow-up care, 02:32 Patient left the ED. bm8 NIH Stroke Scale - NIH Stroke Score Date: 04/30/2024 Time: 18:51 Total Score = 0 10. Dysarthria (speech clarity - read or repeat words) - 0(Normal) 11. Extinction and Inattention (visual/tactile/auditory/spatial/personal) - 0(No abnormality) 1a. Level of Consciousness (LOC) - 0(Alert) 1b. Level of Consciousness (LOC) (Month \\T\\ Age) - 0(Both) 1c. LOC Commands (Open \\T\\ Closes Eyes/Assistant Site Manager) - 0(Both) 2. Best Gaze (Lateral Gaze Paresis) - 0(Normal) 3. Visual Field Loss - 0(No visual loss) 4. Facial Palsy - 0(Normal) 5a. Left Arm: Motor (10-second hold) - 0(No drift) 5b. Right Arm: Motor (10-second hold) - 0(No drift) 6a. Left Leg: Motor (5-second hold - always test supine) - 0(No drift) 6b. Right Leg: Motor (5-second hold - always test supine) - 0(No drift) 7. Limb Ataxia (finger/nose \\T\\ heel/wheeler - test with eyes open) - 0(Absent) 8. Sensory Loss (pinprick arms/legs/face) - 0(Normal) 9. Best Language: Aphasia (description/naming/reading) - 0(No aphasia) Initials: [facility] Signatures: Zach Hernandez MD MD cha Blanchard, Shelby RN RN ss Aruna Orona rv1 Emanuel Gomez RN RN rs5 Hussain Orosco MD MD sp4 Lupillo Mcdaniel RN RN bm8 Teressa Mondragon RN RN ay Corrections: (The following items were deleted from the chart) 04/30 22:37 19:00 Safety Checks: The door is open or patient has been placed in a hallway ay bed/chair. Items have not been removed There are no family/friend visitors at this time Sitter present at this time. ay 20:00 Safety Checks: The door is open or patient has been placed in a hallway ay bed/chair. Items have not been removed There are no family/friend visitors at this time Sitter present at this time. ay 21:00 Safety Checks: The door is open or patient has been placed in a hallway ay bed/chair. Items have not been removed There are no family/friend visitors at this time Sitter present at this time. ay 05/01 00:09 00:08 Reassessment: Patient appears in no apparent distress at this time. No bm8 changes from previously documented assessment. Patient denies pain at this time. bm8
[2024-04-30] MEDS ORDERED: THIAMINE 200 MG/2 ML INJ ONE (18:48)
[2024-04-30 18:49] LABS: ALT/SGPT 15 U/L (13-56); AST/SGOT 13 U/L (15-37); Alkaline Phosphatase 56 U/L (45-117); Anion Gap 12.2 mEq/L (5.0-15.0); BUN Blood Urea Nitrogen 14 mg/dL (7-18); Bicarbonate 23 mEq/L (21-32); Bilirubin Total 0.3 mg/dL (0.2-1.0); Globulin 3.1 g/dL (2.3-3.5); Glomerular Filtration Rate 97 ml/min (=/>90); Glucose Level 84 mg/dL (74-106); Potassium 3.2 mEq/L (3.5-5.1); Protein, Total 6.1 g/dL (6.4-8.2); Sodium Level 139 mEq/L (136-145)
[2024-04-30] MEDS ORDERED: Magnesium Sulfate 2gm IVPB 2 G/50 ML BAG IV ONE (18:49)
[2024-04-30] MEDS ORDERED: FOLIC ACID 5 MG/ML VIAL ONE (18:49)
[2024-04-30 18:51] LABS: Bilirubin Direct < 0.2 mg/dL (0-0.2); Bilirubin Indirect, Calculated 0.1 mg/dL (0.2-0.8)
[2024-04-30] MEDS ORDERED: AMLODIPINE 5 MG TAB ONE (20:12)
[2024-04-30] MEDS ORDERED: POTASSIUM 25 MEQ EFFERV TAB ONE (20:12)
[2024-04-30] MEDS ORDERED: HYDRALAZINE HCL 25 MG TABLET ONE (20:12)
[2024-04-30] MEDS ORDERED: HYDRALAZINE HCL 20 MG/ML VIAL ONE (20:12)
[2024-04-30 20:54] LABS: Barbiturates NEGATIVE (NEGATIVE); Benzodiazepines NEGATIVE (NEGATIVE); Cocaine NEGATIVE (NEGATIVE); METHAMPHETAM NEGATIVE (NEGATIVE); Methadone NEGATIVE (NEGATIVE); Opiates NEGATIVE (NEGATIVE); Phencyclidine NEGATIVE (NEGATIVE); THC Cannibis NEGATIVE (NEGATIVE)
[2024-04-30 20:59] LABS: Specific Gravity < 1.005 (1.005-1.030); Sqamous Epithelial None Seen /HPF (None Seen); Urine Bacteria None Seen /HPF (<20); Urine Bilirubin NEGATIVE (Negative); Urine Blood Negative (Negative); Urine Clarity Clear (Clear); Urine Color Colorless (Yellow); Urine Culture Reflex Order NOT NEEDED; Urine Glucose NEGATIVE (Negative); Urine Ketones NEGATIVE (Negative); Urine Microscopic Reflex YN ORDER UMIC; Urine Nitrite NEGATIVE (Negative); Urine Protein NEGATIVE (Negative); Urine RBC None Seen /HPF (None Seen); Urine Urobilinogen Normal (Normal); Urine WBC None Seen /HPF (<5)
[2024-05-01 02:38] VITALS: TEMP 98.2
[2024-05-01 02:49] VITALS: BP 157/85; O2SAT 94
--- NOTE | 2024-05-04 14:18 | EKG ---
Test Date: 2024-04-30 Test Time: 18:36:54 Adventure Guide: AM MEASUREMENT RESULTS: Intervals: Rate: 81 W[place]: 190 QRSD: 142 QT: 468 QTc: 543 [place]: P: 76 W[place]: 190 QRS: -1 T: 92 INTERPRETIVE STATEMENTS: Normal sinus rhythm Left bundle branch block Abnormal ECG Compared to ECG 03/04/2024 02:38:41 No significant changes Electronically Signed On 05-04-24 14:15:17 AIR DIRECTOR by Toby Castanon
== END 2024-05-01 02:32 | disposition home or self-care (01) ==
LOC: ER 17:38
DX: F10.129 Alcohol abuse with intoxication, unspecified (principal); R53.1 Weakness; I10 Essential (primary) hypertension; J44.9 Chronic obstructive pulmonary disease, unspecified; F17.210 Nicotine dependence, cigarettes, uncomplicated
CPT/HCPCS: 96365; 96367; 96368; 93005; 85025; 81001; 80048; 36415; 85610; 80076; 85730; 80307; 51702; 96375; 99285; 80143; 80179; 82077; J3411; J3475; J0360; J7030

== ENCOUNTER 2024-05-05 18:34 | Emergency (ER) | payer OTHER ==
[2024-05-05 19:22] LABS: Absolute Eosinophils 0.2 K/uL (0-0.5); Absolute Lymphocytes (CBC) 1.6 K/uL (0.7-4.9); Absolute Monocytes 0.5 K/uL (0.1-1.3); Absolute Neutrophil 2.7 K/uL (1.8-8.0); Basophils % 0.6 % (0-1.3); Eosinophils % 3.4 % (0-4.4); Hematocrit 41.7 % (36.0-45.0); Hemoglobin 13.9 g/dL (12.0-15.0); MCH 31.6 pg (27.0-35.0); MCHC 33.4 g/dL (32.0-36.0); MCV 94.7 fL (80-100); MPV 7.7 fL (7.6-11.3); Monocytes % 10.7 % (3.3-12.3); Neutrophils % 53.3 % (41.7-73.7); Platelets 263 thou/uL (152-406); Red Cell Distribution Width 13.5 % (12.1-15.2)
[2024-05-05 19:40] LABS: PT Prothrombin Time 10.8 SECONDS (9.4-12.5); PTT, Activated Partial Thromb 30.5 SECONDS (24.3-36.9); Protime INR 0.96
[2024-05-05] MEDS ORDERED: TDAP (DIPHTH,PERTUSS(ACELL),TET VAC) 0.5 ML VIAL IMVAC ONE (19:40)
[2024-05-05 19:43] LABS: ALT/SGPT 17 U/L (13-56); AST/SGOT 17 U/L (15-37); Albumin 3.1 g/dL (3.4-5.0); Albumin/Globulin Ratio 0.8 (1.1-1.8); Alkaline Phosphatase 62 U/L (45-117); Anion Gap 14.8 mEq/L (5.0-15.0); BUN Blood Urea Nitrogen 14 mg/dL (7-18); Bicarbonate 26 mEq/L (21-32); Bilirubin Direct 0.2 mg/dL (0-0.2); Bilirubin Indirect, Calculated 0.1 mg/dL (0.2-0.8); Bilirubin Total 0.3 mg/dL (0.2-1.0); Globulin 3.7 g/dL (2.3-3.5); Glomerular Filtration Rate 56 ml/min (=/>90); Glucose Level 97 mg/dL (74-106); Potassium 2.8 mEq/L (3.5-5.1); Protein, Total 6.8 g/dL (6.4-8.2); Sodium Level 135 mEq/L (136-145)
--- NOTE | 2024-05-05 20:12 | RAD REPORT ---
EXAM: CT brain without contrast HISTORY: ground level fall COMPARISON: None TECHNIQUE: Multiple contiguous axial images were obtained and a CT of the brain without contrast. Sag ittal and coronal reformats were performed. FINDINGS: No evidence of hydrocephalus, intracranial hemorrhage, or extra-axial fluid collection. The brain is normal in morphology. The calvarium is intact. The visualized paranasal sinuses and mastoid air cells are essentially clear . IMPRESSION: No evidence of acute intracranial abnormality. EXAM: CT of the cervical spine without contrast HISTORY: ground level fall COMPARISON: None TECHNIQUE: Multiple contiguous axial images were obtained in a CT of the cervical spine without contr ast. Sagittal and coronal reformats were performed. FINDINGS: The vertebral bodies demonstrate normal height and alignment. No evidence of acute fracture or subluxation.. Mild multilevel degenerative changes, stable. No prevertebral soft tissue swelling is seen. The posterior facets are well aligned. Normal alignment of the skull base with the cervical spine is seen. The lung apices are unremarkable. IMPRESSION: No evidence of acute osseous abnormality of the cervical spine.
--- NOTE | 2024-05-05 20:54 | EDPHYS ---
Physician Documentation [facility] Name: Heaven Bhatia Age: 63 yrs Sex: Female : 1960 Arrival Date: 05/05/2024 Time: 18:34 Bed 7 Private MD: ED Physician Neida Tamez HPI: 05/05 18:38 This 63 yrs old Female presents to ER via Unassigned with complaints of ground level ec2 fall. 18:38 Patient arrives today for evaluation after a ground-level fall. Patient reportedly had ec2 multiple alcoholic beverages, had a fall, injured the right forehead. Unclear if LOC, unclear if on blood thinners.. Historical: - PMHx: 18:38 chronic back pain; COPD; etoh abuse; Hyperlipidemia; Hypertensive disorder; Seizure; iw - PSHx: 18:38 Appendectomy; backsurgery; iw - Immunization history:: Adult Immunizations unknown. - Infectious Disease History:: Pt not able to answer appropriately . - Social history:: Smoking status: Patient reports the use of cigarette tobacco products, unknown amount. ROS: 18:38 Constitutional: as per hpi ec2 Exam: 18:38 Constitutional: GEN: NAD Head: atraumatic Eyes: EOMI Ears: External ears are ec2 normal. CV: regular rate LUNGS: no respiratory distress ABD: non-distended SKIN: Dried blood present to the right head, approximately 3 cm laceration to the right forehead. MSK: no evidence of trauma Vital Signs: 19:26 BP 118 / 75; Pulse 73; Resp 16; Temp 98.4; Pulse Ox 93% on R/A; Weight 68.04 kg; dd2 20:30 BP 111 / 69; Pulse 80; Resp 15; Pulse Ox 95% on R/A; dd2 21:15 BP 125 / 81; Pulse 80; Resp 16; Pulse Ox 94% on R/A; dd2 22:45 BP 120 / 71; Pulse 79; Resp 16; Pulse Ox 98% ; dd2 1203 00:30 BP 118 / 69; Pulse 72; Resp 15; Pulse Ox 96% on R/A; dd2 02:26 BP 115 / 72; Pulse 74; Resp 16; Temp 98.1; Pulse Ox 98% on R/A; dd2 [place]anie Coma Score: 05/05 19:26 Eye Response: spontaneous(4). Motor Response: obeys commands(6). Verbal Response: dd2 confused(4). Total: 14. MDM: 18:36 Medical Screening Exam initiated ec2 18:38 Data reviewed: vital signs, nurses notes. ED course: Patient arrives today for ec2 evaluation after ground-level fall with alcohol intoxication self-reported. Will obtain lab work, CT scan of the head and C-spine given the alcohol intoxication status.. 19:27 ED course: EKG independently reviewed and interpreted by me, shows normal sinus rhythm, ec2 rate of 76, no acute ST segment elevations, intervals are nonactionable.. 20:14 ED course: Lab work shows alcohol intoxication which is consistent with clinical ec2 presentation, CT scan of the head and C-spine without acute traumatic pathology.. 20:14 ED course: Was signed out pending clinical sobering.. ec2 20:25 ED course: Patient signed out to me by daytime physician. Patient is a 63-year-old sp3 female well-known to the ED who presents with alcohol intoxication and fall. Patient has been cleared from a trauma standpoint and currently awaiting clinical sober state to be safely discharged. Vital signs are normal and patient is in no acute distress resting.. 20:53 ED course: Patient now alert and oriented, awake, carrying on normal conversation, sp3 ambulatory in no acute distress. We will safely discharge her home at this time. She will not be driving or operating heavy machinery.. 12 18:37 Order name: Acetaminophen; Complete Time: 20:13 ec2 05/05 18:37 Order name: Basic Metabolic Panel; Complete Time: 20:13 ec2 05/05 18:37 Order name: CBC with Diff; Complete Time: 20:13 ec2 05/05 18:37 Order name: ETOH Level; Complete Time: 20:13 ec2 05/05 18:37 Order name: Hepatic Function; Complete Time: 20:13 ec2 05/05 18:37 Order name: PT-INR; Complete Time: 20:13 ec2 05/05 18:37 Order name: Ptt, Activated; Complete Time: 20:13 ec2 05/05 18:37 Order name: Salicylate; Complete Time: 20:13 ec2 05/05 18:36 Order name: CT Head C Spine; Complete Time: 20:13 ec2 05/05 18:37 Order name: EKG; Complete Time: 18:38 ec2 05/05 18:37 Order name: Wound Care; Complete Time: 19:48 ec2 05/05 18:37 Order name: EKG - Nurse/Tech; Complete Time: 19:26 ec2 05/05 18:37 Order name: IV Saline Lock; Complete Time: 19:17 ec2 05/05 18:37 Order name: Labs collected and sent; Complete Time: 19:17 ec2 05/05 18:37 Order name: Suicide Screening ([place]); Complete Time: 19:31 ec2 Administered Medications: 19:48 Drug: Boostrix Tdap IM 0.5 ml IM once; as a single dose Route: IM; Site: left deltoid; dd2 20:03 Follow up: Response: No adverse reaction dd2 Disposition Summary: 05/05/24 20:53 Discharge Ordered Notes: Location: Home sp3 Condition: Stable sp3 Diagnosis - Alcohol intoxication sp3 Followup: sp3 - With: Private Physician - When: Upon discharge from the Emergency Department - Reason: Continuance of care Discharge Instructions: - Discharge Summary Sheet sp3 - Alcohol Intoxication sp3 Forms: - Medication Reconciliation Form sp3 - Antibiotic Education sp3 - Prescription Opioid Use sp3 - Patient Portal Instructions sp3 - Leadership Thank You Letter sp3 Signatures: Dispatcher [employer] Kristin Freedman, ELIANE [place] iw Neida Tamez MD MD sp3 Keyshawn Kendall MD MD ec2 DASHAWN RATLIFF RN RN dd2 Corrections: (The following items were deleted from the chart) 18:38 18:38 ACETAMINOPHEN+C.LAB.BRZ ordered. EDMS EDMS 18:38 18:38 BASIC METABOLIC PANEL+C.LAB.BRZ ordered. EDMS EDMS 18:38 18:38 CBC+H.LAB.BRZ ordered. EDMS EDMS 18:38 18:38 ETHANOL+C.LAB.BRZ ordered. EDMS EDMS 18:38 18:38 HEPATIC FUNCTION+C.LAB.BRZ ordered. EDMS EDMS 18:38 18:38 PROTIME (+INR)+COAG.LAB.BRZ ordered. EDMS EDMS 18:38 18:38 PTT, ACTIVATED+COAG.LAB.BRZ ordered. EDMS EDMS 18:38 18:38 SALICYLATE+C.LAB.BRZ ordered. EDMS EDMS 18:38 18:38 URINE DRUG SCREEN+UC.LAB.BRZ ordered. EDMS EDMS
--- NOTE | 2024-05-05 20:54 | ER ---
Nurse's Notes [facility] Name: Heaven Bhatia Age: 63 yrs Sex: Female : 1960 Arrival Date: 05/05/2024 Time: 18:34 Bed 7 Private MD: Diagnosis: Alcohol intoxication Presentation: 05/05 18:36 Chief complaint: Patient states: fell hit her head, dent to right side of head and skin iw tear to right side of neck. Coronavirus screen: At this time, the client does not indicate any symptoms associated with coronavirus-19. Ebola Screen: No symptoms or risks identified at this time. Initial Sepsis Screen: Does the patient meet any 2 criteria? No. Patient's initial sepsis screen is negative. Does the patient have a suspected source of infection? No. Patient's initial sepsis screen is negative. Risk Assessment: Do you want to hurt yourself or someone else? Patient reports no desire to harm self or others. 18:36 Method Of Arrival: EMS: [facility] iw 18:36 Acuity: MARILYNN 3 iw Triage Assessment: 18:45 General: Appears in no apparent distress. Behavior is uncooperative. Pain: Denies pain. bp EENT: No deficits noted. Neuro: Level of Consciousness is awake, confused. Cardiovascular: Rhythm is sinus rhythm. Respiratory: No deficits noted. GI: No signs and/or symptoms were reported involving the gastrointestinal system. GI: No signs and/or symptoms were reported involving the gastrointestinal system. : No signs and/or symptoms were reported regarding the genitourinary system. Derm: No deficits noted. Musculoskeletal: No deficits noted. Injury Description: Laceration sustained to right eye. Historical: - PMHx: 18:38 chronic back pain; COPD; etoh abuse; Hyperlipidemia; Hypertensive disorder; Seizure; iw - PSHx: 18:38 Appendectomy; backsurgery; iw - Immunization history:: Adult Immunizations unknown. - Infectious Disease History:: Pt not able to answer appropriately . - Social history:: Smoking status: Patient reports the use of cigarette tobacco products, unknown amount. Screenin:26 [facility] ED Fall Risk Assessment (Adult) History of falling in the last 3 months, dd2 including since admission Yes- single mechanical fall (1 pt). [facility] ED Fall Risk Assessment (Adult) Confusion or Disorientation Yes (5 pts) Intoxicated or Sedated Yes (3 pts) Impaired Gait No (0 pts) Mobility Assist Device Used No (0 pt) Altered Elimination No (0 pt) Score/Fall Risk Level 3 or more points = High Risk Oriented to surroundings, Maintained a safe environment, Educated pt \\T\\ family on fall prevention, incl call for assistance when getting out of bed, Assessed \\T\\ reinforced patient's understanding of fall precautions, Provided non-skid footwear, Hourly rounding (assess needs \\T\\ fall precautionary measures) done, Offered frequent toileting (1:1 observation), Remained with patient while ambulating. Abuse screen: Denies threats or abuse. Nutritional screening: No deficits noted. Tuberculosis screening: No symptoms or risk factors identified. Assessment: 19:32 General: Appears unkempt, Behavior is cooperative, agitated, Smells of alcohol. Pain: dd2 Complains of pain in right buddhist Unable to use pain scale. Does not appear to understand pain scale. Neuro: Level of Consciousness is awake, alert, obeys commands, Oriented to person, place. Cardiovascular: Patient's skin is warm and dry. Respiratory: Airway is patent Respiratory effort is even, unlabored, Respiratory pattern is regular, symmetrical. GI: No deficits noted. No signs and/or symptoms were reported involving the gastrointestinal system. Abdomen is non-distended, Abd is soft and non tender X 4 quads. : No deficits noted. No signs and/or symptoms were reported regarding the genitourinary system. EENT: No deficits noted. No signs and/or symptoms were reported regarding the EENT system. Derm: Wound noted right buddhist Wound is laceration to RT buddhist, skin tear to RT neck Reports pain. Musculoskeletal: No deficits noted. No signs and/or symptoms reported regarding the musculoskeletal system. Injury Description: Laceration sustained to right buddhist skin tear Rt neck. 05/06 02:26 Reassessment: Patient is alert, oriented x 3, equal unlabored respirations, skin dd2 warm/dry/pink. Pt is AAOX3, AMBULATORY WITH A STEADY GAIT. Patient states symptoms have improved. Psych: 05/05 19:32 [place] Suicide Severity Screening: In the past month, have you wished you were dd2 or wished you could go to sleep and not wake up? Patient responds "No." "In the past month, have you actually had any thoughts of killing yourself?" Patient responds "no." "In your lifetime, have you ever done anything, started to do anything, or prepared to do anything to end your life?" Patient responds "no.". Subjective: Patient's mood is irritable, Delusions are denied, Hallucinations are denied. Objective: Patient is cooperative, irritable, Speech is rambling. Interventions: Searched person for dangerous items. Safety Checks: Patient uses unknown Last use was today. Commitment: Pt denies SI/HI. Vital Signs: 19:26 BP 118 / 75; Pulse 73; Resp 16; Temp 98.4; Pulse Ox 93% on R/A; Weight 68.04 kg; dd2 20:30 BP 111 / 69; Pulse 80; Resp 15; Pulse Ox 95% on R/A; dd2 21:15 BP 125 / 81; Pulse 80; Resp 16; Pulse Ox 94% on R/A; dd2 22:45 BP 120 / 71; Pulse 79; Resp 16; Pulse Ox 98% ; dd2 05/06 00:30 BP 118 / 69; Pulse 72; Resp 15; Pulse Ox 96% on R/A; dd2 02:26 BP 115 / 72; Pulse 74; Resp 16; Temp 98.1; Pulse Ox 98% on R/A; dd2 [place] Coma Score: 05/05 19:26 Eye Response: spontaneous(4). Motor Response: obeys commands(6). Verbal Response: dd2 confused(4). Total: 14. ED Course: 18:35 Patient arrived in ED. ec2 18:35 Keyshawn Kendall MD is Attending Physician. ec2 18:38 Triage completed. iw 18:39 Arm band placed on. iw 18:58 CT Head C Spine In Process Unspecified. EDMS 19:04 DASHAWN RATLIFF, RN is Primary Nurse. dd2 19:26 Patient has correct armband on for positive identification. Bed in low position. Call dd2 light in reach. Side rails up X2. Client placed on continuous cardiac and pulse oximetry monitoring. NIBP monitoring applied. strings teacher on. Noise minimized. Warm blanket given. Pillow given. Verbal reassurance given. 19:26 Initial lab(s) drawn, by me, sent to lab. EKG done, by ED staff, reviewed by Keyshawn Kendall MD. Inserted saline lock: 20 gauge in right antecubital area, using aseptic technique. Blood collected. Flushed with 10 mL NS. Patient maintains SpO2 saturation greater than 95% on room air. 20:01 Wound care: to skin tear located on right lateral aspect of neck was cleaned with dd2 Betadine, dressed with Neosporin, band aid, Patient tolerated well. 20:20 Attending Physician role handed off by Keyshawn Kendall MD sp3 20:20 Neida Tamez MD is Attending Physician. sp3 21:33 Awaiting transportation, Awaiting: Pt intoxicated at this time and unsafe to place in dd2 lobby. Unable to locate transportation back to residence. ELIANE [place] charge aware. 12 00:30 Provided Education on: d/c education. dd2 00:30 No provider procedures requiring assistance completed. IV discontinued, intact, dd2 bleeding controlled, No redness/swelling at site. Pressure dressing applied. Administered Medications: 05/05 19:48 Drug: Boostrix Tdap IM 0.5 ml IM once; as a single dose Route: IM; Site: left deltoid; dd2 20:03 Follow up: Response: No adverse reaction dd2 Medication: 19:48 Vaccine Information Statement (VIS) provided today. Questions and/or concerns dd2 addressed. VIS edition date: January 07, 2021. Outcome: 20:53 Discharge ordered by . sp3 05/06 00:30 Discharged to home ambulatory, dd2 Condition: stable Discharge instructions given to patient, Instructed on discharge instructions, follow up and referral plans. wound care, Demonstrated understanding of instructions, follow-up care, wound care, 02:29 Patient left the ED. dd2 Signatures: Dispatcher [employer] Kristin Freedman RN RN iw Peltier, Brian, RN RN bp Neida Tamez MD MD sp3 Keyshawn Kendall MD MD ec2 DASHAWN RATLIFF RN RN dd2 Corrections: (The following items were deleted from the chart) 05/05 21:33 21:31 Wound care: to skin tear located on right lateral aspect of neck was cleaned with dd2 Betadine, dressed with Neosporin, band aid, Patient tolerated well. dd2
[2024-05-06 05:00] VITALS: BP 115/72; TEMP 98.1; O2SAT 98
== END 2024-05-06 02:29 | disposition home or self-care (01) ==
LOC: ER 18:34
DX: F10.129 Alcohol abuse with intoxication, unspecified (principal); S01.81XA Laceration without foreign body of other part of head, initial encounter; W18.30XA Fall on same level, unspecified, initial encounter; Z72.0 Tobacco use
CPT/HCPCS: 36415; 70450; 72125; 80048; 80076; 80143; 80179; 82077; 85025; 85610; 85730; 96372; 99285

== ENCOUNTER 2024-05-26 01:52 | Inpatient (IN) | payer OTHER ==
[2024-05-26] MEDS ORDERED: DIAZEPAM 10 MG/2 ML INJ SYRINGE ONE ×2 (02:52→04:57)
[2024-05-26] MEDS ORDERED: NA CHLORIDE 0.9% 500 ML ONE (02:53)
[2024-05-26] MEDS ORDERED: METHYLPREDNISOLONE 125 MG INJ ONE (02:57)
[2024-05-26] MEDS ORDERED: LEVALBUTEROL 1.25 MG/3 ML NEB ONE ×2 (02:58)
[2024-05-26] MEDS ORDERED: MAGNESIUM SULFATE 1 gm IVPB 1 GM/100 ML BAG IV ONE (02:58)
[2024-05-26 03:04] LABS: SARS-CoV-2 Antigen CONTROL BLUE LINE VIS/BG OK; SARS-CoV-2 Antigen Rapid Res Negative (Negative)
[2024-05-26 03:20] LABS: Absolute Basophils 0.1 K/uL (0-0.5); Absolute Eosinophils 0.2 K/uL (0-0.5); Absolute Monocytes 0.6 K/uL (0.1-1.3); Absolute Neutrophil 2.4 K/uL (1.8-8.0); Basophils % 1.4 % (0-1.3); Eosinophils % 4.4 % (0-4.4); Hematocrit 43.3 % (36.0-45.0); Hemoglobin 14.1 g/dL (12.0-15.0); Lymphocytes % 38.1 % (15.3-44.8); MCH 30.5 pg (27.0-35.0); MCHC 32.7 g/dL (32.0-36.0); MCV 93.4 fL (80-100); MPV 7.7 fL (7.6-11.3); Monocytes % 10.9 % (3.3-12.3); Neutrophils % 45.2 % (41.7-73.7); Platelets 277 thou/uL (152-406); RBC Red Blood Cell Count 4.63 M/uL (3.86-4.86); Red Cell Distribution Width 14.5 % (12.1-15.2)
[2024-05-26 03:29] LABS: Albumin 3.7 g/dL (3.4-5.0); Albumin/Globulin Ratio 0.8 (1.1-1.8); Anion Gap 10.4 mEq/L (5.0-15.0); Bilirubin Total 0.5 mg/dL (0.2-1.0); Globulin 4.9 g/dL (2.3-3.5); Potassium 5.4 mEq/L (3.5-5.1); Protein, Total 8.6 g/dL (6.4-8.2)
[2024-05-26 03:32] LABS: Protime INR 0.83
[2024-05-26 03:35] LABS: PT Prothrombin Time 9.3 SECONDS (9.4-12.5); PTT, Activated Partial Thromb 29.9 SECONDS (24.3-36.9)
--- NOTE | 2024-05-26 04:03 | EDPHYS ---
Physician Documentation [facility] Name: Heaven Age: 63 yrs Sex: Female : 1960 Arrival Date: 05/26/2024 Time: 01:52 Bed 19 Private MD: ED Physician Melchor Jj HPI: 05/26 02:30 This 63 yrs old Female presents to ER via Ambulatory with complaints of Shortness Of rn Breath. 02:30 The patient has shortness of breath at rest, with light activity. Onset: The rn symptoms/episode began/occurred yesterday. The patient's shortness of breath is aggravated by exertion, light activity. Severity of symptoms: At their worst the symptoms were moderate in the emergency department the symptoms are unchanged. The patient has experienced similar episodes in the past. Patient reports shortness of breath for the last 2 days, productive cough, no fever. Also reports has not had anything to drink in 24 hours and feels bad. No trauma. No history of DVT or PE.. Historical: - PMHx: 02:23 chronic back pain; COPD; etoh abuse; Hyperlipidemia; Hypertensive disorder; Seizure; kj2 - PSHx: 02:23 Appendectomy; backsurgery; kj2 - Immunization history:: Adult Immunizations unknown. - Infectious Disease History:: Denies. - Social history:: Smoking status: Patient reports the use of cigarette tobacco products, unknown amount. - Family history:: not pertinent. - Hospitalizations: : No recent hospitalization is reported. ROS: 02:30 Constitutional: Negative for fever, chills, and weight loss, Cardiovascular: Negative rn for chest pain, palpitations, and edema, Respiratory: Positive for cough and shortness of breath Abdomen/GI: Negative for abdominal pain, nausea, vomiting, diarrhea, and constipation, MS/Extremity: Negative for injury and deformity, Neuro: Positive for tremor Exam: 02:30 Constitutional: This is a well developed, well nourished patient who is awake, alert, rn and in no acute distress. Head/Face: Normocephalic, atraumatic. ENT: Dry mucous membranes Cardiovascular: Tachycardic, regular. Respiratory: Mild tachypnea with diffuse expiratory wheezing, no retractions MS/ Extremity: Pulses equal, no cyanosis. Neurovascular intact. Full, normal range of motion. Equal circumference. Neuro: Awake and alert, GCS 15, oriented to person, place, time, and situation. Tongue fasciculations present Vital Signs: 02:10 BP 182 / 143; Pulse 105; Resp 20; Pulse Ox 96% ; kj2 02:26 BP 130 / 118; Pulse 111; Resp 18; Pulse Ox 96% on R/A; kj2 04:27 BP 156 / 90; Pulse 104; Resp 18; Temp 97.8; Pulse Ox 97.9% on R/A; kj2 05:26 BP 156 / 98; Pulse 95; Resp 20; Temp 97.9; Pulse Ox 95% on R/A; kj2 MDM: 01:55 Medical Screening Exam initiated rn 04:00 Differential diagnosis: Anemia Anxiety Reaction Bronchitis Chronic Obstructive rn Pulmonary Disease Myocardial Infarction pneumonia, Pneumothorax pulmonary edema. Data reviewed: vital signs, nurses notes, lab test result(s), EKG, radiologic studies, plain films, and as a result, I will admit patient. Consideration of Admission/Observation Patient was admitted/placed on observation. Escalation of care including admission/observation considered. Counseling: I had a detailed discussion with the patient and/or guardian regarding the historical points, exam findings, and any diagnostic results supporting the discharge/admit diagnosis, lab results, radiology results, the need for further work-up and treatment in the hospital. Response to treatment: the patient's symptoms have mildly improved after treatment, and as a result, I will admit patient. ED course: I personally spent 35 minutes engaged in work directly related to the individual patient's care. This does not include any time spent performing procedures. The patient has been deemed critically ill because of moderate to severe COPD exacerbation requiring IV steroids and multiple nebulizer treatments as well as moderate alcohol withdrawal and early delirium tremens.. 04:07 Independent interpretation of the following test(s) in the Emergency Department X-Ray: rn My interpretation is Chest x-ray images show right basilar pneumonia per my interpretation.. 05/26 02:29 Order name: Blood Culture Adult (2) rn 05/26 02:29 Order name: CBC with Diff; Complete Time: 03:51 rn 05/26 02:29 Order name: CMP; Complete Time: 03:51 rn 05/26 02:29 Order name: Lactate w/ 2H reflex if indic.; Complete Time: 03:51 rn 05/26 02:29 Order name: Protime (+inr); Complete Time: 03:51 rn 05/26 02:29 Order name: Ptt, Activated; Complete Time: 03:51 rn 05/26 02:30 Order name: Flu; Complete Time: 03:51 rn 05/26 02:30 Order name: SARS-COV-2 Antigen Rapid; Complete Time: 03:51 rn 05/26 03:30 Order name: Glucose, Ancillary Testing; Complete Time: 03:51 EDLA 05/26 03:32 Order name: Glucose, Ancillary Testing EDLA 05/26 04:11 Order name: Lactate w/ 2H reflex if indic. EDLA 05/26 04:11 Order name: Lipid Profile EDLA 05/26 04:11 Order name: Magnesium EDLA 05/26 04:11 Order name: Phosphorus EDLA 05/26 04:11 Order name: Basic Metabolic Panel EDLA 05/26 04:11 Order name: Basic Metabolic Panel EDLA 05/26 04:11 Order name: CBC with Automated Diff EDLA 05/26 04:11 Order name: CBC with Automated Diff EDLA 05/26 04:11 Order name: NT PRO-BNP EDLA 05/26 04:11 Order name: NT PRO-BNP EDLA 05/26 04:11 Order name: Troponin High Sensitivity EDLA 05/26 02:29 Order name: Chest Single View XRAY 05/26 02:29 Order name: EKG; Complete Time: 02:30 rn 05/26 04:11 Order name: Delirium Tremens Prophylaxis-IV Meds EDLA 05/26 02:29 Order name: Accucheck; Complete Time: 03:18 rn 05/26 02:29 Order name: Cardiac monitoring; Complete Time: 02:31 rn 05/26 02:29 Order name: EKG - Nurse/Tech; Complete Time: 03:30 rn 05/26 02:29 Order name: IV Saline Lock - Large Bore; Complete Time: 02:53 rn 05/26 02:29 Order name: Labs collected and sent; Complete Time: 02:53 rn 05/26 02:29 Order name: O2 Per Protocol; Complete Time: 02:31 rn 05/26 02:29 Order name: O2 Sat Monitoring; Complete Time: 02:31 rn 05/26 02:29 Order name: Vital Signs; Complete Time: 03:31 rn Administered Medications: 03:05 Drug: MethylPrednisoLONE IVP 125 mg IVP once Route: IVP; Site: right antecubital; kj2 06:23 Follow up: Response: No adverse reaction kj2 03:08 Drug: Diazepam IVP 5 mg IVP once Route: IVP; Site: right antecubital; kj2 06:24 Follow up: Response: No adverse reaction kj2 03:12 Drug: Magnesium Sulfate IVPB 1 grams IVPB once over 1 hrs Route: IVPB; Infused Over: 1 kj2 hrs; Site: right antecubital; 06:22 Follow up: IV Status: Completed infusion; IV Intake: 100ml kj2 03:13 Drug: NS 0.9% IV 500 ml IV at bolus once; to be given as a bolus over 30 minutes Route: kj2 IV; Rate: bolus; Site: right antecubital; 03:45 Follow up: IV Status: Completed infusion; IV Intake: 500ml kj2 03:13 Drug: Levalbuterol Inhalation 1.25 mg Inhalation once Route: Inhalation; kj2 06:24 Follow up: Response: No adverse reaction kj2 03:13 Drug: Levalbuterol Inhalation 1.25 mg Inhalation once Route: Inhalation; kj2 06:23 Follow up: Response: No adverse reaction kj2 04:10 Drug: [place] PO 10 mg-325 mg 1 tabs PO once Route: PO; kj2 06:21 Follow up: Response: No adverse reaction kj2 04:15 Drug: Rocephin IV 1 grams IV at calculated rate once; Given slow IV push per pharmacy kj2 instructions Route: IV; Rate: calculated rate; Site: right antecubital; 06:21 Follow up: IV Status: Completed infusion; IV Intake: 10ml kj2 04:23 Drug: Zithromax IVPB 500 mg IVPB once over 1 hrs; mix in 250 mL NS Route: IVPB; Infused kj2 Over: 1 hrs; Site: right antecubital; 05:23 Follow up: IV Status: Completed infusion; IV Intake: 250ml kj2 05:00 Drug: Diazepam IVP 5 mg IVP once Route: IVP; Site: right antecubital; kj2 05:25 Follow up: Response: No adverse reaction kj2 06:20 Follow up: Response: No adverse reaction kj2 Disposition: 04:00 Critical Care:. rn Disposition Summary: 05/26/24 04:02 Hospitalization Ordered Notes: Hospitalization Status: Inpatient Admission rn Provider: Prince deja Joya Location: Telemetry/MedSurg (Inpatient) rn Condition: Stable rn Problem: an acute exacerbation rn Symptoms: have improved rn Bed/Room Type: Standard rn Room Assignment: 231(05/26/24 04:15) vc1 Diagnosis - COPD/ Chronic obstructive pulmonary disease with (acute) exacerbation rn - Alcohol dependence with withdrawal, unspecified rn - Pneumonia, unspecified organism rn Forms: - Medication Reconciliation Form rn - SBAR form rn - Leadership Thank You Letter e learning coordinator time excluding procedures: 04:00 Critical care time: Bedside Care: 35 minutes. Total time: 35 minutes rn Signatures: Dispatcher [employer] EDMelchor Rizvi MD MD rn Calcote, Vanessa, RN RN vc1 Michelle Alcaraz RN RN kj2 Corrections: (The following items were deleted from the chart) 04:15 04:02 rn vc1
--- NOTE | 2024-05-26 04:03 | ER ---
Nurse's Notes [facility] Name: Heaven Bhatia Age: 63 yrs Sex: Female : 1960 Arrival Date: 05/26/2024 Time: 01:52 Bed 19 Private MD: Diagnosis: COPD/ Chronic obstructive pulmonary disease with (acute) exacerbation;Alcohol dependence with withdrawal, unspecified;Pneumonia, unspecified organism Presentation: 05/26 02:10 Chief complaint: Patient states: SHORT OF BREATH. Coronavirus screen: Client denies kj2 travel out of the [place] in the last 14 days. Ebola Screen: No symptoms or risks identified at this time. Initial Sepsis Screen: Does the patient meet any 2 criteria? No. Patient's initial sepsis screen is negative. Does the patient have a suspected source of infection? No. Patient's initial sepsis screen is negative. Risk Assessment: Do you want to hurt yourself or someone else? Patient reports no desire to harm self or others. Onset of symptoms was May 26, 2024. 02:10 Method Of Arrival: Ambulatory kj2 02:10 Acuity: MARILYNN 3 kj2 Triage Assessment: 02:10 General: Appears uncomfortable, Behavior is cooperative. Pain: Complains of pain in kj2 GENERALIZED. Respiratory: Reports shortness of breath at rest Onset: The symptoms/episode began/occurred this morning, the patient has moderate shortness of breath. GI: No signs and/or symptoms were reported involving the gastrointestinal system. : No signs and/or symptoms were reported regarding the genitourinary system. Historical: - PMHx: 02: chronic back pain; COPD; etoh abuse; Hyperlipidemia; Hypertensive disorder; Seizure; kj2 - PSHx: 02:23 Appendectomy; backsurgery; kj2 - Immunization history:: Adult Immunizations unknown. - Infectious Disease History:: Denies. - Social history:: Smoking status: Patient reports the use of cigarette tobacco products, unknown amount. - Family history:: not pertinent. - Hospitalizations: : No recent hospitalization is reported. Screenin:10 [facility] ED Fall Risk Assessment (Adult) History of falling in the last 3 months, kj2 including since admission No falls in past 3 months (0 pts) Confusion or Disorientation No (0 pts) Intoxicated or Sedated No (0 pts) Impaired Gait No (0 pts) Mobility Assist Device Used No (0 pt) Altered Elimination No (0 pt) Score/Fall Risk Level 0 - 2 = Low Risk Maintained a safe environment, Hourly rounding (assess needs \T\ fall precautionary measures) done. Abuse screen: Denies threats or abuse. Denies injuries from another. Nutritional screening: No deficits noted. Tuberculosis screening: No symptoms or risk factors identified. Assessment: 02:10 General: SEE TRIAGE. Cardiovascular: Patient's skin is warm and dry. Respiratory: kj2 Airway is patent Respiratory effort is labored, PATIENT REPORTS SHE IS PUTTING FORTH EXTRA EFFORT TO BREATH. 02:10 Cardiovascular: Rhythm is sinus rhythm. Respiratory: Breath sounds with rhonchi kj2 bilaterally. 03:14 Reassessment: Patient appears in no apparent distress at this time. Patient and/or kj2 family updated on plan of care and expected duration. Pain level reassessed. Patient is alert, oriented x 3, equal unlabored respirations, skin warm/dry/pink. 04:26 Reassessment: Patient appears in no apparent distress at this time. Patient and/or kj2 family updated on plan of care and expected duration. Pain level reassessed. Patient is alert, oriented x 3, equal unlabored respirations, skin warm/dry/pink. 05:32 Reassessment: DR JOYA MADE AWARE OF PATIENTS CURRENT BLOOD PRESSURE, HE RECCOMMENDS kj2 THE PATIENT MAT GO TO ROOM 231 WITH CURRENT BP. 06:00 Reassessment: Patient appears in no apparent distress at this time. Patient and/or kj2 family updated on plan of care and expected duration. Pain level reassessed. Patient is alert, oriented x 3, equal unlabored respirations, skin warm/dry/pink. 06:00 Reassessment: RN TAKING PATIENT TO ROOM 231 AT THIS TIME VIA WHEELCHAIR. kj2 Vital Signs: 02:10 BP 182 / 143; Pulse 105; Resp 20; Pulse Ox 96% ; kj2 02:26 BP 130 / 118; Pulse 111; Resp 18; Pulse Ox 96% on R/A; kj2 04:27 BP 156 / 90; Pulse 104; Resp 18; Temp 97.8; Pulse Ox 97.9% on R/A; kj2 05:26 BP 156 / 98; Pulse 95; Resp 20; Temp 97.9; Pulse Ox 95% on R/A; kj2 ED Course: 01:55 Patient arrived in ED. gm2 01:55 Melchor Jj MD is Attending Physician. rn 02:10 Arm band placed on Patient placed in an exam room, on a stretcher. kj2 02:19 Michelle Alcaraz, ELIANE is Primary Nurse. kj2 02:23 Triage completed. kj2 02:45 First set of blood cultures drawn by me. vk 02:53 CBC with Diff Sent. kj2 02:53 CMP Sent. kj2 02:53 Lactate w/ 2H reflex if indic. Sent. kj2 02:53 Protime (+inr) Sent. kj2 02:53 Ptt, Activated Sent. kj2 03:00 Second set of blood cultures drawn. vk 03:13 Inserted saline lock: 22 gauge in right antecubital area, using aseptic technique. vk Blood collected. Flushed with 10 mL NS. 03:14 Chest Single View XRAY In Process Unspecified. EDMS 03:14 Initial lab(s) drawn, by me, sent to lab. vk 03:15 Patient has correct armband on for positive identification. Call light in reach. kj2 Provided Education on: CALL LIGHT. 03:16 Blood Culture Adult (2) Sent. vk 03:16 CBC with Diff Sent. vk 03:16 CMP Sent. vk 03:16 Protime (+inr) Sent. vk 03:16 Ptt, Activated Sent. vk 03:16 Lactate w/ 2H reflex if indic. Sent. vk 03:30 EKG done, by ED staff. vk 04:01 Prince Joya MD is Hospitalizing Provider. rn 04:26 No provider procedures requiring assistance completed. kj2 06:00 Patient admitted, IV remains in place. kj2 Administered Medications: 03:05 Drug: MethylPrednisoLONE IVP 125 mg IVP once Route: IVP; Site: right antecubital; kj2 06:23 Follow up: Response: No adverse reaction kj2 03:08 Drug: Diazepam IVP 5 mg IVP once Route: IVP; Site: right antecubital; kj2 06:24 Follow up: Response: No adverse reaction kj2 03:12 Drug: Magnesium Sulfate IVPB 1 grams IVPB once over 1 hrs Route: IVPB; Infused Over: 1 kj2 hrs; Site: right antecubital; 06:22 Follow up: IV Status: Completed infusion; IV Intake: 100ml kj2 03:13 Drug: NS 0.9% IV 500 ml IV at bolus once; to be given as a bolus over 30 minutes Route: kj2 IV; Rate: bolus; Site: right antecubital; 03:45 Follow up: IV Status: Completed infusion; IV Intake: 500ml kj2 03:13 Drug: Levalbuterol Inhalation 1.25 mg Inhalation once Route: Inhalation; kj2 06:24 Follow up: Response: No adverse reaction kj2 03:13 Drug: Levalbuterol Inhalation 1.25 mg Inhalation once Route: Inhalation; kj2 06:23 Follow up: Response: No adverse reaction kj2 04:10 Drug: Wilton PO 10 mg-325 mg 1 tabs PO once Route: PO; kj2 06:21 Follow up: Response: No adverse reaction kj2 04:15 Drug: Rocephin IV 1 grams IV at calculated rate once; Given slow IV push per pharmacy kj2 instructions Route: IV; Rate: calculated rate; Site: right antecubital; 06:21 Follow up: IV Status: Completed infusion; IV Intake: 10ml kj2 04:23 Drug: Zithromax IVPB 500 mg IVPB once over 1 hrs; mix in 250 mL NS Route: IVPB; Infused kj2 Over: 1 hrs; Site: right antecubital; 05:23 Follow up: IV Status: Completed infusion; IV Intake: 250ml kj2 05:00 Drug: Diazepam IVP 5 mg IVP once Route: IVP; Site: right antecubital; kj2 05:25 Follow up: Response: No adverse reaction kj2 06:20 Follow up: Response: No adverse reaction kj2 Medication: 02:30 VIS not applicable for this client. kj2 Intake: 03:45 IV: 500ml; Total: 500ml. kj2 05:23 IV: 250ml; Total: 750ml. kj2 06:21 IV: 10ml; Total: 760ml. kj2 06:22 IV: 100ml; Total: 860ml. kj2 Outcome: 04:02 Decision to Hospitalize by Provider. rn 06:00 Condition: stable kj2 06:00 Admitted to Med/surg accompanied by nurse, via wheelchair, room 231, kj2 06:00 Instructed on the need for admit, 06:20 Patient left the ED. kj2 Signatures: Dispatcher [employer] EDMS Jj, Melchor, MD MD rn Cassandra Chappell gm2 Sofiya Weber Krystal, RN RN kj2
[2024-05-26] MEDS: FOLIC ACID 1 MG, MULTIVITAMINS INJ 10 ML, THIAMINE HCL 100 MG in NA CHLORIDE 0.9% 1,000 ML IV SCH ×2 (04:04→08:23)
[2024-05-26] MEDS ORDERED: ALBUTEROL 2.5 MG/3 ML NEB SOL NEB PRN (04:04)
[2024-05-26] MEDS ORDERED: HALOPERIDOL LACT 5 MG/ML INJ IM PRN (04:04)
[2024-05-26] MEDS ORDERED: FLUMAZENIL 0.1 MG/ML (5 mL VIAL) IV PRN (04:04)
[2024-05-26] MEDS ORDERED: ONDANSETRON 4 MG/2 ML VIAL IV PRN (04:04)
[2024-05-26] MEDS ORDERED: LORazepam 2 MG/ML VIAL IV PRN ×3 (04:04→08:08)
[2024-05-26] MEDS ORDERED: IPRATROPIUM BROM 0.5MG/2.5ML NEB PRN ×2 (04:04→13:45)
[2024-05-26] MEDS ORDERED: AZITHROMYCIN 500 MG INJ IVPB ONE (04:08)
[2024-05-26] MEDS ORDERED: CEFTRIAXONE 1000 MG/VIAL ONE (04:08)
[2024-05-26] MEDS ORDERED: HYDROCODONE/APAP 10/325 TAB ONE (04:08)
[2024-05-26] MEDS ORDERED: NA CHLORIDE 0.9% 250 ML ONE (04:09)
--- NOTE | 2024-05-26 04:27 | P.HP ---
Certification for Inpatient Patient admitted to: Inpatient With expected LOS: >2 Midnights Practitioner: I am a practitioner with admitting privileges, knowledge of patient current condition, hospital course, and medical plan of care. Services: Services provided to patient in accordance with Admission requirements found in Title 42 Section 412.3 of the Code of Federal Regulations Patient History Date of Service: 05/26/24 Reason for admission: COPD exacerbation, alcohol withdrawal syndrome History of Present Illness: Patient is a 63-year-old female with a known past medical history of COPD, hypertension, chronic pain syndrome and alcohol abuse. She presented to the ER complaining of shortness of breath. Patient is actively smoking although she states that she does not inhale. Chest x-ray did not reveal any obvious infiltrates. Additionally, patient is also being admitted for alcohol withdrawal syndrome. She has been using the alcohol to self medicate pain. Her last drink was yesterday around 10 AM in the morning. During my evaluation, patient was visibly tremulous. Her lung auscultation is significant for diminished air entry bilaterally. She is being admitted for COPD exacerbation and alcohol withdrawal syndrome Allergies No Known Drug Allergies Allergy (Verified 03/31/17 04:08) Unknown Home Medications: Albuterol Inhaler [Ventolin Inhaler*] 2 puff IH Q6H PRN 12/04/22 Duloxetine HCl [Cymbalta] 60 mg PO DAILY 12/04/22 Levothyroxine [Synthroid*] 88 mcg PO DAILY 12/04/22 Losartan Potassium 100 mg PO DAILY 12/04/22 Metoprolol Succinate 25 mg PO DAILY 12/04/22 Oxycodone HCl 5 mg PO BID 12/04/22 Pantoprazole [Protonix Tab*] 40 mg PO DAILY 12/04/22 Pravastatin Sodium 20 mg PO DAILY 12/04/22 Trazodone HCl 100 mg PO BEDTIME 12/04/22 Amlodipine [Norvasc*] 10 mg PO DAILY tab 12/07/22 Aspirin Chewable [Aspirin Chewable*] 81 mg PO DAILY tab.chew 12/07/22 Cefdinir [Cefdinir*] 300 mg PO BID 7 Days #14 cap 12/07/22 Doxycycline Hyclate 100 mg PO BID 7 Days #14 tab 12/07/22 predniSONE [Prednisone*] 20 mg PO BID 5 Days #10 tab 12/07/22 - Past Medical/Surgical History Diabetic: No -: Hypertension -: Dyslipidemia -: Seizure -: Chronic low back pain -: COPD -: Appendectomy -: Tonsillectomy -: Abdominal surgery -: Morphine pump placement Psychosocial/ Personal History: Patient lives at home with family. - Family History Mother -: Diabetes Father -: Cancer - Social History Alcohol use: No CD- Drugs: No Caffeine use: Yes Physical Examination - Physical Exam General: Other (Tremulous) Respiratory: Diminished, Expiratory wheezes Cardiovascular: No edema, Normal pulses, Regular rate/rhythm, Normal S1 S2 Neurological: Normal speech - Studies Laboratory Data (last 24 hrs) 05/26/24 05/26/24 05/26/24 02:50 02:50 02:50 WBC 5.20 Hgb 14.1 Hct 43.3 Plt Count 277 PT 9.3 L INR 0.83 APTT 29.9 Sodium 136 Potassium 5.4 H BUN 20 H Creatinine 0.92 Glucose 135 H Total Bilirubin 0.5 AST 50 H ALT 26 Alkaline Phosphatase 76 Microbiology Data (last 24 hrs): 05/26/24 02:35 Nasopharnyx Influenza Type A Antigen Screen - Final 05/26/24 02:35 Nasopharnyx Influenza Type B Antigen Screen - Final Assessment and Plan - Problems (Diagnosis) (1) Alcohol withdrawal syndrome Current Visit: Yes Status: Acute (2) COPD exacerbation Current Visit: No Status: Acute (3) Seizure Current Visit: No Status: Acute (4) HTN (hypertension) Current Visit: No Status: Chronic Qualifiers: (5) Hyperlipidemia Current Visit: No Status: Chronic Qualifiers: - Plan Assessment Patient is a 63-year-old female with a known history of COPD and alcohol abuse. She is being admitted for COPD exacerbation after she presented with shortness of breath. Patient is an active smoker. She also is being admitted for alcohol withdrawal syndrome. She has chronic pain syndrome and self medicates with alcohol to alleviate her pain. COPD exacerbation Alcohol withdrawal syndrome Hyperkalemia Seizure disorder Hypertension Chronic pain syndrome Plan: Will admit inpatient with telemetry Start patient on CIWA protocol which will include a banana bag and as needed benzos for withdrawal Will start patient on Solu-Medrol along with DuoNebs and empiric antibiotics Influenza screen was negative DVT and GI prophylaxis PT/OT before discharge One-time dose of Lokelma for hyperkalemia Resume rest of home medications upon reconciliation - Advance Directives Does patient have a Living Will: No Does patient have a Durable POA for Healthcare: No
[2024-05-26] MEDS ORDERED: SODIUM CHLORIDE 0.9% 10ML INJ IV PRN (04:28)
[2024-05-26] MEDS: PANTOPRAZOLE 40 MG INJ IVP SCH (04:28)
[2024-05-26] MEDS: HYDROMORPHONE HCL 1 MG/ML INJ IV ONE (04:28)
[2024-05-26] MEDS: SODIUM ZIRCONIUM CYCLOSILICATE 10 GM/PKT PO ONE (04:30)
[2024-05-26 05:28] LABS: Magnesium 1.9 mg/dL (1.6-2.4); Phosphorus 3.5 mg/dL (2.5-4.9)
--- NOTE | 2024-05-26 05:47 | RAD REPORT ---
CLINICAL HISTORY: COPD, dyspnea. COMPARISON: XR Chest 04/04/2024. TECHNIQUE: XR CHEST 1 VIEW 05/26/2024 2:29 AM DIESEL POWER SHOVEL OPERATOR FINDINGS: Cardiac silhouette is normal in size. There is minimal right basilar airspace disease. There are smal l pleural effusions. There is no pneumothorax. There are no acute osseous findings. IMPRESSION: Possible developing right basilar pneumonia. Electronically signed by: Ernesto Valero MD 05/26/2024 04:01 AM DIESEL POWER SHOVEL OPERATOR RP Due to temporary technical issues with the PACS/Familink reporting system, reports are being vee d by the in-house radiologist without review as a courtesy to ensure prompt reporting the interpreting radiologist is fully responsible for the content of the report. Transcribed Date/Time: 05/26/2024 5:47 AM
[2024-05-26 06:27] VITALS: BMI 25.6
[2024-05-26] MEDS: LORazepam 2 MG/ML VIAL IV SCH (06:50)
[2024-05-26] MEDS: ONDANSETRON 4 MG/2 ML VIAL IV PRN (06:50)
[2024-05-26] MEDS: Levofloxacin 750mg IV 750 MG/150 ML BAG IV SCH (08:23)
[2024-05-26] MEDS: ENOXAPARIN 40 MG/0.4 ML SQ SCH (08:24)
[2024-05-26] MEDS: METHYLPREDNISOLONE 40 MG INJ IV SCH (08:24)
[2024-05-26] MEDS: SODIUM ZIRCONIUM CYCLOSILICATE 10 GM/PKT PO SCH (08:25)
[2024-05-26] MEDS: chlordiazePOXIDE HCl 25 MG CAP PO SCH (08:30)
[2024-05-26] MEDS: PANTOPRAZOLE 40MG TABLET PO SCH (09:39)
[2024-05-26] MEDS: OXYCODONE HCL 5 MG TAB PO SCH (09:39)
[2024-05-26] MEDS: LORAZEPAM 0.5 MG TABLET PO PRN (12:28)
[2024-05-26] MEDS: NICOTINE 21 MG/PAT TD SCH (13:54)
[2024-05-26 13:58] VITALS: O2SAT 98
[2024-05-26] MEDS: OXYCODONE HCL 5 MG TAB PO PRN (17:08)
[2024-05-27 06:52] LABS: Absolute Lymphocytes (CBC) 0.4 K/uL (0.7-4.9); Absolute Monocytes 0.3 K/uL (0.1-1.3); Absolute Neutrophil 3.3 K/uL (1.8-8.0); Hematocrit 36.4 % (36.0-45.0); Hemoglobin 12.3 g/dL (12.0-15.0); Lymphocytes % 9.1 % (15.3-44.8); MCH 31.1 pg (27.0-35.0); MCHC 33.7 g/dL (32.0-36.0); MCV 92.3 fL (80-100); MPV 7.6 fL (7.6-11.3); Monocytes % 6.6 % (3.3-12.3); Neutrophils % 84.3 % (41.7-73.7); Nucleated Red Blood Cells % 0.1 % (0-0); Platelets 236 thou/uL (152-406); RBC Red Blood Cell Count 3.95 M/uL (3.86-4.86); Red Cell Distribution Width 14.3 % (12.1-15.2)
[2024-05-27 07:31] LABS: Anion Gap 6.1 mEq/L (5.0-15.0); Potassium 4.1 mEq/L (3.5-5.1)
[2024-05-27] MEDS: ACETYLCYST 20% 4 ML VIAL IH SCH (09:00)
[2024-05-27] MEDS: FOLIC ACID 1 MG TABLET PO SCH (10:28)
[2024-05-27] MEDS: THIAMINE HCL 100 MG TABLET PO SCH (10:28)
[2024-05-27] MEDS: Levofloxacin 750mg IV 750 MG/150 ML BAG IV SCH (12:53)
[2024-05-27 13:00] VITALS: BP 158/77; TEMP 98.1
[2024-05-27] MEDS: ALBUTEROL 2.5 MG/3 ML NEB SOL NEB PRN (14:18)
--- NOTE | 2024-05-27 18:54 | P.DS ---
Admission Date: 05/26/24 Discharge Date: 05/27/24 Reason for Admission: COPD exacerbation, alcohol withdrawal syndrome Brief History of Present Illness: Patient is a 63-year-old female with a known past medical history of COPD, hypertension, chronic pain syndrome and alcohol abuse. She presented to the ER complaining of shortness of breath. Patient is actively smoking although she states that she does not inhale. Chest x-ray did not reveal any obvious infiltrates. Additionally, patient is also being admitted for alcohol withdrawal syndrome. She has been using the alcohol to self medicate pain. Her last drink was yesterday around 10 AM in the morning. During my evaluation, patient was visibly tremulous. Her lung auscultation is significant for diminished air entry bilaterally. She is being admitted for COPD exacerbation and alcohol withdrawal syndrome - Physical Exam General: Alert, In no apparent distress, Oriented x3 HEENT: Atraumatic, Mucous membr. moist/pink, Sclerae nonicteric Respiratory: Clear to ausculation bilaterally Cardiovascular: No edema, Regular rate/rhythm, No murmurs Gastrointestinal: Soft, Non-distended, No tenderness Musculoskeletal: No clubbing Integumentary: No rashes Neurological: Normal speech, Normal affect Hospital Course: 63-year-old female with a known past medical history of COPD, hypertension, chronic pain syndrome and alcohol abuse. She presented to the ER complaining of shortness of breath. Patient is actively smoking although she states that she does not inhale. Chest x-ray did not reveal any obvious infiltrates. Additionally, patient is also being admitted for alcohol withdrawal syndrome. She has been using the alcohol to self medicate pain.. . She is being admitted for COPD exacerbation and alcohol withdrawal syndrome- improved with oxygen, steroids, IV antibiotics, nebulizers. Tolerating diet, follow-up with PCP after discharge Discharged home on Z-Brandon, Prednisone, Azithromycin, Librium, instructed on alcohol cessation Assessment COPD exacerbation Alcohol withdrawal, treated with Librium while inpatient Seizure disorder resume home meds Hypertension, hyperlipidemia, Tobacco use Continue home medicines as previously prescribed GOAL: Clear understanding of disease process INSTRUCTIONS: Physician Discharge Instructions: -Follow-up with PCP in 1 to 2 weeks -Please call Dr. Scott at [phone] if any questions regarding hospital stay -Please call nursing station at [phone] if any nursing or medication questions -Return to the emergency room if symptoms worsen Diet: ADA, low sodium Activity: Fall precautions <Aissatou Garcias - Last Filed: 05/27/24 18:50> Admission Date: 05/26/24 Discharge Date: 05/27/24 Hospital Course: Chart has been reviewed. Events of the last 24 hours have been noted. Case discussed with TERESA. I performed a substantial part of the MDM during this patient's care today. I personally made or approved the documented management plan and acknowledge its risk of complications. I agree with the findings and documentation provided in the TERESA's notes <Coby Scott - Last Filed: 06/03/24 03:49> Disposition: ROUTINE DISCHARGE Discharge Condition: GOOD Vital Signs/Physical Exam: Temp Pulse Resp BP Pulse Ox 98.1 F 88 12 158/77 H 95 05/27/24 12:00 05/27/24 12:00 05/27/24 12:52 05/27/24 12:00 05/27/24 12:52 Laboratory Data at Discharge: WBC 3.90 thou/uL (4.3-10.9) L 05/27/24 06:20 Hgb 12.3 g/dL (12.0-15.0) D 05/27/24 06:20 Hct 36.4 % (36.0-45.0) 05/27/24 06:20 Plt Count 236 thou/uL (152-406) 05/27/24 06:20 PT 9.3 SECONDS (9.4-12.5) L 05/26/24 02:50 INR 0.83 05/26/24 02:50 APTT 29.9 SECONDS (24.3-36.9) 05/26/24 02:50 Sodium 134 mEq/L (136-145) L 05/27/24 06:20 Potassium 4.1 mEq/L (3.5-5.1) D 05/27/24 06:20 BUN 24 mg/dL (7-18) H 05/27/24 06:20 Creatinine 0.85 mg/dL (0.55-1.02) 05/27/24 06:20 Glucose 156 mg/dL (74-106) H 05/27/24 06:20 Phosphorus 3.5 mg/dL (2.5-4.9) 05/26/24 04:55 Magnesium 1.9 mg/dL (1.6-2.4) 05/26/24 04:55 Total Bilirubin 0.5 mg/dL (0.2-1.0) 05/26/24 02:50 AST 50 U/L (15-37) H 05/26/24 02:50 ALT 26 U/L (13-56) 05/26/24 02:50 Alkaline Phosphatase 76 U/L (45-117) 05/26/24 02:50 Triglycerides 58 mg/dL (<150) 05/27/24 06:20 Cholesterol 246 mg/dL (<200) H 05/27/24 06:20 HDL Cholesterol 155 mg/dL (40-60) H 05/27/24 06:20 Cholesterol/HDL Ratio 1.59 05/27/24 06:20 <Aissatou Garcias - Last Filed: 05/27/24 18:50> Vital Signs/Physical Exam: Temp Pulse Resp BP Pulse Ox 98.1 F 88 12 158/77 H 95 05/27/24 12:00 05/27/24 12:00 05/27/24 12:52 05/27/24 12:00 05/27/24 12:52 Laboratory Data at Discharge: WBC 3.90 thou/uL (4.3-10.9) L 05/27/24 06:20 Hgb 12.3 g/dL (12.0-15.0) D 05/27/24 06:20 Hct 36.4 % (36.0-45.0) 05/27/24 06:20 Plt Count 236 thou/uL (152-406) 05/27/24 06:20 PT 9.3 SECONDS (9.4-12.5) L 05/26/24 02:50 INR 0.83 05/26/24 02:50 APTT 29.9 SECONDS (24.3-36.9) 05/26/24 02:50 Sodium 134 mEq/L (136-145) L 05/27/24 06:20 Potassium 4.1 mEq/L (3.5-5.1) D 05/27/24 06:20 BUN 24 mg/dL (7-18) H 05/27/24 06:20 Creatinine 0.85 mg/dL (0.55-1.02) 05/27/24 06:20 Glucose 156 mg/dL (74-106) H 05/27/24 06:20 Phosphorus 3.5 mg/dL (2.5-4.9) 05/26/24 04:55 Magnesium 1.9 mg/dL (1.6-2.4) 05/26/24 04:55 Total Bilirubin 0.5 mg/dL (0.2-1.0) 05/26/24 02:50 AST 50 U/L (15-37) H 05/26/24 02:50 ALT 26 U/L (13-56) 05/26/24 02:50 Alkaline Phosphatase 76 U/L (45-117) 05/26/24 02:50 Triglycerides 58 mg/dL (<150) 05/27/24 06:20 Cholesterol 246 mg/dL (<200) H 05/27/24 06:20 HDL Cholesterol 155 mg/dL (40-60) H 05/27/24 06:20 Cholesterol/HDL Ratio 1.59 05/27/24 06:20 <Coby Scott - Last Filed: 06/03/24 03:49> Diet: AHA Activity: Fall precautions Time spent managing pt's care (in minutes): 45 <Aissatou Garcias - Last Filed: 05/27/24 18:50> <Coby Scott - Last Filed: 06/03/24 03:49> Home Medications: Azithromycin Tab [Zithromax*] 250 mg PO ZPAK #1 brandon 05/27/24 Azithromycin Tab [Zithromax*] 250 mg PO ZPAK #1 brandon 05/27/24 Hydrocodone 10/APAP 325 [[place] 10/325] 1 tab PO Q12H PRN #20 tab 05/27/24 Hydrocodone 10/APAP 325 [[place] 10/325] 1 tab PO Q12H PRN #20 tab 05/27/24 chlordiazePOXIDE HCl [Chlordiazepoxide HCl] 10 mg PO TID #30 cap 05/27/24 chlordiazePOXIDE HCl [Chlordiazepoxide HCl] 10 mg PO TID #30 cap 05/27/24 predniSONE [Deltasone] 20 mg PO BID #11 tab 05/27/24 predniSONE [Deltasone] 20 mg PO BID #11 tab 05/27/24 New Medications: chlordiazePOXIDE HCl [Chlordiazepoxide HCl] 10 mg PO TID #30 cap chlordiazePOXIDE HCl [Chlordiazepoxide HCl] 10 mg PO TID #30 cap Hydrocodone 10/APAP 325 [[place] 10/325] 1 tab PO Q12H PRN #20 tab PRN Reason: Pain Hydrocodone 10/APAP 325 [[place] 10/325] 1 tab PO Q12H PRN #20 tab PRN Reason: Pain predniSONE [Deltasone] 20 mg PO BID #11 tab predniSONE [Deltasone] 20 mg PO BID #11 tab Azithromycin Tab [Zithromax*] 250 mg PO ZPAK #1 brandon Azithromycin Tab [Zithromax*] 250 mg PO ZPAK #1 brandon Physician Discharge Instructions: -DC IV and DC home -Follow-up with PCP in 1 to 2 weeks -Follow-up with Cardiology in 1 to 2 weeks -Please call Dr. Scott at [phone] if any questions regarding hospital stay -Please call nursing station at [phone] if any nursing or medication questions -Return to the emergency room if symptoms worsen Followup: NONE,NONE [Primary Care Provider] -
[2024-05-28] MEDS ORDERED: LORazepam 2 MG/ML VIAL IV SCH (05:00)
--- NOTE | 2024-05-30 13:48 | EKG ---
Test Date: 2024-05-26 Test Time: 03:25:58 Customer Supply Chain Analyst: TERESSA MEASUREMENT RESULTS: Intervals: Rate: 83 VA: 152 QRSD: 136 QT: 430 QTc: 505 Bowden: P: 32 VA: 152 QRS: -40 T: 87 INTERPRETIVE STATEMENTS: Normal sinus rhythm Left axis deviation Left bundle branch block Abnormal ECG Compared to ECG 05/05/2024 19:22:28 Left-axis deviation now present Electronically Signed On 05-30-24 13:39:06 RO[address] CONSULTANT by Toby Castanon
== END 2024-05-27 16:01 | disposition home or self-care (01) | DRG 897 ==
LOC: ER 01:52 → ERHOLD 04:04 → 2ND 05:03
PROVIDERS: ADMIT Internal Medicine; ATTEND Hospitalist
DX: F10.239 Alcohol dependence with withdrawal, unspecified (principal); J44.1 Chronic obstructive pulmonary disease with (acute) exacerbation; G40.909 Epilepsy, unspecified, not intractable, without status epilepticus; I10 Essential (primary) hypertension; E87.5 Hyperkalemia; M54.50 Low back pain, unspecified; F17.210 Nicotine dependence, cigarettes, uncomplicated; G89.4 Chronic pain syndrome; Z11.52 Encounter for screening for COVID-19
CPT/HCPCS: 36415; 71045; 80048; 80053; 80061; 82947; 83605; 83735; 83880; 84100; 84484; 85025; 85610; 85730; 87040; 87804; 87811; 93005; 94640; 94760; 94762; 96365; 96367; 96375; 97116; 97161; 97165; 99285; J0696; J1650; J2405; J2919; J3360; J3411; J3475; J7030; J7040; J7050; J7608; J7613; J7614

== ENCOUNTER 2024-06-02 13:31 | Emergency (ER) | payer OTHER ==
--- NOTE | 2024-06-02 14:41 | ER ---
Nurse's Notes [facility] Name: Heaven Bhatia Age: 63 yrs Sex: Female : 1960 Arrival Date: 06/02/2024 Time: 13:31 Bed 20 Private MD: Diagnosis: Alcohol dependence with intoxication, unspecified Presentation: 06/02 13:46 Chief complaint: Patient states: Bilateral leg swelling that began 2 days ago. Pt is ss requesting a refill for her hydrocodone, because it seems to help. Pt appears to be intoxicated. Admits to drinking 16 oz of Madi Beam this morning. Coronavirus screen: Client denies travel out of the [place] in the last 14 days. Ebola Screen: Patient denies exposure to infectious person. Patient denies travel to an Ebola-affected area in the 21 days before illness onset. Initial Sepsis Screen: Does the patient meet any 2 criteria? No. Patient's initial sepsis screen is negative. Does the patient have a suspected source of infection? No. Patient's initial sepsis screen is negative. Risk Assessment: Do you want to hurt yourself or someone else? Patient reports no desire to harm self or others. Onset of symptoms is unknown. 13:46 Method Of Arrival: Ambulatory ss 13:46 Acuity: MARILYNN 3 ss Triage Assessment: 14:00 General: Appears in no apparent distress. comfortable, Behavior is agitated. Pain: cm10 Complains of pain in right leg and left leg. Neuro: No deficits noted. Level of Consciousness is awake, alert, obeys commands, Oriented to person, place, time, situation, Appropriate for age. Respiratory: No deficits noted. Airway is patent Respiratory effort is even, unlabored, Respiratory pattern is regular, symmetrical. Historical: - PMHx: 13:38 chronic back pain; COPD; etoh abuse; Hyperlipidemia; Hypertensive disorder; Seizure; ss - PSHx: 13:38 Appendectomy; backsurgery; ss - Immunization history:: Adult Immunizations. - Infectious Disease History:: Denies. - Family history:: not pertinent. - Hospitalizations: : No recent hospitalization is reported. - Social history:: Smoking status: Patient reports the use of cigarette tobacco products, smokes one pack cigarettes per day. Screenin:43 [facility] ED Fall Risk Assessment (Adult) History of falling in the last 3 months, cm10 including since admission No falls in past 3 months (0 pts) Confusion or Disorientation No (0 pts) Intoxicated or Sedated No (0 pts) Impaired Gait No (0 pts) Mobility Assist Device Used No (0 pt) Altered Elimination No (0 pt) Score/Fall Risk Level 0 - 2 = Low Risk Oriented to surroundings, Maintained a safe environment, Hourly rounding (assess needs \T\ fall precautionary measures) done. Abuse screen: Denies threats or abuse. Denies injuries from another. Nutritional screening: No deficits noted. Tuberculosis screening: No symptoms or risk factors identified. Assessment: 14:00 General: Pt states that she wants to go home. Pt instructed to call a ride and we would cm10 discharge her.. 14:10 General: pt noted to be smoking in restroom at this time.. cm10 Vital Signs: 13:46 BP 158 / 96; Pulse 86; Resp 17; Temp 97.8(TE); Pulse Ox 100% on R/A; cm10 ED Course: 13:35 Patient arrived in ED. ty 13:36 Melchor Jj MD is Attending Physician. rn 13:41 Leigh Ann Jacinto, ELIANE is Primary Nurse. cm10 13:45 Arm band placed on right wrist. Patient placed in an exam room, on a stretcher. cm10 13:48 Triage completed. ss 14:43 Patient has correct armband on for positive identification. Bed in low position. cm10 Provided Education on: Follow-up instructions. 14:44 No provider procedures requiring assistance completed. Patient did not have IV access cm10 during this emergency room visit. Administered Medications: No medications were administered Medication: 14:43 VIS not applicable for this client. cm10 Outcome: 14:41 Discharge ordered by . rn 14:44 Discharged to home ambulatory, Pt left with [place] PD officer Zuhair barber 14:44 Condition: good 14:44 Discharge instructions given to Pt left prior to receiving paperwork. 14:45 Patient left the ED. cm10 Signatures: Melchor Jj MD MD rn Blanchard, Shelby, RN RN ss Leigh Ann Jacinto RN RN cm10 Abdoulaye Harper ty
--- NOTE | 2024-06-02 14:41 | EDPHYS ---
Physician Documentation [facility] Name: Heaven Bhatia Age: 63 yrs Sex: Female : 1960 Arrival Date: 06/02/2024 Time: 13:31 Bed 20 Private MD: ED Physician Melchor Jj HPI: 06/02 14:35 This 63 yrs old Female presents to ER via Ambulatory with complaints of ETOH Abuse. rn 14:35 Patient reports started drinking again. Patient had recent admission for alcohol rn withdrawal. Reports drinking whiskey today. Denies suicidal ideation. Patient reports ran out of hydrocodone and wants refill. No other acute complaints or changes. No trauma.. Onset: The symptoms/episode began/occurred today. Severity of symptoms: At their worst the symptoms were moderate in the emergency department the symptoms are unchanged. The patient has experienced similar episodes in the past. Historical: - PMHx: 13:38 chronic back pain; COPD; etoh abuse; Hyperlipidemia; Hypertensive disorder; Seizure; ss - PSHx: 13:38 Appendectomy; backsurgery; ss - Immunization history:: Adult Immunizations. - Infectious Disease History:: Denies. - Family history:: not pertinent. - Hospitalizations: : No recent hospitalization is reported. - Social history:: Smoking status: Patient reports the use of cigarette tobacco products, smokes one pack cigarettes per day. ROS: 14:35 Constitutional: Negative for fever, chills, and weight loss, Cardiovascular: Negative rn for chest pain, palpitations Respiratory: Negative for shortness of breath, cough, wheezing, and pleuritic chest pain, Abdomen/GI: Negative for abdominal pain, nausea, vomiting, diarrhea, and constipation, MS/Extremity: Negative for injury and deformity, Neuro: Negative for headache, weakness, numbness, tingling, and seizure, Exam: 14:35 Constitutional: This is a well developed, well nourished patient who is awake, alert, rn and in no acute distress. Ambulatory to room without assistance. Smells of alcohol. Pleasant but uncooperative at the same time Cardiovascular: Regular rate and rhythm. No pulse deficits. Neuro: Awake and alert, GCS 15, oriented to person, place, time, and situation. Cranial nerves II-XII grossly intact. Motor strength 5/5 in all extremities. Sensory grossly intact. Cerebellar exam normal. Normal gait. Vital Signs: 13:46 BP 158 / 96; Pulse 86; Resp 17; Temp 97.8(TE); Pulse Ox 100% on R/A; cm10 MDM: 13:37 Medical Screening Exam initiated rn 14:35 Differential Diagnosis Alcohol intoxication. Data reviewed: vital signs, nurses notes, rn and as a result, I will discharge patient. Counseling: I had a detailed discussion with the patient and/or guardian regarding the historical points, exam findings, and any diagnostic results supporting the discharge/admit diagnosis, the need for outpatient follow up, to return to the emergency department if symptoms worsen or persist or if there are any questions or concerns that arise at home. ED course: Patient did not have a ride and could not discharge her due to alcohol intoxication. Police were called when she decided to smoke in the bathroom in the emergency room. air defense control officer plans on taking her home. Patient is medically cleared, was drinking today, explained to her that we do not refill hydrocodone prescriptions.. 06/02 13:48 Order name: O2 Sat Monitoring; Complete Time: 13:52 rn Administered Medications: No medications were administered Disposition Summary: 06/02/24 14:41 Discharge Ordered Notes: Location: Home rn Problem: an ongoing problem rn Symptoms: have improved rn Condition: Stable rn Diagnosis - Alcohol dependence with intoxication, unspecified rn Followup: rn - With: Private Physician - When: As needed - Reason: Recheck today's complaints, Re-evaluation by your physician Discharge Instructions: - Discharge Summary Sheet rn - Alcohol Intoxication rn Forms: - Medication Reconciliation Form rn - Antibiotic director internal audit - Prescription Opioid Use rn - Patient Portal Instructions rn - Leadership Thank You Letter rn Signatures: Melchor Jj MD MD rn Blanchard, Shelby, RN RN ss Martinez, Clarissa, RN RN cm10
[2024-06-02 17:02] VITALS: BP 158/96; TEMP 97.8; O2SAT 100
== END 2024-06-02 14:45 | disposition home or self-care (01) ==
LOC: ER 13:31
DX: F10.229 Alcohol dependence with intoxication, unspecified (principal)
CPT/HCPCS: 99282

== ENCOUNTER 2024-09-12 05:48 | Inpatient (IN) | payer OTHER ==
[2024-09-12 06:19] LABS: Absolute Basophils 0.1 K/uL (0-0.5); Absolute Eosinophils 0.3 K/uL (0-0.5); Absolute Lymphocytes (CBC) 1.9 K/uL (0.7-4.9); Absolute Monocytes 0.6 K/uL (0.1-1.3); Absolute Neutrophil 6.5 K/uL (1.8-8.0); Eosinophils % 3.4 % (0-4.4); Hematocrit 41.1 % (36.0-45.0); Hemoglobin 14.2 g/dL (12.0-15.0); Lymphocytes % 20.2 % (15.3-44.8); MCH 31.1 pg (27.0-35.0); MCHC 34.6 g/dL (32.0-36.0); MPV 7.4 fL (7.6-11.3); Neutrophils % 69.4 % (41.7-73.7); Platelets 276 thou/uL (152-406); RBC Red Blood Cell Count 4.57 M/uL (3.86-4.86); Red Cell Distribution Width 15.5 % (12.1-15.2)
[2024-09-12 06:24] LABS: Specific Gravity 1.011 (1.005-1.030); Sqamous Epithelial <5 /HPF (None Seen); Urine Bacteria None Seen /HPF (<20); Urine Bilirubin NEGATIVE (Negative); Urine Blood Negative (Negative); Urine Clarity Clear (Clear); Urine Color Light-Yellow (Yellow); Urine Culture Reflex Order NOT NEEDED; Urine Glucose NEGATIVE (Negative); Urine Ketones 1+ (Negative); Urine Micro Reflex YN NO BILL MICROSCOPIC; Urine Nitrite NEGATIVE (Negative); Urine Protein TRACE (Negative); Urine RBC None Seen /HPF (None Seen); Urine Urobilinogen Normal (Normal); Urine WBC <5 /HPF (<5)
[2024-09-12 06:48] LABS: Anion Gap 10.1 mEq/L (5.0-15.0); Potassium 3.1 mEq/L (3.5-5.1); Troponin High Sensitivity 34.6 pg/mL (<58.9)
[2024-09-12] MEDS ORDERED: FUROSEMIDE 40 MG/4 ML VIAL ONE (06:57)
--- NOTE | 2024-09-12 06:57 | ER ---
Nurse's Notes [facility] Name: Heaven Bhatia Age: 63 yrs Sex: Female : 1960 Arrival Date: 09/12/2024 Time: 05:48 Bed 6 Private MD: Diagnosis: CHF exacerbation Presentation: 09/12 05:49 Chief complaint: EMS states: TONED OUT FOR INCONTINENCE OF BLADDER FOR 3 DAYS. UPON dd2 ARRIVAL, PT C/O SHORTNESS OF BREATH. Coronavirus screen: At this time, the client does not indicate any symptoms associated with coronavirus-19. Ebola Screen: No symptoms or risks identified at this time. Initial Sepsis Screen: Does the patient meet any 2 criteria? No. Patient's initial sepsis screen is negative. Does the patient have a suspected source of infection? No. Patient's initial sepsis screen is negative. Risk Assessment: Do you want to hurt yourself or someone else? Patient reports no desire to harm self or others. Onset of symptoms was September 09, 2024. 05:49 Method Of Arrival: EMS: [facility] dd2 05:49 Acuity: MARILYNN 3 dd2 Triage Assessment: 05:51 General: Appears in no apparent distress. Behavior is calm, cooperative, appropriate dd2 for age. Pain: Denies pain. EENT: No deficits noted. No signs and/or symptoms were reported regarding the EENT system. Neuro: No deficits noted. Matos Agitation-Sedation Scale (RASS): 0 - Alert and Calm Level of Consciousness is awake, alert, obeys commands, Oriented to person, place, time, situation, Appropriate for age. Cardiovascular: Patient's skin is warm and dry. Respiratory: Reports shortness of breath at rest on exertion Airway is patent Respiratory effort is even, labored, Respiratory pattern is regular, symmetrical, Breath sounds with rhonchi bilaterally. Onset: The symptoms/episode began/occurred at an unknown time. the patient has mild shortness of breath. GI: No deficits noted. No signs and/or symptoms were reported involving the gastrointestinal system. : Reports incontinence, since 09/09/2024 urinary frequency. Derm: No deficits noted. No signs and/or symptoms reported regarding the dermatologic system. Musculoskeletal: Circulation, motion, and sensation intact. Range of motion: intact in all extremities. Historical: - Allergies: 05:51 No Known Allergies; dd2 - PMHx: 05:51 chronic back pain; COPD; etoh abuse; Hyperlipidemia; Hypertensive disorder; Seizure; dd2 - PSHx: 05:51 Appendectomy; backsurgery; dd2 - Immunization history:: Adult Immunizations unknown. - Infectious Disease History:: Denies. - Social history:: Smoking status: Patient reports the use of cigarette tobacco products, denies chronic smoking, but will smoke occasionally. Screenin:56 [facility] ED Fall Risk Assessment (Adult) History of falling in the last 3 months, dd2 including since admission Yes- single mechanical fall (1 pt) Confusion or Disorientation No (0 pts) Intoxicated or Sedated No (0 pts) Impaired Gait No (0 pts) Mobility Assist Device Used No (0 pt) Altered Elimination Yes (1 pt) Score/Fall Risk Level 0 - 2 = Low Risk Oriented to surroundings, Maintained a safe environment, Educated pt \T\ family on fall prevention, incl call for assistance when getting out of bed, Assessed \T\ reinforced patient's understanding of fall precautions, Provided non-skid footwear, Hourly rounding (assess needs \T\ fall precautionary measures) done. Abuse screen: Denies threats or abuse. Denies injuries from another. Nutritional screening: No deficits noted. Tuberculosis screening: No symptoms or risk factors identified. Assessment: 05:56 Reassessment: SEE TRIAGE ASSESSMENT FOR FULL ASSESSMENT. dd2 07:06 Reassessment: placed female [facility]. bm8 Vital Signs: 05:49 Weight 76.84 kg; dd2 06:02 BP 145 / 106; Pulse 106; Resp 20; Temp 98.4; Pulse Ox 98% on 3 lpm NC; dd2 Lawrence Coma Score: 05:56 Eye Response: spontaneous(4). Motor Response: obeys commands(6). Verbal Response: dd2 oriented(5). Total: 15. ED Course: 05:48 Patient arrived in ED. jj6 05:51 Neida Tamez MD is Attending Physician. sp3 05:51 Triage completed. dd2 05:51 Arm band placed on right wrist. dd2 05:56 Patient has correct armband on for positive identification. Bed in low position. Call dd2 light in reach. Side rails up X2. Client placed on continuous cardiac and pulse oximetry monitoring. NIBP monitoring applied. Door closed. Noise minimized. Warm blanket given. Pillow given. Verbal reassurance given. 05:56 No provider procedures requiring assistance completed. Oxygen administration via nasal dd2 cannula \T\ 2L/min. 06:29 Lupillo Mcdaniel, RN is Primary Nurse. bm8 06:34 XRAY Chest (1 view) In Process Unspecified. EDMS 06:56 Shagufta Johnson MD is Hospitalizing Provider. sp3 07:03 EKG done, by ED staff, reviewed by Neida Tamez MD. oe 07:22 Primary Nurse role handed off by Lupillo Mcdaniel RN eb 08:00 Inserted saline lock: 20 gauge in right antecubital area, using aseptic technique. ld1 Blood collected. Flushed with 10 mL NS. 08:43 Patient admitted, IV remains in place. ld1 09:59 Soledad Mays RN is Primary Nurse. ld1 Administered Medications: 07:05 Drug: Furosemide IVP 40 mg IVP once; give over 2 minutes Route: IVP; Site: right bm8 antecubital; 07:45 Follow up: Response: No adverse reaction ld1 Medication: 05:56 VIS not applicable for this client. dd2 Outcome: 06:57 Decision to Hospitalize by Provider. sp3 08:43 Admitted to ER Hold. Please see [facility] for further documentation. ld1 08:43 Condition: unchanged 08:43 Instructed on the need for admit, 15:06 Patient left the ED. ld1 Signatures: Dispatcher [employer] EDOK Leander Zayas Mya Robledo Soledad Mays, RN RN ld1 Neida Tamez MD MD sp3 Mira Wells j6 Lupillo Mcdaniel RN RN bm8 DASHAWN RATLIFF RN RN dd2 Corrections: (The following items were deleted from the chart) 05:56 05:49 Chief complaint: EMS states: TONED OUT FOR INCONTINENCE OF BLADDER FOR 3 DAYS. dd2dd2
--- NOTE | 2024-09-12 06:57 | EDPHYS ---
Physician Documentation [facility] Name: Heaven Bhatia Age: 63 yrs Sex: Female : 1960 Arrival Date: 09/12/2024 Time: 05:48 Bed 6 Private MD: ED Physician Neida Tamez HPI: 09/12 06:04 This 63 yrs old Female presents to ER via EMS with complaints of Shortness Of Breath, sp3 Urinary Incontinence. 06:04 63-year-old female with a history of COPD, alcohol abuse, hypertension, seizure, sp3 chronic back pain, presents to the ED via EMS from local [facility] for nylon activation by self for chief complaint urinary incontinence for 3 days and worsening shortness of breath. Patient states that she has "been pressing all over herself" for 3 days and her shortness of breath has also been slightly increasing coupled with a cough. She denies any fever, production on cough, chest pain, back pain, abdominal pain, nausea, vomiting, diarrhea, rash, bleeding, or any other signs or symptoms on ROS at this time. She denies any recent alcohol or drug use.. Historical: - Allergies: 05:51 No Known Allergies; dd2 - PMHx: 05:51 chronic back pain; COPD; etoh abuse; Hyperlipidemia; Hypertensive disorder; Seizure; dd2 - PSHx: 05:51 Appendectomy; backsurgery; dd2 - Immunization history:: Adult Immunizations unknown. - Infectious Disease History:: Denies. - Social history:: Smoking status: Patient reports the use of cigarette tobacco products, denies chronic smoking, but will smoke occasionally. ROS: 06:05 Constitutional: Negative for fever, chills, and weight loss, Eyes: Negative for injury, sp3 pain, redness, and discharge, ENT: Negative for injury, pain, and discharge, Neck: Negative for injury, pain, and swelling, Cardiovascular: Negative for chest pain, palpitations, and edema, Abdomen/GI: Negative for abdominal pain, nausea, vomiting, diarrhea, and constipation, Back: Negative for injury and pain, MS/Extremity: Negative for injury and deformity, Skin: Negative for injury, rash, and discoloration, Neuro: Negative for headache, weakness, numbness, tingling, and seizure, Psych: Negative for depression, anxiety, suicide ideation, homicidal ideation, and hallucinations, Allergy/Immunology: Negative for hives, rash, and allergies, Endocrine: Negative for neck swelling, polydipsia, polyuria, polyphagia, and marked weight changes, 06:05 All other systems are negative, Exam: 06:06 Constitutional: This is a well developed, well nourished patient who is awake, alert, sp3 and in no acute distress. Head/Face: Normocephalic, atraumatic. Neck: Trachea midline, no thyromegaly or masses palpated, and no cervical lymphadenopathy. Supple, full range of motion without nuchal rigidity, or vertebral point tenderness. No Meningismus. Chest/axilla: Normal chest wall appearance and motion. Nontender with no deformity. No lesions are appreciated. Cardiovascular: Regular rate and rhythm with a normal S1 and S2. No gallops, murmurs, or rubs. Normal PMI, no JVD. No pulse deficits. Abdomen/GI: Soft, non-tender, with normal bowel sounds. No distension or tympany. No guarding or rebound. No evidence of tenderness throughout. Back: No spinal tenderness. No costovertebral tenderness. Full range of motion. Skin: Warm, dry with normal turgor. Normal color with no rashes, no lesions, and no evidence of cellulitis. MS/ Extremity: Pulses equal, no cyanosis. Neurovascular intact. Full, normal range of motion. Neuro: Awake and alert, GCS 15, oriented to person, place, time, and situation. Cranial nerves II-XII grossly intact. Motor strength 5/5 in all extremities. Sensory grossly intact. Cerebellar exam normal. Normal gait. 06:06 Constitutional: The patient appears Disheveled and foul-smelling. 06:06 Respiratory: Coarse breath sounds bilaterally with scattered wheeze., 06:06 : Patient incontinent and smells of urine. She was able to give us a sample., 06:54 ECG was reviewed by the Attending Physician. EKG demonstrates left bundle branch block sp3 97 bpm with no concordance. Vital Signs: 05:49 Weight 76.84 kg; dd2 06:02 BP 145 / 106; Pulse 106; Resp 20; Temp 98.4; Pulse Ox 98% on 3 lpm NC; dd2 Lanie Coma Score: 05:56 Eye Response: spontaneous(4). Motor Response: obeys commands(6). Verbal Response: dd2 oriented(5). Total: 15. MDM: 05:52 Medical Screening Exam initiated sp3 06:07 Data reviewed: vital signs, nurses notes, EMS record, old medical records, lab test sp3 result(s), radiologic studies. ED course: 63-year-old female with PMH above now with urinary incontinence and shortness of breath. From a urinary incontinence standpoint, differential diagnosis includes UTI/pyelonephritis spectrum vs. functional incontinence. From a shortness of breath standpoint, differential includes COPD exacerbation, CHF, bronchitis, pneumonia. Full workup will include EKG, chest x-ray, general labs including BNP and troponin, urine analysis. Disposition pending workup and patient course with probable discharge pending any pharmacological interventions.. 09/12 05:52 Order name: Basic Metabolic Panel; Complete Time: 06:50 sp3 09/12 05:52 Order name: CBC with Diff; Complete Time: 06:50 sp3 09/12 05:52 Order name: NT PRO-BNP; Complete Time: 06:50 sp3 09/12 05:52 Order name: Troponin HS; Complete Time: 06:50 sp3 09/12 05:52 Order name: UAM; Complete Time: 06:50 sp3 09/12 07:44 Order name: Comprehensive Metabolic Panel [facility] 09/12 07:44 Order name: Lipid Profile [facility] 09/12 07:44 Order name: Lipid Profile [facility] 09/12 07:44 Order name: Troponin High Sensitivity [facility] 09/12 07:44 Order name: Troponin High Sensitivity [facility] 09/12 07:44 Order name: Troponin High Sensitivity [facility] 09/12 07:44 Order name: Troponin High Sensitivity [facility] 09/12 07:44 Order name: Troponin High Sensitivity [facility] 09/12 08:41 Order name: Glucose, Ancillary Testing [facility] 09/12 05:52 Order name: XRAY Chest (1 view); Complete Time: 07:00 sp3 09/12 07:44 Order name: Echo with Doppler [facility] 09/12 07:44 Order name: CONS Physician Consult [facility]AL 09/12 05:52 Order name: Cardiac monitoring; Complete Time: 06:29 sp3 09/12 05:52 Order name: EKG - Nurse/Tech; Complete Time: 06:29 sp3 09/12 05:52 Order name: IV Saline Lock; Complete Time: 06:29 sp3 09/12 05:52 Order name: Labs collected and sent; Complete Time: 06:29 sp3 09/12 05:52 Order name: O2 Per Protocol; Complete Time: 06:29 sp3 09/12 05:52 Order name: O2 Sat Monitoring; Complete Time: 06:29 sp3 Administered Medications: 07:05 Drug: Furosemide IVP 40 mg IVP once; give over 2 minutes Route: IVP; Site: right bm8 antecubital; 07:45 Follow up: Response: No adverse reaction ld1 Disposition Summary: 09/12/24 06:57 Hospitalization Ordered Notes: Hospitalization Status: Observation sp3 Provider: Shagufta Johnson sp3 Condition: Stable sp3 Problem: an acute exacerbation sp3 Symptoms: have worsened sp3 Bed/Room Type: Standard sp3 Location: Telemetry/MedSurg (observation)(09/12/24 14:23) eb Room Assignment: Replaced by [facility](09/12/24 14:23) eb Diagnosis - CHF exacerbation sp3 Forms: - Medication Reconciliation Form sp3 - SBAR form sp3 - Leadership Thank You Letter sp3 Signatures: Dispatcher [employer] EDMS Mya Robledo Setul, MD MD sp3 Lupillo Mcdaniel RN RN bm8 DASHAWN RATLIFF RN RN dd2 Soledad Mays RN ld1 Corrections: (The following items were deleted from the chart) 05:52 05:52 BASIC METABOLIC PANEL+C.LAB.BRZ ordered. EDMS EDMS 05:52 05:52 CBC+H.LAB.BRZ ordered. EDMS EDMS 05:52 05:52 PROBNP+C.LAB.BRZ ordered. EDMS EDMS 05:52 05:52 Troponin High Sensitivity+C.LAB.BRZ ordered. EDMS EDMS 05:52 05:52 Urinalysis W/Microscopic+U.LAB.BRZ ordered. EDMS EDMS 05:52 05:52 Chest Single View+RAD.RAD.BRZ ordered. EDMS EDMS 12:59 06:57 Telemetry/MedSurg (observation) sp3 eb 12:59 06:57 sp3 eb 14:23 12:59 [facility] ER HOLD eb eb 14:23 12:59 ERHOLD- eb eb
--- NOTE | 2024-09-12 06:59 | RAD REPORT ---
EXAMINATION: ONE VIEW CHEST XR CLINICAL INDICATION: Female, 63 years old.,DYSPNEA TECHNIQUE: Frontal chest projection is submitted. Examination is limited by patient positioning and t echnique. COMPARISON: 05/26/2024 FINDINGS: The lungs are well inflated and clear apart from stable bibasilar atelectatic changes with blunting o f the costophrenic angles more so on the left. Hazy right basilar opacity has since improved. No pneumothorax or sizable effusion. The heart is normal in size. Mediastinal contours are unremarkable. IMPRESSION: No acute intrathoracic abnormalities. Stable findings as above.
[2024-09-12] MEDS ORDERED: ONDANSETRON 4 MG/2 ML VIAL IV PRN (07:36)
[2024-09-12] MEDS ORDERED: ACETAMINOPHEN 500 MG TAB PO PRN (07:36)
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
[2024-09-12] MEDS: KCL 20 MEQ/100 mL IVPB 100 ML IV SCH (08:00)
[2024-09-12] MEDS ORDERED: KETOROLAC 30 MG/ML INJ ONE (08:29)
[2024-09-12] MEDS: KETOROLAC 30 MG/ML INJ IV ONE (08:37)
[2024-09-12] MEDS ORDERED: KCL 20 MEQ/100 mL IVPB 100 ML IV ONE ×2 (09:07→12:39)
[2024-09-12 09:34] LABS: Albumin 3.4 g/dL (3.4-5.0); Albumin/Globulin Ratio 0.8 (1.1-1.8); Anion Gap 8.5 mEq/L (5.0-15.0); Globulin 4.1 g/dL (2.3-3.5); Potassium 3.5 mEq/L (3.5-5.1); Protein, Total 7.5 g/dL (6.4-8.2)
[2024-09-12] MEDS ORDERED: NA CHLORIDE 0.9% 1,000 ML ONE (09:50)
--- NOTE | 2024-09-12 12:13 | ECHO ---
HEIGHT: 5 ft 3 in WEIGHT: 169 lb 12.095 oz DATE OF STUDY: 09/12/[address]: Shagufta Johnson MD 2-DIMENSIONAL: YES M.MODE: YES DOPPLER: YES COLOR FLOW: YES TDS: PORTABLE: YES DEFINITY: BUBBLE STUDY: DIAGNOSIS: NEW ONSET HEART FAILURE CARDIAC HISTORY: CATHERIZATION: SURGERY: PROSTHETIC VALVE: PACEMAKER: MEASUREMENTS (cm) DIASTOLIC (NORMALS) SYSTOLIC (NORMALS) IVSd 1.2 (0.6-1.2) LA Diam 4.1 (1.9-4.0) LVEF 50-55% LVIDd 3.8 (3.5-5.7) LVIDs 3.0 (2.0-3.5) %FS 22% LVPWd 1.3 (0.6-1.2) Ao Diam 2.6 (2.0-3.7) 2 DIMENSIONAL ASSESSMENT: RIGHT ATRIUM: NORMAL LEFT ATRIUM: NORMAL RIGHT VENTRICLE: NORMAL LEFT VENTRICLE: NORMAL TRICUSPID VALVE: TRACE TRICUSPID REGURGITATION MITRAL VALVE: MILD MITRAL ANNULAR CALCIFICATION PULMONIC VALVE: NORMAL AORTIC VALVE: CALCIFIED, CANNOT RULE OUT BICUSPID PERICARDIAL EFFUSION: NONE AORTIC ROOT: NORMAL LEFT VENTRICULAR WALL MOTION: NORMAL DOPPLER/COLOR FLOW: GRADE I DIASTOLIC DYSFUNCTION COMMENTS: 1. NORMAL LEFT VENTRICULAR SYSTOLIC FUNCTION, EJECTION FRACTION 50-55%, NORMAL WALL MOTION 2. GRADE I DIASTOLIC DYSFUNCTION 3. NORMAL FILLING PRESSURE (RIGHT ATRIAL PRESSURE 0-5 mmHg) TECHNOLOGIST: JOSE MARTIN JAIMES
--- NOTE | 2024-09-12 14:04 | P.CNS ---
Date of Consult: 09/12/24 Chief Complaint: CHF History of Present Illness: Patient with PMH of HTN, she has not been complaint with her medications or medical care, presented with back pain, bilateral leg pain, denies chest pain, no SOB, no palpitations, no syncope. Allergies No Known Drug Allergies Allergy (Verified 05/26/24 07:38) Unknown Home medications list reviewed: Yes Home Medications: Azithromycin Tab [Zithromax*] 250 mg PO ZPAK #1 flako 05/27/24 Azithromycin Tab [Zithromax*] 250 mg PO ZPAK #1 flako 05/27/24 Hydrocodone 10/APAP 325 [[place] 10/325] 1 tab PO Q12H PRN #20 tab 05/27/24 Hydrocodone 10/APAP 325 [[place] 10/325] 1 tab PO Q12H PRN #20 tab 05/27/24 chlordiazePOXIDE HCl [Chlordiazepoxide HCl] 10 mg PO TID #30 cap 05/27/24 chlordiazePOXIDE HCl [Chlordiazepoxide HCl] 10 mg PO TID #30 cap 05/27/24 predniSONE [Deltasone] 20 mg PO BID #11 tab 05/27/24 predniSONE [Deltasone] 20 mg PO BID #11 tab 05/27/24 - Past Medical/Surgical History Diabetic: No -: Hypertension -: Dyslipidemia -: Seizure -: Chronic low back pain -: COPD -: Appendectomy -: Tonsillectomy -: Abdominal surgery -: Morphine pump placement Psychosocial/ Personal History: Patient lives at home with family. - Family History Mother Medical History: Diabetes Father Medical History: Cancer - Social History Smoking Status: Current every day smoker Alcohol use: Yes CD- Drugs: No Caffeine use: Yes Review of Systems 10-point ROS is otherwise unremarkable Physical Examination Temp Pulse Resp BP Pulse Ox 88 18 118/87 95 09/12/24 12:00 09/12/24 12:00 09/12/24 12:00 09/12/24 12:00 General: Alert, In no apparent distress HEENT: Atraumatic, PERRLA, Mucous membr. moist/pink, EOMI, Sclerae nonicteric Neck: Supple, 2+ carotid pulse no bruit, No LAD, Without JVD or thyroid abnormality Respiratory: Clear to auscultation bilaterally, Normal air movement Cardiovascular: Regular rate/rhythm, Normal S1 S2 Gastrointestinal: Normal bowel sounds, No tenderness Musculoskeletal: No tenderness Integumentary: No rashes Neurological: Normal gait, Normal speech, Normal tone, Normal affect Lymphatics: No axilla or inguinal lymphadenopathy Laboratory Data (last 24 hrs) 09/12/24 09/12/24 06:10 06:10 WBC 9.40 Hgb 14.2 Hct 41.1 Plt Count 276 Sodium 134 L Potassium 3.1 L BUN 9 Creatinine 0.77 Glucose 109 H - Problems (1) Acute on chronic diastolic (congestive) heart failure Current Visit: Yes Status: Acute Plan: patient BNP is elevated, Echo shows normal EF, DD. recommend Lasix 40 mg IV bid while inpatient, may switch to lasix 40 mg po daily for 1 week on discharge then continue 20 mg daily add Aldactone 25 mg daily monitor input and output and electrolytes outpatient follow up with cardiology
--- NOTE | 2024-09-12 14:13 | EKG ---
Test Date: 2024-09-12 Test Time: 06:34:18 Mold Engraver: JULIA MEASUREMENT RESULTS: Intervals: Rate: 97 RI: 126 QRSD: 138 QT: 426 QTc: 541 [place]: P: 57 RI: 126 QRS: 61 T: 81 INTERPRETIVE STATEMENTS: Normal sinus rhythm Left bundle branch block Abnormal ECG Compared to ECG 05/26/2024 03:25:58 Left-axis deviation no longer present Electronically Signed On 09-12-24 14:12:22 CDT by Nicolás Carter
[2024-09-12] MEDS: chlordiazePOXIDE HCl 5 MG CAP PO SCH (16:30)
[2024-09-12] MEDS: ENOXAPARIN 40 MG/0.4 ML SQ SCH (17:22)
[2024-09-12] MEDS: FUROSEMIDE 20 MG/ 2ML VIAL IV SCH (17:22)
[2024-09-12] MEDS: HYDROCODONE/APAP 5/325 MG TAB PO PRN (17:27)
[2024-09-12] MEDS: IPRATROPIUM BROM 0.5MG/2.5ML NEB SCH (20:35)
[2024-09-12] MEDS: LEVALBUTEROL 0.63 MG/3 ML NEB NEB SCH (20:35)
[2024-09-12] MEDS ORDERED: CHLORDIAZEPOXIDE HCL 10 MG PO SCH (21:00)
[2024-09-13 05:53] LABS: Albumin/Globulin Ratio 0.9 (1.1-1.8); Anion Gap 10.6 mEq/L (5.0-15.0); Bilirubin Total 0.7 mg/dL (0.2-1.0); Globulin 3.5 g/dL (2.3-3.5); Potassium 3.6 mEq/L (3.5-5.1); Protein, Total 6.5 g/dL (6.4-8.2)
[2024-09-13] MEDS: ARFORMOTEROL TARTRATE 15 MCG/2 ML VIAL.NEB NEB SCH (11:57)
[2024-09-13] MEDS: THIAMINE HCL 100 MG TABLET PO SCH (11:59)
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
[2024-09-13] MEDS: MULTIVITAMIN TAB PO SCH (12:25)
[2024-09-13] MEDS: predniSONE 20 MG TAB PO SCH (12:25)
[2024-09-13] MEDS: MIRTAZAPINE 15 MG TAB PO SCH (20:43)
[2024-09-13] MEDS: SPIRONOLACTONE 25 MG TABLET PO SCH (20:45)
[2024-09-14 10:01] VITALS: BMI 30.4
--- NOTE | 2024-09-14 10:46 | P.PN ---
Subjective Date of Service: 09/14/24 Chief Complaint: COPD exacerbation Patient is doing much better breathing is improving no new complaints Review of Systems General: Weakness Respiratory: Shortness of Breath Physical Examination - Vital Signs Temperature: 97.9 F Blood Pressure: 130/83 Pulse: 72 Respirations: 16 Pulse Ox (%): 96 - Physical Exam General: Alert, Oriented x3 Respiratory: Clear to auscultation bilaterally, Diminished Cardiovascular: No edema, Normal S1 S2 Assessment And Plan - Current Problems (Diagnosis) (1) COPD with acute exacerbation Current Visit: No Status: Acute Plan: Patient admitted with COPD exacerbation was recently incarcerated due to DUI she lost all her medications has no coronary apartment all her medications will need to be resumed faxed to the pharmacy except nebulizers probably has underlying significant depression since her mirtazapine also sent also complains of insomnia labs chemistries reviewed possible discharge tomorrow as patient is currently homeless (2) Alcohol abuse Current Visit: No Status: Acute Plan: Alcohol abuse will plan to continue with thiamine patient has not been drinking recently multiple DUI offenses
[2024-09-14 21:37] VITALS: O2SAT 93
[2024-09-15 04:54] LABS: Anion Gap 7.6 mEq/L (5.0-15.0); Magnesium 2.3 mg/dL (1.6-2.4); Potassium 4.6 mEq/L (3.5-5.1)
[2024-09-15] MEDS: FUROSEMIDE 40 MG/4 ML VIAL IV SCH (09:21)
--- NOTE | 2024-09-15 09:24 | P.PN ---
Subjective Date of Service: 09/15/24 Chief Complaint: COPD exacerbation Subjective: No new changes, No C/O voiced, Tolerating diet, Ambulating, Improving Review of Systems 10-point ROS is otherwise unremarkable Physical Examination - Vital Signs Temperature: 98.3 F Blood Pressure: 171/91 Pulse: 77 Respirations: 18 Pulse Ox (%): 98 - Physical Exam General: Alert, In no apparent distress HEENT: Atraumatic, PERRLA, EOMI Neck: Supple, JVD not distended Respiratory: Clear to auscultation bilaterally, Normal air movement Cardiovascular: Regular rate/rhythm, Normal S1 S2 Gastrointestinal: Normal bowel sounds, No tenderness Musculoskeletal: No tenderness Integumentary: No rashes Neurological: Normal speech, Normal tone, Normal affect Lymphatics: No axilla or inguinal lymphadenopathy - Studies Medications List Reviewed: Yes Assessment And Plan - Current Problems (Diagnosis) (1) Acute on chronic diastolic (congestive) heart failure Current Visit: Yes Status: Acute Plan: patient BNP is elevated, Echo shows normal EF, DD. recommend Lasix 40 mg IV bid while inpatient, may switch to lasix 40 mg po daily for 1 week on discharge then continue 20 mg daily continue Aldactone 25 mg daily add losartan 25 mg daily add Coreg 6.25 mg po BID monitor input and output and electrolytes outpatient follow up with cardiology
[2024-09-15 12:36] VITALS: BP 141/84; TEMP 98
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
== END 2024-09-15 16:26 | disposition home or self-care (01) | DRG 291 ==
LOC: SUATTDRO 05:48 → ER 05:48 → ERHOLD 07:36 → 2ND 14:25
PROVIDERS: ADMIT Family Medicine; ATTEND Hospitalist
DX: I11.0 Hypertensive heart disease with heart failure (principal); I50.33 Acute on chronic diastolic (congestive) heart failure; J44.1 Chronic obstructive pulmonary disease with (acute) exacerbation; E78.5 Hyperlipidemia, unspecified; G89.4 Chronic pain syndrome; G47.00 Insomnia, unspecified; F10.10 Alcohol abuse, uncomplicated; F17.210 Nicotine dependence, cigarettes, uncomplicated; Z79.52 Long term (current) use of systemic steroids; Z79.899 Other long term (current) drug therapy; Z91.148 Patient's other noncompliance with medication regimen for other reason
CPT/HCPCS: 36415; 71045; 80048; 80053; 80061; 81001; 82947; 83735; 83880; 84484; 85025; 93005; 93306; 94640; 96374; 99285; J1650; J1938; J3480; J7030; J7512; J7605; J7614; J7644

== ENCOUNTER 2024-10-02 23:04 | Emergency (ER) | payer OTHER ==
[2024-10-02] MEDS ORDERED: NITROGLYCERIN 0.4 MG/TAB SL ONE (23:34)
[2024-10-02 23:57] LABS: Absolute Basophils 0.1 K/uL (0-0.5); Absolute Eosinophils 0.3 K/uL (0-0.5); Absolute Lymphocytes (CBC) 1.2 K/uL (0.7-4.9); Absolute Monocytes 0.7 K/uL (0.1-1.3); Absolute Neutrophil 3.6 K/uL (1.8-8.0); Basophils % 0.9 % (0-1.3); Eosinophils % 5.2 % (0-4.4); Hematocrit 38.8 % (36.0-45.0); Hemoglobin 13.1 g/dL (12.0-15.0); Lymphocytes % 21.2 % (15.3-44.8); MCH 30.7 pg (27.0-35.0); MCHC 33.9 g/dL (32.0-36.0); MCV 90.8 fL (80-100); MPV 8.2 fL (7.6-11.3); Monocytes % 12.5 % (3.3-12.3); Neutrophils % 60.2 % (41.7-73.7); Nucleated Red Blood Cells % 0.2 % (0-0); Platelets 230 thou/uL (152-406); RBC Red Blood Cell Count 4.27 M/uL (3.86-4.86); Red Cell Distribution Width 15.2 % (12.1-15.2)
[2024-10-03 00:12] LABS: ALT/SGPT 16 U/L (13-56); AST/SGOT 14 U/L (15-37); Albumin 3.3 g/dL (3.4-5.0); Albumin/Globulin Ratio 0.8 (1.1-1.8); Alkaline Phosphatase 89 U/L (45-117); Anion Gap 9.2 mEq/L (5.0-15.0); BUN Blood Urea Nitrogen 13 mg/dL (7-18); Bicarbonate 28 mEq/L (21-32); Bilirubin Total 0.4 mg/dL (0.2-1.0); Globulin 4.1 g/dL (2.3-3.5); Glomerular Filtration Rate 64 ml/min (=/>90); Glucose Level 94 mg/dL (74-106); Magnesium 2.3 mg/dL (1.6-2.4); NT PRO-BNP 1338 pg/mL (<125); Potassium 3.2 mEq/L (3.5-5.1); Protein, Total 7.4 g/dL (6.4-8.2); Sodium Level 142 mEq/L (136-145); Troponin High Sensitivity 25.6 pg/mL (<58.9)
[2024-10-03 00:21] LABS: Bilirubin Direct < 0.2 mg/dL (0-0.2); Bilirubin Indirect, Calculated 0.2 mg/dL (0.2-0.8)
--- NOTE | 2024-10-03 00:24 | EDPHYS ---
Physician Documentation [facility] Name: Heaven Bhatia Age: 63 yrs Sex: Female : 1960 Arrival Date: 10/02/2024 Time: 23:04 Bed 3 Private MD: ED Physician Neida Tamez HPI: 10/02 23:22 This 63 yrs old Female presents to ER via EMS with complaints of High Blood Pressure, sp3 SOB. 23:22 63-year-old female with a history of COPD, alcohol abuse, hypertension, seizure, sp3 chronic back pain, presents to the ED via EMS for shortness of breath and high blood pressure. Patient states she is "on a water pill". And she also states she has been alcohol free for the last 24 days. She states that her physician at the "clinic" has been adjusting her blood pressure medications. She has been admitted in the past for congestive heart failure. She denies any chest pain, back pain, abdominal pain, headache, or any other anginal equivalents or any other signs or symptoms on ROS at this time.. Historical: - Allergies: 23:08 No Known Allergies; bm8 - Home Meds: 23:08 Lasix Oral [Active]; albuterol sulfate 2.5 mg /3 mL (0.083 %) Inhl Solution for bm8 Nebulization [Active]; mirtazapine Oral [Active]; prednisone Oral [Active]; fluticasone propionate intranasal [Active]; - PMHx: 23:08 chronic back pain; COPD; etoh abuse; Hyperlipidemia; Hypertensive disorder; Seizure; bm8 - PSHx: 23:08 Appendectomy; backsurgery; bm8 - Immunization history:: Adult Immunizations up to date. - Infectious Disease History:: Denies. - Social history:: Smoking status: Patient/guardian denies using tobacco, Stopped _ months ago 6. ROS: 23:24 Constitutional: Negative for fever, chills, and weight loss, Eyes: Negative for injury, sp3 pain, redness, and discharge, Neck: Negative for injury, pain, and swelling, Abdomen/GI: Negative for abdominal pain, nausea, vomiting, diarrhea, and constipation, Back: Negative for injury and pain, MS/Extremity: Negative for injury and deformity, Skin: Negative for injury, rash, and discoloration, Neuro: Negative for headache, weakness, numbness, tingling, and seizure, Psych: Negative for depression, anxiety, suicide ideation, homicidal ideation, and hallucinations, Allergy/Immunology: Negative for hives, rash, and allergies, Endocrine: Negative for neck swelling, polydipsia, polyuria, polyphagia, and marked weight changes, Hematologic/Lymphatic: Negative for swollen nodes, abnormal bleeding, and unusual bruising, 23:24 All other systems are negative, Exam: 23:25 Constitutional: This is a well developed, well nourished patient who is awake, alert, sp3 and in no acute distress. Head/Face: Normocephalic, atraumatic. Eyes: Pupils equal round and reactive to light, extra-ocular motions intact. Lids and lashes normal. Conjunctiva and sclera are non-icteric and not injected. Cornea within normal limits. Periorbital areas with no swelling, redness, or edema. Neck: Trachea midline, no thyromegaly or masses palpated, and no cervical lymphadenopathy. Supple, full range of motion without nuchal rigidity, or vertebral point tenderness. No Meningismus. Chest/axilla: Normal chest wall appearance and motion. Nontender with no deformity. No lesions are appreciated. Cardiovascular: Regular rate and rhythm with a normal S1 and S2. No gallops, murmurs, or rubs. Normal PMI, no JVD. No pulse deficits. Abdomen/GI: Soft, non-tender, with normal bowel sounds. No distension or tympany. No guarding or rebound. No evidence of tenderness throughout. Back: No spinal tenderness. No costovertebral tenderness. Full range of motion. Skin: Warm, dry with normal turgor. Normal color with no rashes, no lesions, and no evidence of cellulitis. MS/ Extremity: Pulses equal, no cyanosis. Neurovascular intact. Full, normal range of motion. Neuro: Awake and alert, GCS 15, oriented to person, place, time, and situation. Cranial nerves II-XII grossly intact. Motor strength 5/5 in all extremities. Sensory grossly intact. Cerebellar exam normal. Normal gait. Psych: Awake, alert, with orientation to person, place and time. Behavior, mood, and affect are within normal limits. 23:25 Respiratory: Mild Rales noted., Vital Signs: 23:06 BP 231 / 118; Pulse 82; Resp 20; Temp 97.5; Pulse Ox 94% ; Weight 73.48 kg; Height 5 bm8 ft. 2 in. ; Pain 0/10; 23:42 BP 173 / 83; Pulse 68; Resp 18; Temp 97.5; Pulse Ox 88% on R/A; Pain 0/10; bm8 10/03 00:14 BP 170 / 96; Pulse 57; Resp 18; Pulse Ox 99% on 2 lpm NC; dd2 00:56 BP 165 / 96; Pulse 77; Resp 18; Temp 97.5; Pulse Ox 95% ; Pain 0/10; bm8 10/02 23:06 Body Mass Index 29.63 (73.48 kg, 157.48 cm) 8 10/02 23:06 Pain Scale: Adult bm8 23:42 Pain Scale: Adult bm8 00:56 Pain Scale: Adult bm8 Lanie Coma Score: 10/02 23:42 Eye Response: spontaneous(4). Motor Response: obeys commands(6). Verbal Response: bm8 oriented(5). Total: 15. 10/03 00:56 Eye Response: spontaneous(4). Motor Response: obeys commands(6). Verbal Response: bm8 oriented(5). Total: 15. MDM: 10/02 23:13 Medical Screening Exam initiated sp3 23:25 Data reviewed: vital signs, nurses notes, old medical records, lab test result(s), EKG, sp3 radiologic studies. ED course: 63-year-old female with PMH above now with shortness of breath and hypertension. Differential diagnosis includes congestive heart failure, hypertensive urgency, and to lesser degree ACS or other pathology. I am not highly concerned about sepsis, shock, PE, pneumonia, infection or any other critical process. Patient is in no acute distress resting comfortably. Will obtain EKG, chest x-ray and general labs including BNP with disposition from there. Nitroglycerin sublingual x 1 to control blood pressure.. 10/03 00:23 ED course: BNP slightly elevated at 1300. Blood pressure not 170/96. Will give Lasix 20 sp3 mg IV and discharge patient home at this time.. 10/02 23:17 Order name: Basic Metabolic Panel; Complete Time: 00:21 sp3 10/02 23:17 Order name: CBC with Diff; Complete Time: 00:21 sp3 10/02 23:17 Order name: LFT's; Complete Time: 00:21 sp3 10/02 23:17 Order name: Magnesium; Complete Time: 00:21 sp3 10/02 23:17 Order name: NT PRO-BNP; Complete Time: 00:21 sp3 10/02 23:17 Order name: Troponin HS; Complete Time: 00:21 sp3 10/02 23:17 Order name: XRAY Chest (1 view) sp3 10/02 23:17 Order name: EKG; Complete Time: 23:17 sp3 10/02 23:17 Order name: Cardiac monitoring; Complete Time: 23:33 sp3 10/02 23:17 Order name: EKG - Nurse/Tech; Complete Time: 00:56 sp3 10/02 23:17 Order name: IV Saline Lock; Complete Time: 23:33 sp3 10/02 23:17 Order name: Labs collected and sent; Complete Time: 23:33 sp3 10/02 23:17 Order name: O2 Per Protocol; Complete Time: 23:33 sp3 10/02 23:17 Order name: O2 Sat Monitoring; Complete Time: 23:33 sp3 Administered Medications: 10/02 23:42 Drug: Nitroglycerin Sublingual 0.4 mg Sublingual once Route: Sublingual; dd2 10/03 00:56 Follow up: Response: No adverse reaction bm8 00:45 Drug: Furosemide IVP 20 mg IVP once; give over 2 minutes Route: IVP; Site: right bm8 antecubital; 00:56 Follow up: Response: No adverse reaction bm8 Disposition Summary: 10/03/24 00:23 Discharge Ordered Notes: Location: Home sp3 Condition: Stable sp3 Diagnosis - CHF exacerbation, hypertension sp3 Followup: sp3 - With: Private Physician - When: Upon discharge from the Emergency Department - Reason: Continuance of care Discharge Instructions: - Discharge Summary Sheet sp3 - Heart Failure Eating Plan sp3 Forms: - Medication Reconciliation Form sp3 - Antibiotic Education sp3 - Prescription Opioid Use sp3 - Patient Portal Instructions sp3 - Leadership Thank You Letter sp3 Signatures: Dispatcher [facility] Neida Smith MD MD sp3 Lupillo Mcdaniel RN RN bm8 DASHAWN RATLIFF RN RN dd2 Corrections: (The following items were deleted from the chart) 10/02 23:12 23:08 Home Meds: None; bm8 bm8 23:17 23:17 BASIC METABOLIC PANEL+C.LAB.BRZ ordered. EDMS EDMS 23:17 23:17 CBC+H.LAB.BRZ ordered. EDMS EDMS 23: 23:17 HEPATIC FUNCTION+C.LAB.BRZ ordered. EDMS EDMS 23:17 23:17 MAGNESIUM+C.LAB.BRZ ordered. EDMS EDMS 23: 23:17 PROBNP+C.LAB.BRZ ordered. EDMS EDMS 23:17 23:17 Troponin High Sensitivity+C.LAB.BRZ ordered. EDMS EDMS
--- NOTE | 2024-10-03 00:24 | ER ---
Nurse's Notes [facility] Name: Heaven Bhatia Age: 63 yrs Sex: Female : 1960 Arrival Date: 10/02/2024 Time: 23:04 Bed 3 Private MD: Diagnosis: CHF exacerbation, hypertension Presentation: 10/02 23:06 Chief complaint: Patient states: I have really high blood pressure. I didn't want to [facility] come but [facility] made me. Coronavirus screen: At this time, the client does not indicate any symptoms associated with coronavirus-19. Ebola Screen: Patient negative for fever greater than or equal to 101.5 degrees Fahrenheit, and additional compatible Ebola Virus Disease symptoms Patient denies exposure to infectious person. Patient denies travel to an Ebola-affected area in the 21 days before illness onset. No symptoms or risks identified at this time. Initial Sepsis Screen: Does the patient meet any 2 criteria? No. Patient's initial sepsis screen is negative. Does the patient have a suspected source of infection? No. Patient's initial sepsis screen is negative. Risk Assessment: Do you want to hurt yourself or someone else? Patient reports no desire to harm self or others. Onset of symptoms is unknown. 23:06 Method Of Arrival: EMS: [facility] bm8 23:06 Acuity: MARILYNN 3 bm8 Triage Assessment: 23:13 General: Appears in no apparent distress. comfortable, Behavior is calm, cooperative, bm8 appropriate for age. Pain: Denies pain. EENT: No deficits noted. No signs and/or symptoms were reported regarding the EENT system. Neuro: No deficits noted. Level of Consciousness is awake, alert, obeys commands, Oriented to person, place, time, situation, Appropriate for age. Cardiovascular: Reports High Blood pressure Capillary refill < 3 seconds in bilateral fingers Patient's skin is warm and dry. Respiratory: Airway is patent Respiratory effort is even, unlabored, Respiratory pattern is regular, symmetrical, Breath sounds are clear bilaterally. GI: No signs and/or symptoms were reported involving the gastrointestinal system. : No signs and/or symptoms were reported regarding the genitourinary system. Derm: No signs and/or symptoms reported regarding the dermatologic system. Musculoskeletal: No signs and/or symptoms reported regarding the musculoskeletal system. Historical: - Allergies: 23:08 No Known Allergies; bm8 - Home Meds: 23:08 Lasix Oral [Active]; albuterol sulfate 2.5 mg /3 mL (0.083 %) Inhl Solution for bm8 Nebulization [Active]; mirtazapine Oral [Active]; prednisone Oral [Active]; fluticasone propionate intranasal [Active]; - PMHx: 23:08 chronic back pain; COPD; etoh abuse; Hyperlipidemia; Hypertensive disorder; Seizure; bm8 - PSHx: 23:08 Appendectomy; backsurgery; bm8 - Immunization history:: Adult Immunizations up to date. - Infectious Disease History:: Denies. - Social history:: Smoking status: Patient/guardian denies using tobacco, Stopped _ months ago 6. Screenin:55 [facility] ED Fall Risk Assessment (Adult) History of falling in the last 3 months, bm8 including since admission Yes- physiologic fall (2 pts) Confusion or Disorientation No (0 pts) Intoxicated or Sedated No (0 pts) Impaired Gait No (0 pts) Mobility Assist Device Used No (0 pt) Altered Elimination No (0 pt) Score/Fall Risk Level 0 - 2 = Low Risk Oriented to surroundings, Maintained a safe environment, Educated pt \T\ family on fall prevention, incl call for assistance when getting out of bed, Assessed \T\ reinforced patient's understanding of fall precautions, Hourly rounding (assess needs \T\ fall precautionary measures) done, Used ambulatory aids as needed (educated on \T\ assisted with), Used gait belt as appropriate. Abuse screen: Denies threats or abuse. Nutritional screening: No deficits noted. Tuberculosis screening: No symptoms or risk factors identified. Assessment: 23:54 Reassessment: see triage assessment. bm8 10/03 00:56 Reassessment: Patient appears in no apparent distress at this time. Patient and/or bm8 family updated on plan of care and expected duration. Pain level reassessed. Patient is alert, oriented x 3, equal unlabored respirations, skin warm/dry/pink. Patient denies pain at this time. Patient states feeling better. Patient states symptoms have improved. Vital Signs: 10/02 23:06 BP 231 / 118; Pulse 82; Resp 20; Temp 97.5; Pulse Ox 94% ; Weight 73.48 kg; Height 5 bm8 ft. 2 in. ; Pain 0/10; 23:42 BP 173 / 83; Pulse 68; Resp 18; Temp 97.5; Pulse Ox 88% on R/A; Pain 0/10; bm8 10/03 00:14 BP 170 / 96; Pulse 57; Resp 18; Pulse Ox 99% on 2 lpm NC; dd2 00:56 BP 165 / 96; Pulse 77; Resp 18; Temp 97.5; Pulse Ox 95% ; Pain 0/10; bm8 10/02 23:06 Body Mass Index 29.63 (73.48 kg, 157.48 cm) bm8 10/02 23:06 Pain Scale: Adult bm8 23:42 Pain Scale: Adult bm8 00:56 Pain Scale: Adult bm8 Lanie Coma Score: 10/02 23:42 Eye Response: spontaneous(4). Motor Response: obeys commands(6). Verbal Response: bm8 oriented(5). Total: 15. 10/03 00:56 Eye Response: spontaneous(4). Motor Response: obeys commands(6). Verbal Response: bm8 oriented(5). Total: 15. ED Course: 10/02 23:06 Patient arrived in ED. bm8 23:08 Neida Tamez MD is Attending Physician. sp3 23:08 Triage completed. bm8 23:13 Lupillo Mcdaniel, RN is Primary Nurse. bm8 23:13 Arm band placed on right wrist. bm8 23:33 No provider procedures requiring assistance completed. Initial lab(s) drawn, by me, dd2 sent to lab. Inserted saline lock: 20 gauge in right antecubital area, using aseptic technique. Blood collected. Flushed with 10 mL NS. Patient maintains SpO2 saturation greater than 95% on room air. 23:41 XRAY Chest (1 view) In Process Unspecified. EDMS 23:42 Oxygen administration via nasal cannula \T\ 2L/min. dd2 23:55 Patient has correct armband on for positive identification. Bed in low position. Call [facility] light in reach. Side rails up X 1. Client placed on continuous cardiac and pulse oximetry monitoring. NIBP monitoring applied. library monitor on. Pulse ox on. NIBP on. Door closed. Noise minimized. Warm blanket given. Pillow given. Verbal reassurance given. Head of bed elevated. 10/03 00:56 Provided Education on: post er care. bm8 00:56 IV discontinued, intact, bleeding controlled, No redness/swelling at site. Pressure bm8 dressing applied. Administered Medications: 10/02 23:42 Drug: Nitroglycerin Sublingual 0.4 mg Sublingual once Route: Sublingual; dd2 10/03 00:56 Follow up: Response: No adverse reaction bm8 00:45 Drug: Furosemide IVP 20 mg IVP once; give over 2 minutes Route: IVP; Site: right bm8 antecubital; 00:56 Follow up: Response: No adverse reaction bm8 Medication: 10/02 23:55 VIS not applicable for this client. bm8 Outcome: 10/03 00:23 Discharge ordered by . sp3 00:56 Discharged to home ambulatory, bm8 00:56 Condition: stable 00:56 Discharge instructions given to patient, Instructed on discharge instructions, follow up and referral plans. no drinking with medication, no driving heavy equipment, medication usage, safety practices, Demonstrated understanding of instructions, follow-up care, medications, 00:58 Patient left the ED. bm8 Signatures: Dispatcher [employer] EDMS Neida Tamez MD MD sp3 Lupillo Mcdaniel, RN RN bm8 DASHAWN RATLIFF RN RN dd2 Corrections: (The following items were deleted from the chart) 10/02 23:12 23:08 Home Meds: None; bm8 bm8 23:55 23:42 BP 173 / 83; Pulse 68bpm; Resp 18bpm; Pulse Ox 88% RA; dd2 bm8
[2024-10-03] MEDS ORDERED: FUROSEMIDE 20 MG/ 2ML VIAL ONE (00:47)
[2024-10-03 01:14] VITALS: TEMP 97.5
[2024-10-03 01:22] VITALS: BP 165/96; O2SAT 95
--- NOTE | 2024-10-03 05:40 | RAD REPORT ---
EXAM: XR Chest, 1 View CLINICAL HISTORY: The patient is 63 years old and is Female; HTN TECHNIQUE: Frontal view of the chest. COMPARISON: No relevant prior studies available. FINDINGS: LUNGS: The lungs are hyperinflated. Mild interstitial opacity in the right lower lobe is present. PLEURAL SPACE: Unremarkable. No pneumothorax. HEART: Unremarkable. No cardiomegaly. MEDIASTINUM: Unremarkable. Normal mediastinal contour. BONES/JOINTS: Unremarkable. No acute fracture. VASCULATURE: Atherosclerosis of the aorta is present. UPPER ABDOMEN: Unremarkable as visualized. IMPRESSION: Right lower lobe atelectasis. Electronically signed by: Nereida Vanegas MD 10/03/2024 01:01 AM CDT RP Due to temporary technical issues with the PACS/Codexis reporting system, reports are being vee d by the in-house radiologist without review as a courtesy to ensure prompt reporting the interpreting radiologist is fully responsible for the content of the report. Transcribed Date/Time: 10/03/2024 5:40 AM
== END 2024-10-03 00:58 | disposition home or self-care (01) ==
LOC: ER 23:04
DX: I50.9 Heart failure, unspecified (principal); I10 Essential (primary) hypertension; J44.9 Chronic obstructive pulmonary disease, unspecified; E78.5 Hyperlipidemia, unspecified
CPT/HCPCS: 93005; 85025; 80048; 36415; 83735; 80076; 84484; 83880; 71045; 96374; 99285; J1938

== ENCOUNTER 2024-10-03 21:24 | Emergency (ER) | payer OTHER ==
--- NOTE | 2024-10-03 21:33 | ER ---
Nurse's Notes [facility] Name: Heaven Bhatia Age: 63 yrs Sex: Female : 1960 Arrival Date: 10/03/2024 Time: 21:24 Bed 18 Private MD: Diagnosis: Hypertension Presentation: 10/03 21:26 Chief complaint: EMS states: toned out to [facility] for elevated BP. Coronavirus dd2 screen: At this time, the client does not indicate any symptoms associated with coronavirus-19. Ebola Screen: No symptoms or risks identified at this time. Initial Sepsis Screen: Does the patient meet any 2 criteria? No. Patient's initial sepsis screen is negative. Does the patient have a suspected source of infection? No. Patient's initial sepsis screen is negative. Risk Assessment: Do you want to hurt yourself or someone else? Patient reports no desire to harm self or others. Onset of symptoms was October 03, 2024. 21:26 Method Of Arrival: EMS: [facility] dd2 21:26 Acuity: MARILYNN 3 dd2 Triage Assessment: 21:32 General: Appears in no apparent distress. comfortable, Behavior is calm, cooperative, dd2 appropriate for age. Pain: Denies pain. EENT: No deficits noted. No signs and/or symptoms were reported regarding the EENT system. Neuro: No deficits noted. Level of Consciousness is awake, alert, obeys commands, Oriented to person, place, time, situation, Appropriate for age. Cardiovascular: Reports WAS SENT HERE FOR HIGH BLOOD PRESSURE Denies chest pain, shortness of breath, Patient's skin is warm and dry. Chest pain is denied. Respiratory: Airway is patent Respiratory effort is even, unlabored, Respiratory pattern is regular, symmetrical. GI: No deficits noted. No signs and/or symptoms were reported involving the gastrointestinal system. : No deficits noted. No signs and/or symptoms were reported regarding the genitourinary system. Derm: No deficits noted. No signs and/or symptoms reported regarding the dermatologic system. Musculoskeletal: No deficits noted. No signs and/or symptoms reported regarding the musculoskeletal system. Circulation, motion, and sensation intact. Range of motion: intact in all extremities. Historical: - Allergies: 21:32 No Known Allergies; dd2 - PMHx: 21:32 chronic back pain; COPD; etoh abuse; Hyperlipidemia; Hypertensive disorder; Seizure; dd2 - PSHx: 21:32 Appendectomy; backsurgery; dd2 - Immunization history:: Adult Immunizations up to date. - Infectious Disease History:: Denies. - Social history:: Smoking status: Patient reports the use of cigarette tobacco products, denies chronic smoking, but will smoke occasionally. Screenin:51 [facility] ED Fall Risk Assessment (Adult) History of falling in the last 3 months, dd2 including since admission No falls in past 3 months (0 pts) Confusion or Disorientation No (0 pts) Intoxicated or Sedated No (0 pts) Impaired Gait No (0 pts) Mobility Assist Device Used No (0 pt) Altered Elimination No (0 pt) Score/Fall Risk Level 0 - 2 = Low Risk Oriented to surroundings, Maintained a safe environment, Educated pt \T\ family on fall prevention, incl call for assistance when getting out of bed, Assessed \T\ reinforced patient's understanding of fall precautions, Hourly rounding (assess needs \T\ fall precautionary measures) done. Abuse screen: Denies threats or abuse. Denies injuries from another. Nutritional screening: No deficits noted. Tuberculosis screening: No symptoms or risk factors identified. Assessment: 21:34 Reassessment: SEE TRIAGE ASSESSMENT FOR FULL ASSESSMENT. dd2 23:07 Reassessment: Patient is alert, oriented x 3, equal unlabored respirations, skin dd2 warm/dry/pink. Patient states feeling better. Patient states symptoms have improved. 23:11 Reassessment: SPOKE WITH CALLUM AT [facility]. ETA 20 MINS. dd2 Vital Signs: 21:26 BP 190 / 84; Pulse 63; Resp 16; Temp 98.3; Pulse Ox 96% on R/A; Weight 73.48 kg; dd2 22:16 BP 177 / 94; Pulse 69; Resp 16; Pulse Ox 97% on R/A; dd2 23:01 BP 152 / 87; Pulse 65; Pulse Ox 97% on R/A; dd2 ED Course: 21:26 Patient arrived in ED. dd2 21:26 Neida Tamez MD is Attending Physician. sp3 21:32 Triage completed. dd2 21:32 Arm band placed on right wrist. dd2 21:50 DASHAWN RATLIFF RN is Primary Nurse. dd2 21:51 Patient has correct armband on for positive identification. Bed in low position. Call dd2 light in reach. Side rails up X2. Client placed on continuous cardiac and pulse oximetry monitoring. NIBP monitoring applied. Door closed. Noise minimized. Warm blanket given. Pillow given. Verbal reassurance given. 21:51 No provider procedures requiring assistance completed. Patient did not have IV access dd2 during this emergency room visit. Patient maintains SpO2 saturation greater than 95% on room air. 23:15 Provided Education on: D/C EDUCATION, MEDICATION. dd2 Administered Medications: 21:57 Drug: cloNIDine PO 0.2 mg PO once Route: PO; dd2 22:30 Follow up: Response: No adverse reaction dd2 Medication: 21:51 VIS not applicable for this client. dd2 Outcome: 21:32 Discharge ordered by MD. saenz 23:[address] [facility] dd2 23:11 Condition: improved 23:11 Discharge instructions given to patient, Instructed on discharge instructions, follow up and referral plans. medication usage, Demonstrated understanding of instructions, follow-up care, medications, Prescriptions given X 1, 23:47 Patient left the ED. dd2 Signatures: Neida Tamez MD MD sp3 DASHAWN RATLIFF RN RN dd2
--- NOTE | 2024-10-03 21:33 | EDPHYS ---
Physician Documentation [facility] Name: Heaven Age: 63 yrs Sex: Female : 1960 Arrival Date: 10/03/2024 Time: 21:24 Bed 18 Private MD: ED Physician Neida Tamez HPI: 10/03 21:31 This 63 yrs old Female presents to ER via Unassigned with complaints of High Blood sp3 Pressure. 21:31 63-year-old female returns for hypertension asymptomatic. Patient was seen yesterday by sp3 me. Blood pressure at her facility was at 200 systolic which is why they sent her to the ED. Again patient has no complaints including chest pain, shortness of breath, back pain, headache, or any other signs or symptoms on ROS at this time.. Historical: - Allergies: 21:32 No Known Allergies; dd2 - PMHx: 21:32 chronic back pain; COPD; etoh abuse; Hyperlipidemia; Hypertensive disorder; Seizure; dd2 - PSHx: 21:32 Appendectomy; backsurgery; dd2 - Immunization history:: Adult Immunizations up to date. - Infectious Disease History:: Denies. - Social history:: Smoking status: Patient reports the use of cigarette tobacco products, denies chronic smoking, but will smoke occasionally. ROS: 21:32 Constitutional: Negative for fever, chills, and weight loss, Eyes: Negative for injury, sp3 pain, redness, and discharge, ENT: Negative for injury, pain, and discharge, Neck: Negative for injury, pain, and swelling, Respiratory: Negative for shortness of breath, cough, wheezing, and pleuritic chest pain, Abdomen/GI: Negative for abdominal pain, nausea, vomiting, diarrhea, and constipation, Back: Negative for injury and pain, MS/Extremity: Negative for injury and deformity, Skin: Negative for injury, rash, and discoloration, Neuro: Negative for headache, weakness, numbness, tingling, and seizure, Psych: Negative for depression, anxiety, suicide ideation, homicidal ideation, and hallucinations, Allergy/Immunology: Negative for hives, rash, and allergies, Endocrine: Negative for neck swelling, polydipsia, polyuria, polyphagia, and marked weight changes, Hematologic/Lymphatic: Negative for swollen nodes, abnormal bleeding, and unusual bruising, 21:32 All other systems are negative, Exam: 21:32 Constitutional: This is a well developed, well nourished patient who is awake, alert, sp3 and in no acute distress. Head/Face: Normocephalic, atraumatic. Eyes: Pupils equal round and reactive to light, extra-ocular motions intact. Lids and lashes normal. Conjunctiva and sclera are non-icteric and not injected. Cornea within normal limits. Periorbital areas with no swelling, redness, or edema. ENT: Nares patent. No nasal discharge, no septal abnormalities noted. External auditory canals are clear. Oropharynx with no redness, swelling, or masses, exudates, or evidence of obstruction, uvula midline. Mucous membranes moist. Neck: Trachea midline, no thyromegaly or masses palpated, and no cervical lymphadenopathy. Supple, full range of motion without nuchal rigidity, or vertebral point tenderness. No Meningismus. Chest/axilla: Normal chest wall appearance and motion. Nontender with no deformity. No lesions are appreciated. Cardiovascular: Regular rate and rhythm with a normal S1 and S2. No gallops, murmurs, or rubs. Normal PMI, no JVD. No pulse deficits. Respiratory: Lungs have equal breath sounds bilaterally, clear to auscultation and percussion. No rales, rhonchi or wheezes noted. No increased work of breathing, no retractions or nasal flaring. Abdomen/GI: Soft, non-tender, with normal bowel sounds. No distension or tympany. No guarding or rebound. No evidence of tenderness throughout. Back: No spinal tenderness. No costovertebral tenderness. Full range of motion. Skin: Warm, dry with normal turgor. Normal color with no rashes, no lesions, and no evidence of cellulitis. MS/ Extremity: Pulses equal, no cyanosis. Neurovascular intact. Full, normal range of motion. Neuro: Awake and alert, GCS 15, oriented to person, place, time, and situation. Cranial nerves II-XII grossly intact. Motor strength 5/5 in all extremities. Sensory grossly intact. Cerebellar exam normal. Normal gait. Psych: Awake, alert, with orientation to person, place and time. Behavior, mood, and affect are within normal limits. Vital Signs: 21:26 BP 190 / 84; Pulse 63; Resp 16; Temp 98.3; Pulse Ox 96% on R/A; Weight 73.48 kg; dd2 22:16 BP 177 / 94; Pulse 69; Resp 16; Pulse Ox 97% on R/A; dd2 23:01 BP 152 / 87; Pulse 65; Pulse Ox 97% on R/A; dd2 MDM: 21:31 Medical Screening Exam initiated sp3 21:32 Data reviewed: vital signs, nurses notes, old medical records. ED course: Will sp3 prescribe clonidine on a as needed basis. 1 dose in ED prior to discharge.. Administered Medications: 21:57 Drug: cloNIDine PO 0.2 mg PO once Route: PO; dd2 22:30 Follow up: Response: No adverse reaction dd2 Disposition Summary: 10/03/24 21:32 Discharge Ordered Notes: Location: Home sp3 Condition: Stable sp3 Diagnosis - Hypertension sp3 Followup: sp3 - With: Private Physician - When: Upon discharge from the Emergency Department - Reason: Continuance of care Discharge Instructions: - Discharge Summary Sheet sp3 - Hypertension, Adult sp3 Forms: - Medication Reconciliation Form sp3 - Antibiotic Education sp3 - Prescription Opioid Use sp3 - Patient Portal Instructions sp3 - Leadership Thank You Letter sp3 Prescriptions: - clonidine HCl 0.2 mg Oral tablet - take 1 tablet ORAL route every 12 hours Take as needed for blood pressure sp3 greater than 190/80; 20 tablet; Refills: 0, Product Selection Permitted Signatures: Neida Tamez MD MD sp3 DASHAWN RATLIFF RN RN dd2
[2024-10-03] MEDS ORDERED: cloNIDine HCL 0.1 MG TAB ONE (21:45)
[2024-10-04 00:33] VITALS: TEMP 98.3
[2024-10-04 00:34] VITALS: O2SAT 97
[2024-10-04 00:36] VITALS: BP 152/87
== END 2024-10-03 23:47 | disposition home or self-care (01) ==
LOC: ER 21:24
DX: I10 Essential (primary) hypertension (principal); F17.210 Nicotine dependence, cigarettes, uncomplicated
CPT/HCPCS: 99284